=== PATIENT | male | born 1955 | race Caucasian/White ===

== ENCOUNTER 2022-12-17 11:07 | Outpatient (OUT) | payer MEDICARE, SELFPAY ==
[2022-12-17 12:01] LABS: Basophils Percent Auto 0.3 % (0.2-2.0); Hematocrit 42.8 % (42.0-54.0); Hemoglobin 14.3 g/dL (14.0-18.0); Immature Granulocytes Abs Auto 0.01 10^3/uL (0.00-0.03); Immature Granulocytes Pct Auto 0.2 % (0.0-0.5); Lymphocytes Absolute Auto 1.6 10^3/uL (1.2-3.8); Lymphocytes Percent Auto 25.2 % (20.5-60.0); Mean Corpuscular HGB Conc 33.4 g/dL (29.9-35.2); Mean Corpuscular Hemoglobin 31.6 pg (25.9-34.0); Mean Corpuscular Volume 94.5 fL (80.0-94.0); Mean Platelet Volume 10.1 fL (9.5-13.5); Monocytes Absolute Auto 0.4 10^3/uL (0.3-0.8); Monocytes Percent Auto 6.9 % (1.7-12.0); Neutrophils Absolute Auto 4.2 10^3/uL (1.4-6.5); Neutrophils Percent Auto 67.4 % (43.0-75.0); Platelet Count 222 10^3/uL (150-450); Red Blood Count 4.53 10^6/uL (4.70-6.10); Red Cell Distribution Width 13.2 % (11.0-15.0); White Blood Count 6.3 10^3/uL (4.0-11.0)
--- NOTE | 2022-12-17 12:02 | PM.PRESUREVA ---
History of Present Illness History of Present Illness Chief complaint: bladder lesion, history of bladder cancer Narrative: Patient presents for preadmission testing. Please see HPI from Dr. Devries dated 12/10/2022. Review of Systems ROS Narrative Please see ROS from Dr. Devries dated . [facility] Medical History (Updated 12/17/22 @ 12:04 by China Marvin NP) Surgical History (Updated 12/17/22 @ 11:54 by China Marvin NP) (07/18/22) (07/16/22) Family History (Updated 12/17/22 @ 11:54 by China Marvin NP) Other Family history of hypertension Family history of lung cancer Family history of prostate cancer Family history of throat cancer Social History (Updated 12/17/22 @ 11:57 by China Marvin NP) Within the past year, how often did you have a drink containing alcohol: 2-3 times a week Smoking status: Current every day smoker Non-prescribed substance use: cannabis (any form) Previous occupational history: Retired Highest level of school completed/degree received: high school graduate Meds Home Medications and Allergies Allergies Allergy/AdvReac Type Severity Reaction Status Date / Time No Known Drug Allergies Allergy Verified 12/17/22 11:26 Exam Narrative Exam Narrative: Constitutional: Awake, alert, comfortable, well-appearing, nontoxic, interactive, vital signs as charted Head: Normocephalic, atraumatic Neck: Supple, normal appearance, normal range of motion, no meningeal signs, no lymphadenopathy Respiratory: No respiratory distress, breath sounds clear Cardiovascular: Regular rate and rhythm, strong and regular heart tones Abdomen: Nontender, normal bowel sounds, soft, no CVA tenderness Musculoskeletal: Normal gait, no swelling or edema Skin: No rashes or induration, no lesions, only visible skin inspected Neuro: No neurological deficits, normal sensation Psychiatric: Oriented ?3, normal affect Assessment and Plan Assessment and Plan (1) Bladder cancer: (2) Bladder tumor: (3) Lesion of bladder: Plan Cystoscopy, bladder biopsy, TURBT scheduled with Dr. Devries 01/09/2023.
[2022-12-17 12:18] LABS: Prothrombin Time 10.6 sec (9.0-11.6)
[2022-12-17 13:25] LABS: Anion Gap 11.3; BUN Creatinine Ratio 15.5; Calcium 9.3 mg/dL (8.5-10.1); Chloride 106 mmol/L (98-107); Estimated GFR (African America >60 (>=60); Estimated GFR (Non-African Ame >60 (>=60); Glucose 114 mg/dL (74-106); Potassium 4.3 mmol/L (3.5-5.1); Sodium 143 mmol/L (136-145)
== END 2022-12-17 11:08 | disposition home or self-care (01) ==
LOC: PST 11:08
PROVIDERS: PCP Family Medicine; Visit Provider Urology
DX: Z01.812 Encounter for preprocedural laboratory examination (principal); D49.4 Neoplasm of unspecified behavior of bladder; Z85.51 Personal history of malignant neoplasm of bladder; N40.0 Benign prostatic hyperplasia without lower urinary tract symptoms; N20.0 Calculus of kidney; Z80.42 Family history of malignant neoplasm of prostate
CPT/HCPCS: 80048; 85025; 85610; 85730; G0463

== ENCOUNTER 2023-01-09 06:57 | Day surgery (SDC) | payer MEDICARE, SELFPAY ==
[2022-12-17 11:54] VITALS: BP 118/72; PULSE 62; RESP 14; TEMP 36.6; O2SAT 98; BMI 25.7
[2023-01-09] VITALS (10 sets, daily range): BP systolic 120–144; BP diastolic 69–88; PULSE 55–73; RESP 11–24; TEMP 36.2; O2SAT 94–99; BMI 25.4
[2023-01-09 07:21] LABS: Partial Thromboplastin Time 28.5 sec (22.3-36.2)
[2023-01-09] MEDS: LACTATED RINGER'S SOLUTION 1,000 ML 50 ML IV ×2 (07:35→08:33)
[2023-01-09] MEDS: CEFAZOLIN SODIUM/DEXTROSE,ISO 1 GM/50 ML IV.SOLN IV (07:51)
--- NOTE | 2023-01-09 08:42 | P.URON_ITS ---
Urology Surgery Operative Note Operative Note Procedure Date: 01/09/23 Time Out Performed: yes Pre-op Diagnosis: bladder lesions Post-op Diagnosis: same as pre-op Procedures performed: #1. Cystoscopy. #2. Transurethral resection of bladder lesions approximately 3 cm Anesthesia: FELIX Primary Surgeon: John Devries Complications: none Estimated blood loss (mL): 5 Findings: raised red lesions on the periphery of prior resection sites. Specimens: bladder lesions. 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 He has undergone bacille Calmette-Zhao initiation and maintenance treatments. On surveillance cystoscopy he was found to have a raised red areas along the periphery of prior resection sites. He now presents for cystoscopy and transurethral resection of these lesions. He has signed an informed consent after all risks were explained. Detailed description of Procedure: The patient was brought to the operating room and placed on the operating room table in the supine position. SCDs were placed on the lower extremities and turned on and functioning during the entire case. Timeout was done by all parties in the room. We all agreed upon the patient's identification and the planned procedures for this patient. Genn. anesthesia was then administeredvia the endotracheal route withh paralysis. The patient was then repositioned into the modified dorsal lithotomy position. All pressure points were satisfactorily padded. Genitalia were sterilely prepped and draped in usual fashion.started by passing a 26 Occitan Olympus resectoscope with the standard bipolar loop electrode per urethra and into the bladder. No new tumors were noted. The previously seen raised red areas along the periphery of the prior resection site were noted. I uniformly and deeply resected these areas. The resection beds were coagulated with the loop electrode. The [employer] evacuator was used to get all the tumor pieces out of the bladder. These were sent for permanent sections. The rest of the bladder was very carefully evaluated. I found no evidence of any other lesions or tumors. Upon completion, there was no bleeding. I elected not to place a catheter. The bladder was drained of its contents. The scope was then removed. The anesthetic was then reversed. He was then transferred to a [facility] bed and wheeled to PACU in stable condition.
--- NOTE | 2023-01-09 09:48 | PC.NURSE ---
Denies need to void at present time
--- NOTE | 2023-01-09 10:28 | PC.NURSE ---
1011- voids 100 cc of clear yellow urine without difficulty via urinal.
== END 2023-01-09 10:30 | disposition home or self-care (01) ==
PROVIDERS: PCP Family Medicine; Visit Provider Urology
PROC: (CPT 52235; principal; 2023-01-09 08:00)
DX: C67.9 Malignant neoplasm of bladder, unspecified (principal); Z85.51 Personal history of malignant neoplasm of bladder; N40.1 Benign prostatic hyperplasia with lower urinary tract symptoms; Z87.442 Personal history of urinary calculi; Z80.42 Family history of malignant neoplasm of prostate; R97.20 Elevated prostate specific antigen [PSA]; R35.1 Nocturia; R80.9 Proteinuria, unspecified; N52.9 Male erectile dysfunction, unspecified; F17.210 Nicotine dependence, cigarettes, uncomplicated
CPT/HCPCS: 52235; 36415; 85730; 88305; J2704

== ENCOUNTER 2023-01-15 09:36 | Outpatient (OUT) | payer MEDICARE, SELFPAY ==
--- NOTE | 2023-01-15 09:39 | CT_ITS ---
[address] [address] Patient Name: DARIAN DUENAS MRN: [id number] date: 1955 Sex: M Assigned Patient Location: CT Current Patient Location: Accession/Order Number: [id number] Exam Date: 01/15/2023 09:42 Report Date: 01/16/2023 09:07 At the request of: TANNER WILLIS Procedure: CT lung screening low-dose EXAMINATION: CT lung screening low-dose HISTORY: Nicotine Dependence F17.210 COMPARISON: No relevant comparison available. TECHNIQUE: Axial, Coronal, and Sagittal images were created without the administration of IV contrast material. Dose reduction techniques were achieved by using automated exposure control and/or adjustment of mA and/or kV according to patient size and/or use of iterative reconstruction technique. FINDINGS: LUNGS: Numerous tiny calcifications scattered within the lungs compatible with chronic granulomatous disease. No suspicious nodules or infiltrates. Minimal emphysematous changes. PLEURA: No mass, effusion, or pneumothorax. VASCULATURE: No abnormality. VALENTINO: Calcified lymph nodes compatible with chronic granulomatous disease. MEDIASTINUM: Calcified lymph nodes. CARDIAC: No enlargement, pericardial thickening, or significant calcification. AORTA: No aneurysm or dissection. CHEST WALL: No mass or axillary adenopathy BONES: No bone lesion or fracture. LIMITED ABDOMEN: No suspicious findings. Limited images of the upper abdomen. OTHER: Negative. CT/CT lung screening low-dose IMPRESSION: 1. Lung-RADS Category 1 Negative. No nodules and definitely benign nodules. Continue annual screening with LDCT in 12 months. Electronically authenticated by: CLARIBEL COX Date: 01/16/2023 09:07
== END 2023-01-15 09:37 | disposition home or self-care (01) ==
LOC: CT 09:36
PROVIDERS: PCP Family Medicine; Visit Provider Family Medicine
DX: F17.210 Nicotine dependence, cigarettes, uncomplicated (principal)
CPT/HCPCS: 71271

== ENCOUNTER 2023-02-12 10:08 | Outpatient (OUT) | payer MEDICARE, SELFPAY ==
--- NOTE | 2023-02-12 10:56 | PM.PRESUREVA ---
History of Present Illness History of Present Illness Chief complaint: highgrade bladder CA Narrative: Patient presents for preadmission testing. The patient states he has a history of bladder cancer. He's had several procedures for this and is frustrated at this point that he needs another procedure. His last cystoscopy/TURBT was done here on 01/09/2023. The patient states he's not having any urinary complaints at this time and he is not taking any medications. Review of Systems ROS Narrative REVIEW OF SYSTEMS: Negative except as stated in HPI, ten or more systems reviewed. Constitutional: No fever , chills, weakness ENT: No sore throat or epistaxis Cardiovascular: No edema, chest pain, palpitations, or activity intolerance Respiratory: No shortness of breath, cough, or wheezing Musculoskeletal: No joint pain or swelling Gastrointestinal: No abdominal pain, constipation, diarrhea, or vomiting Genitourinary: No dysuria or hematuria Neurological: No numbness, tingling, weakness, or headache Psychiatric: No mood changes PFSH PFSH Medical History (Updated 12/17/22 @ 12:04 by China Marvin NP) Arthritis ?M19.90 - Unspecified osteoarthritis, unspecified site (ICD-10) Bladder cancer ?C67.9 - Malignant neoplasm of bladder, unspecified (ICD-10) Bladder tumor ?D49.4 - Neoplasm of unspecified behavior of bladder (ICD-10) Groin pain ?R10.30 - Lower abdominal pain, unspecified (ICD-10) Heartburn ?R12 - Heartburn (ICD-10) Lesion of bladder ?N32.9 - Bladder disorder, unspecified (ICD-10) Shoulder joint derangement ?M24.9 - Joint derangement, unspecified (ICD-10) Tooth fracture ?S02.5XXA - Fracture of tooth (traumatic), initial encounter for closed fracture (ICD-10) Surgical History (Updated 02/12/23 @ 10:55 by China Marvin NP) H/O arthroscopy of shoulder ?Z98.890 - Other specified postprocedural states (ICD-10) H/O cystoscopy (01/09/23) ?Z98.890 - Other specified postprocedural states (ICD-10) H/O hemorrhoidectomy ?Z98.890 - Other specified postprocedural states (ICD-10) H/O umbilical hernia repair ?Z98.890 - Other specified postprocedural states (ICD-10) ?Z87.19 - Personal history of other diseases of the digestive system (ICD-10) History of arthroplasty of knee ?Z96.659 - Presence of unspecified artificial knee joint (ICD-10) History of colonoscopy ?Z98.890 - Other specified postprocedural states (ICD-10) History of esophagogastroduodenoscopy (EGD) ?Z98.890 - Other specified postprocedural states (ICD-10) S/P cystoscopy (07/18/22) ?Z98.890 - Other specified postprocedural states (ICD-10) S/P cystoscopy (07/16/22) ?Z98.890 - Other specified postprocedural states (ICD-10) Family History (Updated 12/17/22 @ 11:54 by China Marvin NP) Other Family history of hypertension Family history of lung cancer Family history of prostate cancer Family history of throat cancer Social History (Updated 01/09/23 @ 07:23 by Zara Denise RN) Within the past year, how often did you have a drink containing alcohol: 2-4 times a month Smoking status: Current every day smoker Non-prescribed substance use: cannabis (any form) Previous occupational history: Retired Highest level of school completed/degree received: high school graduate Meds Home Medications and Allergies Allergies Allergy/AdvReac Type Severity Reaction Status Date / Time No Known Drug Allergies Allergy Verified 02/12/23 10:28 Exam Narrative Exam Narrative: Constitutional: Awake, alert, comfortable, well-appearing, nontoxic, interactive, vital signs as charted Head: Normocephalic, atraumatic Neck: Supple, normal appearance, normal range of motion, no meningeal signs, no lymphadenopathy Respiratory: No respiratory distress, breath sounds clear Cardiovascular: Regular rate and rhythm, strong and regular heart tones Abdomen: Nontender, normal bowel sounds, soft, no CVA tenderness Musculoskeletal: Normal gait, no swelling or edema Skin: No rashes or induration, no lesions, only visible skin inspected Neuro: No neurological deficits, normal sensation Psychiatric: Oriented ?3, normal affect Assessment and Plan Assessment and Plan (1) Bladder cancer: Plan Cystoscopy, re- resection of bladder tumor bed scheduled with Dr. Devries 02/20/2023.
[2023-02-12 10:57] LABS: Basophils Percent Auto 0.3 % (0.2-2.0); Hemoglobin 14.7 g/dL (14.0-18.0); Immature Granulocytes Abs Auto 0.02 10^3/uL (0.00-0.03); Immature Granulocytes Pct Auto 0.3 % (0.0-0.5); Lymphocytes Absolute Auto 1.5 10^3/uL (1.2-3.8); Lymphocytes Percent Auto 21.5 % (20.5-60.0); Mean Corpuscular HGB Conc 33.4 g/dL (29.9-35.2); Mean Corpuscular Volume 95.9 fL (80.0-94.0); Mean Platelet Volume 10.3 fL (9.5-13.5); Monocytes Absolute Auto 0.5 10^3/uL (0.3-0.8); Monocytes Percent Auto 7.7 % (1.7-12.0); Neutrophils Absolute Auto 4.7 10^3/uL (1.4-6.5); Neutrophils Percent Auto 70.2 % (43.0-75.0); Platelet Count 229 10^3/uL (150-450); Red Blood Count 4.59 10^6/uL (4.70-6.10); Red Cell Distribution Width 13.2 % (11.0-15.0); White Blood Count 6.8 10^3/uL (4.0-11.0)
[2023-02-12 11:30] LABS: INR 1.03; Partial Thromboplastin Time 28.9 sec (22.3-36.2); Prothrombin Time 10.9 sec (9.0-11.6)
[2023-02-12 11:54] LABS: Anion Gap 10.7; BUN Creatinine Ratio 14.9; Calcium 9.2 mg/dL (8.5-10.1); Carbon Dioxide 28.3 mmol/L (21.0-32.0); Chloride 104 mmol/L (98-107); Estimated GFR (African America >60 (>=60); Estimated GFR (Non-African Ame >60 (>=60); Glucose 98 mg/dL (74-106); Sodium 139 mmol/L (136-145)
== END 2023-02-12 10:09 | disposition home or self-care (01) ==
LOC: PST 10:09
PROVIDERS: PCP Family Medicine; Visit Provider Urology
DX: Z01.812 Encounter for preprocedural laboratory examination (principal); Z85.51 Personal history of malignant neoplasm of bladder; Z80.42 Family history of malignant neoplasm of prostate
CPT/HCPCS: 80048; 85025; 85610; 85730; G0463

== ENCOUNTER 2023-02-20 07:44 | Day surgery (SDC) | payer MEDICARE, SELFPAY ==
[2023-02-12 10:53] VITALS: BP 120/72; PULSE 61; RESP 16; TEMP 36.6; O2SAT 97; BMI 25.6
[2023-02-20] VITALS (8 sets, daily range): BP systolic 118–165; BP diastolic 56–91; PULSE 54–74; RESP 12–26; TEMP 36.2–36.3; O2SAT 97–100
[2023-02-20] MEDS: LACTATED RINGER'S SOLUTION 1,000 ML 50 ML IV (08:18)
[2023-02-20] MEDS: CEFAZOLIN SODIUM/DEXTROSE,ISO 1 GM/50 ML IV.SOLN IV (08:45)
--- NOTE | 2023-02-20 09:59 | PM.URSON ---
Urology Surgery Operative Note Operative Note Procedure Date: 02/20/23 Time Out Performed: yes Pre-op Diagnosis: history of high-grade invasive TCC of the bladder Post-op Diagnosis: same as pre-op Procedures performed: #1. Cysstoscopy. #2. Transurethral resection of bladder tumors and former tumor beds. #3. Bladder biopsies with cold cup forceps. Anesthesia: GETA Primary Surgeon: John Devries Complications: none Estimated blood loss (mL): 5 Findings: a few new tiny tumors on the floor of the bladder adjacent to the resection bed. A new red raised area on the back wall. Specimens: #1. Re-rresection of tumor beds and new tumors. #2. Muscle biopsies of tumor bed with cold cup forceps. Drains: 20 Icelandic Parker catheter in the bladder. Indications for Procedures: this gentleman has a history of high-grade invasive TCC of the bladder. And his last resection in December muscle was not seen by pathology in the specimen. He now presents for re-resection of his tumor beds in order to get muscle for accurate staging. He has signed an informed consent after all risks were explained in great detail. Detailed description of Procedure: The patient was brought to the operating room and placed on the operating room table in the supine position. SCDs were placed on the lower extremities and turned on and functioning during the entire case. Timeout was done by all parties in the room. We all agreed upon the patient's identification and the planned procedures for this patient. Genn. anesthesia was then administered. The patient was then repositioned into the modified dorsal lithotomy position. All pressure points were satisfactorily padded. Genitalia were sterilely prepped and draped in usual fashion.I started by passing a 26 Icelandic Olympus resectoscope with the standard bipolar loop electrode per urethra and into the bladder. The anterior urethra was normal. The prostatic urethra was open. Panendoscopy in the bladder showed that adjacent to a prior resection site. There was a few tiny tumors which were new. For on the back wall as was a new red raised area adjacent to this. All. Using the resectoscope. I uniformly resected the previous resection bed making sure to get more muscle out. I also resected these new tiny tumors. The raised red area adjacent on the back wall was also resected. All of this tumor was extracted out with the [employer] evacuator and sent for permanent sections labeled tumor resections. I then passed a 22 Icelandic cystoscope and the bladder and used a cold cup biopsy forceps and biopsied. The resected beds directly into muscle. 4 separate biopsies were obtained from the muscle and these were sent separately labeled muscle biopsies of bladder. The resectoscope was then passed back in the bladder and I coagulated the resection beds him today. Upon completion there was no tumor or red area remaining in the bladder. There was no bleeding. The scope was then removed. I then placed a 20 Icelandic two-way Parker in the bladder and 10 mL of fluid in the balloon. It drained clear. The anesthetic was then reversed. He was then transferred to a [facility] bed and wheeled to PACU in stable condition. He will be discharged to home later today with a prescription for Keflex 500 mg twice a day for a week and Vesicare 10 mg daily for a week. Pending review of the pathology. We will give him another 6 treatments of bacille Calmette-Zhao starting in early March.
[2023-02-20] MEDS: SOLIFENACIN SUCCINATE 10 MG TABLET PO (10:37)
== END 2023-02-20 11:08 | disposition home or self-care (01) ==
PROVIDERS: PCP Family Medicine; Visit Provider Urology
PROC: (CPT 52204; principal; 2023-02-20 08:40)
DX: N40.1 Benign prostatic hyperplasia with lower urinary tract symptoms (principal); R31.9 Hematuria, unspecified; R97.20 Elevated prostate specific antigen [PSA]; N52.9 Male erectile dysfunction, unspecified; Z80.42 Family history of malignant neoplasm of prostate; R12 Heartburn; N32.9 Bladder disorder, unspecified; Z96.659 Presence of unspecified artificial knee joint; F17.200 Nicotine dependence, unspecified, uncomplicated
CPT/HCPCS: 52204; 52235; 36415; 88305; 88307; 88341; 88342; J2704

== ENCOUNTER 2023-08-25 14:26 | Outpatient (OUT) | payer MEDICARE, SELFPAY ==
--- OUTSIDE RECORDS SUMMARY | 2023-08-25 14:48 | XMS_ITS | CCD ---
Author Organization [facility]ini[facility] Care Team Providers Care Coal Pipeline Operator Name Role Phone CATRACHO WILLIS Primary Care UnavailJAMIE Collier Attending Unavailable Jesika, Nahid Unavailable Les Paul Unavailable MD Catracho Willis Primary Care Provider [phone] DO Nahid Canchola Attending Provider CATRACHO WILLIS Primary Care Physician [phone] MD Catracho Willis Primary Care Provider DO Nahid Canchola A Attending Provider [phone] MD Catracho Willis Primary Care Provider DO Nahid Canchola A Attending Provider MD Mickie Cooper Attending Provider Mickie Cooper Unavailable Catracho Willis Primary Care Unavailable Jesika, Nahid A Admitting Unavailable Jesika, Nahid A Attending Unavailable Catracho Willis Primary Care Unavailable Jesika, Nahid A Attending Unavailable Jesika, Nahid A Admitting Unavailable Jesika, Nahid A Attending Unavailable Catracho Willis Primary Care Unavailable Jesika, Nahid A Admitting Unavailable Jesika, Nahid A Attending Unavailable Catracho Willis Primary Care Unavailable Jesika, Nahid A Admitting Unavailable Jesika, Nahid A Attending Unavailable Catracho Willis Primary Care Unavailable Jesika, Nahid A Admitting Unavailable Mickie Cooper Attending Unavailable Nelly, Catracho Primary Care Unavailable Mickie Cooper Admitting Unavailable Nelly, Catracho Primary Care Unavailable Jesika, Nahid A Attending Unavailable Jesika, Nahid A Admitting Unavailable Nelly, Catracho Primary Care Unavailable Jesika, Nahid A Admitting Unavailable Jesika, Nahid A Attending Unavailable Naderer, Catracho Primary Care Unavailable Jesika, Nahid A Admitting Unavailable Jesika, Nahid A Attending Unavailable DEVRIES ., DR RANDALL Consulting Unavailable DEVRIES ., DR RANDALL Admitting Unavailable NADERER, DR CATRACHO Coronado Primary Care Unavailable DEVRIES ., DR RANDALL Attending Unavailable ZIEBER, DR CLARIBEL Vasquez Consulting Unavailable NADERER, DR CATRACHO Coronado Primary Care Unavailable ETHAN, YAHAIRA Admitting Unavailable ETHAN, YAHAIRA Attending Unavailable ETHAN, YAHAIRA Consulting Unavailable DEVRIES ., DR RANDLAL Consulting Unavailable DEVRIES ., DR RANDALL Admitting Unavailable NADERER, DR CATRACHO Coronado Primary Care Unavailable DEVRIES ., DR RANDALL Attending Unavailable NAHID CANCHOLA Admitting Unavailable NADERER, DR CATRACHO Coronado Primary Care Unavailable NAHID CANCHOLA Attending Unavailable DEVRIES ., DR RANDALL Attending Unavailable NADERER, DR CATRACHO Coronado Primary Care Unavailable DEVRIES ., DR RANDALL Consulting Unavailable DEVRIES ., DR RANDALL Admkyaw Unavailable SANTACRUZSINAN Consulting Unavailable NORMA SMALL Consulting Unavailable DEVRIES ., DR RANDALL Attending Unavailable DEVRIES ., DR RANDALL Admitting Unavailable DEVRIES ., DR RANDALL Consulting Unavailable NADERER, DR CATRACHO Coronado Primary Care Unavailable DAMEON II, MICKIE Consulting Unavailable FILUTZE, LASHONDA Consulting Unavailable Hayley, Margaret Unavailable ETHAN, YAHAIRA E Attending Unavailable ETHAN, YAHAIRA E Attending Unavailable ETHAN, YAHAIRA E Attending Unavailable ETHAN, YAHAIRA E Attending Unavailable DEVRIES, Tonia R Admitting Unavailable DEVRIES, Tonia R Attending Unavailable DEVRIES, Tonia R Attending Unavailable DEVRIES, Tonia R Attending Unavailable DEVRIES, Tonia R Attending Unavailable DEVRIES, Tonia R Attending Unavailable DEVRIES, Tonia R Attending Unavailable DEVRIES, Tonia R Attending Unavailable DEVRIES, Tonia R Attending Unavailable ETHAN, YAHAIRA E Attending Unavailable ETHAN, YAHAIRA E Attending Unavailable DEVRIES, Tonia R Attending Unavailable ETHAN, YAHAIRA E Attending Unavailable DEVRIES, Tonia R Admitting Unavailable DEVRIES, Tonia R Attending Unavailable DEVRIES, Tonia R Admitting Unavailable DEVRIES, Tonia R Attending Unavailable DEVRIES, Tonia R Attending Unavailable DEVRIES, Tonia R Attending Unavailable DEVRIES, Tonia R Attending Unavailable ETHAN, YAHAIRA E Admitting Unavailable ETHAN, YAHAIRA E Attending Unavailable DEVRIES, Tonia R Admitting Unavailable DEVRIES, Tonia R Attending Unavailable DEVRIES, Tonia R Attending Tonia Sales Attending Unavailable Tonia DEVRIES Attending Unavailable Tonia DEVRIES Attending Unavailable Tonia DEVRIES Attending Unavailable CATRACHO WILLIS Attending Unavailable FLAQUITA SEE Attending Unavailable Medications Current Medications Medication Drug Class(es) Dates Sig (Normalized) Sig (Original) cephalexin 500 mg oral capsule (1 source) Cephalosporin Antibacterial Start: 07-26-2022 cephalexin 500 mg Cap Refills(s) 0 Start Date: 07/26/22 Status: Ordered diclofenac sodium 0.01 mg/mg topical gel (10 sources) Nonsteroidal Anti-inflammatory Drug Start: 05-18-2021 apply 1 g topically once daily Diclofenac Sodium Active 1 GM TOPICAL Daily May 18, 2021 1:00am Start: 03-12-2021 Voltaren 1 % a pply 1-2 grams to affected area Transdermal BID PRN for 30 days Feb, Active Start: 11-09-2020 take 1 tablet by brian th every twelve hours Diclofenac Sodium 75 MG 1 tablet Orally Twice a day for 30 day(s) Oct, Active doxycycline hyclate 100 mg oral tablet (4 sources) Tetracycline-class Drug Start: 07-02-2021 take 1 tablet by mouth every twelve hours Doxycycline Hyclate 100 MG 1 tablet Orally Twice a day for 7 days Do not fill 07/03/21 Jun, Active Magnesium (1 source) Magnesium Active 24 hr mirabegron 50 mg extended release oral tablet (17 sources) beta3-Adrenergic Agonist Start: 09-10-2022 take 1 tablet by mouth once daily Myrbetriq 50 mg oral tablet, extended release 50 mg = 1 tab(s), Oral, Daily, # 90 tab(s), Refills(s) 3, Pharmacy: [facility], 182, cm, 09/10/22 8:56:00 EDT, Height/Length Dosing, 85, kg, 09/10/22 8:56:00 EDT, Weight Dosing Start Date: 09/10/22 Status: Ordered Start: 04-05-2022 take 1 tablet by brian th once daily Myrbetriq 50 mg oral tablet, extended release 50 mg = 1 tab(s), Oral, Daily, # 30 tab(s), Refills(s) 11, Pharmacy: [facility], 182, cm, 01/07/22 12:37:00 EDT, Height/Length Dosing, 82, kg, 01/07/22 12:37:00 EDT, Weight Dosing Start Date: 04/05/22 Status: Ordered Multivitamin preparation (18 sources) Start: 05-18-2021 take 1 tablet by mouth once daily Multivitamin Active 1 TAB PO Daily May 18, 2021 12:00am Start: 05-18-2021 take 1 tablet by brian th once daily Multivitamin Active 1 TAB PO Daily May 18, 2021 1:00am take 1 tablet by brian th once daily Multivitamin - 1 tablet Orally Once a day Not-Taking take 1 tablet by brian th once daily Multivitamin - 1 tablet Orally Once a day Active omeprazole 40 mg delayed release oral capsule (18 sources) Proton Pump Inhibitor Start: 05-18-2021 Omeprazo le Active 40 MG PO Q48H May 18, 2021 1:00am take 1 capsule by mouth once ethan ly Omeprazole 40 MG 1 capsule 30 minutes before morning meal Orally Once a day Not-Taking oxybutynin chloride 5 mg oral tablet (3 sources) Cholinergic Muscarinic Antagonist Start: 05-13-2023 End: 05-07-2024 take 1 tablet by mouth at bedtime oxybutynin 5 mg Tab 5 mg = 1 tab(s), Oral, Bedtime, X 30 day(s), # 30 tab(s), Refills(s) 11, Pharmacy: [facility], 182, cm, 05/13/23 9:11:00 EST, Height/Length Dosing, 84, kg, 05/13/23 9:11:00 EST, Weight Dosing Start Date: 05/13/23 Stop Date: 05/07/24 Status: Ordered sulfamethoxazole 800 mg / trimethoprim 160 mg oral tablet (3 sources) Dihydrofolate Reductase Inhibitor Antibacterial, Sulfonamide Antimicrobial Start: 03-10-2023 End: 03-20-2023 take 1 tablet by mouth twice daily Bactrim D.S. 800 mg-160 mg Tab 1 tab(s), Oral, BID for 10 day(s), 20 tab(s), Refill(s) 0, [facility], 182, cm, 03/03/23 9:14:00 EST, Height/Length Dosing, 84, kg, 03/03/23 9:14:00 EST, Weight Dosing Start Date: 03/10/23 Stop Date: 03/20/23 Status: Ordered Start: 08-27-2022 End: 09-03-2022 take 1 tablet by mouth twice daily Bactrim D.S. 800 mg-160 mg Tab 1 tab(s), Oral, BID for 7 day(s), 14 tab(s), Refill(s) 0, [facility], 182, cm, 08/27/22 9:05:00 EDT, Height/Length Dosing, 85, kg, 08/27/22 9:05:00 EDT, Weight Dosing Start Date: 08/27/22 Stop Date: 09/03/22 Status: Ordered Completed/Discontinued Medications Medication Drug Class(es) Dates Sig (Normalized) Sig (Original) aspirin 81 mg chewable tablet (10 sources) Platelet Aggregation Inhibitor, Nonsteroidal Anti-inflammatory Drug Start: 07-02-2021 take 1 tablet by mouth every twelve hours Aspirin 81 MG 1 tablet Orally twice a day for 37 days Do not fill 07/03/21 Jun, Not-Taking celecoxib 100 mg oral capsule (4 sources) Nonsteroidal Anti-inflammatory Drug Start: 09-28-2021 take 1 capsule by mouth every twelve hours Celecoxib 100 MG 1 capsule with food Orally Twice a day for 30 day(s) Sep, Not-Taking ciprofloxacin 500 mg oral tablet (5 sources) Quinolone Antimicrobial Start: 11-05-2022 take 1 tablet by mouth once daily Cipro 500 mg Tab 500 mg = 1 tab(s), Oral, Daily, Take 1 tablet the day before the procedure and 1 tablet after the procedure, # 6 tab(s), Refills(s) 0, Pharmacy: [facility], 182, cm, 10/22/22 9:11:00 EDT, Height/Length Dosing, 84, kg, 10/22/22 9:11:00 EDT,... Start Date: 11/05/22 Status: Ordered Start: 07-26-2022 Cipro 500 mg T ab 500 mg = 1 tab(s), Oral, As Directed, Pt to take 1 tab the day before procedure and the 2nd tab the day of procedure once completed., # 2 tab(s), Refills(s) 0, Pharmacy: [facility], 182, cm, 07/26/22 9:01:00 EDT, Height/Length Dosing, 82, k... Start Date: 07/26/22 Status: Ordered Start: 06-25-2022 take 1 tablet by brian th once daily Cipro 500 mg Tab 500 mg = 1 tab(s), Oral, Daily, Take 1 tablet the day before the procedure and 1 tablet after the procedure, # 2 tab(s), Refills(s) 0, Pharmacy: [facility], 182, cm, 06/05/22 11:46:00 EDT, Height/Length Dosing, 82, kg, 06/05/22 11:46:00 EDT... Start Date: 06/25/22 Status: Ordered cyclobenzaprine hydrochloride 10 mg oral tablet (9 sources) Muscle Relaxant Start: 07-02-2021 take 1 tablet by mouth every eight hours as needed for muscle spasms Cyclobenzaprine HCl 10 MG 1 tablet as needed for muscle spasm Orally every 8 hours for 14 days Jun, Not-Taking docusate sodium 100 mg oral capsule (10 sources) Start: 07-02-2021 take 1 capsule by mouth every twelve hours Colace 100 MG 1 capsule Orally twice a day for 14 days Do not fill 07/03/21 Jun, Not-Taking oxyCODONE hydrochloride 5 mg oral tablet (10 sources) Opioid Agonist Start: 07-02-2021 take 1 tablet by mouth every four hours as needed for pain oxyCODONE HCl 5 MG 1 tablet as needed for pain Orally every 4 hours for 7 days Jun, Not-Taking tadalafil 10 mg oral tablet (15 sources) Phosphodiesterase 5 Inhibitor Start: 02-17-2023 take 1-2 tablets by mouth every hour as needed tadalafil 10 mg Tab 10 mg = 1 tab(s), Oral, Daily, PRN for erectile dysfunction, Take 1-2 pills by mouth, 1 hour prior to sexual relations., # 30 tab(s), Refills(s) 3, Pharmacy: [facility], 182, cm, 01/17/23 10:30:00 EDT, Height/Length Dosing, 84, kg, 01/17/23 10:30:00 EDT, Weight Dosing Start Date: 02/17/23 Status: Ordered Start: 09-21-2021 take 1 tablet by brian th every hour as needed, then take 2 tablets by mouth every twenty-four hours as needed Cialis 10 mg Tab 10 mg = 1 tab(s), Oral, Daily, PRN for erectile dysfunction, Take 1 tab 1 hour prior to sexual activity as needed. Don't exceed 2 tabs (20 mg) in a 24 hour period., # 30 tab(s), Refills(s) 3, Pharmacy: [facility], 182, cm, 12/04/20 11:58:0... Start Date: 09/21/21 Status: Ordered traMADol hydrochloride 50 mg oral tablet (10 sources) Opioid Agonist Start: 07-02-2021 take 1 tablet by mouth every four hours as needed for pain traMADol HCl 50 MG 1 tablet as needed for pain Orally every 4 hours for 7 days Jun, Not-Taking triamcinolone acetonide 40 mg/ml injectable suspension (20 sources) Corticosteroid Start: 06-10-2022 Kenalog-40 May, 40 mg Start: 03-12-2021 Kenalog -40 mg Feb, 40 mg Start: 01-10-2021 Kenalog -40 mg Dec, 40 mg Tylenol Extra Strength 500 MG (10 sources) Start: 07-02-2021 take 2 tablets by mouth every eight hours Tylenol Extra Strength 500 MG 2 tabs Orally every 8 hrs for 30 days Do not fill 07/03/21 Jun, Not-Taking Start: 07-02-2021 take 2 tablets by mo ut every eight hours Tylenol Extra Strength 500 MG 2 tabs Orally every 8 hrs for 30 days Do not fill 07/03/21 Jun, Active Problems Active Problems Problem Classification Problem Date Documented Date Episodic/Chronic Calculus of urinary tract (20 sources) Kidney stone; Translations: [Calculus of kidney] Onset: 07-26-2022 Episodic Cancer of bladder (20 sources) Malignant tumor of urinary bladder; Translations: [Malignant neoplasm of bladder, unspecified] Onset: 07-26-2022 Chronic Cancer of bladder (1 source) History of malignant neoplasm of bladder; Translations: [Personal history of malignant neoplasm of bladder] Onset: 06-24-2023 Episodic Cancer; other and unspecified primary (2 sources) H/O: malignant neoplasm 06-24-2023 Episodic Diverticulosis and diverticulitis (1 source) Diverticulosis of large intestine without perforation or abscess without bleeding; Translations: [DVRTCLOS LG INT NO PERF/ABSC W/O BL] Onset: 07-05-2022 Chronic Genitourinary symptoms and ill-defined conditions (20 sources) Proteinuria; Translations: [Nocturia] Onset: 06-27-2022 09-20-2019 Episodic Hyperplasia of prostate (20 sources) Benign prostatic hypertrophy without outflow obstruction; Translations: [Benign prostatic hyperplasia without lower urinary tract symptoms] Onset: 12-05-2021 Chronic Joint disorders and dislocations; trauma-related (19 sources) Internal derangement of left knee; Translations: [Unspecified internal derangement of left knee] Chronic Neoplasms of unspecified nature or uncertain behavior (4 sources) Neoplasm of unspecified behavior of bladder; Translations: [NEOPLASM UNS BEHAVIOR OF BLADDER] Onset: 07-18-2022 Episodic Osteoarthritis (20 sources) Arthritis of left knee; Translations: [Unilateral primary osteoarthritis, left knee] Onset: 01-10-2021 Resolved: 07-02-2021 Chronic Other connective tissue disease (10 sources) History of total knee arthroplasty; Translations: [Presence of left artificial knee joint] Chronic Other connective tissue disease (12 sources) Presence of left artificial knee joint; Translations: [PRESENCE LEFT ARTIFICIAL KNEE JOINT] Onset: 07-18-2021 Resolved: 12-03-2021 Chronic Other diseases of bladder and urethra (1 source) Unspecified urethral stricture, male, unspecified site; Translations: [UNSP URETHRAL STRCT MALE UNSP SITE] Onset: 07-30-2022 Episodic Other male genital disorders (4 sources) Male erectile dysfunction, unspecified; Translations: [Erectile dysfunction] Onset: 01-07-2022 Chronic Other male genital disorders (20 sources) Impotence 09-20-2019 Chronic Other non-traumatic joint disorders (2 sources) Pain in right shoulder Episodic Other screening for suspected conditions (not mental disorders or infectious disease) (20 sources) Raised prostate specific antigen; Translations: [Elevated prostate specific antigen [PSA]] Onset: 07-26-2022 Episodic Residual codes; unclassified (3 sources) Family history of cancer; Translations: [Family history of malignant neoplasm of prostate] Onset: 01-07-2022 Episodic Residual codes; unclassified (20 sources) Family history of prostate cancer 01-07-2022 Episodic Residual codes; unclassified (1 source) Family history of malignant neoplasm of prostate; Translations: [FAMILY HX MALIG NEOPLASM PROSTATE] Onset: 07-20-2022 Episodic Residual codes; unclassified (1 source) Personal history of other specified conditions; Translations: [PERSONAL HISTORY OTH SPEC CONDITION] Onset: 07-05-2022 Episodic Sprains and strains (7 sources) Sprain of medial collateral ligament of left knee, initial encounter; Translations: [Sprain of medial collateral ligament of left knee, subsequent encounter] Onset: 01-10-2021 Resolved: 12-03-2021 Episodic Substance-related disorders (1 source) Nicotine dependence, cigarettes, uncomplicated; Translations: [NICOTINE DEPEND CIGARETTES UNCOMP] Onset: 07-30-2022 Chronic Unclassified (1 source) Pain in right shoulder; Translations: [Pain in right shoulder] Onset: 06-10-2022 Unclassified (1 source) Presence of left artificial knee joint; Translations: [Presence of left artificial knee joint] Onset: 12-03-2021 Unclassified (1 source) Pain in left knee; Translations: [Pain in left knee] Onset: 10-26-2021 Unclassified (1 source) Z96.652 - Presence of left artificial knee joint; Translations: [Z96.652 - Presence of left artificial knee joint] Onset: 08-01-2021 Unclassified (1 source) M17.12 - Unilateral primary osteoarthritis, left knee; Translations: [M17.12 - Unilateral primary osteoarthritis, left knee] Onset: 07-05-2021 Unclassified (1 source) Z01.812 - Encounter for preprocedural laboratory examination; Translations: [Z01.812 - Encounter for preprocedural laboratory examination] Onset: 07-03-2021 Unclassified (1 source) Z01.818 - Encounter for other preprocedural examination; Translations: [Z01.818 - Encounter for other preprocedural examination] Onset: 07-02-2021 Past or Other Problems Problem Classification Problem Date Documented Da te Episodic/Chronic Joint disorders and dislocations; trauma-related (4 sources) Other tear of medial meniscus, current injury, left knee, initial encounter; Translations: [Other tear of medial meniscus, current injury, left knee, subsequent encounter] Onset: 01-10-2021 Resolved: 04-23-2021 Episodic Other non-traumatic joint disorders (6 sources) Pain in left knee; Translations: [Acute pain of left knee M25.562] Onset: 01-10-2021 Resolved: 07-02-2021 Episodic Spondylosis; intervertebral disc disorders; other back problems (2 sources) Radiculopathy, lumbar region; Translations: [Radiculopathy, lumbar region] Onset: 03-21-2022 Episodic Unclassified (1 source) Contact with and (suspected) exposure to covid-19 Z20.822 Viral infection (1 source) COVID-19 Results Test Name Value Interpretation Reference Range Facil ity [facility] Fish and Urine Cyt o ([facility])on 06-30-2023 UVFISH & UC Diagnosis Info Invalid Interpretation Code [facility] Comment on above: Result Comment: A:Ur ine,Bladder Wash:Bladder Wash Diagnosis Summary - Diagnosis Summary - The U[facility] FISH study detected normal copy numbers for chromosomes 3, 7, 17, and 9p21. 93 cells were analyzed in this evaluation. No evidence of aneuploidy for chromosomes 3, 7, or 17 or deletion of the 9p21 locus was found in cells present in this specimen. This test does not rule out the possibility of a low grade non-invasive papillary urothelial carcinoma. These findings should be correlated with cytology and cystoscopy results.* CPT 99778, 62265 Microscopic Notes - Microscopic Notes - Abnormal cells 9p21 deletions: Abnormal cells aneploid events: Total cells analyzed: 93 Hematuria: Gross Description Site ID:A color Yellow fixative Alcohol Received 100 mls of clear yellow fluid with the patient's name and, Bladder Wash on the vial. Electronically signed by : on: 06/30/2023 12:01:35 Performed By: #### 1 [id number] #### [facility] [address] [place] [id number] Consent for Procedure/Surger yon 06-25-2023 Consent for Procedure/Surgery [id number]# 1.00TIFF Normal [facility] Ambulatory Visit Summaryon 0 06-24-2023 Ambulatory Visit Summary DARIAN DUENAS :1955 Visit Date:06/24/2023 Ambulatory Visit Instructions Your Diagnosis History of bladder cancer Elevated PSA Nocturia Your Care Team Attending Physician - BARB RAMIREZ, Tonia Vasquez Primary Care Physician - CATRACHO WILLIS MD This Is Your Medications List oxybutynin (oxybutynin 5 mg Tab) tadalafil (tadalafil 10 mg Tab) Procedures Performed Cystoscopy (06/24/2023), TURBT - Transurethral resection of bladder tumor (02/20/2023), TURBT - Transurethral resection of bladder tumor (01/09/2023), Cystoscopy (12/10/2022), TURBT - Transurethral resection of bladder tumor (07/18/2022), Arthroplasty of knee (2021), Cystoscopy (10/15/2013), Transrectal biopsy of prostate using ultrasound (US) guidance, Transrectal biopsy of prostate using ultrasound (US) guidance. Discharge Vitals Temperature (Temporal Artery) 37 ?C Heart Rate (Peripheral) 69 Respiratory Rate 16 Blood Pressure 132/77 Height 182 cm Height 72 in Weight 84 kg Weight 184.8 lb BMI 25.36 What to do next You Need to Schedule the Following Appointments Follow Up with BARB RAMIREZ, Tonia Vasquez, ADAM When: Where: [facility] [address] , [place] [address]- [phone] Medications What How Much When Instructions Unchanged oxybutynin (oxybutynin 5 mg Tab) 1 Tablets By Mouth At bedtime Duration: 30 Days Unchanged tadalafil (tadalafil 10 mg Tab) 1 Tablets By Mouth Every day as needed for for erectile dysfunction Take 1-2 pills by mouth, 1 hour prior to sexual relations. Medications and Immunizations Administered Given lidocaine Top 2% Gel w/Appl 6 mL, 6 mL, Topical. For: Not Given influenza virus vaccine, inactivated, Postpone due to refusal Allergies No Known Allergies Problems Ongoing - Any problem that you are currently receiving treatment for. Bladder cancer BPH (benign prostatic hyperplasia) Elevated PSA Family history of prostate cancer History of bladder cancer Impotence Kidney stone Nocturia Proteinuria Split urinary stream Urinary urgency Patient Survey You may receive a survey via text or e-mail asking about your office visit. Please share your experience with us by completing your survey. We appreciate your feedback and thank you for choosing us for your care. Education Materials Cancer Screening for Men A cancer screening is a test or exam that checks for cancer. Your health care provider will recommend specific cancer screenings based on your age, medical history (including risk factors), and family history of cancer. Work with your health care provider to create a cancer screening schedule that protects your health. Who should have screening? All men should be considered for screening of certain cancers, including colorectal cancer, prostate cancer, lung cancer, and skin cancer. Your health care provider may recommend screenings for other types of cancer if: ? You had cancer before. ? You have a family member with cancer. ? You have abnormal genes that could increase the risk of cancer. ? You have risk factors for certain cancers, such as current or past use of tobacco products, or being overweight. When you should be screened for cancer depends on: ? Your age. ? Your medical history and your family's medical history. ? Certain lifestyle factors, such as smoking or other use of tobacco products. ? Environmental exposure, such as to asbestos. How is screening done? Colorectal cancer All adults should have screenings starting at age 45 and continuing until age 75. Your health care provider may recommend screening before age 45. You will have tests every 1?10 years, depending on your results and the type of screening test. People at increased risk should start screening at an earlier age. Talk with your health care provider about which screening test is right for you and how often you should be screened. Colorectal cancer screening looks for cancer or for growths called polyps that often form before cancer starts. Tests to look for cancer or polyps include: ? Colonoscopy or flexible sigmoidoscopy. For these procedures, a flexible tube with a small camera is inserted into the rectum. ? CT colonography. This test uses X-rays and a contrast dye to check the colon for polyps. If a polyp is found, you may need to have a colonoscopy so the polyp can be located and removed. Tests to look for cancer in the stool (feces) include: ? Guaiac-based fecal occult blood test (FOBT). This test can find blood in stool. It can be done at home with a kit. ? Fecal immunochemical test (FIT). This test can find blood in stool. For this test, you will need to collect stool samples at home. ? Stool DNA test. This test looks for blood in stool and any changes in DNA that can lead to colon cancer. For this test, you will need to collect a stool sample at home and send it to a lab. Prostate cancer Prostate canc (more content not included)... Normal [facility] Patient Educationon 06-24-19 Patient Education Oncology Cancer Screening for Men A cancer screening is a test or exam that checks for cancer. Your health care provider will recommend specific cancer screenings based on your age, medical history (including risk factors), and family history of cancer. Work with your health care provider to create a cancer screening schedule that protects your health. Who should have screening? All men should be considered for screening of certain cancers, including colorectal cancer, prostate cancer, lung cancer, and skin cancer. Your health care provider may recommend screenings for other types of cancer if: ? You had cancer before. ? You have a family member with cancer. ? You have abnormal genes that could increase the risk of cancer. ? You have risk factors for certain cancers, such as current or past use of tobacco products, or being overweight. When you should be screened for cancer depends on: ? Your age. ? Your medical history and your family's medical history. ? Certain lifestyle factors, such as smoking or other use of tobacco products. ? Environmental exposure, such as to asbestos. How is screening done? Colorectal cancer All adults should have screenings starting at age 45 and continuing until age 75. Your health care provider may recommend screening before age 45. You will have tests every 1?10 years, depending on your results and the type of screening test. People at increased risk should start screening at an earlier age. Talk with your health care provider about which screening test is right for you and how often you should be screened. Colorectal cancer screening looks for cancer or for growths called polyps that often form before cancer starts. Tests to look for cancer or polyps include: ? Colonoscopy or flexible sigmoidoscopy. For these procedures, a flexible tube with a small camera is inserted into the rectum. ? CT colonography. This test uses X-rays and a contrast dye to check the colon for polyps. If a polyp is found, you may need to have a colonoscopy so the polyp can be located and removed. Tests to look for cancer in the stool (feces) include: ? Guaiac-based fecal occult blood test (FOBT). This test can find blood in stool. It can be done at home with a kit. ? Fecal immunochemical test (FIT). This test can find blood in stool. For this test, you will need to collect stool samples at home. ? Stool DNA test. This test looks for blood in stool and any changes in DNA that can lead to colon cancer. For this test, you will need to collect a stool sample at home and send it to a lab. Prostate cancer Prostate cancer screening for men with average risk may start at age 50. Men with risk factors may need to be screened earlier, at ages 40?45. Talk with your health care provider about whether screening is right for you and, if so, how often you should be screened. Prostate cancer screening is done with blood tests and a digital rectal exam. During this exam, a health care provider uses a gloved finger to check prostate size. You may need to be screened for prostate cancer if: ? You have risk factors for prostate cancer, such as being or having a close family member with prostate cancer. ? You have had gene changes or a genetic condition that was passed on to you from a parent (inherited). These gene changes or genetic conditions include BRCA1 or BRCA2 gene mutations or Obrien syndrome. ? You have symptoms of prostate cancer, such as problems urinating or problems getting or keeping an erection (erectile dysfunction). When you have been screened for prostate cancer, future screening may be recommended based on the results of your blood tests. Lung cancer Lung cancer screening is done with a CT scan that looks for abnormal changes in the lungs. Discuss lung cancer screening with your health care provider if you are 50?80 years old and if any of the following apply to you: ? You currently smoke. ? You used to smoke heavily. ? You have a smoking history of 1 pack of cigarettes a day for 20 years or 2 packs a day for 10 years. ? You have quit smoking within the past 15 years. You may need to be screened every year if you smoke heavily or if you used to smoke. Skin cancer Skin cancer screening is done by checking the skin for unusual moles or spots and any changes in existing moles. Your health care provider should check your skin for signs of skin cancer at every physical exam. You should check your skin every month and tell your health care provider right away if anything looks unusual. Men with a urupvh-socp-cxmybk risk for skin cancer may want to see a senior medical billing specialist (sound engineering technician) for an annual body check. What are the benefits of screening? Cancer screening is done to look for cancer in the very early stages, before it spreads and becomes harder to treat and before you would start to notice symptoms. Finding cancer early improves the chances of successful treatment. It ma (more content not included)... Normal [facility] Fish and Urine Cyt o ([facility])on 06-24-2023 [facility] Method of Extraction Bladder Wash Normal [facility] Comment on above: Performed By: #### 1 [id number] #### [facility] Laboratory [address] [place] [address] [facility] Number of Jars 1 Invalid Interpretation Code [facility] Comment on above: Performed By: #### 1 [id number] #### [facility] Laboratory [address] [place] [address] [facility] Specimen Bladder Wash Normal [facility] Comment on above: Performed By: #### 1 [id number] #### [facility] Laboratory [address] [place] [address] [facility] Type of Service Technical Only Normal [facility] Comment on above: Performed By: #### 1 [id number] #### [facility] [address] [place] [address] Urology Office/Clinic Noteon 06-24-2023 Urology Office/Clinic Note Chief Complaint Pt is here for cystoscopy HPI Staff Darian is a 68 y.o. male here for cystoscopy. FISH/CYTOL needed. ABX taken History of Present Illness Tests reviewed: none I have reviewed the previous health record information and history for this patient from Dr. Devries and MAX Estrada. I have reviewed and verified the staff HPI to be accurate for this encounter. Review of Systems PHQ Score Initial Depression Screen Score: 0 SCORE ROS - Provider Constitutional: denies weight loss, denies hot flashes. Eyes: denies eye problems. Gastrointestinal: denies nausea, denies vomiting. Cardiovascular: denies chest pain or angina. Integumentary: no dryness Musculoskeletal: denies musculoskeletal symptoms. ENMT: denies otolaryngeal symptoms. Respiratory: no shortness of breath. Heme/Lymph: denies easy bleeding tendency, denies easy bruising tendency. Psychiatric: no confusion, no anxiety. Genitourinary: See HPI. Physical Exam Vitals & Measurements T: 37 ?C(Temporal Artery) HR: 69(Peripheral) RR: 16 BP: 132/77 HT: 72 in HT: 182 cm WT: 84 kg WT: 184.8 lb BMI: 25.36 General Appearance: alert, no distress, well nourished, well developed male. Genitourinary: normal scrotum, normal testes, normal urethra, normal epididymis, normal vas deferens/spermatic cord. Flank Pain: none. Bladder: nonpalpable. Procedure Operative Information Anesthesia Type: Local Procedure: Local Cystoscopy Complications: None Surgical risks, benefits, details of the procedure have been explained to the patient. Full informed consent has been obtained. Intraoperative Information Prepped: Patient is brought back to the endoscopy suite. Patient is placed in supine position. Patient prepped in the usual fashion with Betadine solution. 2% Xylocaine Jelly is placed per Urethra. After waiting several minutes, the Cystoscope is introduced. The Urethra is: Normal The Prostatic Urethra is: Bilobar obstruction The Bladder: No tumors or stones, Trabeculated: Mild (1)prior resection sites are well healed. The Ureteral orifices: Show efflux of clear urine Specimens Removed: Bladder wash sent for FISH and Cytology test Removal: Cystoscope is removed. The patient tolerated it well. Postoperative Information Patient is discharged home with antibiotic coverage. Follow up arranged. Assessment/Plan 1. History of bladder cancer (Z85.51: Personal history of malignant neoplasm of bladder) Cytology atypical urothelial cells, positive FISH 07/16/22. CT 06/2022 negative for suspicious bladder findings. S/p TURBT w/ left stent placement 07/18/22. 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 S/p cysto, L stent removal 08/09/22. [1] 6 BCGs done 10/2022. S/p cysto 12/10/22 - no classic bt found, but there are red/white areas of uncertainty. S/p cysto, TURBT 01/09/23. Updated path shows bladder mucosa with chronic inflammation, reactive changes and calcifications, no malignancy seen (vs prior path showing high grade, invasive papillary urothelial carcinoma, muscularis propria not id'd). [2] S/p Cysto/TURBT 02/20/23 - Path shows urothelial mucosa with acute inflammation and focal urothelial cytologic atypia, detrusor muscle is present [2] Completed 3 BCGs 05/13/23. Pt had IO cysto to check for bladder tumor recurrence without complications today. Pt took prophylactic abx prior to procedure. Will send bladder wash specimen for FISH/cytol and call pt if positive. Cysto today was negative for recurrence. -Surveillance cysto in 3 mos 2. Elevated PSA (R97.20: Elevated prostate specific antigen [PSA]) Two neg. bx's in the past. +family history, father from prostate cancer. PSA 05/07/18 - 1.26 09/06/19 - 0.73 08/29/20 - 0.96 12/05/21 - 1.32 12/09/22 - 0.7 3. Nocturia (R35.1: Nocturia) Taking Oxybutynin 5mg qhs. Follow-up With When Contact Information BARB RAMIREZ, Tonia Vasquez, URL [facility] [address], [place] [facility]], [place] [address] [phone] Additional Instructions: 3 mos for cysto Patient Education Cancer Screening for Men ILisset, personally scribed for Dr. Devries on 06/24/2023 13:23:26. . Documentation recorded by the scribe, Lisset Paul, accurately reflects the services(s) I performed and decisions made by me. Authenticated by Dr. Devries on 06/24/2023 13:25:13. Problem List/Past Medical History Ongoing Bladder cancer BPH (benign prostatic hyperplasia) Elevated PSA Family history of prostate cancer History of bladder cancer Impotence Kidney stone Nocturia Proteinuria Split urinary stream Urinary urgency Historical No qualifying data Procedure/Surgical History Cystoscopy (06/24/2023), TURBT - Transurethral resection of bladder tumor (02/20/2023), TURBT - Transurethral resection of bladder tumor (01/09/2023), Cystoscopy (12/10/2022), TURBT - Transurethra (more content not included)... [facility] Comment on above: Result Comment: Elec tronically Signed By: Tonia DEVRIES MD\.br\Date and Time Signed: 06/24/23 13:25 EDT\.br\Electronically Co-Signed By: Lisset Paul\.br\Date and Time Co-Signed: 06/24/23 13:23 EDT Ambulatory Visit Summaryon 0 05-13-2023 Ambulatory Visit Summary DARIAN DUENAS :1955 Visit Date:05/13/2023 Ambulatory Visit Instructions Your Diagnosis Nocturia Urinary urgency Elevated PSA Bladder cancer Your Care Team Attending Physician - YAHAIRA LONG PA-C Primary Care Physician - CATRACHO WILLIS MD This Is Your Medications List oxybutynin (oxybutynin 5 mg Tab) Contact prescribing physician if questions or concerns tadalafil (tadalafil 10 mg Tab) [Image Removed: STOP]Stop taking these medications mirabegron (Myrbetriq 50 mg oral tablet, extended release) Procedures Performed TURBT - Transurethral resection of bladder tumor (02/20/2023), TURBT - Transurethral resection of bladder tumor (01/09/2023), Cystoscopy (12/10/2022), TURBT - Transurethral resection of bladder tumor (07/18/2022), Arthroplasty of knee (2021), Cystoscopy (10/15/2013), Transrectal biopsy of prostate using ultrasound (US) guidance, Transrectal biopsy of prostate using ultrasound (US) guidance. Discharge Vitals Heart Rate (Peripheral) 68 Respiratory Rate 16 Blood Pressure 128/74 Height 182 cm Height 72 in Weight 84 kg Weight 184.8 lb BMI 25.36 What to do next Scheduled Follow-Up Appointments Friday 1:15 PM EDT With: Tonia DEVRIES MD Where: [facility] Patient Educationon 05-13-19 Patient Education Oncology Bladder Cancer Bladder cancer is a condition where abnormal tissue (a tumor) grows in the bladder. The bladder is the organ that holds urine. Two tubes (ureters) carry urine from the kidneys to the bladder. The bladder wall is made of layers of tissue. Cancer that spreads through these layers of the bladder wall becomes more difficult to treat. What increases the risk? The following factors may make you more likely to develop this condition: ? Smoking. ? Working where there are risks (occupational exposures), such as working with rubber, leather, clothing fabric, dyes, chemicals, or paint. ? Being 55 years of age or older. ? Being male. ? Having long-term bladder inflammation. ? Having a history of cancer. This includes: ? A family history of bladder cancer. ? Having had bladder cancer before. ? Having had certain treatments for cancer before, such as: ? Medicines to kill cancer cells (chemotherapy). ? Strong X-ray beams or high-energy capsules to kill cancer cells and shrink tumors (radiation therapy). ? Having been exposed to arsenic. This is a poisonous substance. What are the signs or symptoms? Early symptoms of this condition include: ? Blood in your urine. ? Pain when urinating. ? Infections of your urinary system (urinary tract infections or UTIs) that happen often. ? Having to urinate sooner or more often than normal. Late symptoms of this condition include: ? Not being able to urinate. ? Pain on one side of your lower back. ? Loss of appetite. ? Weight loss. ? Tiredness (fatigue). ? Swelling in your feet. ? Bone pain. How is this diagnosed? This condition is diagnosed based on: ? Your medical history. ? A physical exam. ? Lab tests, such as urine tests. ? Imaging tests. ? Your symptoms. You may also have other tests or procedures, such as: ? A cystoscopy. This involves putting a narrow tube into your urethra. The urethra is the organ that carries urine from your bladder to the outside of your body. This procedure is done to view the lining of your bladder for tumors. ? A biopsy. This involves removing a tissue sample to look at under a microscope to check for cancer. Blood tests or imaging tests may be needed. These show how far into the bladder wall cancer has grown, and if cancer has spread to any other parts of your body. Tests may include: ? CT scan. ? MRI. ? Bone scan. ? X-ray. How is this treated? Your health care provider may recommend one or more types of treatment based on the stage of your cancer. The most common treatments are: ? Surgery to remove the cancer. Types of surgeries include: ? Removing a tumor on the inside wall of the bladder (transurethral resection). ? Removing the bladder (cystectomy). ? Radiation therapy. This is often combined with chemotherapy. ? Chemotherapy. ? Immunotherapy. This uses medicines to help your body's disease-fighting system (immune system) destroy cancer cells. Follow these instructions at home: ? Take errz-bot-ctcwtxj and prescription medicines only as told by your health care provider. ? If you were prescribed an antibiotic medicine, take it as told by your health care provider. Do not stop using the antibiotic even if you start to feel better. ? Eat a healthy diet. Some treatments might affect your appetite. ? Do not use any products that contain nicotine or tobacco. These products include cigarettes, chewing tobacco, and vaping devices, such as e-cigarettes. If you need help quitting, ask your health care provider. ? Consider joining a support group. This may help you learn to deal with the stress of having bladder cancer. ? Tell your cancer care team if you develop side effects. Your team may be able to recommend ways to get relief. ? Keep all follow-up visits. This is important. Where to find more information ? [place] [employer] (ACS): cancer.org ? National Cancer [place] (NCI): cancer.gov Contact a health care provider if: ? You have symptoms of a UTI. These include: ? Fever. ? Chills. ? Weakness. ? Muscle aches. ? Pain in your abdomen. ? Urge to urinate that is stronger and happens more often than normal. ? Burning in the bladder or urethra when you urinate. Get help right away if: ? There is blood in your urine. ? You cannot urinate. ? You have severe pain or other symptoms that do not go away. Summary ? Bladder cancer is a condition where tumors grow in the bladder. ? Diagnosis is based on your medical history, a physical exam, lab tests, imaging tests, and your symptoms. ? Your health care provider may recommend one or more types of treatment based on the stage of your cancer. ? Consider joining a support group. This may help you learn to deal with the stress of having bladder cancer. This information is not intended to replace advice given to you by your health care provider. Make sure you discuss any questions you have wi (more content not included)... Normal [facility] Reminderson 05-13-2023 Reminders - From: Zee Briones To: [facility] - Recalls Devries; Cc: Zee Briones; Sent: 05/13/2023 09:52:37 EST Show up: 08/23/2023 09:52:00 EDT Subject: cysto/fish/cytol Due Date/Time: 09/08/2023 09:52:00 EDT Reminder/Recall Patient is due in September 2023 for 3 month cysto/fish/cytol Normal [facility] Urology Office/Clinic Noteon 05-13-2023 Urology Office/Clinic Note Chief Complaint BCG #3 of 3 HPI Staff 67 year old male here for BCG #3 of 3. Previous DX: bladder cancer, family H/O prostate cancer, nocturia and impotence. *Myrbetriq 50mg qd (pt states he is not taking) and Tadalafil 10mg PRN. Denies pain/burning and blood in urine. Still having urgency. Review of Systems PHQ Score Initial Depression Screen Score: 0 SCORE no fever, chills, malaise, myalgia. no rash/lesions. no chest pain, palpitations, or SOB. no abdominal pain, nausea, vomiting. no unilateral calf swelling, redness, pain Physical Exam Vitals & Measurements HR: 68(Peripheral) RR: 16 BP: 128/74 HT: 72 in HT: 182 cm WT: 84 kg WT: 184.8 lb BMI: 25.36 General: nontoxic, NAD Mouth: moist mucosa Lungs: normal respiratory effort Cardio: regular rate, good distal perfusion Abdomen: nondistended, no suprapubic distention or tenderness, no CVA tenderness Neurologic: Grossly normal Skin: No rashes or suspicious lesions Procedure The patient was placed in the appropriate position and under sterile conditions, the urethra is catheterized with a 14 Fr straight catheter and the bladder is emptied. 50 cc of sterile 0.9 NS with one vial of RHONDA BCG was placed into the bladder and the straight catheter was removed. The patient will hold the solution in the bladder for two hours, turning every fifteen minutes 1/4 turn to allow coating of the bladder surface. The patient should call the office or present to the Emergency Department for development of fever, chills, or flu-like symptoms. Symptoms such as urinary frequency, urgency, and other bladder irritation symptoms are expected. Assessment/Plan 1. Nocturia (R35.1: Nocturia) pt reports urinary urgency, most bothersome around 5am. goes to bed around 11pm. this isn't enough sleep for him. was taking Myrbetriq but wasn't convinced it was helping so stopped taking it. we talked about other options including anticholinergics. side effects discussed. pt willing to try. -oxybutynin 5mg IR qhs Ordered: E&M of Est. Patient Moderate 30-39 Min 56831 2. Urinary urgency (R39.15: Urgency of urination) also reports he was only able to hold BCG about 1.5 hrs last week. advised him that if oxybutynin effective overnight (see #1), then he can start taking 1 tab po prior to BCG tx in future so he can hold it the entire 2 hrs. 3. Elevated PSA (R97.20: Elevated prostate specific antigen [PSA]) Two neg. bx's in the past. +family history, father from prostate cancer. PSA Nov 2022 - 0.28 Nov 2021 - 1.Aug - 0.Aug - 0.Apr - 1.26 4. Bladder cancer (C67.9: Malignant neoplasm of bladder, unspecified) Cytology atypical urothelial cells, positive FISH 07/16/22. CT 06/2022 negative for suspicious bladder findings. S/p TURBT w/ left stent placement 07/18/22. 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 S/p cysto, L stent removal 08/09/22. [1] Pt completed BCG #27 Oct 2022. S/p cysto 12/10/22 - no classic bt found, but there are red/white areas of uncertainty. S/p cysto, TURBT 01/09/23. Updated path shows bladder mucosa with chronic inflammation, reactive changes and calcifications, no malignancy seen (vs prior path showing high grade, invasive papillary urothelial carcinoma, muscularis propria not id'd). [2] S/p Cysto/TURBT 02/20/23 - Path shows urothelial mucosa with acute inflammation and focal urothelial cytologic atypia, detrusor muscle is present [3] UA today shows trace-intact blood. Denies gross hematuria and UTI sxs. Pt was given BCG #3 f 3 IO today without complications. -return for cysto. Ordered: E&M of Est. Patient Moderate 30-39 Min 54632 Urnls Dip Stick Auto w/o Microscopy POC [id number] Follow-up With When Contact Information [facility] [address] [place] [address] [employer] (1) Additional Instructions: for procedure as scheduled Patient Education Bladder Cancer Problem List/Past Medical History Ongoing Bladder cancer BPH (benign prostatic hyperplasia) Elevated PSA Family history of prostate cancer Impotence Kidney stone Nocturia Proteinuria Split urinary stream Urinary urgency Historical No qualifying data Procedure/Surgical History TURBT - Transurethral resection of bladder tumor (02/20/2023), TURBT - Transurethral resection of bladder tumor (01/09/2023), Cystoscopy (12/10/2022), TURBT - Transurethral resection of bladder tumor (07/18/2022), Arthroplasty of knee (2021), Cystoscopy (10/15/2013), Transrectal biopsy of prostate using ultrasound (US) guidance, Transrectal biopsy of prostate using ultrasound (US) guidance. Medications Myrbetriq 50 mg oral tablet, extended release, 50 mg= 1 tab(s), Oral, Daily, 3 refills, Not taking tadalafil 10 mg Tab, 10 mg= 1 tab(s), Oral, Daily, PRN, 3 refills Allergies No Known Allergies Social History Toba (more content not included)... Normal [facility] Comment on above: Result Comment: Elec tronically Signed By: YAHAIRA LONG PA-C\.cristobal\Date and Time Signed: 05/13/23 09:55 EST Ambulatory Visit Summaryon 0 05-05-2023 Ambulatory Visit Summary HENRIQUE DARIAN Maury :1955 Visit Date:05/05/2023 Ambulatory Visit Instructions Your Diagnosis Bladder cancer Family history of prostate cancer Nocturia Impotence Your Care Team Attending Physician - Tonia DEVRIES MD Primary Care Physician - CATRACHO WILLIS MD This Is Your Medications List Contact prescribing physician if questions or concerns mirabegron (Myrbetriq 50 mg oral tablet, extended release) tadalafil (tadalafil 10 mg Tab) Procedures Performed TURBT - Transurethral resection of bladder tumor (02/20/2023), TURBT - Transurethral resection of bladder tumor (01/09/2023), Cystoscopy (12/10/2022), TURBT - Transurethral resection of bladder tumor (07/18/2022), Arthroplasty of knee (2021), Cystoscopy (10/15/2013), Transrectal biopsy of prostate using ultrasound (US) guidance, Transrectal biopsy of prostate using ultrasound (US) guidance. Discharge Vitals Heart Rate (Peripheral) 67 Respiratory Rate 16 Blood Pressure 129/71 Height 182 cm Height 72 in Weight 84 kg Weight 184.8 lb BMI 25.36 What to do next Scheduled Follow-Up Appointments Friday 9:00 AM EST With: YAHAIRA LONG PA-C Where: [facility] Patient Educationon 05-05-19 Patient Education Oncology Chemotherapy Chemotherapy is a cancer treatment. It uses medicines to slow down or stop the growth of cancer. You may have chemotherapy to: ? Cure your cancer. ? Prevent the cancer from growing or spreading (metastasizing). ? Ease symptoms and improve your quality of life (palliative care). ? Improve the effects of radiation treatment. ? Shrink a tumor before surgery. ? Rid the body of cancer cells that remain after having a tumor surgically removed. The length of chemotherapy treatment depends on many factors, including: ? The type and stage of your cancer. ? How you respond to the chemotherapy. ? Your side effects. What are the risks? Generally, this is a safe treatment. However, problems may occur, including: ? Infection. ? Bleeding. ? Allergic reactions to medicines. You may have side effects from chemotherapy. What side effects you have depend on a variety of factors, including: ? The type of chemotherapy medicine used. ? Your dosage. ? How long the medicine is used for. ? Your overall health. What happens before treatment? ? You will meet with your cancer care team to discuss: ? Your treatment schedule. ? How your chemotherapy medicine will be given. ? Common side effects and how to prevent or treat them, which may include being given medicines. ? You may have blood tests. What happens during treatment? Chemotherapy may be given continuously over time, or it may be given in cycles. Some common ways chemotherapy may be given include: ? As a pill or capsule. ? As a shot (injection). ? As a skin (topical) cream. ? As a special wafer that is put in your body where the cancer is. The wafer contains chemotherapy medicine. ? As an injection into the cerebrospinal fluid (CSF) in the brain or spinal cord (intraventricular or intrathecal chemotherapy). ? As an installation into the intraperitoneal (abdominal) cavity. ? Through a small, thin tube (catheter). There are different kinds of catheters. You might have one that: ? Goes into a vein (intravenous catheter). An IV may be inserted into a vein each time you get a treatment or it can be used over several days. ? Goes into a vein in your neck that leads to a large vein close to your heart (non-tunneled catheter). This catheter has a risk of infection, so it is used for only a short time. ? Goes into a vein near your elbow (PICC line) and passes through into a large vein in your chest or upper arm. This may be used for weeks or months. ? Connects to an implanted device (port) that is inserted under the skin of your chest (port catheter). The port is attached to a catheter that is passed through into a large vein in your chest or upper arm. The port may stay in place for months or years. ? Goes through the skin of your chest and into a large vein close to your heart (tunneled catheter). This catheter may stay in place for months or years. While you are receiving your chemotherapy medicine, your cancer care team may monitor your blood pressure, heart rate, breathing rate, and blood oxygen level (vital signs) and watch for any problems. Some types of chemotherapy medicine are given only one time. Others are given for months, years, or for life. What can I expect after treatment? After chemotherapy, you may have side effects, such as: ? Nausea and vomiting. ? Appetite loss or a change in the way foods taste. ? Constipation or diarrhea. ? Fatigue. ? Increased risk of infections, bruising, or bleeding. ? Hair loss. ? Mouth or throat sores. ? Tingling, pain, or numbness in the hands and feet. ? Dry, sensitive, itchy, or sore skin. ? Memory changes. Follow these instructions at home: General instructions ? If you get chemotherapy through an IV, PICC line, or port, check the site every day for signs of infection. Check for redness, swelling, pain, fluid, or warmth. ? Wash your hands frequently with soap and water. Scrub your hands for at least 20 seconds. If soap and water are not available, use an alcohol based hand agriculture specialist that contains at least 60% alcohol. Have other members of your household wash their hands often. ? Chemotherapy medicines leave the body through urine or stool (feces), but they can also be present in other body fluids including vomit, blood, vaginal fluids, and semen for up to 48 hours after receiving the medication. You must carefully follow some safety precautions to prevent harm to others while you are taking these medicines: ? Wash laundry that comes in contact with your body fluids separately. This includes clothing, sheets, and towels. Machine wash laundry twice in hot water with regular laundry detergent. ? Use a condom during vaginal, anal, and oral sex while you are taking chemotherapy medicines. These medicines can stay active in your body for at least 48 hours after you receive treatment. Ask your health care provider how long y (more content not included)... Normal [facility] Urology Office/Clinic Noteon 05-05-2023 Urology Office/Clinic Note Chief Complaint bladder cancer HPI Staff 67 yo male here for BCG #2 of 3. Previous Dx: bladder cancer, family history of prostate cancer, nocturia, impotence. *Myrbetriq 50mg qd and Tadalafil 10mg prn Dysuria: no Incomplete bladder emptying: no Hematuria: no Frequency: no Urgency: no Nocturia: no Stream: good steady Leaking: no Post void dripping: no Wearing pads/ Depends: no Urge incontinence: no Stress incontinence: no Incontinence without Sensory Awareness: no Abdominal pain: no Flank pain: no Sexual complaints: no History of Present Illness Tests reviewed: reviewed UA I have reviewed the previous health record information and history for this patient from Dr. Devries. I have reviewed and verified the staff HPI to be accurate for this encounter. Review of Systems PHQ Score Initial Depression Screen Score: 0 SCORE ROS - Provider Constitutional: denies weight loss, denies hot flashes. Eyes: denies eye problems. Gastrointestinal: denies nausea, denies vomiting. Cardiovascular: denies chest pain or angina. Integumentary: no dryness Musculoskeletal: denies musculoskeletal symptoms. ENMT: denies otolaryngeal symptoms. Respiratory: no shortness of breath. Heme/Lymph: denies easy bleeding tendency, denies easy bruising tendency. Psychiatric: no confusion, no anxiety. Genitourinary: See HPI. Physical Exam Vitals & Measurements HR: 67(Peripheral) RR: 16 BP: 129/71 HT: 72 in HT: 182 cm WT: 84 kg WT: 184.8 lb BMI: 25.36 General Appearance: alert, no distress, well nourished, well developed male. Genitourinary: normal scrotum, normal testes, normal urethra, normal epididymis, normal vas deferens/spermatic cord. Flank Pain: none. Bladder: nonpalpable. Procedure The patient was placed in the appropriate position and under sterile conditions, the urethra is catheterized with a 14 Fr straight catheter and the bladder is emptied. 30 cc of sterile 0.9 NS with one vial of RHONDA BCG was placed into the bladder and the straight catheter was removed. The patient will hold the solution in the bladder for two hours, turning every fifteen minutes 1/4 turn to allow coating of the bladder surface. The patient should call the office or present to the Emergency Department for development of fever, chills, or flu-like symptoms. Symptoms such as urinary frequency, urgency, and other bladder irritation symptoms are expected. Assessment/Plan 1. Bladder cancer (C67.9: Malignant neoplasm of bladder, unspecified) Cytology atypical urothelial cells, positive FISH 07/16/22. CT 06/2022 negative for suspicious bladder findings. S/p TURBT w/ left stent placement 07/18/22. 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 S/p cysto, L stent removal 08/09/22. [1] Pt completed BCG #6 10/22/22. Has now failed BCG during the first round. S/p cysto 12/10/22 - no classic bt found, but there are red/white areas of uncertainty. S/p cysto, TURBT 01/09/23. Updated path shows bladder mucosa with chronic inflammation, reactive changes and calcifications, no malignancy seen (vs prior path showing high grade, invasive papillary urothelial carcinoma, muscularis propria not id'd). [2] S/p Cysto/TURBT 02/20/23 - Path shows urothelial mucosa with acute inflammation and focal urothelial cytologic atypia, detrusor muscle is present [3] UA today shows trace-intact blood. Denies gross hematuria and UTI sxs. Pt was given BCG #2 of 3 IO today without complications. -BCG #3/3 in 1 wk 2. Family history of prostate cancer (Z80.42: Family history of malignant neoplasm of prostate) PSA: 08/29/20 - 0.96 12/05/21 - 1.32 Two neg. bx's in the past. + family history, father from prostate cancer. [4] 3. Nocturia (R35.1: Nocturia) Taking Myrbetriq 50mg qd. Works well. 4. Impotence (N52.9: Male erectile dysfunction, unspecified) Tadalafil 10mg prn. [5] Follow-up With When Contact Information BARB RAMIREZ, Tonia Vasquez, URL [facility] [address], [place] [address] [phone] Additional Instructions: BCG #3/3 on 05/13/23 Patient Education Chemotherapy I, Lisset Paul, personally scribed for Dr. Devries on 05/05/2023 09:36:49. . Documentation recorded by the scribeLisset, accurately reflects the services(s) I performed and decisions made by me. Authenticated by Dr. Devries on 05/05/2023 09:40:59. Problem List/Past Medical History Ongoing Bladder cancer BPH (benign prostatic hyperplasia) Elevated PSA Family history of prostate cancer Impotence Kidney stone Nocturia Proteinuria Split urinary stream Historical No qualifying data Procedure/Surgical History TURBT - Transurethral resection of bladder tumor (02/20/2023), TURBT - Transurethral resection of bladder tumor (01/09/2023), Cystoscopy (12/10/2022), TURBT - Transurethral resection of bladder tumor (07/18/2022), (more content not included)... Normal [facility] Comment on above: Result Comment: Elec tronically Signed By: Tonia DEVRIES MD\.br\Date and Time Signed: 05/05/23 09:41 EST\.br\Electronically Co-Signed By: Lisset Paul\.br\Date and Time Co-Signed: 05/05/23 09:38 EST Ambulatory Visit Summaryon 0 04-28-2023 Ambulatory Visit Summary DARIAN DUENAS :1955 Visit Date:04/28/2023 Ambulatory Visit Instructions Your Diagnosis Bladder cancer Family history of prostate cancer Nocturia Impotence Your Care Team Attending Physician - Tonia DEVRIES MD Primary Care Physician - CATRACHO WILLIS MD This Is Your Medications List mirabegron (Myrbetriq 50 mg oral tablet, extended release) tadalafil (tadalafil 10 mg Tab) Procedures Performed TURBT - Transurethral resection of bladder tumor (02/20/2023), TURBT - Transurethral resection of bladder tumor (01/09/2023), Cystoscopy (12/10/2022), TURBT - Transurethral resection of bladder tumor (07/18/2022), Arthroplasty of knee (2021), Cystoscopy (10/15/2013), Transrectal biopsy of prostate using ultrasound (US) guidance, Transrectal biopsy of prostate using ultrasound (US) guidance. Discharge Vitals Heart Rate (Peripheral) 68 Respiratory Rate 16 Blood Pressure 127/73 Height 182 cm Height 72 in Weight 84 kg Weight 184.8 lb BMI 25.36 What to do next Scheduled Follow-Up Appointments Friday 8:30 AM EST With: Tonia DEVRIES MD Where: [facility] Normal [address] [place] [address] [place] [address]- \.br\ You Need to Schedule the Following Appointments\.b r\ Follow Up with Tonia DEVRIES MD, URL When: \.br\ Comments:\.br\ f/u scheduled 05/05/23 for BCG #2/3\.br\ Where:\.br\ [facility] [address]br\ [place] [address]-\.br\ [phone]\.br\ Medications\.br \ What How Much When Instructions\.b r\ Unchanged mirabegron (Myrbetriq 50 mg oral tablet, extended release) 1 Tablets By Mouth Every day\.br\ Unchanged tadalafil (tadalafil 10 mg Tab) 1 Tablets By Mouth Every day as needed for for erectile dysfunction Take 1-2 pills by mouth, 1 hour prior to sexual relations. \.br\ Medications and Immunizations Administered\.b r\ Given\.br\ [place] BCG Live (for intravesical use), 50 mg, IntraVesical. For: Bladder cancer\.br\ BCG, IntraVesical\.b r\ Allergies\.br\ No Known Allergies\.br\ Problems\.br\ Ongoing - Any problem that you are currently receiving treatment for.\.br\ Bladder cancer\.br\ BPH (benign prostatic hyperplasia)\.b r\ Elevated PSA\.br\ Family history of prostate cancer\.br\ Impotence\.br\ Kidney stone\.br\ Nocturia\.br\ Proteinuria\.br \ Split urinary stream\.br\ Patient Survey\.br\ You may receive a survey via text or e-mail asking about your office visit. Please share your experience with us by completing your survey. We appreciate your feedback and thank you for choosing us for your care.\.br\ Education Materials\.br\ Chemotherapy\.b r\ Chemotherapy is a cancer treatment. It uses medicines to slow down or stop the growth of cancer. You may have chemotherapy to:\.br\ ? \.br\ Cure your cancer.\.br\ ? \.br\ Prevent the cancer from growing or spreading (metastasizing) .\.br\ ? \.br\ Ease symptoms and improve your quality of life (palliative care).\.br\ ? \.br\ Improve the effects of radiation treatment.\.br\ ? \.br\ Shrink a tumor before surgery.\.br\ ? \.br\ Rid the body of cancer cells that remain after having a tumor surgically removed.\.br\ The length of chemotherapy treatment depends on many factors, including:\.br\ ? \.br\ The type and stage of your cancer.\.br\ ? \.br\ How you respond to the chemotherapy.\. br\ ? \.br\ Your side effects.\.br\ What are the risks?\.br\ Generally, this is a safe treatment. However, problems may occur, including:\.br\ ? \.br\ Infection.\.br\ ? \.br\ Bleeding.\.br\ ? \.br\ Allergic reactions to medicines.\.br\ You may have side effects from chemotherapy. What side effects you have depend on a variety of factors, including:\.br\ ? \.br\ The type of chemotherapy medicine used.\.br\ ? \.br\ Your dosage.\.br\ ? \.br\ How long the medicine is used for.\.br\ ? \.br\ Your overall health.\.br\ What happens before treatment?\.br\ ? \.br\ You will meet with your cancer care team to discuss:\.br\ ? \.br\ Your treatment schedule.\.br\ ? \.br\ How your chemotherapy medicine will be given.\.br\ ? \.br\ Common side effects and how to prevent or treat them, which may include being given medicines.\.br\ ? \.br\ You may have blood tests.\.br\ What happens during treatment?\.br\ \.br\ Chemotherapy may be given continuously over time, or it may be given in cycles. Some common ways chemotherapy may be given include:\.br\ ? \.br\ As a pill or capsule.\.br\ ? \.br\ As a shot (injection).\.b r\ ? \.br\ As a skin (topical) cream.\.br\ ? \.br\ As a special wafer that is put in your body where the cancer is. The wafer contains chemotherapy medicine.\.br\ ? \.br\ As an injection into the cerebrospinal fluid (CSF) in the brain or spinal cord (intraventricul ar or intrathecal chemotherapy).\ .br\ ? \.br\ As an installation into the intraperitoneal (abdominal) cavity.\.br\ ? \.br\ Through a small, thin tube (catheter). There are different kinds of catheters. You might have one that:\.br\ ? \.br\ Goes into a vein (intravenous catheter). An IV may be inserted into a vein each time you get a treatment or it can be used over several days.\.br\ ? \.br\ Goes into a vein in your neck that leads to a large vein close to your heart (non-tunneled catheter). This catheter has a risk of infection, so it is used for only a short time.\.br\ ? \.br\ Goes into a vein near your elbow (PICC line) and passes through into a large vein in your chest or upper arm. This may be used for weeks or months.\.br\ ? \.br\ Connects to an implanted device (port) that is inserted under the skin of your chest (port catheter). The port is attached to a catheter that is passed through into a large vein in your chest or upper arm. The port may stay in place for months or years.\.br\ ? \.br\ Goes through the skin of your chest and into a large vein close to your heart (tunneled catheter). This catheter may stay in place for months or years.\.br\ While you are receiving your chemotherapy medicine, your cancer care team may monitor your blood pressure, heart rate, breathing rate, and blood oxygen level (vital signs) and watch for any problems.\.br\ Some types of chemotherapy medicine are given only one time. Others are given for months, years, or for life.\.br\ What can I expect after treatment?\.br\ After chemotherapy, you may have side effects, such as:\.br\ ? \.br\ Nausea and vomiting.\.br\ ? \.br\ Appetite loss or a change in the way foods taste.\.br\ ? \.br\ Constipation or diarrhea.\.br\ ? \.br\ Fatigue.\.br\ ? \.br\ Increased risk of infections, bruising, or bleeding.\.br\ ? \.br\ Hair loss.\.br\ ? \.br\ Mouth or throat sores.\.br\ ? \.br\ Tingling, pain, or numbness in the hands and feet.\.br\ ? \.br\ Dry, sensitive, itchy, or sore skin.\.br\ ? \.br\ Memory changes.\.br\ Follow these instructions at home:\.br\ General instructions\.b r\ \.br\ ? \.br\ If you get chemotherapy through an IV, PICC line, or port, check the site every day for signs of infection. Check for redness, swelling, pain, fluid, or warmth.\.br\ ? \.br\ Wash your hands frequently with soap and water. Scrub your hands for at least 20 seconds. If soap and water are not available, use an alcohol based hand agriculture specialist that contains at least 60% alcohol. Have other members of your household wash their hands often.\.br\ ? \.br\ Chemotherapy medicines leave the body through urine or stool (feces), but they can also be present in other body fluids including vomit, blood, vaginal fluids, and semen for up to 48 hours after receiving the medication. You must carefully follow some safety precautions to prevent harm to others while you are taking these medicines:\.br\ ? \.br\ Wash laundry that comes in contact with your body fluids separately. This includes clothing, sheets, and towels. Machine wash laundry twice in hot water with regular laundry detergent.\.br\ ? \.br\ Use a condom during vaginal, anal, and oral sex while you are taking chemotherapy medicines. These medicines can stay active in your body for at least 48 hours after you receive treatment. Ask your health care provider how long you should take precautions.\.b r\ ? \.br\ Practice good bathroom hygiene:\.br\ ? \.br\ If possible, use a toilet separate from others in the household.\.br\ ? \.br\ Always sit when using the toilet. Close the toilet seat lid before you flush.\.br\ ? \.br\ Wash your hands lindy [facility] Patient Educationon 04-28-19 Patient Education Oncology Chemotherapy Chemotherapy is a cancer treatment. It uses medicines to slow down or stop the growth of cancer. You may have chemotherapy to: ? Cure your cancer. ? Prevent the cancer from growing or spreading (metastasizing). ? Ease symptoms and improve your quality of life (palliative care). ? Improve the effects of radiation treatment. ? Shrink a tumor before surgery. ? Rid the body of cancer cells that remain after having a tumor surgically removed. The length of chemotherapy treatment depends on many factors, including: ? The type and stage of your cancer. ? How you respond to the chemotherapy. ? Your side effects. What are the risks? Generally, this is a safe treatment. However, problems may occur, including: ? Infection. ? Bleeding. ? Allergic reactions to medicines. You may have side effects from chemotherapy. What side effects you have depend on a variety of factors, including: ? The type of chemotherapy medicine used. ? Your dosage. ? How long the medicine is used for. ? Your overall health. What happens before treatment? ? You will meet with your cancer care team to discuss: ? Your treatment schedule. ? How your chemotherapy medicine will be given. ? Common side effects and how to prevent or treat them, which may include being given medicines. ? You may have blood tests. What happens during treatment? Chemotherapy may be given continuously over time, or it may be given in cycles. Some common ways chemotherapy may be given include: ? As a pill or capsule. ? As a shot (injection). ? As a skin (topical) cream. ? As a special wafer that is put in your body where the cancer is. The wafer contains chemotherapy medicine. ? As an injection into the cerebrospinal fluid (CSF) in the brain or spinal cord (intraventricular or intrathecal chemotherapy). ? As an installation into the intraperitoneal (abdominal) cavity. ? Through a small, thin tube (catheter). There are different kinds of catheters. You might have one that: ? Goes into a vein (intravenous catheter). An IV may be inserted into a vein each time you get a treatment or it can be used over several days. ? Goes into a vein in your neck that leads to a large vein close to your heart (non-tunneled catheter). This catheter has a risk of infection, so it is used for only a short time. ? Goes into a vein near your elbow (PICC line) and passes through into a large vein in your chest or upper arm. This may be used for weeks or months. ? Connects to an implanted device (port) that is inserted under the skin of your chest (port catheter). The port is attached to a catheter that is passed through into a large vein in your chest or upper arm. The port may stay in place for months or years. ? Goes through the skin of your chest and into a large vein close to your heart (tunneled catheter). This catheter may stay in place for months or years. While you are receiving your chemotherapy medicine, your cancer care team may monitor your blood pressure, heart rate, breathing rate, and blood oxygen level (vital signs) and watch for any problems. Some types of chemotherapy medicine are given only one time. Others are given for months, years, or for life. What can I expect after treatment? After chemotherapy, you may have side effects, such as: ? Nausea and vomiting. ? Appetite loss or a change in the way foods taste. ? Constipation or diarrhea. ? Fatigue. ? Increased risk of infections, bruising, or bleeding. ? Hair loss. ? Mouth or throat sores. ? Tingling, pain, or numbness in the hands and feet. ? Dry, sensitive, itchy, or sore skin. ? Memory changes. Follow these instructions at home: General instructions ? If you get chemotherapy through an IV, PICC line, or port, check the site every day for signs of infection. Check for redness, swelling, pain, fluid, or warmth. ? Wash your hands frequently with soap and water. Scrub your hands for at least 20 seconds. If soap and water are not available, use an alcohol based hand agriculture specialist that contains at least 60% alcohol. Have other members of your household wash their hands often. ? Chemotherapy medicines leave the body through urine or stool (feces), but they can also be present in other body fluids including vomit, blood, vaginal fluids, and semen for up to 48 hours after receiving the medication. You must carefully follow some safety precautions to prevent harm to others while you are taking these medicines: ? Wash laundry that comes in contact with your body fluids separately. This includes clothing, sheets, and towels. Machine wash laundry twice in hot water with regular laundry detergent. ? Use a condom during vaginal, anal, and oral sex while you are taking chemotherapy medicines. These medicines can stay active in your body for at least 48 hours after you receive treatment. Ask your health care provider how long y (more content not included)... Normal [facility] Urology Office/Clinic Noteon 04-28-2023 Urology Office/Clinic Note Chief Complaint BCG 1 of 3 HPI Staff Pt is here for BCG #1 of 3 and to discuss pathology from TURBT. Previous dx of bladder cancer, elevated PSA, nocturia and split urinary stream. Myrbetriq 50mg QD and Tadalafil 10mg PRN. Dysuria: no Incomplete bladder emptying: no Hematuria: no Frequency: no Urgency: yes Nocturia: not getting up Stream: good steady Leaking: no Post void dripping: no Wearing pads/ Depends: no Urge incontinence: no Stress incontinence: no Incontinence without Sensory Awareness: no Abdominal pain: no Flank pain: no Sexual complaints: no History of Present Illness Tests reviewed: reviewed UA, updated path report I have reviewed the previous health record information and history for this patient from Dr. Devries. I have reviewed and verified the staff HPI to be accurate for this encounter. Review of Systems PHQ Score Initial Depression Screen Score: 0 SCORE ROS - Provider Constitutional: denies weight loss, denies hot flashes. Eyes: denies eye problems. Gastrointestinal: denies nausea, denies vomiting. Cardiovascular: denies chest pain or angina. Integumentary: no dryness Musculoskeletal: denies musculoskeletal symptoms. ENMT: denies otolaryngeal symptoms. Respiratory: no shortness of breath. Heme/Lymph: denies easy bleeding tendency, denies easy bruising tendency. Psychiatric: no confusion, no anxiety. Genitourinary: See HPI. Physical Exam Vitals & Measurements HR: 68(Peripheral) RR: 16 BP: 127/73 HT: 72 in HT: 182 cm WT: 84 kg WT: 184.8 lb BMI: 25.36 General Appearance: alert, no distress, well nourished, well developed male. Genitourinary: normal scrotum, normal testes, normal urethra, normal epididymis, normal vas deferens/spermatic cord. Flank Pain: none. Bladder: nonpalpable. Procedure The patient was placed in the appropriate position and under sterile conditions, the urethra is catheterized with a 14 Fr straight catheter and the bladder is emptied. 30 cc of sterile 0.9 NS with one vial of RHONDA BCG was placed into the bladder and the straight catheter was removed. The patient will hold the solution in the bladder for two hours, turning every fifteen minutes 1/4 turn to allow coating of the bladder surface. The patient should call the office or present to the Emergency Department for development of fever, chills, or flu-like symptoms. Symptoms such as urinary frequency, urgency, and other bladder irritation symptoms are expected. Assessment/Plan 1. Bladder cancer (C67.9: Malignant neoplasm of bladder, unspecified) Cytology atypical urothelial cells, positive FISH 07/16/22. CT 06/2022 negative for suspicious bladder findings. S/p TURBT w/ left stent placement 07/18/22. 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 S/p cysto, L stent removal 08/09/22. [1] Pt completed BCG #6 10/22/22. Has now failed BCG during the first round. S/p cysto 12/10/22 - no classic bt found, but there are red/white areas of uncertainty. S/p cysto, TURBT 01/09/23. Updated path shows bladder mucosa with chronic inflammation, reactive changes and calcifications, no malignancy seen (vs prior path showing high grade, invasive papillary urothelial carcinoma, muscularis propria not id'd). S/p Cysto/TURBT 02/20/23 - Path shows urothelial mucosa with acute inflammation and focal urothelial cytologic atypia, detrusor muscle is present UA today shows trace-intact blood. Denies gross hematuria and UTI sxs. Pt was given BCG #1 of 3 IO today without complications. -BCG #2/3 in 1 wk 2. Family history of prostate cancer (Z80.42: Family history of malignant neoplasm of prostate) PSA: 08/29/20 - 0.96 12/05/21 - 1.32 Two neg. bx's in the past. + family history, father from prostate cancer. [2] 3. Nocturia (R35.1: Nocturia) Taking Myrbetriq 50mg qd. Denies getting up at night to void. 4. Impotence (N52.9: Male erectile dysfunction, unspecified) Tadalafil 10mg prn. Follow-up With When Contact Information BARB RAMIREZ, Tonia Vasquez, URL [facility] [address], [place] [address]- [phone] Additional Instructions: f/u scheduled 05/05/23 for BCG #2/3 Patient Education Chemotherapy I, Lisset Paul, personally scribed for Dr. Devries on 04/28/2023 09:16:46. . Documentation recorded by the Lisset francisco, accurately reflects the services(s) I performed and decisions made by me. Authenticated by Dr. Devries on 04/28/2023 09:24:43. Problem List/Past Medical History Ongoing Bladder cancer BPH (benign prostatic hyperplasia) Elevated PSA Family history of prostate cancer Impotence Kidney stone Nocturia Proteinuria Split urinary stream Historical No qualifying data Procedure/Surgical History TURBT - Transurethral resection of bladder tumor (02/20/2023), TURBT - Transurethral resection of bladder tumor (01/09/2023), Cystoscopy ( (more content not included)... Normal [facility] Comment on above: Result Comment: Elec tronically Signed By: Tonia DEVRIES MD\.br\Date and Time Signed: 04/28/23 09:24 EST\.br\Electronically Co-Signed By: Lisset Paul.br\Date and Time Co-Signed: 04/28/23 09:19 EST Ambulatory Visit Summaryon 0 04-10-2023 Ambulatory Visit Summary DARIAN DUENAS :1955 Visit Date:03/03/2023 Ambulatory Visit Instructions Your Diagnosis Bladder cancer Elevated PSA Nocturia Split urinary stream Your Care Team Attending Physician - BARB RAMIREZ, Tonia Vasquez Primary Care Physician - CATRACHO WILLIS MD This Is Your Medications List mirabegron (Myrbetriq 50 mg oral tablet, extended release) tadalafil (tadalafil 10 mg Tab) Procedures Performed TURBT - Transurethral resection of bladder tumor (02/20/2023), TURBT - Transurethral resection of bladder tumor (01/09/2023), Cystoscopy (12/10/2022), TURBT - Transurethral resection of bladder tumor (07/18/2022), Arthroplasty of knee (2021), Cystoscopy (10/15/2013), Transrectal biopsy of prostate using ultrasound (US) guidance, Transrectal biopsy of prostate using ultrasound (US) guidance. Discharge Vitals Heart Rate (Peripheral) 80 Respiratory Rate 16 Blood Pressure 126/79 Height 182 cm Height 72 in Weight 84 kg Weight 184.8 lb BMI 25.36 What to do next You Need to Schedule the Following Appointments Follow Up with BARB RAMIREZ, ADAM Aranda When: Comments: After BCG treatments. Where: [facility] [address] [place] [address]- Medications What How Much When Instructions Unchanged mirabegron (Myrbetriq 50 mg oral tablet, extended release) 1 Tablets By Mouth Every day Unchanged tadalafil (tadalafil 10 mg Tab) 1 Tablets By Mouth Every day as needed for for erectile dysfunction Take 1-2 pills by mouth, 1 hour prior to sexual relations. Allergies No Known Allergies Problems Ongoing - Any problem that you are currently receiving treatment for. Bladder cancer BPH (benign prostatic hyperplasia) Elevated PSA Family history of prostate cancer Impotence Kidney stone Nocturia Proteinuria Split urinary stream Patient Survey You may receive a survey via text or e-mail asking about your office visit. Please share your experience with us by completing your survey. We appreciate your feedback and thank you for choosing us for your care. Education Materials Bladder Cancer Bladder cancer is a condition where abnormal tissue (a tumor) grows in the bladder. The bladder is the organ that holds urine. Two tubes (ureters) carry urine from the kidneys to the bladder. The bladder wall is made of layers of tissue. Cancer that spreads through these layers of the bladder wall becomes more difficult to treat. What increases the risk? The following factors may make you more likely to develop this condition: ? Smoking. ? Working where there are risks (occupational exposures), such as working with rubber, leather, clothing fabric, dyes, chemicals, or paint. ? Being 55 years of age or older. ? Being male. ? Having long-term bladder inflammation. ? Having a history of cancer. This includes: ? A family history of bladder cancer. ? Having had bladder cancer before. ? Having had certain treatments for cancer before, such as: ? Medicines to kill cancer cells (chemotherapy). ? Strong X-ray beams or high-energy capsules to kill cancer cells and shrink tumors (radiation therapy). ? Having been exposed to arsenic. This is a poisonous substance. What are the signs or symptoms? Early symptoms of this condition include: ? Blood in your urine. ? Pain when urinating. ? Infections of your urinary system (urinary tract infections or UTIs) that happen often. ? Having to urinate sooner or more often than normal. Late symptoms of this condition include: ? Not being able to urinate. ? Pain on one side of your lower back. ? Loss of appetite. ? Weight loss. ? Tiredness (fatigue). ? Swelling in your feet. ? Bone pain. How is this diagnosed? This condition is diagnosed based on: ? Your medical history. ? A physical exam. ? Lab tests, such as urine tests. ? Imaging tests. ? Your symptoms. You may also have other tests or procedures, such as: ? A cystoscopy. This involves putting a narrow tube into your urethra. The urethra is the organ that carries urine from your bladder to the outside of your body. This procedure is done to view the lining of your bladder for tumors. ? A biopsy. This involves removing a tissue sample to look at under a microscope to check for cancer. Blood tests or imaging tests may be needed. These show how far into the bladder wall cancer has grown, and if cancer has spread to any other parts of your body. Tests may include: ? CT scan. ? MRI. ? Bone scan. ? X-ray. How is this treated? Your health care provider may recommend one or more types of treatment based on the stage of your cancer. The most common treatments are: ? Surgery to remove the cancer. Types of surgeries include: ? Removing a tumor on the inside wall of the bladder (transurethral resection). ? Removing the bladder (cystect (more content not included)... Normal [facility] Pathology Noteon 03-31-2023 Pathology Note [id number] #1.00TIFF Normal [facility] COVID + FLU Quick Testingon 03-28-2023 SARS-CoV-2 (COVID-19) RNA VIC+probe Ql (Unsp spec) Positive Grow Other COVID + FLU Quick Testing Negative Grow Other Lab Reportson 03-18-2023 Lab Reports [id number] #1.00TIFF Normal [facility] Pathology Noteon 03-18-2023 Pathology Note [id number] #1.00TIFF [facility] C Urineon 03-12-2023 Bacteria identified Cx Nom (U) Microbiology PROCEDURE: Urine Culture [R1] SOURCE: U CleanCatch BODY SITE: COLLECTED DATE/TIME: 03/10/2023 12:10 EST RECEIVED DATE/TIME: 03/10/2023 19:04 EST START DATE/TIME: 03/10/2023 19:04 EST FREE TEXT SOURCE: BARB RAMIREZ, Tonia DEVRIES MD, Tonia Vasquez FINAL REPORTS Final Report [] Verified Date/Time: 03/12/2023 09:08 EST No growth at 2 days. Performing Locations R1: This test was performed at: [facility], [address] [place] [address], [facility]- , , [facility] Comment on above: Performed By: #### 2 [id number] #### [facility] [address] [place] [address] Coding Queryon 03-10-2023 Coding Query - From: Cortney Taylor M.A. To: [facility] - Pending Results; Sent: 03/10/2023 12:12:51 EST Subject: C&S Due Date/Time: 03/12/2023 12:12:00 EST Caller Name: DARIAN DUENAS; Caller Number: Carmen , C&S sent to [facility] duplicate [facility] Pathology Noteon 03-04-2023 Pathology Note [id number] #1.00TIFF [facility] Patient Educationon 03-03-20 23 Patient Education Oncology Bladder Cancer Bladder cancer is a condition where abnormal tissue (a tumor) grows in the bladder. The bladder is the organ that holds urine. Two tubes (ureters) carry urine from the kidneys to the bladder. The bladder wall is made of layers of tissue. Cancer that spreads through these layers of the bladder wall becomes more difficult to treat. What increases the risk? The following factors may make you more likely to develop this condition: ? Smoking. ? Working where there are risks (occupational exposures), such as working with rubber, leather, clothing fabric, dyes, chemicals, or paint. ? Being 55 years of age or older. ? Being male. ? Having long-term bladder inflammation. ? Having a history of cancer. This includes: ? A family history of bladder cancer. ? Having had bladder cancer before. ? Having had certain treatments for cancer before, such as: ? Medicines to kill cancer cells (chemotherapy). ? Strong X-ray beams or high-energy capsules to kill cancer cells and shrink tumors (radiation therapy). ? Having been exposed to arsenic. This is a poisonous substance. What are the signs or symptoms? Early symptoms of this condition include: ? Blood in your urine. ? Pain when urinating. ? Infections of your urinary system (urinary tract infections or UTIs) that happen often. ? Having to urinate sooner or more often than normal. Late symptoms of this condition include: ? Not being able to urinate. ? Pain on one side of your lower back. ? Loss of appetite. ? Weight loss. ? Tiredness (fatigue). ? Swelling in your feet. ? Bone pain. How is this diagnosed? This condition is diagnosed based on: ? Your medical history. ? A physical exam. ? Lab tests, such as urine tests. ? Imaging tests. ? Your symptoms. You may also have other tests or procedures, such as: ? A cystoscopy. This involves putting a narrow tube into your urethra. The urethra is the organ that carries urine from your bladder to the outside of your body. This procedure is done to view the lining of your bladder for tumors. ? A biopsy. This involves removing a tissue sample to look at under a microscope to check for cancer. Blood tests or imaging tests may be needed. These show how far into the bladder wall cancer has grown, and if cancer has spread to any other parts of your body. Tests may include: ? CT scan. ? MRI. ? Bone scan. ? X-ray. How is this treated? Your health care provider may recommend one or more types of treatment based on the stage of your cancer. The most common treatments are: ? Surgery to remove the cancer. Types of surgeries include: ? Removing a tumor on the inside wall of the bladder (transurethral resection). ? Removing the bladder (cystectomy). ? Radiation therapy. This is often combined with chemotherapy. ? Chemotherapy. ? Immunotherapy. This uses medicines to help your body's disease-fighting system (immune system) destroy cancer cells. Follow these instructions at home: ? Take atei-qrx-ireextx and prescription medicines only as told by your health care provider. ? If you were prescribed an antibiotic medicine, take it as told by your health care provider. Do not stop using the antibiotic even if you start to feel better. ? Eat a healthy diet. Some treatments might affect your appetite. ? Do not use any products that contain nicotine or tobacco. These products include cigarettes, chewing tobacco, and vaping devices, such as e-cigarettes. If you need help quitting, ask your health care provider. ? Consider joining a support group. This may help you learn to deal with the stress of having bladder cancer. ? Tell your cancer care team if you develop side effects. Your team may be able to recommend ways to get relief. ? Keep all follow-up visits. This is important. Where to find more information ? [place] [employer] (ACS): cancer.org ? National [employer] [place] (NCI): cancer.gov Contact a health care provider if: ? You have symptoms of a UTI. These include: ? Fever. ? Chills. ? Weakness. ? Muscle aches. ? Pain in your abdomen. ? Urge to urinate that is stronger and happens more often than normal. ? Burning in the bladder or urethra when you urinate. Get help right away if: ? There is blood in your urine. ? You cannot urinate. ? You have severe pain or other symptoms that do not go away. Summary ? Bladder cancer is a condition where tumors grow in the bladder. ? Diagnosis is based on your medical history, a physical exam, lab tests, imaging tests, and your symptoms. ? Your health care provider may recommend one or more types of treatment based on the stage of your cancer. ? Consider joining a support group. This may help you learn to deal with the stress of having bladder cancer. This information is not intended to replace advice given to you by your health care provider. Make sure you discuss any questions you have wi (more content not included)... Normal [facility] Urology Office/Clinic Noteon 03-03-2023 Urology Office/Clinic Note Chief Complaint S/P Re TURBT HPI Staff S/P Repeat TURBT done 02/20/23. Initial TURBT 01/09/23. Questionable muscle invasion on initial path report, plan was to get second opinion on path from [facility]. Not completed yet. *Tadalafil increased to 20mg per EMR message 02/17/23. Also taking Myrbetriq 50mg qd therapy. BCG #6 to begin in March 2023. Post Op cath removed in our office 02/26/23. Mild intermittent tingling sensation at urethra since the procedure. Denies visible blood in urine Intermittent spraying stream since procedure. Is continuing to improve. History of Present Illness Tests reviewed: reviewed Path Report. I have reviewed the previous health record information and history for this patient from . I have reviewed and verified the staff HPI to be accurate for this encounter. There have been no associated fever, chills, flank pain, or blood in the urine. Denies any urinary infections since last encounter. Review of Systems PHQ Score Initial Depression Screen Score: 0 SCORE ROS - Provider Constitutional: denies weight loss, denies hot flashes. Eyes: denies eye problems. Gastrointestinal: denies nausea, denies vomiting. Cardiovascular: denies chest pain or angina. Integumentary: no dryness Musculoskeletal: denies musculoskeletal symptoms. ENMT: denies otolaryngeal symptoms. Respiratory: no shortness of breath. Heme/Lymph: denies easy bleeding tendency, denies easy bruising tendency. Psychiatric: no confusion, no anxiety. Genitourinary: See HPI. Physical Exam Vitals & Measurements HR: 80(Peripheral) RR: 16 BP: 126/79 HT: 72 in HT: 182 cm WT: 84 kg WT: 184.8 lb BMI: 25.36 General Appearance: alert, no distress, well nourished, well developed male. Assessment/Plan 1. Bladder cancer (C67.9: Malignant neoplasm of bladder, unspecified) Cytology atypical urothelial cells, positive FISH 07/16/22. CT 06/2022 negative for suspicious bladder findings. S/p TURBT w/ left stent placement 07/18/22. 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 S/p cysto, L stent removal 08/09/22. Pt completed BCG #6 10/22/22. Has now failed BCG during the first round. S/p cysto 12/10/22 - no classic bt found, but there are red/white areas of uncertainty. S/p cysto, TURBT 01/09/23. 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 Muscularis propria not identified in the specimen. Results discussed w/ pt. S/p Cysto/TURBT 02/20/23 - Path shows urothelial mucosa with acute inflammation and focal urothelial cytologic atypia, detrusor muscle is present Discussed path results with pt, no signs of urothelial carcinoma in the repeat TURBT, has not invaded the muscle. Advised pt that he will need to do 6 more treatments of BCG. Advised pt that most pt's who fail BCG the first time, do not fail it the second time, and if he fails the second round of BCG we will need to switch treatments. Advised pt that there is a national shortage of BCG and we will need to refer him out for the BCG treatments. Follow up in after BCG treatments. All questions/concerns were discussed. Pt to call the office if he encounters any issues prior. Pt acknowledges understanding. -Will refer pt out for 6 doses of BCG treatments. 2. Elevated PSA (R97.20: Elevated prostate specific antigen [PSA]) PSA: 08/29/20 - 0.96 12/05/21 - 1.32 Two neg. bx's in the past. + family history, father from prostate cancer. 3. Nocturia (R35.1: Nocturia) Continues Myrbetriq 50mg qd. 4. Split urinary stream (R39.13: Splitting of urinary stream) Pt states that his stream is not normal since his TURBT. Advised pt that this sxs should resolve after a month PO TURBT. Follow-up With When Contact Information BARB RAMIREZ, Tonia Vasquez, URL [facility] [address], [place] [address]- Additional Instructions: After BCG treatments. Patient Education Bladder Cancer I, Adrienne Mojica , personally scribed for Dr. Devries on 03/03/2023 10:10:32. . Documentation recorded by the scribe, Adrienne Mojica, accurately reflects the services(s) I performed and decisions made by me. Problem List/Past Medical History Ongoing Bladder cancer BPH (benign prostatic hyperplasia) Elevated PSA Family history of prostate cancer Impotence Kidney stone Nocturia Proteinuria Split urinary stream Historical No qualifying data Procedure/Surgical History TURBT - Transurethral resection of bladder tumor (02/20/2023), TURBT - Transurethral resection of bladder tumor (01/09/2023), Cystoscopy (12/10/2022), TURBT - Transurethral resection of bladder tumor (07/18/2022), Arthroplasty of knee (2021), Cystoscopy (10/15/2013), Transrectal biopsy of prostate using ultrasound (US) guidance, Transrectal biopsy of prostate using ultrasound (US) guidance. Medications Myrbetriq 50 mg oral tablet, extended releas (more content not included)... Normal [facility] Comment on above: Result Comment: Elec tronically Signed By: BARB RAMIREZ, Tonia Vasquez\.br\Date and Time Signed: 03/03/23 10:12 EST\.br\Electronically Co-Signed By: Adrienne Mojica.br\Date and Time Co-Signed: 03/03/23 10:10 EST Operative Reporton Operative Report [id number] #1.00TIFF [facility] Lab Reportson 02-17-2023 Lab Reports [id number] #1.00TIFF [facility] Lab Reports [id number]# 1.00TIFF [facility] Insurance Correspondenceon 1 03-31-2022 Insurance Correspondence [id number] #1.00TIFF [facility] Consent for Procedure/Surger yon 01-21-2023 Consent for Procedure/Surgery [id number] #1.00TIFF [facility] Formson 01-21-2023 Forms [id number] #1.00TIFF [facility] Ambulatory Visit Summaryon 1 Ambulatory Visit Summary DARIAN DUENAS :1955 Visit Date:01/17/2023 Ambulatory Visit Instructions Your Diagnosis Bladder cancer Elevated PSA Nocturia Your Care Team Attending Physician - BARB RAMIREZ, Tonia Vasquez Primary Care Physician - CATRACHO WILLIS MD This Is Your Medications List mirabegron (Myrbetriq 50 mg oral tablet, extended release) Procedures Performed TURBT - Transurethral resection of bladder tumor (01/09/2023), Cystoscopy (12/10/2022), TURBT - Transurethral resection of bladder tumor (07/18/2022), Arthroplasty of knee (2021), Cystoscopy (10/15/2013), Transrectal biopsy of prostate using ultrasound (US) guidance, Transrectal biopsy of prostate using ultrasound (US) guidance. Discharge Vitals Heart Rate (Peripheral) 62 Respiratory Rate 16 Blood Pressure 121/66 Height 182 cm Height 72 in Weight 84 kg Weight 184.8 lb BMI 25.36 What to do next Scheduled Follow-Up Appointments Friday 9:00 AM EST With: BARB RAMIREZ, Tonia Vasquez Where: [facility] Pathology Noteon 01-17-2023 Pathology Note [id number] #1.00TIFF [facility] Patient Educationon 01-18-20 Patient Education Oncology Bladder Cancer Bladder cancer is a condition where abnormal tissue (a tumor) grows in the bladder. The bladder is the organ that holds urine. Two tubes (ureters) carry urine from the kidneys to the bladder. The bladder wall is made of layers of tissue. Cancer that spreads through these layers of the bladder wall becomes more difficult to treat. What increases the risk? The following factors may make you more likely to develop this condition: ? Smoking. ? Working where there are risks (occupational exposures), such as working with rubber, leather, clothing fabric, dyes, chemicals, or paint. ? Being 55 years of age or older. ? Being male. ? Having long-term bladder inflammation. ? Having a history of cancer. This includes: ? A family history of bladder cancer. ? Having had bladder cancer before. ? Having had certain treatments for cancer before, such as: ? Medicines to kill cancer cells (chemotherapy). ? Strong X-ray beams or high-energy capsules to kill cancer cells and shrink tumors (radiation therapy). ? Having been exposed to arsenic. This is a poisonous substance. What are the signs or symptoms? Early symptoms of this condition include: ? Blood in your urine. ? Pain when urinating. ? Infections of your urinary system (urinary tract infections or UTIs) that happen often. ? Having to urinate sooner or more often than normal. Late symptoms of this condition include: ? Not being able to urinate. ? Pain on one side of your lower back. ? Loss of appetite. ? Weight loss. ? Tiredness (fatigue). ? Swelling in your feet. ? Bone pain. How is this diagnosed? This condition is diagnosed based on: ? Your medical history. ? A physical exam. ? Lab tests, such as urine tests. ? Imaging tests. ? Your symptoms. You may also have other tests or procedures, such as: ? A cystoscopy. This involves putting a narrow tube into your urethra. The urethra is the organ that carries urine from your bladder to the outside of your body. This procedure is done to view the lining of your bladder for tumors. ? A biopsy. This involves removing a tissue sample to look at under a microscope to check for cancer. Blood tests or imaging tests may be needed. These show how far into the bladder wall cancer has grown, and if cancer has spread to any other parts of your body. Tests may include: ? CT scan. ? MRI. ? Bone scan. ? X-ray. How is this treated? Your health care provider may recommend one or more types of treatment based on the stage of your cancer. The most common treatments are: ? Surgery to remove the cancer. Types of surgeries include: ? Removing a tumor on the inside wall of the bladder (transurethral resection). ? Removing the bladder (cystectomy). ? Radiation therapy. This is often combined with chemotherapy. ? Chemotherapy. ? Immunotherapy. This uses medicines to help your body's disease-fighting system (immune system) destroy cancer cells. Follow these instructions at home: ? Take sukq-kwy-wfpdjcz and prescription medicines only as told by your health care provider. ? If you were prescribed an antibiotic medicine, take it as told by your health care provider. Do not stop using the antibiotic even if you start to feel better. ? Eat a healthy diet. Some treatments might affect your appetite. ? Do not use any products that contain nicotine or tobacco. These products include cigarettes, chewing tobacco, and vaping devices, such as e-cigarettes. If you need help quitting, ask your health care provider. ? Consider joining a support group. This may help you learn to deal with the stress of having bladder cancer. ? Tell your cancer care team if you develop side effects. Your team may be able to recommend ways to get relief. ? Keep all follow-up visits. This is important. Where to find more information ? [place] [employer] (ACS): cancer.org ? National Cancer [place] (NCI): cancer.gov Contact a health care provider if: ? You have symptoms of a UTI. These include: ? Fever. ? Chills. ? Weakness. ? Muscle aches. ? Pain in your abdomen. ? Urge to urinate that is stronger and happens more often than normal. ? Burning in the bladder or urethra when you urinate. Get help right away if: ? There is blood in your urine. ? You cannot urinate. ? You have severe pain or other symptoms that do not go away. Summary ? Bladder cancer is a condition where tumors grow in the bladder. ? Diagnosis is based on your medical history, a physical exam, lab tests, imaging tests, and your symptoms. ? Your health care provider may recommend one or more types of treatment based on the stage of your cancer. ? Consider joining a support group. This may help you learn to deal with the stress of having bladder cancer. This information is not intended to replace advice given to you by your health care provider. Make sure you discuss any questions you have wi (more content not included)... Normal [facility] Urology Office/Clinic Noteon 01-17-2023 Urology Office/Clinic Note Chief Complaint bladder cancer HPI Staff F/u to TURBT to review pathology. Previous dx of bladder cancer. Pt continues taking Myrbetriq 50mg QD. Dysuria: no Incomplete bladder emptying: no Hematuria: no Frequency: a little more than before the procedure Urgency: no Nocturia: 1x Stream: no straining or intermittency Leaking: no Post void dripping: no Wearing pads/ Depends:no Urge incontinence: no Stress incontinence: no Incontinence without Sensory Awareness: no Abdominal pain: no Flank pain: no Sexual complaints: no History of Present Illness Tests reviewed: Reviewed path report. I have reviewed the previous health record information and history for this patient from Dr. Devries. I have reviewed and verified the staff HPI to be accurate for this encounter. There have been no associated fever, chills, flank pain, or blood in the urine. Denies any urinary infections since last encounter. Review of Systems PHQ Score Initial Depression Screen Score: 0 ROS - Provider Constitutional: denies weight loss, denies hot flashes. Eyes: denies eye problems. Gastrointestinal: denies nausea, denies vomiting. Cardiovascular: denies chest pain or angina. Integumentary: no dryness Musculoskeletal: denies musculoskeletal symptoms. ENMT: denies otolaryngeal symptoms. Respiratory: no shortness of breath. Heme/Lymph: denies easy bleeding tendency, denies easy bruising tendency. Psychiatric: no confusion, no anxiety. Genitourinary: See HPI. Physical Exam Vitals & Measurements HR: 62(Peripheral) RR: 16 BP: 121/66 HT: 72 in HT: 182 cm WT: 84 kg WT: 184.8 lb BMI: 25.36 General Appearance: alert, no distress, well nourished, well developed male. Genitourinary: normal scrotum, normal testes, normal urethra, normal epididymis, normal vas deferens/spermatic cord. Flank Pain: none. Bladder: nonpalpable. Assessment/Plan 1. Bladder cancer (C67.9: Malignant neoplasm of bladder, unspecified) Cytology atypical urothelial cells, positive FISH 07/16/22. CT 06/2022 negative for suspicious bladder findings. S/p TURBT w/ left stent placement 07/18/22. 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 S/p cysto, L stent removal 08/09/22. Pt completed BCG #6 10/22/22. Has now failed BCG. S/p cysto 12/10/22 - no classic bt found, but there are red/white areas of uncertainty. S/p cysto, TURBT 01/09/23. 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 Muscularis propria not identified in the specimen. Results discussed w/ pt. Discussed w/ pt that confirmation is needed if muscle invasion is present or not. Pt may need to be scheduled for repeat TURBT. Informed pt that if muscle invasion is present pt will need cystectomy. Possible referral in the future to [facility] to discuss more invasive tx options. -Office is calling pathology regarding muscle invasion -Will send path slides to [facility] for second opinion assuming [facility] general pathology states muscle is not present. if they see muscle and there is no invasion, then will restart BCG. 2. Elevated PSA (R97.20: Elevated prostate specific antigen [PSA]) PSA: 08/29/20 - 0.96 12/05/21 - 1.32 Two neg. bx's in the past. + family history, father from prostate cancer. 3. Nocturia (R35.1: Nocturia) Continues Myrbetriq 50mg qd. Follow-up With When Contact Information BARB RAMIREZ, Tonia Vasquez, URL [address] [place] [address]- Additional Instructions: Sending path slides to [facility] Patient Education Bladder Cancer I, Becka Kraft, personally scribed for Dr. Devries on 01/17/2023 11:16:37. . Documentation recorded by the scribe, Becka Kraft, accurately reflects the services(s) I performed and decisions made by me. Authenticated by Dr. Devries on 01/17/2023 11:18:59. Problem List/Past Medical History Ongoing Bladder cancer BPH (benign prostatic hyperplasia) Elevated PSA Family history of prostate cancer Impotence Kidney stone Nocturia Proteinuria Historical No qualifying data Procedure/Surgical History TURBT - Transurethral resection of bladder tumor (01/09/2023), Cystoscopy (12/10/2022), TURBT - Transurethral resection of bladder tumor (07/18/2022), Arthroplasty of knee (2021), Cystoscopy (10/15/2013), Transrectal biopsy of prostate using ultrasound (US) guidance, Transrectal biopsy of prostate using ultrasound (US) guidance. Medications Myrbetriq 50 mg oral tablet, extended release, 50 mg= 1 tab(s), Oral, Daily, 3 refills Allergies No Known Allergies Social History Tobacco 10 or more cigarettes (1/2 pack or more)/day in last 30 days Tobacco Use:. Never Smokeless Tobacco Use:. Cigarettes, Ready to change: No. Household tobacco concerns: No. Yes, 10/22/2022 Family History Prostate cancer: Father. Immunizations Vaccine Date Status Comments BCG 10/22/2022 Giv (more content not included)... Normal [facility] Comment on above: Result Comment: Elec tronically Signed By: Tonia DEVRIES MD\.br\Date and Time Signed: 01/17/23 11:19 EDT\.br\Electronically Co-Signed By: Becka Kraft\.br\Date and Time Co-Signed: 01/17/23 11:17 EDT Lab Reportson 01-13-2023 Lab Reports [id number] #1.00TIFF [facility] Operative Reporton Operative Report [id number] #1.00TIFF [facility] Insurance Correspondenceon 1 Insurance Correspondence [id number] #1.00CD:127 Normal [facility] Lab Reportson 12-18-2022 Lab Reports [id number] #1.00CD:127 [facility] Lab Reports [id number] #1.00CD:127 Normal [facility] UroVysion Fish and Urine Cyt o ([facility])on 12-16-2022 UVFISH & UC Diagnosis Info Invalid Interpretation Code [facility] Comment on above: Result Comment: A:Ur ine,Bladder Wash:Bladder Wash Diagnosis Summary - Negative for dysplastic cells or malignancy. Adequate but limited cellularity for evaluation. Diagnosis Summary - The UroVysion FISH study detected normal copy numbers for chromosomes 3, 7, 17, and 9p21. No evidence of aneuploidy for chromosomes 3, 7, or 17 or deletion of the 9p21 locus was found in cells present in this specimen. These findings should be correlated with cytology and cystoscopy results.* Microscopic Notes - Microscopic Notes - Abnormal cells 9p21 deletions: Abnormal cells aneploid events: Total cells analyzed: Hematuria: Gross Description Site ID:A color Yellow fixative Alcohol Received 110 mls of slightly cloudy yellow fluid with the patient's name and, Bladder Wash on the vial. Electronically signed by : on: 12/16/2022 21:17:44 Performed By: #### 1 [id number] ####[facility] [address] [id number] Consent for Procedure/Surger yon 12-13-2022 Consent for Procedure/Surgery [id number] #1.00CD:127 Normal [facility] PSA Totalon 12-12-2022 Prostate specific Ag [Mass/Vol] 0.7 ng/mL Normal 0.1-3.5 [facility] Comment on above: Result Comment: The concentration of PSA determined by different manufacturers can vary due to differences in assay methods and reagent specificity. Values obtained from different assay methods cannot be used interchangeably. The methodology used for this result was chemiluminescence using [employer]'s Access Hybritech PSA reagent. Performed By: #### 1 [id number] #### [facility] Laboratory [address] [place] [address] Consent for Procedure/Surger yon 12-11-2022 Consent for Procedure/Surgery [id number] #1.00CD:127 Normal [facility] Ambulatory Visit Summaryon 0 12-10-2022 Ambulatory Visit Summary DARIAN DUENAS Maury :1955 Visit Date:12/10/2022 Ambulatory Visit Instructions Your Diagnosis Bladder cancer Your Care Team Attending Physician - BARB RAMIREZ, Tonia Vasquez Primary Care Physician - CATRACHO WILLIS MD This Is Your Medications List ciprofloxacin (Cipro 500 mg Tab) mirabegron (Myrbetriq 50 mg oral tablet, extended release) Procedures Performed Cystoscopy (12/10/2022), TURBT - Transurethral resection of bladder tumor (07/18/2022), Arthroplasty of knee (2021), Cystoscopy (10/15/2013), Transrectal biopsy of prostate using ultrasound (US) guidance, Transrectal biopsy of prostate using ultrasound (US) guidance. Discharge Vitals Heart Rate (Peripheral) 60 Blood Pressure 137/88 Height 182 cm Height 72 in Weight 184 kg Weight 404.8 lb BMI 55.55 What to do next You Need to Schedule the Following Appointments Follow Up with BARB RAMIREZ, ADAM Aranda When: Comments: sched TURBT Where: [facility] [address], [place] [address] [phone] Medications What How Much When Instructions Unchanged ciprofloxacin (Cipro 500 mg Tab) 1 Tablets By Mouth Every day Take 1 tablet the day before the procedure and 1 tablet after the procedure Unchanged mirabegron (Myrbetriq 50 mg oral tablet, extended release) 1 Tablets By Mouth Every day Medications and Immunizations Administered Given lidocaine Top 2% Gel w/Appl 6 mL, 6 mL, Topical. For: Bladder cancer Allergies No Known Allergies Problems Ongoing - Any problem that you are currently receiving treatment for. Bladder cancer BPH (benign prostatic hyperplasia) Elevated PSA Family history of prostate cancer Impotence Kidney stone Nocturia Proteinuria Education Materials Bladder Cancer Bladder cancer is a condition where abnormal tissue (a tumor) grows in the bladder. The bladder is the organ that holds urine. Two tubes (ureters) carry urine from the kidneys to the bladder. The bladder wall is made of layers of tissue. Cancer that spreads through these layers of the bladder wall becomes more difficult to treat. What increases the risk? The following factors may make you more likely to develop this condition: ? Smoking. ? Working where there are risks (occupational exposures), such as working with rubber, leather, clothing fabric, dyes, chemicals, or paint. ? Being 55 years of age or older. ? Being male. ? Having long-term bladder inflammation. ? Having a history of cancer. This includes: ? A family history of bladder cancer. ? Having had bladder cancer before. ? Having had certain treatments for cancer before, such as: ? Medicines to kill cancer cells (chemotherapy). ? Strong X-ray beams or high-energy capsules to kill cancer cells and shrink tumors (radiation therapy). ? Having been exposed to arsenic. This is a poisonous substance. What are the signs or symptoms? Early symptoms of this condition include: ? Blood in your urine. ? Pain when urinating. ? Infections of your urinary system (urinary tract infections or UTIs) that happen often. ? Having to urinate sooner or more often than normal. Late symptoms of this condition include: ? Not being able to urinate. ? Pain on one side of your lower back. ? Loss of appetite. ? Weight loss. ? Tiredness (fatigue). ? Swelling in your feet. ? Bone pain. How is this diagnosed? This condition is diagnosed based on: ? Your medical history. ? A physical exam. ? Lab tests, such as urine tests. ? Imaging tests. ? Your symptoms. You may also have other tests or procedures, such as: ? A cystoscopy. This involves putting a narrow tube into your urethra. The urethra is the organ that carries urine from your bladder to the outside of your body. This procedure is done to view the lining of your bladder for tumors. ? A biopsy. This involves removing a tissue sample to look at under a microscope to check for cancer. Blood tests or imaging tests may be needed. These show how far into the bladder wall cancer has grown, and if cancer has spread to any other parts of your body. Tests may include: ? CT scan. ? MRI. ? Bone scan. ? X-ray. How is this treated? Your health care provider may recommend one or more types of treatment based on the stage of your cancer. The most common treatments are: ? Surgery to remove the cancer. Types of surgeries include: ? Removing a tumor on the inside wall of the bladder (transurethral resection). ? Removing the bladder (cystectomy). ? Radiation therapy. This is often combined with chemotherapy. ? Chemotherapy. ? Immunotherapy. This uses medicines to help your body's disease-fighting system (immune system) destroy cancer cells. Follow these instructions at home: ? Take eivv-zjy-upcebec and prescription medicines only as told by your health care provi (more content not included)... Normal [facility] Patient Educationon 12-11-19 Patient Education Oncology Bladder Cancer Bladder cancer is a condition where abnormal tissue (a tumor) grows in the bladder. The bladder is the organ that holds urine. Two tubes (ureters) carry urine from the kidneys to the bladder. The bladder wall is made of layers of tissue. Cancer that spreads through these layers of the bladder wall becomes more difficult to treat. What increases the risk? The following factors may make you more likely to develop this condition: ? Smoking. ? Working where there are risks (occupational exposures), such as working with rubber, leather, clothing fabric, dyes, chemicals, or paint. ? Being 55 years of age or older. ? Being male. ? Having long-term bladder inflammation. ? Having a history of cancer. This includes: ? A family history of bladder cancer. ? Having had bladder cancer before. ? Having had certain treatments for cancer before, such as: ? Medicines to kill cancer cells (chemotherapy). ? Strong X-ray beams or high-energy capsules to kill cancer cells and shrink tumors (radiation therapy). ? Having been exposed to arsenic. This is a poisonous substance. What are the signs or symptoms? Early symptoms of this condition include: ? Blood in your urine. ? Pain when urinating. ? Infections of your urinary system (urinary tract infections or UTIs) that happen often. ? Having to urinate sooner or more often than normal. Late symptoms of this condition include: ? Not being able to urinate. ? Pain on one side of your lower back. ? Loss of appetite. ? Weight loss. ? Tiredness (fatigue). ? Swelling in your feet. ? Bone pain. How is this diagnosed? This condition is diagnosed based on: ? Your medical history. ? A physical exam. ? Lab tests, such as urine tests. ? Imaging tests. ? Your symptoms. You may also have other tests or procedures, such as: ? A cystoscopy. This involves putting a narrow tube into your urethra. The urethra is the organ that carries urine from your bladder to the outside of your body. This procedure is done to view the lining of your bladder for tumors. ? A biopsy. This involves removing a tissue sample to look at under a microscope to check for cancer. Blood tests or imaging tests may be needed. These show how far into the bladder wall cancer has grown, and if cancer has spread to any other parts of your body. Tests may include: ? CT scan. ? MRI. ? Bone scan. ? X-ray. How is this treated? Your health care provider may recommend one or more types of treatment based on the stage of your cancer. The most common treatments are: ? Surgery to remove the cancer. Types of surgeries include: ? Removing a tumor on the inside wall of the bladder (transurethral resection). ? Removing the bladder (cystectomy). ? Radiation therapy. This is often combined with chemotherapy. ? Chemotherapy. ? Immunotherapy. This uses medicines to help your body's disease-fighting system (immune system) destroy cancer cells. Follow these instructions at home: ? Take xwbp-roa-dsjqabv and prescription medicines only as told by your health care provider. ? If you were prescribed an antibiotic medicine, take it as told by your health care provider. Do not stop using the antibiotic even if you start to feel better. ? Eat a healthy diet. Some treatments might affect your appetite. ? Do not use any products that contain nicotine or tobacco. These products include cigarettes, chewing tobacco, and vaping devices, such as e-cigarettes. If you need help quitting, ask your health care provider. ? Consider joining a support group. This may help you learn to deal with the stress of having bladder cancer. ? Tell your cancer care team if you develop side effects. Your team may be able to recommend ways to get relief. ? Keep all follow-up visits. This is important. Where to find more information ? [place] [employer] (ACS): cancer.org ? National Cancer [place] (NCI): cancer.gov Contact a health care provider if: ? You have symptoms of a UTI. These include: ? Fever. ? Chills. ? Weakness. ? Muscle aches. ? Pain in your abdomen. ? Urge to urinate that is stronger and happens more often than normal. ? Burning in the bladder or urethra when you urinate. Get help right away if: ? There is blood in your urine. ? You cannot urinate. ? You have severe pain or other symptoms that do not go away. Summary ? Bladder cancer is a condition where tumors grow in the bladder. ? Diagnosis is based on your medical history, a physical exam, lab tests, imaging tests, and your symptoms. ? Your health care provider may recommend one or more types of treatment based on the stage of your cancer. ? Consider joining a support group. This may help you learn to deal with the stress of having bladder cancer. This information is not intended to replace advice given to you by your health care provider. Make sure you discuss any questions you have wi (more content not included)... Normal [facility] UroVysion Fish and Urine Cyt o ([facility])on 12-10-2022 [facility] Method of Extraction Bladder Wash Normal [facility] Comment on above: Performed By: #### 1 [id number] ####[facility] [address] [place] [address] [facility] Number of Jars 1 Invalid Interpretation Code [facility] Comment on above: Performed By: #### 1 [id number] ####[facility] [address] [place] [address] [facility] Specimen Bladder Wash Normal [facility] Comment on above: Performed By: #### 1 [id number] ####[facility] [address] [place] [address] [facility] Type of Service Technical Only Normal [facility] Comment on above: Performed By: #### 1 [id number] ####[facility] [address] [place] [address] Urology Office/Clinic Noteon 12-10-2022 Urology Office/Clinic Note Chief Complaint Cysto HPI Staff Cysto/FISH/cytology ABX TAKEN Pt. finished last BCG 10/22/22. History of Present Illness Tests reviewed: none I have reviewed the previous health record information and history for this patient from MAX Reyna. I have reviewed and verified the staff HPI to be accurate for this encounter. There have been no associated fever, chills, flank pain, or blood in the urine. Denies any urinary infections since last encounter. Review of Systems PHQ Score Initial Depression Screen Score: 0 ROS - Provider Constitutional: denies weight loss, denies hot flashes. Eyes: denies eye problems. Gastrointestinal: denies nausea, denies vomiting. Cardiovascular: denies chest pain or angina. Integumentary: no dryness Musculoskeletal: denies musculoskeletal symptoms. ENMT: denies otolaryngeal symptoms. Respiratory: no shortness of breath. Heme/Lymph: denies easy bleeding tendency, denies easy bruising tendency. Psychiatric: no confusion, no anxiety. Genitourinary: See HPI. Physical Exam Vitals & Measurements HR: 60(Peripheral) BP: 137/88 HT: 72 in HT: 182 cm WT: 184 kg WT: 404.8 lb BMI: 55.55 General Appearance: alert, no distress, well nourished, well developed male. Genitourinary: normal scrotum, normal testes, normal urethra, normal epididymis, normal vas deferens/spermatic cord. Flank Pain: none. Bladder: nonpalpable. Procedure Operative Information Anesthesia Type: Local Procedure: Local Cystoscopy Complications: None Surgical risks, benefits, details of the procedure have been explained to the patient. Full informed consent has been obtained. Intraoperative Information Prepped: Patient is brought back to the endoscopy suite. Patient is placed in supine position. Patient prepped in the usual fashion with Betadine solution. 2% Xylocaine Jelly is placed per Urethra. After waiting several minutes, the Cystoscope is introduced. The Urethra is: open_ The Prostatic Urethra is: bilobar obstruction_ The Bladder: no classic bladder tumors, over prior resection sites on the floor: raised red and white areas of uncertain origin, 3-4 cm in linear fashion...?recurrenc e vs bcg effect?_, Trabeculated: None (0) The Ureteral orifices: Show efflux of clear urine Specimens Removed: Bladder wash sent for FISH and Cytology test Removal: Cystoscope is removed. The patient tolerated it well. Postoperative Information Patient is discharged home with antibiotic coverage. Follow up arranged. Assessment/Plan 1. Bladder cancer (C67.9: Malignant neoplasm of bladder, unspecified) S/p TURBT done 07/18/22. 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 Pt completed BCG #6 on 10/22/22. Pt to complete 3 BCGs in April. Pt had cysto done IO today wo complications. Prophy abx taken prior. Bladder wash sent for FISH/cytology. No classic bt found on cysto today, but there are red/white areas of uncertainty. Will schedule Cysto with TURBT. The procedure risks, benefits, details, and treatment alternatives have been discussed with the patient. These include bleeding -- sometimes to the point of hemorrhaging, infection, risk of bladder perforation, recurrence of bladder tumor in 60-70% of patients, need for indwelling catheter for a variable amount of time, as well as the rare risk of needing an open operation to repair the bladder, among others. Additional therapy as well as follow-up bladder evaluation will most likely be required. Full informed consent has been obtained. Will order General anesthesia. Follow-up With When Contact Information Tonia DEVRIES MD, URL [facility] [address] [place] [address]- [phone] Additional Instructions: sched TURBT Patient Education Bladder Cancer I, Lisset Paul, personally scribed for Dr. Devries on 12/10/2022 14:09:52. . Documentation recorded by the scribe, Lisset Paul, accurately reflects the services(s) I performed and decisions made by me. Authenticated by Dr. Devries on 12/10/2022 14:17:04. Problem List/Past Medical History Ongoing Bladder cancer BPH (benign prostatic hyperplasia) Elevated PSA Family history of prostate cancer Impotence Kidney stone Nocturia Proteinuria Historical No qualifying data Procedure/Surgical History Cystoscopy (12/10/2022), TURBT - Transurethral resection of bladder tumor (07/18/2022), Arthroplasty of knee (2021), Cystoscopy (10/15/2013), Transrectal biopsy of prostate using ultrasound (US) guidance, Transrectal biopsy of prostate using ultrasound (US) guidance. Medications Cipro 500 mg Tab, 500 mg= 1 tab(s), Oral, Daily Myrbetriq 50 mg oral tablet, extended release, 50 mg= 1 tab(s), Oral, Daily, 3 refills Allergies No Known Allergies Social History Tobacco 10 or more cigarettes (1/2 pack or more)/day in last 30 days Tobacco Use:. Never Smokeless To (more content not included)... Normal [facility] Comment on above: Result Comment: Elec tronically Signed By: Tonia DEVRIES MD\.br\Date and Time Signed: 12/10/22 14:17 EDT\.br\Electronically Co-Signed By: Lisset Paul\.br\Date and Time Co-Signed: 12/10/22 14:14 EDT Ambulatory Visit Summaryon 0 12-09-2022 Ambulatory Visit Summary HENRIQUEDARIAN Maury :1955 Visit Date:12/09/2022 Ambulatory Visit Instructions Your Diagnosis Elevated PSA Family history of prostate cancer Your Care Team Attending Physician - Tonia DEVRIES MD Primary Care Physician - NADERER MD, CATRACHO This Is Your Medications List ciprofloxacin (Cipro 500 mg Tab) mirabegron (Myrbetriq 50 mg oral tablet, extended release) Procedures Performed TURBT - Transurethral resection of bladder tumor (07/18/2022), Arthroplasty of knee (2021), Cystoscopy (10/15/2013), Transrectal biopsy of prostate using ultrasound (US) guidance, Transrectal biopsy of prostate using ultrasound (US) guidance. What to do next Scheduled Follow-Up Appointments Friday 1:30 PM EDT With: Tonia DEVRIES MD Where: [facility] Ambulatory Visit Summaryon 0 10-22-2022 Ambulatory Visit Summary DARIAN DUENAS :1955 Visit Date:10/22/2022 Ambulatory Visit Instructions Your Diagnosis Bladder cancer Tests Performed Urnls Dip Stick Auto w/o Microscopy POC 13349 Your Care Team Attending Physician - YAHAIRA LONG PA-C Primary Care Physician - CATRACHO WILLIS MD This Is Your Medications List mirabegron (Myrbetriq 50 mg oral tablet, extended release) Procedures Performed TURBT - Transurethral resection of bladder tumor (07/18/2022), Arthroplasty of knee (2021), Cystoscopy (10/15/2013), Transrectal biopsy of prostate using ultrasound (US) guidance, Transrectal biopsy of prostate using ultrasound (US) guidance. Discharge Vitals Heart Rate (Peripheral) 60 Blood Pressure 118/73 Height 182 cm Height 72 in Weight 84 kg Weight 184.8 lb BMI 25.36 What to do next Scheduled Follow-Up Appointments Friday 10:45 AM EDT With: Tonia DEVRIES MD Where: [facility] Patient Educationon 10-23-19 23 Patient Education Oncology Bladder Cancer Bladder cancer is a condition where abnormal tissue (a tumor) grows in the bladder. The bladder is the organ that holds urine. Two tubes (ureters) carry urine from the kidneys to the bladder. The bladder wall is made of layers of tissue. Cancer that spreads through these layers of the bladder wall becomes more difficult to treat. What increases the risk? The following factors may make you more likely to develop this condition: ? Smoking. ? Working where there are risks (occupational exposures), such as working with rubber, leather, clothing fabric, dyes, chemicals, or paint. ? Being 55 years of age or older. ? Being male. ? Having long-term bladder inflammation. ? Having a history of cancer. This includes: ? A family history of bladder cancer. ? Having had bladder cancer before. ? Having had certain treatments for cancer before, such as: ? Medicines to kill cancer cells (chemotherapy). ? Strong X-ray beams or high-energy capsules to kill cancer cells and shrink tumors (radiation therapy). ? Having been exposed to arsenic. This is a poisonous substance. What are the signs or symptoms? Early symptoms of this condition include: ? Blood in your urine. ? Pain when urinating. ? Infections of your urinary system (urinary tract infections or UTIs) that happen often. ? Having to urinate sooner or more often than normal. Late symptoms of this condition include: ? Not being able to urinate. ? Pain on one side of your lower back. ? Loss of appetite. ? Weight loss. ? Tiredness (fatigue). ? Swelling in your feet. ? Bone pain. How is this diagnosed? This condition is diagnosed based on: ? Your medical history. ? A physical exam. ? Lab tests, such as urine tests. ? Imaging tests. ? Your symptoms. You may also have other tests or procedures, such as: ? A cystoscopy. This involves putting a narrow tube into your urethra. The urethra is the organ that carries urine from your bladder to the outside of your body. This procedure is done to view the lining of your bladder for tumors. ? A biopsy. This involves removing a tissue sample to look at under a microscope to check for cancer. Blood tests or imaging tests may be needed. These show how far into the bladder wall cancer has grown, and if cancer has spread to any other parts of your body. Tests may include: ? CT scan. ? MRI. ? Bone scan. ? X-ray. How is this treated? Your health care provider may recommend one or more types of treatment based on the stage of your cancer. The most common treatments are: ? Surgery to remove the cancer. Types of surgeries include: ? Removing a tumor on the inside wall of the bladder (transurethral resection). ? Removing the bladder (cystectomy). ? Radiation therapy. This is often combined with chemotherapy. ? Chemotherapy. ? Immunotherapy. This uses medicines to help your body's disease-fighting system (immune system) destroy cancer cells. Follow these instructions at home: ? Take mgvd-pgs-ubyltli and prescription medicines only as told by your health care provider. ? If you were prescribed an antibiotic medicine, take it as told by your health care provider. Do not stop using the antibiotic even if you start to feel better. ? Eat a healthy diet. Some treatments might affect your appetite. ? Do not use any products that contain nicotine or tobacco. These products include cigarettes, chewing tobacco, and vaping devices, such as e-cigarettes. If you need help quitting, ask your health care provider. ? Consider joining a support group. This may help you learn to deal with the stress of having bladder cancer. ? Tell your cancer care team if you develop side effects. Your team may be able to recommend ways to get relief. ? Keep all follow-up visits. This is important. Where to find more information ? [place] [employer] (ACS): cancer.org ? National Cancer [place] (NCI): cancer.gov Contact a health care provider if: ? You have symptoms of a UTI. These include: ? Fever. ? Chills. ? Weakness. ? Muscle aches. ? Pain in your abdomen. ? Urge to urinate that is stronger and happens more often than normal. ? Burning in the bladder or urethra when you urinate. Get help right away if: ? There is blood in your urine. ? You cannot urinate. ? You have severe pain or other symptoms that do not go away. Summary ? Bladder cancer is a condition where tumors grow in the bladder. ? Diagnosis is based on your medical history, a physical exam, lab tests, imaging tests, and your symptoms. ? Your health care provider may recommend one or more types of treatment based on the stage of your cancer. ? Consider joining a support group. This may help you learn to deal with the stress of having bladder cancer. This information is not intended to replace advice given to you by your health care provider. Make sure you discuss any questions you have wi (more content not included)... Normal [facility] Urology Office/Clinic Noteon 10-22-2022 Urology Office/Clinic Note Chief Complaint BCG #6 of 6 HPI Staff Pt is here today for BCG #6 of 6 for Tx of Bladder Cancer. Additional DX: Elevated PSA, Nocturia, Kidney Stone & Impotence. *Myrbetriq 50mg QD. Reminder is in chart for 3m Cysto FISH/Cyt (bt check) due in October. History of Present Illness staff HPI reviewed and agree. Review of Systems PHQ Score Initial Depression Screen Score: 0 no fever, chills, malaise, myalgia. no rash/lesions. no chest pain, palpitations, or SOB. no abdominal pain, nausea, vomiting. no unilateral calf swelling, redness, pain Physical Exam Vitals & Measurements HR: 60(Peripheral) BP: 118/73 HT: 72 in HT: 182 cm WT: 84 kg WT: 184.8 lb BMI: 25.36 General: nontoxic, NAD Mouth: moist mucosa Lungs: normal respiratory effort Cardio: regular rate, good distal perfusion Abdomen: nondistended, no suprapubic distention or tenderness, no CVA tenderness Neurologic: Grossly normal Skin: No rashes or suspicious lesions Procedure The patient was placed in the appropriate position and under sterile conditions, the urethra is catheterized with a 14 Fr straight catheter and the bladder is emptied. 30 cc of sterile 0.9 NS with one vial of RHONDA BCG was placed into the bladder and the straight catheter was removed. The patient will hold the solution in the bladder for two hours, turning every fifteen minutes 1/4 turn to allow coating of the bladder surface. The patient should call the office or present to the Emergency Department for development of fever, chills, or flu-like symptoms. Symptoms such as urinary frequency, urgency, and other bladder irritation symptoms are expected. Assessment/Plan 1. Bladder cancer (C67.9: Malignant neoplasm of bladder, unspecified) Patient received BCG #6 of 6 today without complications, tolerated well. UA today TRACE-INTACT blood Reminder in chart for cysto/FISH/cyto (bt check) in October. Follow-up With When Contact Information BARB RAMIREZ, Tonia Vasquez, URL [facility] [place] [address]- Additional Instructions: October cysto/FISH/cyto Patient Education Bladder Cancer Documentation recorded by the nolan Kraft accurately reflects the services(s) I performed and decisions made by me. Authenticated by Yahaira Long PA-C on 10/22/2022 09:42:27. IBecka, personally scribed for Yahaira Long PA-C on 10/22/2022 09:33:34. . Problem List/Past Medical History Ongoing Bladder cancer BPH (benign prostatic hyperplasia) Elevated PSA Family history of prostate cancer Impotence Kidney stone Nocturia Proteinuria Historical No qualifying data Procedure/Surgical History TURBT - Transurethral resection of bladder tumor (07/18/2022), Arthroplasty of knee (2021), Cystoscopy (10/15/2013), Transrectal biopsy of prostate using ultrasound (US) guidance, Transrectal biopsy of prostate using ultrasound (US) guidance. Medications Myrbetriq 50 mg oral tablet, extended release, 50 mg= 1 tab(s), Oral, Daily, 3 refills Allergies No Known Allergies Social History Tobacco 10 or more cigarettes (1/2 pack or more)/day in last 30 days Tobacco Use:. Never Smokeless Tobacco Use:. Cigarettes, Ready to change: No. Household tobacco concerns: No. Yes, 10/22/2022 Family History Prostate cancer: Father. Immunizations Vaccine Date Status Comments BCG 10/22/2022 Given BCG 10/14/2022 Given Early/Late Reason: Other : Late documentation. Did not enter correct info BCG 10/14/2022 Given BCG 10/14/2022 Given BCG 10/08/2022 Given BCG 09/17/2022 Given BCG 09/10/2022 Given BCG 09/03/2022 Given BCG 08/27/2022 Given SARS-CoV-2 (COVID-19) mRNA BNT-162b2 vax 02/28/2021 Recorded SARS-CoV-2 (COVID-19) mRNA BNT-162b2 vax 09/01/2020 Recorded SARS-CoV-2 (COVID-19) mRNA BNT-162b2 vax 08/11/2020 Recorded Lab Results Ambulatory Point of Care Results Bilirubin Urine Dipstick: Negative (10/22/22 09:05:00) Blood Urine Dipstick: Trace-intact (10/22/22 09:05:00) Glucose Urine Dipstick: Negative (10/22/22 09:05:00) Ketones Urine Dipstick: Negative (10/22/22 09:05:00) Leukocytes Urine Dipstick: Negative (10/22/22 09:05:00) Nitrite Urine Dipstick: Negative (10/22/22 09:05:00) Protein Urine Dipstick: Negative (10/22/22 09:05:00) Specific Lyme Urine Dipstick: 1.020 (10/22/22 09:05:00) Urine Appearance Urine Dipstick: Clear (10/22/22 09:05:00) Urine Color Urine Dipstick: Yellow (10/22/22 09:05:00) Urobilinogen Urine Dipstick: Normal 0.2-1 EU/dl (10/22/22 09:05:00) pH Urine Dipstick: 7 (10/22/22 09:05:00) Normal [facility] Comment on above: Result Comment: Elec tronically Signed By: YAHAIRA LONG PA-C\.br\Date and Time Signed: 10/22/22 09:47 EDT\.br\Electronically Co-Signed By: Becka Kraft\.br\Date and Time Co-Signed: 10/22/22 09:33 EDT Ambulatory Visit Summaryon 0 10-14-2022 Ambulatory Visit Summary DARIAN DUENAS :1955 Visit Date:10/14/2022 Ambulatory Visit Instructions Your Diagnosis Bladder cancer Tests Performed Urnls Dip Stick Auto w/o Microscopy POC 79678 Your Care Team Attending Physician - BARB RAMIREZ, Tonia Vasquez Primary Care Physician - CATRACHO WILLIS MD This Is Your Medications List Contact prescribing physician if questions or concerns mirabegron (Myrbetriq 50 mg oral tablet, extended release) Procedures Performed TURBT - Transurethral resection of bladder tumor (07/18/2022), Arthroplasty of knee (2021), Cystoscopy (10/15/2013), Transrectal biopsy of prostate using ultrasound (US) guidance, Transrectal biopsy of prostate using ultrasound (US) guidance. Discharge Vitals Heart Rate (Peripheral) 70 Respiratory Rate 16 Blood Pressure 120/80 Height 182 cm Height 72 in Weight 84 kg Weight 184.8 lb BMI 25.36 What to do next Scheduled Follow-Up Appointments Friday 8:45 AM EDT With: YAHAIRA LONG PA-C Where: [facility] Normal [address] [place] [address] [place] [address]- \.br\ You Need to Schedule the Following Appointments\.b r\ Follow Up with BARB RAMIREZ, Tonia Vasquez, ADAM When: \.br\ Comments:\.br\ BCG #6/6 on 10/22/22 with ANA M\.br\ Where:\.br\ [facility] [address]\.br\ [place] [address]-\.br\ [phone]\.br\ Medications\.br \ What How Much When Instructions\.b r\ Unchanged mirabegron (Myrbetriq 50 mg oral tablet, extended release) 1 Tablets By Mouth Every day Contact prescribing physician if questions or concerns \.br\ Test Results\.br\ Urnls Dip Stick Auto w/o Microscopy POC 82423 (10/14/2022)\.b r\ Bilirubin Urine Dipstick - Negative\.br\ Blood Urine Dipstick - Trace-lysed\.br \ Glucose Urine Dipstick - Negative\.br\ Ketones Urine Dipstick - Negative\.br\ Leukocytes Urine Dipstick - Trace\.br\ Nitrite Urine Dipstick - Negative\.br\ Protein Urine Dipstick - Negative\.br\ Specific Lyme Urine Dipstick - 1.020\.br\ Urine Appearance Urine Dipstick - Clear\.br\ Urine Color Urine Dipstick - Yellow\.br\ Urobilinogen Urine Dipstick - Normal 0.2-1 EU/dl\.br\ pH Urine Dipstick - 7\.br\ Medications and Immunizations Administered\.b r\ Given\.br\ Rhonda BCG Live (for intravesical use), 50 mg, IntraVesical. For: Bladder cancer\.br\ Haywood BCG Live (for intravesical use), 50 mg, IntraVesical. For: Bladder cancer\.br\ BCG, IntraVesical\.b r\ BCG, IntraVesical\.b r\ Allergies\.br\ No Known Allergies\.br\ Problems\.br\ Ongoing - Any problem that you are currently receiving treatment for.\.br\ Bladder cancer\.br\ BPH (benign prostatic hyperplasia)\.b r\ Elevated PSA\.br\ Family history of prostate cancer\.br\ Impotence\.br\ Kidney stone\.br\ Nocturia\.br\ Proteinuria\.br \ Education Materials\.br\ Bladder Cancer\.br\ \.br\ Bladder cancer is a condition where abnormal tissue (a tumor) grows in the bladder. The bladder is the organ that holds urine. Two tubes (ureters) carry urine from the kidneys to the bladder.\.br\ The bladder wall is made of layers of tissue. Cancer that spreads through these layers of the bladder wall becomes more difficult to treat.\.br\ What increases the risk?\.br\ The following factors may make you more likely to develop this condition:\.br\ ? \.br\ Smoking.\.br\ ? \.br\ Working where there are risks (occupational exposures), such as working with rubber, leather, clothing fabric, dyes, chemicals, or paint.\.br\ ? \.br\ Being 55 years of age or older.\.br\ ? \.br\ Being male.\.br\ ? \.br\ Having long-term bladder inflammation.\. br\ ? \.br\ Having a history of cancer. This includes:\.br\ ? \.br\ A family history of bladder cancer.\.br\ ? \.br\ Having had bladder cancer before.\.br\ ? \.br\ Having had certain treatments for cancer before, such as:\.br\ ? \.br\ Medicines to kill cancer cells (chemotherapy). \.br\ ? \.br\ Strong X-ray beams or high-energy capsules to kill cancer cells and shrink tumors (radiation therapy).\.br\ ? \.br\ Having been exposed to arsenic. This is a poisonous substance.\.br\ What are the signs or symptoms?\.br\ Early symptoms of this condition include:\.br\ ? \.br\ Blood in your urine.\.br\ ? \.br\ Pain when urinating.\.br\ ? \.br\ Infections of your urinary system (urinary tract infections or UTIs) that happen often.\.br\ ? \.br\ Having to urinate sooner or more often than normal.\.br\ Late symptoms of this condition include:\.br\ ? \.br\ Not being able to urinate.\.br\ ? \.br\ Pain on one side of your lower back.\.br\ ? \.br\ Loss of appetite.\.br\ ? \.br\ Weight loss.\.br\ ? \.br\ Tiredness (fatigue).\.br\ ? \.br\ Swelling in your feet.\.br\ ? \.br\ Bone pain.\.br\ How is this diagnosed?\.br\ This condition is diagnosed based on:\.br\ ? \.br\ Your medical history.\.br\ ? \.br\ A physical exam.\.br\ ? \.br\ Lab tests, such as urine tests.\.br\ ? \.br\ Imaging tests.\.br\ ? \.br\ Your symptoms.\.br\ You may also have other tests or procedures, such as:\.br\ ? \.br\ A cystoscopy. This involves putting a narrow tube into your urethra. The urethra is the organ that carries urine from your bladder to the outside of your body. This procedure is done to view the lining of your bladder for tumors.\.br\ ? \.br\ A biopsy. This involves removing a tissue sample to look at under a microscope to check for cancer.\.br\ Blood tests or imaging tests may be needed. These show how far into the bladder wall cancer has grown, and if cancer has spread to any other parts of your body. Tests may include:\.br\ ? \.br\ CT scan.\.br\ ? \.br\ MRI.\.br\ ? \.br\ Bone scan.\.br\ ? \.br\ X-ray.\.br\ How is this treated?\.br\ Your health care provider may recommend one or more types of treatment based on the stage of your cancer. The most common treatments are:\.br\ ? \.br\ Surgery to remove the cancer. Types of surgeries include:\.br\ ? \.br\ Removing a tumor on the inside wall of the bladder (transurethral resection).\.br \ ? \.br\ Removing the bladder (cystectomy).\. br\ ? \.br\ Radiation therapy. This is often combined with chemotherapy.\. br\ ? \.br\ Chemotherapy.\. br\ ? \.br\ Immunotherapy. This uses medicines to help your body's disease-fightin g system (immune system) destroy cancer cells.\.br\ Follow these instructions at home:\.br\ ? \.br\ Take mugd-kwj-exndhn r and prescription medicines only as told by your health care provider.\.br\ ? \.br\ If you were prescribed an antibiotic medicine, take it as told by your health care provider. Do not stop using the antibiotic even if you start to feel better.\.br\ ? \.br\ Eat a healthy diet. Some treatments might affect your appetite.\.br\ ? \.br\ Do not use any products that contain nicotine or tobacco. These products include cigarettes, chewing tobacco, and vaping devices, such as e-cigarettes. If you need help quitting, ask your health care provider.\.br\ ? \.br\ Consider joining a support group. This may help you learn to deal with the stress of having bladder cancer.\.br\ ? \.br\ Tell your cancer care team if you develop side effects. Your team may be able to recommend ways to get relief.\.br\ ? \.br\ Keep all follow-up visits. This is important.\.br\ Where to find more information\.br \ ? \.br\ [place] [employer] (ACS): cancer.org\.br\ ? \.br\ National Cancer [place] (NCI): cancer.gov\.br\ Contact a health care provider if:\.br\ ? \.br\ You have symptoms of a UTI. These include:\.br\ ? \.br\ Fever.\.br\ ? \.br\ Chills.\.br\ ? \.br\ Weakness.\.br\ ? \.br\ Muscle aches.\.br\ ? \.br\ Pain in your abdomen.\.br\ ? \.br\ Urge to urinate that is stronger and happens more often than normal.\.br\ ? \.br\ Burning in the bladder or urethra when you urinate.\.br\ Get help right away if:\.br\ ? \.br\ There is blood in your urine.\.br\ ? \.br\ You cannot urinate.\.br\ ? \.br\ You have severe pain or other symptoms that do not go away.\.br\ Summary\.br\ ? \.br\ Bladder cancer is a condition where tumors grow in the bladder.\.br\ ? \.br\ Diagnosis is based on your medical history, a physical exam, lab tests, imaging tests, and your symptoms.\.br\ [facility] Patient Educationon 10-15-19 Patient Education Oncology Bladder Cancer Bladder cancer is a condition where abnormal tissue (a tumor) grows in the bladder. The bladder is the organ that holds urine. Two tubes (ureters) carry urine from the kidneys to the bladder. The bladder wall is made of layers of tissue. Cancer that spreads through these layers of the bladder wall becomes more difficult to treat. What increases the risk? The following factors may make you more likely to develop this condition: ? Smoking. ? Working where there are risks (occupational exposures), such as working with rubber, leather, clothing fabric, dyes, chemicals, or paint. ? Being 55 years of age or older. ? Being male. ? Having long-term bladder inflammation. ? Having a history of cancer. This includes: ? A family history of bladder cancer. ? Having had bladder cancer before. ? Having had certain treatments for cancer before, such as: ? Medicines to kill cancer cells (chemotherapy). ? Strong X-ray beams or high-energy capsules to kill cancer cells and shrink tumors (radiation therapy). ? Having been exposed to arsenic. This is a poisonous substance. What are the signs or symptoms? Early symptoms of this condition include: ? Blood in your urine. ? Pain when urinating. ? Infections of your urinary system (urinary tract infections or UTIs) that happen often. ? Having to urinate sooner or more often than normal. Late symptoms of this condition include: ? Not being able to urinate. ? Pain on one side of your lower back. ? Loss of appetite. ? Weight loss. ? Tiredness (fatigue). ? Swelling in your feet. ? Bone pain. How is this diagnosed? This condition is diagnosed based on: ? Your medical history. ? A physical exam. ? Lab tests, such as urine tests. ? Imaging tests. ? Your symptoms. You may also have other tests or procedures, such as: ? A cystoscopy. This involves putting a narrow tube into your urethra. The urethra is the organ that carries urine from your bladder to the outside of your body. This procedure is done to view the lining of your bladder for tumors. ? A biopsy. This involves removing a tissue sample to look at under a microscope to check for cancer. Blood tests or imaging tests may be needed. These show how far into the bladder wall cancer has grown, and if cancer has spread to any other parts of your body. Tests may include: ? CT scan. ? MRI. ? Bone scan. ? X-ray. How is this treated? Your health care provider may recommend one or more types of treatment based on the stage of your cancer. The most common treatments are: ? Surgery to remove the cancer. Types of surgeries include: ? Removing a tumor on the inside wall of the bladder (transurethral resection). ? Removing the bladder (cystectomy). ? Radiation therapy. This is often combined with chemotherapy. ? Chemotherapy. ? Immunotherapy. This uses medicines to help your body's disease-fighting system (immune system) destroy cancer cells. Follow these instructions at home: ? Take zntp-uaz-uzwdnlp and prescription medicines only as told by your health care provider. ? If you were prescribed an antibiotic medicine, take it as told by your health care provider. Do not stop using the antibiotic even if you start to feel better. ? Eat a healthy diet. Some treatments might affect your appetite. ? Do not use any products that contain nicotine or tobacco. These products include cigarettes, chewing tobacco, and vaping devices, such as e-cigarettes. If you need help quitting, ask your health care provider. ? Consider joining a support group. This may help you learn to deal with the stress of having bladder cancer. ? Tell your cancer care team if you develop side effects. Your team may be able to recommend ways to get relief. ? Keep all follow-up visits. This is important. Where to find more information ? [place] [employer] (ACS): cancer.org ? National Cancer [place] (NCI): cancer.gov Contact a health care provider if: ? You have symptoms of a UTI. These include: ? Fever. ? Chills. ? Weakness. ? Muscle aches. ? Pain in your abdomen. ? Urge to urinate that is stronger and happens more often than normal. ? Burning in the bladder or urethra when you urinate. Get help right away if: ? There is blood in your urine. ? You cannot urinate. ? You have severe pain or other symptoms that do not go away. Summary ? Bladder cancer is a condition where tumors grow in the bladder. ? Diagnosis is based on your medical history, a physical exam, lab tests, imaging tests, and your symptoms. ? Your health care provider may recommend one or more types of treatment based on the stage of your cancer. ? Consider joining a support group. This may help you learn to deal with the stress of having bladder cancer. This information is not intended to replace advice given to you by your health care provider. Make sure you discuss any questions you have wi (more content not included)... Normal [facility] Urology Office/Clinic Noteon 10-14-2022 Urology Office/Clinic Note Chief Complaint BCG #5 of 6 HPI Staff Pt is here today for BCG #5 of 6 for Tx of Bladder Cancer. Additional DX: Elevated PSA, Nocturia, Kidney Stone & Impotence. *Myrbetriq 50mg QD. Denies all urinary complaints at this time. History of Present Illness Tests reviewed: reviewed UA I have reviewed the previous health record information and history for this patient from Dr. Devries. I have reviewed and verified the staff HPI to be accurate for this encounter. There have been no associated fever, chills, flank pain, or blood in the urine. Denies any urinary infections since last encounter. Review of Systems PHQ Score Initial Depression Screen Score: 0 ROS - Provider Constitutional: denies weight loss, denies hot flashes. Eyes: denies eye problems. Gastrointestinal: denies nausea, denies vomiting. Cardiovascular: denies chest pain or angina. Integumentary: no dryness Musculoskeletal: denies musculoskeletal symptoms. ENMT: denies otolaryngeal symptoms. Respiratory: no shortness of breath. Heme/Lymph: denies easy bleeding tendency, denies easy bruising tendency. Psychiatric: no confusion, no anxiety. Genitourinary: See HPI. Physical Exam Vitals & Measurements HR: 70(Peripheral) RR: 16 BP: 120/80 HT: 72 in HT: 182 cm WT: 84 kg WT: 184.8 lb BMI: 25.36 General Appearance: alert, no distress, well nourished, well developed male. Genitourinary: normal scrotum, normal testes, normal urethra, normal epididymis, normal vas deferens/spermatic cord. Flank Pain: none. Bladder: nonpalpable. Procedure The patient was placed in the appropriate position and under sterile conditions, the urethra is catheterized with a 14 Fr straight catheter and the bladder is emptied. 30 cc of sterile 0.9 NS with one vial of RHONDA BCG was placed into the bladder and the straight catheter was removed. The patient will hold the solution in the bladder for two hours, turning every fifteen minutes 1/4 turn to allow coating of the bladder surface. The patient should call the office or present to the Emergency Department for development of fever, chills, or flu-like symptoms. Symptoms such as urinary frequency, urgency, and other bladder irritation symptoms are expected. Assessment/Plan 1. Bladder cancer (C67.9: Malignant neoplasm of bladder, unspecified) Patient received BCG #5 of 6 today without complications, tolerated well. UA today shows trace-lysed blood and trace leukocytes. Follow up in one week for BCG #6. Follow-up With When Contact Information BARB RAMIREZ, Tonia Vasquez, URL [facility] [address] [place] [phone] Additional Instructions: BCG #6/6 on 10/22/22 with ANA M Patient Education Bladder Cancer ILisset, personally scribed for Dr. Devries on 10/14/2022 10:19:35. . Documentation recorded by the scribLisset kilgore, accurately reflects the services(s) I performed and decisions made by me. Authenticated by Dr. Devries on 10/14/2022 10:20:26. Problem List/Past Medical History Ongoing Bladder cancer BPH (benign prostatic hyperplasia) Elevated PSA Family history of prostate cancer Impotence Kidney stone Nocturia Proteinuria Historical No qualifying data Procedure/Surgical History TURBT - Transurethral resection of bladder tumor (07/18/2022), Arthroplasty of knee (2021), Cystoscopy (10/15/2013), Transrectal biopsy of prostate using ultrasound (US) guidance, Transrectal biopsy of prostate using ultrasound (US) guidance. Medications Myrbetriq 50 mg oral tablet, extended release, 50 mg= 1 tab(s), Oral, Daily, 3 refills Allergies No Known Allergies Social History Tobacco 10 or more cigarettes (1/2 pack or more)/day in last 30 days Tobacco Use:. Never Smokeless Tobacco Use:. Cigarettes, Ready to change: No. Household tobacco concerns: No., 10/14/2022 Family History Prostate cancer: Father. Immunizations Vaccine Date Status BCG 10/14/2022 Given BCG 10/14/2022 Given BCG 10/08/2022 Given BCG 09/17/2022 Given BCG 09/10/2022 Given BCG 09/03/2022 Given BCG 08/27/2022 Given SARS-CoV-2 (COVID-19) mRNA BNT-162b2 vax 02/28/2021 Recorded SARS-CoV-2 (COVID-19) mRNA BNT-162b2 vax 09/01/2020 Recorded SARS-CoV-2 (COVID-19) mRNA BNT-162b2 vax 08/11/2020 Recorded Lab Results Ambulatory Point of Care Results Bilirubin Urine Dipstick: Negative (10/14/22 09:52:00) Blood Urine Dipstick: Trace-lysed (10/14/22 09:52:00) Glucose Urine Dipstick: Negative (10/14/22 09:52:00) Ketones Urine Dipstick: Negative (10/14/22 09:52:00) Leukocytes Urine Dipstick: Trace (10/14/22 09:52:00) Nitrite Urine Dipstick: Negative (10/14/22 09:52:00) Protein Urine Dipstick: Negative (10/14/22 09:52:00) Specific Lyme Urine Dipstick: 1.020 (10/14/22 09:52:00) Urine Appearance Urine Dipstick: Clear (10/14/22 09:52:00) Urine Color Urine Dipstick: Yellow (10/14/22 09:52:00) Urobilinogen Urine Dipstick: Normal 0.2-1 EU (more content not included)... Normal [facility] Comment on above: Result Comment: Elec tronically Signed By: Tonia DEVRIES MD\.br\Date and Time Signed: 10/14/22 10:20 EDT\.br\Electronically Co-Signed By: Lisset Paul\.br\Date and Time Co-Signed: 10/14/22 10:19 EDT Patient Educationon 10-09-19 Patient Education Oncology Bladder Cancer Bladder cancer is a condition where abnormal tissue (a tumor) grows in the bladder. The bladder is the organ that holds urine. Two tubes (ureters) carry urine from the kidneys to the bladder. The bladder wall is made of layers of tissue. Cancer that spreads through these layers of the bladder wall becomes more difficult to treat. What increases the risk? The following factors may make you more likely to develop this condition: ? Smoking. ? Working where there are risks (occupational exposures), such as working with rubber, leather, clothing fabric, dyes, chemicals, or paint. ? Being 55 years of age or older. ? Being male. ? Having long-term bladder inflammation. ? Having a history of cancer. This includes: ? A family history of bladder cancer. ? Having had bladder cancer before. ? Having had certain treatments for cancer before, such as: ? Medicines to kill cancer cells (chemotherapy). ? Strong X-ray beams or high-energy capsules to kill cancer cells and shrink tumors (radiation therapy). ? Having been exposed to arsenic. This is a poisonous substance. What are the signs or symptoms? Early symptoms of this condition include: ? Blood in your urine. ? Pain when urinating. ? Infections of your urinary system (urinary tract infections or UTIs) that happen often. ? Having to urinate sooner or more often than normal. Late symptoms of this condition include: ? Not being able to urinate. ? Pain on one side of your lower back. ? Loss of appetite. ? Weight loss. ? Tiredness (fatigue). ? Swelling in your feet. ? Bone pain. How is this diagnosed? This condition is diagnosed based on: ? Your medical history. ? A physical exam. ? Lab tests, such as urine tests. ? Imaging tests. ? Your symptoms. You may also have other tests or procedures, such as: ? A cystoscopy. This involves putting a narrow tube into your urethra. The urethra is the organ that carries urine from your bladder to the outside of your body. This procedure is done to view the lining of your bladder for tumors. ? A biopsy. This involves removing a tissue sample to look at under a microscope to check for cancer. Blood tests or imaging tests may be needed. These show how far into the bladder wall cancer has grown, and if cancer has spread to any other parts of your body. Tests may include: ? CT scan. ? MRI. ? Bone scan. ? X-ray. How is this treated? Your health care provider may recommend one or more types of treatment based on the stage of your cancer. The most common treatments are: ? Surgery to remove the cancer. Types of surgeries include: ? Removing a tumor on the inside wall of the bladder (transurethral resection). ? Removing the bladder (cystectomy). ? Radiation therapy. This is often combined with chemotherapy. ? Chemotherapy. ? Immunotherapy. This uses medicines to help your body's disease-fighting system (immune system) destroy cancer cells. Follow these instructions at home: ? Take fkqm-yoz-oeskdjw and prescription medicines only as told by your health care provider. ? If you were prescribed an antibiotic medicine, take it as told by your health care provider. Do not stop using the antibiotic even if you start to feel better. ? Eat a healthy diet. Some treatments might affect your appetite. ? Do not use any products that contain nicotine or tobacco. These products include cigarettes, chewing tobacco, and vaping devices, such as e-cigarettes. If you need help quitting, ask your health care provider. ? Consider joining a support group. This may help you learn to deal with the stress of having bladder cancer. ? Tell your cancer care team if you develop side effects. Your team may be able to recommend ways to get relief. ? Keep all follow-up visits. This is important. Where to find more information ? [place] [employer] (ACS): cancer.org ? National Cancer [place] (NCI): cancer.gov Contact a health care provider if: ? You have symptoms of a UTI. These include: ? Fever. ? Chills. ? Weakness. ? Muscle aches. ? Pain in your abdomen. ? Urge to urinate that is stronger and happens more often than normal. ? Burning in the bladder or urethra when you urinate. Get help right away if: ? There is blood in your urine. ? You cannot urinate. ? You have severe pain or other symptoms that do not go away. Summary ? Bladder cancer is a condition where tumors grow in the bladder. ? Diagnosis is based on your medical history, a physical exam, lab tests, imaging tests, and your symptoms. ? Your health care provider may recommend one or more types of treatment based on the stage of your cancer. ? Consider joining a support group. This may help you learn to deal with the stress of having bladder cancer. This information is not intended to replace advice given to you by your health care provider. Make sure you discuss any questions you have wi (more content not included)... Normal [facility] Urology Office/Clinic Noteon 10-08-2022 Urology Office/Clinic Note Chief Complaint BCG #4 of 6 (1/2 dose) HPI Staff PRW pt Pt is here today for BCG #4 of 6 for Tx of Bladder Cancer. Additional DX: Elevated PSA, Nocturia, Kidney Stone & Impotence. *Myrbetriq 50mg QD. Pt states he is no longer taking the Cialis therapy.If he waits too long to void after getting the urge, he gets a pain in his lower S/P area. Denies pain/burning and visible blood in urine. History of Present Illness staff HPI reviewed and agree. Review of Systems PHQ Score Initial Depression Screen Score: 0 no fever, chills, malaise, myalgia. no rash/lesions. no chest pain, palpitations, or SOB. no abdominal pain, nausea, vomiting. no unilateral calf swelling, redness, pain Physical Exam Vitals & Measurements HR: 80(Peripheral) RR: 16 BP: 130/80 HT: 72 in HT: 182 cm WT: 85 kg WT: 187 lb BMI: 25.66 General: nontoxic, NAD Mouth: moist mucosa Lungs: normal respiratory effort Cardio: regular rate, good distal perfusion Abdomen: nondistended, no suprapubic distention or tenderness, no CVA tenderness Neurologic: Grossly normal Skin: No rashes or suspicious lesions Procedure The patient was placed in the appropriate position and under sterile conditions, the urethra is catheterized with a 14 Fr straight catheter and the bladder is emptied. 35 cc of sterile 0.9 NS with one half vial of RHONDA BCG was placed into the bladder and the straight catheter was removed. The patient will hold the solution in the bladder for two hours, turning every fifteen minutes 1/4 turn to allow coating of the bladder surface. The patient should call the office or present to the Emergency Department for development of fever, chills, or flu-like symptoms. Symptoms such as urinary frequency, urgency, and other bladder irritation symptoms are expected. Assessment/Plan 1. Bladder cancer (C67.9: Malignant neoplasm of bladder, unspecified) Patient received BCG #4 of 6 today without complications, tolerated well. UA today - TRACE-INTACT blood, trace RUSSELL Patient received 1/2 dose BCG today due to national shortage. EORTC 66469 trial showed no difference between 1/3 dose and full-dose BCG in patients with high-risk disease. Patient is aware of the reasoning and is amenable to proceed as discussed. Follow up in one week for BCG #5 Follow-up With When Contact Information BARB RAMIREZ, Tonia Vasquez, URL [facility] [place] [id number]- Additional Instructions: one week for BCG #5 Patient Education Bladder Cancer Documentation recorded by the nolan Kraft accurately reflects the services(s) I performed and decisions made by me. Authenticated by Yahaira Long PA-C on 10/08/2022 10:00:13. IBecka, personally scribed for Yahaira Long PA-C on 10/08/2022 09:19:12. . Problem List/Past Medical History Ongoing Bladder cancer BPH (benign prostatic hyperplasia) Elevated PSA Family history of prostate cancer Impotence Kidney stone Nocturia Proteinuria Historical No qualifying data Procedure/Surgical History TURBT - Transurethral resection of bladder tumor (07/18/2022), Arthroplasty of knee (2021), Cystoscopy (10/15/2013), Transrectal biopsy of prostate using ultrasound (US) guidance, Transrectal biopsy of prostate using ultrasound (US) guidance. Medications Myrbetriq 50 mg oral tablet, extended release, 50 mg= 1 tab(s), Oral, Daily, 3 refills Allergies No Known Allergies Social History Tobacco 10 or more cigarettes (1/2 pack or more)/day in last 30 days Tobacco Use:. Never Smokeless Tobacco Use:. Cigarettes, Ready to change: No. Household tobacco concerns: No., 10/08/2022 Family History Prostate cancer: Father. Immunizations Vaccine Date Status BCG 09/17/2022 Given BCG 09/10/2022 Given BCG 09/03/2022 Given BCG 08/27/2022 Given SARS-CoV-2 (COVID-19) mRNA BNT-162b2 vax 02/28/2021 Recorded SARS-CoV-2 (COVID-19) mRNA BNT-162b2 vax 09/01/2020 Recorded SARS-CoV-2 (COVID-19) mRNA BNT-162b2 vax 08/11/2020 Recorded Lab Results Ambulatory Point of Care Results Bilirubin Urine Dipstick: Negative (10/08/22 09:05:00) Blood Urine Dipstick: Trace-intact (10/08/22 09:05:00) Glucose Urine Dipstick: Negative (10/08/22 09:05:00) Ketones Urine Dipstick: Negative (10/08/22 09:05:00) Leukocytes Urine Dipstick: Trace (10/08/22 09:05:00) Nitrite Urine Dipstick: Negative (10/08/22 09:05:00) Protein Urine Dipstick: Negative (10/08/22 09:05:00) Specific Lyme Urine Dipstick: 1.025 (10/08/22 09:05:00) Urine Appearance Urine Dipstick: Clear (10/08/22 09:05:00) Urine Color Urine Dipstick: Yellow (10/08/22 09:05:00) Urobilinogen Urine Dipstick: Normal 0.2-1 EU/dl (10/08/22 09:05:00) pH Urine Dipstick: 6 (10/08/22 09:05:00) Normal [facility] Comment on above: Result Comment: Elec tronically Signed By: YAHAIRA LONG PA-C\.br\Date and Time Signed: 10/08/22 10:00 EDT\.br\Electronically Co-Signed By: Becka Kraft.cristobal\Date and Time Co-Signed: 10/08/22 09:19 EDT Ambulatory Visit Summaryon 0 09-17-2022 Ambulatory Visit Summary DARIAN DUENAS :1955 Visit Date:09/17/2022 Ambulatory Visit Instructions Your Diagnosis Bladder cancer Tests Performed Urnls Dip Stick Auto w/o Microscopy POC [id number] Your Care Team Attending Physician - YAHAIRA LONG PA-C Primary Care Physician - CATRACHO WILLIS MD This Is Your Medications List Contact prescribing physician if questions or concerns mirabegron (Myrbetriq 50 mg oral tablet, extended release) tadalafil (Cialis 10 mg Tab) Procedures Performed TURBT - Transurethral resection of bladder tumor (07/18/2022), Arthroplasty of knee (2021), Cystoscopy (10/15/2013), Transrectal biopsy of prostate using ultrasound (US) guidance, Transrectal biopsy of prostate using ultrasound (US) guidance. Discharge Vitals Heart Rate (Peripheral) 80 Respiratory Rate 16 Blood Pressure 128/74 Height 182 cm Height 72 in Weight 85 kg Weight 187 lb BMI 25.66 What to do next Scheduled Follow-Up Appointments Friday 12:15 PM EDT With: Tonia DEVRIES MD Where: [facility] Invalid Interpretation Code [address] [place] [address] [place] [address]- \.br\ Friday 10:45 AM EDT \.br\ With: Tonia DEVRIES MD\.br\ Where: [facility] Patient Educationon 09-18-19 23 Patient Education Oncology Bladder Cancer Bladder cancer is a condition where abnormal tissue (a tumor) grows in the bladder. The bladder is the organ that holds urine. Two tubes (ureters) carry urine from the kidneys to the bladder. The bladder wall is made of layers of tissue. Cancer that spreads through these layers of the bladder wall becomes more difficult to treat. What increases the risk? The following factors may make you more likely to develop this condition: ? Smoking. ? Working where there are risks (occupational exposures), such as working with rubber, leather, clothing fabric, dyes, chemicals, or paint. ? Being 55 years of age or older. ? Being male. ? Having long-term bladder inflammation. ? Having a history of cancer. This includes: ? A family history of bladder cancer. ? Having had bladder cancer before. ? Having had certain treatments for cancer before, such as: ? Medicines to kill cancer cells (chemotherapy). ? Strong X-ray beams or high-energy capsules to kill cancer cells and shrink tumors (radiation therapy). ? Having been exposed to arsenic. This is a poisonous substance. What are the signs or symptoms? Early symptoms of this condition include: ? Blood in your urine. ? Pain when urinating. ? Infections of your urinary system (urinary tract infections or UTIs) that happen often. ? Having to urinate sooner or more often than normal. Late symptoms of this condition include: ? Not being able to urinate. ? Pain on one side of your lower back. ? Loss of appetite. ? Weight loss. ? Tiredness (fatigue). ? Swelling in your feet. ? Bone pain. How is this diagnosed? This condition is diagnosed based on: ? Your medical history. ? A physical exam. ? Lab tests, such as urine tests. ? Imaging tests. ? Your symptoms. You may also have other tests or procedures, such as: ? A cystoscopy. This involves putting a narrow tube into your urethra. The urethra is the organ that carries urine from your bladder to the outside of your body. This procedure is done to view the lining of your bladder for tumors. ? A biopsy. This involves removing a tissue sample to look at under a microscope to check for cancer. Blood tests or imaging tests may be needed. These show how far into the bladder wall cancer has grown, and if cancer has spread to any other parts of your body. Tests may include: ? CT scan. ? MRI. ? Bone scan. ? X-ray. How is this treated? Your health care provider may recommend one or more types of treatment based on the stage of your cancer. The most common treatments are: ? Surgery to remove the cancer. Types of surgeries include: ? Removing a tumor on the inside wall of the bladder (transurethral resection). ? Removing the bladder (cystectomy). ? Radiation therapy. This is often combined with chemotherapy. ? Chemotherapy. ? Immunotherapy. This uses medicines to help your body's disease-fighting system (immune system) destroy cancer cells. Follow these instructions at home: ? Take zptf-idj-upkhvhi and prescription medicines only as told by your health care provider. ? If you were prescribed an antibiotic medicine, take it as told by your health care provider. Do not stop using the antibiotic even if you start to feel better. ? Eat a healthy diet. Some treatments might affect your appetite. ? Do not use any products that contain nicotine or tobacco. These products include cigarettes, chewing tobacco, and vaping devices, such as e-cigarettes. If you need help quitting, ask your health care provider. ? Consider joining a support group. This may help you learn to deal with the stress of having bladder cancer. ? Tell your cancer care team if you develop side effects. Your team may be able to recommend ways to get relief. ? Keep all follow-up visits. This is important. Where to find more information ? [place] [employer] (ACS): cancer.org ? National Cancer [place] (NCI): cancer.gov Contact a health care provider if: ? You have symptoms of a UTI. These include: ? Fever. ? Chills. ? Weakness. ? Muscle aches. ? Pain in your abdomen. ? Urge to urinate that is stronger and happens more often than normal. ? Burning in the bladder or urethra when you urinate. Get help right away if: ? There is blood in your urine. ? You cannot urinate. ? You have severe pain or other symptoms that do not go away. Summary ? Bladder cancer is a condition where tumors grow in the bladder. ? Diagnosis is based on your medical history, a physical exam, lab tests, imaging tests, and your symptoms. ? Your health care provider may recommend one or more types of treatment based on the stage of your cancer. ? Consider joining a support group. This may help you learn to deal with the stress of having bladder cancer. This information is not intended to replace advice given to you by your health care provider. Make sure you discuss any questions you have wi (more content not included)... Normal [facility] Urology Office/Clinic Noteon 09-17-2022 Urology Office/Clinic Note Chief Complaint BCG #3 of 6 HPI Staff PRW pt Pt is here today for BCG #3 of 6 for Tx of Bladder Cancer. Additional DX: Elevated PSA, Nocturia, Kidney Stone & Impotence. *Myrbetriq 50mg QD. Pt states he is no longer taking the Cialis therapy. Legs from knees down have been feeling stiff. Thinks it started just before or just after first BCG Tx. States ANA M told him if he ever has hard time walking after Tx he needs to go to ER. Pt is concerned if BCG is causing the pain. Does have an appt with Ortho 09/25. Denies urinary problems. Urge has backed off, but when he has to go, he has to go. Denies pain/burning & blood in urine. History of Present Illness staff HPI reviewed and agree. Review of Systems PHQ Score Initial Depression Screen Score: 0 no fever, chills, malaise, myalgia. no rash/lesions. no chest pain, palpitations, or SOB. no abdominal pain, nausea, vomiting. no unilateral calf swelling, redness, pain Physical Exam Vitals & Measurements HR: 80(Peripheral) RR: 16 BP: 128/74 HT: 72 in HT: 182 cm WT: 85 kg WT: 187 lb BMI: 25.66 General: nontoxic, NAD Mouth: moist mucosa Lungs: normal respiratory effort Cardio: regular rate, good distal perfusion Abdomen: nondistended, no suprapubic distention or tenderness, no CVA tenderness Neurologic: Grossly normal Skin: No rashes or suspicious lesions Procedure The patient was placed in the appropriate position and under sterile conditions, the urethra is catheterized with a 14 Fr straight catheter and the bladder is emptied. 50 cc of sterile 0.9 NS with one half vial of RHONDA BCG was placed into the bladder and the straight catheter was removed. The patient will hold the solution in the bladder for two hours, turning every fifteen minutes 1/4 turn to allow coating of the bladder surface. The patient should call the office or present to the Emergency Department for development of fever, chills, or flu-like symptoms. Symptoms such as urinary frequency, urgency, and other bladder irritation symptoms are expected. Assessment/Plan 1. Bladder cancer (C67.9: Malignant neoplasm of bladder, unspecified) Pt received BCG #3 today. UA today shows blood and leuks but pt remains asx. Pt received 1/2 dose BCG today due to national shortage. EORTC 86375 trial showed no difference between 1/3 dose and full-dose BCG in patients with high-risk disease. Pt is aware of the reasoning and is amenable to proceed as discussed. Pt will come back in 1 wk for BCG #4 or sooner if needed. Follow-up With When Contact Information YAHAIRA LONG PA-C, URL In 1 week [address] [place] [address] Additional Instructions: Sched BCG #4 Patient Education Bladder Cancer Documentation recorded by the scriblexx Mojica accurately reflects the services(s) I performed and decisions made by me. Authenticated by Yahaira Long PA-C on 09/17/2022 10:00:45. I, Adrienne Mojica, personally scribed for Yahaira Long PA-C on 09/17/2022 09:39:01. . Problem List/Past Medical History Ongoing Bladder cancer BPH (benign prostatic hyperplasia) Elevated PSA Family history of prostate cancer Impotence Kidney stone Nocturia Proteinuria Historical No qualifying data Procedure/Surgical History TURBT - Transurethral resection of bladder tumor (07/18/2022), Arthroplasty of knee (2021), Cystoscopy (10/15/2013), Transrectal biopsy of prostate using ultrasound (US) guidance, Transrectal biopsy of prostate using ultrasound (US) guidance. Medications Cialis 10 mg Tab, 10 mg= 1 tab(s), Oral, Daily, PRN, 3 refills, Not taking Myrbetriq 50 mg oral tablet, extended release, 50 mg= 1 tab(s), Oral, Daily, 3 refills [place] BCG Live (for intravesical use), 25 mg, IntraVesical, Once Allergies No Known Allergies Social History Tobacco 10 or more cigarettes (1/2 pack or more)/day in last 30 days Tobacco Use:. Never Smokeless Tobacco Use:. Cigarettes, Ready to change: No. Household tobacco concerns: No., 09/17/2022 Family History Prostate cancer: Father. Immunizations Vaccine Date Status BCG 09/10/2022 Given BCG 09/03/2022 Given BCG 08/27/2022 Given SARS-CoV-2 (COVID-19) mRNA BNT-162b2 vax 02/28/2021 Recorded SARS-CoV-2 (COVID-19) mRNA BNT-162b2 vax 09/01/2020 Recorded SARS-CoV-2 (COVID-19) mRNA BNT-162b2 vax 08/11/2020 Recorded Lab Results Ambulatory Point of Care Results Bilirubin Urine Dipstick: Negative (09/17/22 09:10:00) Blood Urine Dipstick: 2+ Moderate (09/17/22 09:10:00) Glucose Urine Dipstick: Negative (09/17/22 09:10:00) Ketones Urine Dipstick: Negative (09/17/22 09:10:00) Leukocytes Urine Dipstick: 1+ Small (09/17/22 09:10:00) Nitrite Urine Dipstick: Negative (09/17/22 09:10:00) Protein Urine Dipstick: 1+ (30 mg/dl) (09/17/22 09:10:00) Specific Lyme Urine Dipstick: 1.025 (09/17/22 09:10:00) Urine Appearance Urine Dipstick: Clear (09/17/22 09:10:00) Urine Color (more content not included)... Normal [facility] Comment on above: Result Comment: Elec tronically Signed By: YAHAIRA LONG PA-C\.br\Date and Time Signed: 09/17/22 10:01 EDT\.br\Electronically Co-Signed By: Adrienne Mojica\.br\Date and Time Co-Signed: 09/17/22 09:39 EDT Ambulatory Visit Summaryon 0 09-10-2022 Ambulatory Visit Summary DARIAN DUENAS :1955 Visit Date:09/10/2022 Ambulatory Visit Instructions Your Diagnosis Bladder cancer Tests Performed Urnls Dip Stick Auto w/o Microscopy POC 36010 Your Care Team Attending Physician - YHAAIRA LONG PA-C Primary Care Physician - CATRACHO WILLIS MD This Is Your Medications List Contact prescribing physician if questions or concerns mirabegron (Myrbetriq 50 mg oral tablet, extended release) tadalafil (Cialis 10 mg Tab) Procedures Performed TURBT - Transurethral resection of bladder tumor (07/18/2022), Arthroplasty of knee (2021), Cystoscopy (10/15/2013), Transrectal biopsy of prostate using ultrasound (US) guidance, Transrectal biopsy of prostate using ultrasound (US) guidance. Discharge Vitals Heart Rate (Peripheral) 66 Blood Pressure 127/70 Height 182 cm Height 72 in Weight 85 kg Weight 187 lb BMI 25.66 What to do next Scheduled Follow-Up Appointments Friday 8:45 AM EDT With: YAHAIRA LONG PA-C Where: [facility] Invalid Interpretation Code [address] [place] [address] [place] [address]- \.br\ Friday 8:45 AM EDT \.br\ With: YAHAIRA LONG PA-C\.br\ Where: [facility] Patient Educationon 09-11-19 Patient Education Oncology Bladder Cancer Bladder cancer is a condition where abnormal tissue (a tumor) grows in the bladder. The bladder is the organ that holds urine. Two tubes (ureters) carry urine from the kidneys to the bladder. The bladder wall is made of layers of tissue. Cancer that spreads through these layers of the bladder wall becomes more difficult to treat. What increases the risk? The following factors may make you more likely to develop this condition: ? Smoking. ? Working where there are risks (occupational exposures), such as working with rubber, leather, clothing fabric, dyes, chemicals, or paint. ? Being 55 years of age or older. ? Being male. ? Having long-term bladder inflammation. ? Having a history of cancer. This includes: ? A family history of bladder cancer. ? Having had bladder cancer before. ? Having had certain treatments for cancer before, such as: ? Medicines to kill cancer cells (chemotherapy). ? Strong X-ray beams or high-energy capsules to kill cancer cells and shrink tumors (radiation therapy). ? Having been exposed to arsenic. This is a poisonous substance. What are the signs or symptoms? Early symptoms of this condition include: ? Blood in your urine. ? Pain when urinating. ? Infections of your urinary system (urinary tract infections or UTIs) that happen often. ? Having to urinate sooner or more often than normal. Late symptoms of this condition include: ? Not being able to urinate. ? Pain on one side of your lower back. ? Loss of appetite. ? Weight loss. ? Tiredness (fatigue). ? Swelling in your feet. ? Bone pain. How is this diagnosed? This condition is diagnosed based on: ? Your medical history. ? A physical exam. ? Lab tests, such as urine tests. ? Imaging tests. ? Your symptoms. You may also have other tests or procedures, such as: ? A cystoscopy. This involves putting a narrow tube into your urethra. The urethra is the organ that carries urine from your bladder to the outside of your body. This procedure is done to view the lining of your bladder for tumors. ? A biopsy. This involves removing a tissue sample to look at under a microscope to check for cancer. Blood tests or imaging tests may be needed. These show how far into the bladder wall cancer has grown, and if cancer has spread to any other parts of your body. Tests may include: ? CT scan. ? MRI. ? Bone scan. ? X-ray. How is this treated? Your health care provider may recommend one or more types of treatment based on the stage of your cancer. The most common treatments are: ? Surgery to remove the cancer. Types of surgeries include: ? Removing a tumor on the inside wall of the bladder (transurethral resection). ? Removing the bladder (cystectomy). ? Radiation therapy. This is often combined with chemotherapy. ? Chemotherapy. ? Immunotherapy. This uses medicines to help your body's disease-fighting system (immune system) destroy cancer cells. Follow these instructions at home: ? Take cnqv-rnc-lsxkqkq and prescription medicines only as told by your health care provider. ? If you were prescribed an antibiotic medicine, take it as told by your health care provider. Do not stop using the antibiotic even if you start to feel better. ? Eat a healthy diet. Some treatments might affect your appetite. ? Do not use any products that contain nicotine or tobacco. These products include cigarettes, chewing tobacco, and vaping devices, such as e-cigarettes. If you need help quitting, ask your health care provider. ? Consider joining a support group. This may help you learn to deal with the stress of having bladder cancer. ? Tell your cancer care team if you develop side effects. Your team may be able to recommend ways to get relief. ? Keep all follow-up visits. This is important. Where to find more information ? [place] [employer] (ACS): cancer.org ? National Cancer [place] (NCI): cancer.gov Contact a health care provider if: ? You have symptoms of a UTI. These include: ? Fever. ? Chills. ? Weakness. ? Muscle aches. ? Pain in your abdomen. ? Urge to urinate that is stronger and happens more often than normal. ? Burning in the bladder or urethra when you urinate. Get help right away if: ? There is blood in your urine. ? You cannot urinate. ? You have severe pain or other symptoms that do not go away. Summary ? Bladder cancer is a condition where tumors grow in the bladder. ? Diagnosis is based on your medical history, a physical exam, lab tests, imaging tests, and your symptoms. ? Your health care provider may recommend one or more types of treatment based on the stage of your cancer. ? Consider joining a support group. This may help you learn to deal with the stress of having bladder cancer. This information is not intended to replace advice given to you by your health care provider. Make sure you discuss any questions you have wi (more content not included)... Normal [facility] Urology Office/Clinic Noteon 09-10-2022 Urology Office/Clinic Note Chief Complaint BCG #2 of 6 HPI Staff PRW pt Pt is here today for BCG #2 of 6 for Tx of Bladder Cancer. Additional DX: Elevated PSA, Nocturia, Kidney Stone & Impotence. *Myrbetriq 50mg QD. Pt states he is no longer taking the Cialis therapy. Denies any complaints after last BCG Tx. Tingling with urination subsided since BCG Tx's have started. History of Present Illness staff HPI reviewed and agree. Review of Systems PHQ Score Initial Depression Screen Score: 0 no fever, chills, malaise, myalgia. no rash/lesions. no chest pain, palpitations, or SOB. no abdominal pain, nausea, vomiting. no unilateral calf swelling, redness, pain Physical Exam Vitals & Measurements HR: 66(Peripheral) BP: 127/70 HT: 72 in HT: 182 cm WT: 85 kg WT: 187 lb BMI: 25.66 General: nontoxic, NAD Mouth: moist mucosa Lungs: normal respiratory effort Cardio: regular rate, good distal perfusion Abdomen: nondistended, no suprapubic distention or tenderness, no CVA tenderness Neurologic: Grossly normal Skin: No rashes or suspicious lesions Assessment/Plan 1. Bladder cancer (C67.9: Malignant neoplasm of bladder, unspecified) Postponed BCG #1 due to urinary sx. Cx ended up being negative. Received BCG #1 last week. Sx are unchanged. UA unchanged. Ok to proceed today w BCG #2. The patient was placed in the appropriate position and under sterile conditions, the urethra is catheterized with a 14 Fr straight catheter and the bladder is emptied. 50 cc of sterile 0.9 NS with one HALF vial of RHONDA BCG was placed into the bladder and the straight catheter was removed. The patient will hold the solution in the bladder for two hours, turning every fifteen minutes 1/4 turn to allow coating of the bladder surface. The patient should call the office or present to the Emergency Department for development of fever, chills, or flu-like symptoms. Symptoms such as urinary frequency, urgency, and other bladder irritation symptoms are expected. Pt received 1/2 dose BCG today due to national shortage. EORTC 93503 trial showed no difference between 1/3 dose and full-dose BCG in patients with high-risk disease. Pt is aware of the reasoning and is amenable to proceed as discussed. Ordered: BCG, 25 mg, IntraVesical, Once, Stop date 09/10/22 9:01:00 EDT, Routine, Start date 09/10/22 9:01:00 EDT, 09/10/22 9:01:00 EDT Office Visit No Charge Urnls Dip Stick Auto w/o Microscopy POC 46325 Follow-up With When Contact Information [facility] [address] [place] [address] Business (1) Additional Instructions: for procedure as scheduled Patient Education Bladder Cancer Problem List/Past Medical History Ongoing Bladder cancer BPH (benign prostatic hyperplasia) Elevated PSA Family history of prostate cancer Impotence Kidney stone Nocturia Proteinuria Historical No qualifying data Procedure/Surgical History TURBT - Transurethral resection of bladder tumor (07/18/2022), Arthroplasty of knee (2021), Cystoscopy (10/15/2013), Transrectal biopsy of prostate using ultrasound (US) guidance, Transrectal biopsy of prostate using ultrasound (US) guidance. Medications Cialis 10 mg Tab, 10 mg= 1 tab(s), Oral, Daily, PRN, 3 refills, Not taking: does not take Myrbetriq 50 mg oral tablet, extended release, 50 mg= 1 tab(s), Oral, Daily, 11 refills Allergies No Known Allergies Social History Tobacco 10 or more cigarettes (1/2 pack or more)/day in last 30 days Tobacco Use:. Never Smokeless Tobacco Use:. Cigarettes, Household tobacco concerns: No., 09/10/2022 Family History Prostate cancer: Father. Immunizations Vaccine Date Status BCG 09/10/2022 Given BCG 09/03/2022 Given BCG 08/27/2022 Given SARS-CoV-2 (COVID-19) mRNA BNT-162b2 vax 02/28/2021 Recorded SARS-CoV-2 (COVID-19) mRNA BNT-162b2 vax 09/01/2020 Recorded SARS-CoV-2 (COVID-19) mRNA BNT-162b2 vax 08/11/2020 Recorded Lab Results Ambulatory Point of Care Results Bilirubin Urine Dipstick: Negative (09/10/22 08:47:00) Blood Urine Dipstick: 3+ Large (09/10/22 08:47:00) Glucose Urine Dipstick: Negative (09/10/22 08:47:00) Ketones Urine Dipstick: Negative (09/10/22 08:47:00) Leukocytes Urine Dipstick: 1+ Small (09/10/22 08:47:00) Nitrite Urine Dipstick: Negative (09/10/22 08:47:00) Protein Urine Dipstick: 2+ (100 mg/dl) (09/10/22 08:47:00) Specific Lyme Urine Dipstick: >=1.030 (09/10/22 08:47:00) Urine Appearance Urine Dipstick: Clear (09/10/22 08:47:00) Urine Color Urine Dipstick: Yellow (09/10/22 08:47:00) Urobilinogen Urine Dipstick: Normal 0.2-1 EU/dl (09/10/22 08:47:00) pH Urine Dipstick: 5.5 (09/10/22 08:47:00) Normal [facility] Comment on above: Result Comment: Elec tronically Signed By: ETHAN VILLALTA, YAHAIRA Kilgore\.br\Date and Time Signed: 09/10/22 09:37 EDT Ambulatory Visit Summaryon 0 09-03-2022 Ambulatory Visit Summary DARIAN DUENAS :1955 Visit Date:09/03/2022 Ambulatory Visit Instructions Your Diagnosis Bladder cancer Tests Performed Urnls Dip Stick Auto w/o Microscopy POC 19659 Your Care Team Attending Physician - YAHAIRA LONG PA-C Primary Care Physician - CATRACHO WILLIS MD This Is Your Medications List Contact prescribing physician if questions or concerns mirabegron (Myrbetriq 50 mg oral tablet, extended release) tadalafil (Cialis 10 mg Tab) [Image Removed: STOP]Stop taking these medications sulfamethoxazole-tri methoprim (Bactrim D.S. 800 mg-160 mg Tab) Procedures Performed TURBT - Transurethral resection of bladder tumor (07/18/2022), Arthroplasty of knee (2021), Cystoscopy (10/15/2013), Transrectal biopsy of prostate using ultrasound (US) guidance, Transrectal biopsy of prostate using ultrasound (US) guidance. Discharge Vitals Heart Rate (Peripheral) 68 Respiratory Rate 16 Blood Pressure 128/74 Height 182 cm Height 72 in Weight 85 kg Weight 187 lb BMI 25.66 What to do next Scheduled Follow-Up Appointments Friday 8:45 AM EDT With: YAHAIRA LONG PA-C Where: [facility] Invalid Interpretation Code [address] [place] [address]- \.br\ Friday 8:45 AM EDT \.br\ With: YAHAIRA LONG PA-C\.br\ Where: [facility] Patient Educationon 09-04-19 23 Patient Education Oncology Bladder Cancer Bladder cancer is a condition where abnormal tissue (a tumor) grows in the bladder. The bladder is the organ that holds urine. Two tubes (ureters) carry urine from the kidneys to the bladder. The bladder wall is made of layers of tissue. Cancer that spreads through these layers of the bladder wall becomes more difficult to treat. What increases the risk? The following factors may make you more likely to develop this condition: ? Smoking. ? Working where there are risks (occupational exposures), such as working with rubber, leather, clothing fabric, dyes, chemicals, or paint. ? Being 55 years of age or older. ? Being male. ? Having long-term bladder inflammation. ? Having a history of cancer. This includes: ? A family history of bladder cancer. ? Having had bladder cancer before. ? Having had certain treatments for cancer before, such as: ? Medicines to kill cancer cells (chemotherapy). ? Strong X-ray beams or high-energy capsules to kill cancer cells and shrink tumors (radiation therapy). ? Having been exposed to arsenic. This is a poisonous substance. What are the signs or symptoms? Early symptoms of this condition include: ? Blood in your urine. ? Pain when urinating. ? Infections of your urinary system (urinary tract infections or UTIs) that happen often. ? Having to urinate sooner or more often than normal. Late symptoms of this condition include: ? Not being able to urinate. ? Pain on one side of your lower back. ? Loss of appetite. ? Weight loss. ? Tiredness (fatigue). ? Swelling in your feet. ? Bone pain. How is this diagnosed? This condition is diagnosed based on: ? Your medical history. ? A physical exam. ? Lab tests, such as urine tests. ? Imaging tests. ? Your symptoms. You may also have other tests or procedures, such as: ? A cystoscopy. This involves putting a narrow tube into your urethra. The urethra is the organ that carries urine from your bladder to the outside of your body. This procedure is done to view the lining of your bladder for tumors. ? A biopsy. This involves removing a tissue sample to look at under a microscope to check for cancer. Blood tests or imaging tests may be needed. These show how far into the bladder wall cancer has grown, and if cancer has spread to any other parts of your body. Tests may include: ? CT scan. ? MRI. ? Bone scan. ? X-ray. How is this treated? Your health care provider may recommend one or more types of treatment based on the stage of your cancer. The most common treatments are: ? Surgery to remove the cancer. Types of surgeries include: ? Removing a tumor on the inside wall of the bladder (transurethral resection). ? Removing the bladder (cystectomy). ? Radiation therapy. This is often combined with chemotherapy. ? Chemotherapy. ? Immunotherapy. This uses medicines to help your body's disease-fighting system (immune system) destroy cancer cells. Follow these instructions at home: ? Take hzsn-hrr-qaqbqih and prescription medicines only as told by your health care provider. ? If you were prescribed an antibiotic medicine, take it as told by your health care provider. Do not stop using the antibiotic even if you start to feel better. ? Eat a healthy diet. Some treatments might affect your appetite. ? Do not use any products that contain nicotine or tobacco. These products include cigarettes, chewing tobacco, and vaping devices, such as e-cigarettes. If you need help quitting, ask your health care provider. ? Consider joining a support group. This may help you learn to deal with the stress of having bladder cancer. ? Tell your cancer care team if you develop side effects. Your team may be able to recommend ways to get relief. ? Keep all follow-up visits. This is important. Where to find more information ? [place] [employer] (ACS): cancer.org ? National Cancer [place] (NCI): cancer.gov Contact a health care provider if: ? You have symptoms of a UTI. These include: ? Fever. ? Chills. ? Weakness. ? Muscle aches. ? Pain in your abdomen. ? Urge to urinate that is stronger and happens more often than normal. ? Burning in the bladder or urethra when you urinate. Get help right away if: ? There is blood in your urine. ? You cannot urinate. ? You have severe pain or other symptoms that do not go away. Summary ? Bladder cancer is a condition where tumors grow in the bladder. ? Diagnosis is based on your medical history, a physical exam, lab tests, imaging tests, and your symptoms. ? Your health care provider may recommend one or more types of treatment based on the stage of your cancer. ? Consider joining a support group. This may help you learn to deal with the stress of having bladder cancer. This information is not intended to replace advice given to you by your health care provider. Make sure you discuss any questions you have wi (more content not included)... Normal [facility] Urology Office/Clinic Noteon 09-03-2022 Urology Office/Clinic Note Chief Complaint BCG #1 HPI Staff Pt is here today for BCG #1 of 6 for Tx of Bladder Cancer. Additional DX: Elevated PSA, Nocturia, Kidney Stone & Impotence. *Myrbetriq 50mg QD therapy. Pt was here last week, however he had dysuria, so urine was sent for C&S, and BCG was not given at that time. Pt was given Bactrim BID x7 days. NEG C&S Still having urgency. With minimal dribbling prior. Still having intermittent tingling feeling. Has noticed a slight improvement in the past couple of days. Does still have 3 pills of Bactrim left advised him he can dc this at this time since cx neg. Denies visible blood in urine. History of Present Illness staff HPI reviewed and agree. Review of Systems PHQ Score Initial Depression Screen Score: 0 no fever, chills, malaise, myalgia. no rash/lesions. no chest pain, palpitations, or SOB. no abdominal pain, nausea, vomiting. no unilateral calf swelling, redness, pain Physical Exam Vitals & Measurements HR: 68(Peripheral) RR: 16 BP: 128/74 HT: 72 in HT: 182 cm WT: 85 kg WT: 187 lb BMI: 25.66 General: nontoxic, NAD Mouth: moist mucosa Lungs: normal respiratory effort Cardio: regular rate, good distal perfusion Abdomen: nondistended, no suprapubic distention or tenderness, no CVA tenderness Neurologic: Grossly normal Skin: No rashes or suspicious lesions Assessment/Plan 1. Bladder cancer (C67.9: Malignant neoplasm of bladder, unspecified) Postponed last week's BCG tx due to urinary sx. Cx ended up being negative. Sx are unchanged. Ok to proceed today. Ok to dc abx. The patient was placed in the appropriate position and under sterile conditions, the urethra is catheterized with a 14 Fr straight catheter and the bladder is emptied. 30 cc of sterile 0.9 NS with one HALF vial of RHONDA BCG was placed into the bladder and the straight catheter was removed. The patient will hold the solution in the bladder for two hours, turning every fifteen minutes 1/4 turn to allow coating of the bladder surface. The patient should call the office or present to the Emergency Department for development of fever, chills, or flu-like symptoms. Symptoms such as urinary frequency, urgency, and other bladder irritation symptoms are expected. Pt received 1/2 dose BCG today due to national shortage. [employer] 01989 trial showed no difference between 1/3 dose and full-dose BCG in patients with high-risk disease. Pt is aware of the reasoning and is amenable to proceed as discussed. Ordered: BCG, 25 mg, IntraVesical, Once, Stop date 09/03/22 9:20:00 EDT, Routine, Start date 09/03/22 9:20:00 EDT, 09/03/22 9:20:00 EDT Urnls Dip Stick Auto w/o Microscopy POC 72209 Follow-up No qualifying data available Next week for BCG #2 Patient Education Bladder Cancer Problem List/Past Medical History Ongoing Bladder cancer BPH (benign prostatic hyperplasia) Elevated PSA Family history of prostate cancer Impotence Kidney stone Nocturia Proteinuria Historical No qualifying data Procedure/Surgical History TURBT - Transurethral resection of bladder tumor (07/18/2022), Arthroplasty of knee (2021), Cystoscopy (10/15/2013), Transrectal biopsy of prostate using ultrasound (US) guidance, Transrectal biopsy of prostate using ultrasound (US) guidance. Medications Cialis 10 mg Tab, 10 mg= 1 tab(s), Oral, Daily, PRN, 3 refills Myrbetriq 50 mg oral tablet, extended release, 50 mg= 1 tab(s), Oral, Daily, 11 refills Allergies No Known Allergies Social History Tobacco 10 or more cigarettes (1/2 pack or more)/day in last 30 days Tobacco Use:. Cigarettes, Household tobacco concerns: No., 09/03/2022 Family History Prostate cancer: Father. Immunizations Vaccine Date Status BCG 09/03/2022 Given BCG 08/27/2022 Given SARS-CoV-2 (COVID-19) mRNA BNT-162b2 vax 02/28/2021 Recorded SARS-CoV-2 (COVID-19) mRNA BNT-162b2 vax 09/01/2020 Recorded SARS-CoV-2 (COVID-19) mRNA BNT-162b2 vax 08/11/2020 Recorded Lab Results Ambulatory Point of Care Results Bilirubin Urine Dipstick: Negative (09/03/22 08:59:00) Blood Urine Dipstick: 2+ Moderate (09/03/22 08:59:00) Glucose Urine Dipstick: Negative (09/03/22 08:59:00) Ketones Urine Dipstick: Negative (09/03/22 08:59:00) Leukocytes Urine Dipstick: 1+ Small (09/03/22 08:59:00) Nitrite Urine Dipstick: Negative (09/03/22 08:59:00) Protein Urine Dipstick: 2+ (100 mg/dl) (09/03/22 08:59:00) Specific Lyme Urine Dipstick: >=1.030 (09/03/22 08:59:00) Urine Appearance Urine Dipstick: Clear (09/03/22 08:59:00) Urine Color Urine Dipstick: Yellow (09/03/22 08:59:00) Urobilinogen Urine Dipstick: Normal 0.2-1 EU/dl (09/03/22 08:59:00) pH Urine Dipstick: 6 (09/03/22 08:59:00) [facility] Comment on above: Result Comment: Elec tronically Signed By: YAHAIRA LONG PA-C\.br\Date and Time Signed: 09/03/22 09:48 EDT C Urineon 08-29-2022 Bacteria identified Cx Nom (U) Microbiology PROCEDURE: Urine Culture [R1] SOURCE: U Random BODY SITE: COLLECTED DATE/TIME: 08/27/2022 09:52 EDT RECEIVED DATE/TIME: 08/27/2022 18:09 EDT START DATE/TIME: 08/27/2022 18:09 EDT FREE TEXT SOURCE: YAHAIRA LONG PA-C, PA-C, JENNIFER E FINAL REPORTS Final Report [] Verified Date/Time: 08/29/2022 10:32 EDT 200 cfu/ml Mixed skin contaminants Performing Locations R1: This test was performed at: [facility], [address] [place] [address], [facility]- , , [facility] Comment on above: Performed By: #### 2 [id number] ####[place] [address] Consent for Procedure/Surger n 08-28-2022 Consent for Procedure/Surgery [id number] [id number]:[id number] Normal [facility] Patient Educationon 08-28-19 23 Patient Education Urology Dysuria Dysuria is pain or discomfort during urination. The pain or discomfort may be felt in the part of the body that drains urine from the bladder (urethra) or in the surrounding tissue of the genitals. The pain may also be felt in the groin area, lower abdomen, or lower back. You may have to urinate frequently or have the sudden feeling that you have to urinate (urgency). Dysuria can affect anyone, but it is more common in females. Dysuria can be caused by many different things, including: ? Urinary tract infection. ? Kidney stones or bladder stones. ? Certain STIs (sexually transmitted infections), such as chlamydia. ? Dehydration. ? Inflammation of the tissues of the vagina. ? Use of certain medicines. ? Use of certain soaps or scented products that cause irritation. Follow these instructions at home: Medicines ? Take byix-dlc-wyvnyxd and prescription medicines only as told by your health care provider. ? If you were prescribed an antibiotic medicine, take it as told by your health care provider. Do not stop taking the antibiotic even if you start to feel better. Eating and drinking ? Drink enough fluid to keep your urine pale yellow. ? Avoid caffeinated beverages, tea, and alcohol. These beverages can irritate the bladder and make dysuria worse. In males, alcohol may irritate the prostate. General instructions ? Watch your condition for any changes. ? Urinate often. Avoid holding urine for long periods of time. ? If you are female, you should wipe from front to back after urinating or having a bowel movement. Use each piece of toilet paper only once. ? Empty your bladder after sex. ? Keep all follow-up visits. This is important. ? If you had any tests done to find the cause of dysuria, it is up to you to get your test results. Ask your health care provider, or the department that is doing the test, when your results will be ready. Contact a health care provider if: ? You have a fever. ? You develop pain in your back or sides. ? You have nausea or vomiting. ? You have blood in your urine. ? You are not urinating as often as you usually do. Get help right away if: ? Your pain is severe and not relieved with medicines. ? You cannot eat or drink without vomiting. ? You are confused. ? You have a rapid heartbeat while resting. ? You have shaking or chills. ? You feel extremely weak. Summary ? Dysuria is pain or discomfort while urinating. Many different conditions can lead to dysuria. ? If you have dysuria, you may have to urinate frequently or have the sudden feeling that you have to urinate (urgency). ? Watch your condition for any changes. Keep all follow-up visits. ? Make sure that you urinate often and drink enough fluid to keep your urine pale yellow. This information is not intended to replace advice given to you by your health care provider. Make sure you discuss any questions you have with your health care provider. Document Revised: 10/20/2020 Document Reviewed: 10/20/2020 [employer] Patient Education ? 2022 [employer] Ryan [facility] Urology Office/Clinic Noteon 08-27-2022 Urology Office/Clinic Note Chief Complaint BCG #1 of 6 HPI Staff Pt is here today for BCG #1 of 6 for Tx of Bladder Cancer. Additional DX: Elevated PSA, Nocturia, Kidney Stone & Impotence. *Myrbetriq 50mg QD therapy. No longer taking Cialis 10mg PRN Has been getting tingling feeling in the tip of his penis when he urinates since most recent cysto/stent removal. Also has marked increase in urgency - has to go right when he gets the urge or he will have UUI. Review of Systems PHQ Score Initial Depression Screen Score: 0 no fever, chills, malaise, myalgia. no rash/lesions. no chest pain, palpitations, or SOB. no abdominal pain, nausea, vomiting. no unilateral calf swelling, redness, pain Physical Exam Vitals & Measurements HR: 80(Peripheral) RR: 16 BP: 132/76 HT: 72 in HT: 182 cm WT: 85 kg WT: 187 lb BMI: 25.66 General: nontoxic, NAD Mouth: moist mucosa Lungs: normal respiratory effort Cardio: regular rate, good distal perfusion Abdomen: nondistended, no suprapubic distention or tenderness, no CVA tenderness Neurologic: Grossly normal Skin: No rashes or suspicious lesions Assessment/Plan 1. Dysuria (R30.0: Dysuria) Has been getting tingling feeling in the tip of his penis when he urinates since TURBT. Also has marked increase in urgency - has to go right when he gets the urge or he will have UUI. UA today shows lg blood and small leuks. discussed risks of BCG with UTI. will postpone treatment at this time. send urine for cx. start empiric bactrim x 1 week. reassess sx next week and plan to start BCG at that time. Ordered: sulfamethoxazole-tri methoprim, 1 tab(s), Oral, BID for 7 day(s), 14 tab(s), Refill(s) 0, [facility], 182, cm, 08/27/22 9:05:00 EDT, Height/Length Dosing, 85, kg, 08/27/22 9:05:00 EDT, Weight Dosing E&M of Est. Patient Moderate 30-39 Min 64597 2. Bladder cancer (C67.9: Malignant neoplasm of bladder, unspecified) S/p TURBT w/ left stent placement 07/18/22. 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 Ordered: BCG, = 50 mL, IntraVesical, As Directed, Routine, Start date 08/27/22 8:55:00 EDT, 08/27/22 8:55:00 EDT sulfamethoxazole-tri methoprim, 1 tab(s), Oral, BID for 7 day(s), 14 tab(s), Refill(s) 0, [facility], 182, cm, 08/27/22 9:05:00 EDT, Height/Length Dosing, 85, kg, 08/27/22 9:05:00 EDT, Weight Dosing E&M of Est. Patient Moderate 30-39 Min 24622 Urnls Dip Stick Auto w/o Microscopy POC 21749 Follow-up No qualifying data available 1 week for BCG #1 Patient Education Dysuria Problem List/Past Medical History Ongoing Bladder cancer BPH (benign prostatic hyperplasia) Elevated PSA Family history of prostate cancer Impotence Kidney stone Nocturia Proteinuria Historical No qualifying data Procedure/Surgical History TURBT - Transurethral resection of bladder tumor (07/18/2022), Arthroplasty of knee (2021), Cystoscopy (10/15/2013), Transrectal biopsy of prostate using ultrasound (US) guidance, Transrectal biopsy of prostate using ultrasound (US) guidance. Medications Bactrim D.S. 800 mg-160 mg Tab, 1 tab(s), Oral, BID Cialis 10 mg Tab, 10 mg= 1 tab(s), Oral, Daily, PRN, 3 refills, Not taking Myrbetriq 50 mg oral tablet, extended release, 50 mg= 1 tab(s), Oral, Daily, 11 refills Allergies No Known Allergies Social History Tobacco 10 or more cigarettes (1/2 pack or more)/day in last 30 days Tobacco Use:. Cigarettes, 08/27/2022 Family History Prostate cancer: Father. Immunizations Vaccine Date Status BCG 08/27/2022 Given Lab Results Ambulatory Point of Care Results Bilirubin Urine Dipstick: Negative (08/27/22 09:02:00) Blood Urine Dipstick: 3+ Large (08/27/22 09:02:00) Glucose Urine Dipstick: Negative (08/27/22 09:02:00) Ketones Urine Dipstick: Negative (08/27/22 09:02:00) Leukocytes Urine Dipstick: 1+ Small (08/27/22 09:02:00) Nitrite Urine Dipstick: Negative (08/27/22 09:02:00) Protein Urine Dipstick: 2+ (100 mg/dl) (08/27/22 09:02:00) Specific Lyme Urine Dipstick: 1.025 (08/27/22 09:02:00) Urine Appearance Urine Dipstick: Clear (08/27/22 09:02:00) Urine Color Urine Dipstick: Yellow (08/27/22 09:02:00) Urobilinogen Urine Dipstick: Normal 0.2-1 EU/dl (08/27/22 09:02:00) pH Urine Dipstick: 6 (08/27/22 09:02:00) Normal [facility] Comment on above: Result Comment: Elec tronically Signed By: ETHAN PA-YAHAIRA Giraldo\.br\Date and Time Signed: 08/27/22 09:44 EDT CBC AUTO DIFFon 07-17-2022 BASO # 0.0 103/ul Normal 0.0-0.1 [facility] Comment on above: Performed By: #### C BC #### [facility] [address] [place] [address] Dr. Viktoria Nuñez Basophils/100 WBC (Bld) 0.3 % Normal 0.2-2.0 [facility] Comment on above: Performed By: #### C BC #### [facility] [address] [place] [address] Dr. Viktoria Nuñez EO # 0.0 103/ul Normal 0.0-0.7 [facility] Comment on above: Performed By: #### C BC #### [facility] [address] [place] [address] Dr. Viktoria Nuñez Eosinophils/100 WBC (Bld) 0.0 % Critically low 0.9-7.0 [facility] Comment on above: Performed By: #### C BC #### [facility] [address] [place] [address] Dr. Viktoria Nuñez Erythrocyte distribution width (RBC) [Ratio] 13.2 % Normal 11.0-15.0 [facility] Comment on above: Performed By: #### C BC #### [facility] [address] [place] [address] Dr. Viktoria Nuñez Hematocrit (Bld) [Volume fraction] 47.3 % Normal 42.0-54.0 [facility] Comment on above: Performed By: #### C BC #### [facility] [address] [place] [address] Dr. Viktoria Nuñez Hemoglobin (Bld) [Mass/Vol] 15.7 g/dL Normal 14.0-18.0 [facility] Comment on above: Performed By: #### C BC #### [facility] [address] [place] [address] Dr. Viktoria Nuñez IG # 0.03 10e3/ul Normal 0.00-0.03 [facility] Comment on above: Performed By: #### C BC #### [facility] [address] [place] [address] Dr. Viktoria Nuñez IG % 0.4 % Normal 0.0-0.5 [facility] Comment on above: Performed By: #### C BC #### [facility] [address] [place] [address] Dr. Viktoria Nuñez LYMPH # 1.4 103/ul Normal 1.2-3.[address] [facility] Comment on above: Performed By: #### C BC #### [facility] [address] [place] [address] Dr. Viktoria Nuñez Lymphocytes/100 WBC (Bld) 18.6 % Critically low 20.5-60.0 [facility] Comment on above: Performed By: #### C BC #### [facility] [address] [place] [address] Dr. Viktoria Nuñez MANUAL DIFF REQ NO Normal [facility] Comment on above: Performed By: #### C BC #### [facility] [address] [place] [address] Dr. Viktoria Nuñez MCH (RBC) [Entitic mass] 30.7 pg Normal 25.9-34.0 [facility] Comment on above: Performed By: #### C BC #### [facility] [address] [place] [address] Dr. Viktoria Nuñez MCHC (RBC) [Mass/Vol] 33.2 g/dL Normal 29.9-35.[address] [facility] Comment on above: Performed By: #### C BC #### [facility] [address] [place] [address] Dr. Viktoria Nuñez MCV (RBC) [Entitic vol] 92.4 fL Normal 80.0-94.[address] [facility] Comment on above: Performed By: #### C BC #### [facility] [address] [place] [address] Dr. Viktoria Nuñez MONO # 0.6 103/ul Normal 0.3-0.8 [facility] Comment on above: Performed By: #### C BC #### [facility] [address] [place] [address] Dr. Viktoria Nuñez Monocytes/100 WBC (Bld) 7.6 % Normal 1.7-12.[address] [facility] Comment on above: Performed By: #### C BC #### [facility] [address] [place] [address] Dr. Viktoria Nuñez NEUT # 5.4 103/ul Normal 1.4-6.[address] [facility] Comment on above: Performed By: #### C BC #### [facility] [address] [place] [address] Dr. Viktoria Nuñez Neutrophils/100 WBC (Bld) 73.1 % Normal 43.0-75.[address] [facility] Comment on above: Performed By: #### C BC #### [facility] [address] [place] [address] Dr. Viktoria Nuñez Platelet mean volume (Bld) [Entitic vol] 10.1 fL Normal 9.5-13.[address] [facility] Comment on above: Performed By: #### C BC #### [facility] [address] [place] [address] Dr. Viktoria Nuñez PLT 235 103/ul Normal 150-[address] [facility] Comment on above: Performed By: #### C BC #### [facility] [address] [place] [address] Dr. Viktoria Nuñez RBC 5.12 106/ul Normal 4.70-6.[address] [facility] Comment on above: Performed By: #### C BC #### [facility] [address] [place] [address] Dr. Viktoria Nuñez WBC 7.4 103/ul Normal 4.0-11.[address] [facility] Comment on above: Performed By: #### C BC #### [facility] [address] [place] [address] Dr. Viktoria Nuñez PROF CHEM 8 (BAS METB)on Anion gap [Moles/Vol] 12.2 mmol/L Normal [facility] Comment on above: Performed By: #### B MP #### [facility] [address] [place] [address] Dr. Viktoria Nuñez Calcium [Mass/Vol] 9.6 mg/dL Normal 8.5-10.1 [facility] Comment on above: Performed By: #### B MP #### [facility] [address] [address] [address] Viktoria Nuñez Chloride [Moles/Vol] 107 mmol/L Normal 98-[address] [facility] Comment on above: Performed By: #### B MP #### [facility] [address] [address] [address] Viktoria Nuñez CO2 [Moles/Vol] 27.9 mmol/L Normal 21.0-32.0 [facility] Comment on above: Performed By: #### B MP #### [facility] [address] [place] [address] Dr. Viktoria Nuñez Creatinine [Mass/Vol] 1.15 mg/dL Normal 0.70-1.30 [facility] Comment on above: Performed By: #### B MP #### [facility] [address] [place] [address] Dr. Viktoria Nuñez EGFR-AF RUSSIAN >60 Normal >=60 [facility] Comment on above: Performed By: #### B MP #### [facility] [address] [place] [address] Dr. Viktoria Nuñez EGFR-NON AF RUSSIAN >60 Normal >=[address] [facility] Comment on above: Performed By: #### B MP #### [facility] [address] [place] [address] Dr. Viktoria Nuñez Glucose [Mass/Vol] 110 mg/dL Critically high 74-106 [facility] Comment on above: Performed By: #### B MP #### [facility] [address] [address] [address] Viktoria Nuñez Potassium [Moles/Vol] 4.1 mmol/L Normal 3.5-5.[address] [facility] Comment on above: Performed By: #### B MP #### [facility] [address] [address] [address] Viktoria Nuñez Sodium [Moles/Vol] 143 mmol/L Normal 136-145 [facility] Comment on above: Performed By: #### B MP #### [facility] [address] [place] [address] Dr. Viktoria Nuñez Urea nitrogen [Mass/Vol] 20.0 mg/dL Critically high 7.0-18.0 [facility] Comment on above: Performed By: #### B MP #### [facility] [address] [place] [address] Dr. Viktoria Nuñez Urea nitrogen/Creatinine [Mass ratio] 17.4 mg/mg Normal [facility] Comment on above: Performed By: #### B MP #### [facility] [address] [place] [address] Dr. Viktoria Nuñez PROTIMEon 07-17-2022 INR Coag (PPP) [Relative time] 1.03 {INR} Normal [facility] Comment on above: Performed By: #### P T, PTT #### [facility] [address] [place] [address] Dr. Viktoria Nuñez INR GUIDELINES SEE BELOW Normal [facility] Comment on above: Result Comment: RODDY RED INR: 2.0 - 3.0 CONDITIONS NOT LISTED BELOW 2.5 - 3.5 FOR PROSTHETIC HEART VALVE REPLACEMENT 2.5 - 3.5 RECURRENT THROMBOSIS Performed By: #### P T, PTT #### [facility] [address] [place] [address] Dr. Viktoria Nuñez PT Coag (PPP) [Time] 10.9 s Normal 9.0-11.6 [facility] Comment on above: Performed By: #### P T, PTT #### [facility] [address] [place] [address] Dr. Viktoria Nuñez PTTon 07-17-2022 aPTT Coag (Bld) [Time] 28.0 s Normal 22.3-36.2 [facility] Comment on above: Performed By: #### P T, PTT #### [facility] [address] [place] [address] Dr. Viktoria Nuñez CREATININEon 06-27-2022 Creatinine [Mass/Vol] 0.96 mg/dL Normal 0.70-1.30 [facility] Comment on above: Performed By: #### C CHRISTOPHER #### [facility] [address] [address] [address] Viktoria Nuñez EGFR-AF RUSSIAN >60 Normal >=60 [facility] Comment on above: Performed By: #### C CHRISTOPHER #### [facility] [address] [address] [address] Viktoria Nuñez EGFR-NON AF RUSSIAN >60 Normal >=60 [facility] Comment on above: Performed By: #### C CHRISTOPHER #### [facility] [address] [place], [place] [address] Dr[address] Viktoria Nuñez CT ABD/PELV WO W CONon 06-27 CT ABD/PELV WO W CON EXAMINATION: CT ABD/PELV WO W CON HISTORY: Magdaleno hematuria COMPARISON: No relevant comparison available. TECHNIQUE: Axial, Coronal, and Sagittal images were obtained without and/or with IV contrast as indicated by examination type. Dose reduction techniques were achieved by using automated exposure control and/or adjustment of mA and/or kV according to patient size and/or use of iterative reconstruction technique. FINDINGS: LUNG BASES: 8 x 4 mm nodule within posterior left lung base. Multiple small calcified granulomas within lung bases. LIVER: No enlargement, atrophy, suspicious density, or significant focal lesion. BILIARY: No dilatation or calcification. PANCREAS: No lesion, fluid collection, or abnormal duct dilatation. SPLEEN: No enlargement or focal lesion. ADRENALS: No mass or enlargement. KIDNEYS: 5 mm nonobstructing stone within right kidney. 3.2 cm benign-appearing cyst projecting from left kidney. Unremarkable ureters. BOWEL/MESENTERY: Marked diverticulosis of the sigmoid colon without acute inflammatory changes. No visible mass, obstruction, or bowel wall thickening. Normal appendix. AORTA/VASCULAR: No aneurysm or dissection. RETROPERITONEUM: No mass or adenopathy. LYMPH NODES: No adenopathy. URINARY BLADDER: No visible focal wall thickening, lesion, or calculus. PELVIC ORGANS: No visible mass. Pelvic organs appropriate for patient age. ABDOMINAL WALL: No mass or hernia. BONES: No bony lesion or fracture. OTHER: Moderate degenerative disc disease L4-L5, L5-S1. IMPRESSION: 1. Nonobstructing right nephrolithiasis which may contribute to patient's symptoms. 2.Marked diverticulosis of the sigmoid colon without acute diverticulitis. Electronically authenticated by: CLARIBEL COX Date: 2022-06-27 09:55 Normal [facility] XR shoulder RT min 2V*on XR shoulder RT min 2V* [facility] [place] [address] [place] [id number] XRay Report Signed Patient: Darian Duenas MR#: [id number] 65 : 1955 Acct:[id number] Age/Sex: 67 / M ADM Date: 06/10/22 [place] [facility] [place] Type: [facility] Attending Dr: Mickie Cooper MD Copies to: Mickie Cooper MD Ordering Provider: Mickie Cooper MD Date of Service: 06/10/22 XR/XR shoulder RT min 2V*: PAIN XR shoulder RT min 2V* 06/10/2022 9:51 AM SIGNS AND SYMPTOMS: Increasing right lateral shoulder pain PROTOCOL: Frontal, Grashey, scapular Y, axillary views of the right shoulder COMPARISON: None FINDINGS: Soft tissue anchors are noted along the right humeral head and neck suggesting prior rotator cuff and/or biceps tendon repair. There is significant hypertrophy of the acromioclavicular joint with ossified loose bodies separate from the greater tuberosity. There is severe narrowing of the glenohumeral joint with spurring at the inferior margin of the joint space. There is no evidence of acute displaced fracture. The visualized right hemithorax is grossly intact. Multiple calcified granulomas in the right side of the chest. XR/XR shoulder RT min 2V* IMPRESSION: Postoperative changes are noted in the right shoulder, as above. Extensive degenerative changes are noted in the acromioclavicular joint and glenohumeral joint without evidence of fracture or dislocation. Findings suggest underlying rotator cuff abnormalities, as above. Impression dictated by: Cristi Dwyer M.D.06/10/2022 8:07 PM Dictation Location: [place] [address] Transcribed By: [facility] 06/10/222006 Dictated By: Cristi Dwyer II, MD 06/10/222002 Signed By: 06/10/222006 Normal [facility] MR lumbar spine wo conon 12- 29-2022 MR lumbar spine wo con [facility] [place] [address] [place] [address] MRI Report Signed Patient: Darian Duenas MR#: [id number] 65 : 1955 Acct:[id number] Age/Sex: 66 / M ADM Date: 03/21/22 [facility] Room: Type: REG CLI Attending Dr: Nahid Canchola DO Copies to: Nahid Canchola DO Ordering Provider: Nahid Canchola DO Date of Service: 03/21/22 MR/MR lumbar spine wo con: Lumbar radiculopathy MRI LUMBAR SPINE WITHOUT CONTRAST CLINICAL DATA: Low back pain radiating to the left hip since knee surgery last spurring. COMPARISON: 10/26/2021 plain films Multiecho imaging in the axial and sagittal plane was performed without contrast. There is mild dextroscoliotic curvature. No displacement is seen on the sagittal images. There are no acute compression fractures or marrow edema. There are minor degenerative endplate signal changes at L4-5 and the lumbosacral junction. The conus medullaris terminates at L1. No paraspinal soft tissue abnormality is are identified. There are small renal cysts. At T12-L1 and L1-2, there is no disc disease or stenosis. At L2-3, the disc is normal height and signal intensity. There is minor annular disc bulging, asymmetric through the right neural foramen extending laterally. There is no significant thecal sac effacement. There is mild right inferior foraminal encroachment. At L3-4, there is mild disc space narrowing. There is annular disc bulging, asymmetric from the right parasagittal region extending through the neural foramen. There is also potential tiny central/right parasagittal protrusion with minor caudal extension of disc material. There is some facet hypertrophy. There is mild thecal sac effacement. There is mild to moderate bilateral foraminal encroachment. At L4-5, there is narrowing of the disc space. There is annular disc bulging, asymmetric extending laterally on the right where there is also moderate endplate spurring. There is mild facet and ligamentous hypertrophy. There is subtle thecal sac effacement. There is mild to potentially moderate right and mild left foraminal impingement. At the lumbosacral junction, there is narrowing of the space. There is mild disco-osteophytic bulging, greater toward the neural foramen. There is mild facet disease. No thecal sac effacement is present. There is at mild right and mild to moderate left foraminal encroachment. MR/MR lumbar spine wo con IMPRESSION: Dextroscoliosis. Discovertebral degenerative changes, greater distally. No prominent central stenosis Impression dictated by: Apple Lentz M.D.03/21/2022 3:41 PM Dictation Location: RADIO-PC-12 Transcribed By: [facility] 03/21/22 154 Dictated By: Apple Lentz MD 03/21/221530 Signed By: 03/21/22 154 [facility] XR knee LT 2Von 12-03-2021 XR knee LT 2V [place] [address] XRay Report Signed Patient: Darian Duenas MR#: [id number] 65 : 1955 Acct:[id number] Age/Sex: 66 / M ADM Date: 12/03/21 [place] [facility]: Type: [facility] Attending Dr: Nahid Canchola DO Copies to: Nahid Canchola DO Ordering Provider: Nahid Canchola DO Date of Service: 12/03/21 XR/XR knee LT 2V: Status post total left knee replacement LEFT KNEE - 2 views CLINICAL HISTORY: Follow-up TKA COMPARISON: 07/05/2021 FINDINGS: No hardware complication. XR/XR knee LT 2V IMPRESSION: NO HARDWARE COMPLICATION. NO ACUTE BONY PROCESS. Impression dictated by: Naun Haywood Jr., D.ODeedee12/03/2021 3:33 PM Dictation Location: RADIO-PC-11 Transcribed By: [facility] 12/03/211532 Dictated By: Naun Haywood Jr, DO 12/03/211532 Signed By: 12/03/211532 [facility] XR knee LT 2V [facility] Grow Other XR knee LT 2V [facility] [employer] Other XR knee LT 2V [address] [facility] [employer] Other XR [place] 2[place] [address] [facility] [employer] Other XR knee LT 2V XRay Report [facility] [employer] Other XR knee LT 2V Signed [employer] Other XR knee LT 2V Patient: Darian Duenas MR#: [id number] [facility] [employer] Other XR knee LT 2V 66 [facility] [employer] Other XR knee LT 2V : 1955 Acct:[id number] [facility] [employer] Other XR knee LT 2V Age/Sex: 66 / M ADM Date: 12/03/21 [facility] [employer] Other XR knee LT 2V Loc: [facility] Room: Type: [facility] [employer] Other XR knee LT 2V Attending Dr: Nahid Canchola DO [employer] Other XR knee LT 2V Copies to: Nahid Canchola DO [employer] Other XR knee LT 2V Ordering Provider: Nahid Canchola DO [employer] Other XR knee LT 2V Date of Service: 12/03/21 [employer] Other XR knee LT 2V XR/XR knee LT 2V: Status post total left knee replacement [employer] Other XR knee LT 2V LEFT KNEE - 2 views No rt [employer] Other XR knee LT 2V CLINICAL HISTORY: Follow-up TKA [employer] Other XR knee LT 2V COMPARISON: 07/05/2021 [employer] Other XR knee LT 2V FINDINGS: [employer] Other XR knee LT 2V No hardware complication. [employer] Other XR knee LT 2V XR/XR knee LT 2V [employer] Other XR knee LT 2V IMPRESSION: [employer] Other XR knee LT 2V NO HARDWARE COMPLICATION. NO ACUTE BONY PROCESS. [employer] Other XR knee LT 2V Impression dictated by: Naun Haywood Jr., D.ODeedee12/03/2021 3:33 PM [employer] Other XR knee LT 2V Dictation Location: [place] [address] [employer] Other XR knee LT 2V Transcribed By: [facility] 12/03/21 [facility] Grow Other XR knee LT 2V Dictated By: Naun Haywood Jr, DO 12/03/21 [facility] Grow Other XR knee LT 2V Signed By: [employer] Other XR knee LT 2V 12/03/21 [facility] [employer] Other XR pre/post mri xrayon 11-14 XR pre/post mri xray [place] [address] MRI Report Signed Patient: Darian Duenas MR#: [id number] 65 : 1955 Acct:[id number] Age/Sex: 66 / M ADM Date: 11/14/21 Loc: [facility] Room: Type: REG CLI Attending Dr: Nahid Canchola DO Copies to: Nahid Canchola DO Ordering Provider: Nahid Canchola DO Date of Service: 11/14/21 MR/MR femur LT wo con: Status post total left knee replacement ([id number]) XR/XR pre/post mri xray: Z96.652 MR femur LT wo con, XR pre/post mri xray 11/14/2021 11:05 AM SIGNS AND SYMPTOMS: Status post total left knee replacement, numbness along the medial, lateral, and posterior aspect of the left thigh PROTOCOL: Multiplanar multisequence MR images of the left femur were obtained without IV contrast. Frontal and lateral radiographs of the left femur were obtained. COMPARISON: None FINDINGS: Left femur radiograph: There is total left knee arthroplasty hardware without hardware complication or evidence of fracture. Femur is grossly intact. No significant soft tissue swelling. There is mild narrowing of the left hip joint space. Left femur MRI: There is partial visualization of susceptibility in the distal femur consistent with left knee arthroplasty hardware. There is mild T2 hyperintense and T1 hypointense signal within the distal femoral shaft along the marrow spaces which may be reactive secondary to previous left knee arthroplasty hardware placement. The neurovascular structures are within normal limits. The musculature is normal in signal. The subcutaneous fat is normal in signal. Incidental note is made of a few uncomplicated colonic diverticula within the sigmoid colon. The visualized pelvic viscera are otherwise within normal limits. MR/MR femur LT wo con IMPRESSION: Total left knee arthroplasty hardware is partially visualized. No hardware complication. There is mild T2 hyperintense and T1 hypointense signal within the distal femoral shaft along the marrow spaces which may be reactive secondary to previous left knee arthroplasty hardware placement. The neurovascular structures and soft tissues are within normal limits. Impression dictated by: Cristi Dwyer M.D.11/14/2021 3:52 PM Dictation Location: [place] [address] Transcribed By: [facility] 11/14/21 1552 Dictated By: Cristi Dwyer II, MD 11/14/21 1545 Signed By: 11/14/21 1552 Normal [facility] XR lumbar spine AP/LAT/FLX/E XTon 10-26-2021 XR lumbar spine AP/LAT/FLX/EXT [facility] [place] [id number] XRay Report Signed Patient: Darian Duenas MR#: [id number] 65 : 1955 Acct:[id number] Age/Sex: 66 / M ADM Date: 10/26/21 [place] [facility]: Type: [facility] CLI Attending Dr: Nahid Canchola DO Copies to: Nahid Canchola DO Ordering Provider: Nahid Canchola DO Date of Service: 10/26/21 XR/XR lumbar spine AP/LAT/FLX/EXT: Z96.652 Lumbar spine 4 views . Reason for exam: Left knee pain that radiates to left hip COMPARISON: None. FINDINGS: 5 lumbar type vertebral bodies are noted. Vertebral body heights appear well-maintained. Moderate disc space narrowing L4-L5 and L5-S1 with associated endplate and facet joint degenerative changes. No pathological motion is seen. XR/XR lumbar spine AP/LAT/FLX/EXT IMPRESSION: Moderate degenerative disc disease L4-L5 and L5-S1. Impression dictated by: Naun Haywood Jr., D.O.10/26/2021 2:45 PM Dictation Location: [place] [address] Transcribed By: [facility] 10/26/21 1445 Dictated By: Naun Haywood Jr, DO 10/26/21 1443 Signed By: 10/26/21 1445 Normal [facility] C-Reactive Proteinon 022 C-Reactive Protein 1.4 mg/dL High 0.0-1.0 [facility] Comment on above: Result Comment: PERF ORMED BY: [place] [address] PATHOLOGIST [employer] MARIELA OLVERA M.D. Performed By: #### C RP, CBC, ESR #### [facility] [address] [place] [address] Complete Blood Count Auto Di ffon 08-01-2021 Basophils (Bld) [#/Vol] 0.1 10*3/uL Normal 0.0-0.2 [facility] Comment on above: Performed By: #### C RP, CBC, ESR #### [facility] [address] [place] [address] Basophils/100 WBC (Bld) 0.8 % Normal . [facility] Comment on above: Performed By: #### C RP, CBC, ESR #### [address] [place] [address] [place] Eosinophils (Bld) [#/Vol] 0.2 10*3/uL Normal 0.0-0.45 [facility] Comment on above: Performed By: #### C RP, CBC, ESR #### [address] Eosinophils/100 WBC (Bld) 1.9 % Normal . [facility] Comment on above: Performed By: #### C RP, CBC, ESR #### [address] Erythrocyte distribution width (RBC) [Ratio] 13.8 % Normal 12.0-14.8 [facility] Comment on above: Performed By: #### C RP, CBC, ESR #### [address] Hematocrit (Bld) [Volume fraction] 39.2 % Normal 38.8-50.0 [facility] Comment on above: Performed By: #### C RP, CBC, ESR #### [address] Hemoglobin (Bld) [Mass/Vol] 13.3 g/dL Normal 13.0-17.0 [facility] Comment on above: Performed By: #### C RP, CBC, ESR #### [address] Lymphocytes (Bld) [#/Vol] 1.9 10*3/uL Normal 1.00-4.8 [facility] Comment on above: Performed By: #### C RP, CBC, ESR #### [place] [address] [place] Lymphocytes/100 WBC (Bld) 22.3 % Normal . [facility] Comment on above: Performed By: #### C RP, CBC, ESR #### [address] MCH (RBC) [Entitic mass] 31.3 pg Normal 27.5-35.2 [facility] Comment on above: Performed By: #### C RP, CBC, ESR #### [facility] [address] MCV (RBC) [Entitic vol] 92.2 fL Normal 83.5-101 [facility] Comment on above: Performed By: #### C RP, CBC, ESR #### [facility] [address] Mean Corpuscular HGB Conc 33.9 g/dL Normal 32.5-35.6 [facility] Comment on above: Performed By: #### C RP, CBC, ESR #### [facility] [address] Monocytes (Bld) [#/Vol] 0.7 10*3/uL Normal 0.0-0.8 [facility] Comment on above: Performed By: #### C RP, CBC, ESR #### [address] Monocytes/100 WBC (Bld) 8.8 % Normal . [facility] Comment on above: Performed By: #### C RP, CBC, ESR #### [facility] [address] [place] [address] [place] Neutrophils (Bld) [#/Vol] 5.5 10*3/uL Normal 1.8-7.7 [facility] Comment on above: Performed By: #### C RP, CBC, ESR #### [facility] [address] Neutrophils/100 WBC (Bld) 66.2 % Normal . [facility] Comment on above: Performed By: #### C RP, CBC, ESR #### [facility] [address] [place] [address] [place] Nucleated RBC/100 WBC (Bld) [Ratio] 0.0 % Normal 0-0.5 [facility] Comment on above: Performed By: #### C RP, CBC, ESR #### [facility] [address] Platelet mean volume (Bld) [Entitic vol] 8.5 fL Normal 6.6-10.1 [facility] Comment on above: Performed By: #### C RP, CBC, ESR #### [facility] [address] Platelets (Bld) [#/Vol] 380 10*3/uL Normal 150-450 [facility] Comment on above: Performed By: #### C RP, CBC, ESR #### [address] RBC (Bld) [#/Vol] 4.25 10*6/uL Normal 3.90-5.60 [facility] Comment on above: Performed By: #### C RP, CBC, ESR #### [address] WBC (Bld) [#/Vol] 8.3 10*3/uL Normal 4.5-11.0 [facility] Comment on above: Performed By: #### C RP, CBC, ESR #### [address] Erythrocyte Sedimentation Ra susan 08-01-2021 ESR (Bld) [Velocity] 39 mm/h High 0-19 [facility] Comment on above: Result Comment: PERF ORMED BY: [place] [address] PATHOLOGIST [employer] MARIELA OLVERA M.D. Performed By: #### C RP, CBC, ESR #### [address] [place] 07-05-2021 L Specimen: Received: 07/05/21 Status: VALERY Hammond Num: [id number] Spec Type: Surgical Subm Dr: Nahid Canchola, DO Tissues: A Joint/Knee (L KNEE) Procedures: HE Stain, Gross/Micro L4, Decal Patient Age/Sex Location Account Attending Physician Darian Duenas 66/[facility] [id number] Nahid Canchola DO SPEC NUM: [id number] RECD: 07/05/21 STATUS: VALERY HAMMOND NUM: [id number] MELISSA: 07/05/21 DR: Nahid Canchola DO ENTERED: 07/05/21 [facility] DR: ALEXANDER TYPE: Surgical DEPT: S ORDERED: HE Stain, Gross/Micro L4, Decal ORDERED: HE Stain, Gross/Micro L4, Decal Pathological Diagnosis Bone and soft tissue, left knee, arthroplasty: - Bone and cartilage showing degenerative and reactive changes, consistent with degenerative joint disease Clinical Information Degenerative joint disease, left knee Gross Description Received in formalin labeled with the patient's name, number and bone and tissue left knee are multiple fragments of bone, tibial plateau, femoral condyles, dense shine meniscus, and fatty yellow tissue aggregating 14.5 x 12.5 x 2.5 cm. The articular surface demonstrates shine superficial erosion and granularity comprising 80% of the articular cartilage. Eburnation is identified comprising 15% of the articular cartilage. Moderate osteophyte formation is identified. Sectioning of the bone reveals shine, focally sclerotic cut surfaces. A sales representative meats section of bone is submitted following formalin fixation and decalcification . (SM/JS) Microscopic Description One glass slide with H E stained material has been examined. The microscopic findings support the above pathologic diagnosis. [id number] Specimen: Received: 07/05/21 Status: VALERY [facility] Num: [id number] Spec Type: Surgical Subm Dr: Nahid Canchola DO Tissues: A Joint/Knee (L KNEE) Procedures: HE Stain, Gross/Micro L4, Decal Patient: Darian Duenas [id number] (Continued) Signed (signature on file) Mariela Olvera MD 07/10/21 1843 [facility] XR knee LT 2Von 07-05-2021 XR knee LT 2[place] [address] XRay Report Signed Patient: Darian Duenas MR#: [id number] 65 : 1955 Acct:[id number] Age/Sex: 66 / M ADM Date: 07/05/21 Loc: [place] Room: Type: [facility] Attending Dr: Nahid Canchola DO Ordering Provider: Nahid Canchola DO Date of Service: 07/05/21 XR/XR knee LT 2V: TKA Copies to: Nahid Canchola DO LEFT KNEE - 2 views COMPARISON: 11/09/2020 CLINICAL DATA: Follow-up after knee replacement. AP and lateral views of the knee were obtained. There is a new knee replacement. The hardware appears intact and in appropriate position. There are no acute fractures or dislocation. There is subcutaneous air as well as air and fluid within the joint space. XR/XR knee LT 2V IMPRESSION: SATISFACTORY POSTOPERATIVE APPEARANCE OF KNEE REPLACEMENT. 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 This test has not been FDA cleared or approved. This test has been authorized by FDA under an Emergency Use Authorization (EUA). This test has been validated in accordance with the FDA's Guidance Document (Policy for Diagnostics Testing in Laboratories Certified to Perform High Complexity Testing under CLIA prior to Emergency Use Authorization for Coronavirus Disease-2019 during the Public Health Emergency) issued on June 24, 2019. This test is only authorized for the duration of time the declaration that circumstances exist justifying the authorization of the emergency use of in vitro diagnostic tests for detection of SARS-CoV-2 virus and/or diagnosis of COVID-19 infection under section 564(b)(1) of the Act, 21 U.S.C. 360bbb-3(b)(1), unless the authorization is terminated or revoked sooner. PERFORMED BY: [place] [address] PATHOLOGIST [employer] MARIELA OLVERA M.D. Performed By: #### C OVID 19 [facility] #### [address] Complete Blood Count Auto Di ffon 07-03-2021 Basophils (Bld) [#/Vol] 0.0 10*3/uL Normal 0.0-0.2 [facility] Comment on above: Result Comment: PERF ORMED BY: [place] [address] PATHOLOGIST [employer] MARIELA OLVERA M.D. Performed By: #### C MP, CBC #### [address] Basophils/100 WBC (Bld) 0.3 % Normal . [facility] Comment on above: Performed By: #### C MP, CBC #### [address] Eosinophils (Bld) [#/Vol] 0.2 10*3/uL Normal 0.0-0.45 [facility] Comment on above: Performed By: #### C MP, CBC #### [facility] [address] [place] [address] [place] Eosinophils/100 WBC (Bld) 2.5 % Normal . [facility] Comment on above: Performed By: #### C MP, CBC #### [facility] [address] Erythrocyte distribution width (RBC) [Ratio] 13.5 % Normal 12.0-14.8 [facility] Comment on above: Performed By: #### C MP, CBC #### [address] Hematocrit (Bld) [Volume fraction] 42.9 % Normal 38.8-50.0 [facility] Comment on above: Performed By: #### C MP, CBC #### [address] Hemoglobin (Bld) [Mass/Vol] 14.6 g/dL Normal 13.0-17.0 [facility] Comment on above: Performed By: #### C MP, CBC #### [address] Lymphocytes (Bld) [#/Vol] 1.6 10*3/uL Normal 1.00-4.8 [facility] Comment on above: Performed By: #### C MP, CBC #### [place] [address] [place] Lymphocytes/100 WBC (Bld) 23.6 % Normal . [facility] Comment on above: Performed By: #### C MP, CBC #### [place] [address] [place] MCH (RBC) [Entitic mass] 32.1 pg Normal 27.5-35.2 [facility] Comment on above: Performed By: #### C MP, CBC #### [address] MCV (RBC) [Entitic vol] 94.3 fL Normal 83.5-101 [facility] Comment on above: Performed By: #### C MP, CBC #### [facility] [address] Mean Corpuscular HGB Conc 34.0 g/dL Normal 32.5-35.6 [facility] Comment on above: Performed By: #### C MP, CBC #### [facility] [address] [place] [address] [place] Monocytes (Bld) [#/Vol] 0.5 10*3/uL Normal 0.0-0.8 [facility] Comment on above: Performed By: #### C MP, CBC #### [facility] [address] [place] [address] [place] Monocytes/100 WBC (Bld) 7.8 % Normal . [facility] Comment on above: Performed By: #### C MP, CBC #### [facility] [address] [place] [address] [place] Neutrophils (Bld) [#/Vol] 4.3 10*3/uL Normal 1.8-7.7 [facility] Comment on above: Performed By: #### C MP, CBC #### [facility] [address] [place] [id number] [place] Neutrophils/100 WBC (Bld) 65.8 % Normal . [facility] Comment on above: Performed By: #### C MP, CBC #### [facility] [address] [place] [address] [place] Nucleated RBC/100 WBC (Bld) [Ratio] 0.1 % Normal 0-0.5 [facility] Comment on above: Performed By: #### C MP, CBC #### [facility] [address] [place] [id number] [place] Platelet mean volume (Bld) [Entitic vol] 9.1 fL Normal 6.6-10.1 [facility] Comment on above: Performed By: #### C MP, CBC #### [facility] [address] [place] [phone] [place] Platelets (Bld) [#/Vol] 237 10*3/uL Normal 150-450 [facility] Comment on above: Performed By: #### C MP, CBC #### [address] RBC (Bld) [#/Vol] 4.55 10*6/uL Normal 3.90-5.60 [facility] Comment on above: Performed By: #### C MP, CBC #### [address] WBC (Bld) [#/Vol] 6.6 10*3/uL Normal 4.5-11.0 [facility] Comment on above: Performed By: #### C MP, CBC #### [address] Comprehensive Metabolic Pane renny 07-03-2021 Albumin [Mass/Vol] 3.7 g/dL Normal 3.2-5.5 [facility] Comment on above: Performed By: #### C MP, CBC #### [address] Albumin/Globulin [Mass ratio] 1.4 {ratio} Normal [facility] Comment on above: Performed By: #### C MP, CBC #### [address] ALP [Catalytic activity/Vol] 54 U/L Normal 32-92 [facility] Comment on above: Result Comment: PERF ORMED BY: [place] [address] PATHOLOGIST [employer] MARIELA OLVERA M.D. Performed By: #### C MP, CBC #### [address] [address] ALT [Catalytic activity/Vol] 20 U/L Normal 10-60 [facility] Comment on above: Performed By: #### C MP, CBC #### [address] AST [Catalytic activity/Vol] 21 U/L Normal 10-42 [facility] Comment on above: Performed By: #### C MP, CBC #### [address] Bilirubin [Mass/Vol] 0.6 mg/dL Normal 0.3-1.2 [facility] Comment on above: Performed By: #### C MP, CBC #### [address] Calcium [Mass/Vol] 9.6 mg/dL Normal 8.2-10.2 [facility] Comment on above: Performed By: #### C MP, CBC #### [address] Chloride [Moles/Vol] 105 mmol/L Normal 95-114 [facility] Comment on above: Performed By: #### C MP, CBC #### [address] CO2 [Moles/Vol] 26.1 mmol/L Normal 22.0-30.0 [facility] Comment on above: Performed By: #### C MP, CBC #### [address] Creatinine [Mass/Vol] 1.10 mg/dL Normal 0.64-1.27 [facility] Comment on above: Performed By: #### C MP, CBC #### [address] Estimated GFR ( Vani > 60 Normal [facility] Comment on above: Result Comment: GFR estimated reference range: According to KDOQI guidelines, <60 ml/min/1.73m2 is sufficient to diagnose a patient with chronic kidney disease. Performed By: #### C MP, CBC #### [place] [address] [place] Estimated GFR (Non- Am > 60 Normal [facility] Comment on above: Performed By: #### C MP, CBC #### [place] [address] [place] Globulin (S) [Mass/Vol] 2.7 g/dL Normal [facility] Comment on above: Performed By: #### C MP, CBC #### [place] [address] [place] Glucose [Mass/Vol] 102 mg/dL High 70-100 [facility] Comment on above: Result Comment: [place] Glucose Reference Range is dependent on time and content of last meal. Glucose of more than 200 mg/dL in a nonstressed, ambulatory subject supports the diagnosis of Diabetes Mellitus. ADA recommended reference range Performed By: #### C MP, CBC #### [facility] [address] [id number] [place] Potassium [Moles/Vol] 4.5 mmol/L Normal 3.5-5.1 [facility] Comment on above: Performed By: #### C MP, CBC #### [facility] [address] [place] [address] [place] Protein [Mass/Vol] 6.4 g/dL Normal 6.1-7.9 [facility] Comment on above: Performed By: #### C MP, CBC #### [facility] [address] [place] [address] [place] Sodium [Moles/Vol] 140 mmol/L Normal 136-146 [facility] Comment on above: Performed By: #### C MP, CBC #### [facility] [address] [place] [address] [place] Urea nitrogen [Mass/Vol] 17 mg/dL Normal 9-23 [facility] Comment on above: Performed By: #### C MP, CBC #### [facility] [address] [place] [address] [place] Vital Signs Date Time Vital Sign Value Performing Clinician Facility 06-24-2023 13:09-0400 Body temperature 98.6 [degF] Tonia DEVRIES [facility] 06-24-2023 13:09-0400 Diastolic blood pressure 77 mm[Hg] Tonia DEVRIES [facility] 06-24-2023 13:09-0400 Heart rate 69 /min Tonia DEVRIES [facility] 06-24-2023 13:09-0400 Respiratory rate 16 /min Tonia DEVRIES [facility] 06-24-2023 13:09-0400 Systolic blood pressure 132 mm[Hg] Tonia DEVRIES [facility] 05-13-2023 09:10-0500 Blood Pressure Location YAHAIRA LONG [facility] 05-13-2023 09:10-0500 Diastolic blood pressure 74 mm[Hg] YAHAIRA ETHAN [facility] 05-13-2023 09:10-0500 Heart rate 68 /min AYHAIRA ETHAN [facility] 05-13-2023 09:10-0500 Respiratory rate 16 /min YAHAIRA ETHAN [facility] 05-13-2023 09:10-0500 Systolic blood pressure 128 mm[Hg] YAHAIRA ETHAN [facility] 05-05-2023 08:39-0500 Blood Pressure Location Tonia DEVRIES [facility] 05-05-2023 08:39-0500 Diastolic blood pressure 71 mm[Hg] Tonia DEVRIES [facility] 05-05-2023 08:39-0500 Heart rate 67 /min Tonia DEVRIES [facility] 05-05-2023 08:39-0500 Respiratory rate 16 /min Tonia DEVRIES [facility] 05-05-2023 08:39-0500 Systolic blood pressure 129 mm[Hg] Tonia DEVRIES [facility] 03-28-2023 18:00-0500 Body height 182.88 cm Margaret Friasmond Other [facility] 03-28-2023 18:00-0500 Body mass index (BMI) [Ratio] 25.71 kg/m2 Margaret Hayley Other [facility] 03-28-2023 18:00-0500 Body temperature 99.6 [degF] Margaret Hayley Other [facility] 03-28-2023 18:00-0500 Body weight 86 kg Margaret Friasmond Other [facility] 03-28-2023 18:00-0500 Diastolic blood pressure 72 mm[Hg] Margaret Hayley Other [facility] 03-28-2023 18:00-0500 Respiratory rate 18 /min Margaret Friasmond Other [facility] 03-28-2023 18:00-0500 SaO2% (BldA) [Mass fraction] 99 % Margaret Hayley Other [facility] 03-28-2023 18:00-0500 Systolic blood pressure 133 mm[Hg] Margaret Hayley Other [facility] 03-03-2023 09:12-0500 Blood Pressure Location Tonia DEVRIES [facility] 03-03-2023 09:12-0500 Diastolic blood pressure 79 mm[Hg] Tonia DEVRIES [facility] 03-03-2023 09:12-0500 Heart rate 80 /min Tonia DEVRIES [facility] 03-03-2023 09:12-0500 Respiratory rate 16 /min Tonia DEVRIES [facility] 03-03-2023 09:12-0500 Systolic blood pressure 126 mm[Hg] Tonia DEVRIES [facility] 01-17-2023 10:25-0400 Blood Pressure Location Tonia DEVRIES [facility] 01-17-2023 10:25-0400 Diastolic blood pressure 66 mm[Hg] Tonia DEVRIES [facility] 01-17-2023 10:25-0400 Heart rate 62 /min Tonia DEVRIES [facility] 01-17-2023 10:25-0400 Respiratory rate 16 /min Tonia DEVRIES [facility] 01-17-2023 10:25-0400 Systolic blood pressure 121 mm[Hg] Tonia DEVRIES [facility] 12-10-2022 13:19-0400 Blood Pressure Location Tonia DEVRIES [facility] 12-10-2022 13:19-0400 Diastolic blood pressure 88 mm[Hg] Tonia DEVRIES [facility] 12-10-2022 13:19-0400 Heart rate 60 /min Tonia DEVRIES [facility] 12-10-2022 13:19-0400 Systolic blood pressure 137 mm[Hg] Tonia DEVRIES [facility] 10-22-2022 09:07-0400 Blood Pressure Location YAHAIRA ETHAN [facility] 10-22-2022 09:07-0400 Diastolic blood pressure 73 mm[Hg] YAHAIRA ETHAN [facility] 10-22-2022 09:07-0400 Heart rate 60 /min YAHAIRA ETHAN [facility] 10-22-2022 09:07-0400 Systolic blood pressure 118 mm[Hg] YAHAIRA ETHAN [facility] 10-08-2022 09:01-0400 Blood Pressure Location YAHAIRA ETHAN [facility] 10-08-2022 09:01-0400 Diastolic blood pressure 80 mm[Hg] YAHAIRA ETHAN [facility] 10-08-2022 09:01-0400 Heart rate 80 /min YAHAIRA ETHAN [facility] 10-08-2022 09:01-0400 Respiratory rate 16 /min YAHAIRA ETHAN [facility] 10-08-2022 09:01-0400 Systolic blood pressure 130 mm[Hg] YAHAIRA ETHAN [facility] 09-17-2022 09:11-0400 Blood Pressure Location YAHAIRA ETHAN [facility] 09-17-2022 09:11-0400 Diastolic blood pressure 74 mm[Hg] YAHAIRA ETHAN [facility] 09-17-2022 09:11-0400 Heart rate 80 /min YAHAIRA ETHAN [facility] 09-17-2022 09:11-0400 Respiratory rate 16 /min YAHAIRA ETHAN [facility] 09-17-2022 09:11-0400 Systolic blood pressure 128 mm[Hg] YAHAIRA ETHAN [facility] 09-10-2022 08:55-0400 Blood Pressure Location YAHAIRA ETHAN [facility] 09-10-2022 08:55-0400 Diastolic blood pressure 70 mm[Hg] YAHAIRA EHTAN [facility] 09-10-2022 08:55-0400 Heart rate 66 /min YAHAIRA ETHAN [facility] 09-10-2022 08:55-0400 Systolic blood pressure 127 mm[Hg] YAHAIRA ETHAN [facility] 09-03-2022 09:00-0400 Blood Pressure Location YAHAIRA ETHAN [facility] 09-03-2022 09:00-0400 Diastolic blood pressure 74 mm[Hg] YAHAIRA ETHAN [facility] 09-03-2022 09:00-0400 Heart rate 68 /min YAHAIRA ETHAN [facility] 09-03-2022 09:00-0400 Respiratory rate 16 /min YAHAIRA ETHAN [facility] 09-03-2022 09:00-0400 Systolic blood pressure 128 mm[Hg] YAHAIRA ETHAN [facility] 08-27-2022 09:03-0400 Blood Pressure Location YAHAIRA ETHAN [facility] 08-27-2022 09:03-0400 Diastolic blood pressure 76 mm[Hg] YAHAIRA ETHAN [facility] 08-27-2022 09:03-0400 Heart rate 80 /min YAHAIRA ETHAN [facility] 08-27-2022 09:03-0400 Respiratory rate 16 /min YAHAIRA ETHAN [facility] 08-27-2022 09:03-0400 Systolic blood pressure 132 mm[Hg] YAHAIRA ETHAN [facility] 07-26-2022 08:44-0400 Blood Pressure Location Tonia DEVRIES [facility] 07-26-2022 08:44-0400 Diastolic blood pressure 90 mm[Hg] Tonia DEVRIES [facility] 07-26-2022 08:44-0400 Heart rate 68 /min Tonia DEVRIES [facility] 07-26-2022 08:44-0400 Respiratory rate 16 /min Tonia DEVRIES [facility] 07-26-2022 08:44-0400 Systolic blood pressure 128 mm[Hg] Tonia DEVRIES [facility] 03-29-2022 10:45-0500 Body height 182.88 cm Nahid Canchola Other [facility] 03-29-2022 10:45-0500 Body mass index (BMI) [Ratio] 25.09 kg/m2 Nahid Canchola Other [facility] 03-29-2022 10:45-0500 Body weight 83.92 kg Nahid Canchola Other [facility] 01-07-2022 12:22-0400 Blood Pressure Location Tonia DEVRIES [facility] 01-07-2022 12:22-0400 Diastolic blood pressure 71 mm[Hg] Tonia DEVRIES [facility] 01-07-2022 12:22-0400 Heart rate 65 /min Toniapete DEVRIES [facility] 01-07-2022 12:22-0400 Respiratory rate 16 /min Tonia DEVRIES [facility] 01-07-2022 12:22-0400 Systolic blood pressure 124 mm[Hg] Tonia DEVRIES [facility] 09-28-2021 11:00-0400 Body height 182.88 cm Nahid Canchola Other [facility] 09-28-2021 11:00-0400 Body mass index (BMI) [Ratio] 25.49 kg/m2 Nahid Jesika Other [facility] 09-28-2021 11:00-0400 Body weight 85.28 kg Nahid Jesika Other [facility] 08-01-2021 14:00-0400 Body height 182.88 cm Nahid Jesika Other [facility] 08-01-2021 14:00-0400 Body mass index (BMI) [Ratio] 25.49 kg/m2 Nahid Jesika Other [facility] 08-01-2021 14:00-0400 Body weight 85.28 kg Nahid Jesika Other [facility] 07-18-2021 12:00-0400 Body height 182.88 cm Nahid Jesika Other [facility] 07-18-2021 12:00-0400 Body mass index (BMI) [Ratio] 26.04 kg/m2 Nahid Jesika Other [facility] 07-18-2021 12:00-0400 Body weight 87.09 kg Nahid Jesika Other [facility] 04-23-2021 15:45-0500 Body height 182.88 cm Nahid Jesika Other [facility] 04-23-2021 15:45-0500 Body mass index (BMI) [Ratio] 26.04 kg/m2 Nahid Jesika Other [facility] 04-23-2021 15:45-0500 Body weight 87.09 kg Nahid Jesika Other [facility] 03-12-2021 09:00-0500 Body height 182.88 cm Nahid Jesika Other [facility] Other 03-12-2021 09:00-0500 Body mass index (BMI) [Ratio] 26.12 kg/m2 Nahid Jesika Other [facility] Other 03-12-2021 09:00-0500 Body weight 87.36 kg Nahid Jesika Other [facility] Other 02-12-2021 14:00-0500 Body height 182.88 cm Nahid Jesika Other [facility] Other 02-12-2021 14:00-0500 Body mass index (BMI) [Ratio] 26.04 kg/m2 Nahid Jesika Other [facility] Other 02-12-2021 14:00-0500 Body weight 87.09 kg Nahid Jesika Other [facility] Other 01-10-2021 12:00-0400 Body height 182.88 cm Nahid Jesika Other [facility] Other 01-10-2021 12:00-0400 Body mass index (BMI) [Ratio] 26.15 kg/m2 Nahid Jesika Other [facility] Other 01-10-2021 12:00-0400 Body weight 87.45 kg Nahid Jesika Other [facility] Other Encounters Encounter Date Encounter Type Care Provider Facility Start: 09-30-2023 ambulatory Tonia Marcial ty:TYRONE Hernandez Start: 08-20-2023 End: 08-20-2023 ambulatory FLAQUITA SEE Not Available Start: 06-24-2023 End: 06-25-2023 ambulatory Tonia DEVRIES Facility:[facility] Start: 06-24-2023 End: 06-24-2023 Lab Drop off Tonia DEVRIES [facility] Start: 06-24-2023 End: 06-24-2023 Patient encounter procedure Tonia Christina BARB [facility] Start: 05-13-2023 End: 05-14-2023 ambulatory YAHAIRA LONG Facility:[facility] Start: 05-13-2023 End: 05-13-2023 Patient encounter procedure YAHAIRA LONG [facility] Start: 05-05-2023 End: 05-06-2023 ambulatory Tonia Christina BARB Facility:[facility] Start: 05-05-2023 End: 05-05-2023 Patient encounter procedure Tonia R BARB [facility] Start: 04-28-2023 End: 04-29-2023 ambulatory Tonia DEVRIES Facility:[facility] Start: 04-02-2023 End: 04-02-2023 ambulatory CATRACHO VUMEREDITHChristina Not Available Start: 03-28-2023 End: 03-28-2023 ambulatory Margaret Hardy Other [facility] Other Start: 03-28-2023 Office outpatient vi sit 15 minutes Margaret Hardy [facility] Start: 03-10-2023 End: 03-11-2023 ambulatory Tonia DEVRIES Facility:[facility] Start: 03-10-2023 End: 03-10-2023 Patient encounter procedure Tonia DEVRIES [facility] [place] Start: 03-03-2023 End: 03-04-2023 ambulatory Toniapete DEVRIES Facility:[facility] Start: 03-03-2023 End: 03-03-2023 Patient encounter procedure Toniapete DEVRIES [facility] Start: 02-26-2023 End: 02-27-2023 ambulatory Tonia Christina DEVRIES Facility:[facility] Start: 02-26-2023 End: 02-26-2023 Patient encounter procedure Tonia R DEVRIES [facility] [place] Start: 02-20-2023 End: 02-21-2023 ambulatory Tonia Christina BARB Facility:[id number] Start: 01-17-2023 End: 01-18-2023 ambulatory Toniapete DEVRIES Facility:[facility] Start: 01-17-2023 End: 01-17-2023 Patient encounter procedure Tonia R DEVRIES [facility] [employer] Start: 01-10-2023 ambulatory Tonia DEVRIES Facili ty:[facility] Start: 01-09-2023 End: 01-10-2023 ambulatory Tonia Christina DEVRIES Facility:[id number] Start: 12-10-2022 End: 12-11-2022 ambulatory Tonia R DEVRIES Facility:[facility] Start: 12-10-2022 End: 12-11-2022 ambulatory Tonia R DEVRIES Facility:[facility] Start: 12-10-2022 End: 12-10-2022 Patient encounter procedure Tonia DEVRIES [facility] [place] Start: 12-09-2022 End: 12-10-2022 ambulatory Tonia DEVRIES Facility:[facility] Start: 12-09-2022 End: 12-09-2022 Lab Drop off Tonia R DEVRIES [facility] Start: 12-09-2022 End: 12-09-2022 Patient encounter procedure Tonia Vasquez DEVRIES [facility] Start: 10-22-2022 End: 10-23-2022 ambulatory YAHAIRA E ETHAN [facility] Start: 10-22-2022 End: 10-22-2022 Patient encounter procedure YAHAIRA E ETHAN [facility] Start: 10-14-2022 End: 10-15-2022 ambulatory Tonia DEVRIES [facility] Start: 10-08-2022 End: 10-09-2022 ambulatory YAHAIRA E ETHAN Facility:[facility] Start: 10-08-2022 End: 10-08-2022 Patient encounter procedure YAHAIRA E ETHAN [facility] Start: 09-30-2022 ambulatory Tonia DEVRIES Facili ty:[facility] Start: 09-17-2022 End: 09-18-2022 ambulatory YAHAIRA E ETHAN Facility:[facility] Start: 09-17-2022 End: 09-17-2022 Patient encounter procedure YAHAIRA E ETHAN [facility] Start: 09-10-2022 End: 09-11-2022 ambulatory YAHAIRA E ETHAN Facility:[facility] Start: 09-10-2022 End: 09-10-2022 Patient encounter procedure YAHAIRA E ETHAN [facility] Start: 09-03-2022 End: 09-04-2022 ambulatory YAHAIRA Lexx LONG Facility:[facility] Start: 09-03-2022 End: 09-03-2022 Patient encounter procedure YAHAIRA Lexx LONG [facility] Start: 08-27-2022 End: 08-28-2022 ambulatory YAHAIRA E ETHAN Facility:[facility] Start: 08-27-2022 End: 08-28-2022 ambulatory YAHAIRA E ETHAN Facility:[facility] Start: 08-27-2022 End: 08-27-2022 Lab Drop off YAHAIRA Lexx LONG [facility] Start: 08-27-2022 End: 08-27-2022 Patient encounter procedure YAHAIRA Lexx LONG [facility] Start: 07-26-2022 End: 07-26-2022 Patient encounter procedure Tonia DEVRIES [facility] Start: 07-20-2022 Encounter for preprocedural cardiovascular examination DR TONIA DEVRIES . [facility] Start: 07-20-2022 Encounter for preprocedural laboratory examination DR TONIA DEVRIES . [facility] Start: 07-18-2022 End: 07-18-[address] TONIA DEVRIES . Facility:[facility] Start: 07-17-2022 End: 07-18-[address] TONIA DEVRIES . Facility:[facility] Start: 07-17-2022 End: 07-18-2022 Encounter for preprocedural cardiovascular examination DR TONIA DEVRIES . Facility:[facility] Start: 07-16-2022 End: 07-16-2022 Patient encounter procedure Tonia DEVRIES [facility] Start: 06-27-2022 End: 06-28-[address] TONIA DEVRIES . Facility:[facility] Start: 06-10-2022 Office outpatient ne w 45 minutes Mickie Cooper [facility] Start: 06-10-2022 End: 06-10-2022 ambulatory Mickie Cooper Facility:[facility] Start: 06-10-2022 End: 06-10-2022 ambulatory MD Catracho Willis Work Phone: [facility] Work Phone: Start: 06-10-2022 End: 06-10-2022 Patient encounter procedure MD Catracho Willis Work Phone: [facility] Start: 03-29-2022 End: 03-29-2022 ambulatory Nahid Canchola Other [facility] Other Start: 03-29-2022 Patient encounter procedure Nahid Canchola [facility] Start: 03-21-2022 End: 03-21-2022 ambulatory Catracho Willis Facility:[facility] Start: 03-21-2022 End: 03-21-2022 ambulatory MD Catracho Willis Work Phone: [facility] Work Phone: Start: 03-21-2022 End: 03-21-2022 Patient encounter procedure MD Catracho Willis Work Phone: [facility] [address] Work Phone: Start: 01-07-2022 End: 01-07-2022 Patient encounter procedure Tonia DEVRIES [facility] Start: 12-05-2021 End: 12-06-[address] TONIA DEVRIES . Facility:[facility] Start: 12-03-2021 Office outpatient vi sit 15 minutes Nahid Canchola [facility] Start: 12-03-2021 End: 12-03-2021 ambulatory Catracho [facility] Start: 12-03-2021 End: 12-03-2021 Patient encounter procedure MD Catracho Willis Work Phone: [facility] Start: 11-14-2021 End: 11-14-2021 ambulatory Nahid A Jesika Facility:[facility] Start: 11-14-2021 End: 11-14-2021 Patient encounter procedure MD Catracho Willis Work Phone: [facility] [address] Start: 11-01-2021 End: 11-01-2021 ambulatory Nahid Canchola Other [facility] Other Start: 11-01-2021 Telephone encounter Nahid Canchola [facility] Start: 10-26-2021 End: 10-26-2021 ambulatory Nahid A Jesika Facility:[facility] Start: 10-26-2021 End: 10-26-2021 Patient encounter procedure MD Catracho Willis Work Phone: [facility] Start: 10-04-2021 End: 11-15-2021 ambulatory NAHID JESIKA Facility:[facility] Start: 09-28-2021 End: 09-28-2021 ambulatory Nahid Canchola Other [facility] Other Start: 09-28-2021 Postop follow up vis it related to original px Nahid Jesika [facility] Start: 08-17-2021 End: 08-17-2021 ambulatory Nahid Jesika Other [facility] Other Start: 08-17-2021 Postop follow up vis it related to original px Nahid Jesika [facility] Start: 08-01-2021 End: 08-01-2021 ambulatory Nahid A Jesika [facility] Other Start: 08-01-2021 Postop follow up vis it related to original px Nahid Canchola [facility] Start: 07-31-2021 End: 07-31-2021 ambulatory Nhaid Canchola Other [facility] Other Start: 07-31-2021 Telephone encounter Nahid MERRILL [facility] Start: 07-18-2021 End: 07-18-2021 ambulatory Nahid Canchola Other [facility] Other Start: 07-18-2021 Postop follow up vis it related to original px Nahid Canchola [facility] Start: 07-05-2021 End: 07-05-2021 ambulatory Catracho Naderer Facility:[facility] Start: 07-03-2021 End: 07-03-2021 ambulatory Catracho Kellimeredithr [facility] Other Start: 07-03-2021 Telephone encounter Nahid MERRILL [facility] Start: 07-02-2021 Encounter for other preprocedural examination Nahid Canchola [facility] Start: 07-02-2021 Office outpatient vi sit 25 minutes Nahid Canchola [facility] Start: 07-02-2021 End: 07-02-2021 ambulatory Catracho Rodriguezr [facility] Other Start: 06-11-2021 End: 06-11-2021 ambulatory Nahid Canchola Other [facility] Other Start: 06-11-2021 Telephone encounter Nahid MERRILL [facility] Start: 05-28-2021 End: 05-28-2021 ambulatory Nahid Canchola Other [facility] Other Start: 05-28-2021 Telephone encounter Nahid MERRILL [facility] Start: 04-23-2021 End: 04-23-2021 ambulatory Nahid Canchola Other [facility] Other Start: 04-23-2021 Office outpatient vi sit 15 minutes Nahid Jesika [facility] Start: 03-12-2021 End: 03-12-2021 ambulatory Nahiddarling Canchola Other [facility] Start: 03-12-2021 Office outpatient vi sit 15 minutes Nahid Jesika [facility] Start: 02-12-2021 End: 02-12-2021 ambulatory Nahid Canchola Other [facility] Start: 02-12-2021 Office outpatient vi sit 15 minutes Nahid Jesika [facility] Start: 02-05-2021 End: 02-05-2021 ambulatory Les Paul Other [facility] Start: 02-05-2021 Telephone encounter Les Paul [facility] Start: 01-10-2021 Office outpatient vi sit 25 minutes Nahid Jesika [facility] Start: 08-13-2018 Emergency department patient visit [facility] Procedures Date Procedure Procedure Detail Performing Clinician Start: 06-24-2023 Transurethral cystoscopy Tonia DEVRIES Start: 02-20-2023 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 Comment on above: Performed By: #### P SAD #### [facility] [address] [place] [address] Dr. Viktoria Nuñez Start: 06-10-2022 Plain X-ray of right shoulder MD Catracho Willis Work Phone: Start: 03-21-2022 MR lumbar spine wo con MD Catracho Willis Work Phone: Start: 12-05-[address] DENICE DEVRIES . Comment on above: Performed By: #### P SAD #### [facility] [address] [place] [address] Dr. Viktoria Nuñez Start: 12-03-2021 X-ray of left knee MD Vickie Willis Work Phone: Start: 11-14-2021 MRI of left femur MD Geoffrey Willis Work Phone: Start: 11-14-2021 XR pre/post mri xray MD Catracho Willis Work Phone: Start: 10-26-2021 X-ray of lumbar spin e, four views MD Catracho Willis Work Phone: Start: 03-24-2021 Arthroplasty of knee Max DEVRIES Start: 10-15-2013 Cystoscopy Tonia GOMEZ Transrectal biopsy o f prostate using ultrasound guidance Tonia DEVRIES Plan of Treatment Date Care Activity Detail Author Start: 11-14-2021 MRI of left femur MR femur LT wo con [facility] Start: 11-14-2021 XR pre/post mri xray XR pre/post mri xray [facility] Start: 11-14-2021 End: 11-14-2021 Patient encounter procedure Departed Clinical [facility] [address] Immunizations Immunization Date Immunization Notes Care Provider Carina david 05-13-2023 bacillus calmette-kely vaccine YAHAIRA LONG [facility] 05-05-2023 bacillus calmette-kely vaccine Tonia DEVRIES [facility] 04-28-2023 bacillus calmette-kely vaccine Tonia DEVRIES [facility] 10-22-2022 bacillus calmette-kely vaccine YAHAIRACHERYL LONG [facility] 10-14-2022 bacillus calmette-kely vaccine YAHAIRACHERYL LONG [facility] Comment on above: Early/Late Reason: E vijay/Late Reason: Other : Late documentation. Did not enter correct info 10-14-2022 bacillus calmette-kely vaccine YAHAIRA ETHAN [facility] 10-08-2022 bacillus calmette-kely vaccine YAHAIRA ETHAN [facility] 09-17-2022 bacillus calmette-kely vaccine YAHAIRA ETHAN [facility] 09-10-2022 bacillus calmette-kely vaccine YAHAIRA ETHAN [facility] 09-03-2022 bacillus calmette-kely vaccine YAHAIRA ETHAN [facility] 08-27-2022 bacillus calmette-kely vaccine YAHAIRA ETHAN [facility] 02-28-2021 COVID-19 mRNASue (Pfizer) MD Catracho Willis Work Phone: [facility] 01-10-2021 Kenalog -40 mg Nahid Canchola Other [facility] 09-01-2020 SARS-CoV-2 (COVID-19 ) mRNA BNT-162b2 vax YAHAIRA ETHAN [facility] 08-28-2020 COVID-19 Sue Lux (Pfizer) MD Catracho Willis Work Phone: [facility] 08-11-2020 COVID-19 Sue Lux (Pfizer) MD Catracho Willis Work Phone: [facility] NEGATED: Highlighted row has not occurred!06-24-2023 influenza virus vaccine, unspecified formulation Tonia DEVRIES [facility] Payers Date Payer Category Payer Unknown [id number] 2021 Medicaid [id number] . [id number] 2021 Self-pay [id number] 2021 Unknown [id number] 2018 Unknown [id number] 1960 Medicare [id number] . [id number] 1954 Unknown [id number] 2.16.8 40.1.021760.3.579.2.173 1954 Unknown [id number] 2.16.84 0.1.027287.3.579.2.593 1954 Unknown [id number] 2.16.84 0.1.624184.3.579.2.593 1954 Unknown [id number] 2.16.84 0.1.789325.3.579.2.593 1954 Unknown [id number] 2.16.84 0.1.176909.3.579.2.593 1954 Unknown [id number] 2.16.84 0.1.455173.3.579.2.593 1954 Unknown [id number] 2.16.84 0.1.830069.3.579.2.593 1954 Unknown [id number] 2.16.8 40.1.886688.3.579.2.727 1954 Unknown [id number] 2.16.8 40.1.393786.3.579.2.727 1954 Unknown [id number] 2.16.8 40.1.092307.3.579.2.727 1954 Unknown [id number] 2.16.8 40.1.381809.3.579.2.727 1954 Unknown [id number] 2.16.8 40.1.504407.3.579.2.727 1954 Unknown [id number] 2.16.8 40.1.055861.3.579.2.727 1954 Unknown [id number] 2.16.8 40.1.646927.3.579.2.727 1954 Unknown [id number] 2.16.8 40.1.373228.3.579.2.727 1954 Unknown [id number] 2.16.8 40.1.323808.3.579.2.727 1954 Unknown [id number] 2.16.8 40.1.829333.3.579.2.727 1954 Unknown [id number] 2.16.8 40.1.549056.3.579.2.727 1954 Unknown [id number] 2.16.8 40.1.709049.3.579.2.727 1954 Unknown [id number] 2.16.8 40.1.161245.3.579.2.727 1954 Unknown [id number] 2.16.8 40.1.952663.3.579.2.727 1954 Unknown [id number] 2.16.8 40.1.831591.3.579.2.727 1954 Unknown [id number] 2.16.8 40.1.852615.3.579.2.72 1954 Unknown [id number] 2.16.8 40.1.625622.3.579.2.72 1954 Unknown [id number] 2.16.8 40.1.999051.3.579.2.72 1954 Unknown [id number] 2.16.8 40.1.966806.3.579.2.72 1954 Unknown [id number] 2.16.8 40.1.086138.3.579.2. 1954 Unknown [id number] 2.16.8 40.1.879545.3.579.2. 1954 Unknown [id number] 2.16.8 40.1.745899.3.579.2.72 1954 Unknown [id number] 2.16.8 40.1.347497.3.579.2. 1954 Unknown [id number] 2.16.8 40.1.752776.3.579.2.727 1954 Unknown [id number] 2.16.8 40.1.753761.3.579.2. 1954 Unknown [id number] 2.16.8 40.1.569960.3.579.2.72 1954 Unknown [id number] 2.16.8 40.1.170049.3.579.2.72 1954 Unknown [id number] 2.16.8 40.1.509795.3.579.2.727 1954 Unknown [id number] 2.16.84 0.1.678334.3.579.2.1259 1954 Unknown [id number] 2.16.84 0.1.492468.3.579.2.1259 Unknown [place] [id number] Unknown [id number] 2.16.8 40.1.010647.3.579.2.531 Unknown [id number] 2.16.8 40.1.703755.3.579.2.531 Unknown [id number] 2.16.8 40.1.682931.3.579.2.531 Unknown [id number] 2.16.8 40.1.341709.3.579.2.531 Unknown [id number] 2.16.8 40.1.302938.3.579.2.531 Unknown [id number] 2.16.8 40.1.488463.3.579.2.531 Unknown [id number] 2.16.8 40.1.655252.3.579.2.531 Unknown [id number] 2.16.8 40.1.683643.3.579.2.531 Unknown [id number] 2.16.8 40.1.478527.3.579.2.531 Social History Date Type Detail Facility Sex Assigned At [facility] Start: 07-05-2021 End: 07-05-2021 Tobacco smoking status NHIS Smoker (finding) [facility] Start: 1955 Sex Assigned At Male [facility] Start: 09-05-2020 Tobacco smoking status Never s moked tobacco (finding) [facility] Start: 06-05-2022 End: 06-24-2023 Tobacco smoking status Heavy tobacco smoker (finding) [facility] Tobacco smoking status Never [facility] Medical Equipment Procedure Code Equipment Code Equipment Origin al Text Equipment Identifier Dates Arthroplasty, knee, total, minimally invasive Orthopaedic cement, non-medicated ([id number] Start: 07-05-2021 Arthroplasty, knee, total, minimally invasive Coated knee femur prosthesis ()[id number] FDA Start: 07-05-2021 Arthroplasty, knee, total, minimally invasive Tibial insert ()[id number] FDA Start: 07-05-2021 Arthroplasty, knee, total, minimally invasive Polyethylene patella prosthesis ()[id number] FDA Start: 07-05-2021 Arthroplasty, knee, total, minimally invasive Uncoated knee tibia prosthesis, metallic ()[id number] FDA Start: 07-05-2021 Functional Status Date Assessment Result Facility 06-24-2023 Functional Status N/A [facility] 05-13-2023 Functional Status N/A [facility] 05-05-2023 Functional Status N/A [facility] 03-03-2023 Functional Status N/A [facility] 01-17-2023 Functional Status N/A [facility] 12-10-2022 Functional Status N/A [facility] 10-22-2022 Functional Status N/A [facility] 10-08-2022 Functional Status N/A [facility] 09-17-2022 Functional Status N/A [facility] 09-10-2022 Functional Status N/A [facility] 09-03-2022 Functional Status N/A [facility] 08-27-2022 Functional Status N/A [facility] 07-26-2022 Functional Status N/A [facility] 01-07-2022 Functional Status N/A [facility]-28-2010 to 06-24-2023 Note Date & Type Note Facility 06-24-2023 Hospital Discharge instructions Patient Education 06/24/2023 13:20:41 Cancer Screening for Men Cancer Screening for Men A cancer screening is a test or exam that checks for cancer. Your health care provider will recommend specific cancer screenings based on your age, medical history (including risk factors), and family history of cancer. Work with your health care provider to create a cancer screening schedule that protects your health. Who should have screening? All men should be considered for screening of certain cancers, including colorectal cancer, prostate cancer, lung cancer, and skin cancer. Your health care provider may recommend screenings for other types of cancer if: You had cancer before. You have a family member with cancer. You have abnormal genes that could increase the risk of cancer. You have risk factors for certain cancers, such as current or past use of tobacco products, or being overweight. When you should be screened for cancer depends on: Your age. Your medical history and your family's medical history. Certain lifestyle factors, such as smoking or other use of tobacco products. Environmental exposure, such as to asbestos. How is screening done? Colorectal cancer All adults should have screenings starting at age 45 and continuing until age 75. Your health care provider may recommend screening before age 45. You will have tests every 1 10 years, depending on your results and the type of screening test. People at increased risk should start screening at an earlier age. Talk with your health care provider about which screening test is right for you and how often you should be screened. Colorectal cancer screening looks for cancer or for growths called polyps that often form before cancer starts. Tests to look for cancer or polyps include: Colonoscopy or flexible sigmoidoscopy. For these procedures, a flexible tube with a small camera is inserted into the rectum. CT colonography. This test uses X-rays and a contrast dye to check the colon for polyps. If a polyp is found, you may need to have a colonoscopy so the polyp can be located and removed. Tests to look for cancer in the stool (feces) include: Guaiac-based fecal occult blood test (FOBT). This test can find blood in stool. It can be done at home with a kit. Fecal immunochemical test (FIT). This test can find blood in stool. For this test, you will need to collect stool samples at home. Stool DNA test. This test looks for blood in stool and any changes in DNA that can lead to colon cancer. For this test, you will need to collect a stool sample at home and send it to a lab. Prostate cancer Prostate cancer screening for men with average risk may start at age 50. Men with risk factors may need to be screened earlier, at ages 40 45. Talk with your health care provider about whether screening is right for you and, if so, how often you should be screened. Prostate cancer screening is done with blood tests and a digital rectal exam. During this exam, a health care provider uses a gloved finger to check prostate size. You may need to be screened for prostate cancer if: You have risk factors for prostate cancer, such as being or having a close family member with prostate cancer. You have had gene changes or a genetic condition that was passed on to you from a parent (inherited). These gene changes or genetic conditions include BRCA1 or BRCA2 gene mutations or Obrien syndrome. You have symptoms of prostate cancer, such as problems urinating or problems getting or keeping an erection (erectile dysfunction). When you have been screened for prostate cancer, future screening may be recommended based on the results of your blood tests. Lung cancer Lung cancer screening is done with a CT scan that looks for abnormal changes in the lungs. Discuss lung cancer screening with your health care provider if you are 50 80 years old and if any of the following apply to you: You currently smoke. You used to smoke heavily. You have a smoking history of 1 pack of cigarettes a day for 20 years or 2 packs a day for 10 years. You have quit smoking within the past 15 years. You may need to be screened every year if you smoke heavily or if you used to smoke. Skin cancer Skin cancer screening is done by checking the skin for unusual moles or spots and any changes in existing moles. Your health care provider should check your skin for signs of skin cancer at every physical exam. You should check your skin every month and tell your health care provider right away if anything looks unusual. Men with a gjzajq-lnwo-raukfa risk for skin cancer may want to see a senior medical billing specialist (sound engineering technician) for an annual body check. What are the benefits of screening? Cancer screening is done to look for cancer in the very early stages, before it spreads and becomes harder to treat and before you would start to notice symptoms. Finding cancer early improves the chances of successful treatment. It may save your life. Where to find more information [place] [employer]: www.cancer.org Centers for Disease Control and Prevention: www.cdc.gov National Cancer Hol[place]: www.cancer.gov Contact a health care provider if: You have concerns about any signs or symptoms of cancer. These may include: Skin problems. You may have: ?Moles of an unusual shape or color. ?Changes in existing moles. ?A sore on your skin that does not heal. Tiredness (fatigue) that does not go away. Losing weight without trying. Blood in your urine or stool. Problems with urination. You may have: ?Changes in urination habits. ?Painful urination. Painful ejaculation. Problems with coughing or breathing. These may include: ?Coughing or trouble breathing that does not go away. ?Coughing up blood. Frequent pain or cramping in your abdomen. Summary Your health care provider will recommend specific cancer screenings based on your age, medical history, and family history of cancer. Work with your health care provider to create a cancer screening schedule that protects your health. Finding cancer early improves the chances of successful treatment. It may save your life. Contact a health care provider if you have concerns about any signs or symptoms of cancer. This information is not intended to replace advice given to you by your health care provider. Make sure you discuss any questions you have with your health care provider. Document Revised: 08/06/2021 Document Reviewed: 02/04/2020 [employer] Patient Education 2022 [employer]. Follow Up Care 06/16/2023 14:01:03 With:BARB RAMIREZ, Tonia Vasquez, URL Address: [facility] [address] , [place] [address] [phone] When: Unknown [facility] 06-24-2023 Evaluation + Plan note Diagnostic Tests [facility]ys[facility] Fish [facility] Urine Cyto ([facility]) 06/24/23 [facility] 05-13-2023 Hospital Discharge instructions Patient Education 05/13/2023 09:54:46 Bladder Cancer Bladder Cancer Bladder cancer is a condition where abnormal tissue (a tumor) grows in the bladder. The bladder is the organ that holds urine. Two tubes (ureters) carry urine from the kidneys to the bladder. The bladder wall is made of layers of tissue. Cancer that spreads through these layers of the bladder wall becomes more difficult to treat. What increases the risk? The following factors may make you more likely to develop this condition: Smoking. Working where there are risks (occupational exposures), such as working with rubber, leather, clothing fabric, dyes, chemicals, or paint. Being 55 years of age or older. Being male. Having long-term bladder inflammation. Having a history of cancer. This includes: ?A family history of bladder cancer. ?Having had bladder cancer before. ?Having had certain treatments for cancer before, such as: ?Medicines to kill cancer cells (chemotherapy). ?Strong X-ray beams or high-energy capsules to kill cancer cells and shrink tumors (radiation therapy). Having been exposed to arsenic. This is a poisonous substance. What are the signs or symptoms? Early symptoms of this condition include: Blood in your urine. Pain when urinating. Infections of your urinary system (urinary tract infections or UTIs) that happen often. Having to urinate sooner or more often than normal. Late symptoms of this condition include: Not being able to urinate. Pain on one side of your lower back. Loss of appetite. Weight loss. Tiredness (fatigue). Swelling in your feet. Bone pain. How is this diagnosed? This condition is diagnosed based on: Your medical history. A physical exam. Lab tests, such as urine tests. Imaging tests. Your symptoms. You may also have other tests or procedures, such as: A cystoscopy. This involves putting a narrow tube into your urethra. The urethra is the organ that carries urine from your bladder to the outside of your body. This procedure is done to view the lining of your bladder for tumors. A biopsy. This involves removing a tissue sample to look at under a microscope to check for cancer. Blood tests or imaging tests may be needed. These show how far into the bladder wall cancer has grown, and if cancer has spread to any other parts of your body. Tests may include: CT scan. MRI. Bone scan. X-ray. How is this treated? Your health care provider may recommend one or more types of treatment based on the stage of your cancer. The most common treatments are: Surgery to remove the cancer. Types of surgeries include: ?Removing a tumor on the inside wall of the bladder (transurethral resection). ?Removing the bladder (cystectomy). Radiation therapy. This is often combined with chemotherapy. Chemotherapy. Immunotherapy. This uses medicines to help your body's disease-fighting system (immune system) destroy cancer cells. Follow these instructions at home: Take wnaz-och-ckimmko and prescription medicines only as told by your health care provider. If you were prescribed an antibiotic medicine, take it as told by your health care provider. Do not stop using the antibiotic even if you start to feel better. Eat a healthy diet. Some treatments might affect your appetite. Do not use any products that contain nicotine or tobacco. These products include cigarettes, chewing tobacco, and vaping devices, such as e-cigarettes. If you need help quitting, ask your health care provider. Consider joining a support group. This may help you learn to deal with the stress of having bladder cancer. Tell your cancer care team if you develop side effects. Your team may be able to recommend ways to get relief. Keep all follow-up visits. This is important. Where to find more information [place] [employer] (ACS): cancer.org National Cancer [place] (NCI): cancer.gov Contact a health care provider if: You have symptoms of a UTI. These include: ?Fever. ?Chills. ?Weakness. ?Muscle aches. ?Pain in your abdomen. ?Urge to urinate that is stronger and happens more often than normal. ?Burning in the bladder or urethra when you urinate. Get help right away if: There is blood in your urine. You cannot urinate. You have severe pain or other symptoms that do not go away. Summary Bladder cancer is a condition where tumors grow in the bladder. Diagnosis is based on your medical history, a physical exam, lab tests, imaging tests, and your symptoms. Your health care provider may recommend one or more types of treatment based on the stage of your cancer. Consider joining a support group. This may help you learn to deal with the stress of having bladder cancer. This information is not intended to replace advice given to you by your health care provider. Make sure you discuss any questions you have with your health care provider. Document Revised: 02/18/2022 Document Reviewed: 02/18/2022 [employer] Patient Education 2022 [employer]. Follow Up Care 03/28/2023 10:45:13 With:[facility] Address: [address] [place] [address] Business (1) When: Unknown Comments:for procedure as scheduled [facility] 05-05-2023 Hospital Discharge instructions Patient Education 05/05/2023 08:51:28 Chemotherapy Chemotherapy Chemotherapy is a cancer treatment. It uses medicines to slow down or stop the growth of cancer. You may have chemotherapy to: Cure your cancer. Prevent the cancer from growing or spreading (metastasizing). Ease symptoms and improve your quality of life (palliative care). Improve the effects of radiation treatment. Shrink a tumor before surgery. Rid the body of cancer cells that remain after having a tumor surgically removed. The length of chemotherapy treatment depends on many factors, including: The type and stage of your cancer. How you respond to the chemotherapy. Your side effects. What are the risks? Generally, this is a safe treatment. However, problems may occur, including: Infection. Bleeding. Allergic reactions to medicines. You may have side effects from chemotherapy. What side effects you have depend on a variety of factors, including: The type of chemotherapy medicine used. Your dosage. How long the medicine is used for. Your overall health. What happens before treatment? You will meet with your cancer care team to discuss: ?Your treatment schedule. ?How your chemotherapy medicine will be given. ?Common side effects and how to prevent or treat them, which may include being given medicines. You may have blood tests. What happens during treatment? Chemotherapy may be given continuously over time, or it may be given in cycles. Some common ways chemotherapy may be given include: As a pill or capsule. As a shot (injection). As a skin (topical) cream. As a special wafer that is put in your body where the cancer is. The wafer contains chemotherapy medicine. As an injection into the cerebrospinal fluid (CSF) in the brain or spinal cord (intraventricular or intrathecal chemotherapy). As an installation into the intraperitoneal (abdominal) cavity. Through a small, thin tube (catheter). There are different kinds of catheters. You might have one that: ?Goes into a vein (intravenous catheter). An IV may be inserted into a vein each time you get a treatment or it can be used over several days. ?Goes into a vein in your neck that leads to a large vein close to your heart (non-tunneled catheter). This catheter has a risk of infection, so it is used for only a short time. ?Goes into a vein near your elbow (PICC line) and passes through into a large vein in your chest or upper arm. This may be used for weeks or months. ?Connects to an implanted device (port) that is inserted under the skin of your chest (port catheter). The port is attached to a catheter that is passed through into a large vein in your chest or upper arm. The port may stay in place for months or years. ?Goes through the skin of your chest and into a large vein close to your heart (tunneled catheter). This catheter may stay in place for months or years. While you are receiving your chemotherapy medicine, your cancer care team may monitor your blood pressure, heart rate, breathing rate, and blood oxygen level (vital signs) and watch for any problems. Some types of chemotherapy medicine are given only one time. Others are given for months, years, or for life. What can I expect after treatment? After chemotherapy, you may have side effects, such as: Nausea and vomiting. Appetite loss or a change in the way foods taste. Constipation or diarrhea. Fatigue. Increased risk of infections, bruising, or bleeding. Hair loss. Mouth or throat sores. Tingling, pain, or numbness in the hands and feet. Dry, sensitive, itchy, or sore skin. Memory changes. Follow these instructions at home: General instructions If you get chemotherapy through an IV, PICC line, or port, check the site every day for signs of infection. Check for redness, swelling, pain, fluid, or warmth. Wash your hands frequently with soap and water. Scrub your hands for at least 20 seconds. If soap and water are not available, use an alcohol based hand agriculture specialist that contains at least 60% alcohol. Have other members of your household wash their hands often. Chemotherapy medicines leave the body through urine or stool (feces), but they can also be present in other body fluids including vomit, blood, vaginal fluids, and semen for up to 48 hours after receiving the medication. You must carefully follow some safety precautions to prevent harm to others while you are taking these medicines: ?Wash laundry that comes in contact with your body fluids separately. This includes clothing, sheets, and towels. Machine wash laundry twice in hot water with regular laundry detergent. ?Use a condom during vaginal, anal, and oral sex while you are taking chemotherapy medicines. These medicines can stay active in your body for at least 48 hours after you receive treatment. Ask your health care provider how long you should take precautions. ?Practice good bathroom hygiene: ?If possible, use a toilet separate from others in the household. ?Always sit when using the toilet. Close the toilet seat lid before you flush. ?Wash your hands thoroughly with soap and water for at least 20 seconds after each time you use the toilet. Keep all follow-up visits. This is important. Eating and drinking Talk with a dietitian about what you should eat and drink during cancer treatment. Always wash fresh fruits and vegetables well before eating them. Drink enough fluid to keep your urine pale yellow. Medicines Take etub-udg-fvpuhia and prescription medicines only as told by your health care provider. Talk with your health care provider about all medicines, vitamins, and herbal or dietary supplements that you take. Some vitamins and supplements should not be taken during chemotherapy because they may interfere with the treatment. Activity Get plenty of rest. Get regular exercise such as walking, gentle yoga, or caryn chi. Return to your normal activities as told by your health care provider. Ask your health care provider what activities are safe for you. Contact a health care provider if: You have soreness or redness at your injection, IV, or catheter site. You have a headache or stiff neck. You have a cough, cold, or flu-like symptoms. You have painful, frequent, foul-smelling, or bloody urine. You have constipation, diarrhea, or bloody stool. You have uncontrolled nausea or vomiting. You cannot eat because of mouth or throat pain. You have a skin rash or are bleeding or bruising easily or often. Get help right away if: You have a fever. This is important. You have more redness, swelling, pain, fluid, or warmth near your injection, IV, or catheter site. You have bleeding that does not stop. You have a seizure. You have chest pain or difficulty breathing. These symptoms may be an emergency. Get help right away. Call 911. Do not wait to see if the symptoms will go away. Do not drive yourself to the hospital. Summary Chemotherapy is a way to treat cancer. It uses medicines to slow down or stop the growth of cancer. Before treatment, you and your cancer care team will discuss common side effects and how to manage them. The way that you will get chemotherapy medicines depends on your condition and the type of cancer being treated. Take xoec-oyd-cqbqnha and prescription medicines only as told by your health care provider. This information is not intended to replace advice given to you by your health care provider. Make sure you discuss any questions you have with your health care provider. Document Revised: 01/01/2022 Document Reviewed: 01/01/2022 [employer] Patient Education 2022 [employer]. Follow Up Care 03/28/2023 10:43:05 With:BARB RAMIREZ, Tonia Vasquez, URL Address: [facility] [address] , [place] [address]- [phone] When: Unknown Comments:BCG #3/3 on 05/13/23 [facility] 03-28-2023 Evaluation note Encounter Date Diagnosis Assessment Notes Mar, Contact with and (suspected) exposure to covid-19 (ICD-10 - Z20.822) Mar, COVID-19 (ICD-10 - U07.1) Discharge Instructions for COVID-19 (Suspected or Confirmed ) material was printed Plenty fluids, get plenty of rest. Continue home medications as prescribed. Take Tylenol or Motrin as needed for aches pains or fevers. Follow-up with your family physician if no improvement in 2 to 3 days [facility] Other 12-11-2023 Hospital Discharge instructions Patient Education 03/03/2023 10:04:53 Bladder Cancer Bladder Cancer Bladder cancer is a condition where abnormal tissue (a tumor) grows in the bladder. The bladder is the organ that holds urine. Two tubes (ureters) carry urine from the kidneys to the bladder. The bladder wall is made of layers of tissue. Cancer that spreads through these layers of the bladder wall becomes more difficult to treat. What increases the risk? The following factors may make you more likely to develop this condition: Smoking. Working where there are risks (occupational exposures), such as working with rubber, leather, clothing fabric, dyes, chemicals, or paint. Being 55 years of age or older. Being male. Having long-term bladder inflammation. Having a history of cancer. This includes: ?A family history of bladder cancer. ?Having had bladder cancer before. ?Having had certain treatments for cancer before, such as: ?Medicines to kill cancer cells (chemotherapy). ?Strong X-ray beams or high-energy capsules to kill cancer cells and shrink tumors (radiation therapy). Having been exposed to arsenic. This is a poisonous substance. What are the signs or symptoms? Early symptoms of this condition include: Blood in your urine. Pain when urinating. Infections of your urinary system (urinary tract infections or UTIs) that happen often. Having to urinate sooner or more often than normal. Late symptoms of this condition include: Not being able to urinate. Pain on one side of your lower back. Loss of appetite. Weight loss. Tiredness (fatigue). Swelling in your feet. Bone pain. How is this diagnosed? This condition is diagnosed based on: Your medical history. A physical exam. Lab tests, such as urine tests. Imaging tests. Your symptoms. You may also have other tests or procedures, such as: A cystoscopy. This involves putting a narrow tube into your urethra. The urethra is the organ that carries urine from your bladder to the outside of your body. This procedure is done to view the lining of your bladder for tumors. A biopsy. This involves removing a tissue sample to look at under a microscope to check for cancer. Blood tests or imaging tests may be needed. These show how far into the bladder wall cancer has grown, and if cancer has spread to any other parts of your body. Tests may include: CT scan. MRI. Bone scan. X-ray. How is this treated? Your health care provider may recommend one or more types of treatment based on the stage of your cancer. The most common treatments are: Surgery to remove the cancer. Types of surgeries include: ?Removing a tumor on the inside wall of the bladder (transurethral resection). ?Removing the bladder (cystectomy). Radiation therapy. This is often combined with chemotherapy. Chemotherapy. Immunotherapy. This uses medicines to help your body's disease-fighting system (immune system) destroy cancer cells. Follow these instructions at home: Take xauf-ckb-mkgvhks and prescription medicines only as told by your health care provider. If you were prescribed an antibiotic medicine, take it as told by your health care provider. Do notstop using the antibiotic even if you start to feel better. Eat a healthy diet. Some treatments might affect your appetite. Do not use any products that contain nicotine or tobacco. These products include cigarettes, chewing tobacco, and vaping devices, such as e-cigarettes. If you need help quitting, ask your health careprovider. Consider joining a support group. This may help you learn to deal with the stress of having bladdercancer. Tell your cancer care team if you develop side effects. Your team may be able to recommend ways to get relief. Keep all follow-up visits. This is important. Where to find more information [place] [employer] (ACS): cancer.org National Cancer [place] (NCI): cancer.gov Contact a health care provider if: You have symptoms of a UTI. These include: ?Fever. ?Chills. ?Weakness. ?Muscle aches. ?Pain in your abdomen. ?Urge to urinate that is stronger and happens more often than normal. ?Burning in the bladder or urethra when you urinate. Get help right away if: There is blood in your urine. You cannot urinate. You have severe pain or other symptoms that do not go away. Summary Bladder cancer is a condition where tumors grow in the bladder. Diagnosis is based on your medical history, a physical exam, lab tests, imaging tests, and your symptoms. Your health care provider may recommend one or more types of treatment based on the stage of your cancer. Consider joining a support group. This may help you learn to deal with the stress of having bladdercancer. This information is not intended to replace advice given to you by your health care provider. Make sure you discuss any questions you have with your health care provider. Document Revised: 02/18/2022 Document Reviewed: 02/18/2022 [employer] Patient Education 2022 [employer]. Follow Up Care 01/17/2023 11:24:37 With:BARB RAMIREZ, Tonia Vasquez, URL Address: [facility] [address] , [place] [address]- When: Unknown Comments:After BCG treatments. [facility] [place] 10-27-2023 Hospital Discharge instructions Patient Education 01/17/2023 10:56:06 Bladder Cancer Bladder Cancer Bladder cancer is a condition where abnormal tissue (a tumor) grows in the bladder. The bladder is the organ that holds urine. Two tubes (ureters) carry urine from the kidneys to the bladder. The bladder wall is made of layers of tissue. Cancer that spreads through these layers of the bladder wall becomes more difficult to treat. What increases the risk? The following factors may make you more likely to develop this condition: Smoking. Working where there are risks (occupational exposures), such as working with rubber, leather, clothing fabric, dyes, chemicals, or paint. Being 55 years of age or older. Being male. Having long-term bladder inflammation. Having a history of cancer. This includes: ?A family history of bladder cancer. ?Having had bladder cancer before. ?Having had certain treatments for cancer before, such as: ?Medicines to kill cancer cells (chemotherapy). ?Strong X-ray beams or high-energy capsules to kill cancer cells and shrink tumors (radiation therapy). Having been exposed to arsenic. This is a poisonous substance. What are the signs or symptoms? Early symptoms of this condition include: Blood in your urine. Pain when urinating. Infections of your urinary system (urinary tract infections or UTIs) that happen often. Having to urinate sooner or more often than normal. Late symptoms of this condition include: Not being able to urinate. Pain on one side of your lower back. Loss of appetite. Weight loss. Tiredness (fatigue). Swelling in your feet. Bone pain. How is this diagnosed? This condition is diagnosed based on: Your medical history. A physical exam. Lab tests, such as urine tests. Imaging tests. Your symptoms. You may also have other tests or procedures, such as: A cystoscopy. This involves putting a narrow tube into your urethra. The urethra is the organ that carries urine from your bladder to the outside of your body. This procedure is done to view the lining of your bladder for tumors. A biopsy. This involves removing a tissue sample to look at under a microscope to check for cancer. Blood tests or imaging tests may be needed. These show how far into the bladder wall cancer has grown, and if cancer has spread to any other parts of your body. Tests may include: CT scan. MRI. Bone scan. X-ray. How is this treated? Your health care provider may recommend one or more types of treatment based on the stage of your cancer. The most common treatments are: Surgery to remove the cancer. Types of surgeries include: ?Removing a tumor on the inside wall of the bladder (transurethral resection). ?Removing the bladder (cystectomy). Radiation therapy. This is often combined with chemotherapy. Chemotherapy. Immunotherapy. This uses medicines to help your body's disease-fighting system (immune system) destroy cancer cells. Follow these instructions at home: Take taeq-dlp-emtgfyt and prescription medicines only as told by your health care provider. If you were prescribed an antibiotic medicine, take it as told by your health care provider. Do notstop using the antibiotic even if you start to feel better. Eat a healthy diet. Some treatments might affect your appetite. Do not use any products that contain nicotine or tobacco. These products include cigarettes, chewing tobacco, and vaping devices, such as e-cigarettes. If you need help quitting, ask your health careprovider. Consider joining a support group. This may help you learn to deal with the stress of having bladdercancer. Tell your cancer care team if you develop side effects. Your team may be able to recommend ways to get relief. Keep all follow-up visits. This is important. Where to find more information [place] [employer] (ACS): cancer.org National Cancer Hol[place] (NCI): cancer.gov Contact a health care provider if: You have symptoms of a UTI. These include: ?Fever. ?Chills. ?Weakness. ?Muscle aches. ?Pain in your abdomen. ?Urge to urinate that is stronger and happens more often than normal. ?Burning in the bladder or urethra when you urinate. Get help right away if: There is blood in your urine. You cannot urinate. You have severe pain or other symptoms that do not go away. Summary Bladder cancer is a condition where tumors grow in the bladder. Diagnosis is based on your medical history, a physical exam, lab tests, imaging tests, and your symptoms. Your health care provider may recommend one or more types of treatment based on the stage of your cancer. Consider joining a support group. This may help you learn to deal with the stress of having bladdercancer. This information is not intended to replace advice given to you by your health care provider. Make sure you discuss any questions you have with your health care provider. Document Revised: 02/18/2022 Document Reviewed: 02/18/2022 [employer] Patient Education 2022 [employer]. Follow Up Care 12/12/2022 09:52:31 With:BARB RAMIREZ, Tonia Vasquez, URL Address: [address] [place] [address] [place] [address]- When: Unknown [facility] Hospital Discharge instructions Patient Education 12/10/2022 13:50:51 Bladder Cancer Bladder Cancer Bladder cancer is a condition where abnormal tissue (a tumor) grows in the bladder. The bladder is the organ that holds urine. Two tubes (ureters) carry urine from the kidneys to the bladder. The bladder wall is made of layers of tissue. Cancer that spreads through these layers of the bladder wall becomes more difficult to treat. What increases the risk? The following factors may make you more likely to develop this condition: Smoking. Working where there are risks (occupational exposures), such as working with rubber, leather, clothing fabric, dyes, chemicals, or paint. Being 55 years of age or older. Being male. Having long-term bladder inflammation. Having a history of cancer. This includes: ?A family history of bladder cancer. ?Having had bladder cancer before. ?Having had certain treatments for cancer before, such as: ?Medicines to kill cancer cells (chemotherapy). ?Strong X-ray beams or high-energy capsules to kill cancer cells and shrink tumors (radiation therapy). Having been exposed to arsenic. This is a poisonous substance. What are the signs or symptoms? Early symptoms of this condition include: Blood in your urine. Pain when urinating. Infections of your urinary system (urinary tract infections or UTIs) that happen often. Having to urinate sooner or more often than normal. Late symptoms of this condition include: Not being able to urinate. Pain on one side of your lower back. Loss of appetite. Weight loss. Tiredness (fatigue). Swelling in your feet. Bone pain. How is this diagnosed? This condition is diagnosed based on: Your medical history. A physical exam. Lab tests, such as urine tests. Imaging tests. Your symptoms. You may also have other tests or procedures, such as: A cystoscopy. This involves putting a narrow tube into your urethra. The urethra is the organ that carries urine from your bladder to the outside of your body. This procedure is done to view the lining of your bladder for tumors. A biopsy. This involves removing a tissue sample to look at under a microscope to check for cancer. Blood tests or imaging tests may be needed. These show how far into the bladder wall cancer has grown, and if cancer has spread to any other parts of your body. Tests may include: CT scan. MRI. Bone scan. X-ray. How is this treated? Your health care provider may recommend one or more types of treatment based on the stage of your cancer. The most common treatments are: Surgery to remove the cancer. Types of surgeries include: ?Removing a tumor on the inside wall of the bladder (transurethral resection). ?Removing the bladder (cystectomy). Radiation therapy. This is often combined with chemotherapy. Chemotherapy. Immunotherapy. This uses medicines to help your body's disease-fighting system (immune system) destroy cancer cells. Follow these instructions at home: Take jqpq-dpu-erpvixn and prescription medicines only as told by your health care provider. If you were prescribed an antibiotic medicine, take it as told by your health care provider. Do notstop using the antibiotic even if you start to feel better. Eat a healthy diet. Some treatments might affect your appetite. Do not use any products that contain nicotine or tobacco. These products include cigarettes, chewing tobacco, and vaping devices, such as e-cigarettes. If you need help quitting, ask your health careprovider. Consider joining a support group. This may help you learn to deal with the stress of having bladdercancer. Tell your cancer care team if you develop side effects. Your team may be able to recommend ways to get relief. Keep all follow-up visits. This is important. Where to find more information [place] [employer] (ACS): cancer.org National Cancer [place] (NCI): cancer.gov Contact a health care provider if: You have symptoms of a UTI. These include: ?Fever. ?Chills. ?Weakness. ?Muscle aches. ?Pain in your abdomen. ?Urge to urinate that is stronger and happens more often than normal. ?Burning in the bladder or urethra when you urinate. Get help right away if: There is blood in your urine. You cannot urinate. You have severe pain or other symptoms that do not go away. Summary Bladder cancer is a condition where tumors grow in the bladder. Diagnosis is based on your medical history, a physical exam, lab tests, imaging tests, and your symptoms. Your health care provider may recommend one or more types of treatment based on the stage of your cancer. Consider joining a support group. This may help you learn to deal with the stress of having bladdercancer. This information is not intended to replace advice given to you by your health care provider. Make sure you discuss any questions you have with your health care provider. Document Revised: 02/18/2022 Document Reviewed: 02/18/2022 [employer] Patient Education 2022 [employer]. Follow Up Care 10/29/2022 16:25:46 With:BARB RAMIREZ, Tonia Vasquez, URL Address: [facility] [address], [place] [address] [phone] When: Unknown Comments:piter PONCE [facility] 08-01-2023 Hospital Discharge instructions Patient Education 10/22/2022 09:21:04 Bladder Cancer Bladder Cancer Bladder cancer is a condition where abnormal tissue (a tumor) grows in the bladder. The bladder is the organ that holds urine. Two tubes (ureters) carry urine from the kidneys to the bladder. The bladder wall is made of layers of tissue. Cancer that spreads through these layers of the bladder wall becomes more difficult to treat. What increases the risk? The following factors may make you more likely to develop this condition: Smoking. Working where there are risks (occupational exposures), such as working with rubber, leather, clothing fabric, dyes, chemicals, or paint. Being 55 years of age or older. Being male. Having long-term bladder inflammation. Having a history of cancer. This includes: ?A family history of bladder cancer. ?Having had bladder cancer before. ?Having had certain treatments for cancer before, such as: ?Medicines to kill cancer cells (chemotherapy). ?Strong X-ray beams or high-energy capsules to kill cancer cells and shrink tumors (radiation therapy). Having been exposed to arsenic. This is a poisonous substance. What are the signs or symptoms? Early symptoms of this condition include: Blood in your urine. Pain when urinating. Infections of your urinary system (urinary tract infections or UTIs) that happen often. Having to urinate sooner or more often than normal. Late symptoms of this condition include: Not being able to urinate. Pain on one side of your lower back. Loss of appetite. Weight loss. Tiredness (fatigue). Swelling in your feet. Bone pain. How is this diagnosed? This condition is diagnosed based on: Your medical history. A physical exam. Lab tests, such as urine tests. Imaging tests. Your symptoms. You may also have other tests or procedures, such as: A cystoscopy. This involves putting a narrow tube into your urethra. The urethra is the organ that carries urine from your bladder to the outside of your body. This procedure is done to view the lining of your bladder for tumors. A biopsy. This involves removing a tissue sample to look at under a microscope to check for cancer. Blood tests or imaging tests may be needed. These show how far into the bladder wall cancer has grown, and if cancer has spread to any other parts of your body. Tests may include: CT scan. MRI. Bone scan. X-ray. How is this treated? Your health care provider may recommend one or more types of treatment based on the stage of your cancer. The most common treatments are: Surgery to remove the cancer. Types of surgeries include: ?Removing a tumor on the inside wall of the bladder (transurethral resection). ?Removing the bladder (cystectomy). Radiation therapy. This is often combined with chemotherapy. Chemotherapy. Immunotherapy. This uses medicines to help your body's disease-fighting system (immune system) destroy cancer cells. Follow these instructions at home: Take gina-udv-ptehemq and prescription medicines only as told by your health care provider. If you were prescribed an antibiotic medicine, take it as told by your health care provider. Do notstop using the antibiotic even if you start to feel better. Eat a healthy diet. Some treatments might affect your appetite. Do not use any products that contain nicotine or tobacco. These products include cigarettes, chewing tobacco, and vaping devices, such as e-cigarettes. If you need help quitting, ask your health careprovider. Consider joining a support group. This may help you learn to deal with the stress of having bladdercancer. Tell your cancer care team if you develop side effects. Your team may be able to recommend ways to get relief. Keep all follow-up visits. This is important. Where to find more information [place] [employer] (ACS): cancer.org National Cancer [place] (NCI): cancer.gov Contact a health care provider if: You have symptoms of a UTI. These include: ?Fever. ?Chills. ?Weakness. ?Muscle aches. ?Pain in your abdomen. ?Urge to urinate that is stronger and happens more often than normal. ?Burning in the bladder or urethra when you urinate. Get help right away if: There is blood in your urine. You cannot urinate. You have severe pain or other symptoms that do not go away. Summary Bladder cancer is a condition where tumors grow in the bladder. Diagnosis is based on your medical history, a physical exam, lab tests, imaging tests, and your symptoms. Your health care provider may recommend one or more types of treatment based on the stage of your cancer. Consider joining a support group. This may help you learn to deal with the stress of having bladdercancer. This information is not intended to replace advice given to you by your health care provider. Make sure you discuss any questions you have with your health care provider. Document Revised: 02/18/2022 Document Reviewed: 02/18/2022 [employer] Patient Education 2022 [employer]. Follow Up Care 09/17/2022 13:12:31 With:BARB RAMIREZ, Tonia Vasquez, URL Address: [address] [place] [address]- When: Unknown [facility] 07-18-2023 Hospital Discharge instructions Patient Education 10/08/2022 08:56:55 Bladder Cancer Bladder Cancer Bladder cancer is a condition where abnormal tissue (a tumor) grows in the bladder. The bladder is the organ that holds urine. Two tubes (ureters) carry urine from the kidneys to the bladder. The bladder wall is made of layers of tissue. Cancer that spreads through these layers of the bladder wall becomes more difficult to treat. What increases the risk? The following factors may make you more likely to develop this condition: Smoking. Working where there are risks (occupational exposures), such as working with rubber, leather, clothing fabric, dyes, chemicals, or paint. Being 55 years of age or older. Being male. Having long-term bladder inflammation. Having a history of cancer. This includes: ?A family history of bladder cancer. ?Having had bladder cancer before. ?Having had certain treatments for cancer before, such as: ?Medicines to kill cancer cells (chemotherapy). ?Strong X-ray beams or high-energy capsules to kill cancer cells and shrink tumors (radiation therapy). Having been exposed to arsenic. This is a poisonous substance. What are the signs or symptoms? Early symptoms of this condition include: Blood in your urine. Pain when urinating. Infections of your urinary system (urinary tract infections or UTIs) that happen often. Having to urinate sooner or more often than normal. Late symptoms of this condition include: Not being able to urinate. Pain on one side of your lower back. Loss of appetite. Weight loss. Tiredness (fatigue). Swelling in your feet. Bone pain. How is this diagnosed? This condition is diagnosed based on: Your medical history. A physical exam. Lab tests, such as urine tests. Imaging tests. Your symptoms. You may also have other tests or procedures, such as: A cystoscopy. This involves putting a narrow tube into your urethra. The urethra is the organ that carries urine from your bladder to the outside of your body. This procedure is done to view the lining of your bladder for tumors. A biopsy. This involves removing a tissue sample to look at under a microscope to check for cancer. Blood tests or imaging tests may be needed. These show how far into the bladder wall cancer has grown, and if cancer has spread to any other parts of your body. Tests may include: CT scan. MRI. Bone scan. X-ray. How is this treated? Your health care provider may recommend one or more types of treatment based on the stage of your cancer. The most common treatments are: Surgery to remove the cancer. Types of surgeries include: ?Removing a tumor on the inside wall of the bladder (transurethral resection). ?Removing the bladder (cystectomy). Radiation therapy. This is often combined with chemotherapy. Chemotherapy. Immunotherapy. This uses medicines to help your body's disease-fighting system (immune system) destroy cancer cells. Follow these instructions at home: Take mqio-opp-wpvvzee and prescription medicines only as told by your health care provider. If you were prescribed an antibiotic medicine, take it as told by your health care provider. Do notstop using the antibiotic even if you start to feel better. Eat a healthy diet. Some treatments might affect your appetite. Do not use any products that contain nicotine or tobacco. These products include cigarettes, chewing tobacco, and vaping devices, such as e-cigarettes. If you need help quitting, ask your health careprovider. Consider joining a support group. This may help you learn to deal with the stress of having bladdercancer. Tell your cancer care team if you develop side effects. Your team may be able to recommend ways to get relief. Keep all follow-up visits. This is important. Where to find more information [place] [employer] (ACS): cancer.org National Cancer [place] (NCI): cancer.gov Contact a health care provider if: You have symptoms of a UTI. These include: ?Fever. ?Chills. ?Weakness. ?Muscle aches. ?Pain in your abdomen. ?Urge to urinate that is stronger and happens more often than normal. ?Burning in the bladder or urethra when you urinate. Get help right away if: There is blood in your urine. You cannot urinate. You have severe pain or other symptoms that do not go away. Summary Bladder cancer is a condition where tumors grow in the bladder. Diagnosis is based on your medical history, a physical exam, lab tests, imaging tests, and your symptoms. Your health care provider may recommend one or more types of treatment based on the stage of your cancer. Consider joining a support group. This may help you learn to deal with the stress of having bladdercancer. This information is not intended to replace advice given to you by your health care provider. Make sure you discuss any questions you have with your health care provider. Document Revised: 02/18/2022 Document Reviewed: 02/18/2022 [employer] Patient Education 2022 [employer]. Follow Up Care 08/01/2022 10:02:51 With:BARB RAMIREZ, Tonia Vasquez, URL Address: [address] [place], [place] [id number]- When: Unknown [facility] 06-27-2023 Hospital Discharge instructions Patient Education 09/17/2022 09:35:40 Bladder Cancer Bladder Cancer Bladder cancer is a condition where abnormal tissue (a tumor) grows in the bladder. The bladder is the organ that holds urine. Two tubes (ureters) carry urine from the kidneys to the bladder. The bladder wall is made of layers of tissue. Cancer that spreads through these layers of the bladder wall becomes more difficult to treat. What increases the risk? The following factors may make you more likely to develop this condition: Smoking. Working where there are risks (occupational exposures), such as working with rubber, leather, clothing fabric, dyes, chemicals, or paint. Being 55 years of age or older. Being male. Having long-term bladder inflammation. Having a history of cancer. This includes: ?A family history of bladder cancer. ?Having had bladder cancer before. ?Having had certain treatments for cancer before, such as: ?Medicines to kill cancer cells (chemotherapy). ?Strong X-ray beams or high-energy capsules to kill cancer cells and shrink tumors (radiation therapy). Having been exposed to arsenic. This is a poisonous substance. What are the signs or symptoms? Early symptoms of this condition include: Blood in your urine. Pain when urinating. Infections of your urinary system (urinary tract infections or UTIs) that happen often. Having to urinate sooner or more often than normal. Late symptoms of this condition include: Not being able to urinate. Pain on one side of your lower back. Loss of appetite. Weight loss. Tiredness (fatigue). Swelling in your feet. Bone pain. How is this diagnosed? This condition is diagnosed based on: Your medical history. A physical exam. Lab tests, such as urine tests. Imaging tests. Your symptoms. You may also have other tests or procedures, such as: A cystoscopy. This involves putting a narrow tube into your urethra. The urethra is the organ that carries urine from your bladder to the outside of your body. This procedure is done to view the lining of your bladder for tumors. A biopsy. This involves removing a tissue sample to look at under a microscope to check for cancer. Blood tests or imaging tests may be needed. These show how far into the bladder wall cancer has grown, and if cancer has spread to any other parts of your body. Tests may include: CT scan. MRI. Bone scan. X-ray. How is this treated? Your health care provider may recommend one or more types of treatment based on the stage of your cancer. The most common treatments are: Surgery to remove the cancer. Types of surgeries include: ?Removing a tumor on the inside wall of the bladder (transurethral resection). ?Removing the bladder (cystectomy). Radiation therapy. This is often combined with chemotherapy. Chemotherapy. Immunotherapy. This uses medicines to help your body's disease-fighting system (immune system) destroy cancer cells. Follow these instructions at home: Take rjmn-hsf-jjiarnc and prescription medicines only as told by your health care provider. If you were prescribed an antibiotic medicine, take it as told by your health care provider. Do notstop using the antibiotic even if you start to feel better. Eat a healthy diet. Some treatments might affect your appetite. Do not use any products that contain nicotine or tobacco. These products include cigarettes, chewing tobacco, and vaping devices, such as e-cigarettes. If you need help quitting, ask your health careprovider. Consider joining a support group. This may help you learn to deal with the stress of having bladdercancer. Tell your cancer care team if you develop side effects. Your team may be able to recommend ways to get relief. Keep all follow-up visits. This is important. Where to find more information [place] [employer] (ACS): cancer.org National Cancer [place] (NCI): cancer.gov Contact a health care provider if: You have symptoms of a UTI. These include: ?Fever. ?Chills. ?Weakness. ?Muscle aches. ?Pain in your abdomen. ?Urge to urinate that is stronger and happens more often than normal. ?Burning in the bladder or urethra when you urinate. Get help right away if: There is blood in your urine. You cannot urinate. You have severe pain or other symptoms that do not go away. Summary Bladder cancer is a condition where tumors grow in the bladder. Diagnosis is based on your medical history, a physical exam, lab tests, imaging tests, and your symptoms. Your health care provider may recommend one or more types of treatment based on the stage of your cancer. Consider joining a support group. This may help you learn to deal with the stress of having bladdercancer. This information is not intended to replace advice given to you by your health care provider. Make sure you discuss any questions you have with your health care provider. Document Revised: 02/18/2022 Document Reviewed: 02/18/2022 [employer] Patient Education 2022 [employer]. Follow Up Care 08/01/2022 09:55:17 With:ETHAN VILLALTA, YAHAIRA Kilgore, URL Address: [address] [place] [address] When:Within 1 Week(s) Comments:Piter SILVERIO #4 [facility] 06-20-2023 Hospital Discharge instructions Patient Education 09/10/2022 09:36:44 Bladder Cancer Bladder Cancer Bladder cancer is a condition where abnormal tissue (a tumor) grows in the bladder. The bladder is the organ that holds urine. Two tubes (ureters) carry urine from the kidneys to the bladder. The bladder wall is made of layers of tissue. Cancer that spreads through these layers of the bladder wall becomes more difficult to treat. What increases the risk? The following factors may make you more likely to develop this condition: Smoking. Working where there are risks (occupational exposures), such as working with rubber, leather, clothing fabric, dyes, chemicals, or paint. Being 55 years of age or older. Being male. Having long-term bladder inflammation. Having a history of cancer. This includes: ?A family history of bladder cancer. ?Having had bladder cancer before. ?Having had certain treatments for cancer before, such as: ?Medicines to kill cancer cells (chemotherapy). ?Strong X-ray beams or high-energy capsules to kill cancer cells and shrink tumors (radiation therapy). Having been exposed to arsenic. This is a poisonous substance. What are the signs or symptoms? Early symptoms of this condition include: Blood in your urine. Pain when urinating. Infections of your urinary system (urinary tract infections or UTIs) that happen often. Having to urinate sooner or more often than normal. Late symptoms of this condition include: Not being able to urinate. Pain on one side of your lower back. Loss of appetite. Weight loss. Tiredness (fatigue). Swelling in your feet. Bone pain. How is this diagnosed? This condition is diagnosed based on: Your medical history. A physical exam. Lab tests, such as urine tests. Imaging tests. Your symptoms. You may also have other tests or procedures, such as: A cystoscopy. This involves putting a narrow tube into your urethra. The urethra is the organ that carries urine from your bladder to the outside of your body. This procedure is done to view the lining of your bladder for tumors. A biopsy. This involves removing a tissue sample to look at under a microscope to check for cancer. Blood tests or imaging tests may be needed. These show how far into the bladder wall cancer has grown, and if cancer has spread to any other parts of your body. Tests may include: CT scan. MRI. Bone scan. X-ray. How is this treated? Your health care provider may recommend one or more types of treatment based on the stage of your cancer. The most common treatments are: Surgery to remove the cancer. Types of surgeries include: ?Removing a tumor on the inside wall of the bladder (transurethral resection). ?Removing the bladder (cystectomy). Radiation therapy. This is often combined with chemotherapy. Chemotherapy. Immunotherapy. This uses medicines to help your body's disease-fighting system (immune system) destroy cancer cells. Follow these instructions at home: Take ftor-efy-altkmgp and prescription medicines only as told by your health care provider. If you were prescribed an antibiotic medicine, take it as told by your health care provider. Do notstop using the antibiotic even if you start to feel better. Eat a healthy diet. Some treatments might affect your appetite. Do not use any products that contain nicotine or tobacco. These products include cigarettes, chewing tobacco, and vaping devices, such as e-cigarettes. If you need help quitting, ask your health careprovider. Consider joining a support group. This may help you learn to deal with the stress of having bladdercancer. Tell your cancer care team if you develop side effects. Your team may be able to recommend ways to get relief. Keep all follow-up visits. This is important. Where to find more information [place] [employer] (ACS): cancer.org National Cancer [place] (NCI): cancer.gov Contact a health care provider if: You have symptoms of a UTI. These include: ?Fever. ?Chills. ?Weakness. ?Muscle aches. ?Pain in your abdomen. ?Urge to urinate that is stronger and happens more often than normal. ?Burning in the bladder or urethra when you urinate. Get help right away if: There is blood in your urine. You cannot urinate. You have severe pain or other symptoms that do not go away. Summary Bladder cancer is a condition where tumors grow in the bladder. Diagnosis is based on your medical history, a physical exam, lab tests, imaging tests, and your symptoms. Your health care provider may recommend one or more types of treatment based on the stage of your cancer. Consider joining a support group. This may help you learn to deal with the stress of having bladdercancer. This information is not intended to replace advice given to you by your health care provider. Make sure you discuss any questions you have with your health care provider. Document Revised: 02/18/2022 Document Reviewed: 02/18/2022 [employer] Patient Education 2022 [employer] Follow Up Care 08/01/2022 09:51:36 With:[facility] Address: [address] [place] [address] Business (1) When: Unknown Comments:for procedure as scheduled [facility] 06-13-2023 Hospital Discharge instructions Patient Education 09/03/2022 09:40:05 Bladder Cancer Bladder Cancer Bladder cancer is a condition where abnormal tissue (a tumor) grows in the bladder. The bladder is the organ that holds urine. Two tubes (ureters) carry urine from the kidneys to the bladder. The bladder wall is made of layers of tissue. Cancer that spreads through these layers of the bladder wall becomes more difficult to treat. What increases the risk? The following factors may make you more likely to develop this condition: Smoking. Working where there are risks (occupational exposures), such as working with rubber, leather, clothing fabric, dyes, chemicals, or paint. Being 55 years of age or older. Being male. Having long-term bladder inflammation. Having a history of cancer. This includes: ?A family history of bladder cancer. ?Having had bladder cancer before. ?Having had certain treatments for cancer before, such as: ?Medicines to kill cancer cells (chemotherapy). ?Strong X-ray beams or high-energy capsules to kill cancer cells and shrink tumors (radiation therapy). Having been exposed to arsenic. This is a poisonous substance. What are the signs or symptoms? Early symptoms of this condition include: Blood in your urine. Pain when urinating. Infections of your urinary system (urinary tract infections or UTIs) that happen often. Having to urinate sooner or more often than normal. Late symptoms of this condition include: Not being able to urinate. Pain on one side of your lower back. Loss of appetite. Weight loss. Tiredness (fatigue). Swelling in your feet. Bone pain. How is this diagnosed? This condition is diagnosed based on: Your medical history. A physical exam. Lab tests, such as urine tests. Imaging tests. Your symptoms. You may also have other tests or procedures, such as: A cystoscopy. This involves putting a narrow tube into your urethra. The urethra is the organ that carries urine from your bladder to the outside of your body. This procedure is done to view the lining of your bladder for tumors. A biopsy. This involves removing a tissue sample to look at under a microscope to check for cancer. Blood tests or imaging tests may be needed. These show how far into the bladder wall cancer has grown, and if cancer has spread to any other parts of your body. Tests may include: CT scan. MRI. Bone scan. X-ray. How is this treated? Your health care provider may recommend one or more types of treatment based on the stage of your cancer. The most common treatments are: Surgery to remove the cancer. Types of surgeries include: ?Removing a tumor on the inside wall of the bladder (transurethral resection). ?Removing the bladder (cystectomy). Radiation therapy. This is often combined with chemotherapy. Chemotherapy. Immunotherapy. This uses medicines to help your body's disease-fighting system (immune system) destroy cancer cells. Follow these instructions at home: Take ejwm-vwv-wwkzwcu and prescription medicines only as told by your health care provider. If you were prescribed an antibiotic medicine, take it as told by your health care provider. Do notstop using the antibiotic even if you start to feel better. Eat a healthy diet. Some treatments might affect your appetite. Do not use any products that contain nicotine or tobacco. These products include cigarettes, chewing tobacco, and vaping devices, such as e-cigarettes. If you need help quitting, ask your health careprovider. Consider joining a support group. This may help you learn to deal with the stress of having bladdercancer. Tell your cancer care team if you develop side effects. Your team may be able to recommend ways to get relief. Keep all follow-up visits. This is important. Where to find more information [place] [employer] (ACS): cancer.org National Cancer Hol[place] (NCI): cancer.gov Contact a health care provider if: You have symptoms of a UTI. These include: ?Fever. ?Chills. ?Weakness. ?Muscle aches. ?Pain in your abdomen. ?Urge to urinate that is stronger and happens more often than normal. ?Burning in the bladder or urethra when you urinate. Get help right away if: There is blood in your urine. You cannot urinate. You have severe pain or other symptoms that do not go away. Summary Bladder cancer is a condition where tumors grow in the bladder. Diagnosis is based on your medical history, a physical exam, lab tests, imaging tests, and your symptoms. Your health care provider may recommend one or more types of treatment based on the stage of your cancer. Consider joining a support group. This may help you learn to deal with the stress of having bladdercancer. This information is not intended to replace advice given to you by your health care provider. Make sure you discuss any questions you have with your health care provider. Document Revised: 02/18/2022 Document Reviewed: 02/18/2022 [employer] Patient Education 2022 [employer]. [facility] 06-06-2023 Hospital Discharge instructions Patient Education 08/27/2022 09:40:31 Dysuria Dysuria Dysuria is pain or discomfort during urination. The pain or discomfort may be felt in the part of the body that drains urine from the bladder (urethra) or in the surrounding tissue of the genitals. The pain may also be felt in the groin area, lower abdomen, or lower back. You may have to urinate frequently or have the sudden feeling that you have to urinate (urgency). Dysuria can affect anyone, but it is more common in females. Dysuria can be caused by many different things, including: Urinary tract infection. Kidney stones or bladder stones. Certain STIs (sexually transmitted infections), such as chlamydia. Dehydration. Inflammation of the tissues of the vagina. Use of certain medicines. Use of certain soaps or scented products that cause irritation. Follow these instructions at home: Medicines Take gyvi-yng-whfljsx and prescription medicines only as told by your health care provider. If you were prescribed an antibiotic medicine, take it as told by your health care provider. Do notstop taking the antibiotic even if you start to feel better. Eating and drinking Drink enough fluid to keep your urine pale yellow. Avoid caffeinated beverages, tea, and alcohol. These beverages can irritate the bladder and make dysuria worse. In males, alcohol may irritate the prostate. General instructions Watch your condition for any changes. Urinate often. Avoid holding urine for long periods of time. If you are female, you should wipe from front to back after urinating or having a bowel movement. Use each piece of toilet paper only once. Empty your bladder after sex. Keep all follow-up visits. This is important. If you had any tests done to find the cause of dysuria, it is up to you to get your test results. Ask your health care provider, or the department that is doing the test, when your results will be ready. Contact a health care provider if: You have a fever. You develop pain in your back or sides. You have nausea or vomiting. You have blood in your urine. You are not urinating as often as you usually do. Get help right away if: Your pain is severe and not relieved with medicines. You cannot eat or drink without vomiting. You are confused. You have a rapid heartbeat while resting. You have shaking or chills. You feel extremely weak. Summary Dysuria is pain or discomfort while urinating. Many different conditions can lead to dysuria. If you have dysuria, you may have to urinate frequently or have the sudden feeling that you have tourinate (urgency). Watch your condition for any changes. Keep all follow-up visits. Make sure that you urinate often and drink enough fluid to keep your urine pale yellow. This information is not intended to replace advice given to you by your health care provider. Make sure you discuss any questions you have with your health care provider. Document Revised: 10/20/2020 Document Reviewed: 10/20/2020 Elsevier Patient Education 2022 [employer]. [facility] 05-05-2023 Hospital Discharge instructions Patient Education 07/26/2022 09:19:25 Bladder Cancer Bladder Cancer Bladder cancer is a condition where abnormal tissue (a tumor) grows in the bladder. The bladder is the organ that holds urine. Two tubes (ureters) carry urine from the kidneys to the bladder. The bladder wall is made of layers of tissue. Cancer that spreads through these layers of the bladder wall becomes more difficult to treat. What increases the risk? The following factors may make you more likely to develop this condition: Smoking. Working where there are risks (occupational exposures), such as working with rubber, leather, clothing fabric, dyes, chemicals, or paint. Being 55 years of age or older. Being male. Having long-term bladder inflammation. Having a history of cancer. This includes: ?A family history of bladder cancer. ?Having had bladder cancer before. ?Having had certain treatments for cancer before, such as: ?Medicines to kill cancer cells (chemotherapy). ?Strong X-ray beams or high-energy capsules to kill cancer cells and shrink tumors (radiation therapy). Having been exposed to arsenic. This is a poisonous substance. What are the signs or symptoms? Early symptoms of this condition include: Blood in your urine. Pain when urinating. Infections of your urinary system (urinary tract infections or UTIs) that happen often. Having to urinate sooner or more often than normal. Late symptoms of this condition include: Not being able to urinate. Pain on one side of your lower back. Loss of appetite. Weight loss. Tiredness (fatigue). Swelling in your feet. Bone pain. How is this diagnosed? This condition is diagnosed based on: Your medical history. A physical exam. Lab tests, such as urine tests. Imaging tests. Your symptoms. You may also have other tests or procedures, such as: A cystoscopy. This involves putting a narrow tube into your urethra. The urethra is the organ that carries urine from your bladder to the outside of your body. This procedure is done to view the lining of your bladder for tumors. A biopsy. This involves removing a tissue sample to look at under a microscope to check for cancer. Blood tests or imaging tests may be needed. These show how far into the bladder wall cancer has grown, and if cancer has spread to any other parts of your body. Tests may include: CT scan. MRI. Bone scan. X-ray. How is this treated? Your health care provider may recommend one or more types of treatment based on the stage of your cancer. The most common treatments are: Surgery to remove the cancer. Types of surgeries include: ?Removing a tumor on the inside wall of the bladder (transurethral resection). ?Removing the bladder (cystectomy). Radiation therapy. This is often combined with chemotherapy. Chemotherapy. Immunotherapy. This uses medicines to help your body's disease-fighting system (immune system) destroy cancer cells. Follow these instructions at home: Take ubfv-chx-zswnrbg and prescription medicines only as told by your health care provider. If you were prescribed an antibiotic medicine, take it as told by your health care provider. Do notstop using the antibiotic even if you start to feel better. Eat a healthy diet. Some treatments might affect your appetite. Do not use any products that contain nicotine or tobacco. These products include cigarettes, chewing tobacco, and vaping devices, such as e-cigarettes. If you need help quitting, ask your health careprovider. Consider joining a support group. This may help you learn to deal with the stress of having bladdercancer. Tell your cancer care team if you develop side effects. Your team may be able to recommend ways to get relief. Keep all follow-up visits. This is important. Where to find more information [place] [employer] (ACS): cancer.org National Cancer [place] (NCI): cancer.gov Contact a health care provider if: You have symptoms of a UTI. These include: ?Fever. ?Chills. ?Weakness. ?Muscle aches. ?Pain in your abdomen. ?Urge to urinate that is stronger and happens more often than normal. ?Burning in the bladder or urethra when you urinate. Get help right away if: There is blood in your urine. You cannot urinate. You have severe pain or other symptoms that do not go away. Summary Bladder cancer is a condition where tumors grow in the bladder. Diagnosis is based on your medical history, a physical exam, lab tests, imaging tests, and your symptoms. Your health care provider may recommend one or more types of treatment based on the stage of your cancer. Consider joining a support group. This may help you learn to deal with the stress of having bladdercancer. This information is not intended to replace advice given to you by your health care provider. Make sure you discuss any questions you have with your health care provider. Document Revised: 02/18/2022 Document Reviewed: 02/18/2022 [employer] Patient Education 2022 [employer]. Follow Up Care 07/16/2022 10:49:06 With:BARB RAMIREZ, Tonia Vasquez, URL Address: [address] [place] [phone] When: Unknown [facility] 04-26-2023 NotePROCEDURE: XR CHEST 2 V DATE: 07/17/2022 7:04 AM CDT COMPARISONS: None. CLINICAL INDICATION: 67 years Male Pre-surgery evaluation FINDINGS: The cardiomediastinal silhouette and pulmonary vasculature are within normal limits. There are multiple subcentimeter scattered nodules throughout all lung helton. A CT of the chest from 06/27/2022 shows the lower lung helton and shows that many of these are calcified. These likely represent granulomata. These could obscure other nodules. On that CT there was a 8 x 4 mm nodule of the left lower lung field which did not appear calcified. This cannot be identified with certainty on today's plain radiographs. Please see CT report. There is no evidence of pleural effusion or pneumothorax. IMPRESSION: Multiple scattered lung nodules. Most of these probably represent calcified granulomata. There is noted an 8 mm nodule in the lower left lung field on CT of 06/27/2022. While specific recommendations were not made on that report, it seems appropriate to do a follow-up CT of the chest without contrast to evaluate that nodule further and then make recommendations as to further workup and/or follow-up. Electronically authenticated by: NORMA SMALL Date: 2022-07-17 09:32[facility]04-25-2023 Evaluation + Plan noteExtracted from: Title:Urology Progress Note Author:Max DEVRIES MD Date:07/16/22 Impression and Plan Impression: #1. This gentleman's gross hematuria seems to be from multiple bladder tumors. These need to get resected. Plan: #1. We are getting him scheduled to go under anesthesia with paralysis for TURBT, left ureteroscopy, possible laser of bladder tumors and left stent placement. Future Appointments Appointment Date:07/26/2022 08:30:00 AM Scheduled Provider:Tonia DEVRIES MD Location:[facility] Appointment Type:URO Office Visit Appointment Date:01/10/2023 10:45:00 AM Scheduled Provider:Tonia DEVRIES MD Location:[facility] Appointment Type:URO Office Visit Diagnostic Tests Pending * [facility] ([facility]) 07/16/[address]25-2023 Hospital Discharge instructions Patient Education 07/16/2022 10:30:28 [facility] - Cystoscopy Discharge Instructions (CUSTOM) Cystoscopy Voiding after the procedure: there may be some pain, burning, urgency, frequency and blood tinged urine following the procedure. These symptoms usually resolve within 2-5 days. Drink the amount of fluid it takes to keep the urine pink to yellow or clear in color. Drinking enough water and fluids will help to ease any discomfort after your procedure. If you are having problems that seem out of the ordinary, please call. If unable to contact your physician and you feel it is an emergency, go to the nearest emergency room or call 911 Diet you may resume your normal diet. Activity you may resume your normal activities Call if you have a fever over 100 degrees. Follow Up Care 06/27/2022 11:11:04 With:Tonia DEVRIES Address: [facility] [address] [place] [address]- Business (1) When: Unknown Comments:Office will call to schedule follow up [facility]03-20-2023 Evaluation note* Encounter Date Diagnosis Assessment Notes Treatment Notes Treatment Clinical Notes May, Acute pain of right shoulder (ICD-10 - M25.511) May, Traumatic tear of right rotator cuff, unspecified tear extent, initial encounter (ICD-10 - S46.011A) Discussed possible reverse total shoulder at some point Radiographs were reviewed with the patient today, along with a physical exam was performed. We discussed that patient's previous rotator cuff repair that appears to have failed. We discussed his different treatment options which includes the use of cortisone injections, and exercising to keep muscle tone and living with the conditions. We performed a 2/1cc marcaine / kenalog cortisone injection into the right shoulder joint under sterile technique. Patient tolerated the injection well without adverse reaction. Patient can f/u in 3 months or PRN. May, Primary osteoarthritis, right shoulder (ICD-10 - M19.011) [facility] 01-06-2023 Evaluation note* Encounter Date Diagnosis Assessment Notes Treatment Notes Treatment Clinical Notes Mar, Status post total left knee replacement (ICD-10 - Z96.652) Darian presents today s/p left total knee arthroplasty. Physical exam is benign with a healthy appearing wound and range of motion 0-125. He continues to have some posterior leg pain which is now radiating from the buttocks all the way down through the calf. This was isolated to the hamstrings and we have followed this along working it up for possible tourniquet injury but overall the thigh has been benign. MRI of the thigh was benign. His physical exam of his knee is overall benign today other than this pain. He does have a positive straight leg raise today. His course and imaging have been reviewed at length with him today. We have reviewed his MRI lumbar spine today and I have recommended trial of an epidural or foraminal injection. I will get him set up with Dr. Lydia Wahl for a second opinion on this to see if he would benefit from lumbar epidural injection versus foraminal injections. He can follow-up with me if injections are performed Patient continues to complain of pain to the left leg. I suspect pain may be coming from the lumbar area and not the knee. MRI will be need to be obtained for further treatment. I suspect lumbar radiculopathy. I will refer to Dr. Lydia Wahl in pain management pending MRI results. Advised patient to continue physical therapy exercises and TKA precautions. He voices understanding and is agreeable to treatment plan. Mar, Lumbar radiculopathy (ICD-10 - M54.16) All imaging reviewed and discussed with patient. There is DJD of the spine present and buldging of the discs. Informed that it may be hard to pin point the exact origin of the patient's pain. I explained that there may be some nerve pinching or lumbar radiculopathy and that would be treated with an epidural injection. I will refer to Dr.T. Wahl in pain management for further treatment. Patient voiced understanding and is agreeable to treatment plan. Mar, Pain in right shoulder (ICD-10 - M25.511) Patient complains of right shoulder pain. He has had rotator cuff repair surgery on bilateral shoulders. I will refer to Dr. Cooper for evaluation and further treatment. [facility] 10-17-2022 Hospital Discharge instructions Patient Education 01/07/2022 12:59:11 Cancer Screening for Men Cancer Screening for Men A cancer screening is a test or exam that checks for cancer. Your health care provider will recommend specific cancer screenings based on your age, personal history, and family history of cancer. Work with your health care provider to create a cancer screening schedule that protects your health. Why is cancer screening done? Cancer screening is done to look for cancer in the very early stages, before it spreads and becomesharder to treat and before you would start to notice symptoms. Finding cancer early improves the chances of successful treatment. It may save your life. Who should be screened for cancer? All men should be screened for colorectal cancer and skin cancer. Your health care provider may recommend screenings for other types of cancer if: You had cancer before. You have a family member with cancer. You have abnormal genes that could increase the risk of cancer. You have risk factors for certain cancers, such as smoking. When you should be screened for cancer depends on: Your age. Your medical history and your family's medical history. Certain lifestyle factors, such as smoking. Environmental exposure, such as to asbestos. What are some common cancer screenings? Lung cancer Lung cancer screening is done with a CT scan that looks for abnormal cells in the lungs. Discuss lung cancer screening with your health care provider if you are 55 74 years old and if any of the following apply to you: You currently smoke. You used to smoke heavily. You have a smoking history of 1 pack a day for 30 years or 2 packs a day for 15 years. You have quit smoking within the past 15 years. If you smoke heavily or if you used to smoke, you may need to be screened every year. Prostate cancer Prostate cancer screening is done with blood tests and an exam in which a health care provider usesa gloved finger to check prostate size (digital rectal exam). You may need to be screened for prostate cancer if: You have risk factors of prostate cancer, such as being or having a close family member with prostate cancer. You have inherited gene changes or a genetic condition, including BRCA1 or BRCA2 gene mutations or Obrien syndrome. You have symptoms of prostate cancer, such as problems urinating or erectile dysfunction. Prostate cancer screening for men with average risk may start at age 50. Men with risk factors may need to be screened earlier at age 40 45. Once you have been screened for prostate cancer, future screening may be recommended based on the results of your blood tests. Colorectal cancer All adults should have screening for colorectal cancer starting at age 50 and continuing until age 75. Your health care provider may recommend screening at age 45. You will have tests every 1 10 years, depending on your results and the type of screening test. If you have a family history of colon or rectal cancer or other risk factors, you may need to start having screenings earlier. Talk with your health care provider about which screening test is right for you and how often you should be screened. Colorectal cancer screening looks for cancer or for growths called polyps that often form before cancer starts. Tests to look for cancer or polyps include: Colonoscopy or flexible sigmoidoscopy. For these procedures, a flexible tube with a small camera isinserted into the rectum. CT colonography. This test uses X-rays and a contrast dye to check the colon for polyps. If a polypis found, you may need to have a colonoscopy so the polyp can be located and removed. Tests to look for cancer in the stool (feces) include: Guaiac-based fecal occult blood test (FOBT). This test detects blood in stool. It can be done at home with a kit. Fecal immunochemical test (FIT). This test detects blood in stool. For this test, you will need to collect stool samples at home. Stool DNA test. This test looks for blood in stool and any changes in DNA that can lead to colon cancer. For this test, you will need to collect a stool sample at home and send it to a lab. Skin cancer Skin cancer screening is done by checking the skin for unusual moles or spots and any changes in existing moles. Your health care provider should check your skin for signs of skin cancer at every physical exam. You should check your skin every month and tell your health care provider right away if anything looks unusual. Men with a yexsjc-uotq-tqzjhx risk for skin cancer may want to see a senior medical billing specialist (sound engineering technician) for an annual body check. Where to find more information National Cancer Hol[place]: https://www.cancer.gov/about-cancer/screening Centers for Disease Control and Prevention: https://www.cdc.gov/cancer/dcpc/prevention/screening.htm [place] [employer]: https://www.cancer.org/latest-news/6-yhuumk-ltyicnnma-kmkfk-msn-ljx.html Contact a health care provider if: You have concerns about any signs or symptoms of cancer, such as: ?Moles that have an unusual shape or color. ?Changes in existing moles. ?A sore on your skin that does not heal. ?Blood in your urine or stool. ?Fatigue that does not go away. ?Frequent pain or cramping in your abdomen. ?Coughing or trouble breathing that does not go away. ?Coughing up blood. ?Losing weight without trying. ?Changes in urination habits. ?Painful urination or ejaculation. Summary Be aware of and watch for signs and symptoms of cancer, especially symptoms of lung cancer, prostate cancer, colorectal cancer, and skin cancer. Early detection of cancer with cancer screening may save your life. Talk with your health care provider about your specific cancer risks. Work together with your health care provider to create a cancer screening plan that is right for you. This information is not intended to replace advice given to you by your health care provider. Make sure you discuss any questions you have with your health care provider. Document Released: 12/05/2016 Document Revised: 11/27/2018 Document Reviewed: 12/05/2016 [employer] Patient Education [employer]. Follow Up Care 12/04/2020 12:10:49 With:BARB RAMIREZ, Tonia Vasquez, URL Address: [facility] [address] , [place] [address]- [phone] When:01/07/2023 Comments:PSA [facility] 09-12-2022 Evaluation note* Encounter Date Diagnosis Assessment Notes Treatment Notes Treatment Clinical Notes Nov, Status post total left knee replacement (ICD-10 - Z96.652) Darian presents today 5 months s/p left total knee arthroplasty. Physical exam is benign with a healthy appearing wound and range of motion has improved since his last visit 0-125. Seems to be having less tenderness in the hamstrings but is still bothersome with sitting, otherwise no pain in regards to the knee. His MRI has been reviewed and discussed with him today. I see no issues at this time. I would allow him to continue activities as tolerated and we will have to continue to monitor this. Anti-inflammatorie s as needed. Plan follow-up in 3 months just for recheck to see how his hamstrings are feeling. MRI and xrays reviewed today. Discussed with patient to continue with physical therapy exercises and stretching. Call with any questions or concerns Nov, Strain of left hamstring, initial encounter (ICD-10 - S76.312A) [facility] 08-11-2022 Evaluation note* Encounter Date Diagnosis Assessment Notes Treatment Notes Treatment Clinical Notes Oct, Status post total left knee replacement (ICD-10 - Z96.652) [facility] 07-08-2022 Evaluation note* Encounter Date Diagnosis Assessment Notes Treatment Notes Treatment Clinical Notes Sep, Status post total left knee replacement (ICD-10 - Z96.652) Darian presents today 12 weeks s/p left total knee arthroplasty. Physical exam is benign with a healthy appearing wound and range of motion has improved since his last visit 0-120. I am unable to reproduce this pain he is complaining of but I think it may be of hamstring origin. I am recommending physical therapy for stretching and strengthening of the hamstrings to see if this improves his pain. Continue Celebrex as an anti-inflammatory. Follow-up after 8 weeks of PT. Patient given prescription for physical therapy. Prescription for celebrex sent into patients pharmacy Sep, Strain of left hamstring, initial encounter (ICD-10 - S76.312A) [facility] 05-27-2022 Evaluation note* Encounter Date Diagnosis Assessment Notes Treatment Notes Treatment Clinical Notes July, Status post total left knee replacement (ICD-10 - Z96.652) Darian presents today 6 weeks s/p left total knee arthroplasty. His chills have improved. Physical exam is benign with a healthy appearing wound and range of motion has improved since his last visit 0-120. They are still taking pain medication but we did discuss the weaning process today. He is in therapy. They I have completed anticoagulation appropriately without any signs of deep vein thrombosis. His lab work was overall benign with some very mild elevation appropriate for a postop total joint. I will see them back at the 3-month anniversary from their surgery for reevaluation. No x-rays are needed at that time. Continue icing and PT for his hamstring ecchymosis. Patient is progressing well from surgery. We discussed the importance of continuing to work on range of motion and strength exercise. Continue working with physical therapy at this time. Labs reviewed with patient today. Call with any questions or concerns. Continue with use of Tylenol as needed for pain. [facility] Other 05-11-2022 Evaluation note* Encounter Date Diagnosis Assessment Notes Treatment Notes Treatment Clinical Notes July, Status post total left knee replacement (ICD-10 - Z96.652) Darian presents today 4 weeks s/p left total knee arthroplasty. They are doing well but did have some concerns over some chills. Physical exam is benign with a healthy appearing wound and range of motion has improved since his last visit 0-110. They are still taking pain medication but we did discuss the weaning process today. He is in therapy. They are anticoagulated appropriately without any signs of deep vein thrombosis. I discussed that I find no concerning findings on his physical exam but we will order some lab work including ESR and CRP for evaluation moving forward. I have no concern for an early infection at this time. I will see them back at the 6-week anniversary from their surgery for reevaluation. No x-rays are needed at that time. Continue icing for his hamstring ecchymosis. [facility] Other 04-27-2022 Evaluation note* Encounter Date Diagnosis Assessment Notes Treatment Notes Treatment Clinical Notes Jun, Status post total left knee replacement (ICD-10 - Z96.652) Darian presents today 2 weeks s/p left total knee arthroplasty. They are doing well. Physical exam is benign with a healthy appearing wound and range of motion of 5-95. They are still taking pain medication but we did discuss the weaning process today. They are anticoagulated appropriately without any signs of deep vein thrombosis. We have given an order for outpatient therapy today. I will see them back at the 6-week anniversary from their surgery for reevaluation. No x-rays are needed at that time. Continue icing for his hamstring ecchymosis. Patient appears to be progressing appropriately from surgery. Formal therapy order provided. Instructed on motion and strengthening exercises. Call with questions/concerns . [facility] Other 04-11-2022 Evaluation note* Encounter Date Diagnosis Assessment Notes Treatment Notes Treatment Clinical Notes Jun, Arthritis of left knee (ICD-10 - M17.12) Darian returns today with left knee DJD. He does have history of right partial knee replacement. Today we have discussed degenerative joint disease of the knee and its treatment. Imaging was discussed and explained to the patient. We discussed recommended conservative therapies including physical therapy, anti-inflammatory medications, and weight loss strategies. We also discussed other treatment options including cortisone injections, Visco supplementation injections which are options for treatment. His last injection is still providing some relief but his pain is slowly returning. He feels he is ready to move forward with total knee arthroplasty. At this juncture we have discussed the findings and diagnosis. Surgical intervention is recommended. Surgical versus non-operative management have been discussed in detail and non-operative management was given as an option and exhausted. The risks of surgical intervention in the form of total joint arthroplasty were given. Pre-operative optimization will be done prior to surgical procedure to limit ramona-operative risks. I have discussed the planned procedure, how and who performs the procedure, and the personnel involved. Cardiovascular, pulmonary, and other life-threatening episodes can occur during surgery although there is a low risk of these happening. Surgical risks including bleeding, neurovascular injury, wound closure problems and infection were discussed. Ramona-operative risks including infection, bleeding, wound healing problems, and need for further surgery were discussed. It was discussed that there is a possibility of blood transfusion with any surgical procedure and the risks involved in receiving a blood transfusion. The surgical procedure including anesthesia, staff, and hospitalization have been discussed in detail. Possibility of, and need for, future bracing or DME use, physical or occupational therapy, mental therapy, rehabilitation, pain management and need for secondary procedures was discussed. There is possibility of component malfunction or wear and tear requiring future procedures. I have warned against smoking and the use of tobacco products due to the risks associated with them, in particular, poor healing. Obtaining or maintaining a healthy BMI was discussed. I have advised against the snf use of narcotic pain medication. I have advised to follow all post-operative instructions in order to obtain the best outcome. Informed consent has been verbally affirmed and signed as indicated. Today we have discussed the hospitalization process along with the surgical process. I as the surgeon as well as the personnel involved. He is agreeable to proceeding we will move forward with our surgery. Plan for same-day discharge: Yes Doxycycline: Yes Follow-up: 2 weeks postoperatively Patient would like to proceed with left total knee arthroplasty Jun, Acute pain of left knee (ICD-10 - M25.562) Jun, Pre-op exam (ICD-10 - Z01.818) [facility] Other 01-31-2022 Evaluation note* Encounter Date Diagnosis Assessment Notes Treatment Notes Treatment Clinical Notes Mar, Arthritis of left knee (ICD-10 - M17.12) Darian returns today with left knee DJD. Today we have discussed degenerative joint disease of the knee and its treatment. Imaging was discussed and explained to the patient. We discussed recommended conservative therapies including physical therapy, anti-inflammatory medications, and weight loss strategies. We also discussed other treatment options including cortisone injections, Visco supplementation injections which are options for treatment. His last injection is still providing some relief but his pain is slowly returning. He feels he is ready to move forward with total knee arthroplasty. We will plan to start the preoperative process and get him on the schedule today. Follow-up for preoperative H&P. Patient would like to proceed with left total knee arthroplasty Mar, Tear of medial meniscus of left knee, current, unspecified tear type, subsequent encounter (ICD-10 - S83.242D) Darian returns with left knee medial meniscus tear, medial chondromalacia and MCL inflammation. At this juncture we have discussed the findings and diagnosis as well as personally reviewed appropriate imaging and performed interpretation of related testing and examination with the patient in office today. We'll plan for repeat cortisone injection. Continue brace Mar, Sprain of medial collateral ligament of left knee, subsequent encounter (ICD-10 - S83.412D) Stable and nonpainful on exam today. Do not believe this needs to be treated with hinged knee brace. We will continue to monitor. Mar, Acute pain of left knee (ICD-10 - M25.562) [facility] Other 12-20-2021 Evaluation note* Encounter Date Diagnosis Assessment Notes Treatment Notes Treatment Clinical Notes Feb, Arthritis of left knee (ICD-10 - M17.12) Darian returns today with left knee DJD. Today we have discussed degenerative joint disease of the knee and its treatment. Imaging was discussed and explained to the patient. We discussed recommended conservative therapies including physical therapy, anti-inflammatory medications, and weight loss strategies. We also discussed other treatment options including cortisone injections, Visco supplementation injections which are options for treatment. He wants to retry cortisone again today. Under sterile technique patient's left knee was injected with 4 cc Marcaine 1 cc of Kenalog via the inferolateral portal. He tolerated this well. Did discuss [id number] anti-inflammatory medications and handout has been given. We have sent Shahida to the pharmacy. I will plan to see him back on as-needed basis. We performed a 4/1cc marcaine / kenalog cortisone injection into the left knee joint under sterile technique. Patient tolerated the injection well without adverse reaction. Feb, Other tear of medial meniscus of left knee as current injury, initial encounter (ICD-10 - S83.242A) Darian returns with left knee medial meniscus tear, medial chondromalacia and MCL inflammation. At this juncture we have discussed the findings and diagnosis as well as personally reviewed appropriate imaging and performed interpretation of related testing and examination with the patient in office today. We'll plan for repeat cortisone injection. Continue brace Feb, Sprain of medial collateral ligament of left knee, initial encounter (ICD-10 - S83.412A) Stable and nonpainful on exam today. Do not believe this needs to be treated with hinged knee brace. We will continue to monitor. Feb, Acute pain of left knee (ICD-10 - M25.562) [facility] Other 11-22-2021 Evaluation note* Encounter Date Diagnosis Assessment Notes Treatment Notes Treatment Clinical Notes Jan, Arthritis of left knee (ICD-10 - M17.12) Darian returns today with left knee DJD. Today we have discussed degenerative joint disease of the knee and its treatment. Imaging was discussed and explained to the patient. We discussed recommended conservative therapies including physical therapy, anti-inflammatory medications, and weight loss strategies. We also discussed other treatment options including cortisone injections, Visco supplementation injections which are options for treatment. His cortisone injection gave him between 2 and 3 weeks of full relief. He wants to do this again prior to a trip he is taking in February. Advised can return a few days prior to his trip and we will repeat cortisone injection at time. We will inject Jan, Other tear of medial meniscus of left knee as current injury, initial encounter (ICD-10 - S83.242A) Darian returns with left knee medial meniscus tear, medial chondromalacia and MCL inflammation. At this juncture we have discussed the findings and diagnosis as well as personally reviewed appropriate imaging and performed interpretation of related testing and examination with the patient in office today. We'll plan for repeat cortisone injection. Continue brace Jan, Sprain of medial collateral ligament of left knee, initial encounter (ICD-10 - S83.412A) Stable and nonpainful on exam today. Do not believe this needs to be treated with hinged knee brace. We will continue to monitor. Jan, Acute pain of left knee (ICD-10 - M25.562) [facility] Other 10-20-2021 Evaluation note* Encounter Date Diagnosis Assessment Notes Treatment Notes Treatment Clinical Notes Dec, Arthritis of left knee (ICD-10 - M17.12) Today we have discussed degenerative joint disease of the knee and its treatment. Imaging was discussed and explained to the patient. We discussed recommended conservative therapies including physical therapy, anti-inflammatory medications, and weight loss strategies. We also discussed other treatment options including cortisone injections, Visco supplementation injections which are options for treatment. I have laid out the course of knee DJD including the end-stage treatment of total joint arthroplasty. The patient recognizes and understands our options and goals and we will move forward with our treatment. Today we have initiated cortisone injection with 4 cc of Marcaine 1 cc of Kenalog using sterile technique via the inferolateral portal this was given and patient tolerated well. I will see them back as needed. We performed a 4/1cc marcaine / kenalog cortisone injection into the knee joint under sterile technique. Patient tolerated the injection well without adverse reaction. If problems persist, we may need to consider surgical treatment. Dec, Other tear of medial meniscus of left knee as current injury, initial encounter (ICD-10 - S83.242A) Darian presents with left knee medial meniscus tear, medial chondromalacia and MCL inflammation. At this juncture we have discussed the findings and diagnosis as well as personally reviewed appropriate imaging and performed interpretation of related testing and examination with the patient in office today. Prior medical notes from Juliann Mane NP and history have been reviewed. At this time I have offered conservative versus operative care. He would like to try cortisone injection today which we have performed as stated above. We will plan for follow-up as needed. The patient has been involved in our cooperative treatment plan and agrees to move forward with treatment at this time. Dec, Sprain of medial collateral ligament of left knee, initial encounter (ICD-10 - S83.412A) Stable and nonpainful on exam today. Do not believe this needs to be treated with hinged knee brace. We will continue to monitor. Dec, Acute pain of left knee (ICD-10 - M25.562) Dec, Other See orders for this visit as documented in the electronic medical record. [facility] Other 04-07-2011 History general Narrative - Reported* Type Description Date Medical History knee pain Medical History Arthritis Medical History sleeping disorder Surgical History right total knee arthroplasty Surgical History bilateral shoulders [facility] Other 04-07-2011 History general Narrative - Reported* Type Description Date Medical History knee pain Medical History Arthritis Medical History sleeping disorder Medical History acid reflux Surgical History right partial knee arthroplasty 06/28/10 Surgical History bilateral shoulders [facility] Other 04-07-2011 History general Narrative - Reported* Type Description Date Medical History knee pain Medical History Arthritis Medical History sleeping disorder Medical History acid reflux Surgical History right partial knee arthroplasty 06/28/10 Surgical History bilateral shoulders Surgical History LT TKR 07/05/2021 [facility] Other 04-07-2011 History general Narrative - Reported* Type Description Date Medical History knee pain Medical History Arthritis Medical History sleeping disorder Medical History acid reflux Surgical History right partial knee arthroplasty 06/28/10 Surgical History bilateral shoulders Right Cuff Repair Surgical History LT TKR 07/05/2021 [facility] Other 04-07-2011 History general Narrative - Reported* Type Description Date Medical History knee pain Medical History Arthritis Medical History sleeping disorder Medical History acid reflux Surgical History right partial knee arthroplasty 06/28/10 Surgical History bilateral shoulders Right Cuff Repair Surgical History LT TKR 07/05/2021 Surgical History bladder cancer 2022 [facility] Other evaluation + Plan note Future Appointments Appointment Date:01/10/2023 10:45:00 AM Scheduled Provider:Tonia DEVRIES MD Location:[facility] Appointment Type:URO Office Visit Diagnostic Tests Pending * PSA Total 01/07/22 [facility] evaluation + Plan note Future Appointments Appointment Date:01/10/2023 10:45:00 AM Scheduled Provider:Tonia DEVRIES MD Location:[facility] Appointment Type:URO Office Visit [facility] evaluation + Plan note Future Appointments Appointment Date:09/03/2022 08:45:00 AM Scheduled Provider:YAHAIRA LONG PA-C Location:[facility] Appointment Type:URO Office Visit Appointment Date:09/10/2022 08:45:00 AM Scheduled Provider:YAHAIRA LONG PA-C Location:[facility] Appointment Type:URO Office Visit Appointment Date:09/17/2022 08:45:00 AM Scheduled Provider:YAHAIRA LONG PA-C [facility] Appointment Type:URO Office Visit Appointment Date:10/01/2022 08:45:00 AM Scheduled Provider:YAHAIRA LONG PA-C Location[facility] Appointment Type:URO Office Visit Appointment Date:10/08/2022 08:45:00 AM Scheduled Provider:YAHAIRA LONG PA-C Location:[facility] Appointment Type:URO Office Visit Appointment Date:01/10/2023 10:45:00 AM Scheduled Provider:Tonia DEVRIES MD Location[facility] Appointment Type:URO Office Visit [facility] evaluation + Plan note Future Appointments Appointment Date:09/03/2022 08:45:00 AM Scheduled Provider:YAHAIRA LONG PA-C Location[facility] Appointment Type:URO Office Visit Appointment Date:09/10/2022 08:45:00 AM Scheduled Provider:YAHAIRA LONG PA-C [facility] Appointment Type:URO Office Visit Appointment Date:09/17/2022 08:45:00 AM Scheduled Provider:YAHAIRA LONG PA-C Location:[facility] Appointment Type:URO Office Visit Appointment Date:10/01/2022 08:45:00 AM Scheduled Provider:YAHAIRA LONG PA-C Location:[facility] Appointment Type:URO Office Visit Appointment Date:10/08/2022 08:45:00 AM Scheduled Provider:YAHAIRA LONG PA-C Location:[facility] Appointment Type:URO Office Visit Appointment Date:01/10/2023 10:45:00 AM Scheduled Provider:Tonia DEVRIES MD Location:[facility] Appointment Type:URO Office Visit Diagnostic Tests Pending * [facility] Appointment Date:09/10/2022 08:45:00 AM Scheduled Provider:YAHAIRA LONG PA-C [facility] Appointment Type:URO Office Visit Appointment Date:09/17/2022 08:45:00 AM Scheduled Provider:YAHAIRA LONG PA-C Location[facility] Appointment Type:URO Office Visit Appointment Date:10/01/2022 08:45:00 AM Scheduled Provider:YAHAIRA LONG PA-C Location:[facility] Appointment Type:URO Office Visit Appointment Date:10/08/2022 08:45:00 AM Scheduled Provider:YAHAIRA LONG PA-C Location[facility] Appointment Type:URO Office Visit Appointment Date:01/10/2023 10:45:00 AM Scheduled Provider:Tonia DEVRIES MD Location[facility] Appointment Type:URO Office Visit [facility] evaluation + Plan note Future Appointments Appointment Date:09/17/2022 08:45:00 AM Scheduled Provider:YAHAIRA LONG PA-C Location:[facility] Appointment Type:URO Office Visit Appointment Date:10/01/2022 08:45:00 AM Scheduled Provider:YAHAIRA LONG PA-C Location[facility] Appointment Type:URO Office Visit Appointment Date:10/08/2022 08:45:00 AM Scheduled Provider:YAHAIRA LONG PA-C Location[facility] Appointment Type:URO Office Visit Appointment Date:01/10/2023 10:45:00 AM Scheduled Provider:Tonia DEVRIES MD Location:[facility] Appointment Type:URO Office Visit [facility] evaluation + Plan note Future Appointments Appointment Date:10/08/2022 08:45:00 AM Scheduled Provider:YAHAIRA LONG PA-C Location:[facility] Appointment Type:URO Office Visit Appointment Date:10/14/2022 09:30:00 AM Scheduled Provider:Tonia DEVRIES MD [facility] Appointment Type:URO Office Visit Appointment Date:10/22/2022 08:45:00 AM Scheduled Provider:YAHAIRA LONG PA-C [facility] Appointment Type:URO Office Visit Appointment Date:01/10/2023 10:45:00 AM Scheduled Provider:Tonia DEVRIES MD Location:[facility] Appointment Type:URO Office Visit [facility] evaluation + Plan note Future Appointments Appointment Date:10/14/2022 09:30:00 AM Scheduled Provider:Tonia DEVRIES MD Location[facility] Appointment Type:URO Office Visit Appointment Date:10/22/2022 08:45:00 AM Scheduled Provider:YAHAIRA LONG PA-C Location[facility] Appointment Type:URO Office Visit Appointment Date:01/10/2023 10:45:00 AM Scheduled Provider:Tonia DEVRIES MD [facility] Appointment Type:URO Office Visit [facility] evaluation + Plan note Future Appointments Appointment Date:12/10/2022 01:30:00 PM Scheduled Provider:Tonia DEVRIES MD [facility] Appointment Type:URO Procedure 15 min Diagnostic Tests Pending * [facility] Appointment Date:12/10/2022 01:30:00 PM Scheduled Provider:Tonia DEVRIES MD [facility] Appointment Type:URO Procedure 15 min [facility] evaluation + Plan note Future Appointments Appointment Date:03/03/2023 09:00:00 AM Scheduled Provider:Tonia DEVRIES MD Location:[facility] Appointment Type:URO Office Visit [facility] evaluation + Plan note Future Appointments Appointment Date:05/13/2023 09:00:00 AM Scheduled Provider:YAHAIRA LONG PA-C Location:[facility] Appointment Type:URO Office Visit [facility] evaluation + Plan note Future Appointments Appointment Date:06/24/2023 01:15:00 PM Scheduled Provider:Tonia DEVRIES MD Location:[facility] Appointment Type:URO Procedure 15 min [facility] evaluation noteNo InformationNortConemaugh [facility] [employer] Other Evaluation noteNo assessment information available [facility] Work Phone: Hospital course Narrative No data available for this section [facility] Hospital Discharge instructions No data available for this section [facility] No data available for this section [facility] Summary Purpose Family History No Family History Records Found Relationship Condition Age at Onset Recorded Date/T george Not Specified Malignant neoplasm of throat Unknown father Malignant neoplasm of prostate Unknown Parkinson's disease Unknown Hypertension Unknown Cardiomegaly Unknown Advance Directives No Advanced Directives Records Found Advance Directive Response Recorded Date/ Time Advance Directives No November 13, 2020 3:54pm Advance Directive Response Recorded Date/ Time Advance Directives No November 13, 2020 2:54pm Chief Complaint and Reason for Visit Chief Complaint Z96.652 Z96.652 Chief Complaint Radiculopathy Reason for Referral Reason 06/10/22 @ 10:30 c onsult for right shoulder pain Diagnosis 1 Pain in right should er (M25.511) Referral Organization [facility] Referring Provider First Name Nahid Referring Provider Last Name Jesika Referring Provider Specialty Orthopedic Surgery Referred Organization [facility] Referred Provider Mickie Cooper Referred Address [address] [place],[address] Referred Provider Specialty Orthopedic S urgery Referral Priority Routine Referral Appointment Date 2022-06-10 General Notes Yahaira Moran 10:31:33 AM > received today, sending p2p at this time Yahaira Moran 04/08/2022 10:06:50 AM >patient not scheduled yet Yahaira Moran 04/16/2022 10:37:50 AM >patient not scheduled yet Yahaira Moran 04/24/2022 10:41:23 AM >patient not scheduled yet Yahaira Moran 04/30/2022 10:31:19 AM >Pt has now been scheduled 06/10/22 at 10:30 Additional Source Comments (unrecognized sect ion and content) No Status Records FoundNo Status Records FoundNo Status Records FoundNo Status Records FoundNo Status Records Found INFORMATION SOURCE (unrecogn ized section and content) DATE CREATED AUTHOR 08/24/2018 Elsa Lewis [facility] DATE CREATED AUTHOR AUTHOR'S ORGANIZ ATION 06/25/2022 [facility] DATE CREATED AUTHOR AUTHOR'S ORGANIZ ATION 07/31/2022 [facility] DATE CREATED AUTHOR AUTHOR'S ORGANIZ ATION 08/11/[address] [facility] DATE CREATED AUTHOR AUTHOR'S ORGANIZ ATION 08/21/2023 [facility] EPIC REASON FOR VISIT (unrecogniz ed section and content) Left Knee MRI ResultsNo Info rmationLeft Knee PainRecheck Left KneeRecheck Left KneequestionsNo InformationH & P LEFT TOTAL KNEE ARTHROPLASTY - 07/05/2021medicationLeft Knee WarmthRecheck Left TKAWHAT TO DO4 WEEK RECHECKRecheck Left TKARecheck Left TKAmuscle relaxerMRI ResultsMRI RESULTSRight Shoulder PainHEADACHE, COUGH, CONGESTION Care Teams (unrecognized sec tion and content) Team Status: Inactive Member Role Status Dates Catracho Willis MD Primary Care Provider Active Nahid Canchola DO Attending Provider Active Team Status: Active Member Role Status Dates Catracho Willis MD Primary Care Provider Active Team Status: Inactive Member Role Status Dates Catracho Willis MD Primary Care Provider Active Mickie Cooper MD Attending Provider Active Goals (unrecognized section and content) Goals may be documented in a n alternate section FOR RECORDS PERTAINING TO PATIENTS WHO ARE OR HAVE BEEN ENROLLED IN A CHEMICAL DEPENDENCY/SUBSTANCEABUSE PROGRAM, SOME INFORMATION MAY BE OMITTED. This clinical summary was aggregated from multiple sources. Caution should be exercised in using it in the provision of clinical care. This summary normalizes information from multiple sources, and as a consequence, information in this document may materially change the coding, format and clinical context of patient data. In addition, data may be omitted in some cases. CLINICAL DECISIONS SHOULD BE BASED ON THE PRIMARY CLINICAL RECORDS. [facility] [employer] [facility]. provides no warranty or guarantee of the accuracy or completeness of information in this document.
== END 2023-08-25 14:27 | disposition home or self-care (01) ==
LOC: PST 14:26
PROVIDERS: PCP Family Medicine; Visit Provider Surgery
DX: Z01.818 Encounter for other preprocedural examination (principal)

== ENCOUNTER 2023-09-02 06:35 | Day surgery (SDC) | payer MEDICARE, SELFPAY ==
--- OUTSIDE RECORDS SUMMARY | 2023-09-02 06:39 | XMS_ITS | CCD ---
Author Organization [facility] CliniSyfl Care Team Providers Care Motion Picture Camera Lens Technician Name Role Phone CATRACHO WILLIS Primary Care UnavailJAMIE Collier Attending Unavailable Jesika, Nahid Unavailable Les Paul Unavailable MD Catracho Willis Primary Care Provider DO Nahid Canchola Attending Provider [phone] CATRACHO WILLIS Primary Care Physician [phone] MD Catracho Willis Primary Care Provider DO Nahid Cancohla A Attending Provider MD Catracho Wilils Primary Care Provider DO Nahid Canchola A Attending Provider [phone] MD Mickie Cooper Attending Provider Mickie Cooper [...] ETHAN, YAHAIRA Consulting Unavailable DEVRIES ., DR RANDALL Consulting Unavailable [...] Daily, # 90 tab(s), Refills(s) 3, Pharmacy: [facility], 182, cm, 09/10/22 8:56:00 EDT, Height/Length Dosing, 85, kg, 09/10/22 8:56:00 EDT, Weight Dosing Start Date: 09/10/22 Status: Ordered Start: 04-05-2022 take 1 tablet by brian th once daily Myrbetriq 50 mg oral tablet, extended release 50 mg = 1 tab(s), Oral, Daily, # 30 tab(s), Refills(s) 11, Pharmacy: [facility], 182, cm, 01/07/22 12:37:00 EDT, [...] day(s), # 30 tab(s), Refills(s) 11, Pharmacy: [facility], 182, cm, 05/13/23 9:11:00 EST, [...] for 10 day(s), 20 tab(s), Refill(s) 0, [facility], 182, cm, 03/03/23 9:14:00 EST, Height/Length Dosing, 84, kg, 03/03/23 9:14:00 EST, Weight Dosing Start Date: 03/10/23 Stop Date: 03/20/23 Status: Ordered Start: 08-27-2022 End: 09-03-2022 take 1 tablet by mouth twice daily Bactrim D.S. 800 mg-160 mg Tab 1 tab(s), Oral, BID for 7 day(s), 14 tab(s), Refill(s) 0, [facility], 182, cm, 08/27/22 9:05:00 EDT, [...] procedure, # 6 tab(s), Refills(s) 0, Pharmacy: [facility], 182, cm, 10/22/22 9:11:00 EDT, Height/Length Dosing, 84, kg, 10/22/22 9:11:00 EDT,... Start Date: 11/05/22 Status: Ordered Start: 07-26-2022 Cipro 500 mg T ab 500 mg = 1 tab(s), Oral, As Directed, Pt to take 1 tab the day before procedure and the 2nd tab the day of procedure once completed., # 2 tab(s), Refills(s) 0, Pharmacy: [facility], 182, cm, 07/26/22 9:01:00 EDT, Height/Length Dosing, 82, k... Start Date: 07/26/22 Status: Ordered Start: 06-25-2022 take 1 tablet by brian th once daily Cipro 500 mg Tab 500 mg = 1 tab(s), Oral, Daily, Take 1 tablet the day before the procedure and 1 tablet after the procedure, # 2 tab(s), Refills(s) 0, Pharmacy: [facility], 182, cm, 06/05/22 11:46:00 EDT, [...] relations., # 30 tab(s), Refills(s) 3, Pharmacy: [facility], 182, cm, 01/17/23 10:30:00 EDT, [...] period., # 30 tab(s), Refills(s) 3, Pharmacy: [facility], 182, cm, 12/04/20 11:58:0... Start [...] & UC Diagnosis Info Invalid Interpretation Code [facility] Comment on above: Result Comment: A:Ur ine,Bladder [...] correlated with cytology and cystoscopy results.* CPT 93903, 65470 Microscopic Notes - Microscopic Notes - Abnormal cells 9p21 deletions: Abnormal cells aneploid events: Total cells analyzed: 93 Hematuria: Gross Description Site ID:A color Yellow fixative Alcohol Received 100 mls of clear yellow fluid with the patient's name and, Bladder Wash on the vial. Electronically signed by : on: 06/30/2023 12:01:35 Performed By: #### 1 [id number] #### [facility] [address] [place] [address] Consent for Procedure/Surger yon 06-25-2023 Consent for Procedure/Surgery [id number]# 1.00TIFF Normal [facility] Ambulatory Visit Summaryon 0 06-24-2023 Ambulatory Visit [...] [facility] [address] [place] [phone] Medications What How Much When Instructions Unchanged [...] canc (more content not included)... Normal [facility] Patient Educationon 06-24-19 Patient Education Oncology Cancer [...] if anything looks unusual. Men with a haxsrn-ztcq-yjoini risk for skin cancer may want to see a home mortgage disclosure act specialist (diesel locomotive firer/fireman) for an annual body check. What are the benefits of screening? Cancer screening is done to look for cancer in the very early stages, before it spreads and becomes harder to treat and before you would start to notice symptoms. Finding cancer early improves the chances of successful treatment. It ma (more content not included)... Normal [facility] UroVysion Fish and Urine Cyt o ([facility])on 06-24-2023 [facility] Method of Extraction Bladder Wash Normal [facility] Comment on above: Performed By: #### 1 [id number] #### [facility] [address] [place] [address] [facility] Number of Jars 1 Invalid Interpretation Code [facility] Comment on above: Performed By: #### 1 [id number] #### [facility] [address] [place] [address] [facility] Specimen Bladder Wash Normal [facility] Comment on above: Performed By: #### 1 [id number] #### [facility] [address] [place] [address] [facility] Type of Service Technical Only Normal [facility] Comment on above: Performed By: #### 1 [id number] #### [facility] [address] [place] [address] Urology Office/Clinic Noteon 06-24-2023 Urology Office/Clinic Note [...] URL [facility] [address], [place] [phone] Additional Instructions: 3 mos for cysto Patient [...] TURBT - Transurethra (more content not included)... [facility] Comment on above: Result Comment: Elec [...] Tonia DEVRIES MD Where: [facility] Patient Educationon 05-13-19 Patient Education Oncology Bladder [...] Follow these instructions at home: ? Take gler-lvj-ilpguna and prescription medicines only as told by [...] important. Where to find more information ? [place] Cancer Society (ACS): cancer.org ? [place] Cancer [place] (NCI): cancer.gov Contact a health care provider [...] September 2023 for 3 month cysto/fish/cytol Normal [facility] Urology Office/Clinic Noteon 05-13-2023 Urology Office/Clinic Note [...] E&M of Est. Patient Moderate 30-39 Min 74811 2. Urinary urgency (R39.15: Urgency of urination) [...] E&M of Est. Patient Moderate 30-39 Min 65546 Urnls Dip Stick Auto w/o Microscopy POC 26938 Follow-up With When Contact Information [facility] [address] [place] [address] [employer] (1) Additional Instructions: for procedure as scheduled [...] History Toba (more content not included)... Normal [facility] Comment on above: Result Comment: [...] YAHAIRA LONG PA-C Where: [facility] Patient Educationon 05-05-19 Patient Education Oncology Chemotherapy [...] not available, use an alcohol based hand two way radio installer that contains at least 60% alcohol. Have [...] long y (more content not included)... Normal [facility] Urology Office/Clinic Noteon 05-05-2023 Urology Office/Clinic Note [...] [facility] [address], [place] [phone] Additional Instructions: BCG #3/3 on 05/13/23 Patient [...] tumor (07/18/2022), (more content not included)... Normal [facility] Comment on above: Result Comment: [...] Tonia DEVRIES MD Where: [facility] Normal [address] [place] [address] [place] [address]- \.br\ You Need to Schedule the Following Appointments\.b r\ Follow Up with Tonia DEVRIES MD, URL When: \.br\ Comments:\.br\ f/u scheduled 05/05/23 for BCG #2/3\.br\ Where:\.br\ [facility] [address]br\ [place] [address].br\ [phone]\.br\ Medications\.br \ What How Much When Instructions\.b r\ Unchanged mirabegron (Myrbetriq 50 mg oral tablet, extended release) 1 Tablets By Mouth Every day\.br\ Unchanged tadalafil (tadalafil 10 mg Tab) 1 Tablets By Mouth Every day as needed for for erectile dysfunction Take 1-2 pills by mouth, 1 hour prior to sexual relations. \.br\ Medications and Immunizations Administered\.b r\ Given\.br\ Mission BCG Live (for intravesical use), 50 mg, [...] not available, use an alcohol based hand two way radio installer that contains at least 60% alcohol. Have [...] flush.\.br\ ? \.br\ Wash your hands lindy [facility] Patient Educationon 04-28-19 Patient Education Oncology Chemotherapy [...] not available, use an alcohol based hand two way radio installer that contains at least 60% alcohol. Have [...] long y (more content not included)... Normal [facility] Urology Office/Clinic Noteon 04-28-2023 Urology Office/Clinic Note [...] Follow-up With When Contact Information BARB RAMIREZ, Tonai Vasquez, URL [facility] [address], [place] [phone] Additional Instructions: f/u scheduled 05/05/23 for BCG [...] Cystoscopy ( (more content not included)... Normal [facility] Comment on above: Result Comment: [...] treatments. Where: [facility] [address] [place] [address] Medications What How Much When Instructions Unchanged [...] bladder (cystect (more content not included)... Normal [facility] Pathology Noteon 03-31-2023 Pathology Note [id number] #1.00TIFF Normal [facility] COVID + FLU Quick Testingon 03-28-2023 SARS-CoV-2 (COVID-19) RNA VIC+probe Ql (Unsp spec) Positive [facility] ([facility]) Other COVID + FLU Quick Testing Negative [facility]) Other Lab Reportson 03-18-2023 Lab Reports [id number] #1.00TIFF Normal [facility] Pathology Noteon 03-18-2023 Pathology Note [id number] #1.00TIFF [facility] C Urineon 03-12-2023 Bacteria identified Cx [...] Locations R1: This test was performed at: [facility], [address] [place] [address], [facility]- , , [facility] Comment on above: Performed By: #### 2 [id number] #### [facility] [address] [place] [address] Coding Queryon 03-10-2023 Coding Query - From: Cortney Taylor M.A. To: [facility] - Pending Results; Sent: 03/10/2023 12:12:51 EST Subject: C&S Due Date/Time: 03/12/2023 12:12:00 EST Caller Name: DARIAN DUENAS; Caller Number: Carmen , C&S sent to [facility] duplicate [facility] Pathology Noteon 03-04-2023 Pathology Note [id number] #1.00TIFF [facility] Patient Educationon 03-03-20 23 Patient Education [...] Follow these instructions at home: ? Take gyts-kfc-mdbpjgw and prescription medicines only as told by [...] important. Where to find more information ? [place] Cancer Society (ACS): cancer.org ? [place] Cancer [place] (NCI): cancer.gov Contact a health care provider [...] wi (more content not included)... Normal [place] Urology Office/Clinic Noteon 03-03-2023 Urology Office/Clinic Note [...] [facility] [address], [place] [address]- Additional Instructions: After BCG treatments. Patient Education [...] extended releas (more content not included)... Normal [facility] Comment on above: Result Comment: Elec tronically Signed By: BARB RAMIREZ, Tonia Vasquez\.br\Date and Time Signed: 03/03/23 10:12 EST\.br\Electronically Co-Signed By: Adrienne Mojica.br\Date and Time Co-Signed: 03/03/23 10:10 EST Operative Reporton Operative Report [id number] #1.00TIFF [facility] Lab Reportson 02-17-2023 Lab Reports [id number] #1.00TIFF [facility] Lab Reports [id number]# 1.00TIFF [facility] Insurance Correspondenceon 1 03-31-2022 Insurance Correspondence [id number] #1.00TIFF [facility] Consent for Procedure/Surger yon 01-21-2023 Consent for Procedure/Surgery [id number] #1.00TIFF [facility] Formson 01-21-2023 Forms [id number] #1.00TIFF [facility] Ambulatory Visit Summaryon 1 Ambulatory Visit [...] RAMIREZ, Tonia Vasquez Where: [facility] Pathology Noteon 01-17-2023 Pathology Note [id number] #1.00TIFF [facility] Patient Educationon 01-18-20 Patient Education Oncology [...] Follow these instructions at home: ? Take jcxw-sgn-ybvmfzd and prescription medicines only as told by [...] important. Where to find more information ? [place] Cancer Society (ACS): cancer.org ? [place] Cancer [place] (NCI): cancer.gov Contact a health care provider [...] have wi (more content not included)... Normal [facility] Urology Office/Clinic Noteon 01-17-2023 Urology Office/Clinic Note [...] slides to [facility] for second opinion assuming [facility] general pathology states muscle is not present. [...] Contact Information BARB RAMIREZ, Tonia Vasquez, URL [address] [place] [address]- Additional Instructions: Sending path slides to [facility] [...] 10/22/2022 Giv (more content not included)... Normal [facility] Comment on above: Result Comment: Elec tronically Signed By: Tonia DEVRIES MD\.br\Date and Time Signed: 01/17/23 11:19 EDT\.br\Electronically Co-Signed By: Becka Kraft\.br\Date and Time Co-Signed: 01/17/23 11:17 EDT Lab Reportson 01-13-2023 Lab Reports [id number] #1.00TIFF [facility] Operative Reporton Operative Report [id number] #1.00TIFF [facility] Insurance Correspondenceon 1 Insurance Correspondence [id number] #1.00CD:127 Normal [facility] Lab Reportson 12-18-2022 Lab Reports [id number] #1.00CD:127 [facility] Lab Reports [id number] #1.00CD:127 Normal [facility] UroVysion Fish and Urine Cyt o ([facility])on 12-16-2022 UVFISH & UC Diagnosis Info Invalid Interpretation Code [facility] Comment on above: Result Comment: A:Ur ine,Bladder [...] on: 12/16/2022 21:17:44 Performed By: #### 1 [id number] ####[facility] [address] [place] [id number] Consent for Procedure/Surger yon 12-13-2022 Consent for Procedure/Surgery [id number] #1.00CD:127 Normal [facility] PSA Totalon 12-12-2022 Prostate specific Ag [Mass/Vol] 0.7 ng/mL Normal 0.1-3.5 [facility] Comment on above: Result Comment: The concentration of PSA determined by different manufacturers can vary due to differences in assay methods and reagent specificity. Values obtained from different assay methods cannot be used interchangeably. The methodology used for this result was chemiluminescence using [employer]'s Access Hybritech PSA reagent. Performed By: #### 1 [id number] #### [facility] [address] [place] [address] Consent for Procedure/Surger yon 12-11-2022 Consent for Procedure/Surgery [id number] #1.00CD:127 Normal [facility] Ambulatory Visit Summaryon 0 12-10-2022 Ambulatory Visit [...] [facility] [address], [place] [phone] Medications What How Much When Instructions Unchanged [...] Follow these instructions at home: ? Take dfjf-heg-xvwuymd and prescription medicines only as told by your health care provi (more content not included)... Normal [facility] Patient Educationon 12-11-19 Patient Education Oncology Bladder [...] Follow these instructions at home: ? Take atck-hmp-cozqukk and prescription medicines only as told by [...] important. Where to find more information ? [place] Cancer Society (ACS): cancer.org ? [place] Cancer [place] (NCI): cancer.gov Contact a health care provider [...] have wi (more content not included)... Normal [facility] UroVysion Fish and Urine Cyt o ([facility])on 12-10-2022 [facility] Method of Extraction Bladder Wash Normal [facility] Comment on above: Performed By: #### 1 [id number] ####[facility] [address] [place] [address] [facility] Number of Jars 1 Invalid Interpretation Code [facility] Comment on above: Performed By: #### 1 [id number] ####[facility] [address] [place] [address] [facility] Specimen Bladder Wash Normal [facility] Comment on above: Performed By: #### 1 [id number] ####[facility] [address] [place] [address] [facility] Type of Service Technical Only Normal [facility] Comment on above: Performed By: #### 1 [id number] ####[facility] [address] [place] [address] Urology Office/Clinic Noteon 12-10-2022 Urology Office/Clinic Note [...] [facility] [address] [place] [phone] Additional Instructions: sched TURBT Patient Education Bladder [...] Smokeless To (more content not included)... Normal [facility] Comment on above: Result Comment: [...] Tonia DEVRIES MD Where: [facility] Ambulatory Visit Summaryon 0 10-22-2022 Ambulatory Visit Summary DARIAN DUENAS :1955 Visit Date:10/22/2022 Ambulatory Visit Instructions Your Diagnosis Bladder cancer Tests Performed Urnls Dip Stick Auto w/o Microscopy POC 84401 Your Care Team Attending Physician - YAHAIRA [...] With: Tonia DEVRIES MD Where: [facility] Patient Educationon 10-23-19 23 Patient Education Oncology [...] Follow these instructions at home: ? Take ztbv-dse-gyyyccz and prescription medicines only as told by [...] important. Where to find more information ? [place] Cancer Society (ACS): cancer.org ? [place] Cancer [place] (NCI): cancer.gov Contact a health care provider [...] wi (more content not included)... Normal [facility] Urology Office/Clinic Noteon 10-22-2022 Urology Office/Clinic Note [...] Contact Information BARB RAMIREZ, Tonia Vasquez, URL [facility] [place] [address]- Additional Instructions: October cysto/FISH/cyto Patient Education Bladder [...] Protein Urine Dipstick: Negative (10/22/22 09:05:00) Specific [place] Urine Dipstick: 1.020 (10/22/22 09:05:00) Urine Appearance Urine Dipstick: Clear (10/22/22 09:05:00) Urine Color Urine Dipstick: Yellow (10/22/22 09:05:00) Urobilinogen Urine Dipstick: Normal 0.2-1 EU/dl (10/22/22 09:05:00) pH Urine Dipstick: 7 (10/22/22 09:05:00) Normal [facility] Comment on above: Result Comment: Elec tronically Signed By: YAHAIRA LONG PA-C\.br\Date and Time Signed: 10/22/22 09:47 EDT\.br\Electronically Co-Signed By: Becka Kraft\.br\Date and Time Co-Signed: 10/22/22 09:33 EDT Ambulatory Visit Summaryon 0 10-14-2022 Ambulatory Visit Summary DARIAN DUENAS :1955 Visit Date:10/14/2022 Ambulatory Visit Instructions Your Diagnosis Bladder cancer Tests Performed Urnls Dip Stick Auto w/o Microscopy POC 62917 Your Care Team Attending Physician - BARB [...] YAHAIRA LONG PA-C Where: [facility] Normal [address] [place] [address]- \.br\ You Need to Schedule the Following Appointments\.b r\ Follow Up with BARB RAMIREZ, Tonia Vasquez, ADAM When: \.br\ Comments:\.br\ BCG #6/6 on 10/22/22 with ANA M\.br\ Where:\.br\ [facility] [address]br\ [place] [address].br\ [phone]\.br\ Medications\.br \ What How Much When Instructions\.b r\ Unchanged mirabegron (Myrbetriq 50 mg oral tablet, extended release) 1 Tablets By Mouth Every day Contact prescribing physician if questions or concerns \.br\ Test Results\.br\ Urnls Dip Stick Auto w/o Microscopy POC 08155 (10/14/2022)\.b r\ Bilirubin Urine Dipstick - Negative\.br\ Blood Urine Dipstick - Trace-lysed\.br \ Glucose Urine Dipstick - Negative\.br\ Ketones Urine Dipstick - Negative\.br\ Leukocytes Urine Dipstick - Trace\.br\ Nitrite Urine Dipstick - Negative\.br\ Protein Urine Dipstick - Negative\.br\ Specific [place] Urine Dipstick - 1.020\.br\ Urine Appearance Urine Dipstick - Clear\.br\ Urine Color Urine Dipstick - Yellow\.br\ Urobilinogen Urine Dipstick - Normal 0.2-1 EU/dl\.br\ pH Urine Dipstick - 7\.br\ Medications and Immunizations Administered\.b r\ Given\.br\ Rhonda BCG Live (for intravesical use), 50 mg, IntraVesical. For: Bladder cancer\.br\ Mission BCG Live (for intravesical use), 50 mg, [...] these instructions at home:\.br\ ? \.br\ Take orgx-uxj-mlqtmk r and prescription medicines only as told [...] to find more information\.br \ ? \.br\ [place] Cancer Society (ACS): cancer.org\.br\ ? \.br\ National Cancer [place] (NCI): cancer.gov\.br\ Contact a health care provider [...] lab tests, imaging tests, and your symptoms.\.br\ [facility] Patient Educationon 10-15-19 Patient Education Oncology Bladder [...] Follow these instructions at home: ? Take kqle-aqb-oboqgki and prescription medicines only as told by [...] important. Where to find more information ? [place] Cancer Society (ACS): cancer.org ? [place] Cancer [place] (NCI): cancer.gov Contact a health care provider [...] have wi (more content not included)... Normal [facility] Urology Office/Clinic Noteon 10-14-2022 Urology Office/Clinic Note [...] Vasquez, URL [facility] [address] [place] [phone] Additional Instructions: BCG #6/6 on 10/22/22 with [...] Protein Urine Dipstick: Negative (10/14/22 09:52:00) Specific [place] Urine Dipstick: 1.020 (10/14/22 09:52:00) Urine Appearance Urine Dipstick: Clear (10/14/22 09:52:00) Urine Color Urine Dipstick: Yellow (10/14/22 09:52:00) Urobilinogen Urine Dipstick: Normal 0.2-1 EU (more content not included)... Normal [facility] Comment on above: Result Comment: [...] Follow these instructions at home: ? Take matr-dtl-zihdpsq and prescription medicines only as told by [...] important. Where to find more information ? [place] Cancer Society (ACS): cancer.org ? [place] Cancer [place] (NCI): cancer.gov Contact a health care provider [...] wi (more content not included)... Normal [facility] Urology Office/Clinic Noteon 10-08-2022 Urology Office/Clinic Note [...] BCG today due to national shortage. EORTC 48369 trial showed no difference between 1/3 dose and full-dose BCG in patients with high-risk disease. Patient is aware of the reasoning and is amenable to proceed as discussed. Follow up in one week for BCG #5 Follow-up With When Contact Information BARB RAMIREZ, Tonia Vasquez, URL [facility] [place] [phone]- Additional Instructions: one week for BCG #5 [...] Protein Urine Dipstick: Negative (10/08/22 09:05:00) Specific [place] Urine Dipstick: 1.025 (10/08/22 09:05:00) Urine Appearance Urine Dipstick: Clear (10/08/22 09:05:00) Urine Color Urine Dipstick: Yellow (10/08/22 09:05:00) Urobilinogen Urine Dipstick: Normal 0.2-1 EU/dl (10/08/22 09:05:00) pH Urine Dipstick: 6 (10/08/22 09:05:00) Normal [facility] Comment on above: Result Comment: Elec tronically Signed By: YAHAIRA LONG PA-C\.br\Date and Time Signed: 10/08/22 10:00 EDT\.br\Electronically Co-Signed By: Becka Kraft.cristobal\Date and Time Co-Signed: 10/08/22 09:19 EDT Ambulatory Visit Summaryon 0 09-17-2022 Ambulatory Visit Summary DARIAN DUENAS :1955 Visit Date:09/17/2022 Ambulatory Visit Instructions Your Diagnosis Bladder cancer Tests Performed Urnls Dip Stick Auto w/o Microscopy POC 13497 Your Care Team Attending Physician - YAHAIRA [...] Tonia DEVRIES MD Where: [facility] Invalid Interpretation Code [address] [place] [address] [place] [address]- \.br\ Friday 10:45 AM EDT \.br\ With: Tonia DEVRIES MD\.br\ Where: [facility] Patient Educationon 09-18-19 23 Patient Education Oncology [...] Follow these instructions at home: ? Take qzdg-uco-quatqwr and prescription medicines only as told by [...] important. Where to find more information ? [place] Cancer Society (ACS): cancer.org ? National Cancer [place] (NCI): cancer.gov Contact a health care provider [...] have wi (more content not included)... Normal [facility] Urology Office/Clinic Noteon 09-17-2022 Urology Office/Clinic Note [...] BCG today due to national shortage. EORTC 08703 trial showed no difference between 1/3 dose and full-dose BCG in patients with high-risk disease. Pt is aware of the reasoning and is amenable to proceed as discussed. Pt will come back in 1 wk for BCG #4 or sooner if needed. Follow-up With When Contact Information YAHAIRA LONG PA-C, URL In 1 week [address] [address] Additional Instructions: Sched BCG #4 Patient Education [...] mg= 1 tab(s), Oral, Daily, 3 refills Rhonda BCG Live (for intravesical use), 25 mg, [...] Dipstick: 1+ (30 mg/dl) (09/17/22 09:10:00) Specific [place] Urine Dipstick: 1.025 (09/17/22 09:10:00) Urine Appearance Urine Dipstick: Clear (09/17/22 09:10:00) Urine Color (more content not included)... Normal [facility] Comment on above: Result Comment: Elec tronically Signed By: YAHAIRA LONG PA-C\.br\Date and Time Signed: 09/17/22 10:01 EDT\.br\Electronically Co-Signed By: Adrienne Mojica\.br\Date and Time Co-Signed: 09/17/22 09:39 EDT Ambulatory Visit Summaryon 0 09-10-2022 Ambulatory Visit Summary DARIAN DUENAS :1955 Visit Date:09/10/2022 Ambulatory Visit Instructions Your Diagnosis Bladder cancer Tests Performed Urnls Dip Stick Auto w/o Microscopy POC 96914 Your Care Team Attending Physician - YAHAIRA [...] YAHAIRA LONG PA-C Where: [facility] Invalid Interpretation Code [address] [place] [address]- \.br\ Friday 8:45 AM EDT \.br\ With: YAHAIRA LONG PA-C\.br\ Where: [facility] Patient Educationon 09-11-19 Patient Education Oncology Bladder [...] Follow these instructions at home: ? Take xoxn-xaz-ylolgbr and prescription medicines only as told by [...] important. Where to find more information ? [place] Cancer Society (ACS): cancer.org ? National Cancer [place] (NCI): cancer.gov Contact a health care provider [...] wi (more content not included)... Normal [facility] Urology Office/Clinic Noteon 09-10-2022 Urology Office/Clinic Note [...] BCG today due to national shortage. EORTC 40618 trial showed no difference between 1/3 dose and full-dose BCG in patients with high-risk disease. Pt is aware of the reasoning and is amenable to proceed as discussed. Ordered: BCG, 25 mg, IntraVesical, Once, Stop date 09/10/22 9:01:00 EDT, Routine, Start date 09/10/22 9:01:00 EDT, 09/10/22 9:01:00 EDT Office Visit No Charge Urnls Dip Stick Auto w/o Microscopy POC 29666 Follow-up With When Contact Information [facility] [place] [address] [place] [address] Business (1) Additional Instructions: for [...] Dipstick: 2+ (100 mg/dl) (09/10/22 08:47:00) Specific [place] Urine Dipstick: >=1.030 (09/10/22 08:47:00) Urine Appearance Urine Dipstick: Clear (09/10/22 08:47:00) Urine Color Urine Dipstick: Yellow (09/10/22 08:47:00) Urobilinogen Urine Dipstick: Normal 0.2-1 EU/dl (09/10/22 08:47:00) pH Urine Dipstick: 5.5 (09/10/22 08:47:00) Normal [facility] Comment on above: Result Comment: Elec tronically Signed By: ETHAN VILLALTA, YAHAIRA Kilgore\.br\Date and Time Signed: 09/10/22 09:37 EDT Ambulatory Visit Summaryon 0 09-03-2022 Ambulatory Visit Summary DARIAN DUENAS :1955 Visit Date:09/03/2022 Ambulatory Visit Instructions Your Diagnosis Bladder cancer Tests Performed Urnls Dip Stick Auto w/o Microscopy POC 92620 Your Care Team Attending Physician - YAHAIRA [...] YAHAIRA LONG PA-C Where: [facility] Invalid Interpretation Code [address] [place] [address]- \.br\ Friday 8:45 AM EDT \.br\ With: YAHAIRA LONG PA-C\.br\ Where: [facility] Patient Educationon 09-04-19 23 Patient Education Oncology [...] Follow these instructions at home: ? Take xhmt-nos-tndbjtn and prescription medicines only as told by [...] important. Where to find more information ? [place] Cancer Society (ACS): cancer.org ? National Cancer [place] (NCI): cancer.gov Contact a health care provider [...] wi (more content not included)... Normal [facility] Urology Office/Clinic Noteon 09-03-2022 Urology Office/Clinic Note [...] BCG today due to national shortage. EORTC 05497 trial showed no difference between 1/3 dose and full-dose BCG in patients with high-risk disease. Pt is aware of the reasoning and is amenable to proceed as discussed. Ordered: BCG, 25 mg, IntraVesical, Once, Stop date 09/03/22 9:20:00 EDT, Routine, Start date 09/03/22 9:20:00 EDT, 09/03/22 9:20:00 EDT Urnls Dip Stick Auto w/o Microscopy POC 51261 Follow-up No qualifying data available Next week [...] Dipstick: 2+ (100 mg/dl) (09/03/22 08:59:00) Specific [place] Urine Dipstick: >=1.030 (09/03/22 08:59:00) Urine Appearance Urine Dipstick: Clear (09/03/22 08:59:00) Urine Color Urine Dipstick: Yellow (09/03/22 08:59:00) Urobilinogen Urine Dipstick: Normal 0.2-1 EU/dl (09/03/22 08:59:00) pH Urine Dipstick: 6 (09/03/22 08:59:00) [facility] Comment on above: Result Comment: Elec [...] Locations R1: This test was performed at: [facility], [address] [place] [address], [facility]- , , [facility] Comment on above: Performed By: #### 2 [id number] ####[place] [address] Consent for Procedure/Surger n 08-28-2022 Consent for Procedure/Surgery [id number] 5#[id number]:127 Normal [facility] Patient Educationon 08-28-19 23 Patient Education Urology [...] these instructions at home: Medicines ? Take tewp-qrl-gfqllyp and prescription medicines only as told by [...] provider. Document Revised: 10/20/2020 Document Reviewed: 10/20/2020 [employer] Patient Education ? 2022 [employer]. [facility] Urology Office/Clinic Noteon 08-27-2022 Urology Office/Clinic Note [...] for 7 day(s), 14 tab(s), Refill(s) 0, [facility], 182, cm, 08/27/22 9:05:00 EDT, Height/Length Dosing, 85, kg, 08/27/22 9:05:00 EDT, Weight Dosing E&M of Est. Patient Moderate 30-39 Min 99451 2. Bladder cancer (C67.9: Malignant neoplasm of bladder, unspecified) S/p TURBT w/ left stent placement 07/18/22. 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 Ordered: BCG, = 50 mL, IntraVesical, As Directed, Routine, Start date 08/27/22 8:55:00 EDT, 08/27/22 8:55:00 EDT sulfamethoxazole-tri methoprim, 1 tab(s), Oral, BID for 7 day(s), 14 tab(s), Refill(s) 0, [facility], 182, cm, 08/27/22 9:05:00 EDT, Height/Length Dosing, 85, kg, 08/27/22 9:05:00 EDT, Weight Dosing E&M of Est. Patient Moderate 30-39 Min 25217 Urnls Dip Stick Auto w/o Microscopy POC 21468 Follow-up No qualifying data available 1 week [...] Dipstick: 2+ (100 mg/dl) (08/27/22 09:02:00) Specific [place] Urine Dipstick: 1.025 (08/27/22 09:02:00) Urine Appearance Urine Dipstick: Clear (08/27/22 09:02:00) Urine Color Urine Dipstick: Yellow (08/27/22 09:02:00) Urobilinogen Urine Dipstick: Normal 0.2-1 EU/dl (08/27/22 09:02:00) pH Urine Dipstick: 6 (08/27/22 09:02:00) Normal [facility] Comment on above: Result Comment: Elec tronically Signed By: ETHAN PA-YAHAIRA Giraldo\.br\Date and Time Signed: 08/27/22 09:44 EDT CBC AUTO DIFFon 07-17-2022 BASO # 0.0 103/ul Normal 0.0-0.1 [facility] Comment on above: Performed By: #### C BC #### [facility] [address] [place] [address] Dr. Viktoria Nuñez Basophils/100 WBC (Bld) 0.3 % Normal 0.2-2.0 [facility] Comment on above: Performed By: #### C BC #### [facility] [address] [place] [address] Dr. Viktoria Nuñez EO # 0.0 103/ul Normal 0.0-0.7 [facility] Comment on above: Performed By: #### C BC #### [facility] [address] [place] [address] Dr. Viktoria Nuñez Eosinophils/100 WBC (Bld) 0.0 % Critically low 0.9-7.0 [facility] Comment on above: Performed By: #### C BC #### [facility] [address] [place] [address] Dr. Viktoria Nuñez Erythrocyte distribution width (RBC) [Ratio] 13.2 % Normal 11.0-15.0 [facility] Comment on above: Performed By: #### C BC #### [facility] [address] [place] [address] Dr. Viktroia Nuñez Hematocrit (Bld) [Volume fraction] 47.3 % Normal 42.0-54.0 [facility] Comment on above: Performed By: #### C BC #### [facility] [address] [place] [address] Dr. Viktoria Nuñez Hemoglobin (Bld) [Mass/Vol] 15.7 g/dL Normal 14.0-18.0 [facility] Comment on above: Performed By: #### C BC #### [facility] [address] [place] [address] Dr. Viktoria Nuñez IG # 0.03 10e3/ul Normal 0.00-0.03 [facility] Comment on above: Performed By: #### C BC #### [facility] [address] [place] [address] Dr. Viktoria Nuñez IG % 0.4 % Normal 0.0-0.5 [facility] Comment on above: Performed By: #### C BC #### [facility] [address] [place] [address] Dr. Viktoria Nuñez LYMPH # 1.4 103/ul Normal 1.2-3.8 [facility] Comment on above: Performed By: #### C BC #### [facility] [address] [place] [address] Dr. Viktoria Nuñez Lymphocytes/100 WBC (Bld) 18.6 % Critically low 20.5-60.0 [facility] Comment on above: Performed By: #### C BC #### [facility] [address] [place] [address] Dr. Viktoria Nuñez MANUAL DIFF REQ NO Normal [facility] Comment on above: Performed By: #### C BC #### [facility] [address] [place] [address] Dr. Viktoria Nuñez MCH (RBC) [Entitic mass] 30.7 pg Normal 25.9-34.0 [facility] Comment on above: Performed By: #### C BC #### [facility] [address] [place] [address] Dr. Viktoria Nuñez MCHC (RBC) [Mass/Vol] 33.2 g/dL Normal 29.9-35.2 [facility] Comment on above: Performed By: #### C BC #### [facility] [address] [place] [address] Dr. Viktoria Nuñez MCV (RBC) [Entitic vol] 92.4 fL Normal 80.0-94.0 [facility] Comment on above: Performed By: #### C BC #### [facility] [address] [place] [address] Dr. Viktoria Nuñez MONO # 0.6 103/ul Normal 0.3-0.8 [facility] Comment on above: Performed By: #### C BC #### [facility] [address] [place] [address] Dr. Viktoria Nuñez Monocytes/100 WBC (Bld) 7.6 % Normal 1.7-12.0 [facility] Comment on above: Performed By: #### C BC #### [facility] [address] [place] [address] Dr. Viktoria Nuñez NEUT # 5.4 103/ul Normal 1.4-6.5 [facility] Comment on above: Performed By: #### C BC #### [facility] [address] [place] [address] Dr. Viktoria Nuñez Neutrophils/100 WBC (Bld) 73.1 % Normal 43.0-75.0 [facility] Comment on above: Performed By: #### C BC #### [facility] [address] [place] [address] Dr. Viktoria Nuñez Platelet mean volume (Bld) [Entitic vol] 10.1 fL Normal 9.5-13.5 [facility] Comment on above: Performed By: #### C BC #### [facility] [address] [place] [address] Dr. Viktoria Nuñez PLT 235 103/ul Normal 150-450 [facility] Comment on above: Performed By: #### C BC #### [facility] [address] [place] [address] Dr. Viktoria Nuñez RBC 5.12 106/ul Normal 4.70-6.10 [facility] Comment on above: Performed By: #### C BC #### [facility] [address] [place] [address] Dr. Viktoria Nuñez WBC 7.4 103/ul Normal 4.0-11.0 [facility] Comment on above: Performed By: #### C BC #### [facility] [address] [place] [address] Dr. Viktoria Nuñez PROF CHEM 8 (BAS METB)on Anion gap [Moles/Vol] 12.2 mmol/L Normal [facility] Comment on above: Performed By: #### B MP #### [facility] [address] [place] [address] Dr. Viktoria Nuñez Calcium [Mass/Vol] 9.6 mg/dL Normal 8.5-10.1 [facility] Comment on above: Performed By: #### B MP #### [facility] [address] [place] [address] [address] Viktoria Nuñez Chloride [Moles/Vol] 107 mmol/L Normal 98-107 [facility] Comment on above: Performed By: #### B MP #### [facility] [address] [place] [address] [address] Viktoria Nuñez CO2 [Moles/Vol] 27.9 mmol/L Normal 21.0-32.0 The [facility] Comment on above: Performed By: #### B MP #### [facility] [address] [place] [address] Dr. Viktoria Nuñez Creatinine [Mass/Vol] 1.15 mg/dL Normal 0.70-1.30 [facility] Comment on above: Performed By: #### B MP #### [facility] [address] [place] [address] Dr. Viktoria Nuñez EGFR-AF PERUVIAN >60 Normal >=60 [facility] Comment on above: Performed By: #### B MP #### [facility] [address] [place] [address] Dr. Viktoria Nuñez EGFR-NON AF PERUVIAN >60 Normal >=60 [facility] Comment on above: Performed By: #### B MP #### [facility] [address] [place] [address] Dr. Viktoria Nuñez Glucose [Mass/Vol] 110 mg/dL Critically high 74-106 [facility] Comment on above: Performed By: #### B MP #### [facility] [address] [place] [address] [address] Viktoria Nuñez Potassium [Moles/Vol] 4.1 mmol/L Normal 3.5-5.1 [facility] Comment on above: Performed By: #### B MP #### [facility] [address] [place] [address] [address] Viktoria Nuñez Sodium [Moles/Vol] 143 mmol/L Normal 136-145 [facility] Comment on above: Performed By: #### B MP #### [facility] [address] [place] [address] Dr. Viktoria Nuñez Urea nitrogen [Mass/Vol] 20.0 mg/dL Critically high 7.0-18.0 [facility] Comment on above: Performed By: #### B MP #### [facility] [address] [place] [address] Dr. Viktoria Nuñez Urea nitrogen/Creatinine [Mass ratio] 17.4 mg/mg Normal [facility] Comment on above: Performed By: #### B MP #### [facility] [address] [place] [address] Dr. Viktoria Nuñez PROTIMEon 07-17-2022 INR Coag (PPP) [Relative time] 1.03 {INR} Normal [facility] Comment on above: Performed By: #### P T, PTT #### [facility] [address] [place] [address] Dr. Viktoria Nuñez INR GUIDELINES SEE BELOW Normal [facility] Comment on above: Result Comment: RODDY RED INR: 2.0 - 3.0 CONDITIONS NOT LISTED BELOW 2.5 - 3.5 FOR PROSTHETIC HEART VALVE REPLACEMENT 2.5 - 3.5 RECURRENT THROMBOSIS Performed By: #### P T, PTT #### [facility] [address] [place] [address] Dr. Viktoria Nuñez PT Coag (PPP) [Time] 10.9 s Normal 9.0-11.6 [facility] Comment on above: Performed By: #### P T, PTT #### [facility] [address] [place] [address] Dr. Viktoria Nuñez PTTon 07-17-2022 aPTT Coag (Bld) [Time] 28.0 s Normal 22.3-36.2 [facility] Comment on above: Performed By: #### P T, PTT #### [facility] [address] [place] [address] Dr. Viktoria Nuñez CREATININEon 06-27-2022 Creatinine [Mass/Vol] 0.96 mg/dL Normal 0.70-1.30 [facility] Comment on above: Performed By: #### C CHRISTOPHER #### [facility] [address] [place] [address] [address] Viktoria Nuñez EGFR-AF PERUVIAN >60 Normal >=60 [facility] Comment on above: Performed By: #### C CHRISTOPHER #### [facility] [address] [place] [address] [address] Viktoria Nuñez EGFR-NON AF PERUVIAN >60 Normal >=60 [facility] Comment on above: Performed By: #### C CHRISTOPHER #### [facility] [address] [place], [place] [address] [address] Nuñez [address] ABD/PELV WO W [...] by: CLARIBEL COX Date: 2022-06-27 09:55 Normal [facility] XR shoulder RT min 2V*on XR shoulder RT min 2V* [facility] [employer] [address] [place] [address] XRay Report Signed Patient: Darian Duenas MR#: [id number] 65 : 1955 Acct:[id number] Age/Sex: 67 / M ADM Date: 06/10/22 Loc: [facility] Room: Type: [facility] Attending Dr: Mickie Cooper MD Copies to: [...] Cristi Dwyer M.D.06/10/2022 8:07 PM Dictation Location: [place] [address] Transcribed By: [facility] 06/10/222006 Dictated By: Cristi Dwyer II, MD 06/10/222002 Signed By: 06/10/222006 Normal [facility] MR lumbar spine wo conon 12- 29-2022 MR lumbar spine wo con [facility] [employer] [address] [place] [address] MRI Report Signed Patient: Darian Duenas MR#: [id number] 65 : 1955 Acct:[id number] Age/Sex: 66 / M ADM Date: 03/21/22 [facility] Room: Type: REG CLI Attending [...] 3:41 PM Dictation Location: RADIO-PC-12 Transcribed By: [facility] 03/21/22 154 Dictated By: Apple Lentz MD 03/21/221530 Signed By: 03/21/22 154 [facility] XR knee LT 2Von 12-03-2021 XR knee LT 2V [facility] [place] [address] XRay Report Signed Patient: Darian Duenas MR#: [id number] 65 : 1955 Acct:[id number] Age/Sex: 66 / M ADM Date: 12/03/21 Loc: [facility] Room: Type: [facility] Attending Dr: Nahid Canchola DO Copies to: [...] 3:33 PM Dictation Location: RADIO-PC-11 Transcribed By: [facility] 12/03/211532 Dictated By: Naun Haywood Jr, DO 12/03/211532 Signed By: 12/03/211532 [facility] XR knee LT 2V [facility] [employer] [employer] Other XR knee LT 2V [facility] [employer] [facility] [employer] [facility] Other XR knee LT 2V [facility] [employer] [facility] [place] [address] [facility] [employer] [facility] Other XR knee LT 2V XRay Report [facility] Other XR knee LT 2V Signed [employer] Other XR knee LT 2V Patient: Darian Duenas MR#: [id number] [facility] [employer] [facility] Other XR knee LT 2V 66 [facility] Other XR knee LT 2V : 1955 Acct:[id number] [facility] Other XR knee LT 2V Age/Sex: 66 / M ADM Date: 12/03/21 [facility] [employer] [facility] Other XR knee LT 2V Loc: [facility] Room: Type: [facility] [employer] Other XR knee LT 2V Attending Dr: Nahid Canchola DO [employer] [facility] Other XR knee LT 2V Copies to: Nahid Canchola DO [employer] [facility] [employer] Other XR knee LT 2V Ordering Provider: Nahid Canchola DO [employer] [facility] Other XR knee LT 2V Date of Service: 12/03/21 [employer] [facility] [employer] Other XR knee LT 2V XR/XR knee LT 2V: Status post total left knee replacement [employer] [facility] Other XR knee LT 2V LEFT KNEE - 2 views No rt [employer] [facility] Other XR knee LT 2V CLINICAL HISTORY: Follow-up [facility] [employer] [facility] [employer] Other XR knee LT 2V COMPARISON: 07/05/2021 [employer] [facility] Other XR knee LT 2V FINDINGS: [employer] [facility] Other XR knee LT 2V No hardware complication. [employer] [facility] Other XR knee LT 2V XR/XR knee LT 2V [employer] [facility] Other XR knee LT 2V IMPRESSION: [email or web address] Other XR knee LT 2V NO HARDWARE COMPLICATION. NO ACUTE BONY PROCESS. [employer] [facility] Other XR knee LT 2V Impression dictated by: Naun Haywood Jr., D.ODeedee12/03/2021 3:33 PM [employer] [facility] Other XR knee LT 2V Dictation Location: [place] [address] [employer] [facility] Other XR knee LT 2V Transcribed By: PWS 12/03/21 [facility] [employer] [facility] Other XR knee LT 2V Dictated By: Naun Haywood Jr, DO 12/03/21 [facility] [employer] [facility] Other XR knee LT 2V Signed By: [employer] [facility] Other XR knee LT 2V 12/03/21 [facility] [employer] Other XR pre/post mri xrayon 11-14 XR pre/post mri xray [facility] [place] [address] MRI Report Signed Patient: Darian Duenas MR#: [id number] 65 : 1955 Acct:[id number] Age/Sex: 66 / M ADM Date: 11/14/21 Loc: [facility] Room: Type: REG CLI Attending Dr: Nahid Canchola DO Copies to: Nahid Canchola DO Ordering Provider: Nahid Canchola DO Date of Service: 11/14/21 MR/MR femur LT wo con: Status post total left knee replacement ([id number]) XR/XR pre/post mri xray: Z96.652 MR femur [...] Cristi Dwyer M.D.11/14/2021 3:52 PM Dictation Location: [place] [address] Transcribed By: [facility] 11/14/21 1552 Dictated By: Cristi Dwyer II, MD 11/14/21 1545 Signed By: 11/14/21 1552 Normal [facility] XR lumbar spine AP/LAT/FLX/E XTon 10-26-2021 XR lumbar spine AP/LAT/FLX/EXT [facility] Main [place] [id number] XRay Report Signed Patient: Darian Duenas MR#: [id number] 65 : 1955 Acct:[id number] Age/Sex: 66 / M ADM Date: 10/26/21 Loc: [facility] Room: Type: [facility] CLI Attending Dr: Nahid Canchola DO [...] Haywood Jr., D.O.10/26/2021 2:45 PM Dictation Location: [place] [address] Transcribed By: [facility] 10/26/21 1445 Dictated By: Naun Haywood Jr, DO 10/26/21 1443 Signed By: 10/26/21 1445 Normal [facility] C-Reactive Proteinon 022 C-Reactive Protein 1.4 mg/dL High 0.0-1.0 [facility] Comment on above: Result Comment: PERF ORMED BY: [place] [address] PATHOLOGIST TABLE MAKER MARIELA OLVERA M.D. Performed By: #### C RP, CBC, ESR #### [facility] [address] [place] [address] Complete Blood Count Auto Di ffon 08-01-2021 Basophils (Bld) [#/Vol] 0.1 10*3/uL Normal 0.0-0.2 [facility] Comment on above: Performed By: #### C RP, CBC, ESR #### [facility] [address] [place] [address] Basophils/100 WBC (Bld) 0.8 % Normal . [facility] Comment on above: Performed By: #### C RP, CBC, ESR #### [address] [place] [address] [place] Eosinophils (Bld) [#/Vol] 0.2 10*3/uL Normal 0.0-0.45 [facility] Comment on above: Performed By: #### C RP, CBC, ESR #### [address] Eosinophils/100 WBC (Bld) 1.9 % Normal . [facility] Comment on above: Performed By: #### C RP, CBC, ESR #### [address] Erythrocyte distribution width (RBC) [Ratio] 13.8 % Normal 12.0-14.8 [facility] Comment on above: Performed By: #### C RP, CBC, ESR #### [address] Hematocrit (Bld) [Volume fraction] 39.2 % Normal 38.8-50.0 [facility] Comment on above: Performed By: #### C RP, CBC, ESR #### [address] Hemoglobin (Bld) [Mass/Vol] 13.3 g/dL Normal 13.0-17.0 [facility] Comment on above: Performed By: #### C RP, CBC, ESR #### [address] Lymphocytes (Bld) [#/Vol] 1.9 10*3/uL Normal 1.00-4.8 [facility] Comment on above: Performed By: #### C RP, CBC, ESR #### [place] [address] [place] Lymphocytes/100 WBC (Bld) 22.3 % Normal . [facility] Comment on above: Performed By: #### C RP, CBC, ESR #### [address] MCH (RBC) [Entitic mass] 31.3 pg Normal 27.5-35.2 [facility] Comment on above: Performed By: #### C RP, CBC, ESR #### [facility] [address] MCV (RBC) [Entitic vol] 92.2 fL Normal 83.5-101 [facility] Comment on above: Performed By: #### C RP, CBC, ESR #### [facility] [address] Mean Corpuscular HGB Conc 33.9 g/dL Normal 32.5-35.6 [facility] Comment on above: Performed By: #### C RP, CBC, ESR #### [facility] [address] Monocytes (Bld) [#/Vol] 0.7 10*3/uL Normal 0.0-0.8 [facility] Comment on above: Performed By: #### C RP, CBC, ESR #### [address] Monocytes/100 WBC (Bld) 8.8 % Normal . [facility] Comment on above: Performed By: #### C RP, CBC, ESR #### [facility] [address] [place] [address] [place] Neutrophils (Bld) [#/Vol] 5.5 10*3/uL Normal 1.8-7.7 [facility] Comment on above: Performed By: #### C RP, CBC, ESR #### [facility] [address] Neutrophils/100 WBC (Bld) 66.2 % Normal . [facility] Comment on above: Performed By: #### C RP, CBC, ESR #### [facility] [address] [place] [address] [place] Nucleated RBC/100 WBC (Bld) [Ratio] 0.0 % Normal 0-0.5 [facility] Comment on above: Performed By: #### C RP, CBC, ESR #### [facility] [address] Platelet mean volume (Bld) [Entitic vol] 8.5 fL Normal 6.6-10.1 [facility] Comment on above: Performed By: #### C RP, CBC, ESR #### [facility] [address] Platelets (Bld) [#/Vol] 380 10*3/uL Normal 150-450 [facility] Comment on above: Performed By: #### C RP, CBC, ESR #### [address] RBC (Bld) [#/Vol] 4.25 10*6/uL Normal 3.90-5.60 [facility] Comment on above: Performed By: #### C RP, CBC, ESR #### [address] WBC (Bld) [#/Vol] 8.3 10*3/uL Normal 4.5-11.0 [facility] Comment on above: Performed By: #### C RP, CBC, ESR #### [address] Erythrocyte Sedimentation Ra susan 08-01-2021 ESR (Bld) [Velocity] 39 mm/h High 0-19 [facility] Comment on above: Result Comment: PERF ORMED BY: [place] [address] PATHOLOGIST TABLE MAKER MARIELA OLVERA M.D. Performed By: #### C RP, CBC, ESR #### [address] Renny 07-05-2021 L Specimen: Received: 07/05/21 Status: VALERY Hammond Num: [id number] Spec Type: Surgical Subm Dr: Nahid Canchola, DO Tissues: A Joint/Knee (L KNEE) Procedures: HE Stain, Gross/Micro L4, Decal Patient Age/Sex Location Account Attending Physician Darian Duenas 66/[facility] [id number] Nahid Canchola DO SPEC NUM: [id number] RECD: 07/05/21 STATUS: VALERY HAMMOND NUM: [id number] MELISSA: 07/05/21 DR: Nahid Canchola DO ENTERED: 07/05/21 [facility] DR: ALEXANDER TYPE: Surgical DEPT: S ORDERED: [...] reveals shine, focally sclerotic cut surfaces. A help desk representative section of bone is submitted following formalin fixation and decalcification . (SM/JS) Microscopic Description One glass slide with H E stained material has been examined. The microscopic findings support the above pathologic diagnosis. [id number] Specimen: Received: 07/05/21 Status: VALERY Hammond Num: [id number] Spec Type: Surgical Subm Dr: Nahid Canchola DO Tissues: A Joint/Knee (L KNEE) Procedures: HE Stain, Gross/Micro L4, Decal Patient: Darian Duenas [id number] (Continued) Signed (signature on file) Mariela Olvera MD 07/10/21 1843 [facility] XR knee LT 2Von 07-05-2021 XR knee LT 2V [place] [address] XRay Report Signed Patient: Darian Duenas MR#: [id number] 65 : 1955 Acct:[id number] Age/Sex: 66 / M ADM Date: 07/05/21 Loc: [place] Room: Type: [facility] Attending Dr: Nahid Canchola DO Ordering Provider: [...] Apple Lentz M.D.07/05/2021 1:35 PM Dictation Location: [place] [address] Transcribed By: [facility] 07/05/21 449 Dictated By: Apple Lentz MD 07/05/211332 Signed By: 07/05/211334 [facility] SARS-CoV-2 (COVID-19) RNA VIC+probe Ql (Unsp spec) Negative Normal Negative [facility] Comment on above: Order Comment: Healt hcare Worker?: N Result Comment: Testing for SARS-CoV-2 by RT-PCR This test was developed and its performance characteristics determined by [employer] and validated at the [facility]. This test has not been FDA cleared [...] is terminated or revoked sooner. PERFORMED BY: [place] [address] PATHOLOGIST TABLE MAKER MARIELA OLVERA M.D. Performed By: #### C OVID [address] [facility] #### [address] Complete Blood Count Auto Di ffon 07-03-2021 Basophils (Bld) [#/Vol] 0.0 10*3/uL Normal 0.0-0.2 [facility] Comment on above: Result Comment: PERF ORMED BY: [place] [address] PATHOLOGIST TABLE MAKER MARIELA OLVERA M.D. Performed By: #### C MP, CBC #### [address] Basophils/100 WBC (Bld) 0.3 % Normal . [facility] Comment on above: Performed By: #### C MP, CBC #### [address] Eosinophils (Bld) [#/Vol] 0.2 10*3/uL Normal 0.0-0.45 [facility] Comment on above: Performed By: #### C MP, CBC #### [facility] [address] [place] [address] [place] Eosinophils/100 WBC (Bld) 2.5 % Normal . [facility] Comment on above: Performed By: #### C MP, CBC #### [facility] [address] Erythrocyte distribution width (RBC) [Ratio] 13.5 % Normal 12.0-14.8 [facility] Comment on above: Performed By: #### C MP, CBC #### [address] Hematocrit (Bld) [Volume fraction] 42.9 % Normal 38.8-50.0 [facility] Comment on above: Performed By: #### C MP, CBC #### [address] Hemoglobin (Bld) [Mass/Vol] 14.6 g/dL Normal 13.0-17.0 [facility] Comment on above: Performed By: #### C MP, CBC #### [address] Lymphocytes (Bld) [#/Vol] 1.6 10*3/uL Normal 1.00-4.8 [facility] Comment on above: Performed By: #### C MP, CBC #### [place] [address] [place] Lymphocytes/100 WBC (Bld) 23.6 % Normal . [facility] Comment on above: Performed By: #### C MP, CBC #### [place] [address] [place] MCH (RBC) [Entitic mass] 32.1 pg Normal 27.5-35.2 [facility] Comment on above: Performed By: #### C MP, CBC #### [address] MCV (RBC) [Entitic vol] 94.3 fL Normal 83.5-101 [facility] Comment on above: Performed By: #### C MP, CBC #### [facility] [address] Mean Corpuscular HGB Conc 34.0 g/dL Normal 32.5-35.6 [facility] Comment on above: Performed By: #### C MP, CBC #### [facility] [address] [place] [address] [place] Monocytes (Bld) [#/Vol] 0.5 10*3/uL Normal 0.0-0.8 [facility] Comment on above: Performed By: #### C MP, CBC #### [facility] [address] [place] [address] [place] Monocytes/100 WBC (Bld) 7.8 % Normal . [facility] Comment on above: Performed By: #### C MP, CBC #### [facility] 1111 [place] [address] [place] Neutrophils (Bld) [#/Vol] 4.3 10*3/uL Normal 1.8-7.7 [facility] Comment on above: Performed By: #### C MP, CBC #### [facility] [address] [place] [id number] [place] Neutrophils/100 WBC (Bld) 65.8 % Normal . [facility] Comment on above: Performed By: #### C MP, CBC #### [facility] [address] [place] [address] [place] Nucleated RBC/100 WBC (Bld) [Ratio] 0.1 % Normal 0-0.5 [facility] Comment on above: Performed By: #### C MP, CBC #### [facility] [address] [place] [id number] [place] Platelet mean volume (Bld) [Entitic vol] 9.1 fL Normal 6.6-10.1 [facility] Comment on above: Performed By: #### C MP, CBC #### [facility] [address] [place] [id number] [place] Platelets (Bld) [#/Vol] 237 10*3/uL Normal 150-450 [facility] Comment on above: Performed By: #### C MP, CBC #### [address] RBC (Bld) [#/Vol] 4.55 10*6/uL Normal 3.90-5.60 [facility] Comment on above: Performed By: #### C MP, CBC #### [address] WBC (Bld) [#/Vol] 6.6 10*3/uL Normal 4.5-11.0 [facility] Comment on above: Performed By: #### C MP, CBC #### [address] Comprehensive Metabolic Pane renny 07-03-2021 Albumin [Mass/Vol] 3.7 g/dL Normal 3.2-5.5 [facility] Comment on above: Performed By: #### C MP, CBC #### [address] Albumin/Globulin [Mass ratio] 1.4 {ratio} Normal [facility] Comment on above: Performed By: #### C MP, CBC #### [address] ALP [Catalytic activity/Vol] 54 U/L Normal 32-92 [facility] Comment on above: Result Comment: PERF ORMED BY: [place] [address] PATHOLOGIST TABLE MAKER MARIELA OLVERA M.D. Performed By: #### C MP, CBC #### [address] ALT [Catalytic activity/Vol] 20 U/L Normal 10-60 [facility] Comment on above: Performed By: #### C MP, CBC #### [address] AST [Catalytic activity/Vol] 21 U/L Normal 10-42 [facility] Comment on above: Performed By: #### C MP, CBC #### [address] Bilirubin [Mass/Vol] 0.6 mg/dL Normal 0.3-1.2 [facility] Comment on above: Performed By: #### C MP, CBC #### [address] Calcium [Mass/Vol] 9.6 mg/dL Normal 8.2-10.2 [facility] Comment on above: Performed By: #### C MP, CBC #### [address] Chloride [Moles/Vol] 105 mmol/L Normal 95-114 [facility] Comment on above: Performed By: #### C MP, CBC #### [address] CO2 [Moles/Vol] 26.1 mmol/L Normal 22.0-30.0 [facility] Comment on above: Performed By: #### C MP, CBC #### [address] Creatinine [Mass/Vol] 1.10 mg/dL Normal 0.64-1.27 [facility] Comment on above: Performed By: #### C MP, CBC #### [address] Estimated GFR ( Vani > 60 Normal [facility] Comment on above: Result Comment: GFR estimated reference range: According to KDOQI guidelines, <60 ml/min/1.73m2 is sufficient to diagnose a patient with chronic kidney disease. Performed By: #### C MP, CBC #### [place] [address] [place] Estimated GFR (Non- Am > 60 Normal [facility] Comment on above: Performed By: #### C MP, CBC #### [place] [address] [place] Globulin (S) [Mass/Vol] 2.7 g/dL Normal [facility] Comment on above: Performed By: #### C MP, CBC #### [place] [address] [place] Glucose [Mass/Vol] 102 mg/dL High 70-100 [facility] Comment on above: Result Comment: [place] Glucose Reference Range is dependent on time and content of last meal. Glucose of more than 200 mg/dL in a nonstressed, ambulatory subject supports the diagnosis of Diabetes Mellitus. ADA recommended reference range Performed By: #### C MP, CBC #### [facility] [address] [place] [id number] [place] Potassium [Moles/Vol] 4.5 mmol/L Normal 3.5-5.1 [facility] Comment on above: Performed By: #### C MP, CBC #### [facility] [address] [place] [address] [place] Protein [Mass/Vol] 6.4 g/dL Normal 6.1-7.9 [facility] Comment on above: Performed By: #### C MP, CBC #### [facility] [address] [place] [address] [place] Sodium [Moles/Vol] 140 mmol/L Normal 136-146 [facility] Comment on above: Performed By: #### C MP, CBC #### [facility] [address] [place] [address] [place] Urea nitrogen [Mass/Vol] 17 mg/dL Normal 9-23 [facility] Comment on above: Performed By: #### C MP, CBC #### [facility] [address] [place] [address] [place] Vital Signs Date Time Vital Sign Value Performing Clinician Facility 06-24-2023 13:09-0400 Body temperature 98.6 [degF] Tonia DEVRIES [facility] 06-24-2023 13:09-0400 Diastolic blood pressure 77 mm[Hg] Tonia DEVRIES [facility] 06-24-2023 13:09-0400 Heart rate 69 /min Tonia DEVRIES [facility] 06-24-2023 13:09-0400 Respiratory rate 16 /min Tonia DEVRIES [facility] 06-24-2023 13:09-0400 Systolic blood pressure 132 mm[Hg] Tonia DEVRIES [facility] 05-13-2023 09:10-0500 Blood Pressure Location YAHAIRA LONG [facility] 05-13-2023 09:10-0500 Diastolic blood pressure 74 mm[Hg] YAHAIRA ETHAN [facility] 05-13-2023 09:10-0500 Heart rate 68 /min YAHAIRA ETHAN [facility] 05-13-2023 09:10-0500 Respiratory rate 16 /min YAHAIRA TEHAN [facility] 05-13-2023 09:10-0500 Systolic blood pressure 128 mm[Hg] YAHAIRA ETHAN [facility] 05-05-2023 08:39-0500 Blood Pressure Location Tonia DEVRIES [facility] 05-05-2023 08:39-0500 Diastolic blood pressure 71 mm[Hg] Tonia DEVRIES [facility] 05-05-2023 08:39-0500 Heart rate 67 /min Tonia DEVRIES [facility] 05-05-2023 08:39-0500 Respiratory rate 16 /min Tonia DEVRIES [facility] 05-05-2023 08:39-0500 Systolic blood pressure 129 mm[Hg] Tonia DEVRIES [facility] 03-28-2023 18:00-0500 Body height 182.88 cm Margaret Friasmond [facility] Other 03-28-2023 18:00-0500 Body mass index (BMI) [Ratio] 25.71 kg/m2 Margaret Hayley Other [facility] Other 03-28-2023 18:00-0500 Body temperature 99.6 [degF] Margaret Hayley Other [facility] Other 03-28-2023 18:00-0500 Body weight 86 kg Margaret Friasmond Other [facility] Other 03-28-2023 18:00-0500 Diastolic blood pressure 72 mm[Hg] Margaret Hayley Other [facility] Other 03-28-2023 18:00-0500 Respiratory rate 18 /min Margaret Friasmond [facility] Other 03-28-2023 18:00-0500 SaO2% (BldA) [Mass fraction] 99 % Margaret Hayley Other [facility] Other 03-28-2023 18:00-0500 Systolic blood pressure 133 mm[Hg] Margaret Hayley Other [facility] Other 03-03-2023 09:12-0500 Blood Pressure Location Tonia DEVRIES [facility] 03-03-2023 09:12-0500 Diastolic blood pressure 79 mm[Hg] Tonia DEVRIES [facility] 03-03-2023 09:12-0500 Heart rate 80 /min Tonia DEVRIES [facility] 03-03-2023 09:12-0500 Respiratory rate 16 /min Tonia DEVRIES [facility] 03-03-2023 09:12-0500 Systolic blood pressure 126 mm[Hg] Tonia DEVRIES [facility] 01-17-2023 10:25-0400 Blood Pressure Location Tonia DEVRIES [facility] 01-17-2023 10:25-0400 Diastolic blood pressure 66 mm[Hg] Tonia DEVRIES [facility] 01-17-2023 10:25-0400 Heart rate 62 /min Tonia DEVRIES [facility] 01-17-2023 10:25-0400 Respiratory rate 16 /min Tonia DEVRIES [facility] 01-17-2023 10:25-0400 Systolic blood pressure 121 mm[Hg] Tonia DEVRIES [facility] 12-10-2022 13:19-0400 Blood Pressure Location Tonia DEVRIES [facility] 12-10-2022 13:19-0400 Diastolic blood pressure 88 mm[Hg] Tonia DEVRIES [facility] 12-10-2022 13:19-0400 Heart rate 60 /min Tonia DEVRIES [facility] 12-10-2022 13:19-0400 Systolic blood pressure 137 mm[Hg] Tonia DEVRIES [facility] 10-22-2022 09:07-0400 Blood Pressure Location YAHAIRA ETHAN [facility] 10-22-2022 09:07-0400 Diastolic blood pressure 73 mm[Hg] YAHAIRA ETHAN [facility] 10-22-2022 09:07-0400 Heart rate 60 /min YAHAIRA ETHAN [facility] 10-22-2022 09:07-0400 Systolic blood pressure 118 mm[Hg] YAHAIRA ETHAN [facility] 10-08-2022 09:01-0400 Blood Pressure Location YAHAIRA ETHAN [facility] 10-08-2022 09:01-0400 Diastolic blood pressure 80 mm[Hg] YAHAIRA ETHAN [facility] 10-08-2022 09:01-0400 Heart rate 80 /min YAHAIRA ETHAN [facility] 10-08-2022 09:01-0400 Respiratory rate 16 /min YAHAIRA ETHAN [facility] 10-08-2022 09:01-0400 Systolic blood pressure 130 mm[Hg] YAHAIRA ETHAN [facility] 09-17-2022 09:11-0400 Blood Pressure Location YAHAIRA ETHAN [facility] 09-17-2022 09:11-0400 Diastolic blood pressure 74 mm[Hg] YAHAIRA ETHAN [facility] 09-17-2022 09:11-0400 Heart rate 80 /min YAHAIRA ETHAN [facility] 09-17-2022 09:11-0400 Respiratory rate 16 /min YAHAIRA ETHAN [facility] 09-17-2022 09:11-0400 Systolic blood pressure 128 mm[Hg] YAHAIRA ETHAN [facility] 09-10-2022 08:55-0400 Blood Pressure Location YAHAIRA ETHAN [facility] 09-10-2022 08:55-0400 Diastolic blood pressure 70 mm[Hg] YAHAIRA ETHAN [facility] 09-10-2022 08:55-0400 Heart rate 66 /min YAHAIRA ETHAN [facility] 09-10-2022 08:55-0400 Systolic blood pressure 127 mm[Hg] YAHAIRA ETHAN [facility] 09-03-2022 09:00-0400 Blood Pressure Location YAHARIA ETHAN [facility] 09-03-2022 09:00-0400 Diastolic blood pressure 74 mm[Hg] YAHAIRA ETHAN [facility] 09-03-2022 09:00-0400 Heart rate 68 /min YAHAIRA ETHAN [facility] 09-03-2022 09:00-0400 Respiratory rate 16 /min YAHAIRA ETHAN [facility] 09-03-2022 09:00-0400 Systolic blood pressure 128 mm[Hg] YAHAIRA ETHAN [facility] 08-27-2022 09:03-0400 Blood Pressure Location YAHAIRA ETHAN [facility] 08-27-2022 09:03-0400 Diastolic blood pressure 76 mm[Hg] YAHAIRA ETHAN [facility] 08-27-2022 09:03-0400 Heart rate 80 /min YAHAIRA ETHAN [facility] 08-27-2022 09:03-0400 Respiratory rate 16 /min YAHAIRA ETHAN [facility] 08-27-2022 09:03-0400 Systolic blood pressure 132 mm[Hg] YAHAIRA ETHAN [facility] 07-26-2022 08:44-0400 Blood Pressure Location Tonia DEVRIES [facility] 07-26-2022 08:44-0400 Diastolic blood pressure 90 mm[Hg] Tonia DEVRIES [facility] 07-26-2022 08:44-0400 Heart rate 68 /min Tonia DEVRIES [facility] 07-26-2022 08:44-0400 Respiratory rate 16 /min Tonia DEVRIES [facility] 07-26-2022 08:44-0400 Systolic blood pressure 128 mm[Hg] Tonia DEVRIES [facility] 03-29-2022 10:45-0500 Body height 182.88 cm Nahid Canchola Other [facility] Other 03-29-2022 10:45-0500 Body mass index (BMI) [Ratio] 25.09 kg/m2 Nahid Canchola Other [facility] Other 03-29-2022 10:45-0500 Body weight 83.92 kg Nahid Canchola Other [facility] Other 01-07-2022 12:22-0400 Blood Pressure Location Tonia DEVRIES [facility] 01-07-2022 12:22-0400 Diastolic blood pressure 71 mm[Hg] Tonia DEVRIES [facility] 01-07-2022 12:22-0400 Heart rate 65 /min Toniapete DEVRIES [facility] 01-07-2022 12:22-0400 Respiratory rate 16 /min Tonia DEVRIES [facility] 01-07-2022 12:22-0400 Systolic blood pressure 124 mm[Hg] Tonia DEVRIES [facility] 09-28-2021 11:00-0400 Body height 182.88 cm Nahid Canchola Other [facility] Other 09-28-2021 11:00-0400 Body mass index (BMI) [Ratio] 25.49 kg/m2 Nahid Jesika Other [facility] Other 09-28-2021 11:00-0400 Body weight 85.28 kg Nahid Jesika Other [facility] Other 08-01-2021 14:00-0400 Body height 182.88 cm Nahid Jesika Other [facility] Other 08-01-2021 14:00-0400 Body mass index (BMI) [Ratio] 25.49 kg/m2 Nahid Jesika Other [facility] Other 08-01-2021 14:00-0400 Body weight 85.28 kg Nahid Jesika Other [facility] Other 07-18-2021 12:00-0400 Body height 182.88 cm Nahid Jesika Other [facility] Other 07-18-2021 12:00-0400 Body mass index (BMI) [Ratio] 26.04 kg/m2 Nahid Jesika Other [facility] Other 07-18-2021 12:00-0400 Body weight 87.09 kg Nahid Jesika Other [facility] Other 04-23-2021 15:45-0500 Body height 182.88 cm Nahid Jesika Other [facility] Other 04-23-2021 15:45-0500 Body mass index (BMI) [Ratio] 26.04 kg/m2 Nahid Jesika Other [facility] Other 04-23-2021 15:45-0500 Body weight 87.09 kg Nahid Jesika Other [facility] Other 03-12-2021 09:00-0500 Body height 182.88 cm Nahid Jesika Other [facility] Other 03-12-2021 09:00-0500 Body mass index (BMI) [Ratio] 26.12 kg/m2 Nahid Jesika Other [facility] Other 03-12-2021 09:00-0500 Body weight 87.36 kg Nahid Jesika Other [facility] Other 02-12-2021 14:00-0500 Body height 182.88 cm Nahid Jesika Other [facility] Other 02-12-2021 14:00-0500 Body mass index (BMI) [Ratio] 26.04 kg/m2 Nahid Jesika Other [facility] Other 02-12-2021 14:00-0500 Body weight 87.09 kg Nahid Jesika Other [facility] Other 01-10-2021 12:00-0400 Body height 182.88 cm Nahid Jesika Other [facility] Other 01-10-2021 12:00-0400 Body mass index (BMI) [Ratio] 26.15 kg/m2 Nahid Jesika Other [facility] Other 01-10-2021 12:00-0400 Body weight 87.45 kg Nahid Jesika Other [facility] Other Encounters Encounter Date Encounter Type Care Provider Facility Start: 09-30-2023 ambulatory Tonia Marcial ty:TYRONE Hernandez Start: 08-20-2023 End: 08-20-2023 ambulatory FLAQUITA SEE Not Available Start: 06-24-2023 End: 06-25-2023 ambulatory Tonia DEVRIES Facility:[facility] Start: 06-24-2023 End: 06-24-2023 Lab Drop off Tonia DEVRIES [facility] Start: 06-24-2023 End: 06-24-2023 Patient encounter procedure Tonia Christina BARB [facility] Start: 05-13-2023 End: 05-14-2023 ambulatory YAHAIRA LONG Facility:[facility] Start: 05-13-2023 End: 05-13-2023 Patient encounter procedure YAHAIRA LONG [facility] Start: 05-05-2023 End: 05-06-2023 ambulatory Tonia Christina BARB Facility:[facility] Start: 05-05-2023 End: 05-05-2023 Patient encounter procedure Tonia R BARB [facility] Start: 04-28-2023 End: 04-29-2023 ambulatory Tonia DEVRIES Facility:[facility] Start: 04-02-2023 End: 04-02-2023 ambulatory CATRACHO VUMEREDITHChristina Not Available Start: 03-28-2023 End: 03-28-2023 ambulatory Margaret Hardy Other [facility] Other Start: 03-28-2023 Office outpatient vi sit 15 minutes Margaret Hardy [facility] Start: 03-10-2023 End: 03-11-2023 ambulatory Tonia DEVRIES Facility:[facility] Start: 03-10-2023 End: 03-10-2023 Patient encounter procedure Tonia DEVRIES [facility] [employer] Start: 03-03-2023 End: 03-04-2023 ambulatory Toniapete DEVRIES Facility:[facility] [place] Start: 03-03-2023 End: 03-03-2023 Patient encounter procedure Toniapete DEVRIES [facility] [employer] Start: 02-26-2023 End: 02-27-2023 ambulatory Tonia Christina DEVRIES Facility:[facility] Start: 02-26-2023 End: 02-26-2023 Patient encounter procedure Tonia R DEVRIES [facility] [employer] Start: 02-20-2023 End: 02-21-2023 ambulatory Tonia Christina BARB Facility:[id number] Start: 01-17-2023 End: 01-18-2023 ambulatory Toniapete DEVRIES Facility:[facility] [place] Start: 01-17-2023 End: 01-17-2023 Patient encounter procedure Tonia R DEVRIES [facility] [employer] Start: 01-10-2023 ambulatory Tonia DEVRIES Facili ty:[facility] Start: 01-09-2023 End: 01-10-2023 ambulatory Tonia Christina DEVRIES Facility:CD:[id number] Start: 12-10-2022 End: 12-11-2022 ambulatory Tonia R DEVRIES Facility:[facility] Start: 12-10-2022 End: 12-11-2022 ambulatory Tonia R DEVRIES Facility:[facility] [place] Start: 12-10-2022 End: 12-10-2022 Patient encounter procedure Tonia DEVRIES [facility] [employer] Start: 12-09-2022 End: 12-10-2022 ambulatory Tonia DEVRIES Facility:[facility] Start: 12-09-2022 End: 12-09-2022 Lab Drop off Tonia R DEVRIES [facility] Start: 12-09-2022 End: 12-09-2022 Patient encounter procedure Tonia Vasquez DEVRIES [facility] Start: 10-22-2022 End: 10-23-2022 ambulatory YAHAIRA E ETHAN Facility:[facility] Start: 10-22-2022 End: 10-22-2022 Patient encounter procedure YAHAIRA E ETHAN [facility] Start: 10-14-2022 End: 10-15-2022 ambulatory Tonia DEVRIES Facility:[facility] Start: 10-08-2022 End: 10-09-2022 ambulatory YAHAIRA E ETHAN Facility:[facility] Start: 10-08-2022 End: 10-08-2022 Patient encounter procedure YAHAIRA E ETHAN [facility] Start: 09-30-2022 ambulatory Tonia DEVRIES Facili ty:[facility] [place] Start: 09-17-2022 End: 09-18-2022 ambulatory YAHAIRA E ETHAN Facility:[facility] [place] Start: 09-17-2022 End: 09-17-2022 Patient encounter procedure YAHAIRA E ETHAN [facility] Start: 09-10-2022 End: 09-11-2022 ambulatory YAHAIRA E ETHAN Facility:[facility] Start: 09-10-2022 End: 09-10-2022 Patient encounter procedure YAHAIRA E ETHAN [facility] Start: 09-03-2022 End: 09-04-2022 ambulatory YAHAIRA Lexx LONG Facility:[facility] Start: 09-03-2022 End: 09-03-2022 Patient encounter procedure YAHAIRA Lexx LONG [facility] Start: 08-27-2022 End: 08-28-2022 ambulatory YAHAIRA E ETHAN Facility:[facility] Start: 08-27-2022 End: 08-28-2022 ambulatory YAHAIRA E ETHAN Facility:[facility] Start: 08-27-2022 End: 08-27-2022 Lab Drop off YAHAIRA Lexx LONG [facility] Start: 08-27-2022 End: 08-27-2022 Patient encounter procedure YAHAIRA Lexx LONG [facility] Start: 07-26-2022 End: 07-26-2022 Patient encounter procedure Tonia DEVRIES [facility] Start: 07-20-2022 Encounter for preprocedural cardiovascular examination DR TONIA DEVRIES . [facility] Start: 07-20-2022 Encounter for preprocedural laboratory examination DR TONIA DEVRIES . [facility] Start: 07-18-2022 End: 07-18-[address] TONIA DEVRIES . Facility:[facility] Start: 07-17-2022 End: 07-18-[address] TONIA DEVRIES . Facility:[facility] Start: 07-17-2022 End: 07-18-2022 Encounter for preprocedural cardiovascular examination DR TONIA DEVRIES . Facility:[facility] Start: 07-16-2022 End: 07-16-2022 Patient encounter procedure Tonia DEVRIES [facility] Start: 06-27-2022 End: 06-28-[address] TONIA DEVRIES . Facility:[facility] Start: 06-10-2022 Office outpatient ne w 45 minutes Mickie Cooper [facility] Start: 06-10-2022 End: 06-10-2022 ambulatory Mickie Coopre Facility:[facility] Start: 06-10-2022 End: 06-10-2022 ambulatory MD Catracho Willis Work Phone: [facility] Work Phone: Start: 06-10-2022 End: 06-10-2022 Patient encounter procedure MD Catracho Willis Work Phone: [facility] Start: 03-29-2022 End: 03-29-2022 ambulatory Nahid Canchola Other [employer] [employer] Other Start: 03-29-2022 Patient encounter procedure Nahid Canchola [facility] Start: 03-21-2022 End: 03-21-2022 ambulatory Catracho Willis Facility:[facility] Start: 03-21-2022 End: 03-21-2022 ambulatory MD Catracho Willis Work Phone: [facility] Work Phone: Start: 03-21-2022 End: 03-21-2022 Patient encounter procedure MD Catracho Willis Work Phone: [facility] [address] Work Phone: Start: 01-07-2022 End: 01-07-2022 Patient encounter procedure Tonia DEVRIES [facility] Start: 12-05-2021 End: 12-06-[address] TONIA DEVRIES . Facility:[facility] Start: 12-03-2021 Office outpatient vi sit 15 minutes Nahid Canchola [facility] Start: 12-03-2021 End: 12-03-2021 ambulatory Catracho Willis [facility] [employer] Other Start: 12-03-2021 End: 12-03-2021 Patient encounter procedure MD Catracho Willis Work Phone: [facility] Start: 11-14-2021 End: 11-14-2021 ambulatory Nahid A Jesika Facility:[facility] Start: 11-14-2021 End: 11-14-2021 Patient encounter procedure MD Catracho Willis Work Phone: [facility] [address] Start: 11-01-2021 End: 11-01-2021 ambulatory Nahid Canchola Other [facility] [employer] Other Start: 11-01-2021 Telephone encounter Nahid Canchola [facility] Start: 10-26-2021 End: 10-26-2021 ambulatory Nahid A Jesika Facility:[facility] Start: 10-26-2021 End: 10-26-2021 Patient encounter procedure MD Catracho Willis Work Phone: [facility] Start: 10-04-2021 End: 11-15-2021 ambulatory NAHID JESIKA Facility:[facility] Start: 09-28-2021 End: 09-28-2021 ambulatory Nahid Canchola Other [facility] Other Start: 09-28-2021 Postop follow up vis it related to original px Nahid Jesika [facility] Start: 08-17-2021 End: 08-17-2021 ambulatory Nahid Jesika Other [facility] Other Start: 08-17-2021 Postop follow up vis it related to original px Nahid Jesika [facility] Start: 08-01-2021 End: 08-01-2021 ambulatory Nahid A Jesika [facility] [employer] [facility] Other Start: 08-01-2021 Postop follow up vis it related to original px Nahid Canchola [facility] Start: 07-31-2021 End: 07-31-2021 ambulatory Nahid Canchola Other [facility] [employer] Other Start: 07-31-2021 Telephone encounter Nahid MERRILL [facility] Start: 07-18-2021 End: 07-18-2021 ambulatory Nahid Canchola Other [facility] [employer] Other Start: 07-18-2021 Postop follow up vis it related to original px Nahid Canchola [facility] Start: 07-05-2021 End: 07-05-2021 ambulatory Catracho Naderer Facility:[facility] Start: 07-03-2021 End: 07-03-2021 ambulatory Catracho Kellimeredithr [facility] Other Start: 07-03-2021 Telephone encounter Nahid MERRILL [facility] Start: 07-02-2021 Encounter for other preprocedural examination Nahid Canchola [facility] Start: 07-02-2021 Office outpatient vi sit 25 minutes Nahid Canchola [facility] Start: 07-02-2021 End: 07-02-2021 ambulatory Catracho Rodriguezr [facility] Other Start: 06-11-2021 End: 06-11-2021 ambulatory Nahid Canchola Other [facility] Other Start: 06-11-2021 Telephone encounter Nahid MERRILL [facility] Start: 05-28-2021 End: 05-28-2021 ambulatory Nahid Canchola Other [facility] [employer] Other Start: 05-28-2021 Telephone encounter Nahid MERRILL [facility] Start: 04-23-2021 End: 04-23-2021 ambulatory Nahid Canchola Other [facility] [employer] Other Start: 04-23-2021 Office outpatient vi sit 15 minutes Nahid Jesika [facility] Start: 03-12-2021 End: 03-12-2021 ambulatory Nahiddarling Canchola Other [facility] [employer] Other Start: 03-12-2021 Office outpatient vi sit 15 minutes Nahid Jesika [facility] Start: 02-12-2021 End: 02-12-2021 ambulatory Nahid Canchola Other [employer] [employer] Other Start: 02-12-2021 Office outpatient vi sit 15 minutes Nahid Jesika [facility] Start: 02-05-2021 End: 02-05-2021 ambulatory Les Paul Other [facility] [employer] Other Start: 02-05-2021 Telephone encounter Les Paul [facility] Start: 01-10-2021 Office outpatient vi sit 25 minutes Nahid Jesika [facility] Start: 08-13-2018 Emergency department patient visit [facility] Procedures Date Procedure Procedure Detail Performing Clinician [...] above: Performed By: #### P SAD #### [facility] [address] [place] [address] Dr. Viktoria Nuñez Start: 06-10-2022 Plain X-ray of right shoulder MD Catracho Willis Work Phone: Start: 03-21-2022 MR lumbar spine wo con MD Catracho Willis Work Phone: Start: 12-05-[address] DENICE DEVRIES . Comment on above: Performed By: #### P SAD #### [facility] [address] [place] [address] Dr. Viktoria Nuñez Start: 12-03-2021 X-ray of [...] left femur MR femur LT wo con [facility] Start: 11-14-2021 XR pre/post mri xray XR pre/post mri xray [facility] Start: 11-14-2021 End: 11-14-2021 Patient encounter procedure Departed Clinical [facility] [address] Immunizations Immunization Date Immunization Notes Care Provider Carina david 05-13-2023 bacillus calmette-kely vaccine YAHAIRA LONG [facility] 05-05-2023 bacillus calmette-kely vaccine Tonia DEVRIES [facility] 04-28-2023 bacillus calmette-kely vaccine Tonia DEVRIES [facility] 10-22-2022 bacillus calmette-kely vaccine YAHAIRACHERYL LONG [facility] 10-14-2022 bacillus calmette-kely vaccine YAHAIRACHERYL LONG [facility] Comment on above: Early/Late Reason: E vijay/Late Reason: Other : Late documentation. Did not enter correct info 10-14-2022 bacillus calmette-kely vaccine YAHAIRA ETHAN [facility] 10-08-2022 bacillus calmette-kely vaccine YAHAIRA ETHAN [facility] 09-17-2022 bacillus calmette-kely vaccine YAHAIRA ETHAN [facility] 09-10-2022 bacillus calmette-kely vaccine YAHAIRA ETHAN [facility] 09-03-2022 bacillus calmette-kely vaccine YAHAIRA ETHAN [facility] 08-27-2022 bacillus calmette-kely vaccine YAHAIRA ETHAN [facility] 02-28-2021 COVID-19 mRNASue (Pfizer) MD Catracho Willis Work Phone: [facility] 01-10-2021 Kenalog -40 mg Nahid Canchola Other [facility] Other 09-01-2020 SARS-CoV-2 (COVID-19 ) mRNA BNT-162b2 vax YAHAIRA ETHAN [facility] [place] 08-28-2020 COVID-19 Sue Lux (Pfizer) MD Catracho Willis Work Phone: [facility] 08-11-2020 COVID-19 Sue Lux (Pfizer) MD Catracho Willis Work Phone: [facility] NEGATED: Highlighted row has not occurred!06-24-2023 influenza virus vaccine, unspecified formulation Tonia DEVRIES [facility] Payers Date Payer Category Payer Unknown [id number] 2021 Medicaid [id number] . [id number] 2021 Self-pay [id number] 2021 Unknown [id number] 2018 Unknown [id number] 1960 Medicare [id number] . [id number] 1954 Unknown [id number] 2.16.8 40.1.589727.3.579.2.173 1954 Unknown [id number] 2.16.84 0.1.087050.3.579.2.593 1954 Unknown [id number] 2.16.84 0.1.258771.3.579.2.593 1954 Unknown [id number] 2.16.84 0.1.027759.3.579.2.593 1954 Unknown [id number] 2.16.84 0.1.246465.3.579.2.593 1954 Unknown [id number] 2.16.84 0.1.706607.3.579.2.593 1954 Unknown [id number] 2.16.84 0.1.819697.3.579.2.593 1954 Unknown [id number] 2.16.8 40.1.398931.3.579.2.727 1954 Unknown [id number] 2.16.8 40.1.766673.3.579.2.727 1954 Unknown [id number] 2.16.8 40.1.862159.3.579.2.727 1954 Unknown [id number] 2.16.8 40.1.868165.3.579.2.727 1954 Unknown [id number] 2.16.8 40.1.732674.3.579.2.727 1954 Unknown [id number] 2.16.8 40.1.195782.3.579.2.727 1954 Unknown [id number] 2.16.8 40.1.934645.3.579.2.727 1954 Unknown [id number] 2.16.8 40.1.175993.3.579.2.727 1954 Unknown [id number] 2.16.8 40.1.851018.3.579.2.727 1954 Unknown [id number] 2.16.8 40.1.020433.3.579.2.727 1954 Unknown [id number] 2.16.8 40.1.992996.3.579.2.727 1954 Unknown [id number] 2.16.8 40.1.055541.3.579.2.727 1954 Unknown [id number] 2.16.8 40.1.155232.3.579.2.727 1954 Unknown [id number] 2.16.8 40.1.960683.3.579.2.727 1954 Unknown [id number] 2.16.8 40.1.550176.3.579.2.727 1954 Unknown [id number] 2.16.8 40.1.231628.3.579.2.72 1954 Unknown [id number] 2.16.8 40.1.168639.3.579.2.72 1954 Unknown [id number] 2.16.8 40.1.182808.3.579.2.72 1954 Unknown [id number] 2.16.8 40.1.393935.3.579.2.72 1954 Unknown [id number] 2.16.8 40.1.028209.3.579.2. 1954 Unknown [id number] 2.16.8 40.1.647216.3.579.2. 1954 Unknown [id number] 2.16.8 40.1.883465.3.579.2.72 1954 Unknown [id number] 2.16.8 40.1.141501.3.579.2. 1954 Unknown [id number] 2.16.8 40.1.013400.3.579.2.727 1954 Unknown [id number] 2.16.8 40.1.503789.3.579.2. 1954 Unknown [id number] 2.16.8 40.1.616548.3.579.2.72 1954 Unknown [id number] 2.16.8 40.1.486778.3.579.2.72 1954 Unknown [id number] 2.16.8 40.1.218976.3.579.2.727 1954 Unknown [id number] 2.16.84 0.1.079783.3.579.2.1259 1954 Unknown [id number] 2.16.84 0.1.455364.3.579.2.1259 Unknown [place] BC/BS [id number] Unknown [id number] 2.16.8 40.1.874728.3.579.2.531 Unknown [id number] 2.16.8 40.1.282100.3.579.2.531 Unknown [id number] 2.16.8 40.1.909819.3.579.2.531 Unknown [id number] 2.16.8 40.1.904928.3.579.2.531 Unknown [id number] 2.16.8 40.1.690818.3.579.2.531 Unknown [id number] 2.16.8 40.1.464331.3.579.2.531 Unknown [id number] 2.16.8 40.1.556476.3.579.2.531 Unknown [id number] 2.16.8 40.1.951630.3.579.2.531 Unknown [id number] 2.16.8 40.1.424205.3.579.2.531 Social History Date Type Detail Facility Sex Assigned At [facility] Start: 07-05-2021 End: 07-05-2021 Tobacco smoking status NHIS Smoker (finding) [facility] Start: 1955 Sex Assigned At Male [facility] Start: 09-05-2020 Tobacco smoking status Never s moked tobacco (finding) [facility] Start: 06-05-2022 End: 06-24-2023 Tobacco smoking status Heavy tobacco smoker (finding) [facility] Tobacco smoking status Never [facility] Medical Equipment Procedure Code Equipment Code Equipment Origin al Text Equipment Identifier Dates Arthroplasty, knee, total, minimally invasive Orthopaedic cement, non-medicated ([id number] [facility] Start: 07-05-2021 Arthroplasty, knee, total, minimally invasive Coated knee femur prosthesis ()[id number] FDA Start: 07-05-2021 Arthroplasty, knee, total, minimally invasive Tibial insert ()[id number] FDA Start: 07-05-2021 Arthroplasty, knee, total, minimally invasive Polyethylene patella prosthesis ()[id number] FDA Start: 07-05-2021 Arthroplasty, knee, total, minimally invasive Uncoated knee tibia prosthesis, metallic ()[id number] FDA Start: 07-05-2021 Functional Status Date Assessment Result Facility 06-24-2023 Functional Status N/A [facility] 05-13-2023 Functional Status N/A [facility] 05-05-2023 Functional Status N/A [facility] 03-03-2023 Functional Status N/A [facility] 01-17-2023 Functional Status N/A [facility] 12-10-2022 Functional Status N/A [facility] 10-22-2022 Functional Status N/A [facility] 10-08-2022 Functional Status N/A [facility] 09-17-2022 Functional Status N/A [facility] 09-10-2022 Functional Status N/A [facility] 09-03-2022 Functional Status N/A [facility] 08-27-2022 Functional Status N/A [facility] 07-26-2022 Functional Status N/A [facility] 01-07-2022 Functional Status N/A [facility] 06-28-2010 to 06-24-2023 Note Date [...] if anything looks unusual. Men with a qclohy-dsal-xwyhvu risk for skin cancer may want to see a home mortgage disclosure act specialist (diesel locomotive firer/fireman) for an annual body check. What are the benefits of screening? Cancer screening is done to look for cancer in the very early stages, before it spreads and becomes harder to treat and before you would start to notice symptoms. Finding cancer early improves the chances of successful treatment. It may save your life. Where to find more information [place] Cancer Society: www.cancer.org Centers for Disease Control and Prevention: www.cdc.gov National Cancer [place]: www.cancer.gov Contact a health care provider if: [...] provider. Document Revised: 08/06/2021 Document Reviewed: 02/04/2020 [employer] Patient Education 2022 [employer]. Follow Up Care 06/16/2023 14:01:03 With:BARB RAMIREZ, Tonia Vasquez, URL Address: [facility] [address] , [place] [address] [id number] When: Unknown [facility] 06-24-2023 Evaluation + Plan note Diagnostic Tests PendingUroVysion Fish and Urine Cyto ([facility]) 06/24/23 [facility] 05-13-2023 Hospital Discharge instructions Patient Education 05/13/2023 [...] cells. Follow these instructions at home: Take kjkz-zpt-tdhoimk and prescription medicines only as told by [...] is important. Where to find more information [place] Cancer Society (ACS): cancer.org National Cancer [place] (NCI): cancer.gov Contact a health care provider [...] provider. Document Revised: 02/18/2022 Document Reviewed: 02/18/2022 [employer] Patient Education 2022 [employer]. Follow Up Care 03/28/2023 10:45:13 With:[facility] Address: [address] [place] [address] Business (1) When: Unknown Comments:for procedure as scheduled [facility] 05-05-2023 Hospital Discharge instructions Patient [...] not available, use an alcohol based hand two way radio installer that contains at least 60% alcohol. Have [...] keep your urine pale yellow. Medicines Take vyzl-eui-tcsbfqg and prescription medicines only as told by [...] the type of cancer being treated. Take lcqb-vga-rfyqzjp and prescription medicines only as told by your health care provider. This information is not intended to replace advice given to you by your health care provider. Make sure you discuss any questions you have with your health care provider. Document Revised: 01/01/2022 Document Reviewed: 01/01/2022 [employer] Patient Education 2022 [employer]. Follow Up Care 03/28/2023 10:43:05 With:BARB RAMIREZ, Tonia Vasquez, URL Address: [facility] [address] , [place] [address]- [phone] When: Unknown Comments:BCG #3/3 on 05/13/23 [facility] 03-28-2023 Evaluation note Encounter Date [...] no improvement in 2 to 3 days [facility] Other 12-11-2023 Hospital Discharge instructions Patient Education [...] cells. Follow these instructions at home: Take bcgc-mzh-vycgsmy and prescription medicines only as told by [...] is important. Where to find more information [place] Cancer Society (ACS): cancer.org National Cancer [place] (NCI): cancer.gov Contact a health care provider [...] provider. Document Revised: 02/18/2022 Document Reviewed: 02/18/2022 [employer] Patient Education 2022 [employer]. Follow Up Care 01/17/2023 11:24:37 With:BARB RAMIREZ, Tonia Vasquez, URL Address: [facility] [address] , [place] [address]- When: Unknown Comments:After BCG treatments. [facility] 10-27-2023 Hospital Discharge instructions Patient [...] cells. Follow these instructions at home: Take bblj-djv-wjcaocb and prescription medicines only as told by [...] is important. Where to find more information [place] Cancer Society (ACS): cancer.org National Cancer [place] (NCI): cancer.gov Contact a health care provider [...] Document Reviewed: 02/18/2022 Elsevier Patient Education 2022 [employer]. Follow Up Care 12/12/2022 09:52:31 With:BARB RAMIREZ, Tonia Vasquez, URL Address: [address] [place] [address] [place] [address]- When: Unknown [facility] Hospital Discharge instructions Patient Education 12/10/2022 [...] cells. Follow these instructions at home: Take gfqc-bjq-fadcqyn and prescription medicines only as told by [...] is important. Where to find more information [place] Cancer [employer] (ACS): cancer.org National Cancer [place] (NCI): cancer.gov Contact a health care provider [...] provider. Document Revised: 02/18/2022 Document Reviewed: 02/18/2022 [employer] Patient Education 2022 [employer]. Follow Up Care 10/29/2022 16:25:46 With:BARB RAMIREZ, Tonia Vasquez, URL Address: [facility] [address], [place] [phone] When: Unknown Comments:piter PONCE [facility] 08-01-2023 Hospital Discharge instructions Patient Education 10/22/2022 [...] cells. Follow these instructions at home: Take scnu-ytf-pcmwjfj and prescription medicines only as told by [...] is important. Where to find more information [employer] [employer] (ACS): cancer.org National Cancer [place] (NCI): cancer.gov Contact a health care provider [...] provider. Document Revised: 02/18/2022 Document Reviewed: 02/18/2022 [employer] Patient Education 2022 [employer]. Follow Up Care 09/17/2022 13:12:31 With:BARB RAMIREZ, Tonia Vasquez, URL Address: [address] [place] [address]- When: Unknown [facility] 07-18-2023 Hospital Discharge instructions Patient [...] cells. Follow these instructions at home: Take xiav-fsj-sdemqyj and prescription medicines only as told by [...] is important. Where to find more information [employer] [employer] (ACS): cancer.org National Cancer [place] (NCI): cancer.gov Contact a health care provider [...] provider. Document Revised: 02/18/2022 Document Reviewed: 02/18/2022 [employer] Patient Education 2022 [employer]. Follow Up Care 08/01/2022 10:02:51 With:BARB RAMIREZ, Tonia Vasquez, URL Address: [address] [place], [place] [id number]- When: Unknown [facility] 06-27-2023 Hospital Discharge instructions Patient [...] cells. Follow these instructions at home: Take hakq-iea-usswijl and prescription medicines only as told by [...] is important. Where to find more information [employer] [employer] (ACS): cancer.org National Cancer [place] (NCI): cancer.gov Contact a health care provider [...] provider. Document Revised: 02/18/2022 Document Reviewed: 02/18/2022 [employer] Patient Education 2022 [employer]. Follow Up Care 08/01/2022 09:55:17 With:ETHAN VILLALTA, YAHAIRA Kilgore, URL Address: [address] [place] [place] [address] When:Within 1 Week(s) Comments:Piter SILVERIO #4 [facility] 06-20-2023 Hospital Discharge instructions Patient [...] cells. Follow these instructions at home: Take jwyt-akh-puenhlv and prescription medicines only as told by [...] is important. Where to find more information [employer] [employer] (ACS): cancer.org National Cancer [place] (NCI): cancer.gov Contact a health care provider [...] provider. Document Revised: 02/18/2022 Document Reviewed: 02/18/2022 [employer] Patient Education 2022 [employer] Follow Up Care 08/01/2022 09:51:36 With:[facility] Address: [address] [place] [place] [address] Business (1) When: Unknown Comments:for procedure as scheduled [facility] 06-13-2023 Hospital Discharge instructions Patient Education [...] cells. Follow these instructions at home: Take shbi-tbc-glzmncy and prescription medicines only as told by [...] is important. Where to find more information [place] [employer] (ACS): cancer.org National Cancer [place] (NCI): cancer.gov Contact a health care provider [...] provider. Document Revised: 02/18/2022 Document Reviewed: 02/18/2022 [employer] Patient Education 2022 [employer]. [facility] 06-06-2023 Hospital Discharge instructions Patient [...] Follow these instructions at home: Medicines Take kygy-bqo-ckgtzhc and prescription medicines only as told by [...] Document Reviewed: 10/20/2020 Elsevier Patient Education 2022 [employer]. [facility] 05-05-2023 Hospital Discharge instructions Patient [...] cells. Follow these instructions at home: Take ufzr-zcg-ulxpevw and prescription medicines only as told by [...] is important. Where to find more information [place] [employer] (ACS): cancer.org National Cancer [place] (NCI): cancer.gov Contact a health care provider [...] provider. Document Revised: 02/18/2022 Document Reviewed: 02/18/2022 [employer] Patient Education 2022 [employer]. Follow Up Care 07/16/2022 10:49:06 With:BARB RAMIREZ, Tonia Vasquez, URL Address: [address] [place] [address] When: Unknown [facility] 04-26-2023 NotePROCEDURE: XR CHEST 2 [...] Electronically authenticated by: NORMA SMALL Date: 2022-07-17 09:32[facility]04-25-2023 Evaluation + Plan noteExtracted from: Title:Urology Progress [...] Date:07/26/2022 08:30:00 AM Scheduled Provider:Tonia DEVRIES MD Location:[facility] Appointment Type:URO Office Visit Appointment Date:01/10/2023 10:45:00 AM Scheduled Provider:Tonia DEVRIES MD Location:[facility] Appointment Type:URO Office Visit Diagnostic Tests Pending * [facility] 07/16/[address]25-2023 Hospital Discharge instructions Patient Education 07/16/2022 [...] Address: [facility] [address] [place] [address]- Business (1) When: Unknown Comments:Office will call to schedule follow up [facility]03-20-2023 Evaluation note* Encounter Date Diagnosis Assessment Notes [...] Primary osteoarthritis, right shoulder (ICD-10 - M19.011) [facility] Other 01-06-2023 Evaluation note* Encounter Date Diagnosis [...] Dr. Cooper for evaluation and further treatment. [facility] Other 10-17-2022 Hospital Discharge instructions Patient Education [...] if anything looks unusual. Men with a tdknyy-hkju-rgcsas risk for skin cancer may want to see a home mortgage disclosure act specialist (diesel locomotive firer/fireman) for an annual body check. Where to find more information National Cancer [place]: https://www.cancer.gov/about-cancer/screening Centers for Disease Control and Prevention: https://www.cdc.gov/cancer/dcpc/prevention/screening.htm [place] Cancer Society: https://www.cancer.org/latest-news/4-chuggl-tctlstcps-jcsqd-ghh-yrg.html Contact a health care provider if: You [...] 12/05/2016 Document Revised: 11/27/2018 Document Reviewed: 12/05/2016 [employer] Patient Education [employer]. Follow Up Care 12/04/2020 12:10:49 With:BARB RAMIREZ, Tonia Vasquez, URL Address: [facility] [address] [place] [phone] When:01/07/2023 Comments:PSA [facility] 09-12-2022 Evaluation note* Encounter Date [...] left hamstring, initial encounter (ICD-10 - S76.312A) [facility] Other 08-11-2022 Evaluation note* Encounter Date Diagnosis Assessment Notes Treatment Notes Treatment Clinical Notes Oct, Status post total left knee replacement (ICD-10 - Z96.652) [facility] Other 07-08-2022 Evaluation note* Encounter Date Diagnosis [...] left hamstring, initial encounter (ICD-10 - S76.312A) [facility] Other 05-27-2022 Evaluation note* Encounter Date Diagnosis [...] use of Tylenol as needed for pain. [facility] Other 05-11-2022 Evaluation note* Encounter Date Diagnosis [...] time. Continue icing for his hamstring ecchymosis. [facility] Other 04-27-2022 Evaluation note* Encounter Date Diagnosis [...] and strengthening exercises. Call with questions/concerns . [facility] Other 04-11-2022 Evaluation note* Encounter Date Diagnosis [...] was discussed. I have advised against the oil heaterman use of narcotic pain medication. I have [...] M25.562) Jun, Pre-op exam (ICD-10 - Z01.818) [facility] Other 01-31-2022 Evaluation note* Encounter Date Diagnosis [...] pain of left knee (ICD-10 - M25.562) [facility] Other 12-20-2021 Evaluation note* Encounter Date Diagnosis [...] portal. He tolerated this well. Did discuss bqkp-wvh-ezbprns anti-inflammatory medications and handout has been given. [...] pain of left knee (ICD-10 - M25.562) [facility] Other 11-22-2021 Evaluation note* Encounter Date Diagnosis [...] pain of left knee (ICD-10 - M25.562) [facility] Other 10-20-2021 Evaluation note* Encounter Date Diagnosis [...] as documented in the electronic medical record. [facility] Other 04-07-2011 History general Narrative - Reported* Type Description Date Medical History knee pain Medical History Arthritis Medical History sleeping disorder Surgical History right total knee arthroplasty Surgical History bilateral shoulders [facility] Other 04-07-2011 History general Narrative - Reported* Type Description Date Medical History knee pain Medical History Arthritis Medical History sleeping disorder Medical History acid reflux Surgical History right partial knee arthroplasty 06/28/10 Surgical History bilateral shoulders [facility] Other 04-07-2011 History general Narrative - Reported* Type Description Date Medical History knee pain Medical History Arthritis Medical History sleeping disorder Medical History acid reflux Surgical History right partial knee arthroplasty 06/28/10 Surgical History bilateral shoulders Surgical History LT TKR 07/05/2021 [facility] Other 04-07-2011 History general Narrative - Reported* Type Description Date Medical History knee pain Medical History Arthritis Medical History sleeping disorder Medical History acid reflux Surgical History right partial knee arthroplasty 06/28/10 Surgical History bilateral shoulders Right Cuff Repair Surgical History LT TKR 07/05/2021 [facility] Other 04-07-2011 History general Narrative - Reported* Type Description Date Medical History knee pain Medical History Arthritis Medical History sleeping disorder Medical History acid reflux Surgical History right partial knee arthroplasty 06/28/10 Surgical History bilateral shoulders Right Cuff Repair Surgical History LT TKR 07/05/2021 Surgical History bladder cancer 2022 [facility] Other evaluation + Plan note Future Appointments Appointment Date:01/10/2023 10:45:00 AM Scheduled Provider:Tonia DEVRIES MD Location:[facility] Appointment Type:URO Office Visit Diagnostic Tests Pending * PSA Total 01/07/22 [facility] evaluation + Plan note Future Appointments Appointment Date:01/10/2023 10:45:00 AM Scheduled Provider:Tonia DEVRIES MD Location:[facility] Appointment Type:URO Office Visit [facility] evaluation + Plan note Future Appointments Appointment Date:09/03/2022 08:45:00 AM Scheduled Provider:YAHAIRA LONG PA-C Location:[facility] Appointment Type:URO Office Visit Appointment Date:09/10/2022 08:45:00 AM Scheduled Provider:YAHAIRA LONG PA-C Location:[facility] Appointment Type:URO Office Visit Appointment Date:09/17/2022 08:45:00 AM Scheduled Provider:YAHAIRA LONG PA-C [facility] Appoint[facility] Type:URO Office Visit Appointment Date:10/01/2022 08:45:00 AM Scheduled Provider:YAHAIRA LONG PA-C [facility] Appointment Type:URO Office Visit Appointment Date:10/08/2022 08:45:00 AM Scheduled Provider:YAHAIRA LONG PA-C Location:[facility] Appointment Type:URO Office Visit Appointment Date:01/10/2023 10:45:00 AM Scheduled Provider:Tonia DEVRIES MD [facility] Appointment Type:URO Office Visit [facility] evaluation + Plan note Future Appointments Appointment Date:09/03/2022 08:45:00 AM Scheduled Provider:YAHAIRA LONG PA-C [facility] Appointment Type:URO Office Visit Appointment Date:09/10/2022 08:45:00 AM Scheduled Provider:YAHAIRA LONG PA-C [facility] App[facility] Type:URO Office Visit Appointment Date:09/17/2022 08:45:00 AM Scheduled Provider:YAHAIRA LONG PA-C [facility] Appointment Type:URO Office Visit Appointment Date:10/01/2022 08:45:00 AM Scheduled Provider:YAHAIRA LONG PA-C [facility] Appointment Type:URO Office Visit Appointment Date:10/08/2022 08:45:00 AM Scheduled Provider:YAHAIRA LONG PA-C Location[facility] Appointment Type:URO Office Visit Appointment Date:01/10/2023 10:45:00 AM Scheduled Provider:Tonia DEVRIES MD [facility] Appointment Type:URO Office Visit Diagnostic Tests Pending * [facility]ments Appointment Date:09/10/2022 08:45:00 AM Scheduled Provider:YAHAIRA LONG PA-C [facility] Appointment Type:URO Office Visit Appointment Date:09/17/2022 08:45:00 AM Scheduled Provider:YAHAIRA LONG PA-C [facility] Appointment Type:URO Office Visit Appointment Date:10/01/2022 08:45:00 AM Scheduled Provider:YAHAIRA LONG PA-C Location[facility] Appointment Type:URO Office Visit Appointment Date:10/08/2022 08:45:00 AM Scheduled Provider:YAHAIRA LONG PA-C Location[facility] Appointment Type:URO Office Visit Appointment Date:01/10/2023 10:45:00 AM Scheduled Provider:Tonia DEVRIES MD Location[facility] Appointment Type:URO Office Visit [facility] evaluation + Plan note Future Appointments Appointment Date:09/17/2022 08:45:00 AM Scheduled Provider:YAHAIRA LONG PA-C Location:[facility] Appointment Type:URO Office Visit Appointment Date:10/01/2022 08:45:00 AM Scheduled Provider:YAHAIRA LONG PA-C Location[facility] Appointment Type:URO Office Visit Appointment Date:10/08/2022 08:45:00 AM Scheduled Provider:YAHAIRA LONG PA-C Location[facility] Appointment Type:URO Office Visit Appointment Date:01/10/2023 10:45:00 AM Scheduled Provider:Tonia DEVRIES MD Location:[facility] Appointment Type:URO Office Visit [facility] evaluation + Plan note Future Appointments Appointment Date:10/08/2022 08:45:00 AM Scheduled Provider:YAHAIRA LONG PA-C Location:[facility] Appointment Type:URO Office Visit Appointment Date:10/14/2022 09:30:00 AM Scheduled Provider:Tonia DEVRISE MD [facility] Appointment Type:URO Office Visit Appointment Date:10/22/2022 08:45:00 AM Scheduled Provider:YAHAIRA LONG PA-C Location[facility] Appointment Type:URO Office Visit Appointment Date:01/10/2023 10:45:00 AM Scheduled Provider:Tonia DEVRIES MD Location:[facility] Appointment Type:URO Office Visit [facility] evaluation + Plan note Future Appointments Appointment Date:10/14/2022 09:30:00 AM Scheduled Provider:Tonia DEVRIES MD Location:[facility] Appointment Type:URO Office Visit Appointment Date:10/22/2022 08:45:00 AM Scheduled Provider:YAHAIRA LONG PA-C Location:[facility] Appointment Type:URO Office Visit Appointment Date:01/10/2023 10:45:00 AM Scheduled Provider:Tonia DEVRIES MD Location[facility] Appointment Type:URO Office Visit [facility] evaluation + Plan note Future Appointments Appointment Date:12/10/2022 01:30:00 PM Scheduled Provider:Tonia DEVRIES MD Location:[facility] Appointment Type:URO Procedure 15 min Diagnostic Tests Pending * PSA [facility]ments Appointment Date:12/10/2022 01:30:00 PM Scheduled Provider:Tonia DEVRIES MD Location:[facility] Appointment Type:URO Procedure 15 min [facility] evaluation + Plan note Future Appointments Appointment Date:03/03/2023 09:00:00 AM Scheduled Provider:Tonia DEVRIES MD Location:[facility] Appointment Type:URO Office Visit [facility] evaluation + Plan note Future Appointments Appointment Date:05/13/2023 09:00:00 AM Scheduled Provider:YAHAIRA LONG PA-C Location:[facility] Appointment Type:URO Office Visit [facility] evaluation + Plan note Future Appointments Appointment Date:06/24/2023 01:15:00 PM Scheduled Provider:Tonia DEVRIES MD Location:[facility] Appointment Type:URO Procedure 15 min [facility] evaluation noteNo InformationNortHelen [facility] [employer] Other Evaluation noteNo assessment information available [facility] Work Phone: Hospital course Narrative No data available for this section [facility] Hospital Discharge instructions No data available for this section [facility] No data available for this section [facility] Summary Purpose Family History No [...] right should er (M25.511) Referral Organization [facility] Referring Provider First Name Nahid Referring Provider Last Name Jesika Referring Provider Specialty Orthopedic Surgery Referred Organization [facility] Referred Provider Mickie Cooper Referred Address [address] [place],[address] Referred Provider Specialty Orthopedic S urgery Referral [...] content) DATE CREATED AUTHOR 08/24/2018 [facility] DATE CREATED AUTHOR AUTHOR'S ORGANIZ ATION 06/25/2022 [facility] DATE CREATED AUTHOR AUTHOR'S ORGANIZ ATION 07/31/2022 [facility] DATE CREATED AUTHOR AUTHOR'S ORGANIZ ATION 08/11/2023 [facility] DATE CREATED AUTHOR AUTHOR'S ORGANIZ ATION 08/21/2023 [facility] EPIC REASON FOR VISIT [...] BE BASED ON THE PRIMARY CLINICAL RECORDS. [facility]. provides no warranty or guarantee of the accuracy or completeness of information in this document.
[2023-09-02 06:40] VITALS: BP 138/76; PULSE 59; TEMP 36.3; O2SAT 97; BMI 24.9
[2023-09-02] MEDS: LACTATED RINGER'S SOLUTION 1,000 ML 50 ML IV (07:21)
[2023-09-02 07:55] VITALS: BP 99/59; PULSE 51; O2SAT 95
[2023-09-02 08:15] VITALS: BP 97/66; PULSE 56; O2SAT 96
--- NOTE | 2023-09-02 08:16 | PC.NURSE ---
Incontinent of stool; assisted with getting cleaned up
--- NOTE | 2023-09-02 08:35 | W.PM.PROCNOT ---
Date of procedure: 09/02/23 Pre-op diagnosis: diagnostic colonoscopy due to change in bowel habits and blood Post-op diagnosis: other (normal colonoscopy aside for moderate internal hemorrhoids ) Procedure: Previous colonoscopy: many years ago, pt unsure of year procedure: diagnostic colonoscopy The patient was given IV conscious sedation.? The patient's SPO2 remained above 90% throughout the procedure. The colonoscope was inserted per rectum and advanced under direct vision to the cecum without difficulty.? The prep was good.? Findings: Terminal ileum os: normal Cecum/Ascending colon: normal Transverse colon: normal Descending/Sigmoid colon: normal Rectum/Anus: examined in normal and retroflexed positions and was normal Withdrawal Time was (minutes): 10 The colon was decompressed and the scope was removed.? The patient tolerated the procedure well. Recommendations/Plan: 1.? Lifestyle and dietary modifications as discussed 2. F/U as needed 3.? Discussed with the family Anesthesia: MAC Surgeon: Juan Root Estimated blood loss (mL): 0 Pathology: none sent Condition: stable Disposition: PACU
== END 2023-09-02 08:33 | disposition home or self-care (01) ==
PROVIDERS: PCP Family Medicine; Visit Provider Surgery
PROC: (CPT 45378; principal; 2023-09-02 07:30)
DX: R19.4 Change in bowel habit (principal); K64.8 Other hemorrhoids; F17.210 Nicotine dependence, cigarettes, uncomplicated; Z96.659 Presence of unspecified artificial knee joint; N40.0 Benign prostatic hyperplasia without lower urinary tract symptoms; Z85.51 Personal history of malignant neoplasm of bladder; M19.90 Unspecified osteoarthritis, unspecified site
CPT/HCPCS: 45378; J2704

== ENCOUNTER 2023-12-19 14:12 | Outpatient (OUT) | payer MEDICARE, SELFPAY ==
--- OUTSIDE RECORDS SUMMARY | 2023-12-19 14:16 | XMS_ITS | CCD ---
Author Organization [facility] Care Team Providers Care Racehorse Trainer Name Role Phone CATRACHO WILLIS Primary Care UnavailJAMIE Collier Attending Unavailable Trish, Nahid Unavailable Les Paul Unavailable MD Catracho Willis Primary Care Provider [phone] DO Nahid Canchola Attending Provider CATRACHO WILLIS Primary Care Physician [phone] MD Catracho Willis Primary Care Provider DO Nahid Canchola A Attending Provider MD Catracho Willis Primary Care Provider DO Nahid Canchola A Attending Provider [phone] MD Mickie Cooper Attending Provider Mickie Cooper Unavailable Catracho Willis Primary Care Unavailable Trish, Nahid A Admitting Unavailable Trish, Nahid A Attending Unavailable Catracho Willis Primary Care Unavailable Trish, Nahid A Attending Unavailable Trish, Nahid A Admitting Unavailable Trish, Nahid A Attending Unavailable Catracho Willis Primary Care Unavailable Trish, Nahid A Admitting Unavailable Trish, Nahid A Attending Unavailable Catracho Willis Primary Care Unavailable Trish, Nahid A Admitting Unavailable Trish, Nahid A Attending Unavailable Catracho Willis Primary Care Unavailable Trish, Nahid A Admitting Unavailable Mickie Cooper Attending Unavailable Catracho Willis Primary Care Unavailable Mickie Cooper Admitting Unavailable Lazaro, Catracho Primary Care Unavailable Trish, Nahid A Attending Unavailable Trish, Nahid A Admitting Unavailable Catracho Willis Primary Care Unavailable Trish, Nahid A Admitting Unavailable Trish, Nahid A Attending Unavailable Kellierer, Catracho Primary Care Unavailable TrishNahid Admitting Unavailable TrishNahid A Attending Unavailable DEVRIES ., DR RANDALL Consulting Unavailable DEVRIES ., DR RANDALL Admitting Unavailable NADERER, DR CATRACHO Coronado Primary Care Unavailable DEVRIES ., DR RANDALL Attending Unavailable ZIEBER, DR CLARIBEL Vasquez Consulting Unavailable NADERER, DR CATRACHO Coronado Primary Care Unavailable ETHAN, YAHAIRA Admitting Unavailable ETHAN, YAHAIRA Attending Unavailable ETHNA, YAHAIRA Consulting Unavailable DEVRIES ., DR RANDALL [...] Unavailable DEVRIES ., DR RANDALL Admitting Unavailable SANTACRUZSINAN Consulting Unavailable NORMA SMALL Consulting Unavailable DEVRIES ., DR RANDALL Attending Unavailable DEVRIES ., DR RANDALL Admitting Unavailable DEVRIES ., DR RANDALL Consulting Unavailable NADERER, DR CATRACHO Coronado Primary Care Unavailable DAMEON II, MICKIE Consulting Unavailable FILUTZE, LASHONDA Consulting Unavailable Maragret Hardy Unavailable DEVRIES, Tonia R Attending Unavailable DEVRIES, [...] Tonia R Admitting Unavailable DEVRIES, Tonia R Admitting Unavailable DEVRIES, Tonia R Attending Unavailable DEVRIES, Tonia R Attending Unavailable DEVRIES, Tonia R Attending Unavailable DEVRIES, Tonia R Attending Unavailable DEVRIES, Tonia R Attending Unavailable DEVRIES, Tonia R Attending Unavailable DEVRIES, Tonia R Attending Unavailable DEVRIES, Tonia R Attending Unavailable ETHAN, YAHAIRA E Attending Unavailable ETHAN, YAHAIRA E Attending Unavailable ETHAN, YAHAIRA E Attending Unavailable NADERER, CATRACHO Attending Unavailable FLAQUITA SEE Attending Unavailable CATRACHO WILLIS Attending Unavailable Medications Current Medications Medication Drug [...] Daily, # 90 tab(s), Refills(s) 3, Pharmacy: [facility], 182, cm, 09/10/22 8:56:00 EDT, Height/Length Dosing, 85, kg, 09/10/22 8:56:00 EDT, Weight Dosing Start Date: 09/10/22 Status: Ordered Start: 04-05-2022 take 1 tablet by brian th once daily Myrbetriq 50 mg oral tablet, extended release 50 mg = 1 tab(s), Oral, Daily, # 30 tab(s), Refills(s) 11, Pharmacy: [facility], 182, cm, 01/07/22 12:37:00 [...] Not-Taking oxybutynin chloride 5 mg oral tablet (8 sources) Cholinergic Muscarinic Antagonist Start: 05-13-2023 End: 05-07-2024 take 1 tablet by mouth at bedtime oxybutynin 5 mg Tab 5 mg = 1 tab(s), Oral, Bedtime, X 30 day(s), # 30 tab(s), Refills(s) 11, Pharmacy: [facility], 182, cm, 05/13/23 9:11:00 [...] for 10 day(s), 20 tab(s), Refill(s) 0, [facility], 182, cm, 03/03/23 9:14:00 EST, Height/Length Dosing, 84, kg, 03/03/23 9:14:00 EST, Weight Dosing Start Date: 03/10/23 Stop Date: 03/20/23 Status: Ordered Start: 08-27-2022 End: 09-03-2022 take 1 tablet by mouth twice daily Bactrim D.S. 800 mg-160 mg Tab 1 tab(s), Oral, BID for 7 day(s), 14 tab(s), Refill(s) 0, [facility], 182, cm, 08/27/22 9:05:00 [...] procedure, # 6 tab(s), Refills(s) 0, Pharmacy: [facility], 182, cm, 10/22/22 9:11:00 EDT, Height/Length Dosing, 84, kg, 10/22/22 9:11:00 EDT,... Start Date: 11/05/22 Status: Ordered Start: 07-26-2022 Cipro 500 mg T ab 500 mg = 1 tab(s), Oral, As Directed, Pt to take 1 tab the day before procedure and the 2nd tab the day of procedure once completed., # 2 tab(s), Refills(s) 0, Pharmacy: [facility], 182, cm, 07/26/22 9:01:00 EDT, Height/Length Dosing, 82, k... Start Date: 07/26/22 Status: Ordered Start: 06-25-2022 take 1 tablet by brian th once daily Cipro 500 mg Tab 500 mg = 1 tab(s), Oral, Daily, Take 1 tablet the day before the procedure and 1 tablet after the procedure, # 2 tab(s), Refills(s) 0, Pharmacy: [facility], 182, cm, 06/05/22 11:46:00 [...] Jun, Not-Taking tadalafil 10 mg oral tablet (20 sources) Phosphodiesterase 5 Inhibitor Start: 02-17-2023 take 1-2 tablets by mouth every hour as needed tadalafil 10 mg Tab 10 mg = 1 tab(s), Oral, Daily, PRN for erectile dysfunction, Take 1-2 pills by mouth, 1 hour prior to sexual relations., # 30 tab(s), Refills(s) 3, Pharmacy: [facility], 182, cm, 01/17/23 10:30:00 [...] period., # 30 tab(s), Refills(s) 3, Pharmacy: [facility], 182, cm, 12/04/20 11:58:0... [...] Start: 07-02-2021 take 2 tablets by mo [facility] every eight hours Tylenol Extra Strength 500 [...] unspecified] Onset: 07-26-2022 Chronic Cancer of bladder (4 sources) History of malignant neoplasm of bladder; Translations: [Personal history of malignant neoplasm of bladder] Onset: 06-24-2023 Episodic Cancer; other and unspecified primary (7 sources) H/O: malignant neoplasm 06-24-2023 Episodic Diverticulosis [...] Onset: 07-30-2022 Episodic Other male genital disorders (5 sources) Male erectile dysfunction, unspecified; Translations: [Erectile [...] Name Value Interpretation Reference Range Facil ity Reminderson 11-21-2023 Reminders Reminders - From: Zee Briones To: EU - Recalls Devries; Sent: 11/21/2023 10:53:49 EDT Show up: 01/23/2024 10:53:00 EDT Subject: cysto/fish/cytol Due Date/Time: 02/16/2024 10:53:00 EST Reminder/Recall Patient due in Mar 2024 for 3 month cysto/fish/cytol (bt ck) [facility] Reminders Reminders - From: Zee Briones To: EU - Recalls Devries; Cc: Zee Briones; Sent: 05/13/2023 09:52:37 EST Show up: 08/23/2023 09:52:00 EDT Subject: cysto/fish/cytol Due Date/Time: 09/08/2023 09:52:00 EDT Reminder/Recall Patient is due in September 2023 for 3 month cysto/fish/cytol Patient sched for 09/30/23 in [place] office.LG Patient will be due in Dec 2023 for 3 mo cysto/fish./cytol (3 mo bt ck) Patient sched for 01/06/24 in [facility] office. Han bundy.LG Normal [facility] Urology Office/Clinic Noteon 11-20-2023 Urology Office/Clinic Note Urology Office/Clinic Note Chief Complaint BCG # 3 out of 3 half dose HPI Staff Pt here for BCG treatment #3 of 3. Dx: hx of bladder cancer Denies abdominal pain/ flank pain, denies hematuria, denies dysuria. History of Present Illness staff HPI reviewed and agree. Review of Systems PHQ Score Initial Depression Screen Score: 0 SCORE no fever, chills, malaise, myalgia. no rash/lesions. no chest pain, palpitations, or SOB. no abdominal pain, nausea, vomiting. no unilateral calf swelling, redness, pain Physical Exam Vitals & Measurements HR: 73(Peripheral) RR: 16 BP: 112/70 General: nontoxic, NAD Mouth: moist mucosa Lungs: [...] other bladder irritation symptoms are expected. Assessment/Plan PRW pt 1. Bladder cancer (C67.9: Malignant neoplasm of bladder, unspecified) Cytology atypical urothelial cells, positive FISH 07/16/22. CT 06/2022 negative for suspicious bladder findings. S/p TURBT w/ left stent placement 07/18/22. 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 S/p cysto, L stent removal 08/09/22. 6 BCGs done 10/2022. S/p cysto 12/10/22 [...] urothelial cytologic atypia, detrusor muscle is present Completed 3 BCGs 05/13/23. [1] Most recent Cysto/FISH/Cytol 09/30/23 - All neg. UA today shows trace-intact blood. Asx. Pt was given BCG #3 of 3 (half dose) wo complications today. Pt received 1/2 dose BCG today due to national shortage. EORTC 76190 trial showed no difference between 1/3 dose and full-dose BCG in patients with high-risk disease. Pt is aware of the reasoning and is amenable to proceed as discussed. -Schedule surveillance cysto for 12/2023 Follow-up With When Contact Information BARB RAMIREZ, Tonia Vasquez, URL [facility] [address], [place] [address] [phone] Additional Instructions: sched surveillance cysto 12/2023 Patient Education Chemotherapy Documentation recorded by the nolan Paul accurately reflects the services(s) I performed and decisions made by me. Authenticated by Yahaira Long PA-C on 11/20/2023 15:07:28. I, Lisset Paul, personally scribed for Yahaira Long PA-C on 11/20/2023 15:03:53. . Problem List/Past Medical History Ongoing Bladder cancer BPH (benign prostatic hyperplasia) Elevated PSA Family history of prostate cancer History of bladder cancer Impotence Kidney stone Nocturia Proteinuria Split urinary stream Urinary urgency Historical No qualifying data Procedure/Surgical History Flexible cystoscope (09/30/2023), Flexible cystoscope (09/30/2023), Cystoscopy (06/24/2023), TURBT - Transurethral resection of bladder tumor (02/20/2023), TURBT - Transurethral resection of bladder tumor (01/09/2023), Cystoscopy (12/10/2022), TURBT - Transurethral resection of bladder tumor (07/18/2022), Arthroplasty of knee (2021), Cystoscopy (10/15/2013), Transrectal biopsy of prostate using ultrasound (US) guidance, Transrectal biopsy of prostate using ultrasound (US) guidance. Medications oxybutynin 5 mg Tab, 5 mg= 1 tab(s), Oral, Bedtime, 11 refills tadalafil 10 mg Tab, 10 mg= 1 tab(s), Oral, Daily, PRN, 3 refills Allergies No Known Allergies Social History Tobacco 10 or more cigarettes (1/2 pack or more)/day in last 30 days Tobacco Use:. Never Smokeless Tobacco Use:. Cigarettes, Ready to change: No. Household tobacco concerns: No. Yes, 11/13/2023 Family History Prostate cancer: Father. Immunizations Vaccine Date Status Comments BCG 11/20/2023 Given BCG 11/13/2023 Given BCG 11/06/2023 Given influenza virus vaccine, inactivated - Not Given Postpone due to refusal BCG (more content not included)... Normal [facility] Comment on above: Result Comment: Elec tronically Signed By: YAHAIRA LONG PA-C\.br\Date and Time Signed: 11/20/23 15:07 EDT\.br\Electronically Co-Signed By: Lisset Paul\.br\Date and Time Co-Signed: 11/20/23 15:06 EDT Ambulatory Visit Summaryon 0 11-13-2023 Ambulatory Visit Summary Ambulatory Visit Summary DARIAN DUENAS :1955 Visit Date:11/13/2023 Ambulatory Visit Instructions Your Diagnosis History of bladder cancer Your Care Team Attending Physician - YAHAIRA LONG PA-C Primary Care Physician - CATRACHO WILLIS MD This Is Your Medications List Contact prescribing physician if questions or concerns oxybutynin (oxybutynin 5 mg Tab) tadalafil (tadalafil 10 mg Tab) Procedures Performed Flexible cystoscope (09/30/2023), Flexible cystoscope (09/30/2023), Cystoscopy (06/24/2023), TURBT - Transurethral resection of bladder tumor (02/20/2023), TURBT - Transurethral resection of bladder tumor (01/09/2023), Cystoscopy (12/10/2022), TURBT - Transurethral resection of bladder tumor (07/18/2022), Arthroplasty of knee (2021), Cystoscopy (10/15/2013), Transrectal biopsy of prostate using ultrasound (US) guidance, Transrectal biopsy of prostate using ultrasound (US) guidance. What to do next Scheduled Follow-Up Appointments 2023 2:20 PM EDT With: YAHAIRA LONG PA-C Where: [facility] [address] [place] [address] [place] [address]- You Need to Schedule the Following Appointments Follow Up with YAHAIRA LONG PA-C, URL When: Comments: BCG #3 of 3 in 1 week Where: [address] [place] [address] Medications What How Much When Instructions Unchanged oxybutynin (oxybutynin 5 mg Tab) 1 Tablets By Mouth At bedtime Duration: 30 Days Contact prescribing physician if questions or concerns Unchanged tadalafil (tadalafil 10 mg Tab) 1 Tablets By Mouth Every day as needed for for erectile dysfunction Take 1-2 pills by mouth, 1 hour prior to sexual relations. Contact prescribing physician if questions or concerns Medications and Immunizations Administered Given [place] BCG Live (for intravesical use), 25 mg, IntraVesical. For: History of bladder cancer BCG, IntraVesical Allergies No Known Allergies Problems Ongoing - [...] this test, you will need to collect (more content not included)... Normal [facility] Urology Office/Clinic Noteon 11-13-2023 Urology Office/Clinic Note Urology Office/Clinic Note HPI Staff 68 year old male here for #2 of 3 BCG half dose Previous DX: H/O bladder cancer S/p TURBT w/ left stent placement 07/18/22, cysto, L stent removal 08/09/22, cysto 12/10/22, cysto, TURBT 01/09/23, Cysto/TURBT 02/20/23 and Cysto 09/30/23 History of Present Illness Tests reviewed: reviewed UA I have reviewed the previous health record information and history for this patient from [facility] Estrada& Dr. Devries. I have reviewed and verified the staff HPI to be accurate for this encounter. Review of Systems No fever, chills, malaise, myalgia. No rash/lesions. No chest pain, palpitations, or SOB. No abdominal pain, nausea, vomiting. No unilateral calf swelling, redness, pain Physical Exam General: nontoxic, NAD Mouth: moist mucosa Lungs: [...] bladder irritation symptoms are expected. Assessment/Plan 1. History of bladder cancer (Z85.51: Personal history of malignant neoplasm of bladder) Cytology atypical urothelial cells, positive FISH 07/16/22. CT 06/2022 negative for suspicious bladder findings. S/p TURBT w/ left stent placement 07/18/22. 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 S/p cysto, L stent removal 08/09/22. 6 BCGs done 10/2022. S/p cysto 12/10/22 [...] urothelial cytologic atypia, detrusor muscle is present Completed 3 BCGs 05/13/23. Most recent Cysto/FISH/Cytol 06/24/23 - All neg. S/p Cysto 09/30/23 - negative for recurrence. FISH/Cytol 09/30/23 - negative. UA today negative for blood and infection. Pt received BCG #2 of 3 (half dose) IO today wo complications. Pt received 1/2 dose BCG today due to national shortage. EORTC 81454 trial showed no difference between 1/3 dose and full-dose BCG in patients with high-risk disease. Pt is aware of the reasoning and is amenable to proceed as discussed. -BCG #3 of 3 half dose in 1 week -Cysto in 3 mos, after BCG treatment Follow-up With When Contact Information ETHAN VILLALTA, YAHAIRA Hallman, URL [address] [place] [address] Additional Instructions: BCG #3 of 3 in 1 week Patient Education Cancer Screening for Men Documentation recorded by the nolan Greenwood accurately reflects the services(s) I performed and decisions made by me. Authenticated by Yahaira Long PA-C on 11/13/2023 15:04:58. I, Zheng Greenwood, personally scribed for Yahaira Long PA-C on 11/13/2023 14:47:12. . Problem List/Past Medical History Ongoing Bladder cancer BPH (benign prostatic hyperplasia) Elevated PSA Family history of prostate cancer History of bladder cancer Impotence Kidney stone Nocturia Proteinuria Split urinary stream Urinary urgency Historical No qualifying data Procedure/Surgical History Flexible cystoscope (09/30/2023), Flexible cystoscope (09/30/2023), Cystoscopy (06/24/2023), TURBT - Transurethral resection of bladder tumor (02/20/2023), TURBT - Transurethral resection of bladder tumor (01/09/2023), Cystoscopy (12/10/2022), TURBT - Transurethral resection of bladder tumor (07/18/2022), Arthroplasty of knee (2021), Cystoscopy (10/15/2013), Transrectal biopsy of prostate using ultrasound (US) guidance, Transrectal biopsy of prostate using ultrasound (US) guidance. Medications oxybutynin 5 mg Tab, 5 mg= 1 tab(s), Oral, Bedtime, 11 refills tadalafil 10 mg Tab, 10 mg= 1 tab(s), Oral, Daily, PRN, 3 refills Allergies No Known Allergies Social History Tobacco 10 or more cigarettes (1/2 pack or more)/day in last 30 days Tobacco Use:. Never Smokeless Tobacco Use:. Cigarettes, Ready to change: No. Household tobacco concerns: No. (more content not included)... Normal [facility] Comment on above: Result Comment: Elec tronically Signed By: YAHAIRA LONG PA-C\.br\Date and Time Signed: 11/13/23 15:05 EDT\.br\Electronically Co-Signed By: Zheng Greenwood\.br\Date and Time Co-Signed: 11/13/23 14:47 EDT Ambulatory Visit Summaryon 0 11-06-2023 Ambulatory Visit Summary Ambulatory Visit Summary DARIAN DUENAS :1955 Visit Date:11/06/2023 Ambulatory Visit Instructions Your Diagnosis History of bladder cancer Your Care Team Attending Physician - YAHAIRA LONG PA-C Primary Care Physician - LAZARO RAMIREZ, CATRACHO This Is Your Medications List Contact prescribing physician if questions or concerns oxybutynin (oxybutynin 5 mg Tab) tadalafil (tadalafil 10 mg Tab) Procedures Performed Flexible cystoscope (09/30/2023), Flexible cystoscope (09/30/2023), Cystoscopy (06/24/2023), TURBT - Transurethral resection of bladder tumor (02/20/2023), TURBT - Transurethral resection of bladder tumor (01/09/2023), Cystoscopy (12/10/2022), TURBT - Transurethral resection of bladder tumor (07/18/2022), Arthroplasty of knee (2021), Cystoscopy (10/15/2013), Transrectal biopsy of prostate using ultrasound (US) guidance, Transrectal biopsy of prostate using ultrasound (US) guidance. Discharge Vitals Temperature (Temporal Artery) 37 ?C Heart Rate (Peripheral) 72 Respiratory Rate 16 Blood Pressure 135/87 Height 180 cm Height 71 in Weight 84 kg Weight 184.8 lb BMI 25.93 What to do next Scheduled Follow-Up Appointments 2023 2:20 PM EDT With: YAHAIRA LONG PA-C Where: [facility] [address] [place] [address] [place] [address]- 2023 2:20 PM EDT With: YAHAIRA LONG PA-C Where: [facility] [address] [facility] [place] [address] [place] [address]- You Need to Schedule the Following Appointments Follow Up with YAHAIRA LONG PA-C, URL When: Comments: 1 week for BCG #2 of 3 half dose Where: [address] [place] [address] Medications What How Much When Instructions Unchanged oxybutynin (oxybutynin 5 mg Tab) 1 Tablets By Mouth At bedtime Duration: 30 Days Contact prescribing physician if questions or concerns Unchanged tadalafil (tadalafil 10 mg Tab) 1 Tablets By Mouth Every day as needed for for erectile dysfunction Take 1-2 pills by mouth, 1 hour prior to sexual relations. Contact prescribing physician if questions or concerns Medications and Immunizations Administered Given [place] BCG Live (for intravesical use), 25 mg, IntraVesical. For: History of bladder cancer BCG, IntraVesical Allergies No Known Allergies Problems Ongoing - [...] tests or procedures, such as: ? A cyst (more content not included)... Normal [facility] Urology Office/Clinic Noteon 11-06-2023 Urology Office/Clinic Note Urology Office/Clinic Note Chief Complaint BCG #1 of 3 Bladder cancer HPI Staff BCG #1 out of 3 half dose Dx: bladder cancer Dysuria: no Incomplete bladder emptying: no Hematuria: denies Frequency: denies Urgency: denies Nocturia: denies Stream: good steady Leaking: no Post void dripping: no Wearing pads/ Depends: no Urge incontinence: no Stress incontinence: no Incontinence without Sensory Awareness: no Abdominal pain: denies Flank pain: denies Sexual complaints: denies History of Present Illness Tests reviewed: reviewed [...] redness, pain Physical Exam Vitals & Measurements T: 37 ?C(Temporal Artery) HR: 72(Peripheral) RR: 16 BP: 135/87 HT: 71 in HT: 180 cm WT: 84 kg WT: 184.8 lb BMI: 25.93 General: nontoxic, NAD Mouth: moist mucosa Lungs: [...] bladder irritation symptoms are expected. Assessment/Plan 1. History of bladder cancer (Z85.51: Personal history of malignant neoplasm of bladder) Cytology atypical urothelial cells, positive FISH 07/16/22. CT 06/2022 negative for suspicious bladder findings. S/p TURBT w/ left stent placement 07/18/22. 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 S/p cysto, L stent removal 08/09/22. 6 BCGs done 10/2022. S/p cysto 12/10/22 [...] urothelial cytologic atypia, detrusor muscle is present Completed 3 BCGs 05/13/23. Most recent Cysto/FISH/Cytol 06/24/23 - All neg. S/p Cysto 09/30/23 - negative for recurrence. FISH/Cytol 09/30/23 - negative. UA today shows trace-intact blood, negative for nitrites and leuks. Asx. Pt received BCG #1 of 3 IO today wo complications. Pt received 1/2 dose BCG today due to national shortage. EORTC 87367 trial showed no difference between 1/3 dose and full-dose BCG in patients with high-risk disease. Pt is aware of the reasoning and is amenable to proceed as discussed. -BCG #2 of 3 half dose in 1 week -Cysto in 3 mos, after BCG treatment Follow-up With When Contact Information ETHAN VILLALTA, YAHAIRA Hallman, URL [address] [facility] [place] [address] Additional Instructions: 1 week for BCG #2 of 3 half dose Patient Education Bladder Cancer Documentation recorded by the nolan Greenwood accurately reflects the services(s) I performed and decisions made by me. Authenticated by Yahaira Long PA-C on 11/06/2023 14:53:40. I, Zheng Greenwood, personally scribed for Yahaira Long PA-C on 11/06/2023 14:51:58. . Problem List/Past Medical History Ongoing Bladder cancer BPH (benign prostatic hyperplasia) Elevated PSA Family history of prostate cancer History of bladder cancer Impotence Kidney stone Nocturia Proteinuria Split urinary stream Urinary urgency Historical No qualifying data Procedure/Surgical History Flexible cystoscope (09/30/2023), Flexible cystoscope (09/30/2023), Cystoscopy (06/24/2023), TURBT - Transurethral resection of bladder tumor (02/20/2023), TURBT - Transurethral resection of bladder tumor (01/09/2023), Cystoscopy (12/10/2022), TURBT - Transurethral resection of bladder tumor (07/18/2022), Arthroplasty of knee (2021), Cystoscopy (10/15/2013), Transrectal biopsy of prostate using ultrasound (US) zabrina (more content not included)... Normal [facility] Comment on above: Result Comment: Elec tronically Signed By: YAHAIRA LONG PA-C\.br\Date and Time Signed: 11/06/23 14:53 EDT\.br\Electronically Co-Signed By: Zheng Greenwood\.br\Date and Time Co-Signed: 11/06/23 14:52 EDT [facility] Fish and Urine Cyt o ([facility])on 10-06-2023 UVFISH & UC Diagnosis Info Invalid Interpretation Code [facility] Comment on above: Result Comment: A:Ur ine,Bladder Wash:Bladder Wash Diagnosis Summary - Inadequate cellularity for evaluation. Diagnosis Summary - The [facility] FISH study detected normal copy numbers for chromosomes 3, 7, 17, and 9p21. 92 cells were analyzed in this evaluation. No [...] Abnormal cells aneploid events: Total cells analyzed: 92 Hematuria: Gross Description Site ID:A color Yellow fixative Alcohol Received 110 mls of clear yellow fluid with the patient's name and, Bladder Wash on the vial. Electronically signed by : on: 10/06/2023 17:48:05 Performed By: #### 1 [id number] #### [facility] [facility] [address] [place] [id number] Ambulatory Visit Summaryon 0 09-30-2023 Ambulatory Visit Summary Ambulatory Visit Summary DARIAN DUENAS :1955 Visit Date:09/30/2023 Ambulatory Visit Instructions Your Diagnosis History of bladder cancer Elevated PSA Nocturia Impotence Your Care Team Attending Physician - Tonia DEVRIES MD Primary Care Physician - CATRACHO WILLIS MD This Is Your Medications List oxybutynin (oxybutynin 5 mg Tab) tadalafil (tadalafil 10 mg Tab) [Image Removed: STOP]Stop taking these medications ciprofloxacin (Cipro 500 mg Tab) Procedures Performed Flexible cystoscope (09/30/2023), Flexible cystoscope (09/30/2023), Cystoscopy (06/24/2023), TURBT - Transurethral resection of bladder tumor (02/20/2023), TURBT - Transurethral resection of bladder tumor (01/09/2023), Cystoscopy (12/10/2022), TURBT - Transurethral resection of bladder tumor (07/18/2022), Arthroplasty of knee (2021), Cystoscopy (10/15/2013), Transrectal biopsy of prostate using ultrasound (US) guidance, Transrectal biopsy of prostate using ultrasound (US) guidance. Discharge Vitals Heart Rate (Peripheral) 62 Blood Pressure 127/74 What to do next You Need to Schedule the Following Appointments Follow Up with BARB RAMIREZ, Tonia Vasquez, URL When: Where: [facility] [address], [place] [phone] Medications What How Much When Instructions Unchanged oxybutynin (oxybutynin 5 mg Tab) 1 Tablets By Mouth At bedtime Duration: 30 Days Unchanged tadalafil (tadalafil 10 mg Tab) 1 Tablets By Mouth Every day as needed for for erectile dysfunction Take 1-2 pills by mouth, 1 hour prior to sexual relations. What How Much When Comments Stop Taking ciprofloxacin (Cipro 500 mg Tab) 1 Tablets By Mouth Every day Take 1 tablet the day before the procedure and 1 tablet after the procedure Medications and Immunizations Administered Given lidocaine Top 2% Gel w/Appl 11 mL, 11 mL, Topical. For: History of bladder cancer Allergies No Known Allergies Problems Ongoing [...] DNA test. This test looks for blood (more content not included)... Normal [facility] UroVysion Fish and Urine Cyt o ([facility])on 09-30-2023 [facility] Method of Extraction Bladder Wash Normal [facility] Comment on above: Performed By: #### 1 [id number] #### [facility] [address] [place] [address] [facility] Number of Jars 1 Invalid Interpretation Code [facility] Comment on above: Performed By: #### 1 [id number] #### [facility] [address] [place] [address] [facility] Specimen Bladder Wash Normal [facility] Comment on above: Performed By: #### 1 [id number] #### [facility] [address] [place] [address] [facility] Type of Service Global Normal [facility] Comment on above: Performed By: #### 1 [id number] #### [facility] [address] [place] [address] Urology Office/Clinic Noteon 09-30-2023 Urology Office/Clinic Note Urology Office/Clinic Note Chief Complaint cysto with fish/cytol HPI Staff Cysto with FISH/CYTOL. ABX taken History of Present Illness Tests reviewed: reviewed FISH/cytology I have reviewed the previous health record [...] Physical Exam Vitals & Measurements HR: 62(Peripheral) BP: 127/74 General Appearance: alert, no distress, well nourished, well developed male. Procedure Operative Information Anesthesia Type: Local Procedure: [...] Bladder: No tumors or stones, Trabeculated: Mild (1) The Ureteral orifices: Show efflux of clear [...] neoplasm. S/p cysto, L stent removal 08/09/22. 6 BCGs done 10/2022. S/p cysto 12/10/22 [...] urothelial cytologic atypia, detrusor muscle is present Completed 3 BCGs 05/13/23. Most recent Cysto/FISH/Cytol 06/24/23 - All neg. Pt had IO cysto to check for bladder tumor recurrence without complications today. Pt took prophylactic abx prior to procedure. Will send bladder wash specimen for FISH/cytol and call pt if positive. Cysto today was negative for recurrence. -Proceed with BCG #3 -Cysto in 3 mos, after BCG treatment 2. Elevated PSA (R97.20: Elevated prostate specific antigen [PSA]) Two neg. bx's in the past. +family history, father from prostate cancer. PSA 05/07/18 - 1.26 09/06/19 - 0.73 08/29/20 - 0.96 12/05/21 - 1.32 12/09/22 - 0.7 [1] 3. Nocturia (R35.1: Nocturia) Taking Oxybutynin 5mg qhs. [2] 4. Impotence (N52.9: Male erectile dysfunction, unspecified) Tadalafil 10mg prn. [3] Follow-up With When Contact Information BARB RAMIREZ, Tonia Vasquez, URL [facility] [address], [place] [phone] Additional Instructions: schedule 3 BCGs, cyst in 3 mos Patient Education Cancer Screening for Men I, Lisset Paul, personally scribed for Dr. Devries on 09/30/2023 14:13:09. . Documentation recorded by the scribe, Lisset Paul, accurately reflects the services(s) I performed and decisions made by me. Authenticated by Dr. Devries on 09/30/2023 14:15:49. Problem List/Past Medical History Ongoing Bladder cancer BPH (benign prostatic hyperplasia) Elevated PSA Family history of prostate cancer History of bladder cancer Impotence Kidney stone Nocturia Proteinuria Split urinary stream Urinary urgency Historical No qualifying data Procedure/Surgical History Flexible cystoscope (09/30/2023), Flexible cystoscope (09/30/2023), Cystoscopy (06/24/2023), TURBT - Transurethral resection of bladder tumor (02/20/2023), TURBT - Transurethral resection of bladder tumor (01/09/2023), Cystoscopy (12/10/2022), TURBT - Transurethral resection of bladder tumor (07/18/2022), Arthroplasty of knee (more content not included)... Normal [facility] Comment on above: Result Comment: Elec tronically Signed By: Tonia DEVRIES MD\.br\Date and Time Signed: 09/30/23 14:15 EDT\.br\Electronically Co-Signed By: Lisset Paul\.br\Date and Time Co-Signed: 09/30/23 14:13 EDT UroVysion Fish and Urine Cyt o ([facility])on 06-30-2023 [facility] Diagnosis Info Invalid Interpretation Code [facility] Comment on above: Result Comment: A:Ur ine,Bladder [...] correlated with cytology and cystoscopy results.* CPT 12786, 23123 Microscopic Notes - Microscopic Notes - Abnormal cells 9p21 deletions: Abnormal cells aneploid events: Total cells analyzed: 93 Hematuria: Gross Description Site ID:A color Yellow fixative Alcohol Received 100 mls of clear yellow fluid with the patient's name and, Bladder Wash on the vial. Electronically signed by : on: 06/30/2023 12:01:35 Performed By: #### 1 [id number] #### [facility] [address] [place] [address] Consent for Procedure/Surger yon 06-25-2023 Consent for Procedure/Surgery [id number]# 1.00TIFF Normal [facility] Ambulatory Visit Summaryon 0 06-24-2023 Ambulatory Visit [...] Up with BARB RAMIREZ, ADAM Aranda When: Where: [facility] [address], [place] [phone] Medications What How Much When Instructions Unchanged [...] Prostate canc (more content not included)... Normal [facility] Patient Educationon 06-24-19 Patient Education Oncology Cancer [...] if anything looks unusual. Men with a tmseub-hevc-zoeeyn risk for skin cancer may want to see a automation controls specialist (power generation turbine room operator) for an annual body check. What are the benefits of screening? Cancer screening is done to look for cancer in the very early stages, before it spreads and becomes harder to treat and before you would start to notice symptoms. Finding cancer early improves the chances of successful treatment. It ma (more content not included)... Normal [facility] UroVysion Fish and Urine Cyt o ([facility])on 06-24-2023 [facility] Method of Extraction Bladder Wash Normal [facility] Comment on above: Performed By: #### 1 [id number] #### [facility] [address] [place] [address] [facility] Number of Jars 1 Invalid Interpretation Code [facility] Comment on above: Performed By: #### 1 [id number] #### [facility] [address] [place] [address] [facility] Specimen Bladder Wash Normal [facility] Comment on above: Performed By: #### 1 [id number] #### [facility] [address] [place] [address] [facility] Type of Service Technical Only Normal [facility] Comment on above: Performed By: #### 1 [id number] #### [facility] [address] [place] [address] Urology Office/Clinic Noteon 06-24-2023 Urology Office/Clinic Note [...] When Contact Information BARB RAMIREZ, Tonia Vasquez, [facility] [address], [place] [phone] Additional Instructions: 3 mos for cysto Patient Education Cancer Screening for Men I, Lisset Paul, personally scribed for Dr. Devries on 06/24/2023 13:23:26. . Documentation recorded by the scribeLisset, accurately [...] TURBT - Transurethra (more content not included)... Normal [facility] Comment on above: Result Comment: Elec tronically Signed By: Tonia DEVRIES MD\.br\Date and Time Signed: 06/24/23 13:25 EDT\.br\Electronically Co-Signed By: Lisset Paul\.br\Date and Time Co-Signed: 06/24/23 13:23 EDT Ambulatory Visit Summaryon 0 05-13-2023 Ambulatory Visit Summary DARIAN DUENAS :1955 Visit Date:05/13/2023 Ambulatory Visit Instructions Your Diagnosis Nocturia Urinary urgency Elevated PSA Bladder cancer Your Care Team Attending Physician - ETHAN VILLALTA, YAHAIRA Hallman Primary Care Physician - CATRACHO WILLIS MD [...] Follow-Up Appointments Friday 1:15 PM EDT With: BARB RAMIREZ, Tonia Vasquez Where: [facility] Patient Educationon 05-13-19 Patient Education [...] Follow these instructions at home: ? Take vgga-wmz-eqhbwgs and prescription medicines only as told by [...] important. Where to find more information ? [place] [employer] (ACS): cancer.org ? National Cancer Eaton (NCI): cancer.gov Contact a health care provider [...] have wi (more content not included)... Normal [facility] Urology Office/Clinic Noteon 05-13-2023 Urology Office/Clinic Note [...] E&M of Est. Patient Moderate 30-39 Min 40432 2. Urinary urgency (R39.15: Urgency of urination) [...] E&M of Est. Patient Moderate 30-39 Min 20828 Urnls Dip Stick Auto w/o Microscopy POC [id number] Follow-up With When Contact Information [facility] [address] [place] [address] Business (1) Additional Instructions: for [...] Social History Toba (more content not included)... [facility] Comment on above: Result Comment: Elec tronically Signed By: YAHAIRA LONG PA-C\.br\Date and Time Signed: 05/13/23 09:55 EST Ambulatory Visit Summaryon 0 05-05-2023 Ambulatory Visit Summary DARIAN DUENAS :1955 Visit Date:05/05/2023 Ambulatory Visit Instructions Your Diagnosis Bladder cancer Family history of prostate cancer Nocturia Impotence Your Care Team Attending Physician - BARB RAMIREZ, Tonia Vasquez Primary Care Physician - LAZARO RAMIREZ, CATRACHO This Is Your Medications List Contact prescribing [...] YAHAIRA LONG PA-C Where: [facility] Patient Educationon 05-05-19 24 Patient Education Oncology Chemotherapy Chemotherapy is a [...] not available, use an alcohol based hand rose grower that contains at least 60% alcohol. Have [...] long y (more content not included)... Normal [facility] Urology Office/Clinic Noteon 05-05-2023 Urology [...] [facility] [address], [place] [phone] Additional Instructions: BCG #3/3 on 05/13/23 Patient Education Chemotherapy I, Lisset Paul, personally scribed for Dr. Devries on 05/05/2023 09:36:49. . Documentation recorded by the scribe, Lisset [...] tumor (07/18/2022), (more content not included)... Normal [facility] Comment on above: Result Comment: Elec tronically [...] Tonia DEVRIES MD Where: [facility] Normal [address] [place] [address] [place] [address]- \.br\ You Need to Schedule the Following Appointments\.b r\ Follow Up with Tonia DEVRIES MD, URL When: \.br\ Comments:\.br\ f/u scheduled 05/05/23 for BCG #2/3\.br\ Where:\.br\ [facility] [address]\ [place] [address].br\ [id number]\.br\ Medications\.br \ What How Much When Instructions\.b r\ Unchanged mirabegron (Myrbetriq 50 mg oral tablet, extended release) 1 Tablets By Mouth Every day\.br\ Unchanged tadalafil (tadalafil 10 mg Tab) 1 Tablets By Mouth Every day as needed for for erectile dysfunction Take 1-2 pills by mouth, 1 hour prior to sexual relations. \.br\ Medications and Immunizations Administered\.b r\ Given\.br\ Rhonda [...] not available, use an alcohol based hand rose grower that contains at least 60% alcohol. Have [...] flush.\.br\ ? \.br\ Wash your hands lindy [facility] Patient Educationon 04-28-19 Patient Education Oncology Chemotherapy [...] not available, use an alcohol based hand rose grower that contains at least 60% alcohol. Have [...] long y (more content not included)... Normal [facility] Urology Office/Clinic Noteon 04-28-2023 Urology Office/Clinic Note [...] URL [facility] [address], [place] [phone] Additional Instructions: f/u scheduled 05/05/23 for BCG #2/3 Patient Education Chemotherapy I, Lisset Paul, personally scribed for Dr. Devries on 04/28/2023 09:16:46. . Documentation recorded by the scribe, Lisset [...] Cystoscopy ( (more content not included)... Normal [facility] Comment on above: Result Comment: Elec tronically Signed By: Tonia DEVRIES MD\.br\Date and Time Signed: 04/28/23 09:24 EST\.br\Electronically Co-Signed By: Lisset Paul\.br\Date and Time Co-Signed: 04/28/23 09:19 EST Ambulatory Visit Summaryon 0 04-10-2023 Ambulatory Visit Summary HENRIQUEDARIAN Maury :1955 Visit Date:03/03/2023 Ambulatory Visit Instructions Your Diagnosis Bladder cancer Elevated PSA Nocturia Split urinary stream Your Care Team Attending Physician - Tonia [...] Follow Up with BARB RAMIREZ, Tonia Vasquez, URL When: Comments: After BCG treatments. Where: [facility] [address] [place] [address]- Medications What How Much When Instructions Unchanged [...] bladder (cystect (more content not included)... Normal [facility] Pathology Noteon 03-31-2023 Pathology Note [id number] #1.00TIFF Normal [facility] COVID + FLU Quick Testingon 03-28-2023 SARS-CoV-2 (COVID-19) RNA VIC+probe Ql (Unsp spec) Positive [facility] Today[employer]ickets Other COVID + FLU Quick Testing Negative [employer] [facility] [employer] Other Lab Reportson 03-18-2023 Lab Reports [id number] #1.00TIFF Normal [facility] Pathology Noteon 03-18-2023 Pathology Note [id number] #1.00TIFF Normal [facility] C Urineon 03-12-2023 Bacteria identified Cx Nom [...] Locations R1: This test [facility] performed at: [facility], [address] [place] [address], [address] , , [facility] Comment on above: Performed By: #### 2 [id number] ####[address] [place] [address] Coding Queryon 03-10-2023 Coding Query - From: Cortney Taylor M.A. To: [facility] - Pending Results; Sent: 03/10/2023 12:12:51 EST Subject: C&S Due Date/Time: 03/12/2023 12:12:00 EST Caller Name: DARIAN DUENAS; Caller Number: Carmen , Vickie C[place]S [place] [facility] [place] Normal [facility] Pathology Noteon 03-04-2023 Pathology Note [id number] #1.00TIFF Normal [facility] Patient Educationon 03-03-20 Patient Education Oncology Bladder Cancer Bladder cancer [...] Follow these instructions at home: ? Take tkxa-jft-terlack and prescription medicines only as told by [...] important. Where to find more information ? [place] [employer] Society (ACS): cancer.org ? National Cancer Eaton (NCI): cancer.gov Contact a health care provider [...] not included)... Normal [facility] Urology Office/Clinic Noteon 03-03-2023 Urology [...] PO TURBT. Follow-up With When Contact Information Tonia DEVRIES MD, URL [facility] [address] [place] [address]- Additional Instructions: After BCG treatments. Patient Education [...] extended releas (more content not included)... Normal [facility] Comment on above: Result Comment: Elec tronically Signed By: Tonia DEVRIES MD\.br\Date and Time Signed: 03/03/23 10:12 EST\.br\Electronically Co-Signed By: Adrienne Mojica\.br\Date and Time Co-Signed: 03/03/23 10:10 EST Operative Reporton Operative Report [id number] #1.00TIFF Normal [facility] Lab Reportson 02-17-2023 Lab Reports [id number] #1.00TIFF [facility] Lab Reports [id number]# 1.00TIFF [facility] Insurance Correspondenceon 1 03-31-2022 Insurance Correspondence [id number] #1.00TIFF [facility] Consent for Procedure/Surger yon 01-21-2023 Consent for Procedure/Surgery [id number] #1.00TIFF [facility] Formson 01-21-2023 Forms [id number] #1.00TIFF [facility] Ambulatory Visit Summaryon 1 Ambulatory Visit [...] RAMIREZ, Tonia Vasquez Where: [facility] Pathology Noteon 01-17-2023 Pathology Note [id number] #1.00TIFF Normal [facility] Patient Educationon 10-27-20 23 Patient Education Oncology Bladder Cancer Bladder [...] Follow these instructions at home: ? Take qywv-otm-huggmdn and prescription medicines only as told by [...] important. Where to find more information ? [place] [employer] Society (ACS): cancer.org ? National Cancer Eaton (NCI): cancer.gov Contact a health care provider [...] not included)... Normal [facility] Urology Office/Clinic Noteon 01-17-2023 Urology [...] slides to [facility] for second opinion assuming [facility] general pathology states muscle is not [...] Contact Information BARB RAMIREZ, Tonia Vasquez, URL [facility] [place] [address]- Additional Instructions: Sending path slides to [facility] [...] 10/22/2022 Giv (more content not included)... Normal [facility] Comment on above: Result Comment: Elec tronically Signed By: Tonia DEVRIES MD\.br\Date and Time Signed: 01/17/23 11:19 EDT\.br\Electronically Co-Signed By: Becka Kraft.cristobal\Date and Time Co-Signed: 01/17/23 11:17 EDT Lab Reportson 01-13-2023 Lab Reports [id number] #1.00TIFF [facility] Operative Reporton Operative Report [id number] #1.00TIFF [facility] Insurance Correspondenceon 1 Insurance Correspondence [id number] #1.00CD:127 [facility] Lab Reportson 12-18-2022 Lab Reports [id number] #1.00CD:127 Normal [facility] Lab Reportson 12-17-2022 Lab Reports [id number] #1.00CD:127 Normal [facility] UroVysion Fish and Urine Cyt o ([facility])on 12-16-2022 [facility] Diagnosis Info Invalid Interpretation Code [facility] Comment on above: Result Comment: A:Ur ine,Bladder [...] on: 12/16/2022 21:17:44 Performed By: #### 1 [id number] ####[facility] [id number] Consent for Procedure/Surger yon 12-13-2022 Consent for Procedure/Surgery [id number] #1.00CD:127 Normal [facility] PSA Totalon 12-12-2022 Prostate specific Ag [Mass/Vol] 0.7 ng/mL Normal 0.1-3.5 [facility] Comment on above: Result Comment: The concentration of PSA determined by different manufacturers can vary due to differences in assay methods and reagent specificity. Values obtained from different assay methods cannot be used interchangeably. The methodology used for this result was chemiluminescence using [employer]'s Access Hybritech PSA reagent. Performed By: #### 1 [id number] #### [facility] [address] [place] [address] Consent for Procedure/Surger yon 12-11-2022 Consent for Procedure/Surgery [id number] #1.00CD:127 Normal [facility] Ambulatory Visit Summaryon 0 12-10-2022 Ambulatory Visit Summary DARIAN DUENAS :1955 Visit Date:12/10/2022 Ambulatory Visit Instructions Your [...] Follow Up with BARB RAMIREZ, Tonia Vasquez, URL When: Comments: sched TURBT Where: [facility] [address], [place] [phone] Medications What How Much When Instructions Unchanged [...] Follow these instructions at home: ? Take roiz-fwr-ahujkrz and prescription medicines only as told by your health care provi (more content not included)... Normal [facility] Patient Educationon 12-11-19 Patient Education Oncology Bladder [...] Follow these instructions at home: ? Take nyiu-ogr-zkmfxne and prescription medicines only as told by [...] important. Where to find more information ? [place] [employer] (ACS): cancer.org ? National Cancer Eaton (NCI): cancer.gov Contact a health care provider [...] have wi (more content not included)... Normal [facility] UroVysion Fish and Urine Cyt o ([facility])on 12-10-2022 [facility] Method of Extraction Bladder Wash Normal [facility] Comment on above: Performed By: #### 1 [id number] ####[facility] [address] [place] [address] [facility] Number of Jars 1 Invalid Interpretation Code [facility] Comment on above: Performed By: #### 1 [id number] ####[facility] [address] [place] [address] [facility] Specimen Bladder Wash Normal [facility] Comment on above: Performed By: #### 1 [id number] ####[facility] [address] [place] [address] [facility] Type of Service Technical Only Normal [facility] Comment on above: Performed By: #### 1 [id number] ####[facility] [address] [place] [address] Urology Office/Clinic Noteon 12-10-2022 Urology Office/Clinic Note [...] General anesthesia. Follow-up With When Contact Information BARB RAMIREZ, Tonia Vasqeuz, URL [facility] [address], [place] [phone] Additional Instructions: sched TURBT Patient Education Bladder Cancer I, Lisset Paul, personally scribed for Dr. Devries on 12/10/2022 14:09:52. . Documentation recorded by the scribeLisset, accurately [...] Never Smokeless To (more content not included)... [facility] Comment on above: Result Comment: Elec tronically Signed By: Tonia DEVRIES MD\.br\Date and Time Signed: 12/10/22 14:17 EDT\.br\Electronically Co-Signed By: Lisset Paul\.br\Date and Time Co-Signed: 12/10/22 14:14 EDT Ambulatory Visit Summaryon 0 12-09-2022 Ambulatory Visit Summary DARIAN DUENAS :1955 Visit Date:12/09/2022 Ambulatory Visit Instructions Your [...] Tonia DEVRIES MD [facility] [facility] AUTO DIFFon 07-17-2022 BASO # 0.0 103/ul Normal 0.0-0.1 [facility] Comment on above: Performed By: #### C BC #### [facility] [address] [address] [address] Viktoria Nuñez Basophils/100 WBC (Bld) 0.3 % Normal 0.2-2.0 [facility] Comment on above: Performed By: #### C BC #### [facility] [address] [address] [address] Viktoria Nuñez EO # 0.0 103/ul Normal 0.0-0.7 [facility] Comment on above: Performed By: #### C BC #### [facility] [address] [place] [address] Dr. Viktoria Nuñez Eosinophils/100 WBC (Bld) 0.0 % Critically low 0.9-7.0 [facility] Comment on above: Performed By: #### C BC #### [facility] [address] [place] [address] Dr. Viktoria Nuñez Erythrocyte distribution width (RBC) [Ratio] 13.2 % Normal 11.0-15.0 [facility] Comment on above: Performed By: #### C BC #### [facility] [address] [place] [address] Dr. Viktoria Nuñez Hematocrit (Bld) [Volume fraction] 47.3 % Normal 42.0-54.0 [facility] Comment on above: Performed By: #### C BC #### [facility] [address] [place] [address] Dr. Viktoria Nuñez Hemoglobin (Bld) [Mass/Vol] 15.7 g/dL Normal 14.0-18.0 [facility] Comment on above: Performed By: #### C BC #### [facility] [address] [place] [address] Dr. Viktoria Nuñez IG # 0.03 10e3/ul Normal 0.00-0.03 [facility] Comment on above: Performed By: #### C BC #### [facility] [address] [place] [address] Dr. Viktoria Nuñez IG % 0.4 % Normal 0.0-0.5 [facility] Comment on above: Performed By: #### C BC #### [facility] [address] [place] [address] Dr. Viktoria Nuñez LYMPH # 1.4 103/ul Normal 1.2-3.8 [facility] Comment on above: Performed By: #### C BC #### [facility] [address] [place] [address] Dr. Viktoria Nuñez Lymphocytes/100 WBC (Bld) 18.6 % Critically low 20.5-60.0 [facility] Comment on above: Performed By: #### C BC #### [facility] [address] [place] [address] Dr. Viktoria Nuñez MANUAL DIFF REQ NO Normal [facility] Comment on above: Performed By: #### C BC #### [facility] [address] [place] [address] Dr. Viktoria Nuñez MCH (RBC) [Entitic mass] 30.7 pg Normal 25.9-34.0 [facility] Comment on above: Performed By: #### C BC #### [facility] [address] [place] [address] Dr. Viktoria Nuñez MCHC (RBC) [Mass/Vol] 33.2 g/dL Normal 29.9-35.2 [facility] Comment on above: Performed By: #### C BC #### [facility] [address] [place] [address] Dr. Viktoria Nuñez MCV (RBC) [Entitic vol] 92.4 fL Normal 80.0-94.0 [facility] Comment on above: Performed By: #### C BC #### [facility] [address] [place] [address] Dr. Viktoria Nuñez MONO # 0.6 103/ul Normal 0.3-0.8 [facility] Comment on above: Performed By: #### C BC #### [facility] [address] [place] [address] Dr. Viktoria Nuñez Monocytes/100 WBC (Bld) 7.6 % Normal 1.7-12.0 [facility] Comment on above: Performed By: #### C BC #### [facility] [address] [place] [address] Dr. Viktoria Nuñez NEUT # 5.4 103/ul Normal 1.4-6.5 [facility] Comment on above: Performed By: #### C BC #### [facility] [address] [place] [address] Dr. Viktoria Nuñez Neutrophils/100 WBC (Bld) 73.1 % Normal 43.0-75.0 [facility] Comment on above: Performed By: #### C BC #### [facility] [address] [place] [address] Dr. Viktoria Nuñez Platelet mean volume (Bld) [Entitic vol] 10.1 fL Normal 9.5-13.5 [facility] Comment on above: Performed By: #### C BC #### [facility] [address] [address] [address] Viktoria Nuñez PLT 235 103/ul Normal 150-450 [facility] Comment on above: Performed By: #### C BC #### [facility] [address] [address] [address] Viktoria Nuñez RBC 5.12 106/ul Normal 4.70-6.10 [facility] Comment on above: Performed By: #### C BC #### [facility] [address] [place] [address] Dr. Viktoria Nuñez WBC 7.4 103/ul Normal 4.0-11.0 [facility] Comment on above: Performed By: #### C BC #### [facility] [address] [place] [address] Dr. Viktoria Nuñez PROF CHEM 8 (BAS METB)on Anion gap [Moles/Vol] 12.2 mmol/L Normal [facility] Comment on above: Performed By: #### B MP #### [facility] [address] [place] [address] Dr. Viktoria Nuñez Calcium [Mass/Vol] 9.6 mg/dL Normal 8.5-10.1 [facility] Comment on above: Performed By: #### B MP #### [facility] [address] [place] [address] Dr. Viktoria Nuñez Chloride [Moles/Vol] 107 mmol/L Normal 98-107 [facility] Comment on above: Performed By: #### B MP #### [facility] [address] [place] [address] Dr. Viktoria Nuñez CO2 [Moles/Vol] 27.9 mmol/L Normal 21.0-32.0 [facility] Comment on above: Performed By: #### B MP #### [facility] [address] [address] [address] Viktoria Nuñez Creatinine [Mass/Vol] 1.15 mg/dL Normal 0.70-1.30 [facility] Comment on above: Performed By: #### B MP #### [facility] [address] [address] [address] Viktoria Nuñez EGFR-AF CONGOLESE >60 Normal >=60 [facility] Comment on above: Performed By: #### B MP #### [facility] [address] [address] [address] Viktoria Nuñez EGFR-NON AF CONGOLESE >60 Normal >=60 [facility] Comment on above: Performed By: #### B MP #### [facility] [address] [address] [address] Viktoria Nuñez Glucose [Mass/Vol] 110 mg/dL Critically high 74-106 [facility] Comment on above: Performed By: #### B MP #### [facility] [address] [address] [address] Viktoria Nuñez Potassium [Moles/Vol] 4.1 mmol/L Normal 3.5-5.1 [facility] Comment on above: Performed By: #### B MP #### [facility] [address] [place] [address] Dr. Viktoria Nuñez Sodium [Moles/Vol] 143 mmol/L Normal 136-145 [facility] Comment on above: Performed By: #### B MP #### [facility] [address] [address] [address] Viktoria Nuñez Urea nitrogen [Mass/Vol] 20.0 mg/dL Critically high 7.0-18.0 [facility] Comment on above: Performed By: #### B MP #### [facility] [address] [place] [address] Dr. Viktoria Nuñez Urea nitrogen/Creatinine [Mass ratio] 17.4 mg/mg Normal [facility] Comment on above: Performed By: #### B MP #### [facility] [address] [place] [address] Dr. Viktoria Nuñez PROTIMEon 07-17-2022 INR Coag (PPP) [Relative time] 1.03 {INR} Normal [facility] Comment on above: Performed By: #### P T, PTT #### [facility] [address] [place] [address] Dr. Viktoria Nuñez INR GUIDELINES SEE BELOW Normal [facility] Comment on above: Result Comment: RODDY RED INR: 2.0 - 3.0 CONDITIONS NOT LISTED BELOW 2.5 - 3.5 FOR PROSTHETIC HEART VALVE REPLACEMENT 2.5 - 3.5 RECURRENT THROMBOSIS Performed By: #### P T, PTT #### [facility] [address] [place] [address] Dr. Viktoria Nuñez PT Coag (PPP) [Time] 10.9 s Normal 9.0-11.6 [facility] Comment on above: Performed By: #### P T, PTT #### [facility] [address] [place] [address] Dr. Viktoria Nuñez PTTon 07-17-2022 aPTT Coag (Bld) [Time] 28.0 s Normal 22.3-36.2 [facility] Comment on above: Performed By: #### P T, PTT #### [facility] [address] [place] [address] Dr. Viktoria Nuñez CREATININEon 06-27-2022 Creatinine [Mass/Vol] 0.96 mg/dL Normal 0.70-1.30 [facility] Comment on above: Performed By: #### C CHRISTOPHER #### [facility] [address] [place] [address] Dr. Viktoria Nuñez EGFR-AF CONGOLESE >60 Normal >=60 [facility] Comment on above: Performed By: #### C CHRISTOPHER #### [facility] [address] [place] [address] Dr. Viktoria Nuñez EGFR-NON AF CONGOLESE >60 Normal >=60 [facility] Comment on above: Performed By: #### C CHRISTOPHER #### [facility] [address] [place] [address] [address] Nuñez CT ABD/PELV WO W [...] by: CLARIBEL COX Date: 2022-06-27 09:55 Normal [facility] XR shoulder RT min 2V*on XR shoulder RT min 2V* [facility] [place] [address] [place] [address] XRay Report Signed Patient: Darian Duenas MR#: [id number] 65 : 1955 Acct:[id number] Age/Sex: 67 / M ADM Date: 06/10/22 Loc: [facility] Room: Type: [facility] Attending Dr: Mickie Cooper MD Copies [...] Cristi Dwyer M.D.06/10/2022 8:07 PM Dictation Location: [place] [address] Transcribed By: [facility] 06/10/222006 Dictated By: Cristi Dwyer II, MD 06/10/222002 Signed By: 06/10/222006 [facility] MR lumbar spine wo [facility] MR lumbar spine wo [facility] [place] [address] MRI Report Signed Patient: Darian Duenas MR#: [id number] 65 : 1955 Acct:[id number] Age/Sex: 66 / M ADM Date: 03/21/22 Loc: [facility] Room: Type: [facility] Attending Dr: Nahid Canchola DO Copies [...] Apple Lentz M.D.03/21/2022 3:41 PM Dictation Location: [place] [address] Transcribed By: [facility] 03/21/22 1541 Dictated By: Apple Lentz MD 03/21/22 1531 Signed By: 03/21/22 1541 [facility] XR knee LT 2Von 12-03-2021 XR knee LT 2V [facility] [address] [place] [address] XRay Report Signed Patient: Darian Duenas MR#: [id number] 65 : 1955 Acct:[id number] Age/Sex: 66 / M ADM Date: 12/03/21 Loc: [facility] Room: Type: [facility] CLI Attending Dr: Nahid Canchola DO Copies [...] Haywood Jr., D.ODeedee12/03/2021 3:33 PM Dictation Location: [place] [address] Transcribed By: [facility] 12/03/21 1533 Dictated By: Naun Haywood Jr, DO 12/03/21 1533 Signed By: 12/03/21 1533 [facility] XR knee LT 2V [facility] [employer] Other XR knee LT 2V [facility] [employer] Other XR knee LT 2V [address] [place] [address] [employer] Other XR knee LT 2[place] [address] [facility] [employer] Other XR knee LT 2V XRay Report [place] [employer] Other XR knee LT 2V Signed [place] [employer] Other XR knee LT 2V Patient: Darian Duenas MR#: [id number] [facility] [employer] Other XR knee LT 2V 66 [facility] [employer] Other XR knee LT 2V : 1955 Acct:[id number] [employer] Other XR knee LT 2V Age/Sex: 66 / M ADM Date: 12/03/21 [employer] Other XR knee LT 2V Loc: [facility] Room: Type: [facility] [employer] Other XR knee LT 2V Attending Dr: Nahid Canchola DO [employer] Other XR knee LT 2V Copies to: Nahid Canchola DO [employer] Other XR knee LT 2V Ordering Provider: Nahid Canchola DO [employer] Other XR knee LT 2V Date of Service: 12/03/21 [employer] Other XR knee LT 2V XR/XR knee LT 2V: Status post total left knee replacement [employer] Other XR knee LT 2V LEFT KNEE - 2 views No rt [employer] Other XR knee LT 2V CLINICAL HISTORY: Follow-up TKA [employer] Other XR knee LT 2V COMPARISON: 07/05/2021 [employer] Other XR knee LT 2V FINDINGS: [employer] Other XR knee LT 2V No hardware complication. [employer] Other XR knee LT 2V XR/XR knee LT 2V [employer] Other XR knee LT 2V IMPRESSION: [employer] Other XR knee LT 2V NO HARDWARE COMPLICATION. NO ACUTE BONY PROCESS. [employer] Other XR knee LT 2V Impression dictated by: Naun Haywood Jr., D.ODeedee12/03/2021 3:33 PM [employer] Other XR knee LT 2V Dictation Location: [place] [address] [employer] Other XR knee LT 2V Transcribed By: PWS 12/03/21 [facility] [employer] Other XR knee LT 2V Dictated By: Naun Haywood Jr, DO 12/03/21 [facility]5 [employer] Other XR knee LT 2V Signed By: [employer] Other XR knee LT 2V 12/03/21 4351 [employer] Other XR pre/post mri xrayon 11-14 XR pre/post mri xray [facility] [place] [address] [place] [address] MRI Report Signed Patient: Darian Duenas MR#: [id number] 65 : 1955 Acct:[id number] Age/Sex: 66 / M ADM Date: 11/14/21 Loc: [facility] Room: Type: [facility] CL Attending Dr: Nahid Canchola DO Copies to: Nahid Canchola DO Ordering Provider: Nahid Canchola DO Date of Service: 11/14/21 MR/MR femur LT wo con: Status post total left knee replacement ([id number]) XR/XR pre/post mri xray: Z96.652 MR femur [...] Cristi Dwyer M.D.11/14/2021 3:52 PM Dictation Location: [place] [address] Transcribed By: [facility] 11/14/21 048 Dictated By: Cristi Dwyer II, MD 11/14/21 1548 Signed By: 11/14/21 1550 [facility] XR lumbar spine AP/LAT/FLX/E [employer]Ton 10-26-2021 XR lumbar spine AP/LAT/FLX/EXT [facility] [place] [address] [place] [address] XRay Report Signed Patient: Darian Duenas MR#: [id number] 65 : 1955 Acct:[id number] Age/Sex: 66 / M ADM Date: 10/26/21 Loc: [facility] Room: Type: [facility] Attending Dr: Nahid Canchola DO Copies [...] Haywood Jr., D.O.10/26/2021 2:45 PM Dictation Location: [place] [address] Transcribed By: [facility] 10/26/211444 Dictated By: Naun Haywood Jr, DO 10/26/21 144 Signed By: 10/26/21 144 Normal [facility] C-Reactive Proteinon 022 C-Reactive Protein 1.4 mg/dL High 0.0-1.0 [facility] Comment on above: Result Comment: PERF ORMED BY: [place] [address] PATHOLOGIST OIL DEVELOPER MARIELA OLVERA M.D. Performed By: #### C RP, CBC, ESR #### [address] Complete Blood Count Auto Di ffon 08-01-2021 Basophils (Bld) [#/Vol] 0.1 10*3/uL Normal 0.0-0.2 [facility] Comment on above: Performed By: #### C RP, CBC, ESR #### [address] Basophils/100 WBC (Bld) 0.8 % Normal . [facility] Comment on above: Performed By: #### C RP, CBC, ESR #### [address] Eosinophils (Bld) [#/Vol] 0.2 10*3/uL Normal 0.0-0.45 [facility] Comment on above: Performed By: #### C RP, CBC, ESR #### [facility] [address] [place] [address] [place] Eosinophils/100 WBC (Bld) 1.9 % Normal . [facility] Comment on above: Performed By: #### C RP, CBC, ESR #### [address] Erythrocyte distribution width (RBC) [Ratio] 13.8 % Normal 12.0-14.8 [facility] Comment on above: Performed By: #### C RP, CBC, ESR #### [facility] [address] Hematocrit (Bld) [Volume fraction] 39.2 % Normal 38.8-50.0 [facility] Comment on above: Performed By: #### C RP, CBC, ESR #### [address] Hemoglobin (Bld) [Mass/Vol] 13.3 g/dL Normal 13.0-17.0 [facility] Comment on above: Performed By: #### C RP, CBC, ESR #### [address] Lymphocytes (Bld) [#/Vol] 1.9 10*3/uL Normal 1.00-4.8 [facility] Comment on above: Performed By: #### C RP, CBC, ESR #### [address] Lymphocytes/100 WBC (Bld) 22.3 % Normal . [facility] Comment on above: Performed By: #### C RP, CBC, ESR #### [address] MCH (RBC) [Entitic mass] 31.3 pg Normal 27.5-35.2 [facility] Comment on above: Performed By: #### C RP, CBC, ESR #### [address] MCV (RBC) [Entitic vol] 92.2 fL Normal 83.5-101 [facility] Comment on above: Performed By: #### C RP, CBC, ESR #### [address] Mean Corpuscular HGB Conc 33.9 g/dL Normal 32.5-35.6 [facility] Comment on above: Performed By: #### C RP, CBC, ESR #### [address] Monocytes (Bld) [#/Vol] 0.7 10*3/uL Normal 0.0-0.8 [facility] Comment on above: Performed By: #### C RP, CBC, ESR #### [facility] [address] [place] [address] [place] Monocytes/100 WBC (Bld) 8.8 % Normal . [facility] Comment on above: Performed By: #### C RP, CBC, ESR #### [facility] [address] [place] [address] [place] Neutrophils (Bld) [#/Vol] 5.5 10*3/uL Normal 1.8-7.7 [facility] Comment on above: Performed By: #### C RP, CBC, ESR #### [facility] [address] Neutrophils/100 WBC (Bld) 66.2 % Normal . [facility] Comment on above: Performed By: #### C RP, CBC, ESR #### [facility] [address] [place] [address] [place] Nucleated RBC/100 WBC (Bld) [Ratio] 0.0 % Normal 0-0.5 [facility] Comment on above: Performed By: #### C RP, CBC, ESR #### [facility] [address] Platelet mean volume (Bld) [Entitic vol] 8.5 fL Normal 6.6-10.1 [facility] Comment on above: Performed By: #### C RP, CBC, ESR #### [facility] [address] [place] [address] [place] Platelets (Bld) [#/Vol] 380 10*3/uL Normal 150-450 [facility] Comment on above: Performed By: #### C RP, CBC, ESR #### [facility] [address] [place] [address] [place] RBC (Bld) [#/Vol] 4.25 10*6/uL Normal 3.90-5.60 [facility] Comment on above: Performed By: #### C RP, CBC, ESR #### [facility] [address] [place] [address] [place] WBC (Bld) [#/Vol] 8.3 10*3/uL Normal 4.5-11.0 [facility] Comment on above: Performed By: #### C RP, CBC, ESR #### [facility] [address] Erythrocyte Sedimentation Ra susan 08-01-2021 ESR (Bld) [Velocity] 39 mm/h High 0-19 [facility] Comment on above: Result Comment: PERF ORMED BY: [address] [place] [address] PATHOLOGIST OIL DEVELOPER MARIELA OLVERA M.D. Performed By: #### C RP, CBC, ESR #### [facility] [address] [place] 07-05-2021 L Specimen: Received: 07/05/21 Status: VALERY Hammond Num: [id number] Spec Type: Surgical Subm Dr: Nahid Canchola, Tissues: A Joint/Knee (L KNEE) Procedures: HE Stain, Gross/Micro L4, Decal Patient Age/Sex Location Account Attending Physician Darian Duenas 66/M OR [id number] Nahid Canchola DO SPEC NUM: [id number] RECD: 07/05/21 STATUS: VALERY HAMMOND NUM: [id number] MELISSA: 07/05/21 DR: Nahid Canchola DO ENTERED: 07/05/[address]: ALEXANDER TYPE: Surgical DEPT: S ORDERED: [...] reveals shine, focally sclerotic cut surfaces. A procurement representative section of bone is submitted following formalin fixation and decalcification . (JEANETTE/CHIO) Microscopic Description One glass slide with H E stained material has been examined. The microscopic findings support the above pathologic diagnosis. [id number], [address] Specimen: Received: 07/05/21 Status: VALERY Hammond Num: [id number] Spec Type: Surgical Subm Dr: Nahid Canchola DO Tissues: A Joint/Knee (L KNEE) Procedures: HE Stain, Gross/Micro L4, Decal Patient: Darian Duenas [id number] (Continued) Signed (signature on file) Mariela Olvera MD 07/10/211842 Normal [facility] XR knee LT 2Von 07-05-2021 XR knee LT 2V [address] [address] XRay Report Signed Patient: Darian Duenas MR#: [id number] 65 : 1955 Acct:[id number] Age/Sex: 66 / M ADM Date: 07/05/21 Loc: OR Room: Type: [facility] Attending Dr: Nahid Canchola DO Ordering Provider: [...] Apple Lentz M.D.07/05/2021 1:35 PM Dictation Location: [place] [address] Transcribed By: [facility] 07/05/21 1335 Dictated By: Apple Lentz MD 07/05/21 1333 Signed By: 07/05/21 1335 Normal [facility] SARS-CoV-2 (COVID-19) RNA VIC+probe Ql (Unsp spec) Negative Normal Negative [facility] Comment on above: Order Comment: 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 This test has not been FDA [...] is terminated or revoked sooner. PERFORMED BY: [address] [place] [address] PATHOLOGIST OIL DEVELOPER MARIELA OLVERA M.D. Performed By: #### C OVID 19 [facility] #### [address] Complete Blood Count Auto Di ffon 07-03-2021 Basophils (Bld) [#/Vol] 0.0 10*3/uL Normal 0.0-0.2 [facility] Comment on above: Result Comment: PERF ORMED BY: [place] [address] PATHOLOGIST OIL DEVELOPER MARIELA OLVERA M.D. Performed By: #### C MP, CBC #### [address] Basophils/100 WBC (Bld) 0.3 % Normal . [facility] Comment on above: Performed By: #### C MP, CBC #### [address] Eosinophils (Bld) [#/Vol] 0.2 10*3/uL Normal 0.0-0.45 [facility] Comment on above: Performed By: #### C MP, CBC #### [address] Eosinophils/100 WBC (Bld) 2.5 % Normal . [facility] Comment on above: Performed By: #### C MP, CBC #### [address] Erythrocyte distribution width (RBC) [Ratio] 13.5 % Normal 12.0-14.8 [facility] Comment on above: Performed By: #### C MP, CBC #### [address] Hematocrit (Bld) [Volume fraction] 42.9 % Normal 38.8-50.0 [facility] Comment on above: Performed By: #### C MP, CBC #### [facility] [address] Hemoglobin (Bld) [Mass/Vol] 14.6 g/dL Normal 13.0-17.0 [facility] Comment on above: Performed By: #### C MP, CBC #### [facility] [address] Lymphocytes (Bld) [#/Vol] 1.6 10*3/uL Normal 1.00-4.8 [facility] Comment on above: Performed By: #### C MP, CBC #### [facility] [address] Lymphocytes/100 WBC (Bld) 23.6 % Normal . [facility] Comment on above: Performed By: #### C MP, CBC #### [facility] [address] MCH (RBC) [Entitic mass] 32.1 pg Normal 27.5-35.2 [facility] Comment on above: Performed By: #### C MP, CBC #### [facility] [address] [place] [address] [place] MCV (RBC) [Entitic vol] 94.3 fL Normal 83.5-101 [facility] Comment on above: Performed By: #### C MP, CBC #### [facility] [address] Mean Corpuscular HGB Conc 34.0 g/dL Normal 32.5-35.6 [facility] Comment on above: Performed By: #### C MP, CBC #### [facility] [address] [place] [address] [place] Monocytes (Bld) [#/Vol] 0.5 10*3/uL Normal 0.0-0.8 [facility] Comment on above: Performed By: #### C MP, CBC #### [facility] [address] Monocytes/100 WBC (Bld) 7.8 % Normal . [facility] Comment on above: Performed By: #### C MP, CBC #### [facility] [address] [place] [address] [place] Neutrophils (Bld) [#/Vol] 4.3 10*3/uL Normal 1.8-7.7 [facility] Comment on above: Performed By: #### C MP, CBC #### [facility] [address] [place] [id number] [place] Neutrophils/100 WBC (Bld) 65.8 % Normal . [facility] Comment on above: Performed By: #### C MP, CBC #### [facility] [address] [place] [address] [place] Nucleated RBC/100 WBC (Bld) [Ratio] 0.1 % Normal 0-0.5 [facility] Comment on above: Performed By: #### C MP, CBC #### [facility] [address] Platelet mean volume (Bld) [Entitic vol] 9.1 fL Normal 6.6-10.1 [facility] Comment on above: Performed By: #### C MP, CBC #### [facility] [address] [place] [address] [place] Platelets (Bld) [#/Vol] 237 10*3/uL Normal 150-450 [facility] Comment on above: Performed By: #### C MP, CBC #### [facility] [address] [place] [id number] [place] RBC (Bld) [#/Vol] 4.55 10*6/uL Normal 3.90-5.60 [facility] Comment on above: Performed By: #### C MP, CBC #### [facility] [address] [place] [id number] [place] WBC (Bld) [#/Vol] 6.6 10*3/uL Normal 4.5-11.0 [facility] Comment on above: Performed By: #### C MP, CBC #### [facility] [address] [place] [address] [place] Comprehensive Metabolic Pane renny 07-03-2021 Albumin [Mass/Vol] 3.7 g/dL Normal 3.2-5.5 [facility] Comment on above: Performed By: #### C MP, CBC #### [facility] [address] [place] [address] Albumin/Globulin [Mass ratio] 1.4 {ratio} Normal [facility] Comment on above: Performed By: #### C MP, CBC #### [address] ALP [Catalytic activity/Vol] 54 U/L Normal 32-92 [facility] Comment on above: Result Comment: PERF ORMED BY: [place] [address] PATHOLOGIST OIL DEVELOPER MARIELA OLVERA M.D. Performed By: #### C MP, CBC #### [address] ALT [Catalytic activity/Vol] 20 U/L Normal 10-60 [facility] Comment on above: Performed By: #### C MP, CBC #### [address] AST [Catalytic activity/Vol] 21 U/L Normal 10-42 [facility] Comment on above: Performed By: #### C MP, CBC #### [address] Bilirubin [Mass/Vol] 0.6 mg/dL Normal 0.3-1.2 [facility] Comment on above: Performed By: #### C MP, CBC #### [place] [address] [place] Calcium [Mass/Vol] 9.6 mg/dL Normal 8.2-10.2 [facility] Comment on above: Performed By: #### C MP, CBC #### [place] [address] [place] Chloride [Moles/Vol] 105 mmol/L Normal 95-114 [facility] Comment on above: Performed By: #### C MP, CBC #### [place] [address] [place] CO2 [Moles/Vol] 26.1 mmol/L Normal 22.0-30.0 [facility] Comment on above: Performed By: #### C MP, CBC #### [address] Creatinine [Mass/Vol] 1.10 mg/dL Normal 0.64-1.27 [facility] Comment on above: Performed By: #### C MP, CBC #### [address] Estimated GFR ( Vani > 60 [facility] Comment on above: Result Comment: GFR estimated reference range: According to KDOQI guidelines, <60 ml/min/1.73m2 is sufficient to diagnose a patient with chronic kidney disease. Performed By: #### C MP, CBC #### [address] Estimated GFR (Non- Am > 60 Normal [facility] Comment on above: Performed By: #### C MP, CBC #### [address] Globulin (S) [Mass/Vol] 2.7 g/dL Normal [facility] Comment on above: Performed By: #### C MP, CBC #### [address] Glucose [Mass/Vol] 102 mg/dL High 70-100 [facility] Comment on above: Result Comment: [place] Glucose Reference Range is dependent on time and content of last meal. Glucose of more than 200 mg/dL in a nonstressed, ambulatory subject supports the diagnosis of Diabetes Mellitus. ADA recommended reference range Performed By: #### C MP, CBC #### [address] Potassium [Moles/Vol] 4.5 mmol/L Normal 3.5-5.1 [facility] Comment on above: Performed By: #### C MP, CBC #### [address] Protein [Mass/Vol] 6.4 g/dL Normal 6.1-7.9 [facility] Comment on above: Performed By: #### C MP, CBC #### [facility] [address] [id number] [place] Sodium [Moles/Vol] 140 mmol/L Normal 136-146 [facility] Comment on above: Performed By: #### C MP, CBC #### [facility] [address] [id number] [place] Urea nitrogen [Mass/Vol] 17 mg/dL Normal 9-23 [facility] Comment on above: Performed By: #### C MP, CBC #### [facility] [address] [id number] [facility] Vital Signs Date Time Vital Sign Value Performing Clinician Facility 11-20-2023 14:38-0400 Diastolic blood pressure 70 mm[Hg] YAHAIRA ETHAN [facility] 11-20-2023 14:38-0400 Heart rate 73 /min YAHAIRA ETHAN [facility] 11-20-2023 14:38-0400 Respiratory rate 16 /min YAHAIRA ETHAN [facility] 11-20-2023 14:38-0400 Systolic blood pressure 112 mm[Hg] YAHAIRA ETHAN [facility] 11-06-2023 14:34-0400 Blood Pressure Location YAHAIRA ETHAN [facility] 11-06-2023 14:34-0400 Body temperature 98.6 [degF] YAHAIRA ETHAN [facility] 11-06-2023 14:34-0400 Diastolic blood pressure 87 mm[Hg] YAHAIRA ETHAN [facility] 11-06-2023 14:34-0400 Heart rate 72 /min YAHAIRA LONG [facility] 11-06-2023 14:34-0400 Respiratory rate 16 /min YAHAIRA LONG [facility] 11-06-2023 14:34-0400 Systolic blood pressure 135 mm[Hg] YAHAIRA LONG [facility] 09-30-2023 13:51-0400 Blood Pressure Location Tonia DEVRIES [facility] 09-30-2023 13:51-0400 Diastolic blood pressure 74 mm[Hg] Tonia DEVRIES [facility] 09-30-2023 13:51-0400 Heart rate 62 /min Tonia DEVRIES [facility] 09-30-2023 13:51-0400 Systolic blood pressure 127 mm[Hg] Tonia DEVRIES [facility] 06-24-2023 13:09-0400 Body temperature 98.6 [degF] Tonia DEVRIES [facility] 06-24-2023 13:09-0400 Diastolic blood pressure 77 mm[Hg] Tonia DEVRIES [facility] 06-24-2023 13:09-0400 Heart rate 69 /min Tonia DEVRIES [facility] 06-24-2023 13:09-0400 Respiratory rate 16 /min Tonia DEVRIES [facility] 06-24-2023 13:09-0400 Systolic blood pressure 132 mm[Hg] Tonia DEVRIES [facility] 05-13-2023 09:10-0500 Blood Pressure Location YAHAIRA ETHAN [facility] 05-13-2023 09:10-0500 Diastolic blood pressure 74 mm[Hg] YAHAIRA ETHAN [facility] 05-13-2023 09:10-0500 Heart rate 68 /min YAHAIRA ETHAN [facility] 05-13-2023 09:10-0500 Respiratory rate 16 /min YAHAIRA ETHAN [facility] 05-13-2023 09:10-0500 Systolic blood pressure 128 mm[Hg] YAHAIRA ETHAN [facility] 05-05-2023 08:39-0500 Blood Pressure Location Tonia DEVRIES [facility] 05-05-2023 08:39-0500 Diastolic blood pressure 71 mm[Hg] Tonia DEVRIES [facility] 05-05-2023 08:39-0500 Heart rate 67 /min Tonia DEVRIES [facility] 05-05-2023 08:39-0500 Respiratory rate 16 /min Tonia DEVRIES [facility] 05-05-2023 08:39-0500 Systolic blood pressure 129 mm[Hg] Tonia DEVRIES [facility] 03-28-2023 18:00-0500 Body height 182.88 cm Margaret Friasmond Other [employer] Other 03-28-2023 18:00-0500 Body mass index (BMI) [Ratio] 25.71 kg/m2 Margaret Friasmond Other [employer] Other 03-28-2023 18:00-0500 Body temperature 99.6 [degF] Margaret Friasmond Other [employer] Other 03-28-2023 18:00-0500 Body weight 86 kg Margaret Friasmond Other [employer] Other 03-28-2023 18:00-0500 Diastolic blood pressure 72 mm[Hg] Margaret Hayley Other [employer] Other 03-28-2023 18:00-0500 Respiratory rate 18 /min Margaret Friasmond Other [employer] Other 03-28-2023 18:00-0500 SaO2% (BldA) [Mass fraction] 99 % Margaret Friasmond Other [employer] Other 03-28-2023 18:00-0500 Systolic blood pressure 133 mm[Hg] Margaret Hayley Other [employer] Other 03-03-2023 09:12-0500 Blood Pressure Location Tonia DEVRIES [facility] 03-03-2023 09:12-0500 Diastolic blood pressure 79 mm[Hg] Tonia DEVRIES [facility] 03-03-2023 09:12-0500 Heart rate 80 /min Tonia DEVRIES [facility] 03-03-2023 09:12-0500 Respiratory rate 16 /min Tonia DEVRIES [facility] 03-03-2023 09:12-0500 Systolic blood pressure 126 mm[Hg] Tonia DEVRIES [facility] 01-17-2023 10:25-0400 Blood Pressure Location Tonia DEVRIES [facility] 01-17-2023 10:25-0400 Diastolic blood pressure 66 mm[Hg] Tonia DEVRIES [facility] 01-17-2023 10:25-0400 Heart rate 62 /min Tonia DEVRIES [facility] 01-17-2023 10:25-0400 Respiratory rate 16 /min Tonia DEVRIES [facility] 01-17-2023 10:25-0400 Systolic blood pressure 121 mm[Hg] Tonia DEVRIES [facility] 12-10-2022 13:19-0400 Blood Pressure Location Tonia DEVRIES [facility] 12-10-2022 13:19-0400 Diastolic blood pressure 88 mm[Hg] Tonia DEVRIES [facility] 12-10-2022 13:19-0400 Heart rate 60 /min Tonia DEVRIES [facility] 12-10-2022 13:19-0400 Systolic blood pressure 137 mm[Hg] Tonia DEVRIES [facility] 10-22-2022 09:07-0400 Blood Pressure Location YAHAIRA ETHAN [facility] 10-22-2022 09:07-0400 Diastolic blood pressure 73 mm[Hg] YAHAIRA ETHAN [facility] 10-22-2022 09:07-0400 Heart rate 60 /min YAHAIRA ETHAN [facility] 10-22-2022 09:07-0400 Systolic blood pressure 118 mm[Hg] YAHAIRA ETHAN [facility] 10-08-2022 09:01-0400 Blood Pressure Location YAHAIRA ETHAN [facility] 10-08-2022 09:01-0400 Diastolic blood pressure 80 mm[Hg] YAHAIRA ETHAN [facility] 10-08-2022 09:01-0400 Heart rate 80 /min YAHAIRA ETHAN [facility] 10-08-2022 09:01-0400 Respiratory rate 16 /min YAHAIRA ETHAN [facility] 10-08-2022 09:01-0400 Systolic blood pressure 130 mm[Hg] YAHAIRA ETHAN [facility] 09-17-2022 09:11-0400 Blood Pressure Location YAHAIRA ETHAN [facility] 09-17-2022 09:11-0400 Diastolic blood pressure 74 mm[Hg] YAHAIRA ETHAN [facility] 09-17-2022 09:11-0400 Heart rate 80 /min YAHAIRA ETHAN [facility] 09-17-2022 09:11-0400 Respiratory rate 16 /min YAHAIRA ETHAN [facility] 09-17-2022 09:11-0400 Systolic blood pressure 128 mm[Hg] YAHAIRA ETHAN [facility] 09-10-2022 08:55-0400 Blood Pressure Location YAHAIRA ETHAN [facility] 09-10-2022 08:55-0400 Diastolic blood pressure 70 mm[Hg] YAHAIRA ETHAN [facility] 09-10-2022 08:55-0400 Heart rate 66 /min YAHAIRA ETHAN [facility] 09-10-2022 08:55-0400 Systolic blood pressure 127 mm[Hg] YAHAIRA ETHAN [facility] 09-03-2022 09:00-0400 Blood Pressure Location YAHAIRA ETHAN [facility] 09-03-2022 09:00-0400 Diastolic blood pressure 74 mm[Hg] YAHAIRA ETHAN [facility] 09-03-2022 09:00-0400 Heart rate 68 /min YAHAIRA ETHAN [facility] 09-03-2022 09:00-0400 Respiratory rate 16 /min YAHAIRA ETHAN [facility] 09-03-2022 09:00-0400 Systolic blood pressure 128 mm[Hg] YAHAIRA ETHAN [facility] 08-27-2022 09:03-0400 Blood Pressure Location YAHAIRA ETHAN [facility] 08-27-2022 09:03-0400 Diastolic blood pressure 76 mm[Hg] YAHAIRA ETHAN [facility] 08-27-2022 09:03-0400 Heart rate 80 /min YAHAIRA ETHAN [facility] 08-27-2022 09:03-0400 Respiratory rate 16 /min YAHAIRA ETHAN [facility] 08-27-2022 09:03-0400 Systolic blood pressure 132 mm[Hg] YAHAIRA ETHAN [facility] 07-26-2022 08:44-0400 Blood Pressure Location Tonia DEVRIES [facility] 07-26-2022 08:44-0400 Diastolic blood pressure 90 mm[Hg] Tonia DEVRIES [facility] 07-26-2022 08:44-0400 Heart rate 68 /min Tonia DEVRIES [facility] 07-26-2022 08:44-0400 Respiratory rate 16 /min Tonia DEVRIES [facility] 07-26-2022 08:44-0400 Systolic blood pressure 128 mm[Hg] Tonia DEVRIES [facility] 03-29-2022 10:45-0500 Body height 182.88 cm Nahid Trish Other [employer] Other 03-29-2022 10:45-0500 Body mass index (BMI) [Ratio] 25.09 kg/m2 Nahid Galavizley Other [employer] Other 03-29-2022 10:45-0500 Body weight 83.92 kg Nahid Trish Other [employer] Other 01-07-2022 12:22-0400 Blood Pressure Location Toniapete DEVRIES [facility] 01-07-2022 12:22-0400 Diastolic blood pressure 71 mm[Hg] Tonia DEVRIES [facility] 01-07-2022 12:22-0400 Heart rate 65 /min Tonia DEVRISE [facility] 01-07-2022 12:22-0400 Respiratory rate 16 /min Tonia DEVRIES [facility] 01-07-2022 12:22-0400 Systolic blood pressure 124 mm[Hg] Tonia DEVRIES [facility] 09-28-2021 11:00-0400 Body height 182.88 cm Nahid Canchola Other [employer] Other 09-28-2021 11:00-0400 Body mass index (BMI) [Ratio] 25.49 kg/m2 Nahid Trish Other [employer] Other 09-28-2021 11:00-0400 Body weight 85.28 kg Nahid Trish Other [employer] Other 08-01-2021 14:00-0400 Body height 182.88 cm Nahid Trish Other [employer] Other 08-01-2021 14:00-0400 Body mass index (BMI) [Ratio] 25.49 kg/m2 Nahid Trish Other [employer] Other 08-01-2021 14:00-0400 Body weight 85.28 kg Nahid Trish Other [employer] Other 07-18-2021 12:00-0400 Body height 182.88 cm Nahid Trish Other [employer] Other 07-18-2021 12:00-0400 Body mass index (BMI) [Ratio] 26.04 kg/m2 Nahid Trish Other [employer] Other 07-18-2021 12:00-0400 Body weight 87.09 kg Nahid Trish Other [employer] Other 04-23-2021 15:45-0500 Body height 182.88 cm Nahid Trish Other [employer] Other 04-23-2021 15:45-0500 Body mass index (BMI) [Ratio] 26.04 kg/m2 Nahid Trish Other [employer] Other 04-23-2021 15:45-0500 Body weight 87.09 kg Nahid Trish Other [employer] Other 03-12-2021 09:00-0500 Body height 182.88 cm Nahid Trish Other [employer] Other 03-12-2021 09:00-0500 Body mass index (BMI) [Ratio] 26.12 kg/m2 Nahid Trish Other [employer] Other 03-12-2021 09:00-0500 Body weight 87.36 kg Nahid Trish Other [employer] Other 02-12-2021 14:00-0500 Body height 182.88 cm Nahid Trish Other [employer] Other 02-12-2021 14:00-0500 Body mass index (BMI) [Ratio] 26.04 kg/m2 Nahid Trish Other [employer] Other 02-12-2021 14:00-0500 Body weight 87.09 kg Nahid Trish Other [employer] Other 01-10-2021 12:00-0400 Body height 182.88 cm Nahid Trish Other [employer] Other 01-10-2021 12:00-0400 Body mass index (BMI) [Ratio] 26.15 kg/m2 Nahid Trish Other [employer] Other 01-10-2021 12:00-0400 Body weight 87.45 kg Nahid Trish Other [employer] Other Encounters Encounter Date Encounter Type Care Provider Facility Start: 01-06-2024 ambulatory Tonia Marcial ty:[facility] Start: 12-16-2023 End: 12-16-2023 ambulatory CATRACHO WILLIS Not Available Start: 11-20-2023 End: 11-20-2023 ambulatory YAHAIRA Lexx ETHAN Facility:[facility] Start: 11-20-2023 End: 11-20-2023 Patient encounter procedure YAHAIRA Lexx LONG [facility] Start: 11-13-2023 End: 11-13-2023 ambulatory YAHAIRA Lexx ETHAN Facility:[facility] [place] Start: 11-13-2023 End: 11-13-2023 Patient encounter procedure YAHAIRA Lexx LONG [facility] Start: 11-06-2023 End: 11-06-2023 ambulatory YAHAIRA E ETHAN Facility:[facility] [place] Start: 11-06-2023 End: 11-06-2023 Patient encounter procedure YAHAIRA LONG [facility] Start: 09-30-2023 End: 09-30-2023 Lab Drop off Tonia DEVRIES [facility] Start: 09-30-2023 End: 09-30-2023 ambulatory T[place] DEVRIES [place] Start: 09-30-2023 End: 09-30-2023 Patient encounter procedure Tonia DEVRIES [facility] Start: 08-20-2023 End: 08-20-2023 ambulatory FLAQUITA SEE Not Available Start: 06-24-2023 End: 06-24-2023 Lab Drop off Tonia DEVRIES [facility] Start: 06-24-2023 End: 06-24-2023 ambulatory Tonia DEVRIES [facility] Start: 06-24-2023 End: 06-24-2023 Patient encounter procedure Tonia DEVRIES [facility] Start: 05-13-2023 End: 05-13-2023 ambulatory YAHAIRA LONG Facility:[facility] Start: 05-13-2023 End: 05-13-2023 Patient encounter procedure [facility] Start: 05-05-2023 End: 05-05-2023 ambulatory Tonia Christina BARB Facility:[facility] Start: 05-05-2023 End: 05-05-2023 Patient encounter procedure Tonia DEVRIES [facility] Start: 04-28-2023 End: 04-28-2023 [facility]ulatory [facility] Start: 04-02-2023 End: 04-02-2023 ambulatory CATRACHO WILLIS Not Available Start: 03-28-2023 End: 03-28-2023 ambulatory Margaret Hardy Other [employer] Other Start: 03-28-2023 Office outpatient vi sit 15 minutes Margaret Hardy [facility] Start: 03-10-2023 End: 03-10-2023 ambulatory Tonia DEVRIES [place] Start: 03-10-2023 End: 03-10-2023 Patient encounter procedure Tonia DEVRIES [facility] Start: 03-03-2023 End: 03-03-2023 ambulatory Tonia DEVRIES Facility:[facility] Start: 03-03-2023 End: 03-03-2023 Patient encounter procedure Tonia DEVRIES [facility] Start: 02-26-2023 End: 02-26-2023 ambulatory Tonia DEVRIES Facility: [facility] Start: 02-26-2023 End: 02-26-2023 Patient encounter procedure Tonia R BARB [facility] [place] Start: 02-20-2023 End: 02-20-2023 ambulatory Tonia DEVRIES Facility:[id number] Start: 01-17-2023 End: 01-17-2023 ambulatory Tonia R BARB Facility:[facility] Start: 01-17-2023 End: 01-17-2023 Patient encounter procedure Tonia R BARB [facility] Start: 01-10-2023 ambulatory Tonia DEVRIES Facili ty:[facility] Start: 01-09-2023 End: 01-09-2023 ambulatory Tonia R BARB Facility:CD:[id number] Start: 12-10-2022 End: 12-10-2022 ambulatory Toniapete DEVRIES [place] Start: 12-10-2022 End: 12-10-2022 ambulatory Tonia R BARB Facility:[facility] Start: 12-10-2022 End: 12-10-2022 Patient encounter procedure Tonia R BARB [facility] Start: 12-09-2022 End: 12-09-2022 Lab Drop off Tonia R BARB [facility] Start: 12-09-2022 End: 12-09-2022 ambulatory Tonia R BARB [place] Start: 12-09-2022 End: 12-09-2022 Patient encounter procedure Tonia R BARB [facility] Start: 10-22-2022 End: 10-22-2022 Patient encounter procedure YAHAIRA Hallman ETHAN [facility] [place] Start: 10-08-2022 End: 10-08-2022 Patient encounter procedure [facility]man [facility] Start: 09-17-2022 End: 09-17-2022 Patient encounter procedure [facility]ILSRY [facility] Start: 09-10-2022 End: 09-10-2022 Patient encounter procedure YAHAIRA NAILSRY [facility] [place] Start: 09-03-2022 End: 09-03-2022 Patient encounter procedure YAHAIRA Hallman ETHAN [facility] [place] Start: 08-27-2022 End: 08-27-2022 Lab Drop off YAHAIRA NAILSRY [facility] Start: 08-27-2022 End: 08-27-2022 Patient encounter procedure [facility]SRY [facility] Start: 07-26-2022 End: 07-26-2022 Patient encounter procedure Tonia DEVRIES [facility] [place] Start: 07-20-2022 Encounter for preprocedural cardiovascular examination DR TONIA DEVRIES . [facility] Start: 07-20-2022 Encounter for preprocedural laboratory examination DR TONIA DEVRIES . [facility] Start: 07-18-2022 End: 07-18-[address] TONIA DEVRIES . Facility:[facility] Start: 07-17-2022 End: 07-18-[address] TONIA DEVRIES . Facility:[facility] Start: 07-17-2022 End: 07-18-2022 Encounter for preprocedural cardiovascular examination DR TONIA DEVRIES . Facility:[facility] Start: 07-16-2022 End: 07-16-2022 Patient encounter procedure Tonia DEVRIES [facility] Start: 06-27-2022 End: 06-28-[address] TONIA DEVRIES . Facility:[facility] Start: 06-10-2022 Office outpatient ne w 45 minutes Mickie Cooper [facility] Start: 06-10-2022 End: 06-10-2022 ambulatory Mickie Cooper Facility:[facility] Start: 06-10-2022 End: 06-10-2022 ambulatory MD Catracho Willis Work Phone: [facility] Work Phone: Start: 06-10-2022 End: 06-10-2022 Patient encounter procedure MD Catracho Willis Work Phone: [facility] Start: 03-29-2022 End: 03-29-2022 ambulatory Nahid Canchola Other [facility] [employer] Other Start: 03-29-2022 Patient encounter procedure Nahid Cnachola [facility] Start: 03-21-2022 End: 03-21-2022 ambulatory Catracho Willis Facility:[facility] Start: 03-21-2022 End: 03-21-2022 ambulatory MD Catracho Willis Work Phone: [facility] Work Phone: Start: 03-21-2022 End: 03-21-2022 Patient encounter procedure MD Catracho Willis Work Phone: [facility] [address] Work Phone: Start: 01-07-2022 End: 01-07-2022 Patient encounter procedure Tonia DEVRIES [facility] Start: 12-05-2021 End: 12-06-[address] TONIA DEVRIES . Facility:[facility] Start: 12-03-2021 Office outpatient vi sit 15 minutes N[facility]id [facility] Start: 12-03-2021 End: 12-03-2021 ambulatory Catracho Willis [place] [employer] Other Start: 12-03-2021 End: 12-03-2021 Patient encounter procedure MD Catracho Willis Work Phone: [facility] Start: 11-14-2021 End: 11-14-2021 ambulatory Nahid Canchola Facility:[facility] Start: 11-14-2021 End: 11-14-2021 Patient encounter procedure MD Catracho Willis Work Phone: [facility] [address] Start: 11-01-2021 End: 11-01-2021 ambulatory Nahid Canchola Other [employer] Other Start: 11-01-2021 Telephone encounter Nahid MERRILL [facility] Start: 10-26-2021 End: 10-26-2021 ambulatory Nahid A Trish Facility:[facility] Start: 10-26-2021 End: 10-26-2021 Patient encounter procedure MD Catracho Willis Work Phone: [facility] Start: 10-04-2021 End: 11-15-2021 ambulatory NAHID CANCHOLA Facility: Start: 09-28-2021 End: 09-28-2021 ambulatory Nahid Canchola Other [employer] Other Start: 09-28-2021 Postop follow up vis it related to original px Nahid Canchola [facility] Start: 08-17-2021 End: 08-17-2021 ambulatory Nahid Trish Other [employer] Other Start: 08-17-2021 Postop follow up vis it related to original px aNhid Canchola [facility] Start: 08-01-2021 End: 08-01-2021 ambulatory Nahid Ivonne Canchola [employer] Other Start: 08-01-2021 Postop follow up vis it related to original px Nahid Canchola [facility] Start: 07-31-2021 End: 07-31-2021 ambulatory Nahid Canchola Other [facility] Other Start: 07-31-2021 Telephone encounter Nahid MERRILL [facility] Start: 07-18-2021 End: 07-18-2021 ambulatory Nahid Canchola Other [facility] Other Start: 07-18-2021 Postop follow up vis it related to original px Nahid Canchola [facility] Start: 07-05-2021 End: 07-05-2021 ambulatory Catracho Willis Facility:[facility] Start: 07-03-2021 End: 07-03-2021 ambulatory Catracho Rodriguezr [facility] Other Start: 07-03-2021 Telephone encounter Nahid Canchola FP [facility] Start: 07-02-2021 Encounter for other preprocedural examination Nahid Canchola [facility] Start: 07-02-2021 Office outpatient vi sit 25 minutes Nahid Canchola [facility] Start: 07-02-2021 End: 07-02-2021 ambulatory Catracho Naderechristina [facility] Other Start: 06-11-2021 End: 06-11-2021 ambulatory Nahid Galavizley Other [facility] Other Start: 06-11-2021 Telephone encounter aNhid Canchola GARFIELD [facility] Start: 05-28-2021 End: 05-28-2021 ambulatory Nahid Galavizley Other [facility] Other Start: 05-28-2021 Telephone encounter Nahid Canchola [facility] Start: 04-23-2021 End: 04-23-2021 ambulatory Nahid Trish Other [facility] Other Start: 04-23-2021 Office outpatient vi sit 15 minutes Nahid Trish [facility] Start: 03-12-2021 End: 03-12-2021 ambulatory Nahiddarling Canchola Other [facility] Other Start: 03-12-2021 Office outpatient vi sit 15 minutes Nahid Trish [facility] Start: 02-12-2021 End: 02-12-2021 ambulatory Nahid Trish Other [facility] Other Start: 02-12-2021 Office outpatient vi sit 15 minutes Nahid Trish [facility] Start: 02-05-2021 End: 02-05-2021 ambulatory Les Paul Other [facility] Other Start: 02-05-2021 Telephone encounter Les Paul [facility] Start: 01-10-2021 Office outpatient vi sit 25 minutes Nahid Canchola [facility] Start: 08-13-2018 Emergency department patient visit CATRACHO WILLIS [facility] Procedures Date Procedure Procedure Detail Performing Clinician Start: 09-30-2023 Flexible cystoscope (physical object) Tonia DEVRIES Start: 06-24-2023 Transurethral cystoscopy Tonia DEVRIES Start: 02-20-2023 Transurethral resect ion of bladder neoplasm Tonia DEVRIES Start: 01-09-2023 Transurethral resect ion of bladder neoplasm Tonia DEVRIES Start: 12-10-2022 Cystoscopy Tonia GOMEZ Start: 07-18-2022 Transurethral resect ion of bladder neoplasm Tonia BARB Start: 06-27-[address] DENICE DEVRIES . Comment on above: Performed By: #### P SAD #### [facility] [address] [place] [address] Dr. Viktoria Nuñez Start: 06-10-2022 Plain X-ray of right shoulder MD Catracho Willis Work Phone: Start: 03-21-2022 MR lumbar spine wo con MD Catracho Willis Work Phone: Start: 12-05-[address] DENICE DEVRIES . Comment on above: Performed By: #### P SAD #### [facility] [address] [place] [address] Dr. Viktoria Nuñez Start: 12-03-2021 X-ray of left knee MD Vickie Willis Work Phone: Start: 11-14-2021 MRI of left femur MD Geoffrey Willis Work Phone: Start: 11-14-2021 XR pre/post mri xray MD Catracho Willis Work Phone: Start: 10-26-2021 X-ray of lumbar spin e, four views MD Catracho Willis Work Phone: Start: 03-24-2021 Arthroplasty of knee Max DEVRIES Start: 10-15-2013 Cystoscopy Toniapete GOMEZ Transrectal biopsy o f prostate using ultrasound guidance Tonia DEVRIES Plan of Treatment Date Care Activity Detail Author Start: 11-14-2021 MRI of left femur MR femur LT wo con [facility] Start: 11-14-2021 XR pre/post mri xray XR pre/post mri xray [facility] Start: 11-14-2021 End: 11-14-2021 Patient encounter procedure Departed Clinical [facility] [address] Immunizations Immunization Date Immunization Notes Care Provider Carina david 11-20-2023 bacillus calmette-kely vaccine YAHAIRA ETHAN [facility] 11-13-2023 bacillus calmette-kely vaccine YAHAIRA ETHAN [facility] 11-06-2023 bacillus calmette-kely vaccine YAHAIRA ETHAN [facility] 05-13-2023 bacillus calmette-kely vaccine YAHAIRA ETHAN [facility] 05-05-2023 bacillus calmette-kely vaccine Tonia DEVRIES [facility] 04-28-2023 bacillus calmette-kely vaccine Tonia DEVRIES [facility] 10-22-2022 bacillus calmette-kely vaccine YAHAIRA ETHAN [facility] 10-14-2022 bacillus calmette-kely vaccine YAHAIRA ETHAN [facility] Comment on above: Early/Late Reason: E vijay/Late Reason: Other : Late documentation. Did not enter correct info 10-14-2022 bacillus calmette-kely vaccine YAHAIRA ETHAN [facility] 10-08-2022 bacillus calmette-kely vaccine YAHAIRA ETHAN [facility] 09-17-2022 bacillus calmette-kely vaccine YAHAIRA ETHAN [facility] 09-10-2022 bacillus calmette-kely vaccine YAHAIRA ETHAN [facility] 09-03-2022 bacillus calmette-kely vaccine YAHAIRA ETHAN [facility] 08-27-2022 bacillus calmette-kely vaccine YAHAIRA ETHAN [facility] 02-28-2021 COVID-19 mRNADorethairnatcelina (Pfizer) MD Catracho Willis Work Phone: [facility] 01-10-2021 Kenalog -40 mg Nahid Canchola Other [facility] Other 09-01-2020 SARS-CoV-2 (COVID-19 ) mRNA BNT-162b2 vax YAHAIAR LONG [facility] 08-28-2020 COVID-19 mRNA Commelanynatcelina (Pfizer) MD Catracho Willis Work Phone: [facility] 08-11-2020 COVID-19 mRNA Comirnatcelina (Pfizer) MD Catracho Willis Work Phone: [facility] NEGATED: Highlighted row has not occurred!06-24-2023 influenza virus vaccine, unspecified formulation Tonia DEVRIES [facility] Payers Date Payer Category Payer Unknown [id number] 2021 Medicaid [id number] 2. [id number] 2021 Self-pay [id number] 2021 Unknown [id number] 2018 Unknown [id number] 1960 Medicare [id number] 2. [id number] 1954 Unknown [id number] 2.16.8 40.1.837711.3.579.2.173 1954 Unknown [id number] 2.16.84 0.1.557876.3.579.2.593 1954 Unknown [id number] 2.16.84 0.1.010808.3.579.2.593 1954 Unknown [id number] 2.16.84 0.1.557627.3.579.2.593 1954 Unknown [id number] 2.16.84 0.1.561495.3.579.2.593 1954 Unknown [id number] 2.16.84 0.1.875300.3.579.2.593 1954 Unknown [id number] 2.16.84 0.1.776940.3.579.2.593 1954 Unknown [id number] 2.16.8 40.1.352970.3.579.2.727 1954 Unknown [id number] 2.16.8 40.1.556595.3.579.2.727 1954 Unknown [id number] 2.16.8 40.1.176104.3.579.2.727 1954 Unknown [id number] 2.16.8 40.1.438475.3.579.2.727 1954 Unknown [id number] 2.16.8 40.1.168359.3.579.2.727 1954 Unknown [id number] 2.16.8 40.1.196726.3.579.2.727 1954 Unknown [id number] 2.16.8 40.1.569056.3.579.2.727 1954 Unknown [id number] 2.16.8 40.1.877506.3.579.2. 1954 Unknown [id number] 2.16.8 40.1.191471.3.579.2. 1954 Unknown [id number] 2.16.8 40.1.073884.3.579.2. 1954 Unknown [id number] 2.16.8 40.1.477062.3.579.2. 1954 Unknown [id number] 2.16.8 40.1.373118.3.579.2. 1954 Unknown [id number] 2.16.8 40.1.699009.3.579.2.7 1954 Unknown [id number] 2.16.8 40.1.162730.3.579.2. 1954 Unknown [id number] 2.16.8 40.1.943524.3.579.2.727 1954 Unknown [id number] 2.16.8 40.1.770308.3.579.2. 1954 Unknown [id number] 2.16.8 40.1.418650.3.579.2.727 1954 Unknown [id number] 2.16.8 40.1.550985.3.579.2.72 1954 Unknown [id number] 2.16.8 40.1.096684.3.579.2.727 1954 Unknown [id number] 2.16.8 40.1.301613.3.579.272 1954 Unknown [id number] 2.16.8 40.1.594611.3.579.2.727 1954 Unknown [id number] .16.8 40.1.788705.3.579.2.727 1954 Unknown [id number] .16.8 40.1.904114.3.579.2.727 1954 Unknown [id number] .16.8 40.1.699422.3.579.2.727 1954 Unknown [id number] 2.16.84 0.1.594181.3.579.2.1259 1954 Unknown [id number] .16.84 0.1.348942.3.579.2.1259 1954 Unknown [id number] .16.84 0.1.981408.3.579.2.1259 Unknown [place] / [id number] Unknown [id number] 2.16.8 40.1.244654.3.579.2.531 Unknown [id number] .16.8 40.1.258171.3.579.2.531 Unknown [id number] .16.8 40.1.972335.3.579.2.531 Unknown [id number] .16.8 40.1.854437.3.579.2.531 Unknown [id number] .16.8 40.1.483297.3.579.2.531 Unknown [id number] .16.8 40.1.328229.3.579.2.531 Unknown [id number] .16.8 40.1.507358.3.579.2.531 Unknown [id number] 2.16.8 40.1.078412.3.579.2.531 Unknown [id number] .16.8 40.1.542238.3.579.2.531 Social History Date Type Detail Facility Sex Assigned At [facility] Start: 07-05-2021 End: 07-05-2021 Tobacco smoking status NHIS Smoker (finding) [facility] Start: 1955 Sex Assigned At Male [facility] Start: 09-05-2020 Tobacco smoking status Never s moked tobacco (finding) [facility] Start: 06-05-2022 End: 11-13-2023 Tobacco smoking status Heavy tobacco smoker (finding) [facility] Tobacco smoking status Never [facility] Medical Equipment Procedure Code Equipment Code Equipment Origin al Text Equipment Identifier Dates Arthroplasty, knee, total, minimally invasive Orthopaedic cement, non-medicated [id number] FDA Start: 07-05-2021 Arthroplasty, knee, total, minimally invasive Coated knee femur prosthesis ()[id number] FDA Start: 07-05-2021 Arthroplasty, knee, total, minimally invasive Tibial insert ()[id number] FDA Start: 07-05-2021 Arthroplasty, knee, total, minimally invasive Polyethylene patella prosthesis ()[id number] FDA Start: 07-05-2021 Arthroplasty, knee, total, minimally invasive Uncoated knee tibia prosthesis, metallic ()[id number] FDA Start: 07-05-2021 Functional Status Date Assessment Result Facility 11-20-2023 Functional Status N/A [facility] 11-06-2023 Functional Status N/A [facility] 09-30-2023 Functional Status N/A [facility] 06-24-2023 Functional Status N/A [facility] 05-13-2023 Functional Status N/A [facility] 05-05-2023 Functional Status N/A [facility] 03-03-2023 Functional Status N/A [facility] 01-17-2023 Functional Status N/A [facility] 12-10-2022 Functional Status N/A [facility] 10-22-2022 Functional Status N/A [facility] 10-08-2022 Functional Status N/A [facility] 09-17-2022 Functional Status N/A [facility] 09-10-2022 Functional Status N/A [facility] 09-03-2022 Functional Status N/A [facility] 08-27-2022 Functional Status N/A [facility] 07-26-2022 Functional Status N/A [facility] 01-07-2022 Functional Status N/A [facility] Clinical Notes 06-28-2010 to 11-20-2023 Note Date & Type Note Facility 11-20-2023 Hospital Discharge instructions Patient Education 11/20/2023 14:58:25 Chemotherapy Chemotherapy Chemotherapy is a cancer treatment. [...] not available, use an alcohol based hand rose grower that contains at least 60% alcohol. Have [...] keep your urine pale yellow. Medicines Take egwb-tlj-crginst and prescription medicines only as told by [...] the type of cancer being treated. Take dpka-suv-wmjsdci and prescription medicines only as told by your health care provider. This information is not intended to replace advice given to you by your health care provider. Make sure you discuss any questions you have with your health care provider. Document Revised: 01/01/2022 Document Reviewed: 01/01/2022 Elsevier Patient Education 2022 [employer]. Follow Up Care 10/28/2023 15:46:45 With:BARB RAMIREZ, Tonia Vasquez, URL Address: [facility] [address], [place] [phone] When: Unknown Comments:sched surveillance cysto 12/[address] [facility]2023 Note Patient Education Oncology Chemotherapy Chemotherapy is a [...] not available, use an alcohol based hand rose grower that contains at least 60% alcohol. Have [...] you receive treatment. Ask your health care (more content not included)... [facility] 11-13-2023 Hospital Discharge instructions Patient Education 11/13/2023 14:35:36 Cancer Screening for Men Cancer Screening for [...] if anything looks unusual. Men with a fnzkvt-iogf-pjxkeq risk for skin cancer may want to see a automation controls specialist (power generation turbine room operator) for an annual body check. What are the benefits of screening? Cancer screening is done to look for cancer in the very early stages, before it spreads and becomes harder to treat and before you would start to notice symptoms. Finding cancer early improves the chances of successful treatment. It may save your life. Where to find more information [employer] [employer]: www.cancer.org Centers for Disease Control and Prevention: www.cdc.gov National Cancer Eaton: www.cancer.gov Contact a health care provider if: [...] provider. Document Revised: 08/06/2021 Document Reviewed: 02/04/2020 [employer] Patient Education 2022 [employer]. Follow Up Care 10/28/2023 15:39:59 With:YAHAIRA LONG PA-C, URL Address: [address] [place] [address] When: Unknown Comments:BCG #3 of 3 in 1 week [facility] 11-13-2023 Note Patient Education Oncology Cancer Screening for Men [...] if anything looks unusual. Men with a oholog-hhdh-hvztds risk for skin cancer may want to see a automation controls specialist (power generation turbine room operator) for an annual body check. What are the benefits of screening? Cancer screening is done to look for cancer in the very early stages, before it spreads and becomes harder to treat and before you would start to notice symptoms. Finding cancer early improves the chances of success (more content not included)... [facility] 11-06-2023 Hospital Discharge instructions Patient Education 11/06/2023 14:46:15 Bladder Cancer Bladder Cancer Bladder cancer is [...] cells. Follow these instructions at home: Take hijj-rpy-kklttnw and prescription medicines only as told by [...] is important. Where to find more information [employer] (ACS): cancer.org National Cancer Eaton (NCI): cancer.gov Contact a health care provider [...] provider. Document Revised: 02/18/2022 Document Reviewed: 02/18/2022 [employer] Patient Education 2022 [employer]. Follow Up Care 10/28/2023 15:36:25 With:ETHAN VILLALTA, YAHAIRA E, URL Address: [address] [place] [address] When: Unknown Comments:1 week for BCG #2 of 3 half dose [facility] [place] 11-06-2023 Note Patient Education Oncology Bladder Cancer Bladder cancer [...] Follow these instructions at home: ? Take dzvh-flf-chssias and prescription medicines only as told by [...] important. Where to find more information ? [place] [employer] (ACS): cancer.org ? National Cancer Eaton (NCI): cancer.gov Contact a health care provider [...] care provider. Make sure you discuss any q (more content not included)... [facility] 09-30-2023 Hospital Discharge instructions Patient Education 09/30/2023 14:07:34 Cancer Screening for Men Cancer Screening for [...] if anything looks unusual. Men with a mfeegy-kvgc-ezztwo risk for skin cancer may want to see a automation controls specialist (power generation turbine room operator) for an annual body check. What are the benefits of screening? Cancer screening is done to look for cancer in the very early stages, before it spreads and becomes harder to treat and before you would start to notice symptoms. Finding cancer early improves the chances of successful treatment. It may save your life. Where to find more information [employer]: www.cancer.org Centers for Disease Control and Prevention: www.cdc.gov National Cancer Eaton: www.cancer.gov Contact a health care provider if: [...] provider. Document Revised: 08/06/2021 Document Reviewed: 02/04/2020 [employer] Patient Education 2022 [employer] Follow Up Care 08/08/2023 12:56:50 With:BARB RAMIREZ, Tonia Vasquez, URL Address: [facility] [address] , [place] [phone] When: Unknown Comments:schedule 3 BCGs, cyst in 3 mos [facility] 09-30-2023 Note Patient Education Oncology Cancer Screening for Men [...] if anything looks unusual. Men with a gssmtq-adrt-qriwgk risk for skin cancer may want to see a automation controls specialist (power generation turbine room operator) for an annual body check. What are the benefits of screening? Cancer screening is done to look for cancer in the very early stages, before it spreads and becomes harder to treat and before you would start to notice symptoms. Finding cancer early improves the chances of success (more content not included)... [facility] 09-30-2023 Evaluation + Plan note Diagnostic Tests PendingUroVysion Fish and Urine Cyto ([facility]) 09/30/23 [facility] 06-24-2023 Hospital Discharge instructions Patient Education 06/24/2023 [...] if anything looks unusual. Men with a spmqdm-peoi-gunyin risk for skin cancer may want to see a automation controls specialist (power generation turbine room operator) for an annual body check. What are the benefits of screening? Cancer screening is done to look for cancer in the very early stages, before it spreads and becomes harder to treat and before you would start to notice symptoms. Finding cancer early improves the chances of successful treatment. It may save your life. Where to find more information [employer]: www.cancer.org Centers for Disease Control and Prevention: www.cdc.gov National Cancer Eaton: www.cancer.gov Contact a health care provider if: [...] provider. Document Revised: 08/06/2021 Document Reviewed: 02/04/2020 [employer] Patient Education 2022 [employer]. Follow Up Care 06/16/2023 14:01:03 With:BARB RAMIREZ, Tonia Vasquez, URL Address: [facility] [address] , [place] [phone] When: Unknown [facility] 06-24-2023 Evaluation + Plan note Diagnostic Tests PendingUroVysion Fish and Urine Cyto ([facility]) 06/24/23 [facility] 05-13-2023 Hospital Discharge instructions Patient Education [...] cells. Follow these instructions at home: Take kawi-jwm-xpcjxhu and prescription medicines only as told by [...] is important. Where to find more information [employer] (ACS): cancer.org National Cancer Eaton (NCI): cancer.gov Contact a health care provider [...] provider. Document Revised: 02/18/2022 Document Reviewed: 02/18/2022 [employer] Patient Education 2022 [employer]. Follow Up Care 03/28/2023 10:45:13 With:[facility] Address: [address] [place] [address] Business (1) When: Unknown Comments:for procedure as scheduled [facility] [place] 05-05-2023 Hospital Discharge instructions [...] not available, use an alcohol based hand rose grower that contains at least 60% alcohol. Have [...] keep your urine pale yellow. Medicines Take pnnp-nuq-kvtzmvn and prescription medicines only as told by [...] the type of cancer being treated. Take bxcz-ptz-trelahr and prescription medicines only as told by your health care provider. This information is not intended to replace advice given to you by your health care provider. Make sure you discuss any questions you have with your health care provider. Document Revised: 01/01/2022 Document Reviewed: 01/01/2022 [employer] Patient Education 2022 [employer]. Follow Up Care 03/28/2023 10:43:05 With:BARB RAMIREZ, Tonia Vasquez, URL Address: [facility] [address] , [place] [phone] When: Unknown Comments:BCG #3/3 on 05/13/23 [facility] 03-28-2023 Evaluation note Encounter Date Diagnosis [...] no improvement in 2 to 3 days [facility] Other 12-11-2023 Hospital Discharge instructions Patient Education [...] cells. Follow these instructions at home: Take lvcf-amt-btnwvkx and prescription medicines only as told by [...] is important. Where to find more information [employer] [employer] (ACS): cancer.org National Cancer Eaton (NCI): cancer.gov Contact a health care provider [...] provider. Document Revised: 02/18/2022 Document Reviewed: 02/18/2022 [employer] Patient Education 2022 [employer]. Follow Up Care 01/17/2023 11:24:37 With:BARB RAMIREZ, Tonia Vasquez, URL Address: [facility] [address], [place] [address]- When: Unknown Comments:After BCG treatments. [facility] [place] 10-27-2023 Hospital Discharge instructions [...] cells. Follow these instructions at home: Take lgou-uqi-moldfxr and prescription medicines only as told by [...] is important. Where to find more information [employer] (ACS): cancer.org National Cancer Eaton (NCI): cancer.gov Contact a health care provider [...] provider. Document Revised: 02/18/2022 Document Reviewed: 02/18/2022 [employer] Patient Education 2022 [employer]. Follow Up Care 12/12/2022 09:52:31 With:BARB RAMIREZ, Tonia Vasquez, URL Address: [address] [place] [address]- When: Unknown [facility] 09-19-2023 Hospital Discharge instructions Patient Education 12/10/2022 [...] cells. Follow these instructions at home: Take qkxn-lzi-jltoejl and prescription medicines only as told by [...] is important. Where to find more information [employer] (ACS): cancer.org National Cancer Eaton (NCI): cancer.gov Contact a health care provider [...] provider. Document Revised: 02/18/2022 Document Reviewed: 02/18/2022 [employer] Patient Education 2022 [employer]. Follow Up Care 10/29/2022 16:25:46 With:BARB RAMIREZ, Tonia Vasquez, URL Address: [facility] [address] , [place] [phone] When: Unknown Comments:piter PONCE [facility] 08-01-2023 Hospital Discharge instructions Patient Education 10/22/2022 [...] cells. Follow these instructions at home: Take avxk-ecx-spukoau and prescription medicines only as told by [...] is important. Where to find more information [employer] (ACS): cancer.org National Cancer Eaton (NCI): cancer.gov Contact a health care provider [...] provider. Document Revised: 02/18/2022 Document Reviewed: 02/18/2022 [employer] Patient Education 2022 [employer]. Follow Up Care 09/17/2022 13:12:31 With:BARB RAMIREZ, Tonia Vasquez, URL Address: [address] [place] [address]- When: Unknown [facility] 07-18-2023 Hospital Discharge instructions Patient Education [...] cells. Follow these instructions at home: Take svte-jsx-kvksffc and prescription medicines only as told by [...] is important. Where to find more information [employer] (ACS): cancer.org National Cancer Eaton (NCI): cancer.gov Contact a health care provider [...] provider. Document Revised: 02/18/2022 Document Reviewed: 02/18/2022 [employer] Patient Education 2022 [employer]. Follow Up Care 08/01/2022 10:02:51 With:BARB RAMIREZ, Tonia Vasquez, URL Address: [address] [place] [address]- When: Unknown [facility] 06-27-2023 Hospital Discharge instructions Patient Education [...] cells. Follow these instructions at home: Take jpee-ews-wpgdhtx and prescription medicines only as told by [...] is important. Where to find more information [employer] (ACS): cancer.org National Cancer Eaton (NCI): cancer.gov Contact a health care provider [...] provider. Document Revised: 02/18/2022 Document Reviewed: 02/18/2022 Dionisio Patient Education 2022 [employer]. Follow Up Care 08/01/2022 09:55:17 With:ETHAN VILLALTA, YAHAIRA Hallman, URL Address: [address] [address] When:Within 1 Week(s) Comments:Sched BCG #4 [facility] 06-20-2023 Hospital Discharge instructions Patient Education [...] cells. Follow these instructions at home: Take cyls-lnw-nfcfbvs and prescription medicines only as told by [...] is important. Where to find more information [employer] (ACS): cancer.org National Cancer Eaton (NCI): cancer.gov Contact a health care provider [...] provider. Document Revised: 02/18/2022 Document Reviewed: 02/18/2022 [employer] Patient Education 2022 [employer]. Follow Up Care 08/01/2022 09:51:36 With:[facility] Address: [address] [place] [address] Business (1) When: Unknown Comments:for procedure as scheduled [facility] 06-13-2023 Hospital Discharge instructions Patient Education [...] cells. Follow these instructions at home: Take jfwt-gds-neprlmo and prescription medicines only as told by [...] is important. Where to find more information [employer] (ACS): cancer.org National Cancer Eaton (NCI): cancer.gov Contact a health care provider [...] provider. Document Revised: 02/18/2022 Document Reviewed: 02/18/2022 [employer] Patient Education 2022 [employer]. [facility] 06-06-2023 Hospital Discharge instructions Patient Education [...] Follow these instructions at home: Medicines Take xitd-acg-maryozd and prescription medicines only as told by [...] Document Reviewed: 10/20/2020 Elsevier Patient Education 2022 [employer] [facility] 05-05-2023 Hospital Discharge instructions Patient Education [...] cells. Follow these instructions at home: Take rpey-wpb-jegixyr and prescription medicines only as told by [...] is important. Where to find more information [employer] (ACS): cancer.org National Cancer Eaton (NCI): cancer.gov Contact a health care provider [...] provider. Document Revised: 02/18/2022 Document Reviewed: 02/18/2022 [employer] Patient Education 2022 Elsevier Inc. Follow Up Care 07/16/2022 10:49:06 With:Tonia DEVRIES MD, URL Address: [address] [place], [place] [id number]- When: Unknown [facility] 04-26-2023 NotePROCEDURE: XR CHEST 2 V [...] Electronically authenticated by: NORMA SMALL Date: 2022-07-17 09:32[facility]04-25-2023 Evaluation + Plan noteExtracted from: Title:Urology Progress Note Author:aMx DEVRIES MD Date:07/16/22 Impression and Plan Impression: #1. This gentleman's gross hematuria seems to be from multiple bladder tumors. These need to get resected. Plan: #1. We are getting him scheduled to go under anesthesia with paralysis for TURBT, left ureteroscopy, possible laser of bladder tumors and left stent placement. Future Appointments Appointment Date:07/26/2022 08:30:00 AM Scheduled Provider:Tonia DEVRIES MD Location:[facility] Appointment Type:URO Office Visit Appointment Date:01/10/2023 10:45:00 AM Scheduled Provider:Tonia DEVRIES MD Location:[facility] Appointment Type:URO Office Visit Diagnostic Tests Pending * [facility] Urine [facility]to ([facility]) 07/16/22 [facility]04-25-2023 Hospital Discharge instructions Patient Education 07/16/2022 10:30:28 [...] With:Tonia DEVRIES Address: [facility] [address], [place] [address]- Business (1) When: Unknown Comments:Office will call to schedule follow up [facility]03-20-2023 Evaluation note* Encounter Date Diagnosis Assessment [...] Primary osteoarthritis, right shoulder (ICD-10 - M19.011) [facility] Other 01-06-2023 Evaluation note* Encounter Date Diagnosis [...] Dr. Cooper for evaluation and further treatment. [facility] Other 10-17-2022 Hospital Discharge instructions Patient Education [...] if anything looks unusual. Men with a bpwnbu-uzwn-hwrtpc risk for skin cancer may want to see a automation controls specialist (power generation turbine room operator) for an annual body check. Where to find more information National Cancer Eaton: https://www.cancer.gov/about-cancer/screening Centers for Disease Control and Prevention: https://www.cdc.gov/cancer/dcpc/prevention/screening.htm [employer]: https://www.cancer.org/latest-news/5-dktvcr-vrclasozd-uxmsj-qll-lqa.html Contact a health care provider if: You [...] 12/05/2016 Document Revised: 11/27/2018 Document Reviewed: 12/05/2016 Acc[employer]in Patient Education 2020 [employer]. Follow Up Care 12/04/2020 12:10:49 With:BARB RAMIREZ, Tonia Vasquez, CLAUDIAL Address: [facility] [address] [place] [phone] When:01/07/2023 Comments:PSA [facility] 09-12-2022 Evaluation note* Encounter Date Diagnosis [...] left hamstring, initial encounter (ICD-10 - S76.312A) [facility] Other 08-11-2022 Evaluation note* Encounter Date Diagnosis Assessment Notes Treatment Notes Treatment Clinical Notes Oct, Status post total left knee replacement (ICD-10 - Z96.652) [facility] Other 07-08-2022 Evaluation note* Encounter Date Diagnosis [...] left hamstring, initial encounter (ICD-10 - S76.312A) [facility] Other 05-27-2022 Evaluation note* Encounter Date Diagnosis [...] use of Tylenol as needed for pain. [facility] Other 05-11-2022 Evaluation note* Encounter Date Diagnosis [...] time. Continue icing for his hamstring ecchymosis. [facility] Other 04-27-2022 Evaluation note* Encounter Date Diagnosis [...] and strengthening exercises. Call with questions/concerns . [facility] Other 04-11-2022 Evaluation note* Encounter Date Diagnosis [...] was discussed. 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 I have [...] M25.562) Jun, Pre-op exam (ICD-10 - Z01.818) [facility] Other 01-31-2022 Evaluation note* Encounter Date Diagnosis [...] pain of left knee (ICD-10 - M25.562) [facility] Other 12-20-2021 Evaluation note* Encounter Date Diagnosis [...] portal. He tolerated this well. Did discuss lycm-zrc-lrqrzgb anti-inflammatory medications and handout has been given. [...] pain of left knee (ICD-10 - M25.562) [facility] Other 11-22-2021 Evaluation note* Encounter Date Diagnosis [...] pain of left knee (ICD-10 - M25.562) [facility] Other 10-20-2021 Evaluation note* Encounter Date Diagnosis [...] as documented in the electronic medical record. [facility] Other 04-07-2011 History general Narrative - Reported* Type Description Date Medical History knee pain Medical History Arthritis Medical History sleeping disorder Surgical History right total knee arthroplasty Surgical History bilateral shoulders [facility] Other 04-07-2011 History general Narrative - Reported* Type Description Date Medical History knee pain Medical History Arthritis Medical History sleeping disorder Medical History acid reflux Surgical History right partial knee arthroplasty 06/28/10 Surgical History bilateral shoulders [facility] Other 04-07-2011 History general Narrative - Reported* Type Description Date Medical History knee pain Medical History Arthritis Medical History sleeping disorder Medical History acid reflux Surgical History right partial knee arthroplasty 06/28/10 Surgical History bilateral shoulders Surgical History LT TKR 07/05/2021 [facility] Other 04-07-2011 History general Narrative - Reported* Type Description Date Medical History knee pain Medical History Arthritis Medical History sleeping disorder Medical History acid reflux Surgical History right partial knee arthroplasty 06/28/10 Surgical History bilateral shoulders Right Cuff Repair Surgical History LT TKR 07/05/2021 [facility] Other 04-07-2011 History general Narrative - Reported* Type Description Date Medical History knee pain Medical History Arthritis Medical History sleeping disorder Medical History acid reflux Surgical History right partial knee arthroplasty 06/28/10 Surgical History bilateral shoulders Right Cuff Repair Surgical History LT TKR 07/05/2021 Surgical History bladder cancer 2022 [facility] Other evaluation + Plan note Future Appointments Appointment Date:01/10/2023 10:45:00 AM Scheduled Provider:Tonia DEVRIES MD Location:[facility] Appointment Type:URO Office Visit Diagnostic Tests Pending * PSA Total 01/07/22 [facility] evaluation + Plan note Future Appointments Appointment Date:01/10/2023 10:45:00 AM Scheduled Provider:Tonia DEVRIES MD Location:[facility] Appointment Type:URO Office Visit [facility] evaluation + Plan note Future Appointments Appointment Date:09/03/2022 08:45:00 AM Scheduled Provider:YAHAIRA LONG PA-C Location:[facility] Appointment Type:URO Office Visit Appointment Date:09/10/2022 08:45:00 AM Scheduled Provider:YAHAIRA LONG PA-C Location:[facility] Appointment Type:URO Office Visit Appointment Date:09/17/2022 08:45:00 AM Scheduled Provider:YAHAIRA LONG PA-C [facility] App[facility] Type:URO Office Visit Appointment Date:10/01/2022 08:45:00 AM Scheduled Provider:YAHAIRA LONG PA-C [facility] Appointment Type:URO Office Visit Appointment Date:10/08/2022 08:45:00 AM Scheduled Provider:YAHAIRA LONG PA-C Location[facility] Appointment Type:URO Office Visit Appointment Date:01/10/2023 10:45:00 AM Scheduled Provider:Tonia DEVRIES MD [facility] Appointment Type:URO Office Visit [facility] evaluation + Plan note Future Appointments Appointment Date:09/03/2022 08:45:00 AM Scheduled Provider:YAHAIRA LONG PA-C [facility] Type:[facility]O Office Visit Appointment Date:09/10/2022 08:45:00 AM Scheduled Provider:YAHAIRA LONG PA-C [facility] Appointment Type:URO Office Visit Appointment Date:09/17/2022 08:45:00 AM Scheduled Provider:YAHAIRA LONG PA-C [facility] Appointment Type:URO Office Visit Appointment Date:10/01/2022 08:45:00 AM Scheduled Provider:YAHAIRA LONG PA-C [facility] Appointment Type:URO Office Visit Appointment Date:10/08/2022 08:45:00 AM Scheduled Provider:YAHAIRA LONG PA-C [facility] Appointment Type:URO Office Visit Appointment Date:01/10/2023 10:45:00 AM Scheduled Provider:Tonia DEVRIES MD [facility] Appointment Type:URO Office Visit Diagnostic Tests Pending * [facility]ments Appointment Date:09/10/2022 08:45:00 AM Scheduled Provider:YAHAIRA LONG PA-C [facility] Appointment Type:URO Office Visit Appointment Date:09/17/2022 08:45:00 AM Scheduled Provider:YAHAIRA LONG PA-C [facility] Appointment Type:URO Office Visit Appointment Date:10/01/2022 08:45:00 AM Scheduled Provider:YAHAIRA LNOG PA-C [facility] Appointment Type:URO Office Visit Appointment Date:10/08/2022 08:45:00 AM Scheduled Provider:YAHAIRA LONG PA-C [facility] Appointment Type:URO Office Visit Appointment Date:01/10/2023 10:45:00 AM Scheduled Provider:Tonia DEVRIES MD [facility] Appointment Type:URO Office Visit [facility] evaluation + Plan note Future Appointments Appointment Date:09/17/2022 08:45:00 AM Scheduled Provider:YAHAIRA LONG PA-C Location:[facility] Appointment Type:URO Office Visit Appointment Date:10/01/2022 08:45:00 AM Scheduled Provider:YAHAIRA LONG PA-C Location:[facility] Appointment Type:URO Office Visit Appointment Date:10/08/2022 08:45:00 AM Scheduled Provider:YAHAIRA LONG PA-C Location:[facility] Appointment Type:URO Office Visit Appointment Date:01/10/2023 10:45:00 AM Scheduled Provider:Tonia DEVRIES MD Location:[facility] Appointment Type:URO Office Visit [facility] evaluation + Plan note Future Appointments Appointment Date:10/08/2022 08:45:00 AM Scheduled Provider:YAHAIRA LONG PA-C [facility] Appointment Type:URO Office Visit Appointment Date:10/14/2022 09:30:00 AM Scheduled Provider:Tonia DEVRIES MD [facility] Appointment Type:URO Office Visit Appointment Date:10/22/2022 08:45:00 AM Scheduled Provider:YAHAIRA LONG PA-C [facility] Appointment Type:URO Office Visit Appointment Date:01/10/2023 10:45:00 AM Scheduled Provider:Tonia DEVRIES MD [facility] Appointment Type:URO Office Visit [facility] evaluation + Plan note Future Appointments Appointment Date:10/14/2022 09:30:00 AM Scheduled Provider:Tonia DEVRIES MD Location[facility] Appointment Type:URO Office Visit Appointment Date:10/22/2022 08:45:00 AM Scheduled Provider:YAHAIRA LONG PA-C [facility] Appointment Type:URO Office Visit Appointment Date:01/10/2023 10:45:00 AM Scheduled Provider:Tonia DEVRIES MD Location:[facility] Appointment Type:URO Office Visit [facility] evaluation + Plan note Future Appointments Appointment Date:12/10/2022 01:30:00 PM Scheduled Provider:[facility] DEVRIES MD [facility] Procedure 15 min Diagnostic Tests Pending * PSA [facility] App[facility]ments Appointment Date:12/10/2022 01:30:00 PM Scheduled Provider:Tonia DEVRIES MD [facility] Type:URO Procedure 15 min [facility] evaluation + Plan note Future Appointments Appointment Date:03/03/2023 09:00:00 AM Scheduled Provider:Tonia DEVRIES MD Location:[facility] Appointment Type:URO Office Visit [facility] [employer] evaluation + Plan note Future Appointments Appointment Date:05/13/2023 09:00:00 AM Scheduled Provider:YAHAIRA LONG PA-C Location:[facility] Appointment Type:URO Office Visit [facility] [employer] evaluation + Plan note Future Appointments Appointment Date:06/24/2023 01:15:00 PM Scheduled Provider:Tonia DEVRIES MD Location:[facility] Appointment Type:URO Procedure 15 min [facility] [employer] evaluation + Plan note Future Appointments Appointment Date:11/13/2023 02:20:00 PM Scheduled Provider:YAHAIRA LONG PA-C Location:[facility] Appointment Type:URO Office Visit Appointment Date:11/20/2023 02:20:00 PM Scheduled Provider:YAHAIRA LONG PA-C [facility] App[facility] Type:URO Office Visit [facility] evaluation + Plan note Future Appointments Appointment Date:11/20/2023 02:20:00 PM Scheduled Provider:YAHAIRA LONG PA-C Location:[facility] Appointment Type:URO Office Visit [facility] evaluation noteNo InformationNort Meetapp Other Evaluation noteNo assessment information available [facility] Work Phone: Hospital course Narrative No data available for this section [facility] Hospital Discharge instructions No data available for this section [facility] No data available for this section [facility] Summary Purpose Family History No Family [...] in right should er (M25.511) Referral Organization [facility] Referring Provider First Name Nahid Referring Provider Last Name Trish Referring Provider Specialty Orthopedic Surgery Referred Organization [facility] Referred Provider Mickie Cooper Referred Address [address],[phone] Referred Provider Specialty Orthopedic S urgery Referral [...] section and content) DATE CREATED AUTHOR 08/24/2018 [facility] DATE CREATED AUTHOR AUTHOR'S ORGANIZ ATION 06/25/2022 [facility] DATE CREATED AUTHOR AUTHOR'S ORGANIZ ATION 07/31/2022 [facility] DATE CREATED AUTHOR AUTHOR'S ORGANIZ ATION 11/21/2023 [facility] DATE CREATED AUTHOR AUTHOR'S ORGANIZ ATION 12/06/2023 [facility] DATE CREATED AUTHOR AUTHOR'S ORGANIZ ATION 12/18/2023 [facility] EPIC REASON FOR VISIT (unrecogniz [...] BE BASED ON THE PRIMARY CLINICAL RECORDS. [facility] [employer] [facility]. provides no warranty or guarantee of the accuracy or completeness of information in this document.
[2023-12-19 14:28] LABS: Basophils Percent Auto 0.1 % (0.2-2.0); Eosinophils Percent Auto 0.1 % (0.9-7.0); Hematocrit 48.8 % (42.0-54.0); Immature Granulocytes Abs Auto 0.03 10^3/uL (0.00-0.03); Immature Granulocytes Pct Auto 0.4 % (0.0-0.5); Lymphocytes Absolute Auto 1.9 10^3/uL (1.2-3.8); Lymphocytes Percent Auto 26.1 % (20.5-60.0); Mean Corpuscular HGB Conc 32.8 g/dL (29.9-35.2); Mean Corpuscular Hemoglobin 30.9 pg (25.9-34.0); Mean Corpuscular Volume 94.4 fL (80.0-94.0); Mean Platelet Volume 10.4 fL (9.5-13.5); Monocytes Absolute Auto 0.6 10^3/uL (0.3-0.8); Monocytes Percent Auto 7.9 % (1.7-12.0); Neutrophils Absolute Auto 4.7 10^3/uL (1.4-6.5); Neutrophils Percent Auto 65.4 % (43.0-75.0); Platelet Count 243 10^3/uL (150-450); Red Blood Count 5.17 10^6/uL (4.70-6.10); Red Cell Distribution Width 13.1 % (11.0-15.0); White Blood Count 7.1 10^3/uL (4.0-11.0)
[2023-12-19 14:54] LABS: Alanine Aminotransferase 28 U/L (16-63); Albumin Globulin Ratio 1.2; Albumin Level 4.1 g/dL (3.4-5.0); Alkaline Phosphatase 92 U/L (46-116); Anion Gap 11.1; Aspartate Amino Transferase 26 U/L (15-37); BUN Creatinine Ratio 10.7; Bilirubin Direct 0.1 mg/dL (0.0-0.2); Bilirubin Total 0.6 mg/dL (0.2-1.0); Calcium 9.8 mg/dL (8.5-10.1); Carbon Dioxide 30.6 mmol/L (21.0-32.0); Chloride 99 mmol/L (98-107); Chol HDL Ratio 4.7; Cholesterol 212 mg/dL (<=200); Estimated GFR (African America >60 (>=60); Estimated GFR (Non-African Ame 59 (>=60); Globulin 3.4 g/dL; Glucose 119 mg/dL (74-106); HDL Cholesterol 45 mg/dL (40-60); Potassium 3.7 mmol/L (3.5-5.1); Sodium 137 mmol/L (136-145); Total Protein 7.5 g/dL (6.4-8.2); Triglycerides 97 mg/dL (<=150); VLDL CHOLESTEROL 19.4 mg/dL
[2023-12-19 15:08] LABS: Prostate Specific Antigen Scrn 1.89 ng/mL (<=4.00)
[2023-12-19 15:11] LABS: Estimated Average Glucose 111 mg/dL; Glycohemoglobin A1C 5.5 % (4.5-6.2)
== END 2023-12-19 14:13 | disposition home or self-care (01) ==
LOC: LAB 14:13
PROVIDERS: PCP Family Medicine; Visit Provider Family Medicine
DX: E78.5 Hyperlipidemia, unspecified (principal); R73.03 Prediabetes; Z79.899 Other long term (current) drug therapy; Z12.5 Encounter for screening for malignant neoplasm of prostate
CPT/HCPCS: 36415; 80048; 80061; 80076; 83036; 85025; G0103

== ENCOUNTER 2024-05-31 12:40 | Outpatient (OUT) | payer MEDICARE, SELFPAY ==
--- OUTSIDE RECORDS SUMMARY | 2024-05-31 12:59 | XMS_ITS | CCD ---
Author Organization [facility] Care Team Providers Care Director Clinical Applications Name Role Phone CATRACHO WILILS Primary Care UnavailJAMIE Collier Attending Unavailable Jesika, Nahid Unavailable Les Paul Unavailable MD Catracho Willis Primary Care Provider DO Nahid Canchola Attending Provider CATRACHO WILLIS Primary Care Physician MD Catracho Willis Primary Care Provider DO Nahid Canchola A Attending Provider MD Catracho Willis Primary Care Provider DO Nahid Canchola A Attending Provider MD Mickie Cooper Attending Provider [phone] Mickie Cooper Unavailable Catracho Willis Primary Care [...] Primary Care Unavailable Mickie Cooper Admitting Unavailable Catracho Willis Primary Care Unavailable Jesika, Nahid A Attending Unavailable Jesika, Nahid A Admitting Unavailable Catracho Willis Primary Care Unavailable Jesika, Nahid A Admitting Unavailable Jesika, Nahid A Attending Unavailable NadereCatracho vasquez Primary Care Unavailable Nahid Canchola Admitting Unavailable Nahid Canchola Attending Unavailable DEVRIES ., DR RANDALL Consulting Unavailable DEVRIES ., DR RANDALL Admitting Unavailable NADERER, DR CATRACHO Coronado Primary Care Unavailable DEVRIES ., DR RANDALL Attending Unavailable ZIEBER, DR CLARIBEL Vasquez Consulting Unavailable NADERER, DR CATRACHO Coronaod Primary Care Unavailable ETHAN, YAHAIRA Admitting Unavailable [...] Unavailable DEVRIES ., DR RANDALL Admitting Unavailable SINAN SANTACRUZ Consulting Unavailable FEINORMA DE JESUS Consulting Unavailable DEVRIES ., DR RANDALL Attending Unavailable DEVRIES ., DR RANDALL Admitting Unavailable DEVRIES ., DR RANDALL Consulting Unavailable NADERER, DR CATRACHO Coronado Primary Care Unavailable DAMEON II, MICKIE Consulting Unavailable FILUTZE, LASHONDA Consulting Unavailable Margaret Hardy Unavailable CATRACHO WILLIS Attending Unavailable FLAQUITA SEE Attending Unavailable NADERECATRACHO Vasquez Attending Unavailable Catracho Willis MD Primary Care Provider Catracho Willsi MD Unavailable YAHAIRA LONG Attending Unavailable ETHAN, YAHAIRA Hallman Attending Unavailable DEVRIES, Tonia R Admitting Unavailable [...] Attending Unavailable DEVRIES, Tonia R Admitting Unavailable Medications Current Medications Medication Drug Class(es) [...] Daily, # 90 tab(s), Refills(s) 3, Pharmacy: [facility], 182, cm, 09/10/22 8:56:00 EDT, Height/Length Dosing, 85, kg, 09/10/22 8:56:00 EDT, Weight Dosing Start Date: 09/10/22 Status: Ordered Start: 04-05-2022 take 1 tablet by brian th once daily Myrbetriq 50 mg oral tablet, extended release 50 mg = 1 tab(s), Oral, Daily, # 30 tab(s), Refills(s) 11, Pharmacy: [facility], 182, cm, 01/07/22 12:37:00 EDT, [...] 1 tablet Orally Once a day Active nicotine 2 mg chewing gum (4 sources) Cholinergic Nicotinic Agonist Start: 04-02-2023 nicotine polacrilex (Nicorette) 2 MG gum Indications: Tobacco user Chew 1 piece every 2-4 hours as needed 100 each 1 04/02/2023 Active omeprazole 40 mg delayed release oral capsule (20 sources) Proton Pump Inhibitor Start: 05-18-2021 Omeprazo le Active 40 MG PO Q48H May 18, 2021 1:00am take 1 capsule by mouth once ethan ly Omeprazole 40 MG 1 capsule 30 minutes before morning meal Orally Once a day Not-Taking oxybutynin chloride 5 mg oral tablet (12 sources) Cholinergic Muscarinic Antagonist Start: 05-13-2023 End: 05-07-2024 take 1 tablet by mouth at bedtime oxybutynin 5 mg Tab 5 mg = 1 tab(s), Oral, Bedtime, X 30 day(s), # 30 tab(s), Refills(s) 11, Pharmacy: [facility], 182, cm, 05/13/23 9:11:00 EST, [...] for 10 day(s), 20 tab(s), Refill(s) 0, [facility], 182, cm, 03/03/23 9:14:00 EST, Height/Length Dosing, 84, kg, 03/03/23 9:14:00 EST, Weight Dosing Start Date: 03/10/23 Stop Date: 03/20/23 Status: Ordered Start: 08-27-2022 End: 09-03-2022 take 1 tablet by mouth twice daily Bactrim D.S. 800 mg-160 mg Tab 1 tab(s), Oral, BID for 7 day(s), 14 tab(s), Refill(s) 0, [facility], 182, cm, 08/27/22 9:05:00 EDT, [...] Sep, Not-Taking ciprofloxacin 500 mg oral tablet (7 sources) Quinolone Antimicrobial Start: 04-01-2024 take 1 tablet by mouth once daily Cipro 500 mg Tab 500 mg = 1 tab(s), Oral, Daily, Take 1 tablet the day before the procedure and 1 tablet after the procedure, # 8 tab(s), Refills(s) 0, Pharmacy: [facility], 182, cm, 01/06/24 14:00:00 EDT, Height/Length Dosing, 85, kg, 01/06/24 14:00:00 EDT, Weight Dosing Start Date: 04/01/24 Status: Ordered Start: 11-05-2022 take 1 tablet by brian th once daily Cipro 500 mg Tab 500 mg = 1 tab(s), Oral, Daily, Take 1 tablet the day before the procedure and 1 tablet after the procedure, # 6 tab(s), Refills(s) 0, Pharmacy: [facility], 182, cm, 10/22/22 9:11:00 EDT, Height/Length Dosing, 84, kg, 10/22/22 9:11:00 EDT,... Start Date: 11/05/22 Status: Ordered Start: 07-26-2022 Cipro 500 mg T ab 500 mg = 1 tab(s), Oral, As Directed, Pt to take 1 tab the day before procedure and the 2nd tab the day of procedure once completed., # 2 tab(s), Refills(s) 0, Pharmacy: [facility], 182, cm, 07/26/22 9:01:00 EDT, Height/Length Dosing, 82, k... Start Date: 07/26/22 Status: Ordered Start: 06-25-2022 take 1 tablet by brian th once daily Cipro 500 mg Tab 500 mg = 1 tab(s), Oral, Daily, Take 1 tablet the day before the procedure and 1 tablet after the procedure, # 2 tab(s), Refills(s) 0, Pharmacy: [facility], 182, cm, 06/05/22 11:46:00 EDT, [...] relations., # 30 tab(s), Refills(s) 3, Pharmacy: [facility], 182, cm, 01/17/23 10:30:00 EDT, [...] period., # 30 tab(s), Refills(s) 3, Pharmacy: [facility], 182, cm, 12/04/20 11:58:0... Start [...] Start: 07-02-2021 take 2 tablets by mo uth every eight hours Tylenol Extra Strength 500 MG 2 tabs Orally every 8 hrs for 30 days Do not fill 07/03/21 Jun, Active Problems Active Problems Problem Classification Problem Date Documented Date Episodic/Chronic Anxiety disorders (4 sources) Generalized anxiety disorder; Translations: [Generalized anxiety disorder] Onset: 04-02-2023 04-02-2023 Chronic Calculus of urinary tract (20 sources) Kidney stone; Translations: [Calculus of kidney] Onset: 07-26-2022 Episodic Cancer of bladder (20 sources) Malignant tumor of urinary bladder; Translations: [Malignant neoplasm of bladder, unspecified] Onset: 07-26-2022 Chronic Cancer of bladder (6 sources) History of malignant neoplasm of bladder; Translations: [Personal history of malignant neoplasm of bladder] Onset: 06-24-2023 Episodic Cancer; other and unspecified primary (11 sources) H/O: malignant neoplasm 06-24-2023 Episodic Disorders of lipid metabolism (2 sources) Dyslipidemia; Translations: [Hyperlipidemia, unspecified] 12-16-2023 Chronic Diverticulosis and diverticulitis (1 source) Diverticulosis of large intestine without perforation or abscess without bleeding; Translations: [DVRTCLOS LG INT NO PERF/ABSC W/O BL] Onset: 07-05-2022 Chronic Esophageal disorders (4 sources) Gastroesophageal reflux disease without esophagitis; Translations: [Gastro-esophageal reflux disease without esophagitis] Onset: 04-02-2023 04-02-2023 Chronic Genitourinary symptoms and ill-defined conditions (20 sources) Proteinuria; Translations: [Nocturia] Onset: 06-27-2022 Resolved: 04-02-2023 09-20-2019 Episodic Hyperplasia of prostate (20 sources) [...] UNS BEHAVIOR OF BLADDER] Onset: 07-18-2022 Episodic Nutritional deficiencies (4 sources) Vitamin D deficiency; Translations: [Vitamin D deficiency, unspecified] Onset: 04-02-2023 04-02-2023 Chronic Osteoarthritis (20 sources) Arthritis of left knee; Translations: [Unilateral primary osteoarthritis, left knee] Onset: 01-10-2021 Resolved: 07-02-2021 Chronic Other aftercare (5 sources) Long-term current use of drug therapy; Translations: [Other assisted (current) drug therapy] Onset: 12-16-2023 12-16-2023 Episodic Other connective tissue disease (10 sources) History [...] Onset: 07-30-2022 Episodic Other male genital disorders (11 sources) Male erectile dysfunction, unspecified; Translations: [Erectile dysfunction] Onset: 01-07-2022 Chronic Other male genital disorders (20 sources) Impotence 09-20-2019 Chronic Other nervous system disorders (4 sources) Bilateral carpal tunnel syndrome; Translations: [Carpal tunnel syndrome, bilateral upper limbs] Onset: 04-02-2023 04-02-2023 Chronic Other non-traumatic joint disorders (2 sources) Pain in right shoulder Episodic Other screening for suspected conditions (not mental disorders or infectious disease) (20 sources) Raised prostate specific antigen; Translations: [Elevated prostate specific antigen [PSA]] Onset: 07-26-2022 Episodic Residual codes; unclassified (4 sources) Hypersomnia; Translations: [Hypersomnia, unspecified] Onset: 04-02-2023 04-02-2023 Chronic Residual codes; unclassified (3 sources) Family history [...] HISTORY OTH SPEC CONDITION] Onset: 07-05-2022 Episodic Residual codes; unclassified (8 sources) Tobacco user; Translations: [Tobacco use] Onset: 04-02-2023 01-06-2024 Episodic Spondylosis; intervertebral disc disorders; other back problems (4 sources) Degeneration of lumbar intervertebral disc; Translations: [Other intervertebral disc degeneration, lumbar region] Onset: 04-02-2023 04-02-2023 Chronic Sprains and strains (7 sources) Sprain of medial collateral ligament of left knee, initial encounter; Translations: [Sprain of medial collateral ligament of left knee, subsequent encounter] Onset: 01-10-2021 Resolved: 12-03-2021 Episodic Substance-related disorders (3 sources) Nicotine dependence, cigarettes, uncomplicated; Translations: [Smoker] Onset: 07-30-2022 04-20-2024 Chronic Comment on above: Added secondary to d ocumentation in Social History. Unclassified (1 source) Pain in right shoulder; [...] Classification Problem Date Documented Da te Episodic/Chronic Diabetes mellitus without complication (6 sources) Prediabetes; Translations: [Prediabetes] Onset: 04-02-2023 4 Episodic Joint disorders and dislocations; trauma-related (4 sources) Other tear of medial meniscus, current injury, left knee, initial encounter; Translations: [Other tear of medial meniscus, current injury, left knee, subsequent encounter] Onset: 01-10-2021 Resolved: 04-23-2021 Episodic Mood disorders (3 sources) Mood disorders Onset: 12-16-2023 12-16-2023 Other connective tissue disease (4 sources) Pain in left lower limb; Translations: [Pain in left leg] Onset: 04-02-2023 04-02-2023 Episodic Other non-traumatic joint disorders (6 sources) Pain in left knee; Translations: [Acute pain of left knee M25.562] Onset: 01-10-2021 Resolved: 07-02-2021 Episodic Other non-traumatic joint disorders (4 sources) Multiple joint pain; Translations: [Pain in unspecified joint] Onset: 04-02-2023 04-02-2023 Episodic Other non-traumatic joint disorders (4 sources) Chronic pain of right upper limb; Translations: [Pain in right shoulder] Onset: 04-02-2023 04-02-2023 Episodic Spondylosis; intervertebral disc disorders; other back problems (2 sources) Radiculopathy, lumbar region; Translations: [Radiculopathy, lumbar region] Onset: 03-21-2022 Episodic Unclassified (1 source) Contact with and (suspected) exposure to covid-19 Z20.822 Viral infection (4 sources) Disease caused by 2019-nCoV; Translations: [COVID-19] Onset: 04-02-2023 Resolved: 12-16-2023 12-16-2023 Episodic Viral infection (1 source) COVID-19 Results Test Name Value Interpretation Reference Range Facil ity UroVysion Fish and Urine Cyt o ([facility])on 04-28-2024 UVFISH & UC Diagnosis Info Invalid Interpretation Code [facility] Comment on above: Result Comment: A:Ur ine,Bladder Wash:Bladder Wash Diagnosis Summary - Adequate cellularity for evaluation. Diagnosis Summary - The UroVysion FISH study detected normal copy numbers for chromosomes 3, 7, 17, and 9p21. 26 cells were analyzed in this evaluation. No evidence of aneuploidy for chromosomes 3, 7, or 17 or deletion of the 9p21 locus was found in cells present in this specimen. This test does not rule out the possibility of a low grade non-invasive papillary urothelial carcinoma. These findings should be correlated with cytology and cystoscopy results. * CPT: 21423, 15771. Microscopic Notes - Microscopic Notes - Abnormal cells 9p21 deletions: Abnormal cells aneploid events: Total cells analyzed: 26 Hematuria: Gross Description Site ID:A color Yellow fixative Alcohol Received 100 mls of clear yellow fluid with the patient's name and, Bladder Wash on the vial. Electronically signed by : on: 04/28/2024 08:58:54 Performed By: #### 1 [id number] #### [facility] [address] [place] [address] Ambulatory Visit Summaryon 0 04-20-2024 Ambulatory Visit Summary Ambulatory Visit Summary DARIAN DUENAS :1955 Visit Date:04/20/2024 Ambulatory Visit Instructions Your Diagnosis History of bladder cancer Erectile dysfunction Your Care Team Attending Physician - BARB RAMIREZ, Tonia Vasquez Primary Care Physician - CATRACHO WILLIS MD This Is Your Medications List ciprofloxacin (Cipro 500 mg Tab) oxybutynin (oxybutynin 5 mg Tab) tadalafil (tadalafil 10 mg Tab) Procedures Performed Cystoscopy (04/20/2024), Cystoscopy (01/06/2024), Flexible cystoscope (09/30/2023), Flexible cystoscope (09/30/2023), Cystoscopy [...] (Peripheral) 80 Respiratory Rate 16 Blood Pressure 150/78 Height 182 cm Height 72 in Weight 85 kg Weight 187.393 lb BMI 25.66 What to do next You Need to Schedule the Following Appointments Follow Up with BARB RAMIREZ, ADAM Aranda When: Where: [facility] [address], [place] [address]- Medications What How Much When Instructions Unchanged ciprofloxacin (Cipro 500 mg Tab) 1 Tablets By Mouth Every day Take 1 tablet the day before the procedure and 1 tablet after the procedure Unchanged oxybutynin (oxybutynin 5 mg Tab) 1 Tablets By Mouth At bedtime Duration: 30 Days Unchanged tadalafil (tadalafil 10 mg Tab) 1 Tablets By Mouth Every day as needed for for erectile dysfunction Take 1-2 pills by mouth, 1 hour prior to sexual relations. Medications and Immunizations Administered Given lidocaine Top 2% Gel w/Appl 6 mL, 6 mL, Topical. For: History of bladder cancer, Erectile dysfunction Allergies No Known Allergies Problems Ongoing - Any problem that you are currently receiving treatment for. Bladder cancer BPH (benign prostatic hyperplasia) Elevated PSA Erectile dysfunction Family history of prostate cancer History of bladder cancer Impotence Kidney stone Nocturia Proteinuria Smoker Split urinary stream Urinary urgency Patient Survey You may receive a survey via text or e-mail asking about your office visit. Please share your experience with us by completing your survey. We appreciate your feedback and thank you for choosing us for your care. Education Materials Cancer Screening for Males A cancer screening is a test or exam that checks for cancer. Work with your health care provider to create a cancer screening schedule that protects your health. Who should have screening? All people who are male should be considered for screening of certain cancers, including colorectal cancer, prostate cancer, lung cancer, and skin cancer. Your health care provider may recommend screenings for other types of cancer if: ??? You have had cancer before. ??? You have a family member with cancer. ??? You have genes that could increase the risk of cancer. ??? You have risk factors for certain cancers, such as current or past use of tobacco products or being overweight. What are the benefits of screening? Cancer screening is done to look for cancer in the very early stages, before it spreads and becomes harder to treat and before you would start to notice symptoms. Finding cancer early improves the chances of successful treatment. It may save your life. When should I be screened for cancer? When you should be screened for cancer depends on: ??? Your age. ??? Your medical history and your family's medical history. ??? Certain lifestyle factors, such as smoking or other use of tobacco products. ??? Environmental exposure, such as to asbestos. How is screening done? Colorectal cancer Colorectal cancer screening looks for cancer or for growths called polyps that often form before cancer starts. Tests to look for cancer or polyps include: ??? Colonoscopy or flexible sigmoidoscopy. For these procedures, a flexible tube with a small camera is inserted into the rectum. ??? CT colonography. This test uses X-rays and a contrast dye to check the colon for polyps. Tests to look for cancer in the stool (feces) include: ??? Guaiac-based fecal occult blood test (FOBT). This test can find blood in stool. It can be done at home with a kit. ??? Fecal immunochemical test (FIT). This test can find blood in stool. For this test, you will need to collect stool samples at home. ??? Stool DNA test. This test looks for blood in stool and any changes in DNA that can lead to colon cancer. For this test, you will need to collect a stool sample at home and send it to a lab. All adults should have screenings starting at 45 years old and co (more content not included)... Normal [facility] UroVysion Fish and Urine Cyt o ( Labs)on 04-20-2024 [facility] Method of Extraction Bladder Wash Normal [facility] Comment on above: Performed By: #### 1 [id number] #### [facility] [address] [place] [address] [facility] Number of Jars 1 Invalid Interpretation Code [facility] Comment on above: Performed By: #### 1 [id number] #### [facility] [address] [place] [address] [facility] Specimen Bladder Wash Normal [facility] Comment on above: Performed By: #### 1 [id number] #### [facility] [address] [place] [address] [facility] Type of Service Technical Only Normal [facility] Comment on above: Performed By: #### 1 [id number] #### [facility] [address] [place] [address] Urology Office/Clinic Noteon 04-20-2024 Urology Office/Clinic Note Urology Office/Clinic Note Chief Complaint Cysto HPI Staff Cysto ABX TAKEN, need fish/cytol History of Present Illness Tests reviewed: I have reviewed the previous health record [...] & Measurements HR: 80(Peripheral) RR: 16 BP: 150/78 HT: 72 in HT: 182 cm WT: 85 kg WT: 187.393 lb BMI: 25.66 General Appearance: alert, no distress, well nourished, [...] Urethra is: Normal The Prostatic Urethra is: _Bilobar obstruction. The Bladder: _No tumors or stones. Mild red streaking diffusely, presumedly BCG effect. Trabeculated: Mild (1) The Ureteral orifices: Show efflux of clear urine Specimens Removed: Bladder wash sent for FISH and Cytology test Removal: Cystoscope is removed. The patient tolerated it well. Postoperative Information Patient is discharged home with antibiotic coverage. Follow up arranged. Assessment/Plan 1. History of bladder cancer (Z85.51: Personal history of malignant neoplasm of bladder) Original TURBT 07/18/22 - Invasive high grade urothelial carcinoma. Invasive into LP. Muscle present and uninvolved. BCG #6/6 10/22/22. TURBT 01/09/23 - Neg. Bladder mucosa with chronic inflammation, reactive changes and calcifications. Path sent for second opinion at [facility] - Neg. Benign urothelial mucosa with LP edema, mild chronic inflammation, and heterotopic calcification. Repeat TURBT 02/20/23 - Neg. Urothelial mucosa with acute inflammation and focal urothelial cytologic atypia. Muscle present and neg. Definitive evidence of residual high grade papillary urothelial carcinoma is not seen. BCG #3/3 05/13/23. BCG #3/3 11/20/23. Pt had 3 mo IO cysto to check for bladder tumor recurrence without complications today. Pt took prophylactic abx prior to procedure. Will send bladder wash specimen for FISH/cytol and call pt if positive. Follow up 3 mos surveillance cysto/bt ck/FISH/cytol or sooner if needed. Pt understands and agrees with plan. -Schedule BCG x 3 to be done w/in next 2 mos. 2. Erectile dysfunction (N52.9: Male erectile dysfunction, unspecified) Tadalafil 10 mg prn. Follow-up With When Contact Information BARB RAMIREZ, Tonia Vasquez, [facility] [address], [place] [address]- Additional Instructions: Schedule BCG x 3 to be done w/in next 2 mos then 3 mo cysto Patient Education Cancer Screening for Males I, Betzaida David, personally scribed for Dr. Devries on 04/20/2024 15:00:52. . Documentation recorded by the scribe, Betzaida David, accurately reflects the services(s) I performed and decisions made by me. Authenticated by Dr. Devries on 04/20/2024 15:04:40. Problem List/Past Medical History Ongoing Bladder cancer BPH (benign prostatic hyperplasia) Elevated PSA Erectile dysfunction Family history of prostate cancer History of bladder cancer Impotence Kidney stone Nocturia Proteinuria Smoker Split urinary stream Urinary urgency Historical No qualifying data Procedure/Surgical History Cystoscopy (04/20/2024), Cystoscopy (01/06/2024), Flexible cystoscope (09/30/2023), Flexible cystoscope (09/30/2023), Cystoscopy [...] Tab, 500 mg= 1 tab(s), Oral, Daily oxybutynin 5 mg Tab, 5 mg= 1 tab(s), Oral, Bedtime, 11 refills tadal (more content not included)... Normal [facility] Comment on above: Result Comment: Elec tronically Signed By: Tonia DEVRIES MD\.br\Date and Time Signed: 04/20/24 15:04 EST\.br\Electronically Co-Signed By: Betzaida David\.br\Date and Time Co-Signed: 04/20/24 15:01 EST Reminderson 03-30-2024 Reminders Reminders - From: Zee Briones To: [facility] - Recalls Barb; Sent: 11/21/2023 10:53:49 EDT Show up: 01/23/2024 10:53:00 EDT Subject: cysto/fish/cytol Due Date/Time: 02/16/2024 10:53:00 EST Reminder/Recall Patient due in Mar 2024 for 3 month cysto/fish/cytol (bt ck) Spoke to ptpiter for 04/20/24 in [place] office.LG Normal [facility] UroVysion Fish and Urine Cyt o ([facility])on 01-12-2024 UVFISH & UC Diagnosis Info Invalid Interpretation Code [facility] Comment on above: Result Comment: A:Ur ine,Bladder Wash:Bladder Wash Interpretation - Atypical urothelial cells; favor reactive process. Interpretation - The UroVysion FISH study detected normal copy numbers for chromosomes 3, 7, 17, and 9p21. 200 cells were analyzed in this evaluation. No evidence of aneuploidy for chromosomes 3, 7, or 17 or deletion of the 9p21 locus was found in cells present in this specimen. This test does not rule out the possibility of a low grade non-invasive papillary urothelial carcinoma. These findings should be correlated with cytology and cystoscopy results. * CPT: 21738, 71836. MicroScopic Description - MicroScopic Description - Electronically signed by : on: 01/12/2024 13:43:52 Performed By: #### 1 [id number] #### [facility] [address] [id number] UroVysion Fish and Urine Cyt o ( Labs)on 01-06-2024 [facility] Method of Extraction Bladder Wash Normal [facility] Comment on above: Performed By: #### 1 [id number] #### [facility] [address] [place] [address] [facility] Number of Jars 1 Invalid Interpretation Code [facility] Comment on above: Performed By: #### 1 [id number] #### [facility] [address] [place] [address] [facility] Specimen Bladder Wash Normal [facility] Comment on above: Performed By: #### 1 [id number] #### [facility] [address] [place] [address] [facility] Type of Service Technical Only Normal [facility] Comment on above: Performed By: #### 1 [id number] #### [facility] [address] [place] [id number] Urology Office/Clinic Noteon 01-06-2024 Urology Office/Clinic Note Urology Office/Clinic Note Chief Complaint Patient is here for Cysto. HPI Staff Cysto ABX TAKEN, need fish/cytol History of Present Illness Tests reviewed: I have reviewed the previous health record [...] HPI. Physical Exam Vitals & Measurements HR: 72(Peripheral) RR: 16 BP: 175/93 HT: 72 in HT: 182 cm WT: 85 kg WT: 187 lb BMI: 25.66 General Appearance: alert, no distress, well nourished, [...] Urethra is: Normal The Prostatic Urethra is: _Bilobar obstruction. The Bladder: _No tumors or stones, Mild red streaking diffusely, presumedly BCG effect. Trabeculated: Mild (1) The Ureteral orifices: Show efflux of clear urine Specimens Removed: Bladder wash sent for FISH and Cytology test Removal: Cystoscope is removed. The patient tolerated it well. Postoperative Information Patient is discharged home with antibiotic coverage. Follow up arranged. Assessment/Plan 1. History of bladder cancer (Z85.51: Personal history of malignant neoplasm of bladder) Original TURBT 07/18/22 - Invasive high grade urothelial carcinoma. Invasive into LP. Muscle present and uninvolved. BCG #6/6 10/22/22. TURBT 01/09/23 - Neg. Bladder mucosa with chronic inflammation, reactive changes and calcifications. Path sent for second opinion at [facility] - Neg. Benign urothelial mucosa with LP edema, mild chronic inflammation, and heterotopic calcification. Repeat TURBT 02/20/23 - Neg. Urothelial mucosa with acute inflammation and focal urothelial cytologic atypia. Muscle present and neg. Definitive evidence of residual high grade papillary urothelial carcinoma is not seen. BCG #3/3 05/13/23. BCG #3/3 11/20/23. Pt had IO cysto to check for bladder tumor recurrence without complications today. Pt took prophylactic abx prior to procedure. Will send bladder wash specimen for FISH/cytol and call pt if positive. Follow up 3 mos surveillance cysto/bt ck/FISH/cytol or sooner if needed. Pt understands and agrees with plan. 2. Erectile dysfunction (N52.9: Male erectile dysfunction, unspecified) Tadalafil 10 mg prn. Difficulty achieving and maintaining erection. Educated pt on the cause of ED. Pt inquired about more homeopathic/experime ntal options for ED so he can avoid taking traditional oral meds. Recommended sticking to traditional approved therapies. Not interested in trying any other therapies at this time. Follow-up With When Contact Information BARB RAMIREZ, Tonia Vasquez, URL [facility] [address], [place] [address]- Additional Instructions: 3 mos surveillance cysto/bt ck/FISH/cytol Patient Education Erectile Dysfunction Cancer Screening for Males I, Betzaida David, personally scribed for Dr. Devries on 01/06/2024 14:20:29. . Documentation recorded by the scribe, Betzaida David, accurately reflects the services(s) I performed and decisions made by me. Authenticated by Dr. Devries on 01/06/2024 14:23:17. Problem List/Past Medical History Ongoing Bladder cancer BPH (benign prostatic hyperplasia) Elevated PSA Erectile dysfunction Family history of prostate cancer History of bladder cancer Impotence Kidney stone Nocturia Proteinuria Split urinary stream Urinary urgency Historical No qualifying data Procedure/Surgical History Cystoscopy (01/06/2024), Flexible cystoscope (09/30/2023), Flexible cystoscope (09/30/2023), Cystoscopy (06/24/2023), TURBT - Transurethral resection of bladder tumor (02/20/2023), TURBT - Transurethral resection of bladder tumor (01/09/2023), (more content not included)... Normal [facility] Comment on above: Result Comment: Elec tronically Signed By: Tonia DEVRIES MD\.br\Date and Time Signed: 01/06/24 14:23 EDT\.br\Electronically Co-Signed By: Betzaida David\.br\Date and Time Co-Signed: 01/06/24 14:20 EDT\.br\Electronically Co-Signed By: Betzaida David\.br\Date and Time Co-Signed: 01/06/24 14:21 EDT ALL CBC WITH AUTO DIFFon BASOPHILS ABSOLUTE AUTO 0.0 [facility] Basophils/100 WBC (Bld) 0.1 % Low 0.2 - 2.0 % [facility] Eosinophils/100 WBC (Bld) 0.1 % Low 0.9 - 7.0 % [facility] Erythrocyte distribution width (RBC) [Ratio] 13.1 % 11.0 - 15.0 % [facility] Hematocrit (Bld) [Volume fraction] 48.8 % 42.0 - 54.0 % [facility] (Bld[facility] [Mass/Vol] 16.0 g/dL 14.0 - 18.0 g/dL [facility] IMMATURE GRANULOCYTES ABS AUTO 0.03 [facility] Immature granulocytes/100 WBC (Bld) 0.4 % 0.0 - 0.5 % [facility] Interpretation and review of laboratory results Abnormal [facility] LYMPHOCYTES ABSOLUTE AUTO 1.9 [facility] Lymphocytes/100 WBC (Bld) 26.1 % 20.5 - 60.0 % [facility] MCH (RBC) [Entitic mass] 30.9 pg 25.9 - 34.0 pg [facility] MCHC (RBC) [Mass/Vol] 32.8 g/dL 29.9 - 35.2 g/dL [facility] MCV (RBC) [Entitic vol] 94.4 fL High 80.0 - 94.0 fL [facility] MONOCYTES ABSOLUTE [facility]O [facility].6 [facility] Monocytes/100 WBC (Bld) 7.9 % 1.7 - 12.0 % [facility] NEUTROPHILS ABSOLUTE AUTO 4.7 [facility] Neutrophils/100 WBC (Bld) 65.4 % 43.0 - 75.0 % [facility] Platelet mean volume (Bld) [Entitic vol] 10.4 fL 9.5 - 13.5 fL [facility] EO # 0.0 [facility] PLT 243 [facility] RBC 5.17 [facility] WBC 7.1 [facility] Reminderson 11-21-2023 Reminders Reminders - From: Zee Briones To: [facility] - Recalls Devries; Cc: Zee Briones; Sent: 05/13/2023 09:52:37 EST Show up: 08/23/2023 09:52:00 EDT Subject: cysto/fish/cytol Due Date/Time: 09/08/2023 09:52:00 EDT Reminder/Recall Patient is due in September 2023 for 3 month cysto/fish/cytol Patient sched for 09/30/23 in [place] [facility] Patient will be due in Dec 2023 for 3 mo cysto/fish./cytol (3 mo bt ck) Patient sched for 01/06/24 in [facility]. [place].[facility] Normal [facility] Urology Office/Clinic Noteon 11-20-2023 Urology Office/Clinic Note [...] BCG today due to national shortage. EORTC 68324 trial showed no difference between 1/3 dose and full-dose BCG in patients with high-risk disease. Pt is aware of the reasoning and is amenable to proceed as discussed. -Schedule surveillance cysto for 12/2023 Follow-up With When Contact Information BARB RAMIREZ, Tonia Vasquez, URL [facility] [address] , [place] [phone] Additional Instructions: sched surveillance cysto 12/2023 Patient [...] refusal BCG (more content not included)... Normal [facility] Comment on above: Result Comment: Elec tronically Signed By: ETHAN VILLALTA, YAHAIRA Hallman\.br\Date and Time Signed: 11/20/23 15:07 EDT\.br\Electronically Co-Signed [...] PA-C Where: [facility] [address] [place] [address]- You Need to Schedule the Following Appointments Follow Up with YAHAIRA LONG PA-C, URL When: Comments: BCG #3 of 3 in 1 week Where: [address] [place] [address] Medications What How Much When [...] to collect (more content not included)... Normal [facility] Urology Office/Clinic Noteon 11-13-2023 Urology [...] for two hours, turning every fifteen minutes 03/27 turn to allow coating of the bladder [...] BCG today due to national shortage. EORTC 28900 trial showed no difference between 1/3 dose and full-dose BCG in patients with high-risk disease. Pt is aware of the reasoning and is amenable to proceed as discussed. -BCG #3 of 3 half dose in 1 week -Cysto in 3 mos, after BCG treatment Follow-up With When Contact Information ETHAN VILLALTA, YAHAIRA Hallman, URL [address] [place] [address] Additional Instructions: BCG #3 of 3 in 1 week Patient Education Cancer Screening for Men Documentation recorded by the scribe Absity White accurately reflects the services(s) I performed and decisions made by me. Authenticated by Yahaira Long PA-C on 11/13/2023 15:04:58. Zheng Smallwood, personally scribed for Yahaira Long PA-C on [...] concerns: No. (more content not included)... Normal [facility] Comment on above: Result Comment: Elec tronically Signed By: YAHAIRA LONG PA-C\.br\Date and Time Signed: 11/13/23 15:05 EDT\.br\Electronically Co-Signed By: Zheng Greenwood\.br\Date and Time Co-Signed: 11/13/23 14:47 EDT Ambulatory Visit Summaryon 0 8-15-2024 Ambulatory Visit Summary Ambulatory Visit Summary DARIAN [...] YAHAIRA LONG PA-C Where: [facility] of [address] [address] 2023 2:20 PM EDT With: YAHAIRA LONG PA-C Where: [facility] of [address] [address]- You Need to Schedule the Following Appointments Follow Up with YAHAIRA LONG PA-C, URL When: Comments: 1 week for BCG #2 of 3 half dose Where: [address] [place] [address] Medications What How Much When [...] or concerns Medications and Immunizations Administered Given Welaka BCG Live (for intravesical use), 25 mg, [...] A cyst (more content not included)... Normal [facility] Urology Office/Clinic Noteon 11-06-2023 Urology Office/Clinic Note [...] BCG today due to national shortage. EORTC 77349 trial showed no difference between 1/3 dose and full-dose BCG in patients with high-risk disease. Pt is aware of the reasoning and is amenable to proceed as discussed. -BCG #2 of 3 half dose in 1 week -Cysto in 3 mos, after BCG treatment Follow-up With When Contact Information ETHAN PA-YAHAIRA Giraldo, URL [address] [place] [address] Additional Instructions: 1 week for BCG #2 of 3 half dose Patient Education Bladder Cancer Documentation recorded by the scriblexx Greenwood accurately reflects the services(s) I performed [...] (US) zabrina (more content not included)... Normal [facility] Comment on above: Result Comment: Elec tronically Signed By: YAHAIRA LONG PA-C\.br\Date and Time Signed: 11/06/23 14:53 EDT\.br\Electronically Co-Signed By: Zheng Greenwood\.br\Date and Time Co-Signed: 11/06/23 14:52 EDT UroVysion Fish and Urine Cyt o ([facility])on 10-06-2023 UVFISH & UC Diagnosis Info Invalid Interpretation Code [facility] Comment on above: Result Comment: A:Ur [...] on: 10/06/2023 17:48:05 Performed By: #### 1 [id number] #### [facility] [address] [place] [address] Ambulatory Visit Summaryon 0 09-30-2023 Ambulatory Visit Summary Ambulatory Visit Summary DARIAN DUENAS Maury :1955 Visit Date:09/30/2023 Ambulatory Visit Instructions Your [...] When: Where: [facility] [address], [place] [phone] Medications What How Much When Instructions Unchanged [...] for blood (more content not included)... Normal [facility] UroVysion Fish and Urine Cyt o ( Labs)on 09-30-2023 UVUC Method of Extraction Bladder Wash Normal [facility] Comment on above: Performed By: #### 1 [id number] #### [facility] [address] [place] [address] [facility] Number of Jars 1 Invalid Interpretation Code [facility] Comment on above: Performed By: #### 1 [id number] #### [facility] [address] [place] [address] [facility] Specimen Bladder Wash Normal [facility] Comment on above: Performed By: #### 1 [id number] #### [facility] [address] [place] [address] [facility] Type of Service Global Normal [facility] Comment on above: Performed By: #### 1 [id number] #### [facility] [address] [place] [address] Urology Office/Clinic Noteon 09-30-2023 Urology Office/Clinic Note [...] [facility] [address], [place] [phone] Additional Instructions: schedule 3 BCGs, cyst in 3 mos Patient Education Cancer Screening for Men Lisset Smallwood, personally scribed for Dr. Devries on 09/30/2023 14:13:09. . Documentation recorded by the scribeLisset, accurately [...] of knee (more content not included)... Normal [facility] Comment on above: Result Comment: Elec tronically Signed By: BARB RAMIREZ, Tonia R\.br\Date and Time Signed: 09/30/23 14:15 EDT\.br\Electronically Co-Signed By: Lisset Paul\.br\Date and Time Co-Signed: 09/30/23 14:13 EDT UroVysion Fish and Urine Cyt o ([facility])on 06-30-2023 UVFISH & UC Diagnosis Info Invalid Interpretation Code [facility] Comment on above: Result Comment: A:Ur [...] correlated with cytology and cystoscopy results.* CPT 52589, 53824 Microscopic Notes - Microscopic Notes - Abnormal cells 9p21 deletions: Abnormal cells aneploid events: Total cells analyzed: 93 Hematuria: Gross Description Site ID:A color Yellow fixative Alcohol Received 100 mls of clear yellow fluid with the patient's name and, Bladder Wash on the vial. Electronically signed by : on: 06/30/2023 12:01:35 Performed By: #### 1 [id number] ####[facility] [address] [place] [address] Consent for Procedure/Surger vondaadam 06-25-2023 Consent for Procedure/Surgery [id number]# [id number] Normal [facility] Ambulatory Visit Summaryon 0 06-24-2023 [...] URL When: Where: [facility] [address] [place] [phone] Medications What How Much When Instructions Unchanged [...] Prostate canc (more content not included)... Normal [facility] Patient Educationon 06-24-19 Patient Education Oncology Cancer [...] if anything looks unusual. Men with a pmvqbd-loso-dmrrjb risk for skin cancer may want to see a dinkey skinner (site technician) for an annual body check. What are the benefits of screening? Cancer screening is done to look for cancer in the very early stages, before it spreads and becomes harder to treat and before you would start to notice symptoms. Finding cancer early improves the chances of successful treatment. It ma (more content not included)... Normal [facility] UroVysion Fish and Urine Cyt o ([facility])on 06-24-2023 [facility] Method of Extraction Bladder Wash Normal [facility] Comment on above: Performed By: #### 1 [id number] ####[facility] [address] [place] [address] [facility] Number of Jars 1 Invalid Interpretation Code [facility] Comment on above: Performed By: #### 1 [id number] ####[facility] [address] [place] [address] [facility] Specimen Bladder Wash Normal [facility] Comment on above: Performed By: #### 1 [id number] ####[facility] [address] [place] [address] [facility] Type of Service Technical Only Normal [facility] Comment on above: Performed By: #### 1 [id number] ####[facility] [address] [place] [address] Urology Office/Clinic Noteon 06-24-2023 Urology Office/Clinic Note [...] [facility] [address], [place] [phone] Additional Instructions: 3 mos for cysto Patient [...] - Transurethra (more content not included)... Normal [facility] Comment on above: Result Comment: [...] RAMIREZ, Tonia Vasquez Where: [facility] [place] Normal [facility] Patient Educationon 05-13-19 Patient Education Oncology Bladder [...] Follow these instructions at home: ? Take xxbx-zjv-rizixar and prescription medicines only as told by [...] important. Where to find more information ? [place] [employer] (ACS): cancer.org ? National Cancer [place] (NCI): cancer.gov Contact a health care provider [...] wi (more content not included)... Normal [facility] Urology Office/Clinic Noteon 05-13-2023 Urology [...] E&M of Est. Patient Moderate 30-39 Min 83999 2. Urinary urgency (R39.15: Urgency of urination) [...] E&M of Est. Patient Moderate 30-39 Min 78337 Urnls Dip Stick Auto w/o Microscopy POC 27843 Follow-up With When Contact Information [facility] [address] [place] [address] Business (1) Additional Instructions: for procedure [...] History Toba (more content not included)... Normal [facility] Comment on above: Result Comment: [...] YAHAIRA LONG PA-C Where: [facility] Patient Educationon 05-05-19 Patient Education [...] not available, use an alcohol based hand stock control clerk that contains at least 60% alcohol. Have [...] long y (more content not included)... Normal [facility] Urology Office/Clinic Noteon 05-05-2023 Urology Office/Clinic [...] [facility] [address], [place] [phone] Additional Instructions: BCG #3/3 on 05/13/23 Patient [...] tumor (07/18/2022), (more content not included)... Normal [facility] Comment on above: Result Comment: [...] MD Where: [facility] Normal [address] [place] [address] [place] [address]- \.br\ You Need to Schedule the Following Appointments\.br \ Follow Up with Tonia DEVRIES MD, URL When: \.br\ Comments:\.br\ f/u scheduled 05/05/23 for BCG #2/3\.br\ Where:\.br\ [facility] [address] [place]\.br\ [place] [address]-\.br\ [phone]\.br\ Medications\.br\ What How Much When Instructions\.br \ Unchanged mirabegron (Myrbetriq 50 mg oral tablet, extended release) 1 Tablets By Mouth Every day\.br\ Unchanged tadalafil (tadalafil 10 mg Tab) 1 Tablets By Mouth Every day as needed for for erectile dysfunction Take 1-2 pills by mouth, 1 hour prior to sexual relations. \.br\ Medications and Immunizations Administered\.br \ Given\.br\ Rhonda BCG Live (for intravesical use), 50 mg, IntraVesical. For: Bladder cancer\.br\ BCG, IntraVesical\.br \ Allergies\.br\ No Known Allergies\.br\ Problems\.br\ Ongoing - Any problem that you are currently receiving treatment for.\.br\ Bladder cancer\.br\ BPH (benign prostatic hyperplasia)\.br \ Elevated PSA\.br\ Family history of prostate cancer\.br\ Impotence\.br\ Kidney stone\.br\ Nocturia\.br\ Proteinuria\.br\ Split urinary stream\.br\ Patient Survey\.br\ You may receive a survey via text or e-mail asking about your office visit. Please share your experience with us by completing your survey. We appreciate your feedback and thank you for choosing us for your care.\.br\ Education Materials\.br\ Chemotherapy\.br \ Chemotherapy is a cancer treatment. It uses medicines to slow down or stop the growth of cancer. You may have chemotherapy to:\.br\ ? \.br\ Cure your cancer.\.br\ ? \.br\ Prevent the cancer from growing or spreading (metastasizing). \.br\ ? \.br\ Ease symptoms and improve your [...] ? \.br\ How you respond to the chemotherapy.\.b r\ ? \.br\ Your side effects.\.br\ What are [...] or capsule.\.br\ ? \.br\ As a shot (injection).\.br \ ? \.br\ As a skin (topical) cream.\.br\ ? \.br\ As a special wafer that is put in your body where the cancer is. The wafer contains chemotherapy medicine.\.br\ ? \.br\ As an injection into the cerebrospinal fluid (CSF) in the brain or spinal cord (intraventricula r or intrathecal chemotherapy).\. br\ ? \.br\ As an installation into the [...] changes.\.br\ Follow these instructions at home:\.br\ General instructions\.br \ \.br\ ? \.br\ If you get chemotherapy through an IV, PICC line, or port, check the site every day for signs of infection. Check for redness, swelling, pain, fluid, or warmth.\.br\ ? \.br\ Wash your hands frequently with soap and water. Scrub your hands for at least 20 seconds. If soap and water are not available, use an alcohol based hand stock control clerk that contains at least 60% alcohol. Have [...] care provider how long you should take precautions.\.br \ ? \.br\ Practice good bathroom hygiene:\.br\ ? \.br\ If possible, use a toilet separate from others in the household.\.br\ ? \.br\ Always sit when using the toilet. Close the toilet seat lid before you flush.\.br\ ? \.br\ Wash your hands lindy [facility] Patient Educationon 04-28-19 24 Patient Education Oncology Chemotherapy Chemotherapy is [...] not available, use an alcohol based hand stock control clerk that contains at least 60% alcohol. Have [...] y (more content not included)... Normal [facility] Urology Office/Clinic Noteon 04-28-2023 Urology [...] [facility] [address], [place] [phone] Additional Instructions: f/u scheduled 05/05/23 for BCG [...] Cystoscopy ( (more content not included)... Normal [facility] Comment on above: Result Comment: Elec tronically Signed By: BARB RAMIREZ, Tonia Vasquez\.br\Date and Time Signed: 04/28/23 09:24 EST\.br\Electronically Co-Signed By: Lisset Paul\.br\Date and Time Co-Signed: 04/28/23 09:19 EST COVID + FLU Quick Testingon 03-28-2023 SARS-CoV-2 (COVID-19) RNA VIC+probe Ql (Unsp spec) Positive [facility] [employer] Other COVID + FLU Quick Testing Negative [employer] [facility] [employer] Other CBC AUTO DIFFon 07-17-2022 BASO # 0.0 103/ul Normal 0.0-0.1 [facility] Comment on above: Performed By: #### C BC #### [facility] [address] [address] [address] Viktoria Nuñez Basophils/100 WBC (Bld) 0.3 % Normal 0.2-2.0 [facility] Comment on above: Performed By: #### C BC #### [facility] [address] [address] [address] Viktoria Nuñez EO # 0.0 103/ul Normal 0.0-0.7 [facility] Comment on above: Performed By: #### C BC #### [facility] [address] [address] [address] Viktoria Nuñez Eosinophils/100 WBC (Bld) 0.0 % Critically low 0.9-7.0 [facility] Comment on above: Performed By: #### C BC #### [facility] [address] [place] [address] Dr. Viktoria Nuñez Erythrocyte distribution width (RBC) [Ratio] 13.2 % Normal 11.0-15.0 [facility] Comment on above: Performed By: #### C BC #### [facility] [address] [place] [address] Dr. Viktoria Nuñez Hematocrit (Bld) [Volume fraction] 47.3 % Normal 42.0-54.0 [facility] Comment on above: Performed By: #### C BC #### [facility] [address] [place] [address] Dr. Viktoria Nuñez Hemoglobin (Bld) [Mass/Vol] 15.7 g/dL Normal 14.0-18.0 [facility] Comment on above: Performed By: #### C BC #### [facility] [address] [place] [address] Dr. Viktoria Nuñez IG # 0.03 10e3/ul Normal 0.00-0.03 [facility] Comment on above: Performed By: #### C BC #### [facility] [address] [place] [address] Dr. Viktoria Nuñez IG % 0.4 % Normal 0.0-0.5 [facility] Comment on above: Performed By: #### C BC #### [facility] [address] [place] [address] Dr. Viktoria Nuñez LYMPH # 1.4 103/ul Normal 1.2-3.8 [facility] Comment on above: Performed By: #### C BC #### [facility] [address] [place] [address] Dr. Viktoria Nuñez Lymphocytes/100 WBC (Bld) 18.6 % Critically low 20.5-60.0 [facility] Comment on above: Performed By: #### C BC #### [facility] [address] [place] [address] Dr. Viktoria Nuñez MANUAL DIFF REQ NO Normal [facility] Comment on above: Performed By: #### C BC #### [facility] [address] [place] [address] Dr. Viktoria Nuñez MCH (RBC) [Entitic mass] 30.7 pg Normal 25.9-34.0 [facility] Comment on above: Performed By: #### C BC #### [facility] [address] [place] [address] Dr. Viktoria Nuñez MCHC (RBC) [Mass/Vol] 33.2 g/dL Normal 29.9-35.2 [facility] Comment on above: Performed By: #### C BC #### [facility] [address] [place] [address] Dr. Viktoria Nuñez MCV (RBC) [Entitic vol] 92.4 fL Normal 80.0-94.0 [facility] Comment on above: Performed By: #### C BC #### [facility] [address] [place] [address] Dr. Viktoria Nuñez MONO # 0.6 103/ul Normal 0.3-0.8 [facility] [facility] Comment on above: Performed By: #### C BC #### [facility] [address] [place] [address] Dr. Viktoria Nuñez Monocytes/100 WBC (Bld) 7.6 % Normal 1.7-12.0 [facility] Comment on above: Performed By: #### C BC #### [facility] [address] [place] [address] Dr. Viktoria Nuñez NEUT # 5.4 103/ul Normal 1.4-6.5 [facility] Comment on above: Performed By: #### C BC #### [facility] [address] [place] [address] Dr. Viktoria Nuñez Neutrophils/100 WBC (Bld) 73.1 % Normal 43.0-75.0 [facility] Comment on above: Performed By: #### C BC #### [facility] [address] [place] [address] Dr. Viktoria Nuñez Platelet mean volume (Bld) [Entitic vol] 10.1 fL Normal 9.5-13.5 [facility] Comment on above: Performed By: #### C BC #### [facility] [address] [place], [place] [id number] Dr. Viktoria Nuñez PLT 235 103/ul Normal 150-450 [facility] Comment on above: Performed By: #### C BC #### [facility] [address] [place] [address] Dr. Viktoria Nuñez RBC 5.12 106/ul Normal 4.70-6.10 [facility] Comment on above: Performed By: #### C BC #### [facility] [address] [place] [address] Dr. Viktoria Nuñez WBC 7.4 103/ul Normal 4.0-11.0 [facility] Comment on above: Performed By: #### C BC #### [facility] [address] [place] [address] Dr. Viktoria Nuñez PROF CHEM 8 (BAS METB)on Anion gap [Moles/Vol] 12.2 mmol/L Normal [facility] Comment on above: Performed By: #### B MP #### [facility] [address] [place] [address] Dr. Viktoria Nuñez Calcium [Mass/Vol] 9.6 mg/dL Normal 8.5-10.1 [facility] Comment on above: Performed By: #### B MP #### [facility] [address] [place] [address] Dr. Viktoria Nuñez Chloride [Moles/Vol] 107 mmol/L Normal 98-107 [facility] Comment on above: Performed By: #### B MP #### [facility] [address] [place] [address] Dr. Viktoria Nuñez CO2 [Moles/Vol] 27.9 mmol/L Normal 21.0-32.0 [facility] Comment on above: Performed By: #### B MP #### [facility] [address] [place] [address] Dr. Viktoria Nuñez Creatinine [Mass/Vol] 1.15 mg/dL Normal 0.70-1.30 [facility] Comment on above: Performed By: #### B MP #### [facility] [address] [place] [address] Dr. Viktoria Nuñez EGFR-AF ALGERIAN >60 Normal >=60 [facility] Comment on above: Performed By: #### B MP #### [facility] [address] [address] [address] Viktoria Nuñez EGFR-NON AF ALGERIAN >60 Normal >=60 [facility] Comment on above: Performed By: #### B MP #### [facility] [address] [address] [address] Viktoria Nuñez Glucose [Mass/Vol] 110 mg/dL Critically high 74-106 [facility] Comment on above: Performed By: #### B MP #### [facility] [address] [address] [address] Viktoria Nuñez Potassium [Moles/Vol] 4.1 mmol/L Normal 3.5-5.1 [facility] Comment on above: Performed By: #### B MP #### [facility] [address] [address] [address] Viktoria Nuñez Sodium [Moles/Vol] 143 mmol/L Normal 136-145 [facility] Comment on above: Performed By: #### B MP #### [facility] [address] [address] [address] Viktoria Nuñez Urea nitrogen [Mass/Vol] 20.0 mg/dL Critically high 7.0-18.0 [facility] Comment on above: Performed By: #### B MP #### [facility] [address] [address] [address] Viktoria Nuñez Urea nitrogen/Creatini ne [Mass ratio] 17.4 mg/mg Normal [facility] Comment on above: Performed By: #### B MP #### [facility] [address] [address] [address] Viktoria Nuñez PROTIMEon 07-17-2022 INR Coag (PPP) [Relative time] 1.03 {INR} Normal [facility] Comment on above: Performed By: #### P T, PTT #### [facility] [address] [address] [address] Viktoria Nuñez INR GUIDELINES SEE BELOW Normal [facility] Comment on above: Result Comment: RODDY RED INR: 2.0 - 3.0 CONDITIONS NOT LISTED BELOW 2.5 - 3.5 FOR PROSTHETIC HEART VALVE REPLACEMENT 2.5 - 3.5 RECURRENT THROMBOSIS Performed By: #### P T, PTT #### [facility] [address] [place] [address] Dr. Viktoria Nuñez PT Coag (PPP) [Time] 10.9 s Normal 9.0-11.6 [facility] Comment on above: Performed By: #### P T, PTT #### [facility] [address] [place] [address] Dr. Viktoria Nuñez PTTon 07-17-2022 aPTT Coag (Bld) [Time] 28.0 s Normal 22.3-36.2 [facility] Comment on above: Performed By: #### P T, PTT #### [facility] [address] [place] [address] Dr. Viktoria Nuñez CREATININEon 06-27-2022 Creatinine [Mass/Vol] 0.96 mg/dL Normal 0.70-1.30 [facility] Comment on above: Performed By: #### C CHRISTOPHER #### [facility] [address] [place] [address] Dr. Viktoria Nuñez EGFR-AF ALGERIAN >60 Normal >=60 [facility] Comment on above: Performed By: #### C CHRISTOPHER #### [facility] [address] [place] [address] Dr. Viktoria Nuñez EGFR-NON AF ALGERIAN >60 Normal >=60 [facility] Comment on above: Performed By: #### C CHRISTOPHER #### [facility] [address] [place] [address] [address] Viktoria Nuñez CT ABD/PELV WO W [...] by: CLARIBEL COX Date: 2022-06-27 09:55 Normal [facility] XR shoulder RT min 2V*on XR shoulder RT min 2V* [facility] [place] [address] [place] [address] XRay Report Signed Patient: Darian Deunas MR#: [id number] 65 : 1955 Acct:[id number] Age/Sex: 67 / M ADM Date: 06/10/22 Loc: [facility] Room: Type: [facility] Attending Dr: Mickie Cooper MD Copies to: [...] Cristi Dwyer M.D.06/10/2022 8:07 PM Dictation Location: [place] [address] Transcribed By: [facility] 06/10/222006 Dictated By: Cristi Dwyer II, MD 06/10/222002 Signed By: 06/10/222006 [facility] MR lumbar spine wo conon MR lumbar spine wo [facility] [place] [address] MRI Report Signed Patient: Darian Duenas MR#: [id number] 65 : 1955 Acct:[id number] Age/Sex: 66 / M ADM Date: 03/21/22 Loc: [facility] Room: Type: [facility] Attending Dr: Nahid Canchola DO Copies to: [...] Apple Lentz M.D.03/21/2022 3:41 PM Dictation Location: [place] [address] Transcribed By: [facility] 03/21/22 1541 Dictated By: Apple Lentz MD 03/21/22 1531 Signed By: 03/21/22 1541 Normal [facility] XR knee LT 2Von 12-03-2021 XR knee LT 2V [facility] [place] [address] XRay Report Signed Patient: Darian Duenas MR#: [id number] 65 : 1955 Acct:[id number] Age/Sex: 66 / M ADM Date: 12/03/21 Loc: [facility] Room: Type: [facility] Attending Dr: Nahid Canchola DO Copies to: aNhid Canchola DO Ordering Provider: Nahid Canchola DO Date of Service: 12/03/21 XR/XR knee LT 2V: Status post total left knee replacement LEFT KNEE - 2 views CLINICAL HISTORY: Follow-up TKA COMPARISON: 07/05/2021 FINDINGS: No hardware complication. XR/XR knee LT 2V IMPRESSION: NO HARDWARE COMPLICATION. NO ACUTE BONY PROCESS. Impression dictated by: Naun Haywood Jr., D.O.12/03/2021 3:33 PM Dictation Location: [place] [address] Transcribed By: [facility] 12/03/21 1533 Dictated By: Naun Haywood Jr, DO 12/03/21 1533 Signed By: 12/03/21 1533 [facility] XR knee LT 2V [facility] [employer] Other XR knee LT 2V [facility] [employer] Other XR knee LT 2V [address] [place] [address] [employer] Other XR knee LT 2V [address] [employer] Other XR knee LT 2V XRay Report [employer] Other XR knee LT 2V Signed [facility] [employer] Other XR knee LT 2V Patient: Darian Duenas MR#: [id number] [facility] [employer] Other XR knee LT 2V 65 [facility] [employer] Other XR knee LT 2V : 1955 Acct:[id number] [facility] [employer] Other XR knee LT 2V Age/Sex: 66 / M ADM Date: 12/03/21 [facility] [employer] Other XR knee LT 2V Loc: [facility] Room: Type: REG CLI [employer] Other XR knee LT 2V Attending Dr: Nahid Canchola DO [employer] Other XR knee LT 2V Copies to: Nahid Canchola DO [employer] Other XR knee LT 2V Ordering Provider: Nahid Canchola DO [employer] Other XR knee LT 2V Date of Service: 12/03/21 [employer] Other XR knee LT 2V XR/XR knee LT 2V: Status post total left knee replacement [employer] Other XR knee LT 2V LEFT KNEE - 2 views No rt [employer] Other XR knee LT 2V CLINICAL HISTORY: Follow-up TKA [employer] Other XR knee LT 2V COMPARISON: 07/05/2021 [employer] Other XR knee LT 2V FINDINGS: [employer] Other XR knee LT 2V No hardware complication. [employer] Other XR knee LT 2V XR/XR knee LT 2V [employer] Other XR knee LT 2V IMPRESSION: [employer] Other XR knee LT 2V NO HARDWARE COMPLICATION. NO ACUTE BONY PROCESS. [employer] Other XR knee LT 2V Impression dictated by: Naun Haywood Jr., D.ODeedee12/03/2021 3:33 PM [employer] Other XR knee LT 2V Dictation Location: [place] [address] [employer] Other XR knee LT 2V Transcribed By: [facility] 12/03/21 1533 [employer] Other XR knee LT 2V Dictated By: Naun Haywood Jr, DO 12/03/21 1533 [employer] Other XR knee LT 2V Signed By: [employer] Other XR knee LT 2V 12/03/21 5558 [employer] Other XR pre/post mri xrayon 11-14 XR pre/post mri xray [facility] [place] [address] [place] [address] MRI Report Signed Patient: Darian Duenas MR#: [id number] 65 : 1955 Acct:[id number] Age/Sex: 66 / M ADM Date: 11/14/21 Loc: [facility] Room: Type: [facility] CLI Attending Dr: Nahid Canchola DO Copies to: Nahid Canchola DO Ordering Provider: Nahid Canchola DO Date of Service: 11/14/21 MR/MR femur LT wo con: Status post total left knee replacement ([id number]) XR/XR pre/post mri xray: Z96.652 MR femur [...] Cristi Dwyer M.D.11/14/2021 3:52 PM Dictation Location: [facility] Transcribed By: [facility] 11/14/21 155 Dictated By: Cristi Dwyer II, MD 11/14/21 1545 Signed By: 11/14/21 155 [facility] XR lumbar spine AP/LAT/FLX/E XTon 10-26-2021 XR lumbar spine AP/LAT/FLX/EXT [facility] [place] [address] XRay Report Signed Patient: Darian Duenas MR#: [id number] 65 : 1955 Acct:[id number] Age/Sex: 66 / M ADM Date: 10/26/21 Loc: [facility] Room: Type: [facility] Attending Dr: Nahid Canchola DO Copies to: [...] L5-S1. Impression dictated by: Naun Haywood Jr., D.ODeedee10/26/2021 2:45 PM Dictation Location: [facility] Transcribed By: [facility] 10/26/21 1445 Dictated By: Naun Haywood Jr, DO 10/26/21 1443 Signed By: 10/26/21 144 [facility] C-Reactive Proteinon 022 C-Reactive Protein 1.4 mg/dL High 0.0-1.0 [facility] Comment on above: Result Comment: PERF ORMED BY: [place] [id number] PATHOLOGIST FREEZER ASSISTANT MARIELA OLVERA M.D. Performed By: #### C RP, CBC, ESR #### [address] Complete Blood Count Auto Di ffon 08-01-2021 Basophils (Bld) [#/Vol] 0.1 10*3/uL Normal 0.0-0.2 [facility] Comment on above: Performed By: #### C RP, CBC, ESR #### [address] Basophils/100 WBC (Bld) 0.8 % Normal . [facility] Comment on above: Performed By: #### C RP, CBC, ESR #### [address] Eosinophils (Bld) [#/Vol] 0.2 10*3/uL Normal 0.0-0.45 [facility] Comment on above: Performed By: #### C RP, CBC, ESR #### [address] Eosinophils/100 WBC (Bld) 1.9 % Normal . [facility] Comment on above: Performed By: #### C RP, CBC, ESR #### [address] Erythrocyte distribution width (RBC) [Ratio] 13.8 % Normal 12.0-14.8 [facility] Comment on above: Performed By: #### C RP, CBC, ESR #### [address] Hematocrit (Bld) [Volume fraction] 39.2 % Normal 38.8-50.0 [facility] Comment on above: Performed By: #### C RP, CBC, ESR #### [address] [place] [address] [place] Hemoglobin (Bld) [Mass/Vol] 13.3 g/dL Normal 13.0-17.0 [facility] Comment on above: Performed By: #### C RP, CBC, ESR #### [facility] [place] [address] Lymphocytes (Bld) [#/Vol] 1.9 10*3/uL Normal 1.00-4.8 [facility] Comment on above: Performed By: #### C RP, CBC, ESR #### [facility] [address] Lymphocytes/100 WBC (Bld) 22.3 % Normal . [facility] Comment on above: Performed By: #### C RP, CBC, ESR #### [facility] [place] [address] MCH (RBC) [Entitic mass] 31.3 pg Normal 27.5-35.2 [facility] Comment on above: Performed By: #### C RP, CBC, ESR #### [address] MCV (RBC) [Entitic vol] 92.2 fL Normal 83.5-101 [facility] Comment on above: Performed By: #### C RP, CBC, ESR #### [address] Mean Corpuscular HGB Conc 33.9 g/dL Normal 32.5-35.6 [facility] Comment on above: Performed By: #### C RP, CBC, ESR #### [facility] [place] [address] [place] [address] [place] Monocytes (Bld) [#/Vol] 0.7 10*3/uL Normal 0.0-0.8 [facility] Comment on above: Performed By: #### C RP, CBC, ESR #### [facility] [place] [address] [place] [address] [place] Monocytes/100 WBC (Bld) 8.8 % Normal . [facility] Comment on above: Performed By: #### C RP, CBC, ESR #### [facility] [place] [address] Neutrophils (Bld) [#/Vol] 5.5 10*3/uL Normal 1.8-7.7 [facility] Comment on above: Performed By: #### C RP, CBC, ESR #### [facility] [address] Neutrophils/100 WBC (Bld) 66.2 % Normal . [facility] Comment on above: Performed By: #### C RP, CBC, ESR #### [facility] [place] [address] Nucleated RBC/100 WBC (Bld) [Ratio] 0.0 % Normal 0-0.5 [facility] Comment on above: Performed By: #### C RP, CBC, ESR #### [address] Platelet mean volume (Bld) [Entitic vol] 8.5 fL Normal 6.6-10.1 [facility] Comment on above: Performed By: #### C RP, CBC, ESR #### [facility] [place] [address] [place] [address] [place] Platelets (Bld) [#/Vol] 380 10*3/uL Normal 150-450 [facility] Comment on above: Performed By: #### C RP, CBC, ESR #### [facility] [address] RBC (Bld) [#/Vol] 4.25 10*6/uL Normal 3.90-5.60 [facility] Comment on above: Performed By: #### C RP, CBC, ESR #### [facility] [address] [place] [address] [place] WBC (Bld) [#/Vol] 8.3 10*3/uL Normal 4.5-11.[address] [facility] Comment on above: Performed By: #### C RP, CBC, ESR #### [address] Erythrocyte Sedimentation Ra susan 08-01-2021 ESR (Bld) [Velocity] 39 mm/h High 0-19 [facility] Comment on above: Result Comment: PERF ORMED BY: [facility] [address] [id number] PATHOLOGIST FREEZER ASSISTANT MARIELA OLVERA M.D. Performed By: #### C RP, CBC, ESR #### [facility] [id number] [facility] 07-05-2021 L Specimen: Received: 07/05/21 Status: VALERY Hammond Num: [id number] Spec Type: Surgical Subm Dr: Nahid Canchola DO Tissues: A Joint/Knee (L KNEE) Procedures: HE Stain, Gross/Micro Hemanth Frey Patient Age/Sex Location Account Attending Physician Darian Duenas 66/M [place] [id number] Nahid Canchola DO SPEC NUM: [id number] RECD: 07/05/21 STATUS: VALERY HAMMOND NUM: [id number] MELISSA: 07/05/21 DR: Nahid Canchola DO ENTERED: 07/05/[address] [facility] [address]: ALEXANDER TYPE: Surgical DEPT: S [...] reveals shine, focally sclerotic cut surfaces. 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 (SM/JS) Microscopic Description One glass slide with H E stained material has been examined. The microscopic findings support the above pathologic diagnosis. [id number], [id number] Specimen: Received: 07/05/21 Status: VALERY Hammond Num: [id number] Spec Type: Surgical Subm Dr: Nahid Canchola DO Tissues: A Joint/Knee (L KNEE) Procedures: HE Stain, Gross/Micro L4, Decal Patient: Darian Duenas [id number] (Continued) Signed (signature on file) Mariela Olvera MD 07/10/21 184 [facility] XR knee LT 2Von 07-05-2021 XR [place] LT 2[place] [address] XRay Report Signed Patient: Darian Duenas MR#: [id number] 65 : 1955 Acct:[id number] Age/Sex: 66 / M ADM Date: 07/05/21 Loc: [place] Room: Type: 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 This test has not been FDA [...] is terminated or revoked sooner. PERFORMED BY: [address] [place] [place] [address] PATHOLOGIST FREEZER ASSISTANT JIANLAN SUN M.D. Performed By: #### C OVID 19 [facility] #### [facility] [address] Complete Blood Count Auto Di ffon 07-03-2021 Basophils (Bld) [#/Vol] 0.0 10*3/uL Normal 0.0-0.2 [facility] Comment on above: Result Comment: PERF ORMED BY: [place] [id number] PATHOLOGIST FREEZER ASSISTANT MARIELA OLVERA M.D. Performed By: #### C MP, CBC #### [facility] [address] Basophils/100 WBC (Bld) 0.3 % Normal . [facility] Comment on above: Performed By: #### C MP, CBC #### [facility] [address] Eosinophils (Bld) [#/Vol] 0.2 10*3/uL Normal 0.0-0.45 [facility] Comment on above: Performed By: #### C MP, CBC #### [address] Eosinophils/100 WBC (Bld) 2.5 % Normal . [facility] Comment on above: Performed By: #### C MP, CBC #### [facility] [address] Erythrocyte distribution width (RBC) [Ratio] 13.5 % Normal 12.0-14.8 [facility] Comment on above: Performed By: #### C MP, CBC #### [facility] [address] Hematocrit (Bld) [Volume fraction] 42.9 % Normal 38.8-50.0 [facility] Comment on above: Performed By: #### C MP, CBC #### [facility] [address] Hemoglobin (Bld) [Mass/Vol] 14.6 g/dL Normal 13.0-17.0 [facility] Comment on above: Performed By: #### C MP, CBC #### [facility] [address] [place] [address] [place] Lymphocytes (Bld) [#/Vol] 1.6 10*3/uL Normal 1.00-4.8 [facility] Comment on above: Performed By: #### C MP, CBC #### [facility] [address] [place] [address] [place] Lymphocytes/100 WBC (Bld) 23.6 % Normal . [facility] Comment on above: Performed By: #### C MP, CBC #### [facility] [address] [place] [address] [place] MCH (RBC) [Entitic mass] 32.1 pg Normal 27.5-35.2 [facility] Comment on above: Performed By: #### C MP, CBC #### [address] MCV (RBC) [Entitic vol] 94.3 fL Normal 83.5-101 [facility] Comment on above: Performed By: #### C MP, CBC #### [address] Mean Corpuscular HGB Conc 34.0 g/dL Normal 32.5-35.6 [facility] Comment on above: Performed By: #### C MP, CBC #### [place] [address] [place] Monocytes (Bld) [#/Vol] 0.5 10*3/uL Normal 0.0-0.8 [facility] Comment on above: Performed By: #### C MP, CBC #### [place] [address] [place] Monocytes/100 WBC (Bld) 7.8 % Normal . [facility] Comment on above: Performed By: #### C MP, CBC #### [place] [address] [place] Neutrophils (Bld) [#/Vol] 4.3 10*3/uL Normal 1.8-7.7 [facility] Comment on above: Performed By: #### C MP, CBC #### [address] Neutrophils/100 WBC (Bld) 65.8 % Normal . [facility] Comment on above: Performed By: #### C MP, CBC #### [address] Nucleated RBC/100 WBC (Bld) [Ratio] 0.1 % Normal 0-0.5 [facility] Comment on above: Performed By: #### C MP, CBC #### [address] Platelet mean volume (Bld) [Entitic vol] 9.1 fL Normal 6.6-10.1 [facility] Comment on above: Performed By: #### C MP, CBC #### [address] Platelets (Bld) [#/Vol] 237 10*3/uL Normal 150-450 [facility] Comment on above: Performed By: #### C MP, CBC #### [address] RBC (Bld) [#/Vol] 4.55 10*6/uL Normal 3.90-5.60 [facility] Comment on above: Performed By: #### C MP, CBC #### [address] WBC (Bld) [#/Vol] 6.6 10*3/uL Normal 4.5-11.[address] [facility] Comment on above: Performed By: #### C MP, CBC #### [address] Comprehensive Metabolic Pane emanuel 07-03-2021 Albumin [Mass/Vol] 3.7 g/dL Normal 3.2-5.5 [facility] Comment on above: Performed By: #### C MP, CBC #### [address] Albumin/Globulin [Mass ratio] 1.4 {ratio} Normal [facility] Comment on above: Performed By: #### C MP, CBC #### [facility] [address] [place] [address] ALP [Catalytic activity/Vol] 54 U/L Normal 32-92 [facility] Comment on above: Result Comment: PERF ORMED BY: [place] [id number] PATHOLOGIST FREEZER ASSISTANT MARIELA OLVERA M.D. Performed By: #### C MP, CBC #### [address] ALT [Catalytic activity/Vol] 20 U/L Normal 10-60 [facility] Comment on above: Performed By: #### C MP, CBC #### [address] AST [Catalytic activity/Vol] 21 U/L Normal 10-42 [facility] Comment on above: Performed By: #### C MP, CBC #### [address] Bilirubin [Mass/Vol] 0.6 mg/dL Normal 0.3-1.2 [facility] Comment on above: Performed By: #### C MP, CBC #### [facility] [address] [place] [address] Calcium [Mass/Vol] 9.6 mg/dL Normal 8.2-10.2 [facility] Comment on above: Performed By: #### C MP, CBC #### [facility] [address] [place] [address] [place] Chloride [Moles/Vol] 105 mmol/L Normal 95-114 [facility] Comment on above: Performed By: #### C MP, CBC #### [facility] [address] [place] [address] [place] CO2 [Moles/Vol] 26.1 mmol/L Normal 22.0-30.0 [facility] Comment on above: Performed By: #### C MP, CBC #### [facility] [address] [place] [address] [place] Creatinine [Mass/Vol] 1.10 mg/dL Normal 0.64-1.27 [facility] Comment on above: Performed By: #### C MP, CBC #### [place] [address] [place] Estimated GFR ( Vani > 60 Normal [facility] Comment on above: Result Comment: GFR estimated reference range: According to KDOQI guidelines, <60 ml/min/1.73m2 is sufficient to diagnose a patient with chronic kidney disease. Performed By: #### C MP, CBC #### [place] [address] [place] Estimated GFR (Non- Am > 60 Normal [facility] Comment on above: Performed By: #### C MP, CBC #### [address] Globulin (S) [Mass/Vol] 2.7 g/dL Normal [facility] Comment on above: Performed By: #### C MP, CBC #### [address] Glucose [Mass/Vol] 102 mg/dL High 70-100 [facility] Comment on above: Result Comment: [place] Glucose Reference Range is dependent on time and content of last meal. Glucose of more than 200 mg/dL in a nonstressed, ambulatory subject supports the diagnosis of Diabetes Mellitus. ADA recommended reference range Performed By: #### C MP, CBC #### [address] Potassium [Moles/Vol] 4.5 mmol/L Normal 3.5-5.1 [facility] Comment on above: Performed By: #### C MP, CBC #### [place] [address] [place] Protein [Mass/Vol] 6.4 g/dL Normal 6.1-7.9 [facility] Comment on above: Performed By: #### C MP, CBC #### [address] Sodium [Moles/Vol] 140 mmol/L Normal 136-146 [facility] Comment on above: Performed By: #### C MP, CBC #### [address] [place] [address] [place] Urea nitrogen [Mass/Vol] 17 mg/dL Normal 9-23 [facility] Comment on above: Performed By: #### C MP, CBC #### [facility] [address] [id number] [facility] Vital Signs Date Time Vital Sign Value Performing Clinician Facility 04-20-2024 14:10-0500 Blood Pressure Location Tonia DEVRIES [facility] 04-20-2024 14:10-0500 Diastolic blood pressure 78 mm[Hg] Tonia DEVRIES [facility] 04-20-2024 14:10-0500 Heart rate 80 /min Tonia DEVRIES [facility] 04-20-2024 14:10-0500 Respiratory rate 16 /min Tonia DEVRIES [facility] 04-20-2024 14:10-0500 Systolic blood pressure 150 mm[Hg] Tonia DEVRIES [facility] 01-06-2024 13:56-0400 Blood Pressure Location Tonia DEVRIES [facility] 01-06-2024 13:56-0400 Diastolic blood pressure 93 mm[Hg] Tonia DEVRIES [facility] 01-06-2024 13:56-0400 Heart rate 72 /min Tonia DEVRIES [facility] 01-06-2024 13:56-0400 Respiratory rate 16 /min Tonia DEVRIES [facility] 01-06-2024 13:56-0400 Systolic blood pressure 175 mm[Hg] Tonia DEVRIES [facility] 12-16-2023 11:13-0400 Body height 182.9 cm Catracho Willis MD Work Phone: [facility] 12-16-2023 11:13-0400 Body mass index (BMI) [Ratio] 25.23 kg/m2 Catracho Willis MD Work Phone: [facility] 12-16-2023 11:13-0400 Body temperature 97.81 [degF] Catracho Willis MD Work Phone: [facility] 12-16-2023 11:13-0400 Body weight 84.37 kg Catracho Willis MD Work Phone: [facility] 12-16-2023 11:13-0400 Diastolic blood pressure 60 mm[Hg] Catracho Willis MD Work Phone: [facility] 12-16-2023 11:13-0400 Heart rate 61 /min Catracho Willis MD Work Phone: [facility] 12-16-2023 11:13-0400 Respiratory rate 18 /min Catracho Willis MD Work Phone: [facility] 12-16-2023 11:13-0400 SaO2% (BldA) [Mass fraction] 97 % Catracho Willis MD Work Phone: [facility] 12-16-2023 11:13-0400 Systolic blood pressure 110 mm[Hg] Catracho Willis MD Work Phone: [facility] 11-20-2023 14:38-0400 Diastolic blood pressure 70 mm[Hg] YAHAIRA LONG [facility] 11-20-2023 14:38-0400 Heart rate 73 /min YAHAIRA LONG [facility] 11-20-2023 14:38-0400 Respiratory rate 16 /min YAHAIRA ETHAN [facility] 11-20-2023 14:38-0400 Systolic blood pressure 112 mm[Hg] YAHAIRA ETHAN [facility] 11-06-2023 14:34-0400 Blood Pressure Location YAHAIRA ETHAN [facility] 11-06-2023 14:34-0400 Body temperature 98.6 [degF] YAHAIRA ETHAN [facility] 11-06-2023 14:34-0400 Diastolic blood pressure 87 mm[Hg] YAHAIRA ETHAN [facility] 11-06-2023 14:34-0400 Heart rate 72 /min YAHAIRA ETHAN [facility] 11-06-2023 14:34-0400 Respiratory rate 16 /min YAHAIRA ETHAN [facility] 11-06-2023 14:34-0400 Systolic blood pressure 135 mm[Hg] YAHAIRA ETHAN [facility] 09-30-2023 13:51-0400 Blood Pressure Location Tonia DEVRIES [facility] 09-30-2023 13:51-0400 Diastolic blood pressure 74 mm[Hg] Tonia DEVRIES [facility] 09-30-2023 13:51-0400 Heart rate 62 /min Tonia DEVRIES [facility] 09-30-2023 13:51-0400 Systolic blood pressure 127 mm[Hg] Tonia DEVRIES [facility] 06-24-2023 13:09-0400 Body temperature 98.6 [degF] Tonia DEVRIES [facility] 06-24-2023 13:09-0400 Diastolic blood pressure 77 mm[Hg] Tonia DEVRIES [facility] 06-24-2023 13:09-0400 Heart rate 69 /min Tonia DEVRIES [facility] 06-24-2023 13:09-0400 Respiratory rate 16 /min Tonia DEVRIES [facility] 06-24-2023 13:09-0400 Systolic blood pressure 132 mm[Hg] Tonia DEVRIES [facility] 05-13-2023 09:10-0500 Blood Pressure Location YAHAIRA ETHAN [facility] 05-13-2023 09:10-0500 Diastolic blood pressure 74 mm[Hg] YAHAIRA ETHAN [facility] 05-13-2023 09:10-0500 Heart rate 68 /min YAHAIRA ETHAN [facility] 05-13-2023 09:10-0500 Respiratory rate 16 /min YAHAIRA ETHAN [facility] 05-13-2023 09:10-0500 Systolic blood pressure 128 mm[Hg] YAHAIRA ETHAN [facility] 05-05-2023 08:39-0500 Blood Pressure Location Tonia DEVRIES [facility] 05-05-2023 08:39-0500 Diastolic blood pressure 71 mm[Hg] Tonia DEVRIES [facility] 05-05-2023 08:39-0500 Heart rate 67 /min Tonia DEVRIES [facility] 05-05-2023 08:39-0500 Respiratory rate 16 /min Tonia DEVRIES [facility] 05-05-2023 08:39-0500 Systolic blood pressure 129 mm[Hg] Tonia DEVRIES [facility] 03-28-2023 18:00-0500 Body height 182.88 cm Margaret Hardy Other [employer] Other 03-28-2023 18:00-0500 Body mass index (BMI) [Ratio] 25.71 kg/m2 Margaret Hardy Other [facility] Other 03-28-2023 18:00-0500 Body temperature 99.6 [degF] Margaret Hardy Other [facility] Other 03-28-2023 18:00-0500 Body weight 86 kg Margaret Hardy Other [facility] Other 03-28-2023 18:00-0500 Diastolic blood pressure 72 mm[Hg] Margaret Hardy Other [facility] Other 03-28-2023 18:00-0500 Respiratory rate 18 /min Margaret Hardy Other [facility] [employer] Other 03-28-2023 18:00-0500 SaO2% (BldA) [Mass fraction] 99 % Margaret Hardy Other [facility] [employer] Other 03-28-2023 18:00-0500 Systolic blood pressure 133 mm[Hg] Margaret Hayley Other [facility] [employer] Other 03-03-2023 09:12-0500 Blood Pressure Location Tonia DEVRIES [facility] 03-03-2023 09:12-0500 Diastolic blood pressure 79 mm[Hg] Tonia DEVRIES [facility] 03-03-2023 09:12-0500 Heart rate 80 /min Tonia DEVRIES [facility] 03-03-2023 09:12-0500 Respiratory rate 16 /min Tonia DEVRIES [facility] 03-03-2023 09:12-0500 Systolic blood pressure 126 mm[Hg] Tonia DEVRIES [facility] 01-17-2023 10:25-0400 Blood Pressure Location Tonia DEVRIES [facility] 01-17-2023 10:25-0400 Diastolic blood pressure 66 mm[Hg] Tonia DEVRIES [facility] 01-17-2023 10:25-0400 Heart rate 62 /min Tonia DEVRIES [facility] 01-17-2023 10:25-0400 Respiratory rate 16 /min Tonia DEVRIES [facility] 01-17-2023 10:25-0400 Systolic blood pressure 121 mm[Hg] Tonia DEVRIES [facility] 12-10-2022 13:19-0400 Blood Pressure Location Tonia DEVRIES [facility] 12-10-2022 13:19-0400 Diastolic blood pressure 88 mm[Hg] Tonia DEVRIES [facility] 12-10-2022 13:19-0400 Heart rate 60 /min Tonia DEVRIES [facility] 12-10-2022 13:19-0400 Systolic blood pressure 137 mm[Hg] Tonia DEVRIES [facility] 10-22-2022 09:07-0400 Blood Pressure Location YAHAIRA NAILSRY [facility] 10-22-2022 09:07-0400 Diastolic blood pressure 73 mm[Hg] YAHAIRA ETHAN [facility] 10-22-2022 09:07-0400 Heart rate 60 /min YAHAIRA ETHAN [facility] 10-22-2022 09:07-0400 Systolic blood pressure 118 mm[Hg] YAHAIRA ETHAN [facility] 10-08-2022 09:01-0400 Blood Pressure Location YAHAIRA ETHAN [facility] 10-08-2022 09:01-0400 Diastolic blood pressure 80 mm[Hg] YAHAIRA ETHAN [facility] 10-08-2022 09:01-0400 Heart rate 80 /min YAHAIRA ETHAN [facility] 10-08-2022 09:01-0400 Respiratory rate 16 /min YAHAIRA ETHAN [facility] 10-08-2022 09:01-0400 Systolic blood pressure 130 mm[Hg] YAHAIRA ETHAN [facility] 09-17-2022 09:11-0400 Blood Pressure Location YAHAIRA ETHAN [facility] 09-17-2022 09:11-0400 Diastolic blood pressure 74 mm[Hg] YAHAIRA ETHAN [facility] 09-17-2022 09:11-0400 Heart rate 80 /min YAHAIRA ETHAN [facility] 09-17-2022 09:11-0400 Respiratory rate 16 /min YAHAIRA ETHAN [facility] 09-17-2022 09:11-0400 Systolic blood pressure 128 mm[Hg] YAHAIRA ETHAN [facility] 09-10-2022 08:55-0400 Blood Pressure Location YAHAIRA ETHAN [facility] 09-10-2022 08:55-0400 Diastolic blood pressure 70 mm[Hg] YAHAIRA ETHAN [facility] 09-10-2022 08:55-0400 Heart rate 66 /min YAHAIAR ETHAN [facility] 09-10-2022 08:55-0400 Systolic blood pressure 127 mm[Hg] YAHAIRA ETHAN [facility] 09-03-2022 09:00-0400 Blood Pressure Location YAHAIRA ETHAN [facility] 09-03-2022 09:00-0400 Diastolic blood pressure 74 mm[Hg] YAHAIRA ETHAN [facility] 09-03-2022 09:00-0400 Heart rate 68 /min YAHAIRA ETHAN [facility] 09-03-2022 09:00-0400 Respiratory rate 16 /min YAHAIRA ETHAN [facility] 09-03-2022 09:00-0400 Systolic blood pressure 128 mm[Hg] YAHAIRA ETHAN [facility] 08-27-2022 09:03-0400 Blood Pressure Location YAHAIRA ETHAN [facility] 08-27-2022 09:03-0400 Diastolic blood pressure 76 mm[Hg] YAHAIRA ETHAN [facility] 08-27-2022 09:03-0400 Heart rate 80 /min YAHAIRA ETHAN [facility] 08-27-2022 09:03-0400 Respiratory rate 16 /min YAHAIRA ETHAN [facility] 08-27-2022 09:03-0400 Systolic blood pressure 132 mm[Hg] YAHAIRA LONG [facility] 07-26-2022 08:44-0400 Blood Pressure Location Tonia DEVRIES [facility] 07-26-2022 08:44-0400 Diastolic blood pressure 90 mm[Hg] Toniapete DEVRIES [facility] 07-26-2022 08:44-0400 Heart rate 68 /min Toniapete DEVRIES [facility] 07-26-2022 08:44-0400 Respiratory rate 16 /min Tonia DEVRIES [facility] 07-26-2022 08:44-0400 Systolic blood pressure 128 mm[Hg] Toniapete DEVRIES [facility] 03-29-2022 10:45-0500 Body height 182.88 cm Nahid Canchola Other [employer] [facility] [employer] Other 03-29-2022 10:45-0500 Body mass index (BMI) [Ratio] 25.09 kg/m2 Nahid Canchola Other [employer] Other 03-29-2022 10:45-0500 Body weight 83.92 kg Nahid Canchola Other [employer] Other 01-07-2022 12:22-0400 Blood Pressure Location Tonia DEVRIES [facility] 01-07-2022 12:22-0400 Diastolic blood pressure 71 mm[Hg] Tonia DEVRIES [facility] 01-07-2022 12:22-0400 Heart rate 65 /min Tonia DEVRIES [facility] 01-07-2022 12:22-0400 Respiratory rate 16 /min Tonia DEVRIES [facility] 01-07-2022 12:22-0400 Systolic blood pressure 124 mm[Hg] Tonia DEVRIES [facility] 09-28-2021 11:00-0400 Body height 182.88 cm Nahid Jesika Other [employer] Other 09-28-2021 11:00-0400 Body mass index (BMI) [Ratio] 25.49 kg/m2 Nahid Jesika Other [facility] Other 09-28-2021 11:00-0400 Body weight 85.28 kg Nahid Jesika Other [facility] Other 08-01-2021 14:00-0400 Body height 182.88 cm Nahid Jesika Other [facility] Other 08-01-2021 14:00-0400 Body mass index (BMI) [Ratio] 25.49 kg/m2 Nahid Jesika Other [facility] Other 08-01-2021 14:00-0400 Body weight 85.28 kg Nahid Jesika Other [facility] Other 07-18-2021 12:00-0400 Body height 182.88 cm Nahid Jesika Other [facility] Other 07-18-2021 12:00-0400 Body mass index (BMI) [Ratio] 26.04 kg/m2 Nahid Jesika Other [facility] Other 07-18-2021 12:00-0400 Body weight 87.09 kg Nahid Jesika Other [facility] Other 04-23-2021 15:45-0500 Body height 182.88 cm Nahid Jesika Other [facility] Other 04-23-2021 15:45-0500 Body mass index (BMI) [Ratio] 26.04 kg/m2 Nahid Jesika Other [facility] Other 04-23-2021 15:45-0500 Body weight 87.09 kg Nahid Jesika Other [facility] Other 03-12-2021 09:00-0500 Body height 182.88 cm Nahid Jesika Other [facility] Other 03-12-2021 09:00-0500 Body mass index (BMI) [Ratio] 26.12 kg/m2 Nahid Jesika Other [facility] Other 03-12-2021 09:00-0500 Body weight 87.36 kg Nahid Jesika Other [facility] Other 02-12-2021 14:00-0500 Body height 182.88 cm Nahid Jesika Other [facility] Other 02-12-2021 14:00-0500 Body mass index (BMI) [Ratio] 26.04 kg/m2 Nahid Jesika Other [employer] Other 02-12-2021 14:00-0500 Body weight 87.09 kg Nahid Jesika Other [facility] Other 01-10-2021 12:00-0400 Body height 182.88 cm Nahid Canchola Other [employer] Other 01-10-2021 12:00-0400 Body mass index (BMI) [Ratio] 26.15 kg/m2 Nahid Canchola Other [facility] Other 01-10-2021 12:00-0400 Body weight 87.45 kg Nahid Canchola Other [facility] [employer] Other Encounters Encounter Date Encounter Type Care Provider Facility Start: 04-20-2024 End: 04-20-2024 Lab Drop off Tonia DEVRIES [facility] Start: 04-20-2024 End: 04-20-2024 ambulatory Tonia DEVRIES Facility:[facility] Start: 04-20-2024 End: 04-20-2024 Patient encounter procedure Tonia DEVRIES [facility] Start: 01-06-2024 End: 01-06-2024 ambulatory Tonia DEVRIES Facility:[facility] Start: 01-06-2024 End: 01-06-2024 Lab Drop off Tonia DEVRIES [facility] Start: 01-06-2024 End: 01-06-2024 ambulatory Tonia DEVRIES Facility:[facility] Start: 01-06-2024 End: 01-06-2024 Patient encounter procedure Tonia DEVRIES [facility] [place] Start: 12-19-2023 End: 12-19-2023 Clinisync Result Encounter Catracho Willis MD Work Phone: [facility] Unsolicited Start: 12-19-2023 End: 12-19-2023 Clinisync Result Encounter Catracho Willis MD Work Phone: [facility] Unsolicited Start: 12-16-2023 End: 12-16-2023 Bamboo flowsheet Catracho Willis MD Work Phone: [facility] Start: 12-16-2023 End: 12-16-2023 Bamboo flowsheet Catracho Willis MD Work Phone: [facility] Start: 12-16-2023 End: 12-16-2023 ambulatory CATRACHO WILLIS Not Available Start: 12-16-2023 End: 12-16-2023 Patient encounter procedure Catracho Willis MD Work Phone: [facility] Work Phone: Start: 12-16-2023 End: 12-16-2023 Postop follow up visit related to original px Catracho Willis MD Work Phone: [facility] Comment on above: Medicare annual well ness visit, subsequent (Primary Dx); Prediabetes; Screening PSA (prostate specific antigen); Encounter for long-term (current) use of medications; Dyslipidemia (CMS/HCC); Malignant neoplasm of urinary bladder, unspecified site (CMS/HCC) Start: 11-20-2023 End: 11-20-2023 ambulatory [facility]HAIRA [facility] Start: 11-20-2023 End: 11-20-2023 Patient encounter procedure YAHAIRA NAILSRY [facility] Start: 11-13-2023 End: 11-13-2023 ambulatory [facility]SRY [facility] Start: 11-13-2023 End: 11-13-2023 Patient encounter procedure YAHAIRA LONG [facility] Start: 11-06-2023 End: 11-06-2023 ambulatory YAHAIRA LONG Facility:[facility] Start: 11-06-2023 End: 11-06-2023 Patient encounter procedure YAHAIRA LONG [facility] Start: 09-30-2023 End: 09-30-2023 Lab Drop off Tonia DEVRIES [facility] Start: 09-30-2023 End: 09-30-2023 ambulatory Tonia DEVRIES Facility:[facility] Start: 09-30-2023 End: 09-30-2023 Patient encounter procedure Tonia DEVRIES [facility] [place] Start: 08-20-2023 End: 08-20-2023 ambulatory FLAQUITA JACOBSETT Not Available Start: 06-24-2023 End: 06-24-2023 Lab Drop off Tonia DEVRIES [facility] Start: 06-24-2023 End: 06-24-2023 ambulatory Tonia DEVRIES Facility:[facility] Start: 06-24-2023 End: 06-24-2023 Patient encounter procedure Tonia DEVRIES [facility] [place] Start: 05-13-2023 End: 05-13-2023 ambulatory YAHAIRA LONG Facility:[facility] Start: 05-13-2023 End: 05-13-2023 Patient encounter procedure YAHAIRA LONG [facility] Start: 05-05-2023 End: 05-05-2023 ambulatory Tonia DEVRIES Facility:[facility] Start: 05-05-2023 End: 05-05-2023 Patient encounter procedure Tonia DEVRIES [facility] [place] Start: 04-28-2023 End: 04-28-2023 ambulatory Tonai DEVRIES Facility:[facility] Start: 04-02-2023 End: 04-02-2023 ambulatory CATRACHO WILLIS Not Available Start: 03-28-2023 End: 03-28-2023 ambulatory Margaret Hardy Other [employer] Other Start: 03-28-2023 Office outpatient vi sit 15 minutes Margaret Hardy [facility] Start: 03-10-2023 End: 03-10-2023 Patient encounter procedure Tonia DEVRIES [facility] [employer] Start: 03-03-2023 End: 03-03-2023 Patient encounter procedure Tonia DEVRIES [facility] [place] Start: 02-26-2023 End: 02-26-2023 Patient encounter procedure Tonia DEVRIES [facility] [place] Start: 01-17-2023 End: 01-17-2023 Patient encounter procedure Tonia DEVREIS [facility] [place] Start: 12-10-2022 End: 12-10-2022 Patient encounter procedure Tonia DEVRIES [facility] [employer] Start: 12-09-2022 End: 12-09-2022 Lab Drop off Tonia DEVRIES [facility] Start: 12-09-2022 End: 12-09-2022 Patient encounter procedure Tonia DEVRIES [facility] Start: 10-22-2022 End: 10-22-2022 Patient encounter procedure YAHAIRA LONG [facility] Start: 10-08-2022 End: 10-08-2022 Patient encounter procedure YAHAIRA LONG [facility] [employer] Start: 09-17-2022 End: 09-17-2022 Patient encounter procedure YAHAIRA LONG [facility] [employer] Start: 09-10-2022 End: 09-10-2022 Patient encounter procedure [facility] Start: 09-03-2022 End: 09-03-2022 Patient encounter procedure YAHAIRA LONG [facility] Start: 08-27-2022 End: 08-27-2022 Lab Drop off YAHAIRA NAILSRY [facility] Start: 08-27-2022 End: 08-27-2022 Patient encounter procedure YAHAIRA LONG [facility] [employer] Start: 07-26-2022 End: 07-26-2022 Patient encounter procedure Tonia DEVRIES [facility] Start: 07-20-2022 Encounter for preprocedural cardiovascular examination DR TONIA DEVRIES . [facility] Start: 07-20-2022 Encounter for preprocedural laboratory examination DR TONIA DEVRIES . [facility] Start: 07-18-2022 End: 07-18-[address] TONIA DEVRIES . Facility:[facility] Start: 07-17-2022 End: 07-18-[address] TONIA DEVRIES . Facility:[facility] Start: 07-17-2022 End: 07-18-2022 Encounter for preprocedural cardiovascular examination DR TONIA DEVRIES . Facility: Start: 07-16-2022 End: 07-16-2022 Patient encounter procedure Tonia DEVRIES [facility] Start: 06-27-2022 End: 06-28-[address] TONIA DEVRIES . Facility: Start: 06-10-2022 Office outpatient ne w 45 minutes Mickie Cooper [facility] Start: 06-10-2022 End: 06-10-2022 ambulatory Mickie Cooper Facility:[facility] Start: 06-10-2022 End: 06-10-2022 ambulatory MD Catracho Willis Work Phone: [facility] Work Phone: Start: 06-10-2022 End: 06-10-2022 Patient encounter procedure MD Catracho Willis Work Phone: [facility] Start: 03-29-2022 End: 03-29-2022 ambulatory Nahid Canchola Other [employer] Other Start: 03-29-2022 Patient encounter procedure Nahid Canchola [facility] [facility] Start: 03-21-2022 End: 03-21-2022 ambulatory Catracho Willis Facility:[facility] Start: 03-21-2022 End: 03-21-2022 ambulatory MD Catracho Willis Work Phone: [facility] Work Phone: Start: 03-21-2022 End: 03-21-2022 Patient encounter procedure MD Catracho Willis Work Phone: [facility] [address] Work Phone: Start: 01-07-2022 End: 01-07-2022 Patient encounter procedure Tonia DEVRIES [facility] Start: 12-05-2021 End: 12-06-[address] TONIA DEVRIES . Facility: Start: 12-03-2021 Office outpatient vi sit 15 minutes [facility] Start: 12-03-2021 End: 12-03-2021 ambulatory Catracho Willis [facility] Other Start: 12-03-2021 End: 12-03-2021 Patient encounter procedure MD Catracho Willis Work Phone: [facility] Start: 11-14-2021 End: 11-14-2021 ambulatory Nahid Canchola Facility:[facility] Start: 11-14-2021 End: 11-14-2021 Patient encounter procedure MD Catracho Willis Work Phone: [facility] [address] Start: 11-01-2021 End: 11-01-2021 ambulatory Nahid Canchola Other [facility] Other Start: 11-01-2021 Telephone encounter Nahid MERRILL [facility] Start: 10-26-2021 End: 10-26-2021 ambulatory Nahid Canchola Facility:[facility] Start: 10-26-2021 End: 10-26-2021 Patient encounter procedure MD Catracho Willis Work Phone: [facility] Start: 10-04-2021 End: 11-15-2021 ambulatory NAHID JESIKA Facility:[facility] Start: 09-28-2021 End: 09-28-2021 ambulatory Nahid Canchola Other [facility] Other Start: 09-28-2021 Postop follow up vis it related to original px Nahid Jesika [facility] Start: 08-17-2021 End: 08-17-2021 ambulatory Nahid Canchola Other [facility] Other Start: 08-17-2021 Postop follow up vis it related to original px Nahid Jesika [facility] Start: 08-01-2021 End: 08-01-2021 ambulatory Nahid Coronado [facility] Other Start: 08-01-2021 Postop follow up vis it related to original px Nahid Jesika [facility] Start: 07-31-2021 End: 07-31-2021 ambulatory Nahid Galavizley Other [facility] Other Start: 07-31-2021 Telephone encounter Nahid MERRILL [facility] Start: 07-18-2021 End: 07-18-2021 ambulatory Nahid Jesika Other [facility] Other Start: 07-18-2021 Postop follow up vis it related to original px Nahid Jesika [facility] Start: 07-05-2021 End: 07-05-2021 ambulatory Catracho Willis Facility:[facility] Start: 07-03-2021 End: 07-03-2021 ambulatory Catracho Willis [facility] Other Start: 07-03-2021 Telephone encounter Nahid Canchola [facility] Start: 07-02-2021 Encounter for other preprocedural examination Nahid Canchola [facility] Start: 07-02-2021 Office outpatient vi sit 25 minutes Nahid Canchola [facility] Start: 07-02-2021 End: 07-02-2021 ambulatory Catracho Pereirareymarisela [facility] Other Start: 06-11-2021 End: 06-11-2021 ambulatory Nahid Canchola Other [facility] Other Start: 06-11-2021 Telephone encounter Nahid Canchola [facility] Start: 05-28-2021 End: 05-28-2021 ambulatory Nahid Canchola Other [facility] Other Start: 05-28-2021 Telephone encounter Nahid Canchola [facility] Start: 04-23-2021 End: 04-23-2021 ambulatory Nahid Canchola Other [facility] Other Start: 04-23-2021 Office outpatient vi sit 15 minutes Nahid Canchola [facility] Start: 03-12-2021 End: 03-12-2021 ambulatory Nahid Canchola Other [facility] Other Start: 03-12-2021 Office outpatient vi sit 15 minutes Nahid Canchola [facility] Start: 02-12-2021 End: 02-12-2021 ambulatory Nahid Canchola Other [facility] Other Start: 02-12-2021 Office outpatient vi sit 15 minutes Nahid Canchola [facility] Start: 02-05-2021 End: 02-05-2021 ambulatory Les [place] Other [facility] Other Start: 02-05-2021 Telephone encounter Les Paul [facility] Start: 01-10-2021 Office outpatient vi sit 25 minutes Nahid Canchola [facility] Start: 08-13-2018 Emergency department patient visit CATRACHO WILLIS [facility] Procedures Date Procedure Procedure Detail Performing Clinician Start: 04-20-2024 Cystoscopy Toniapete GOMEZ Start: 01-06-2024 Cystoscopy Tonai GOMEZ Start: 12-19-2023 ALL CBC WITH AUTO DIFF Catracho Willis MD Work Phone: Start: 09-30-2023 Flexible cystoscope (physical object) Tonia DEVRIES Start: 09-02-2023 Colonoscopy Catracho harmon MD Work Phone: Start: 06-24-2023 Transurethral cystoscopy Tonia DEVRIES Start: 02-20-2023 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 Comment on above: Performed By: #### P SAD #### [facility] [address] [place] [address] Dr. Viktoria Nuñez Start: 06-10-2022 Plain X-ray of right shoulder MD Catracho Willis Work Phone: Start: 03-21-2022 MR lumbar spine wo con MD Catracho Willis Work Phone: Start: 12-05-[address] DENICE DEVRIES . Comment on above: Performed By: #### P SAD #### [facility] [address] [place] [address] Dr. Viktoria Nuñez Start: 12-03-2021 X-ray of [...] o f prostate using ultrasound guidance Tonia BARB Plan of Treatment Date Care Activity Detail Author Start: 09-01-2033 Screening for malign ant neoplasm of colon [facility] Start: 12-15-2024 Medicare Annual Wellness (AWV) Medicare Annual Wellness (AWV) [facility] Start: 12-16-2023 End: 12-15-2024 Basic metabolic 1998 panel - Serum or Plasma Basic metabolic panel Lab Routine Encounter for long-term (current) use of medications Expected: 12/16/2023 (Approximate), Expires: 12/15/2024 [facility] Comment on above: Expected: 12/16/2023 (Approximate), Expires: 12/15/2024 Start: 12-16-2023 End: 12-15-2024 CBC W Auto Differential panel - Blood CBC and differential Lab Routine Encounter for long-term (current) use of medications Expected: 12/16/2023 (Approximate), Expires: 12/15/2024 [facility] Comment on above: Expected: 12/16/2023 (Approximate), Expires: 12/15/2024 Start: 12-16-2023 End: 12-15-2024 Hemoglobin A1c/Hemoglobin.total in Blood Hemoglobin A1c Lab Routine Prediabetes Expected: 12/16/2023 (Approximate), Expires: 12/15/2024 [facility] Work Phone: Comment on above: Expected: 12/16/2023 (Approximate), Expires: 12/15/2024 Start: 12-16-2023 End: 12-15-2024 Hepatic function 2000 panel - Serum or Plasma Hepatic function panel Lab Routine Encounter for long-term (current) use of medications Expected: 12/16/2023 (Approximate), Expires: 12/15/2024 [facility] Comment on above: Expected: 12/16/2023 (Approximate), Expires: 12/15/2024 Start: 12-16-2023 End: 12-15-2024 Lipid 1996 panel - Serum or Plasma Lipid panel Lab Routine Dyslipidemia (CMS/HCC) Expected: 12/16/2023 (Approximate), Expires: 12/15/2024 [facility] Comment on above: Expected: 12/16/2023 (Approximate), Expires: 12/15/2024 Start: 12-16-2023 End: 12-15-2024 Prostate specific Ag [Mass/volume] in Serum or Plasma PSA Lab Routine Screening PSA (prostate specific antigen) Expected: 12/16/2023 (Approximate), Expires: 12/15/2024 [facility] Comment on above: Expected: 12/16/2023 (Approximate), Expires: 12/15/2024 Start: 11-23-2023 Influenza vaccination Influenza Vacc ine (#1) [facility] Start: 11-14-2021 MRI of left femur MR femur LT wo con [facility] Start: 11-14-2021 XR pre/post mri xray XR pre/post mri xray [facility] Start: 11-14-2021 End: 11-14-2021 Patient encounter procedure Departed Clinical [facility] [address] Start: 1961 Pneumococcal Vaccine : 65+ Years (1 of 2 - PCV) Pneumococcal Vaccine: 65+ Years (1 of 2 - PCV) [facility] Start: 1955 Medicare Annual Wellness (AWV) Medicare Annual Wellness (AWV) [facility] Start: 1955 Screening for malign ant neoplasm of colon [facility] Immunizations Immunization Date Immunization Notes Care Provider Carina david 11-20-2023 bacillus calmette-kely vaccine YAHAIRA LONG [facility] 11-13-2023 bacillus calmette-kely vaccine YAHAIRA ETHAN [facility] 11-06-2023 bacillus calmette-kely vaccine YAHAIRA ETHAN [facility] 05-13-2023 bacillus calmette-kely vaccine YAHAIRA ETHAN [facility] 05-05-2023 bacillus calmette-kely vaccine Tonia DEVRIES [facility] 04-28-2023 bacillus calmette-kely vaccine Tonia DEVRIES [facility] 10-22-2022 bacillus calmette-kely vaccine YAHAIRA ETHAN [facility] 10-14-2022 bacillus calmette-kely vaccine YAHAIRA ETHAN [facility] Comment on above: Early/Late Reason: E vijay/Late Reason: Other : Late documentation. Did not enter correct info 10-14-2022 bacillus calmette-kely vaccine YAHAIRA ETHAN [facility] 10-08-2022 bacillus calmette-kely vaccine YAHAIRA ETHAN [facility] 09-17-2022 bacillus calmette-kely vaccine YAHAIRA ETHAN [facility] 09-10-2022 bacillus calmette-kely vaccine YAHAIRA ETHAN [facility] 09-03-2022 bacillus calmette-kely vaccine YAHAIRA ETHAN [facility] 08-27-2022 bacillus calmette-kely vaccine YAHAIRA LONG [facility] 02-28-2021 COVID-19 mRNASue (Pfizer) MD Catracho Willis Work Phone: [facility] 01-10-2021 Kenalog -40 mg Nahid Jesika Other [facility] Other 09-01-2020 SARS-CoV-2 (COVID-19 ) mRNA BNT-162b2 vax YAHAIRA LONG [facility] 08-28-2020 COVID-19 mRNASue (Pfizer) MD Catracho Willis Work Phone: [facility] 08-11-2020 COVID-19 mRNASue (Pfizer) MD Catracho Willis Work Phone: [facility] NEGATED: Highlighted row has not occurred!06-24-2023 influenza virus vaccine, unspecified formulation Tonia BARB [facility] Payers Date Payer Category Payer Medicare [facility] MEDICARE ADVANTAGE [facility] MEDICARE ADV[facility] [id number] 2022-Present [address] [place] [address] [id number] 2022 Medicare [id number] 2021 Medicaid [id number] 2021 Self-pay [id number] 2021 Unknown [id number] 2018 Unknown [id number] 1959 Medicare [id number] 2.16.840.1.943672.19 1954 Unknown [id number] 2.16.840.1.425570.3.579.2.173 1954 Unknown [id number] 2.16.840.1.841900.3.579.2.593 1954 Unknown [id number] 2.16.840.1.916776.3.579.2.593 1954 Unknown [id number] 2.16.840.1.144342.3.579.2.593 1954 Unknown [id number] 2.16.840.1.022562.3.579.2.593 1954 Unknown [id number] 2.16.840.1.781408.3.579.2.593 1954 Unknown [id number] 2.16.840.1.077448.3.579.2.593 1954 Unknown [id number] 2.16.840.1.654438.3.579.2.1259 1954 Unknown [id number] 2.16.840.1.984978.3.579.2.1259 1954 Unknown [id number] 2.16.840.1.379122.3.579.2.1259 1954 Unknown [id number] 2.16.840.1.189274.3.579.2.727 1954 Unknown [id number] 2.16.840.1.986103.3.579.2.727 1954 Unknown [id number] 2.16.840.1.318325.3.579.2.727 1954 Unknown [id number] 2.16.840.1.427568.3.579.2.727 1954 Unknown [id number] 2.16.840.1.099796.3.579.2.727 1954 Unknown [id number] 2.840.1.456337.3.579.2.72 1954 Unknown [id number] 2.16.840.1.610455.3.579.2.72 1954 Unknown [id number] 2.840.1.855681.3.579.2. 1954 Unknown [id number] 2.840.1.721090.3.579.2.72 1954 Unknown [id number] .0.1.333375.3.579.2. 1954 Unknown [id number] .840.1.263197.3.579.2. 1954 Unknown [id number] .840.1.171855.3.579.2. 1954 Unknown [id number] .840.1.263617.3.579.2. 1954 Unknown [id number] .840.1.739679.3.579.2. 1954 Unknown [id number] .840.1.858362.3.579.2.72 Unknown [place] BC/BS [id number] Unknown [id number] .840.1.005623.3.579.2.531 Unknown [id number] .16840.1.579501.3.579.2.531 Unknown [id number] 2.16840.1.776904.3.579.2.531 Unknown [id number] 2.840.1.857434.3.579.2.531 Unknown [id number] .840.1.751959.3.579.2.531 Unknown [id number] 2.16.840.1.703482.3.579.2.531 Unknown [id number] 2.16.840.1.508603.3.579.2.531 Unknown [id number] 2.16.840.1.708892.3.579.2.531 Unknown [id number] 2.16.840.1.472899.3.579.2.531 Social History Date Type Detail Facility Start: 04-02-2023 End: 12-16-[address] [facility] Start: 07-05-2021 End: 07-05-2021 Tobacco smoking status NHIS Smoker (finding) [facility] Start: 1955 Sex Assigned At Male F [facility] Start: 09-05-2020 Tobacco smoking status Never s moked tobacco (finding) [facility] Start: 06-05-2022 End: 04-20-2024 Tobacco smoking status Heavy tobacco smoker (finding) [facility] Tobacco smoking status Never [facility] Start: 03-24-1972 Tobacco smoking stat [facility] Smokes tobacco daily [facility] Start: 03-24-1972 History of tobacco use Cigarette Smo ker [facility] Start: 04-02-2023 End: 12-16-2023 Cigarettes smoked current (pack per day) - Reported 1 [facility] Start: 04-02-2023 Tobacco use and exposure Smokeless tobacco non-user [facility] Start: 1955 Sex assigned at Not on file [facility] Medical Equipment Procedure Code Equipment Code Equipment Origin al Text Equipment Identifier Dates Arthroplasty, knee, total, minimally invasive Orthopaedic cement, non-medicated [id number] FDA Start: 07-05-2021 Arthroplasty, knee, total, minimally invasive Coated knee femur prosthesis [id number] FDA Start: 07-05-2021 Arthroplasty, knee, total, minimally invasive Tibial insert [id number] FDA Start: 07-05-2021 Arthroplasty, knee, total, minimally invasive Polyethylene patella prosthesis [id number] FDA Start: 07-05-2021 Arthroplasty, knee, total, minimally invasive Uncoated knee tibia prosthesis, metallic [id number] FDA Start: 07-05-2021 Functional Status Date Assessment Result Facility 04-20-2024 Functional Status N/A [facility] 01-06-2024 Functional Status N/A [facility] 11-20-2023 Functional Status N/A [facility] 11-06-2023 Functional Status N/A [facility] 09-30-2023 Functional Status N/A [facility] 06-24-2023 Functional Status N/A [facility] 05-13-2023 Functional Status N/A [facility] 05-05-2023 Functional Status N/A [facility] 03-03-2023 Functional Status N/A [facility] 01-17-2023 Functional Status N/A [facility] 12-10-2022 Functional Status N/A [facility] 10-22-2022 Functional Status N/A [facility] 10-08-2022 Functional Status N/A [facility] 09-17-2022 Functional Status N/A [facility] 09-10-2022 Functional Status N/A [facility] 09-03-2022 Functional Status N/A [facility] 08-27-2022 Functional Status N/A [facility] 07-26-2022 Functional Status N/A [facility] 01-07-2022 Functional Status N/A [facility] Clinical Notes 06-28-2010 to 04-20-2024 Catracho Willis MD - 12/16/2023 12:16 PM Sabrina Willis MD - 12/16/2023 12:16 PM Sabrina Willis MD - 12/16/2023 11:00 AM EDT Note Date & Type Note Facility 04-20-2024 Hospital Discharge instructions Patient Education 04/20/2024 14:55:56 Cancer Screening for Males Cancer Screening for Males A cancer screening is a test or exam that checks for cancer. Work with your health care provider to create a cancer screening schedule that protects your health. Who should have screening? All people who are male should be considered for screening of certain cancers, including colorectal cancer, prostate cancer, lung cancer, and skin cancer. Your health care provider may recommend screenings for other types of cancer if: You have had cancer before. You have a family member with cancer. You have genes that could increase the risk of cancer. You have risk factors for certain cancers, such as current or past use of tobacco products or being overweight. What are the benefits of screening? Cancer screening is done to look for cancer in the very early stages, before it spreads and becomes harder to treat and before you would start to notice symptoms. Finding cancer early improves the chances of successful treatment. It may save your life. When should I be screened for cancer? When you should be screened for cancer depends on: Your age. Your medical history and your family's medical history. Certain lifestyle factors, such as smoking or other use of tobacco products. Environmental exposure, such as to asbestos. How is screening done? Colorectal cancer Colorectal cancer screening looks for cancer or for growths called polyps that often form before cancer starts. Tests to look for cancer or polyps include: Colonoscopy or flexible sigmoidoscopy. For these procedures, a flexible tube with a small camera is inserted into the rectum. CT colonography. This test uses X-rays and a contrast dye to check the colon for polyps. Tests to look for cancer in the [...] home and send it to a lab. All adults should have screenings starting at 45 years old and continuing through 75 years old. For males 76 85 years old, the decision to be screened should be based on a person's preferences, life expectancy, overall health, and prior screening history. Your health care provider may recommend screening before 45 years old. You will have tests every 1 10 years, depending on your results and the type of screening test. People at increased risk should start screening at an earlier age. Talk with your health care provider about which screening test is right for you and how often you should be screened. Prostate cancer Prostate cancer screening is done with blood tests and a digital rectal exam. During this exam, a health care provider uses a gloved finger to check prostate size. You may need to be screened for prostate cancer if: You have risk factors for prostate cancer, such as being an person or having a close family member with [...] on the results of your blood tests. Prostate cancer screening for males with average risk may start at 50 years old. Males with risk factors may need to be screened earlier, at 40 45 years old. Talk with your health care provider about whether screening is right for you and, if so, how often you should be screened. Lung cancer Lung cancer screening is done [...] packs a day for 10 years. You may need to be screened [...] provider right away if anything looks unusual. Males with a ciktce-lzyy-oevmfy risk for skin cancer may want to see a dinkey skinner (site technician) for an annual body check. Where to find more information [place] [employer]: cancer.org Centers for Disease Control and Prevention: cdc.gov National Cancer [place]: cancer.gov Contact a health care provider if: You have concerns about any signs or symptoms of cancer. These may include: ?Skin problems. You may have: ?Moles of an unusual shape or color. ?Changes in existing moles. ?A sore on your skin that does not heal. ?Tiredness (fatigue) that does not go away. ?Losing weight without trying. ?Blood in your urine or stool. ?Problems with urination. You may have: ?Changes in urination habits. ?Painful urination. ?Painful ejaculation. ?Problems with coughing or breathing. These may include: ?Coughing or trouble breathing that does not go away. ?Coughing up blood. ?Frequent pain or cramping in your abdomen. This information is not intended to replace advice given to you by your health care provider. Make sure you discuss any questions you have with your health care provider. Document Revised: 03/18/2023 Document Reviewed: 09/30/2022 [employer] Patient Education 2023 [employer]. Follow Up Care 04/01/2024 13:22:55 With:BARB RAMIREZ, Tonia Vasquez, URL Address: [facility] [address] , [place] [address]- When: Unknown [facility] 04-20-2024 Note Patient Education Oncology Cancer Screening for Males A cancer screening is a test or exam that checks for cancer. Work with your health care provider to create a cancer screening schedule that protects your health. Who should have screening? All people who are male should be considered for screening of certain cancers, including colorectal cancer, prostate cancer, lung cancer, and skin cancer. Your health care provider may recommend screenings for other types of cancer if: ??? You have had cancer before. ??? You have a family member with cancer. ??? You have genes that could increase the risk of cancer. ??? You have risk factors for certain cancers, such as current or past use of tobacco products or being overweight. What are the benefits of screening? Cancer screening is done to look for cancer in the very early stages, before it spreads and becomes harder to treat and before you would start to notice symptoms. Finding cancer early improves the chances of successful treatment. It may save your life. When should I be screened for cancer? When you should be screened for cancer depends on: ??? Your age. ??? Your medical history and your family's medical history. ??? Certain lifestyle factors, such as smoking or other use of tobacco products. ??? Environmental exposure, such as to asbestos. How is screening done? Colorectal cancer Colorectal cancer screening looks for cancer or for growths called polyps that often form before cancer starts. Tests to look for cancer or polyps include: ??? Colonoscopy or flexible sigmoidoscopy. For these procedures, a flexible tube with a small camera is inserted into the rectum. ??? CT colonography. This test uses X-rays and a contrast dye to check the colon for polyps. Tests to look for cancer in the stool (feces) include: ??? Guaiac-based fecal occult blood test (FOBT). This test can find blood in stool. It can be done at home with a kit. ??? Fecal immunochemical test (FIT). This test can find blood in stool. For this test, you will need to collect stool samples at home. ??? Stool DNA test. This test looks for blood in stool and any changes in DNA that can lead to colon cancer. For this test, you will need to collect a stool sample at home and send it to a lab. All adults should have screenings starting at 45 years old and continuing through 75 years old. For males 76?85 years old, the decision to be screened should be based on a person's preferences, life expectancy, overall health, and prior screening history. Your health care provider may recommend screening before 45 years old. You will have tests every 1?10 years, depending on your results and the type of screening test. People at increased risk should start screening at an earlier age. Talk with your health care provider about which screening test is right for you and how often you should be screened. Prostate cancer Prostate cancer screening is done with blood tests and a digital rectal exam. During this exam, a health care provider uses a gloved finger to check prostate size. You may need to be screened for prostate cancer if: ??? You have risk factors for prostate cancer, such as being an person or having a close family member with prostate cancer. ??? You have had gene changes or a genetic condition that was passed on to you from a parent (inherited). These gene changes or genetic conditions include BRCA1 or BRCA2 gene mutations or Obrien syndrome. ??? You have symptoms of prostate cancer, such as problems urinating or problems getting or keeping an erection (erectile dysfunction). When you have been screened for prostate cancer, future screening may be recommended based on the results of your blood tests. Prostate cancer screening for males with average risk may start at 50 years old. Males with risk factors may need to be screened earlier, at 40?45 years old. Talk with your health care provider about whether screening is right for you and, if so, how often you should be screened. Lung cancer Lung cancer screening is done with a CT scan that looks for abnormal changes in the lungs. Discuss lung cancer screening with your health care provider if you are 50?80 years old and if any of the following apply to you: ??? You currently smoke. ??? You used to smoke heavily. ??? You have a smoking history of 1 pack of cigarettes a day for 20 years or 2 packs a day for 10 years. You may need to be screened [...] provider right away if anything looks unusual. Males with a muivto-tmuk-pmaznq risk for skin cancer may want to see a dinkey skinner (dermatologi (more content not included)... [facility] 04-20-2024 Evaluation + Plan note Diagnostic Tests PendingUroVysion Fish and Urine Cyto ([facility]) 04/20/24 [facility] 01-06-2024 Hospital Discharge instructions Patient Education 01/06/2024 14:20:04 Erectile Dysfunction Erectile Dysfunction Erectile dysfunction (ED) is the inability to get or keep an erection in order to have sexual intercourse. ED is considered a symptom of an underlying disorder and is not considered a disease. ED may include: Inability to get an erection. Lack of enough hardness of the erection to allow penetration. Loss of erection before sex is finished. What are the causes? This condition may be caused by: Physical causes, such as: ?Artery problems. This may include heart disease, high blood pressure, atherosclerosis, and diabetes. ?Hormonal problems, such as low testosterone. ?Obesity. ?Nerve problems. This may include back or pelvic injuries, multiple sclerosis, Parkinson's disease, spinal cord injury, and stroke. Certain medicines, such as: ?Pain relievers. ?Antidepressants. ?Blood pressure medicines and water pills (diuretics). ?Cancer medicines. ?Antihistamines. ?Muscle relaxants. Lifestyle factors, such as: ?Use of drugs such as marijuana, cocaine, or opioids. ?Excessive use of alcohol. ?Smoking. ?Lack of physical activity or exercise. Psychological causes, such as: ?Anxiety or stress. ?Sadness or depression. ?Exhaustion. ?Fear about sexual performance. ?Guilt. What are the signs or symptoms? Symptoms of this condition include: Inability to get an erection. Lack of enough hardness of the erection to allow penetration. Loss of the erection before sex is finished. Sometimes having normal erections, but with frequent unsatisfactory episodes. Low sexual satisfaction in either partner due to erection problems. A curved penis occurring with erection. The curve may cause pain, or the penis may be too curved to allow for intercourse. Never having nighttime or morning erections. How is this diagnosed? This condition is often diagnosed by: Performing a physical exam to find other diseases or specific problems with the penis. Asking you detailed questions about the problem. Doing tests, such as: ?Blood tests to check for diabetes mellitus or high cholesterol, or to measure hormone levels. ?Other tests to check for underlying health conditions. ?An ultrasound exam to check for scarring. ?A test to check blood flow to the penis. Doing a sleep study at home to measure nighttime erections. How is this treated? This condition may be treated by: Medicines, such as: ?Medicine taken by mouth to help you achieve an erection (oral medicine). ?Hormone replacement therapy to replace low testosterone levels. ?Medicine that is injected into the penis. Your health care provider may instruct you how to give yourself these injections at home. ?Medicine that is delivered with a short applicator tube. The tube is inserted into the opening at the tip of the penis, which is the opening of the urethra. A tiny pellet of medicine is put in the urethra. The pellet dissolves and enhances erectile function. This is also called MUSE (medicated urethral system for erections) therapy. Vacuum pump. This is a pump with a ring on it. The pump and ring are placed on the penis and used to create pressure that helps the penis become erect. Penile implant surgery. In this procedure, you may receive: ?An inflatable implant. This consists of cylinders, a pump, and a reservoir. The cylinders can be inflated with a fluid that helps to create an erection, and they can be deflated after intercourse. ?A semi-rigid implant. This consists of two silicone rubber rods. The rods provide some rigidity. They are also flexible, so the penis can both curve downward in its normal position and become straight for sexual intercourse. Blood vessel surgery to improve blood flow to the penis. During this procedure, a blood vessel from a different part of the body is placed into the penis to allow blood to flow around (bypass) damaged or blocked blood vessels. Lifestyle changes, such as exercising more, losing weight, and quitting smoking. Follow these instructions at home: Medicines Take kjte-eos-ejhnkur and prescription medicines only as told by your health care provider. Do not increase the dosage without first discussing it with your health care provider. If you are using self-injections, do injections as directed by your health care provider. Make sure you avoid any veins that are on the surface of the penis. After giving an injection, apply pressure to the injection site for 5 minutes. Talk to your health care provider about how to prevent headaches while taking ED medicines. These medicines may cause a sudden headache due to the increase in blood flow in your body. General instructions Exercise regularly, as directed by your health care provider. Work with your health care provider to lose weight, if needed. Do not use any products that contain nicotine or tobacco. These products include cigarettes, chewing tobacco, and vaping devices, such as e-cigarettes. If you need help quitting, ask your health care provider. Before using a vacuum pump, read the instructions that come with the pump and discuss any questions with your health care provider. Keep all follow-up visits. This is important. Contact a health care provider if: You feel nauseous. You are vomiting. You get sudden headaches while taking ED medicines. You have any concerns about your sexual health. Get help right away if: You are taking oral or injectable medicines and you have an erection that lasts longer than 4 hours. If your health care provider is unavailable, go to the nearest emergency room for evaluation. An erection that lasts much longer than 4 hours can result in permanent damage to your penis. You have severe pain in your groin or abdomen. You develop redness or severe swelling of your penis. You have redness spreading at your groin or lower abdomen. You are unable to urinate. You experience chest pain or a rapid heartbeat (palpitations) after taking oral medicines. These symptoms may represent a serious problem that is an emergency. Do not wait to see if the symptoms will go away. Get medical help right away. Call your local emergency services (911 in the [place] Do not drive yourself to the hospital. Summary Erectile dysfunction (ED) is the inability to get or keep an erection during sexual intercourse. This condition is diagnosed based on a physical exam, your symptoms, and tests to determine the cause. Treatment varies depending on the cause and may include medicines, hormone therapy, surgery, or a vacuum pump. You may need follow-up visits to make sure that you are using your medicines or devices correctly. Get help right away if you are taking or injecting medicines and you have an erection that lasts longer than 4 hours. This information is not intended to replace advice given to you by your health care provider. Make sure you discuss any questions you have with your health care provider. Document Revised: 06/06/2021 Document Reviewed: 06/06/2021 [employer] Patient Education 2023 [employer]. 01/06/2024 14:10:50 Cancer Screening for Males Cancer Screening for Males A cancer screening is a test or exam that checks for cancer. Work with your health care provider to create a cancer screening schedule that protects your health. Who should have screening? All people who are male should be considered for screening of certain cancers, including colorectal cancer, prostate cancer, lung cancer, and skin cancer. Your health care provider may recommend screenings for other types of cancer if: You have had cancer before. You have a family member with cancer. You have genes that could increase the risk of cancer. You have risk factors for certain cancers, such as current or past use of tobacco products or being overweight. What are the benefits of screening? Cancer screening is done to look for cancer in the very early stages, before it spreads and becomes harder to treat and before you would start to notice symptoms. Finding cancer early improves the chances of successful treatment. It may save your life. When should I be screened for cancer? When you should be screened for cancer depends on: Your age. Your medical history and your family's medical history. Certain lifestyle factors, such as smoking or other use of tobacco products. Environmental exposure, such as to asbestos. How is screening done? Colorectal cancer Colorectal cancer screening looks for cancer or for growths called polyps that often form before cancer starts. Tests to look for cancer or polyps include: Colonoscopy or flexible sigmoidoscopy. For these procedures, a flexible tube with a small camera is inserted into the rectum. CT colonography. This test uses X-rays and a contrast dye to check the colon for polyps. Tests to look for cancer in the [...] home and send it to a lab. All adults should have screenings starting at 45 years old and continuing through 75 years old. For males 76 85 years old, the decision to be screened should be based on a person's preferences, life expectancy, overall health, and prior screening history. Your health care provider may recommend screening before 45 years old. You will have tests every 1 10 years, depending on your results and the type of screening test. People at increased risk should start screening at an earlier age. Talk with your health care provider about which screening test is right for you and how often you should be screened. Prostate cancer Prostate cancer screening is done with blood tests and a digital rectal exam. During this exam, a health care provider uses a gloved finger to check prostate size. You may need to be screened for prostate cancer if: You have risk factors for prostate cancer, such as being an person or having a close family member with [...] on the results of your blood tests. Prostate cancer screening for males with average risk may start at 50 years old. Males with risk factors may need to be screened earlier, at 40 45 years old. Talk with your health care provider about whether screening is right for you and, if so, how often you should be screened. Lung cancer Lung cancer screening is done [...] packs a day for 10 years. You may need to be screened [...] provider right away if anything looks unusual. Males with a fdhnle-wuno-wvktcv risk for skin cancer may want to see a dinkey skinner (site technician) for an annual body check. Where to find more information [place] [employer]: cancer.org Centers for Disease Control and Prevention: cdc.gov National Cancer [place]: cancer.gov Contact a health care provider if: You have concerns about any signs or symptoms of cancer. These may include: ?Skin problems. You may have: ?Moles of an unusual shape or color. ?Changes in existing moles. ?A sore on your skin that does not heal. ?Tiredness (fatigue) that does not go away. ?Losing weight without trying. ?Blood in your urine or stool. ?Problems with urination. You may have: ?Changes in urination habits. ?Painful urination. ?Painful ejaculation. ?Problems with coughing or breathing. These may include: ?Coughing or trouble breathing that does not go away. ?Coughing up blood. ?Frequent pain or cramping in your abdomen. This information is not intended to replace advice given to you by your health care provider. Make sure you discuss any questions you have with your health care provider. Document Revised: 03/18/2023 Document Reviewed: 09/30/2022 [employer] Patient Education 2023 Taste Kitchen. Follow Up Care 12/04/2023 11:26:46 With:BARB RAMIREZ, Tonia Vasquez, URL Address: [facility] [address] , [place] [address]- When: Unknown [facility] 01-06-2024 Note Patient Education Oncology Cancer Screening for Males A cancer screening is a test or exam that checks for cancer. Work with your health care provider to create a cancer screening schedule that protects your health. Who should have screening? All people who are male should be considered for screening of certain cancers, including colorectal cancer, prostate cancer, lung cancer, and skin cancer. Your health care provider may recommend screenings for other types of cancer if: ? You have had cancer before. ? You have a family member with cancer. ? You have genes that could increase the risk of cancer. ? You have risk factors for certain cancers, such as current or past use of tobacco products or being overweight. What are the benefits of screening? Cancer screening is done to look for cancer in the very early stages, before it spreads and becomes harder to treat and before you would start to notice symptoms. Finding cancer early improves the chances of successful treatment. It may save your life. When should I be screened for cancer? When you should be screened for cancer depends on: ? Your age. ? Your medical history and your family's medical history. ? Certain lifestyle factors, such as smoking or other use of tobacco products. ? Environmental exposure, such as to asbestos. How is screening done? Colorectal cancer Colorectal cancer screening looks for cancer or for growths called polyps that often form before cancer starts. Tests to look for cancer or polyps include: ? Colonoscopy or flexible sigmoidoscopy. For these procedures, a flexible tube with a small camera is inserted into the rectum. ? CT colonography. This test uses X-rays and a contrast dye to check the colon for polyps. Tests to look for cancer in the [...] home and send it to a lab. All adults should have screenings starting at 45 years old and continuing through 75 years old. For males 76?85 years old, the decision to be screened should be based on a person's preferences, life expectancy, overall health, and prior screening history. Your health care provider may recommend screening before 45 years old. You will have tests every 1?10 years, depending on your results and the type of screening test. People at increased risk should start screening at an earlier age. Talk with your health care provider about which screening test is right for you and how often you should be screened. Prostate cancer Prostate cancer screening is done with blood tests and a digital rectal exam. During this exam, a health care provider uses a gloved finger to check prostate size. You may need to be screened for prostate cancer if: ? You have risk factors for prostate cancer, such as being an person or having a close family member with [...] on the results of your blood tests. Prostate cancer screening for males with average risk may start at 50 years old. Males with risk factors may need to be screened earlier, at 40?45 years old. Talk with your health care provider about whether screening is right for you and, if so, how often you should be screened. Lung cancer Lung cancer screening is done [...] packs a day for 10 years. You may need to be screened [...] provider right away if anything looks unusual. Males with a ocpnoh-epug-iitshf risk for skin cancer may want to see a dinkey skinner (site technician) for an annual body check. Where (more content not included)... [facility] 01-06-2024 Evaluation + Plan note Diagnostic Tests PendingUroVysion Fish and Urine Cyto ([facility]) 01/06/24 [facility] 12-16-2023 History of Present illness Narrative Associated Problem(s): Medicare annual wellness visit, subsequent Due for labs. Discussed proper diet and regular aerobic exercise. Need aerobic exercise 5-6 days a week for 30 minutes at a time. Smaller portions and limit total calories. Colonoscopy every 10 years. Tetanus every 10 years. Advised not to smoke. Discussed daily Aspirin therapy. Associated Problem(s): Bladder cancer (CMS/HCC) Follow with urology. Subjective Patient ID: Darian Duenas is a 68 y.o. male who presents for Medicare Annual Wellness Visit Subsequent (wellness). Presents for medicare annual wellness visit. Patient feels well today. Weight unchanged since last visit. Active and tries to walk and exercise several days a week. Tries to watch diet and eat healthy. Increased fruits and vegetables. Smaller portions and limits snacking. Tries to limit total daily calories. Due for labs. LDCT chest normal in December. Continues to smoke and trying to cut back. Following with urology for bladder cancer and had BCG treatments. Review of Systems Constitutional: Negative for fatigue. Respiratory: Negative for cough, shortness of breath and wheezing. Cardiovascular: Negative for chest pain and palpitations. Gastrointestinal: Negative for abdominal pain, diarrhea, nausea and vomiting. Genitourinary: Negative for dysuria. Objective Physical Exam Constitutional: General: He is not in acute distress. Appearance: Normal appearance. HENT: Head: Normocephalic. Right Ear: Tympanic membrane and ear canal normal. Left Ear: Tympanic membrane and ear canal normal. Eyes: Extraocular Movements: Extraocular movements intact. Pupils: Pupils are equal, round, and reactive to light. Cardiovascular: Rate and Rhythm: Normal rate and regular rhythm. Heart sounds: No murmur heard. No friction rub. No gallop. Pulmonary: Breath sounds: Normal breath sounds. No wheezing, rhonchi or rales. Abdominal: General: Bowel sounds are normal. There is no distension. Palpations: Abdomen is soft. Tenderness: There is no abdominal tenderness. There is no guarding or rebound. Musculoskeletal: General: Normal range of motion. Left lower leg: No edema. Neurological: General: No focal deficit present. Mental Status: He is alert. Cranial Nerves: No cranial nerve deficit. Deep Tendon Reflexes: Reflexes normal. Assessment/Plan Problem List Items Addressed This Visit Prediabetes Relevant Orders Hemoglobin A1c Bladder cancer ([facility]/HCC) Follow with urology. Encounter for long-term (current) use of medications Relevant Orders Basic metabolic panel CBC and differential Hepatic function panel Medicare annual wellness visit, subsequent - Primary Due for labs. Discussed proper diet and regular aerobic exercise. Need aerobic exercise 5-6 days a week for 30 minutes at a time. Smaller portions and limit total calories. Colonoscopy every 10 years. Tetanus every 10 years. Advised not to smoke. Discussed daily Aspirin therapy. Screening PSA (prostate specific antigen) Relevant Orders PSA Other Visit Diagnoses Dyslipidemia (CMS/HCC) Relevant Orders Lipid panel documented in this encounter [facility] 11-20-2023 Hospital Discharge instructions Patient Education 11/20/2023 [...] not available, use an alcohol based hand stock control clerk that contains at least 60% alcohol. Have [...] keep your urine pale yellow. Medicines Take egsh-vsx-urrmdtn and prescription medicines only as told by [...] the type of cancer being treated. Take pdgz-jub-hkjbaci and prescription medicines only as told by your health care provider. This information is not intended to replace advice given to you by your health care provider. Make sure you discuss any questions you have with your health care provider. Document Revised: 01/01/2022 Document Reviewed: 01/01/2022 [employer] Patient Education 2022 [employer]. Follow Up Care 10/28/2023 15:46:45 With:BARB RAMIREZ, Tonia Vasquez, URL Address: [facility] [address], [place] [address]- [phone] When: Unknown Comments:sched surveillance cysto 12/2023 [facility] [place] 11-20-2023 Note Patient Education Oncology Chemotherapy Chemotherapy [...] not available, use an alcohol based hand stock control clerk that contains at least 60% alcohol. Have [...] your health care (more content not included)... [facility] 11-13-2023 Hospital Discharge instructions Patient Education 11/13/2023 [...] if anything looks unusual. Men with a bijtun-mcqc-kzfpaq risk for skin cancer may want to see a dinkey skinner (site technician) for an annual body check. What are the benefits of screening? Cancer screening is done to look for cancer in the very early stages, before it spreads and becomes harder to treat and before you would start to notice symptoms. Finding cancer early improves the chances of successful treatment. It may save your life. Where to find more information [place] [employer]: www.cancer.org Centers for Disease Control and Prevention: www.cdc.gov National Cancer [place]: www.cancer.gov Contact a health care provider if: [...] provider. Document Revised: 08/06/2021 Document Reviewed: 02/04/2020 [employer] Patient Education 2022 [employer]. Follow Up Care 10/28/2023 15:39:59 With:ETHAN VILLALTA YAHAIRA [employer], URL Address: [address] [place] [address] When: Unknown Comments:BCG #3 of 3 in 1 week [facility] 11-13-2023 Note Patient Education Oncology Cancer [...] if anything looks unusual. Men with a ltmmaq-oakx-xfoaoo risk for skin cancer may want to see a dinkey skinner (site technician) for an annual body check. What are the benefits of screening? Cancer screening is done to look for cancer in the very early stages, before it spreads and becomes harder to treat and before you would start to notice symptoms. Finding cancer early improves the chances of success (more content not included)... [facility] 11-06-2023 Hospital Discharge instructions Patient Education 11/06/2023 [...] cells. Follow these instructions at home: Take efhr-kzq-niwunmd and prescription medicines only as told by [...] is important. Where to find more information [place] [employer] (ACS): cancer.org National Cancer [place] (NCI): cancer.gov Contact a health care provider [...] provider. Document Revised: 02/18/2022 Document Reviewed: 02/18/2022 [employer] Patient Education 2022 Taste Kitchen. Follow Up Care 10/28/2023 15:36:25 With:ETHAN VILLALTA, YAHAIRA Hallman, URL Address: [address] [place] [address] When: Unknown Comments:1 week for BCG #2 of 3 half dose [facility] 11-06-2023 Note Patient Education Oncology Bladder Cancer [...] Follow these instructions at home: ? Take qurx-bjq-liactje and prescription medicines only as told by [...] important. Where to find more information ? [place] [employer] (ACS): cancer.org ? National Cancer [place] (NCI): cancer.gov Contact a health care provider [...] discuss any q (more content not included)... [facility] 09-30-2023 Hospital Discharge instructions Patient Education 09/30/2023 [...] if anything looks unusual. Men with a vqsxgp-oooa-rtiwkk risk for skin cancer may want to see a dinkey skinner (site technician) for an annual body check. What are the benefits of screening? Cancer screening is done to look for cancer in the very early stages, before it spreads and becomes harder to treat and before you would start to notice symptoms. Finding cancer early improves the chances of successful treatment. It may save your life. Where to find more information [place] [employer]: www.cancer.org Centers for Disease Control and Prevention: www.cdc.gov National Cancer [place]: www.cancer.gov Contact a health care provider if: [...] provider. Document Revised: 08/06/2021 Document Reviewed: 02/04/2020 Can[employer] Patient Education 2022 Taste Kitchen. Follow Up Care 08/08/2023 12:56:50 With:BARB RAMIREZ, Tonia Vasquez, URL Address: [facility] [address] , [place] [address] [phone] When: Unknown Comments:schedule 3 BCGs, cyst in 3 mos [facility] 09-30-2023 Note Patient Education Oncology Cancer Screening [...] if anything looks unusual. Men with a rtcbxn-cnsq-rpvikt risk for skin cancer may want to see a dinkey skinner (site technician) for an annual body check. What are the benefits of screening? Cancer screening is done to look for cancer in the very early stages, before it spreads and becomes harder to treat and before you would start to notice symptoms. Finding cancer early improves the chances of success (more content not included)... [facility] 09-30-2023 Evaluation + Plan note Diagnostic Tests PendingUroVysion Fish and Urine Cyto ([facility]) 09/30/23 [facility] 06-24-2023 Hospital Discharge instructions Patient Education [...] if anything looks unusual. Men with a gdkkbt-abat-ptnqwc risk for skin cancer may want to see a dinkey skinner (site technician) for an annual body check. What are the benefits of screening? Cancer screening is done to look for cancer in the very early stages, before it spreads and becomes harder to treat and before you would start to notice symptoms. Finding cancer early improves the chances of successful treatment. It may save your life. Where to find more information [place] [employer]: www.cancer.org Centers for Disease Control and Prevention: www.cdc.gov National Cancer [place]: www.cancer.gov Contact a health care provider if: [...] provider. Document Revised: 08/06/2021 Document Reviewed: 02/04/2020 [employer] Patient Education 2022 Taste Kitchen. Follow Up Care 06/16/2023 14:01:03 With:BARB RAMIREZ, Tonia Vasquez, URL Address: [facility] [address], [place] [address] [phone] When: Unknown [facility] 06-24-2023 Evaluation + Plan note Diagnostic Tests PendingUroVysion Fish and Urine Cyto ([facility]) 06/24/23 [facility] 05-13-2023 Hospital Discharge instructions Patient Education [...] cells. Follow these instructions at home: Take nmtv-unc-xeslagc and prescription medicines only as told by [...] is important. Where to find more information [place] [employer] (ACS): cancer.org National Cancer [place] (NCI): cancer.gov Contact a health care provider [...] provider. Document Revised: 02/18/2022 Document Reviewed: 02/18/2022 Can[employer] Patient Education 2022 Taste Kitchen. Follow Up Care 03/28/2023 10:45:13 With:[facility] Address: [facility] [place] [address] Business (1) When: Unknown Comments:for procedure as scheduled [facility] 05-05-2023 Hospital Discharge instructions Patient Education 05/05/2023 [...] not available, use an alcohol based hand stock control clerk that contains at least 60% alcohol. Have [...] keep your urine pale yellow. Medicines Take laru-hec-cfiximi and prescription medicines only as told by [...] the type of cancer being treated. Take foua-zkz-xmedkmi and prescription medicines only as told by your health care provider. This information is not intended to replace advice given to you by your health care provider. Make sure you discuss any questions you have with your health care provider. Document Revised: 01/01/2022 Document Reviewed: 01/01/2022 [employer] Patient Education 2022 Taste Kitchen. Follow Up Care 03/28/2023 10:43:05 With:BARB RAMIREZ, Tonia Vasquez, URL Address: [facility] [address] , [place] [address] [phone] When: Unknown Comments:BCG #3/3 on 05/13/23 [facility] 03-28-2023 Evaluation note Encounter Date Diagnosis Assessment [...] no improvement in 2 to 3 days [facility] Other 12-11-2023 Hospital Discharge instructions Patient Education [...] cells. Follow these instructions at home: Take pked-koo-myormjy and prescription medicines only as told by [...] is important. Where to find more information [place] [employer] (ACS): cancer.org National Cancer [place] (NCI): cancer.gov Contact a health care provider [...] provider. Document Revised: 02/18/2022 Document Reviewed: 02/18/2022 [employer] Patient Education 2022 Taste Kitchen. Follow Up Care 01/17/2023 11:24:37 With:BARB RAMIREZ, Tonia Vasquez, URL Address: [facility] [address] , [place] [address]- When: Unknown Comments:After BCG treatments. [facility] 10-27-2023 Hospital Discharge instructions Patient Education 01/17/2023 [...] cells. Follow these instructions at home: Take qddt-lpg-kgaxxxl and prescription medicines only as told by [...] is important. Where to find more information [place] [employer] (ACS): cancer.org National Cancer [place] (NCI): cancer.gov Contact a health care provider [...] provider. Document Revised: 02/18/2022 Document Reviewed: 02/18/2022 [employer] Patient Education 2022 Taste Kitchen. Follow Up Care 12/12/2022 09:52:31 With:BARB RAMIREZ, Tonia Vasquez, URL Address: [address] [place], [place] [id number]- When: Unknown [facility] 09-19-2023 Hospital Discharge instructions Patient Education [...] cells. Follow these instructions at home: Take irhp-tth-ovpohvb and prescription medicines only as told by [...] is important. Where to find more information [place] [employer] (ACS): cancer.org National Cancer [place] (NCI): cancer.gov Contact a health care provider [...] provider. Document Revised: 02/18/2022 Document Reviewed: 02/18/2022 Canlife Patient Education 2022 [employer] Inc. Follow Up Care 10/29/2022 16:25:46 With:BARB RAMIREZ, Tonia Vasquez, URL Address: [facility] [address] , [place] [address] [phone] When: Unknown Comments:piter PONCE [facility] 08-01-2023 Hospital Discharge instructions Patient Education [...] cells. Follow these instructions at home: Take rnkp-kyr-xeusjwu and prescription medicines only as told by [...] is important. Where to find more information [place] [employer] Society (ACS): cancer.org National Cancer [place] (NCI): cancer.gov Contact a health care provider [...] provider. Document Revised: 02/18/2022 Document Reviewed: 02/18/2022 [employer] Patient Education 2022 Taste Kitchen. Follow Up Care 09/17/2022 13:12:31 With:BARB RAMIREZ, Tonia Vasquez, URL Address: [address] [place] [address] [place] [address] When: Unknown [facility] 07-18-2023 Hospital Discharge instructions Patient Education 10/08/2022 [...] cells. Follow these instructions at home: Take rwlc-hva-cadqbhi and prescription medicines only as told by [...] is important. Where to find more information [place] [employer] Society (ACS): cancer.org National Cancer [place] (NCI): cancer.gov Contact a health care provider [...] provider. Document Revised: 02/18/2022 Document Reviewed: 02/18/2022 Canlife Patient Education 2022 Taste Kitchen. Follow Up Care 08/01/2022 10:02:51 With:BARB RAMIREZ, Tonia Vasquez, URL Address: [address] [place] [address]- When: Unknown [facility] 06-27-2023 Hospital Discharge instructions Patient Education [...] cells. Follow these instructions at home: Take cfuk-zci-vdtpswv and prescription medicines only as told by [...] is important. Where to find more information [place] [employer] Society (ACS): cancer.org National Cancer [place] (NCI): cancer.gov Contact a health care provider [...] provider. Document Revised: 02/18/2022 Document Reviewed: 02/18/2022 Canlife Patient Education 2022 Taste Kitchen. Follow Up Care 08/01/2022 09:55:17 With:YAHAIRA LONG PA-C, URL Address: [address] [place] [address] [place] [address] When:Within 1 Week(s) Comments:Piter SILVERIO #4 [facility] 06-20-2023 Hospital Discharge instructions Patient Education [...] cells. Follow these instructions at home: Take zgzp-dzj-sqlzttp and prescription medicines only as told by [...] is important. Where to find more information [place] [employer] Society (ACS): cancer.org National Cancer [place] (NCI): cancer.gov Contact a health care provider [...] provider. Document Revised: 02/18/2022 Document Reviewed: 02/18/2022 Canlife Patient Education 2022 Taste Kitchen. Follow Up Care 08/01/2022 09:51:36 With:[facility] [place] Address: [address] [place] [address] Business (1) When: Unknown Comments:for procedure as scheduled [facility] 06-13-2023 Hospital Discharge instructions Patient Education [...] cells. Follow these instructions at home: Take fttq-mku-gdowmii and prescription medicines only as told by [...] is important. Where to find more information [place] [employer] Society (ACS): cancer.org National Cancer [place] (NCI): cancer.gov Contact a health care provider [...] provider. Document Revised: 02/18/2022 Document Reviewed: 02/18/2022 Canlife Patient Education 2022 Taste Kitchen. [facility] 06-06-2023 Hospital Discharge instructions Patient Education 08/27/2022 [...] Follow these instructions at home: Medicines Take elxa-lfn-fcwlheu and prescription medicines only as told by [...] provider. Document Revised: 10/20/2020 Document Reviewed: 10/20/2020 Canlife Patient Education 2022 Taste Kitchen. [facility] 05-05-2023 Hospital Discharge instructions Patient Education [...] cells. Follow these instructions at home: Take epdh-jcb-mioejup and prescription medicines only as told by [...] is important. Where to find more information [place] [employer] (ACS): cancer.org National Cancer [place] (NCI): cancer.gov Contact a health care provider [...] provider. Document Revised: 02/18/2022 Document Reviewed: 02/18/2022 Canlife Patient Education 2022 Taste Kitchen. Follow Up Care 07/16/2022 10:49:06 With:BARB RAMIREZ, Tonia Vasquez, URL Address: [address] [place] [address]- When: Unknown [facility] 04-26-2023 NotePROCEDURE: XR CHEST 2 V [...] workup and/or follow-up. Electronically authenticated by: NORMA NICOLASLIZA Date: 2022-07-17 09:32[facility]04-25-2023 Evaluation + Plan noteExtracted from: Title:Urology [...] Date:07/26/2022 08:30:00 AM Scheduled Provider:Tonia DEVRIES MD Location:[facility] Appointment Type:URO Office Visit Appointment Date:01/10/2023 10:45:00 AM Scheduled Provider:Tonia DEVRIES MD Location:[facility] Appointment Type:URO Office Visit Diagnostic Tests Pending * UroVysion Fish and Urine Cyto ([facility]) 07/16/22 [facility]04-25-2023 Hospital Discharge instructions Patient Education 07/16/2022 [...] [facility] [address], [place] [address]- Business (1) When: Unknown Comments:Office will call to schedule follow up [facility]03-20-2023 Evaluation note* Encounter Date Diagnosis Assessment [...] Primary osteoarthritis, right shoulder (ICD-10 - M19.011) [facility] Other 01-06-2023 Evaluation note* Encounter Date Diagnosis [...] Dr. Cooper for evaluation and further treatment. [facility] Other 10-17-2022 Hospital Discharge instructions Patient Education [...] if anything looks unusual. Men with a maipcj-isxo-argmkb risk for skin cancer may want to see a dinkey skinner (site technician) for an annual body check. Where to find more information National Cancer [place]: https://www.cancer.gov/about-cancer/screening Centers for Disease Control and Prevention: https://www.cdc.gov/cancer/dcpc/prevention/screening.htm [place] Cancer Society: https://www.cancer.org/latest-news/5-deamnv-oeolaotbe-rrdhc-mod-pnu.html Contact a health care provider if: You [...] 12/05/2016 Document Revised: 11/27/2018 Document Reviewed: 12/05/2016 Elsevier Patient Education 2020 Elsevier Inc. Follow Up Care 12/04/2020 12:10:49 With:BARB RAMIREZ, Tonia Vasquez, URL Address: [facility] [address], [place] [phone] When:01/07/2023 Comments:TAHMINA [facility] 09-12-2022 Evaluation note* Encounter Date Diagnosis Assessment [...] left hamstring, initial encounter (ICD-10 - S76.312A) [facility] Other 08-11-2022 Evaluation note* Encounter Date Diagnosis Assessment Notes Treatment Notes Treatment Clinical Notes Oct, Status post total left knee replacement (ICD-10 - Z96.652) [facility] Other 07-08-2022 Evaluation note* Encounter Date Diagnosis [...] left hamstring, initial encounter (ICD-10 - S76.312A) [facility] Other 05-27-2022 Evaluation note* Encounter Date Diagnosis [...] use of Tylenol as needed for pain. [facility] Other 05-11-2022 Evaluation note* Encounter Date Diagnosis [...] time. Continue icing for his hamstring ecchymosis. [facility] Other 04-27-2022 Evaluation note* Encounter Date Diagnosis [...] and strengthening exercises. Call with questions/concerns . [facility] Other 04-11-2022 Evaluation note* Encounter Date Diagnosis [...] was discussed. 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 I [...] M25.562) Jun, Pre-op exam (ICD-10 - Z01.818) [facility] Other 01-31-2022 Evaluation note* Encounter Date Diagnosis [...] pain of left knee (ICD-10 - M25.562) [facility] Other 12-20-2021 Evaluation note* Encounter Date Diagnosis [...] portal. He tolerated this well. Did discuss lspe-hkr-csuzbsk anti-inflammatory medications and handout has been given. [...] pain of left knee (ICD-10 - M25.562) [facility] Other 11-22-2021 Evaluation note* Encounter Date Diagnosis [...] pain of left knee (ICD-10 - M25.562) [facility] Other 10-20-2021 Evaluation note* Encounter Date Diagnosis [...] as documented in the electronic medical record. [facility] Other 04-07-2011 History general Narrative - Reported* Type Description Date Medical History knee pain Medical History Arthritis Medical History sleeping disorder Surgical History right total knee arthroplasty 4 /7/11 Surgical History bilateral shoulders [facility] Other 04-07-2011 History general Narrative - Reported* Type Description Date Medical History knee pain Medical History Arthritis Medical History sleeping disorder Medical History acid reflux Surgical History right partial knee arthroplasty 06/28/10 Surgical History bilateral shoulders [facility] Other 04-07-2011 History general Narrative - Reported* Type Description Date Medical History knee pain Medical History Arthritis Medical History sleeping disorder Medical History acid reflux Surgical History right partial knee arthroplasty 06/28/10 Surgical History bilateral shoulders Surgical History LT TKR 07/05/2021 [facility] Other 04-07-2011 History general Narrative - Reported* Type Description Date Medical History knee pain Medical History Arthritis Medical History sleeping disorder Medical History acid reflux Surgical History right partial knee arthroplasty 06/28/10 Surgical History bilateral shoulders Right Cuff Repair Surgical History LT TKR 07/05/2021 [facility] Other 04-07-2011 History general Narrative - Reported* Type Description Date Medical History knee pain Medical History Arthritis Medical History sleeping disorder Medical History acid reflux Surgical History right partial knee arthroplasty 06/28/10 Surgical History bilateral shoulders Right Cuff Repair Surgical History LT TKR 07/05/2021 Surgical History bladder cancer 2022 [facility] Other Evaluation + Plan note Future Appointments Appointment Date:01/10/2023 10:45:00 AM Scheduled Provider:Tonia DEVRIES MD Location:[facility] Appointment Type:URO Office Visit Diagnostic Tests Pending * PSA Total 01/07/22 [facility] evaluation + Plan note Future Appointments Appointment Date:01/10/2023 10:45:00 AM Scheduled Provider:Tonia DEVRIES MD Location:[facility] Appointment Type:URO Office Visit [facility] evaluation + Plan note Future Appointments Appointment Date:09/03/2022 08:45:00 AM Scheduled Provider:YAHAIRA LONG PA-C Location:[facility] Appointment Type:URO Office Visit Appointment Date:09/10/2022 08:45:00 AM Scheduled Provider:YAHAIRA LONG PA-C Location:[facility] Appointment Type:URO Office Visit Appointment Date:09/17/2022 08:45:00 AM Scheduled Provider:YAHAIRA LONG PA-C Location:[facility] Appointment Type:URO Office Visit Appointment Date:10/01/2022 08:45:00 AM Scheduled Provider:YAHAIRA LONG PA-C Location:[facility] Appointment Type:URO Office Visit Appointment Date:10/08/2022 08:45:00 AM Scheduled Provider:YAHAIRA LONG PA-C Location:[facility] Appointment Type:URO Office Visit Appointment Date:01/10/2023 10:45:00 AM Scheduled Provider:Tonia DEVRIES MD Location:[facility] Appointment Type:URO Office Visit [facility] evaluation + Plan note Future Appointments Appointment Date:09/03/2022 08:45:00 AM Scheduled Provider:YAHAIRA LONG PA-C Location:[facility] Appointment Type:URO Office Visit Appointment Date:09/10/2022 08:45:00 AM Scheduled Provider:YAHAIRA LONG PA-C Location:[facility] Appointment Type:URO Office Visit Appointment Date:09/17/2022 08:45:00 AM Scheduled Provider:YAHAIRA LONG PA-C Location:[facility] Appointment Type:URO Office Visit Appointment Date:10/01/2022 08:45:00 AM Scheduled Provider:YAHAIRA LONG PA-C Location:[facility] Appointment Type:URO Office Visit Appointment Date:10/08/2022 08:45:00 AM Scheduled Provider:YAHAIRA LONG PA-C Location:[facility] Appointment Type:URO Office Visit Appointment Date:01/10/2023 10:45:00 AM Scheduled Provider:Tonia DEVRIES MD Location:[facility] Appointment Type:URO Office Visit Diagnostic Tests Pending * [facility]ments Appointment Date:09/10/2022 08:45:00 AM Scheduled Provider:YAHAIRA LONG PA-C Location:[facility] Appointment Type:URO Office Visit Appointment Date:09/17/2022 08:45:00 AM Scheduled Provider:YAHAIRA LONG PA-C Location:[facility] Appointment Type:URO Office Visit Appointment Date:10/01/2022 08:45:00 AM Scheduled Provider:YAHAIRA LONG PA-C Location:[facility] Appointment Type:URO Office Visit Appointment Date:10/08/2022 08:45:00 AM Scheduled Provider:YAHAIRA LONG PA-C Location:[facility] Appointment Type:URO Office Visit Appointment Date:01/10/2023 10:45:00 AM Scheduled Provider:Tonia DEVRIES MD Location:[facility] Appointment Type:URO Office Visit [facility] evaluation + Plan note Future Appointments Appointment Date:09/17/2022 08:45:00 AM Scheduled Provider:YAHAIRA LONG PA-C Location:[facility] Appointment Type:URO Office Visit Appointment Date:10/01/2022 08:45:00 AM Scheduled Provider:YAHAIRA LONG PA-C Location:[facility] Appointment Type:URO Office Visit Appointment Date:10/08/2022 08:45:00 AM Scheduled Provider:YAHAIRA LONG PA-C Location:[facility] Appointment Type:URO Office Visit Appointment Date:01/10/2023 10:45:00 AM Scheduled Provider:Tonia DEVRIES MD Location:[facility] Appointment Type:URO Office Visit [facility] evaluation + Plan note Future Appointments Appointment Date:10/08/2022 08:45:00 AM Scheduled Provider:YAHAIRA LONG PA-C Location:[facility] Appointment Type:URO Office Visit Appointment Date:10/14/2022 09:30:00 AM Scheduled Provider:Tonia DEVRIES MD Location:[facility] Appointment Type:URO Office Visit Appointment Date:10/22/2022 08:45:00 AM Scheduled Provider:YAHAIRA LONG PA-C Location:[facility] Appointment Type:URO Office Visit Appointment Date:01/10/2023 10:45:00 AM Scheduled Provider:Tonia DEVRIES MD Location:[facility] Appointment Type:URO Office Visit [facility] evaluation + Plan note Future Appointments Appointment Date:10/14/2022 09:30:00 AM Scheduled Provider:Tonia DEVRIES MD Location:[facility] Appointment Type:URO Office Visit Appointment Date:10/22/2022 08:45:00 AM Scheduled Provider:YAHAIRA LONG PA-C Location:[facility] Appointment Type:URO Office Visit Appointment Date:01/10/2023 10:45:00 AM Scheduled Provider:Tonia DEVRIES MD Location:[facility] Appointment Type:URO Office Visit [facility] evaluation + Plan note Future Appointments Appointment Date:12/10/2022 01:30:00 PM Scheduled Provider:Tonia DEVRIES MD Location:[facility] Appointment Type:URO Procedure 15 min Diagnostic Tests Pending * [facility] Appointment Date:12/10/2022 01:30:00 PM Scheduled Provider:Tonia DEVRIES MD Location:[facility] [place] Appointment Type:URO Procedure 15 min [facility] evaluation + Plan note Future Appointments Appointment Date:03/03/2023 09:00:00 AM Scheduled Provider:Tonia DEVRIES MD Location:[facility] Appointment Type:URO Office Visit [facility] evaluation + Plan note Future Appointments Appointment Date:05/13/2023 09:00:00 AM Scheduled Provider:YAHAIRA LONG PA-C Location:[facility] Appointment Type:URO Office Visit [facility] evaluation + Plan note Future Appointments Appointment Date:06/24/2023 01:15:00 PM Scheduled Provider:Tonia DEVRIES MD Location:[facility] Appointment Type:URO Procedure 15 min [facility] evaluation + Plan note Future Appointments Appointment Date:11/13/2023 02:20:00 PM Scheduled Provider:YAHAIRA LONG PA-C Location:[facility] Appointment Type:URO Office Visit Appointment Date:11/20/2023 02:20:00 PM Scheduled Provider:YAHAIRA LONG PA-C Location:[facility] Appointment Type:URO Office Visit [facility] evaluation + Plan note Future Appointments Appointment Date:11/20/2023 02:20:00 PM Scheduled Provider:YAHAIRA LONG PA-C Location:[facility] Appointment Type:URO Office Visit [facility] evaluation noteNo InformationNort Zuznow Other Evaluation noteNo assessment information available [facility] Work Phone: Evaluation note* Diagnosis Medicare annual wellness visit, subsequent- Primary Prediabetes Other abnormal glucose Screening PSA (prostate specific antigen) Special screening for malignant neoplasm of prostate Encounter for long-term (current) use of medications Encounter for long-term (current) use of other medications Dyslipidemia (CMS/HCC) Other and unspecified hyperlipidemia Malignant neoplasm of urinary bladder, unspecified site (CMS/HCC) documented in this [facility] Narrative No data available for this section [facility] Hospital Discharge instructions No data available for this section [facility] No data available for this section [facility] Summary Purpose Family History No Family History [...] in right should er (M25.511) Referral Organization [facility] Referring Provider First Name Nahid Referring Provider Last Name Jesika Referring Provider Specialty Orthopedic Surgery Referred Organization [facility] Referred Provider Mickie Cooper Referred Address [address] [place], [place],[address] Referred Provider Specialty Orthopedic S urgery Referral [...] and content) DATE CREATED AUTHOR 08/24/2018 Elsa singh DATE CREATED AUTHOR AUTHOR'S ORGANIZ ATION 06/25/2022 [facility] DATE CREATED AUTHOR AUTHOR'S ORGANIZ ATION 07/31/2022 [facility] DATE CREATED AUTHOR AUTHOR'S ORGANIZ ATION 12/18/2023 [facility] EPIC DATE CREATED AUTHOR AUTHOR'S ORGANIZ ATION 03/17/2024 [facility] DATE CREATED AUTHOR AUTHOR'S ORGANIZ ATION 04/05/2024 [facility] DATE CREATED AUTHOR AUTHOR'S ORGANIZ ATION 04/22/2024 [facility] DATE CREATED AUTHOR AUTHOR'S ORGANIZ ATION 04/30/2024 [facility] REASON FOR VISIT (unrecogniz ed section and content) Reason Comments Medicare Annual Wellness Visit Subsequen t wellness Care Teams (unrecognized sec tion and content) Team Status: Inactive Member Role Status Dates Catracho Willis MD Primary Care Provider Active Nahid Canchola DO Attending Provider Active Team Status: Active Member Role Status Dates Catracho Willis MD Primary Care Provider Active Team Status: Inactive Member Role Status Dates Catracho Willis MD Primary Care Provider Active Mickie Cooper MD Attending Provider Active Director Clinical Applications Relationship Specialty Start Date End Date Catracho Willis MD [address] [place] [phone] PCP - General Family Medicine 08/20/23 Catracho Willis MD [address] [place] [phone] PCP - Aneudy ARANGO 08/23/23 Director Clinical Applications Relationship Specialty Start Date End Date Catracho Willis MD [address] [place] [phone] PCP - General Family Medicine 08/20/23 Catracho Willis MD [address] [place] [phone] PCP - nAeudy ARANGO 08/23/23 Director Clinical Applications Relationship Specialty Start Date End Date Catracho Willis MD [address] [place] [phone] PCP - General Family Medicine 08/20/23 Catracho Willis MD [address] [place] [phone] PCP - Aneudy ARANGO 08/23/23 Goals (unrecognized section and content) Goals may [...] BE BASED ON THE PRIMARY CLINICAL RECORDS. [facility]. provides no warranty or guarantee of the accuracy or completeness of information in this document.
[2024-05-31 14:43] LABS: Prostate Specific Antigen Dx 1.28 ng/mL (<=4.00)
== END 2024-05-31 12:41 | disposition home or self-care (01) ==
LOC: LAB 12:44
PROVIDERS: PCP Family Medicine; Visit Provider Urology
DX: R97.20 Elevated prostate specific antigen [PSA] (principal)
CPT/HCPCS: 36415; 84153

== ENCOUNTER 2024-06-24 09:31 | Outpatient (OUT) | payer MEDICARE, SELFPAY ==
--- NOTE | 2024-06-24 09:36 | CT_ITS ---
The [address] [address] Patient Name: DARIAN DUENAS MRN: [id number] date: 1955 Sex: M Assigned Patient Location: CT Current Patient Location: CT Accession/Order Number: [id number] Exam Date: 06/24/2024 12:16 Report Date: 06/24/2024 12:28 At the request of: TANNER WILLIS MD Procedure: CT lung screening low-dose LOW-DOSE SCREENING CHEST CT WITHOUT CONTRAST COMPARISON: 01/16/2023 CLINICAL DATA: Current smoker Spiral axial low-dose images were obtained through the chest without contrast. Images were reviewed using both narrow and wide window settings. This CT exam was performed using one or more following dose reduction techniques: Automated exposure control, adjustment of the mA and/or kV according to patient size, or use of iterative reconstruction technique. The heart is normal in size. No pericardial effusion is present. There is minimal coronary disease. No aortic aneurysm is identified. There are calcified mediastinal and hilar granulomas. Mild endplate spurring is present at the spine. There is mild scarring at the lung apices. There is minimal scarring or atelectasis at the lower lungs. There is no developing consolidation, pleural effusion or pneumothorax. There are several scattered calcified granulomas. There are also a few 2-3 mm nodules on the right where calcification is difficult to confirm however these are unchanged. No new nodularity is seen. Limited imaging through the upper abdomen shows no contributory findings. CT/CT lung screening low-dose IMPRESSION: TINY SIMILAR PULMONARY NODULES, PREDOMINANTLY CALCIFIED GRANULOMAS. NO ACUTE ABNORMALITIES. Lung RADS category 2 - benign Twelve-month low-dose CT follow-up suggested Impression dictated by: Apple Lentz M.D.06/24/2024 12:28 PM Dictation Location: [place] [address] Electronically authenticated by: [id number] Y Date: 06/24/2024 12:28
== END 2024-06-24 09:32 | disposition home or self-care (01) ==
LOC: CT 09:31
PROVIDERS: PCP Family Medicine; Visit Provider Family Medicine
DX: R91.8 Other nonspecific abnormal finding of lung field (principal); F17.210 Nicotine dependence, cigarettes, uncomplicated
CPT/HCPCS: 71271

== ENCOUNTER 2024-08-20 08:02 | Outpatient (OUT) | payer MEDICARE, SELFPAY ==
--- OUTSIDE RECORDS SUMMARY | 2024-08-20 02:53 | XMS_ITS | Continuity of Care Document ---
Author Organization [facility] Address [address] [place] [address] Phone Care Team Providers Care Food Inspector Name Role Phone Mark Cooper MD Attending Provider Catracho Villegas MD Primary Care Provider Care Teams Patient Care Team Team Status: Active Member Role Status Dates Catracho Villegas MD Primary Care Provider Active Visit Care Team Team Status: Inactive Member Role Status Dates Catracho Villegas MD Primary Care Provider Active S tart: June 03, 2024 End: June 03, 2024 Asha Dacosta APRN Attending Provider Active Start: June 03, 2024 End: June 03, 2024 Patient Care Team Team Status: Active Member Role Status Dates Mark Cooper MD Attending Provider Active Star t: August 17, 2024 Catracho Villegas MD Primary Care Provider Active S tart: August 17, 2024 Patient Care Team Team Status: Inactive Member Role Status Dates Catracho Villegas MD Primary Care Provider Active S tart: August 17, 2024 End: August 17, 2024 Mark Cooper MD Attending Provider Active Star t: August 17, 2024 End: August 17, 2024 Chief Complaint and Reason for Visit Chief Complaint Admit Date Congestion, cough, shortness of breath M arch 2024 1:38pm M25.511 - Pain in right shoulder July 9:45am OP SP RT SHOULDER PAIN August 17, 2024 12 :52pm Reason for Visit Admit Date Lower respiratory infection (e.g., bronchitis, pneumonia, pneumonitis, June 03, 2024 1:38pm Arthritis of right glenohumeral joint Ma y 2024 12:52pm Right rotator cuff tear August 17, 2024 1 2:52pm Tendonitis of left rotator cuff July 12:52pm Allergies, Adverse Reactions, Alerts No known allergies Social History Smoking Status Status Start Date End Date Date of Observa tion Smoker (finding) July 05, 2021 6:52am Observation Status Observation Response Date of Response Patient Sex Male August 17, 2024 1 :37pm Assigned Sex Male April Family History Relationship Condition Age at Onset Recorded Date/T george mother Malignant neoplasm of throat Unknown father Malignant neoplasm of prostate Unknown Parkinson's disease Unknown Hypertension Unknown Cardiomegaly Unknown Problems Active Problems Medical Problem Onset Date Status Arthritis of right glenohumeral joint Active Tendonitis of left rotator cuff Active Right rotator cuff tear Active Bladder cancer Active Arthritis Active Acute pain of right shoulder Act ramone GERD (gastroesophageal reflux disease) Active Medications Medication Status Dose Units Route Directions Qty Days St art Date Stop Date End Date Instructions Clindamycin Hcl 300 mg capsule Discont inued 600 MG PO .COMPLEX 2 May 29, 2023 1:00am June 03, 2024 1:39p m 600 mg orally 1 hour prior to dental; Amoxicillin 500 mg capsule Discont inued 2000 MG PO .COMPLEX 4 May 30, 2023 1:00am June 03, 2024 1:39p m 2,000 mg orally; Take 2G (4 tablets) by mouth 1 hour prior to dental work. Omeprazole 40 mg capsule,judson yed release(DR/E C) Discont inued 40 MG PO Q48H 2021 1:00am June 03, 2024 1:45p m Diclofenac Sodium 1 % gel Discont inued 1 GM TOPICA L Daily as needed for Pain 2021 1:00am June 03, 2024 1:45p m Multivitamin Tablet Discont inued 1 TAB PO Daily Februa 2021 1:00am June 03, 2024 1:45p m Azithromycin 250 mg tablet Active 0 PO .COMPLEX June 03, 2024 12:00a m For 250 mg dose pack: take 500 mg today (day 1), then 250 mg for 4 days (days 2-5) PO Methylpredni solone (Medrol (Thien)) 4 mg tablets,dose pack Active 0 PO per package directions June 03, 2024 12:00a m PO PER PKG DIR for 6 days Benzonatate 100 mg capsule Active 100 MG PO Three times daily 11 10June 03, 2024 12:00a m Albuterol Sulfate 90 mcg/actuatio n HFA aerosol inhaler Active 2 PUFF INHALA TION Q4H 04 06June 03, 2024 12:00a m Immunizations Immunization Event Date Not Given Reason Dose Number Plug Machine Operator Lot Number Vaccine Information Statement (VIS) Detail COVID-19 mRNA, Comirnaty (IOCS) August 11, 2020 COVID-19 mRNA, Comirnaty (IOCS) August 28, 2020 COVID-19 mRNA, Comirnaty (IOCS) February 28, 2021 Medical Equipment Device Date Implanted Device Details Orthopaedic cement, non-medicated July 05 MICKIE: [id number] Issuing Agency: [facility] Device Id: [id number] Expiration Date: 2023-10-22 Lot Number: [id number] Coated knee femur prosthesis July 05, 2021 UD I: [id number] Issuing Agency: [facility] Device Id: [id number] Expiration Date: 2031-04-03 Lot Number: [id number] Tibial insert July 05, 2021 MICKIE: [id number] Issuing Agency: [facility] Device Id: [id number] Expiration Date: 2025-12-12 Lot Number: [id number] Polyethylene patella prosthesis July 05, 2021 MICKIE: [id number] Issuing Agency: [facility] Device Id: [id number] Expiration Date: 2028-11-06 Lot Number: [id number] Uncoated knee tibia prosthes is, metallic July 05, 2021 MICKIE: [id number] Issuing Agency: [facility] Device Id: [id number] Expiration Date: 2030-11-05 Lot Number: [id number] Procedures Procedure Date Performed Status XR shoulder BI min 2V August 17, 2024 9:45am acti ve Relevant Diagnostic Tests and/or Laboratory Data Laboratory Results Test Date/Time Result Interpretation Reference Range Result Comment Performing Site POC SARS-CoV-2 RNA (PCR) June 03, 2024 1:50pm Negative POC Influenza A (PCR) June 03, 2024 1:50pm Negative POC Influenza B (PCR) June 03, 2024 1:50pm Negative POC RSV (VIC) June 03, 2024 1:50pm Negative Diagnostic Imaging Reports Author Cristi Dwyer [facility] Authored August 17, 2024 3:40p m Report Dictated Date/Time Dictated By Status Radiology Report August 17, 2024 3:40pm Cristi sosa II MD completed [facility] [address] [place] [address] XRay Report Signed Patient: Kishan Florentino MR#: [id number] : 1955 Acct:[id number] Age/Sex: 69 / M ADM Date: 5 Loc: [facility] Room: Type: [facility] Attending Dr: Mark Cooper MD Copies to: Mark Cooper MD~ Ordering Provider: Mark Cooper MD Date of Service: 08/17/24 XR/XR shoulder BI min 2V: M25.511 - Pain in right shoulder XR shoulder BI min 2V 08/17/2024 9:45 AM SIGNS AND SYMPTOMS: Right shoulder pain, failed rotator cuff repair. Left shoulder pain. PROTOCOL: Frontal, Grashey, scapular Y, and axillary views of the bilateral shoulders COMPARISON: 06/10/2022 FINDINGS: Hypertrophic changes are noted in the acromioclavicular joints, right greater than left. There is narrowing of the glenohumeral joints bilaterally, right greater than left. There is spurring along the inferior margin of the right humeral head and to a lesser extent the left humeral head. There is spurring along the inferior margin of the glenoid of the right. There is soft tissue anchoring at the greater tuberosity bilaterally consistent with prior rotator cuff repair. The lateral and inferior most soft tissue anchor on the right appears to be extraosseous suggesting avulsion of the rib. Tendon. The thorax is grossly intact. XR/XR shoulder BI min 2V IMPRESSION: No fracture. Degenerative changes are noted in the shoulders bilaterally, right greater than left. There is evidence of previous rotator cuff repair bilaterally with findings suggesting failed soft tissue anchor on the right as noted above. Impression dictated by: Cristi Dwyer M.D. 08/17/2024 3:43 PM Dictation Location: [place] [address] Transcribed By: [facility] 08/17/24 1543 Dictated By: Cristi Dwyer II, MD 08/17/24 1540 Signed By: <Electronically signed by Cristi Dwyer II, MD in OV> 08/17/24 1543 Vital Signs Vital Reading Result Reference Range Collection Date/Time Height 72 [in_i] June 03 1:41pm Weight 84.36 kg June 03 1:41pm Body Temperature 98.0 [degF] 97.6-99.0 June 03, 2024 1:41pm Heart Rate 68 /min 60-100 June 03 1:41pm Respiratory rate 18 /min 12-24 June 03, 2024 1:41pm Oxygen saturation by Pulse oximetry 97 % 95-100 June 03, 2024 1:4 1pm BP Systolic 134 mm[Hg] 100-140 June 03 1:41pm BP Diastolic 78 mm[Hg] 60-100 June 03 1:41pm BMI (Body Mass Index) 25.2 kg/m2 June 03, 2024 1:41pm Height 72 [in_i] August 17, 2024 12:54pm Weight 84.00 kg August 17, 2024 12:54pm BMI (Body Mass Index) 25.1 kg/m2 August 172024 12:54pm Advance Directives Advance Directive Response Recorded Date/ Time Advance Directives No November 13, 2020 3:54pm Insurance Providers Guarantor Kishan Maury Chadd Address [address] [facility] [address] Contact Info. Home Phone: Payer Policy Id Coverage Id Subscriber's Name Subscriber Id Effective Date Expiration Date Aneudy BC/BS [id number] Kishan Florentino [id number] Medicaid [id number] Kishan Florentino [id number] Aneudy MCR PFFS [id number] Kishan Florentino [id number] Aneudy MediBlue Dual Adv [id number] Kishan Florentino [id number] HCAP/HFA/F AP Active [id number] Kishan Florentino [id number] May Encounters Encounter Location(s) Arrival/Admit Date Discharge/Depart Date Provider(s) Departed Physician/Provi vianca Office Visit [facility] Physician [facility] [place] June 03, 2024 1:38pm June 03, 2024 2:10pm Asha Dacosta APRN Registered Clinical [facility] August 17, 2024 9:45am Mark Cooper MD Departed Physician/Provi vianca Office Visit [facility] Physician [facility] August 17, 2024 12:52pm August 17, 2024 1:37pm Mark Cooper MD Recent Diagnosis Onset Date Admit Date Lower respiratory infection (e.g., bronchitis, pneumonia, pneumonitis, June 03, 2024 1:38pm Arthritis of right glenohumeral joint August 17, 2024 12:52pm Right rotator cuff tear July 12:52pm Tendonitis of left rotator cuff August 17, 2024 12:52pm Assessments Diagnosis Onset Date Resolution Status Admit Date Lower respiratory infection (e.g., bronchitis, pneumonia, pneumonitis, noneactive June 03, 2024 1:38pm Arthritis of right glenohumeral joint acute August 17 12:52pm Right rotator cuff tear acute M ay 2024 12:52pm Tendonitis of left rotator cuff acute August 17, 2024 1 2:52pm Plan of Treatment Author Asha Dacosta [facility] Authored June 03, 2024 2:2 5pm Advised patient that COVID/I nfluenza A/B PCR test was negative. Discussed diagnosis with patient in detail. Advised patient that cough may linger for 3 weeks. Will treat today with antibiotic. Reviewed allergies and recent antibiotic use. Advised to take medications as prescribed, reviewed side effects of steroid, take with food and plenty of water, finish entire course. Encouraged supportive care as directed, push fluids and rest, may use Tylenol as needed for fever/discomfort, cool mist humidifier. Use rx of Tessalon Perles and Inhaler as directed. Patient to follow up with PCP in 2-3 days. Immediate eval for worsening SOB, difficulty breathing, chest pain, dizziness, or other concerning symptoms. Patient verbalizes understanding and is agreeable to treatment plan Author Pat Shankar [facility] Authored August 17, 2024 1:36p m Radiographs reviewed in [facility] [place] with patient as severe glenohumeral arthritis, as well as evidence of failed rotator cuff repair. This is pain secondary to glenohumeral arthritis. We discussed the importance of maintaining shoulder motion and demonstrated motion exercise in flexion, internal and external rotation. We discussed the use of non-steroidal anti-inflammatory medication. Discussed limiting strenuous use of the shoulder which will aggravate symptoms. Discussed that occasional intra-articular cortisone injection may be helpful. Discussed surgical treatment options including reverse arthroplasty replacement options. We discussed a shoulder replacement is not made to withstand heavy labor work. Patient opts for cortisone injection today. Patient was prepped and 1 cc kenalog/2 cc marcaine was injected into the bilateral shoulders under sterile conditions. Patient tolerated well with no adverse reactions. Continue motion and strengthening exercises. We will plan to follow the position of the anchor with radiographs in approx 6-8 weeks. Extensive discussion about current condition and treatment options available. Patient was prepped and 1 cc kenalog/2 cc marcaine was injected into the bilateral shoulders under sterile conditions. Patient tolerated well with no adverse reactions. Continue motion and strengthening exercises. Future Tests Future scheduled test information is unavailable Pending Tests Test Name Ordered Date Scheduled Date XR shoulder BI min 2V August 17, 2024 9:45am August 17, 2024 9:45am Future Visits Future appointment information is unavailable Referrals to Other Providers Referral information is unavailable Future Procedures Future procedure information is unavailable Future Medications Future medication information is unavailable Patient Instructions Patient instructions are unavailable
--- OUTSIDE RECORDS SUMMARY | 2024-08-20 08:03 | XMS_ITS | Clinical Summary ---
Author Organization [facility] Address [address] [place], [place] [address] Care Team Providers Care Care Taker Name Role Phone Unavailable Primary Care Provider Unavailabl e Social History Tobacco Use Types Packs/Day Years Used Date Smoking Tobacco: Never Assessed Sex and Gender Information Value Date Recorded Sex Assigned at Not on file Legal Sex Male 7:57 PM EST Gender Identity Not on file Sexual Orientation Not on file Plan of Treatment Not on file Insurance [employer]VANT[employer] HMO
--- OUTSIDE RECORDS SUMMARY | 2024-08-20 08:04 | XMS_ITS | Clinical Summary ---
Author Organization [facility] Address [address] [place] [address] Care Team Providers Care Freight Separator Name Role Phone Catracho Villegas MD Primary Care Provider + Allergies No known active allergies Medications gentamicin (GENTAK) 0.3 % ophthalmic ointment 1/2 to lower lid of right eye before bedtime x 7 days 1 Tube 10/14/2016 Active Social History Tobacco Use Types Packs/Day Years Used Date Smoking Tobacco: Every Day Cigarettes Alcohol Use Standard Drinks/Week Comments No 0 (1 standard drink = 0.6 oz pur e alcohol) Sex and Gender Information Value Date Recorded Sex Assigned at Not on file Legal Sex Male 9:08 PM EST Gender Identity Not on file Sexual Orientation Not on file Last Filed Vital Signs Vital Sign Reading Time Taken Comments Blood Pressure 135/89 08/13/2018 12:58 PM EDT Pulse 62 08/13/2018 12:58 PM EDT Temperature 36.4 C (97.6 F) 08/13/2018 12:58 PM EDT Respiratory Rate 16 08/13/2018 12:58 PM EDT Oxygen Saturation 97% 08/13/2018 12:58 PM EDT Inhaled Oxygen Concentration - - Weight - - Height - - Body Mass Index - - Plan of Treatment Not on file Insurance [employer] Care Teams Freight Separator Relationship Specialty Start Date End Date Catracho Villegas MD [address] [place] [phone] PCP - General Family Medicine 10/14/16
--- OUTSIDE RECORDS SUMMARY | 2024-08-20 08:04 | XMS_ITS | Encounter Summary ---
Author Organization [facility] Address [address] [place] [address] Care Team Providers Care Test Administrator Name Role Phone Unavailable Primary Care Provider Unavailabl e Source Comments In the event this information is protected by the Federal Confidentiality of Alcohol and Drug AbusePatient Records regulations: The Federal rules restrict any use of the information to criminally investigate or prosecute any alcohol or drug abuse patient.[facility] Encounter Details Date Type Department Care Team (Late st Contact Info) Description 03/10/2023 Lab Requisition [facility] [address] [place] [address] Rigoberto Bates MD Person encountering health services to consult on behalf of another person Social History Tobacco Use Types Packs/Day Years Used Date Smoking Tobacco: Never Assessed Sex and Gender Information Value Date Recorded Sex Assigned at Not on file Legal Sex Male 7:57 PM EST Gender Identity Not on file Sexual Orientation Not on file documented as of this encounter Plan of Treatment Not on file documented as of this encounter Procedures Procedure Name Priority Date/Time Associated Diagnosis Comments SURGICAL PATHOLOGY REFERENCE LAB CONSULT Routine 03/10/2023 8:11 PM EST Person encountering health services to consult on behalf of another person documented in this encounter Results * SURGICAL PATHOLOGY REFERENCE LAB CONSULT (03/10/2023 8:11 PM EST) Case Report Surgical Pathology Report Case: [id number] Authorizing Provider: Rigoberto Bates MD Collected: 03/10/2023 08:11 PM Ordering Location: [facility] Received: 03/10/2023 08:11 PM [facility] Pathologist: Papo Cox MD Specimen: SLIDE(S), 2 SLIDES [id number] 03/11/2023 9:40 AM EST [facility] FINAL DIAGNOSIS [facility]; [place], [place] ([id number], 01/09/2023) A. Urinary bladder, transurethral resection: - Benign urothelial mucosa with lamina propria edema, mild chronic inflammation, and heterotopic calcification. - No neoplasm is identified. JKM 03/11/2023 03/11/2023 9:40 AM EST [facility] at 0940 EST Clinical History CONSULT REQUESTED 03/11/2023 9:40 AM EST [facility] Performing Lab Diagnostic interpretation performed at [facility], [address] [place] [address]# [id number] Geopolitics Teacher: Ovidio Aburto M.D. 03/11/2023 9:40 AM EST [facility] Blocks or Slides MICROSCOPE SLIDE / Unknown 03/10/2023 8:11 PM EST 03/10/2023 8:11 PM EST us Rigoberto Bates MD SURGICAL PATHOLOGY Final Result [facility] [address] [place] [address] documented in this encounter Visit Diagnoses Diagnosis Person encountering health services to consult on behalf of another person Other person consulting on behalf of another person documented in this encounter
--- OUTSIDE RECORDS SUMMARY | 2024-08-20 08:04 | XMS_ITS | Encounter Summary ---
Author Organization [facility] Address [address] [place] [address] Care Team Providers Care Battery Tester Name Role Phone Catracho Villegas MD Primary Care Provider [phone] Catracho Villegas MD Primary Care Provider [phone] Catracho Villegas MD Unavailable Manjula Parks MA Unavailable Unavailable Encounter Details Date Type Department Care Team (Late st Contact Info) Description 07/01/2023 Orders Only [facility] [address] [place] [address] Catracho Villegas MD [address] [place] [address] Social History Tobacco Use Types Packs/Day Years Used Date Smoking Tobacco: Every Day Cigarettes 1 52.4 Started: 1973 Smokeless Tobacco: Never Sex and Gender Information Value Date Recorded Sex Assigned at Not on file Legal Sex Male 6:42 PM EDT Gender Identity Not on file Sexual Orientation Not on file documented as of this encounter Plan of Treatment Upcoming Encounters Date Type Department Care Team (Late st Contact Info) Description 12/20/2024 10:00 AM EDT Office Visit [facility] [address] [place] [address] Catracho Villegas MD [address] [place] [address] documented as of this encounter Procedures Procedure Name Priority Date/Time Associated Diagnosis Comments MISCELLANEOUS LAB TEST Routine 06/24/2023 2:26 PM EDT documented in this encounter Results * - Miscellaneous Test (06/24/2023 2:26 PM EDT) Catracho Villegas MD LAB BLOOD ORDERABLES Final Resul t documented in this encounter Visit Diagnoses Not on filedocumented in this encounter Care Teams Battery Tester Relationship Specialty Start Date End Date Catracho Villegas MD PCP - General Family Medicine 01/07/23 08/19/23 Catracho Villegas MD [address] [place] [address] PCP - General Family Medicine 08/20/23 Catracho Villegas MD [address] [place] [address] PCP - Aneudy ARANGO 08/23/23 03/23/24 Manjula Parks MA Family Medicine 03/23/24 04/06/24 documented as of this encounter
--- OUTSIDE RECORDS SUMMARY | 2024-08-20 08:04 | XMS_ITS | Encounter Summary ---
Author Organization [facility] Address [address] [facility] [place] [address] Care Team Providers Care Consumer Advocate Name Role Phone Catracho Villegas MD Primary Care Provider [phone] Reason for Referral * Imaging (Routine) - Authorized Specialty Diagnoses / Procedures Referred By Joselito kelly Referred To Contact Radiology Diagnoses History of abdominal hernia Generalized abdominal pain Procedures CT abdomen pelvis w IV contrast Dee Flores NP [address] [place] [address] Phone: tel: fax: [facility] [address] [place] [address] Phone: tel: fax: Referral ID Status Reason Start Date Expiration Date V isits Requested Visits Authorized [id number] Authorized 08/10/2024 02/06/2025 1 1 Encounter Details Date Type Department Care Team (Late st Contact Info) Description 08/10/2024 Orders Only [facility] [address] [place] [address] Dee Flores NP [address] [place] [address] History of abdominal hernia (Primary Dx); Generalized abdominal pain Social History Tobacco Use Types Packs/Day Years Used Date Smoking Tobacco: Every Day Cigarettes 1 52.4 Started: 1973 Smokeless Tobacco: Never PHQ-2 Answer Date Recorded Patient Health Questionnaire-2 Score 0 12/16/2023 Sex and Gender Information Value Date Recorded Sex Assigned at Not on file Legal Sex Male 6:42 PM EDT Gender Identity Not on file Sexual Orientation Not on file documented as of this encounter Plan of Treatment Upcoming Encounters Date Type Department Care Team (Late st Contact Info) Description 12/20/2024 10:00 AM EDT Office Visit [facility] [address] [place] [address] Catracho Villegas MD [address] [place] [address] Scheduled Orders Name Type Priority Associated Diagnoses Orde r Schedule CT abdomen pelvis w IV contrast Imaging Routine History of abdominal hernia Generalized abdominal pain Expected: 08/10/2024, Expires: 08/10/2025 Basic metabolic panel Lab Routine History of abdominal hernia Generalized abdominal pain Expected: 08/10/2024 (Approximate), Expires: 08/10/2025 documented as of this encounter Visit Diagnoses Diagnosis History of abdominal hernia- Primary Generalized abdominal pain Abdominal pain, generalized documented in this encounter Additional Health Concerns Assessment Noted Time PHQ-9 Depression Total Score: 3 12/16/19 11:00 AM EDT documented as of this encounter Care Teams Consumer Advocate Relationship Specialty Start Date End Date Catracho Villegas MD [address] [place] [address] PCP - General Family Medicine 08/20/23 documented as of this encounter
--- OUTSIDE RECORDS SUMMARY | 2024-08-20 08:04 | XMS_ITS | Encounter Summary ---
Author Organization [facility] Address [address] [place] [address] Care Team Providers Care Promotor Group Ticket Sales Name Role Phone Catracho Villegas MD Primary Care Provider [phone] Encounter Details Date Type Department Care Team (Late Contact Info) Description 04/28/2024 Orders Only [facility] [address] [place] [address] John Devries MD [address] [place] [place] [address] Social History Tobacco Use Types Packs/Day Years [...] 12/20/2024 10:00 AM EDT Office Visit [facility] [address] [place] [address] Catracho Villegas MD [address] [place] [address] documented as of this encounter Procedures Procedure Name Priority Date/Time Associated Diagnosis Comments SCANNED LABS Routine 04/28/2024 1:20 PM EST documented in this encounter Results * SCANNED LABS (04/28/2024 1:20 PM EST) us John Devries MD LAB CHG PERFORMABLES Final R esult documented in this encounter Visit Diagnoses Not on filedocumented in this encounter Additional Health Concerns Assessment Noted Time PHQ-9 Depression Total Score: 3 12/16/19 11:00 AM EDT documented as of this encounter Care Teams Promotor Group Ticket Sales Relationship Specialty Start Date End Date Catracho Villegas MD [address] [place] [address] PCP - General Family Medicine 08/20/23 documented as of this encounter
--- OUTSIDE RECORDS SUMMARY | 2024-08-20 08:04 | XMS_ITS | Encounter Summary ---
Author Organization [facility] Address [address] [place] [address] Care Team Providers Care Ocean Lifeguard Name Role Phone Catracho Villegas MD Primary Care Provider [phone] Catracho Villegas MD Unavailable Manjula Parks MA Unavailable Unavailable Encounter Details Date Type Department Care Team (Late st Contact Info) Description 10/07/2023 Orders Only [facility] [address] [place] [address] John Devries MD [address] [place] [address] Social History Tobacco Use Types Packs/Day Years [...] 12/20/2024 10:00 AM EDT Office Visit [facility] [address] [place] [address] Catracho Villegas MD [address] [place] [address] documented as of this encounter Procedures Procedure Name Priority Date/Time Associated Diagnosis Comments MISCELLANEOUS LAB TEST Routine 09/30/2023 11:25 AM EDT documented in this encounter Results * - Miscellaneous Test (09/30/2023 11:25 AM EDT) us John Devries MD LAB BLOOD ORDERABLES Final R esult documented in this encounter Visit Diagnoses Not on filedocumented in this encounter Care Teams Ocean Lifeguard Relationship Specialty Start Date End Date Catracho Villegas MD [address] [place] [address] PCP - General Family Medicine 08/20/23 Catracho Villegas MD [address] [place] [address] PCP - Aneudy ARANGO 08/23/23 03/23/24 Manjula Parks MA Family Medicine 03/23/24 04/06/24 documented as of this encounter
--- OUTSIDE RECORDS SUMMARY | 2024-08-20 08:04 | XMS_ITS | Encounter Summary ---
Author Organization [facility] Address [address] [place] [address] Care Team Providers Care Tobacco Baler Name Role Phone Catracho Villegas MD Primary Care Provider [phone] Encounter Details Date Type Department Care Team (Late Contact Info) Description 2024 Abstract [facility] [address] [place] [address] Catracho Villegas MD [address] [place] [address] Social History Tobacco Use Types Packs/Day Years [...] Office Visit [facility] [address] [place] [address] Catracho Villegas MD [address] [place] [address] documented as of this encounter Visit Diagnoses Not on filedocumented in this encounter Additional Health Concerns Assessment Noted Time PHQ-9 Depression Total Score: 3 12/16/19 11:00 AM EDT documented as of this encounter Care Teams Tobacco Baler Relationship Specialty Start Date End Date Catracho Villegas MD [address] [place] [address] PCP - General Family Medicine 08/20/23 documented as of this encounter
--- OUTSIDE RECORDS SUMMARY | 2024-08-20 08:04 | XMS_ITS | Patient Health Record ---
Author Organization [facility] [place] [facility] [place] Address [address] [place] [address] Care Team Providers Care Lunch Truck Operator Name Role Phone Catracho Villegas MD Primary Care Provider Unavailab le Allergies No Known Allergies Reason For Referral No Information Medications Medication SIG (Take, Route, Fr equency, Duration) Notes Start Date End Date Status Myrbetriq 50 MG Oral for 90 Days Active Social History Tobacco Use: Social History Observation Description Date Details (start date - stop date) Current Smoker NA - NA Tobacco Use/Smoking Question Answer Notes Patient is a current every day smoker Problems Problem Type SNOMED Code ICD Code Onset Dates Problem Status W/U Status Risk Notes Problem [id number] Contracture, 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
--- OUTSIDE RECORDS SUMMARY | 2024-08-20 08:04 | XMS_ITS | Clinical Summary ---
Author Organization [facility] Healthcare Address [address] [place] [address] Care Team Providers Care Therapy Technician Name Role Phone Tanner Willis MD Primary Care Provider [phone] Allergies No known active allergies Medications omeprazole (PriLOSEC) [address] capsule Take 1 capsule by mouth in the morning. Take before meals. Do not crush or chew.. Active nicotine polacrilex (Nicorette) 2 MG gumIndications: Tobacco user Chew 1 piece every 2-4 hours as needed 100 each 1 04/02/2023 Active Active Problems Problem Noted Date Diagnosed Date Abdominal pain 08/10/2024 History of abdominal hernia 07/01/2024 Assessment & Plan (07/01/2024 5:24 PM EDT): Hx of this with a repair umbilical It does appear questionable if there is another hernia in the LLQ inner upper quad. No definite but possible Discussed we could order CT scan, or monitor. We talked about the red flags as well to watch for Pt would like to monitor for now. If worsens he will reach out DD: strain, or related to bladder cancer treatment I have recommended he mention this to dr jang as well COPD (chronic obstructive pulmonary disease) Assessment & Plan (06/10/2024 1:18 PM EDT): Need to quit smoking. Use albuterol PRN. Pneumonia 06/10/2024 Assessment & Plan (06/10/2024 1:18 PM EDT): Recent pneumonia but improved. Use OTC PRN. Encounter for long-term (current) use of medicat ions 12/16/2023 Medicare annual wellness visit, subsequent 12/15 Assessment & Plan (12/16/2023 12:16 PM EDT): Due for labs. Discussed proper diet and regular aerobic exercise. Need aerobic exercise 5-6 days a week for 30 minutes at a time. Smaller portions and limit total calories. Colonoscopy every 10 years. Tetanus every 10 years. Advised not to smoke. Discussed daily Aspirin therapy. Screening PSA (prostate specific antigen) 2023 VINNY (generalized anxiety disorder) 04/02/2023 Arthralgia of multiple joints 04/02/2023 Bilateral carpal tunnel syndrome 04/02/2023 BPH associated with nocturia 04/02/2023 Chronic right shoulder pain 04/02/2023 DDD (degenerative disc disease), lumbar 04/02/19 Gastroesophageal reflux disease without esophagi tis 04/02/2023 Prediabetes 04/02/2023 Hypersomnia 04/02/2023 Left leg pain 04/02/2023 Primary osteoarthritis of left knee 04/02/2023 Vitamin D deficiency 04/02/2023 Bladder cancer 04/02/2023 Assessment & Plan (07/01/2024 5:22 PM EDT): Continue with urology Would recommend saying something to urology team about the discomfort Assessment & Plan (12/16/2023 12:16 PM EDT): Follow with urology. Cigarette smoker 04/02/2023 Assessment & Plan (07/01/2024 7:22 AM EDT): The patient has been advised of the risks of continued smoking: stroke, [place], all forms of cancer, lung disease, and . Options for quitting smoking include: cold turkey, hypnosis, acupuncture, nicotine replacement meds (gum, lozenges, and patches), Buproprion, and Varenicline. At this time pt is encouraged to evaluate their goals for wanting to quit smoking, and reach out to provider when ready to start this process Assessment & Plan (06/10/2024 1:18 PM EDT): Repeat CT chest. Assessment & Plan (04/02/2023 8:41 AM EST): Wants to quit smoking and start nicotine gum. Resolved Problems Problem Noted Date Diagnosed Date Resolved Date Proteinuria 04/02/2023 04/02/2023 COVID-19 04/02/2023 12/16/2023 Assessment & Plan (04/02/2023 8:40 AM EST): Infection few weeks ago and continued congestion. Treat with prednisone and use OTC PRN. Encounters Date Type Department Care Team Description 08/10/[address] [facility] [address] [place] [address] Dee Flores NP History of abdominal hernia (Primary Dx); Generalized abdominal pain 07/01/2024 2:40 PM EDT Office Visit [facility] [address] [place] [address] Dee Flores NP History of abdominal hernia (Primary Dx); Cigarette smoker; Malignant neoplasm of urinary bladder, unspecified site (CMS/HCC) 07/01/[address] [facility] [address] [place] [address] Dee Flores NP 06/24/2024 Clinisync Result Encounter [facility] External Department Unsolicited Tanner Willis MD 06/15/[address] [facility] [address] [place] [address] Tanner Willis MD 06/10/2024 12:45 PM EDT Office Visit [facility] [address] [place] [address] Tanner Willis MD Pneumonia due to infectious organism, unspecified laterality, unspecified part of lung (Primary Dx); Chronic obstructive pulmonary disease, unspecified COPD type (CMS/HCC); Cigarette smoker; Malignant neoplasm of bladder, unspecified (CMS/HCC) 06/10/2024 Abstract [facility] [address] [place] [address] Tanner Willis MD 06/10/2024 Bamboo flowsheet [facility] [address] [place] [address] Tanner Willis MD 05/31/2024 Clinisync Result Encounter [facility] External Department Unsolicited Provider, Generic External Data from Last 3 Months Immunizations Immunization Administration Dates Next Due BCG 11/20/2023,,11/06/2023,05/13/2023,05/05/2023,04/28/19,10/22/2022,10/14/2022,10/14/2022,10/08/2022,09/17/2022,09/10,09/03/2022,08/27/2022 Family History Medical History Relation Name Comments Heart disease Father Hypertension Father Parkinsonism Father Cancer Mother Relation Name Status Comments Father Mother Social History Tobacco Use Types Packs/Day Years Used Date Smoking Tobacco: Every Day Cigarettes 1 52.4 Started: 1972 Smokeless Tobacco: Never Tobacco Cessation:Ready to Q uit: Yes; Counseling Given: No PHQ-2 Answer Date Recorded Patient Health Questionnaire-2 Score 0 12/16/2023 Sex and Gender Information Value Date Recorded Sex Assigned at Not on file Legal Sex Male 6:42 PM EDT Gender Identity Not on file Sexual Orientation Not on file Last Filed Vital Signs Vital Sign Reading Time Taken Comments Blood Pressure 124/80 07/01/2024 2:58 PM EDT Pulse 61 07/01/2024 2:58 PM EDT Temperature 36.6 C (97.8 F) 07/01/2024 2:58 PM EDT Respiratory Rate 18 07/01/2024 2:58 PM EDT Oxygen Saturation 93% 07/01/2024 2:58 PM EDT Inhaled Oxygen Concentration - - Weight 86.2 kg (190 lb) 07/01/2024 2:58 PM EDT Height 182.9 cm (6') 07/01/2024 2:58 PM EDT Body Mass Index 25.77 07/01/2024 2:58 PM EDT Plan of Treatment Upcoming Encounters Date Type Department Care Team (Late st Contact Info) Description 12/20/2024 10:00 AM EDT Office Visit [facility] [address] [place] [address] Tanner Willis MD [address] [place] [address] Health Maintenance Due Date Last Done Comments CT Colonography 1955 FIT-DNA 1955 FIT 1955 FOBT 1955 Sigmoidoscopy 1955 Pneumococcal Vaccine: 65+ Ye ars (1 of 2 - PCV) 1973 Influenza Vaccine (Season Ended) 2024 Medicare Annual Wellness (AWV) 12/15/2024 12/16/2023 Colonoscopy 09/01/2033 09/02/2023, 08/22, 09/02/2023 Colorectal Cancer Screening 09/01/2033 Procedures Procedure Name Priority Date/Time Associated Diagnosis Comments CT LUNG SCREENING LOW DOSE 06/24/2024 12:28 PM EDT PT PSA, DIAGNOSTIC Routine 05/31/2024 12:54 PM EDT from Last 3 Months Results * CT LUNG SCREENING LOW DOSE (06/24/2024 12:28 PM EDT) Anatomical Region Laterality Modality Other 06/24/2024 12:2 8 PM EDT Narrative 06/24/2024 12:30 PM EDT The [address] [address] [address] Scan Report Signed Patient: DARIAN DUENAS MR#: [id number] : 1955 Acct:[id number] Age/Sex: 69 / M ADM Date: 06/24/24 Loc: CT Attending Dr: Tanner Willis M.D. Ordering Physician: Tanner Willis M.D. Date of Service: 06/24/24 Procedure(s): CT lung screening low-dose Accession Number(s): [id number] cc: Tanner Willis M.D. [place] [id number] Patient Name: DARIAN DUENAS MRN: [id number] date: 1955 Sex: M Assigned Patient Location: CT Current Patient Location: CT Accession/Order Number: [id number] Exam Date: 06/24/2024 12:16 Report Date: 06/24/2024 12:28 At the request of: TANNER WILLIS MD Procedure: CT lung screening low-dose LOW-DOSE SCREENING CHEST CT WITHOUT CONTRAST COMPARISON: 01/16/2023 CLINICAL DATA: Current smoker Spiral axial low-dose images were obtained through the chest without contrast. Images were reviewed using both narrow and wide window settings. This CT exam was performed using one or more following dose reduction techniques: Automated exposure control, adjustment of the mA and/or kV according to patient size, or use of iterative reconstruction technique. The heart is normal in size. No pericardial effusion is present. There is minimal coronary disease. No aortic aneurysm is identified. There are calcified mediastinal and hilar granulomas. Mild endplate spurring is present at the spine. There is mild scarring at the lung apices. There is minimal scarring or atelectasis at the lower lungs. There is no developing consolidation, pleural effusion or pneumothorax. There are several scattered calcified granulomas. There are also a few 2-3 mm nodules on the right where calcification is difficult to confirm however these are unchanged. No new nodularity is seen. Limited imaging through the upper abdomen shows no contributory findings. CT/CT lung screening low-dose IMPRESSION: TINY SIMILAR PULMONARY NODULES, PREDOMINANTLY CALCIFIED GRANULOMAS. NO ACUTE ABNORMALITIES. Lung RADS category 2 - benign Twelve-month low-dose CT follow-up suggested Impression dictated by: Apple Lentz M.D.06/24/2024 12:28 PM Dictation Location: [place] [address] Electronically authenticated by: [id number] Y Date: 06/24/2024 12:28 Dictated By: Apple Lentz M.D. Signed By: 06/24/24 1230 DD/ 1228 TD/TT: Commodity Director: Procedure Note Radiology, Radiologist, - 06/24/[address] [place] [id number] Scan Report Signed Patient: DARIAN DUENAS LMR#: [id number] : 5Acct:[id number] Age/Sex: 69 / MADM Date: 06/24/24 Loc: CT Attending Dr: Tanner Willis M.D. Ordering Physician: Tanner Willis M.D. Date of Service: 06/24/24 Procedure(s): CT lung screening low-dose Accession Number(s): [id number] cc: Tanner Willis M.D. The [place] [id number] Patient Name: DARIAN DUENAS MRN: [id number] date: 1955 Sex: M Assigned Patient Location: CT Current Patient Location: CT Accession/Order Number: [id number] Exam Date: 06/24/2024 12:16 Report Date: 06/24/2024 12:28 At the request of: TANNER WILLIS MD Procedure: CT lung screening low-dose LOW-DOSE SCREENING CHEST CT WITHOUT CONTRAST COMPARISON: 01/16/2023 CLINICAL DATA: Current smoker Spiral axial low-dose images were obtained through the chest withoutcontrast. Images were reviewed using both narrow and wide window settings. This CT exam was performed using one or more following dose reduction techniques: Automated exposure control, adjustment of the mA and/or kV according to patient size, or use of iterative reconstruction technique. The heart is normal in size. No pericardial effusion is present. Thereis minimal coronary disease. No aortic aneurysm is identified. There are calcified mediastinal and hilar granulomas. Mild endplate spurring ispresent at the spine. There is mild scarring at the lung apices. There is minimal scarring or atelectasis at the lower lungs. There is no developing consolidation,pleural effusion or pneumothorax. There are several scattered calcifiedgranulomas. There are also a few 2-3 mm nodules on the right where calcification is difficult to confirm however these are unchanged. No new nodularity isseen. Limited imaging through the upper abdomen shows no contributory findings. CT/CT lung screening low-dose IMPRESSION: TINY SIMILAR PULMONARY NODULES, PREDOMINANTLY CALCIFIED GRANULOMAS. NO ACUTE ABNORMALITIES. Lung RADS category 2 - benign Twelve-month low-dose CT follow-up suggested Impression dictated by: Apple Lentz M.D.06/24/2024 12:28 PM Dictation Location: [place] [address] Electronically authenticated by: [id number] Y Date: 2:28 Dictated By: Apple Lentz M.D. Signed By:06/24/24 1230 DD/ 1228 TD/TT: Commodity Director: Tanner Willis MD [facility] Final Result * [facility] PSA, DIAGNOSTIC (05/31/2024 12:54 PM EDT) PROSTATE SPECIFIC ANTIGEN DX 1.28 <=4.00 ng/mL [facility] 05/31/2024 12:5 4 PM EDT 05/31/2024 12:55 PM EDT Narrative [facility] - 05/31/2024 2:45 PM EDT Generic External Data Provider [facility] Last 3 Months Insurance [employer] MEDICARE [employer]VANTAGE Care Teams Therapy Technician Relationship Specialty Start Date End Date Tanner Willis MD [address] [place] [address] PCP - General Family Medicine 08/20/23
--- OUTSIDE RECORDS SUMMARY | 2024-08-20 08:04 | XMS_ITS | Clinical Summary ---
Author Organization [facility] tem Address [id number] [address] [place] [address] Care Team Providers Care Desulphurizer Operator Name Role Phone Unavailable Primary Care Provider Unavailabl e Social History Tobacco Use Types Packs/Day Years Used Date Smoking Tobacco: Never Assessed Childcare Answer Date Recorded Childcare Unknown 09/02/2018 Employment Answer Date Recorded Employment Unknown 09/02/2018 Purpose - Life Answer Date Recorded Purpose and direction in life Unknown Sex and Gender Information Value Date Recorded Sex Assigned at Not on file Legal Sex Male 11:24 AM EDT Gender Identity Not on file Sexual Orientation Not on file Plan of Treatment Not on file Medical Devices Not on file Insurance ANTHEM AN[employer]M
--- OUTSIDE RECORDS SUMMARY | 2024-08-20 08:04 | XMS_ITS | Encounter Summary ---
Author Organization [facility] Address [address] [place] [address] Care Team Providers Care Marketing Assistant Manager Name Role Phone Catracho Villegas MD Primary Care Provider [phone] Encounter Details Date Type Department Care Team (Late Contact Info) Description 06/10/2024 Abstract [facility] [address] [place] [address] Catracho Villegas MD [address] [place] [address] Social History Tobacco Use Types Packs/Day Years [...] Office Visit [facility] [address] [place] [address] Catracho Villegas MD [address] [place] [address] documented as of this encounter Visit Diagnoses Not on filedocumented in this encounter Additional Health Concerns Assessment Noted Time PHQ-9 Depression Total Score: 3 12/16/19 11:00 AM EDT documented as of this encounter Care Teams Marketing Assistant Manager Relationship Specialty Start Date End Date Catracho Villegas MD [address] [place] [address] PCP - General Family Medicine 08/20/23 documented as of this encounter
--- NOTE | 2024-08-20 08:13 | CT_ITS ---
The [address] [address] Patient Name: DARIAN DUENAS MRN: [id number] date: 1955 Sex: M Assigned Patient Location: LAB Current Patient Location: LAB Accession/Order Number: [id number] Exam Date: 08/20/2024 10:04 Report Date: 08/20/2024 10:17 At the request of: CHIQUIS STINSON NP Procedure: CT abdomen pelvis w con CT ABDOMEN AND PELVIS WITH CONTRAST CLINICAL DATA: Abdominal pain and burning sensation to the left of the umbilicus. Prior history of hernia. COMPARISON: 06/27/2022 Spiral images were obtained through the abdomen and pelvis following oral and 100 mL of Omnipaque 300. This CT exam was performed using one or more following dose reduction techniques: Automated exposure control, adjustment of the mA and/or kV according to patient size, or use of iterative reconstruction technique. Limited cuts through the lung bases show right lower lobe calcified granuloma. There is decreased attenuation of the hepatic parenchyma in comparison spleen that may be fatty infiltration. A couple subcentimeter hepatic hypodensities are noted. These may be cysts and/or hemangiomas. No calcified gallstones are identified. The spleen, pancreas and adrenal glands show no interval change. There are symmetric renal nephrograms, without hydronephrosis. A stone is again noted at the midpole the right kidney. There are left renal cysts. The largest is exophytic cyst at the midpole measuring approximately 3.6 cm in size, similar to the comparison. There is atherosclerotic plaque involving the aorta and iliac arteries. There are no enlarged nodes or ascites. There is a tiny umbilical hernia containing fat. The small bowel loops are not dilated. Stool is present throughout the colon, greater on the right. There are some left-sided colonic diverticula. Subtle dextroscoliotic curvature and degenerative changes are visualized at the spine. There is also degenerative change with partial ankylosis at the SI joints. Images through the pelvis show normal caliber small bowel loops. No appendiceal inflammation is seen. There is mild distal colonic stool. There are multiple additional sigmoid diverticula, without associated active inflammation. There are calcifications within the prostate. The urinary bladder is not well-distended and the wall appears thickened. No ascites is noted. Mild degenerative changes are visualized at the hips. CT/CT abdomen pelvis w con IMPRESSION: POTENTIAL FATTY LIVER WITH TINY CYSTS AND/OR HEMANGIOMAS. CONTINUED RIGHT NEPHROLITHIASIS. LEFT RENAL CYSTS. NO BOWEL OR URINARY TRACT OBSTRUCTION. DIVERTICULOSIS. UNDER DISTENDED URINARY BLADDER WITH APPARENT WALL THICKENING. NO OTHER ACUTE FINDINGS. Impression dictated by: Apple Lentz M.D. 08/20/2024 10:17 AM Dictation Location: [place] [address] Electronically authenticated by: [id number] Y Date: 08/20/2024 10:17
[2024-08-20 08:21] LABS: Estimated GFR (African America >60 (>=60 mL/min/1.73m^2); Estimated GFR (Non-African Ame >60 (>=60 mL/min/1.73m^2)
--- OUTSIDE RECORDS SUMMARY | 2024-08-20 08:23 | XMS_ITS | CCD ---
Author Organization [facility] CliniSymd Care Team Providers Care Equipment Detailer Name Role Phone CATRACHO WILLIS Primary Care UnavailJAMIE Collier Attending Unavailable Trish, Nahid Unavailable Les Paul Unavailable MD Catracho Willis Primary Care Provider [phone] DO Nahid Canchola A Attending Provider [phone] CATRACHO WILLIS Primary Care Physician MD Catracho Willis Primary Care Provider DO Nahid Canchola A Attending Provider [phone] MD Catracho Willis Primary Care Provider DO Trish Nahid A Attending Provider MD Mickie Cooper Attending Provider Mickie Cooper Unavailable Catracho Willis Primary Care Unavailable Trish, Nahid A Admitting Unavailable Trish, Nahid A Attending Unavailable Nelly, Catracho Primary Care Unavailable Trish, Nahid A Attending Unavailable Trish, Nahid A Admitting Unavailable Trish, Nahid A Attending Unavailable Catracho Willis Primary Care Unavailable Trish, Nahid A Admitting Unavailable Trish, Nahid A Attending Unavailable Nelly, Catracho Primary Care Unavailable Trish, Nahid A Admitting Unavailable Trish, Nahid A Attending Unavailable Nelly, Catracho Primary Care Unavailable Trish, Nahid A Admitting Unavailable Mickie Cooper Attending Unavailable Nelly, Catracho Primary Care Unavailable Mickie Cooper Admitting Unavailable Kellierer, Catracho Primary Care Unavailable Trish, Nahid A Attending Unavailable Trish, Nahid A Admitting Unavailable Jenniferr, Catracho Primary Care Unavailable Trish, Nahid A Admitting Unavailable Trish, Nahid A Attending Unavailable NadereCatracho vasquez Primary Care Unavailable Alex Cancholain A Admitting Unavailable TrishNahid Attending Unavailable DAY ., DR RANDALL Consulting Unavailable DAY ., DR RANDALL Admitting Unavailable NADERER, DR CATRACHO Coronado Primary Care Unavailable DAY ., DR RANDALL Attending Unavailable ZIEBER, DR CLARIBEL Vasquez Consulting Unavailable NADERER, DR CATRACHO Coronado Primary Care Unavailable ETHAN, YAHAIRA Admitting Unavailable ETHAN, YAHAIRA Attending Unavailable ETHAN, YAHAIRA Consulting Unavailable DAY ., DR RANDALL Consulting Unavailable DAY ., DR RANDALL Admitting Unavailable NADERER, DR CATRACHO Coronado Primary Care Unavailable DAY ., DR RANDALL Attending Unavailable NAHID CANCHOLA Admitting Unavailable NADERER, DR CATRACHO Coronado Primary Care Unavailable NAHID CANCHOLA Attending Unavailable DAY ., DR RANDALL Attending Unavailable NADERER, DR CATRACHO Coronado Primary Care Unavailable DAY ., DR RANDALL Consulting Unavailable DAY ., DR RANDALL Admitting Unavailable SANTACRUZ, SINAN Consulting Unavailable FEINORMA DE JESUS Consulting Unavailable DAY ., DR RANDALL Attending Unavailable DAY ., DR RANDALL Admitting Unavailable DAY ., DR RANDALL Consulting Unavailable NADERER, DR CATRACHO Coronado Primary Care Unavailable DAMEON II, MICKIE Consulting Unavailable FILUTZE, LASHONDA Consulting Unavailable Hayley, Margaret Unavailable Catracho Willis MD Primary Care Provider Catracho Willis MD Unavailable YAHAIRA TADEO Attending Unavailable ETHAN, YAHAIRA Hallman Attending Unavailable DAY, Tonia R Admitting Unavailable DAY, Tonia R Attending Unavailable DAY, Tonia R Attending Unavailable ETHAN, YAHAIRA E Attending Unavailable DAY, Tonia R Admitting Unavailable DAY, Tonia R Attending Unavailable DAY, Tonia R Attending Unavailable DAY, Tonia R Admitting Unavailable DAY, Tonia R Attending Unavailable DAY, Tonia R Attending Unavailable DAY, Tonia R Attending Unavailable DAY, Tonia R Attending Unavailable ETHAN, YAHAIRA E Attending Unavailable DAY, Tonia R Attending Unavailable DAY, Tonia R Attending Unavailable DAY, Tonia R Admitting Unavailable DAY, Tonia Vasquez Attending Unavailable ESAFLAQUITA Attending Unavailable NADERER, CATRACHO Attending Unavailable NADERER, CATRACHO Attending Unavailable AICHHOLZ, DEE Attending Unavailable DAY, Tonia Vasquez Attending Unavailable ETHAN, YAHAIRA Hallman Attending Unavailable ETHAN, YAHAIRA E Attending Unavailable YAHAIRA TADEO Attending Unavailable Mickie Cooper MD Attending Provider Catracho Willis MD Primary Care Provider [phone] Medications Current Medications Medication Drug Class(es) Dates Sig (Normalized) Sig (Original) [id number] 200 actuat albuterol 0.09 mg/actuat metered dose inhaler (2 sources) beta2-Adrenergic Agonist Start: 5 take 1 puff(s) by inhalation every four hours Albuterol Sulfate 90 mcg/actuation HFA aerosol inhaler Active 2 PUFF INHALATION Q4H 1 June 03, 2024 12:00am azithromycin 250 mg oral tablet (2 sources) Macrolide Antimicrobial Start: 5 Azithromycin 250 mg tablet Active 0 PO .COMPLEX June 03, 2024 12:00am For 250 mg dose pack: take 500 mg today (day 1), then 250 mg for 4 days (days 2-5) PO benzonatate 100 mg oral capsule (2 sources) Non-narcotic Antitussive Start: 5 take 1 capsule by mouth three times daily Benzonatate 100 mg capsule Active 100 MG PO Three times daily 21 June 03, 2024 12:00am cephalexin 500 mg oral capsule (1 source) Cephalosporin Antibacterial Start: 3 cephalexin 500 mg Cap Refills(s) 0 Start Date: 07/26/22 Status: Ordered doxycycline hyclate 100 mg oral tablet (4 sources) Tetracycline-class Drug Start: 2 take 1 tablet by mouth every twelve hours Doxycycline Hyclate 100 MG 1 tablet Orally Twice a day for 7 days Do not fill 07/03/21 Jun, Active Magnesium (1 source) Magnesium Active methylPREDNISolone 4 mg oral tablet (2 sources) Corticosteroid Start: 5 take 1 tablet by mouth once Methylprednisolone (Medrol (Thien)) 4 mg tablets,dose pack Active 0 PO per package directions June 03, 2024 12:00am PO PER PKG DIR for 6 days 24 hr mirabegron 50 mg extended release oral tablet (17 sources) beta3-Adrenergic Agonist Start: 3 take 1 tablet by mouth once daily Myrbetriq 50 mg oral tablet, extended release 50 mg = 1 tab(s), Oral, Daily, # 90 tab(s), Refills(s) 3, Pharmacy: [facility], 182, cm, 09/10/22 8:56:00 EDT, Height/Length Dosing, 85, kg, 09/10/22 8:56:00 EDT, Weight Dosing Start Date: 09/10/22 Status: Ordered Start: 04-05-2022 take 1 tablet by brian th once daily Myrbetriq 50 mg oral tablet, extended release 50 mg = 1 tab(s), Oral, Daily, # 30 tab(s), Refills(s) 11, Pharmacy: [facility], 182, cm, 01/07/22 12:37:00 [...] day Active nicotine 2 mg chewing gum (9 sources) Cholinergic Nicotinic Agonist Start: 04-02-2023 nicotine polacrilex (Nicorette) 2 MG gum Indications: Tobacco user Chew 1 piece every 2-4 hours as needed 100 each 1 04/02/2023 Active oxybutynin chloride 5 mg oral tablet (12 sources) Cholinergic Muscarinic Antagonist Start: 05-13-2023 End: 05-07-2024 take 1 tablet by mouth at bedtime oxybutynin 5 mg Tab 5 mg = 1 tab(s), Oral, Bedtime, X 30 day(s), # 30 tab(s), Refills(s) 11, Pharmacy: [facility], 182, cm, 05/13/23 9:11:00 [...] for 10 day(s), 20 tab(s), Refill(s) 0, [facility], 182, cm, 03/03/23 9:14:00 EST, Height/Length Dosing, 84, kg, 03/03/23 9:14:00 EST, Weight Dosing Start Date: 03/10/23 Stop Date: 03/20/23 Status: Ordered Start: 08-27-2022 End: 09-03-2022 take 1 tablet by mouth twice daily Bactrim D.S. 800 mg-160 mg Tab 1 tab(s), Oral, BID for 7 day(s), 14 tab(s), Refill(s) 0, [facility], 182, cm, 08/27/22 9:05:00 EDT, Height/Length Dosing, 85, kg, 08/27/22 9:05:00 EDT, Weight Dosing Start Date: 08/27/22 Stop Date: 09/03/22 Status: Ordered Completed/Discontinued Medications Medication Drug Class(es) Dates Sig (Normalized) Sig (Original) amoxicillin 500 mg oral capsule (2 sources) Penicillin-class Antibacterial Start: 05-30-2023 End: 06-03-2024 take 1 tablet by mouth every hour Amoxicillin 500 mg capsule Discontinued 2000 MG PO .COMPLEX 4 May 30, 2023 1:00am June 03, 2024 1:39pm 2,000 mg orally; Take 2G (4 tablets) by mouth 1 hour prior to dental work. aspirin 81 mg chewable tablet (10 sources) [...] procedure, # 8 tab(s), Refills(s) 0, Pharmacy: [facility], 182, cm, 01/06/24 14:00:00 EDT, Height/Length Dosing, 85, kg, 01/06/24 14:00:00 EDT, Weight Dosing Start Date: 04/01/24 Status: Ordered Start: 11-05-2022 take 1 tablet by brian once daily Cipro 500 mg Tab 500 mg = 1 tab(s), Oral, Daily, Take 1 tablet the day before the procedure and 1 tablet after the procedure, # 6 tab(s), Refills(s) 0, Pharmacy: [facility], 182, cm, 10/22/22 9:11:00 EDT, Height/Length Dosing, 84, kg, 10/22/22 9:11:00 EDT,... Start Date: 11/05/22 Status: Ordered Start: 07-26-2022 Cipro 500 mg T ab 500 mg = 1 tab(s), Oral, As Directed, Pt to take 1 tab the day before procedure and the 2nd tab the day of procedure once completed., # 2 tab(s), Refills(s) 0, Pharmacy: [facility], 182, cm, 07/26/22 9:01:00 EDT, Height/Length Dosing, 82, k... Start Date: 07/26/22 Status: Ordered Start: 06-25-2022 take 1 tablet by brian once daily Cipro 500 mg Tab 500 mg = 1 tab(s), Oral, Daily, Take 1 tablet the day before the procedure and 1 tablet after the procedure, # 2 tab(s), Refills(s) 0, Pharmacy: [facility], 182, cm, 06/05/22 11:46:00 EDT, Height/Length Dosing, 82, kg, 06/05/22 11:46:00 EDT... Start Date: 06/25/22 Status: Ordered clindamycin 300 mg oral capsule (2 sources) Lincosamide Antibacterial Start: 05-29-2023 End: 06-03-2024 take 2 capsules by mouth every hour Clindamycin Hcl 300 mg capsule Discontinued 600 MG PO .COMPLEX 2 May 29, 2023 1:00am June 03, 2024 1:39pm 600 mg orally 1 hour prior to dental; cyclobenzaprine hydrochloride 10 mg oral tablet (9 sources) Muscle Relaxant Start: 07-02-2021 take 1 tablet by mouth every eight hours as needed for muscle spasms Cyclobenzaprine HCl 10 MG 1 tablet as needed for muscle spasm Orally every 8 hours for 14 days Jun, Not-Taking diclofenac sodium 0.01 mg/mg topical gel (12 sources) Nonsteroidal Anti-inflammatory Drug Start: 05-18-2021 End: 06-03-2024 apply 1 g topically once daily as needed for pain Diclofenac Sodium 1 % gel Discontinued 1 GM TOPICAL Daily as needed for Pain May 18, 2021 1:00am June 03, 2024 1:45pm Start: 05-18-2021 apply 1 g topically once daily Diclofenac Sodium Active 1 GM TOPICAL Daily May 18, 2021 1:00am Start: 03-12-2021 Voltaren 1 % a pply 1-2 grams to affected area Transdermal BID PRN for 30 days Feb, Active Start: 11-09-2020 take 1 tablet by brian every twelve hours Diclofenac Sodium 75 MG 1 tablet Orally Twice a day for 30 day(s) Oct, Active docusate sodium 100 mg oral capsule (10 sources) Start: 07-02-2021 take 1 capsule by mouth every twelve hours Colace 100 MG 1 capsule Orally twice a day for 14 days Do not fill 07/03/21 Jun, Not-Taking Multivitamin Tablet (2 sources) Start: 05-18-2021 End: 06-03-2024 take 1 tablet by mouth once daily Multivitamin Tablet Discontinued 1 TAB PO Daily May 18, 2021 1:00am June 03, 2024 1:45pm omeprazole 40 mg delayed release oral capsule (20 sources) Proton Pump Inhibitor Start: 05-18-2021 End: 06-03-2024 Omeprazole 40 mg capsule,delayed release(DR/EC) Discontinued 40 MG PO Q48H May 18, 2021 1:00am June 03, 2024 1:45pm take 1 capsule by mouth once ethan ly Omeprazole 40 MG 1 capsule 30 minutes before morning meal Orally Once a day Not-Taking oxyCODONE hydrochloride 5 mg oral tablet [...] relations., # 30 tab(s), Refills(s) 3, Pharmacy: [facility], 182, cm, 01/17/23 10:30:00 [...] period., # 30 tab(s), Refills(s) 3, Pharmacy: [facility], 182, cm, 12/04/20 11:58:0... [...] Active Problems Problem Classification Problem Date Documented Da te Episodic/Chronic Abdominal pain (3 sources) Generalized abdominal pain; Translations: [Generalized abdominal pain] Onset: 5 08-10-2024 Episodic Anxiety disorders (9 sources) Generalized anxiety disorder; Translations: [Generalized anxiety disorder] Onset: 4 04-02-2023 Chronic Calculus of urinary tract (20 sources) Kidney stone; Translations: [Calculus of kidney] Onset: 3 Episodic Cancer of bladder (20 sources) Malignant tumor of urinary bladder; Translations: [Malignant neoplasm of bladder, unspecified] Onset: 3 Chronic Cancer of bladder (6 sources) History of malignant neoplasm of bladder; Translations: [Personal history of malignant neoplasm of bladder] Onset: 4 Episodic Cancer; other and unspecified primary (11 sources) H/O: malignant neoplasm 06-24-2023 Episodic Chronic obstructive pulmonary disease and bronchiectasis (4 sources) Chronic obstructive lung disease; Translations: [Chronic obstructive pulmonary disease, unspecified] Onset: 5 06-10-2024 Chronic Disorders of lipid metabolism (2 sources) Dyslipidemia; Translations: [Hyperlipidemia, unspecified] 12-16-2023 Chronic Diverticulosis and diverticulitis (1 source) Diverticulosis of large intestine without perforation or abscess without bleeding; Translations: [DVRTCLOS LG INT NO PERF/ABSC W/O BL] Onset: 3 Chronic Esophageal disorders (11 sources) Gastroesophageal reflux disease without esophagitis; Translations: [Gastro-esophageal reflux disease without esophagitis] Onset: 4 04-02-2023 Chronic Comment on above: Problem List clean-u p per request of Phys. EHR Cmte Hyperplasia of prostate (20 sources) Benign prostatic hypertrophy without outflow obstruction; Translations: [Benign prostatic hyperplasia without lower urinary tract symptoms] Onset: 2 Chronic Joint disorders and dislocations; trauma-related (19 sources) Internal derangement of left knee; Translations: [Unspecified internal derangement of left knee] Chronic Neoplasms of unspecified nature or uncertain behavior (4 sources) Neoplasm of unspecified behavior of bladder; Translations: [NEOPLASM UNS BEHAVIOR OF BLADDER] Onset: 3 Episodic Nutritional deficiencies (9 sources) Vitamin D deficiency; Translations: [Vitamin D deficiency, unspecified] Onset: 4 04-02-2023 Chronic Osteoarthritis (20 sources) Arthritis of left knee; Translations: [Unilateral primary osteoarthritis, left knee] Onset: 1 Resolved: 2 Chronic Other connective tissue disease (10 sources) History of total knee arthroplasty; Translations: [Presence of left artificial knee joint] Chronic Other connective tissue disease (12 sources) Presence of left artificial knee joint; Translations: [PRESENCE LEFT ARTIFICIAL KNEE JOINT] Onset: 2 Resolved: 2 Chronic Other connective tissue disease (1 source) Tendinitis of left rotator cuff; Translations: [Other shoulder lesions, left shoulder] 08-17-2024 Episodic Other connective tissue disease (1 source) Tear of right rotator cuff; Translations: [Unspecified rotator cuff tear or rupture of right shoulder, not specified as traumatic] 08-17-2024 Episodic Other connective tissue disease (1 source) Unspecified rotator cuff tear or rupture of right shoulder, not specified as traumatic; Translations: [Rotator cuff (capsule) sprain] 08-17-2024 Episodic Other connective tissue disease (1 source) Other shoulder lesions, left shoulder; Translations: [Disorders of bursae and tendons in shoulder region, unspecified] 08-17-2024 Episodic Other diseases of bladder and urethra (1 source) Unspecified urethral stricture, male, unspecified site; Translations: [UNSP URETHRAL STRCT MALE UNSP SITE] Onset: 3 Episodic Other gastrointestinal disorders (5 sources) H/O: abdominal hernia; Translations: [Personal history of other diseases of the digestive system] Onset: 5 07-01-2024 Episodic Other lower respiratory disease (1 source) Unspecified acute lower respiratory infection; Translations: [Other diseases of respiratory system, not elsewhere classified] 06-03-2024 Episodic Other male genital disorders (11 sources) Male erectile dysfunction, unspecified; Translations: [Erectile dysfunction] Onset: 2 Chronic Other male genital disorders (20 sources) Impotence 09-20-2019 Chronic Other nervous system disorders (9 sources) Bilateral carpal tunnel syndrome; Translations: [Carpal tunnel syndrome, bilateral upper limbs] Onset: 4 04-02-2023 Chronic Other non-traumatic joint disorders (3 sources) Pain in right shoulder; Translations: [Acute pain of right shoulder] Episodic Pneumonia (except that caused by tuberculosis or sexually transmitted disease) (4 sources) Pneumonia; Translations: [Pneumonia, unspecified organism] Onset: 5 06-10-2024 Episodic Residual codes; unclassified (9 sources) Hypersomnia; Translations: [Hypersomnia, unspecified] Onset: 4 04-02-2023 Chronic Residual codes; unclassified (3 sources) Family history of cancer; Translations: [Family history of malignant neoplasm of prostate] Onset: 2 Episodic Residual codes; unclassified (20 sources) Family history of prostate cancer 01-07-2022 Episodic Residual codes; unclassified (1 source) Family history of malignant neoplasm of prostate; Translations: [FAMILY HX MALIG NEOPLASM PROSTATE] Onset: 3 Episodic Residual codes; unclassified (1 source) Personal history of other specified conditions; Translations: [PERSONAL HISTORY OTH SPEC CONDITION] Onset: 3 Episodic Spondylosis; intervertebral disc disorders; other back problems (9 sources) Degeneration of lumbar intervertebral disc; Translations: [Other intervertebral disc degeneration, lumbar region] Onset: 4 04-02-2023 Chronic Sprains and strains (7 sources) Sprain of medial collateral ligament of left knee, initial encounter; Translations: [Sprain of medial collateral ligament of left knee, subsequent encounter] Onset: 1 Resolved: 2 Episodic Substance-related disorders (8 sources) Nicotine dependence, cigarettes, uncomplicated; Translations: [Smoker] Onset: 3 04-20-2024 Chronic Comment on above: Added secondary to d ocumentation in Social History. Unclassified (1 source) Pain in right shoulder; Translations: [Pain in right shoulder] Onset: 3 Unclassified (1 source) Presence of left artificial knee joint; Translations: [Presence of left artificial knee joint] Onset: 2 Unclassified (1 source) Pain in left knee; Translations: [Pain in left knee] Onset: 2 Unclassified (1 source) Z96.652 - Presence of left artificial knee joint; Translations: [Z96.652 - Presence of left artificial knee joint] Onset: 2 Unclassified (1 source) M17.12 - Unilateral primary osteoarthritis, left knee; Translations: [M17.12 - Unilateral primary osteoarthritis, left knee] Onset: 2 Unclassified (1 source) Z01.812 - Encounter for preprocedural laboratory examination; Translations: [Z01.812 - Encounter for preprocedural laboratory examination] Onset: 2 Unclassified (1 source) Z01.818 - Encounter for other preprocedural examination; Translations: [Z01.818 - Encounter for other preprocedural examination] Onset: 2 Past or Other Problems Problem Classification Problem Date Documented Da te Episodic/Chronic Diabetes mellitus without complication (11 sources) Prediabetes; Translations: [Prediabetes] Onset: 04-02-2023 12-16-2023 Episodic Genitourinary symptoms and ill-defined conditions (20 sources) Proteinuria; Translations: [Nocturia] Onset: 06-27-2022 Resolved: 04-02-2023 09-20-2019 Episodic Joint disorders and dislocations; trauma-related (4 sources) Other tear of medial meniscus, current injury, left knee, initial encounter; Translations: [Other tear of medial meniscus, current injury, left knee, subsequent encounter] Onset: 01-10-2021 Resolved: 04-23-2021 Episodic Mood disorders (8 sources) Mood disorders Onset: 12-16-2023 12-16-2023 Other aftercare (10 sources) Long-term current use of drug therapy; Translations: [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] Onset: 12-16-2023 12-16-2023 Episodic Other connective tissue disease (9 sources) Pain in left lower limb; Translations: [Pain in left leg] Onset: 04-02-2023 04-02-2023 Episodic Other non-traumatic joint disorders (6 sources) Pain in left knee; Translations: [Acute pain of left knee M25.562] Onset: 01-10-2021 Resolved: 07-02-2021 Episodic Other non-traumatic joint disorders (9 sources) Multiple joint pain; Translations: [Pain in unspecified joint] Onset: 04-02-2023 04-02-2023 Episodic Other non-traumatic joint disorders (9 sources) Chronic pain of right upper limb; Translations: [Pain in right shoulder] Onset: 04-02-2023 04-02-2023 Episodic Other screening for suspected conditions (not mental disorders or infectious disease) (20 sources) Raised prostate specific antigen; Translations: [Elevated prostate specific antigen [PSA]] Onset: 07-26-2022 Episodic Residual codes; unclassified (9 sources) Tobacco user; Translations: [Tobacco use] Onset: 04-02-2023 01-06-2024 Episodic Spondylosis; intervertebral disc disorders; other back problems (2 sources) Radiculopathy, lumbar region; Translations: [Radiculopathy, lumbar region] Onset: 03-21-2022 Episodic Unclassified (1 source) Contact with and (suspected) exposure to covid-19 Z20.822 Viral infection (9 sources) Disease caused by 2019-nCoV; Translations: [COVID-19] Onset: 04-02-2023 Resolved: 12-16-2023 12-16-2023 Episodic Viral infection (1 source) COVID-19 Results Test Name Value Interpretation Reference Range Facil ity Urology Office/Clinic Noteon 07-30-2024 Urology Office/Clinic Note Urology Office/Clinic Note Chief Complaint BCG 3 out of 3 HPI Staff BCG 3 out 3 full dose Denies any urological issues and treatment went well the last time. Review of Systems PHQ Score Initial Depression Screen Score: 0 SCORE No fever, chills, malaise, myalgia.No abdominal pain, nausea, vomiting. No dysuria, blood in urine. No change in urgency/frequency, straining, stream changes. No discharge, odor, or change in color of urine. Physical Exam Vitals & Measurements RR: 16 BP: 116/62 WT: 188.275 lb WT: 85.4 kg General: nontoxic, NAD Mouth: moist mucosa Lungs: normal respiratory effort Cardio: regular rate, good distal perfusion Abdomen: nondistended Neurologic: Grossly normal Skin: No rashes or suspicious lesions Assessment/Plan 1. Bladder cancer (C67.9: Malignant neoplasm of bladder, unspecified) S/p TURBT w/ left stent placement 07/18/22. 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 BCG #6 - 10/2022 Cysto 12/10/22 - no classic bt found, but there are red/white areas of uncertainty. TURBT 01/09/23 - bladder mucosa with chronic inflammation, reactive changes and calcifications, no malignancy seen TURBT 02/20/23 - urothelial mucosa with acute inflammation and focal urothelial cytologic atypia, detrusor muscle is present BCG #3 - 04/2023 BCG #3 - 10/2023 Cysto/cyto/FISH neg 01/06/24. Cysto/cyto/FISH neg 04/20/24. Here today for BCG #3 of 3. UA shows small hgb only. Asx. The patient was placed in the appropriate [...] and other bladder irritation symptoms are expected. -Return for scope scheduled 08/24/24 Ordered: BCG, 50 mg, IntraVesical, Once, Stop date 07/30/24 14:13:00 EDT, Routine, Start date 07/30/24 14:13:00 EDT, 07/30/24 14:13:00 EDT Follow-up With When Contact Information [facility] [place] Additional Instructions: For procedure as scheduled. Patient Education Bladder Cancer Problem List/Past Medical History Ongoing Arthritis Bladder cancer BPH (benign prostatic hyperplasia) Elevated PSA Erectile dysfunction Family history of prostate cancer Gastroesophageal reflux disease History of bladder cancer Impotence Kidney stone [...] of prostate using ultrasound (US) guidance. Medications tadalafil 10 mg Tab, 10 mg= 1 tab(s), Oral, Daily, PRN, 3 refills Allergies No Known Allergies Social History Alcohol - Low Risk, 01/06/2024 Substance Abuse - Low Risk, 01/06/2024 Tobacco - High Risk, 01/06/2024 10 or more cigarettes (1/2 pack or more)/day in last 30 days, Smoker, current status unknown Tobacco Use:. Never Smokeless Tobacco Use:. Cigarettes, Yes, 07/29/2024 Family History Prostate cancer: Father. Immunizations Vaccine Date Status Comments BCG 07/29/2024 Given Early/Late Reason: Other : Didn't document yesterday BCG 07/22/2024 Given Early/Late Reason: Other : Forgot to document yesterday BCG 07/15/2024 Given BCG 11/20/2023 Given BCG 11/13/2023 Given BCG 11/06/2023 Given influenza virus vaccine, inactivated - Not Given Postpone due to refusal BCG 05/13/2023 Given BCG 05/05/2023 Given BCG 04/28/2023 Given BCG 10/22/2022 Given BCG 10/14/2022 Given Early/Late Reason: Other : Late documentation. Did not enter correct info BCG 10/14/2022 Given BCG 10/14/2022 Given BCG 10/08/2022 Given BCG 09/17/2022 Given BCG 09/10/2022 Given BCG 09/03/2022 Given BCG 08/27/2022 Given SARS-CoV-2 (COVID-19) mRNA BNT-162b2 vax 02/28/2021 Recorded SARS-CoV-2 (COVID-19) mRNA BNT-162b2 vax 09/01/2020 Recorded SARS-CoV-2 (COVID-19) mRNA BNT-162b2 vax 08/11/2020 Recorded Normal [facility] Comment on above: Result Comment: Elec tronically Signed By: YAHAIRA TADEO PA-C\.br\Date and Time Signed: 07/30/24 14:16 EDT Urology Office/Clinic Noteon 07-23-2024 Urology Office/Clinic Note Urology Office/Clinic Note Chief Complaint BCG #2 HPI Staff BCG 2 out of 3 full dose. Pt has no urinary complaints at this time. Denies any visible blood and abdominal/flank pain. Review of Systems No fever, chills, malaise, myalgia. No abdominal pain, nausea, vomiting. No dysuria, pain w/ ejaculation, pain w/ BM. No blood in urine, ejaculate, or stool. No change in urgency/frequency, straining, stream changes. No discharge, odor, or change in color of urine. No perineal pain/pressure, scrotal pain, or suprapubic pain. [1] Physical Exam Vitals & Measurements T: 37 ???C(Temporal Artery) HR: 62(Peripheral) RR: 16 BP: 125/66 HT: 182 cm HT: 72 in WT: 85.4 kg WT: 188.275 lb BMI: 25.78 General: nontoxic, NAD Mouth: moist mucosa Lungs: normal respiratory effort Cardio: regular rate, good distal perfusion Abdomen: nondistended Neurologic: Grossly normal Skin: No rashes or suspicious lesions Assessment/Plan 1. Bladder cancer (C67.9: Malignant neoplasm of bladder, unspecified) S/p TURBT w/ left stent placement 07/18/22. 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 BCG #6 - 10/2022 Cysto 12/10/22 - no classic bt found, but there are red/white areas of uncertainty. TURBT 01/09/23 - bladder mucosa with chronic inflammation, reactive changes and calcifications, no malignancy seen TURBT 02/20/23 - urothelial mucosa with acute inflammation and focal urothelial cytologic atypia, detrusor muscle is present BCG #3 - 04/2023 BCG #3 - 10/2023 Cysto/cyto/FISH neg 01/06/24. Cysto/cyto/FISH neg 04/20/24. Here today for BCG #2 of 3. UA shows trace hgb only. Asx. The patient was placed in the appropriate [...] and other bladder irritation symptoms are expected. -Return in 1 week for BCG #3 of 3 -Scope scheduled 08/24/24 Ordered: BCG, 50 mg, IntraVesical, Once, Stop date 07/23/24 12:17:00 EDT, Routine, Start date 07/23/24 12:17:00 EDT, 07/23/24 12:17:00 EDT Follow-up With When Contact Information YAHAIRA TADEO PA-C, URL In 1 week [address] [place] [address] Additional Instructions: Patient Education Bladder Cancer Problem List/Past Medical History Ongoing Arthritis Bladder cancer BPH (benign prostatic hyperplasia) Elevated PSA Erectile dysfunction Family history of prostate cancer Gastroesophageal reflux disease History of bladder cancer Impotence Kidney stone [...] of prostate using ultrasound (US) guidance. Medications tadalafil 10 mg Tab, 10 mg= 1 tab(s), Oral, Daily, PRN, 3 refills Rhonda BCG Live (for intravesical use), 50 mg, IntraVesical, Once Allergies No Known Allergies Social History Alcohol - Low Risk, 01/06/2024 Substance Abuse - Low Risk, 01/06/2024 Tobacco - High Risk, 01/06/2024 10 or more cigarettes (1/2 pack or more)/day in last 30 days, Smoker, current status unknown Tobacco Use:. Never Smokeless Tobacco Use:. Cigarettes, Yes, 07/22/2024 Family History Prostate cancer: Father. Immunizations Vaccine Date Status Comments BCG 07/15/2024 Given BCG 11/20/2023 Given BCG 11/13/2023 Given BCG 11/06/2023 Given influenza virus vaccine, inactivated - Not Given Postpone due to refusal BCG 05/13/2023 Given BCG 05/05/2023 Given BCG 04/28/2023 Given BCG 10/22/2022 Given BCG 10/14/2022 Given Early/Late Reason: Other : Late documentation. Did not enter correct info BCG 10/14/2022 Given BCG 10/14/2022 Given BCG 10/08/2022 Given BCG 09/17/2022 Given BCG 09/10/2022 Given BCG 09/03/2022 Given BCG 08/27/2022 Given SARS-CoV-2 (COVID-19) mRNA BNT-162b2 vax 02/28/2021 Recorded SARS-CoV-2 (COVID-19) mRNA BNT-162b2 vax 09/01/2020 Recorded SARS-CoV-2 (COVID-19) mRNA BNT-162b2 vax 08/11/2020 Re (more content not included)... [facility] Comment on above: Result Comment: Elec tronically Signed By: YAHAIRA TADEO PA-C\.br\Date and Time Signed: 07/23/24 12:19 EDT Ambulatory Visit Summaryon 0 07-22-2024 Ambulatory Visit Summary Ambulatory Visit Summary DARIAN FLORENTINO :1955 Visit Date:07/22/2024 Ambulatory Visit Instructions Your Diagnosis Bladder cancer Your Care Team Attending Physician - YAHAIRA TADEO PA-C Primary Care Physician - CATRACHO WILLIS MD This Is Your Medications List tadalafil (tadalafil 10 mg Tab) Procedures Performed [...] guidance. Discharge Vitals Temperature (Temporal Artery) 37 ???C Heart Rate (Peripheral) 62 Respiratory Rate 16 Blood Pressure 125/66 Height 182 cm Height 72 in Weight 85.4 kg Weight 188.275 lb BMI 25.78 What to do next Scheduled Follow-Up Appointments 2024 11:00 AM EDT With: YAHAIRA TADEO PA-C Where: [facility] [address] [place] [address]- Friday 1:15 PM EDT With: BARB RAMIREZ, Tonia Vasquez Where: [facility] [address] [place] [address]- Medications What How Much When Instructions Unchanged tadalafil (tadalafil 10 mg Tab) 1 Tablets By Mouth Every day as needed for for erectile dysfunction Take 1-2 pills by mouth, 1 hour prior to sexual relations. Allergies No Known Allergies Problems Ongoing - Any problem that you are currently receiving treatment for. Arthritis Bladder cancer BPH (benign prostatic hyperplasia) Elevated PSA Erectile dysfunction Family history of prostate cancer Gastroesophageal reflux disease History of bladder cancer Impotence Kidney stone Nocturia Proteinuria Smoker Split urinary stream Urinary urgency Patient Survey You may receive a survey via text or e-mail asking about your office visit. Please share your experience with us by completing your survey. We appreciate your feedback and thank you for choosing us for your care. Normal [facility] Ambulatory Visit Summaryon 0 07-15-2024 Ambulatory Visit Summary Ambulatory Visit Summary DARIAN FLORENTINO :1955 Visit Date:07/15/2024 Ambulatory Visit Instructions Your Diagnosis Bladder cancer Your Care Team Attending Physician - YAHAIRA TADEO PA-C Primary Care Physician - CATRACHO WILLIS MD This Is Your Medications List Contact prescribing physician if questions or concerns tadalafil (tadalafil 10 mg Tab) Procedures Performed [...] (US) guidance. Discharge Vitals Temperature (Temporal Artery) 36.4 ???C Heart Rate (Peripheral) 57 Respiratory Rate 16 Blood Pressure 124/78 Height 182 cm Height 72 in Weight 85.5 kg Weight 188.495 lb BMI 25.81 What to do next Scheduled Follow-Up Appointments July. 2024 10:20 AM EDT With: YAHAIRA TADEO PA-C Where: [facility] [address] [place] [address] [place] [address] 2024 11:00 AM EDT With: YAHAIRA TADEO PA-C Where: [facility] [address] [place] [address] [place] [address]- Friday 1:15 PM EDT With: Tonia DAY MD Where: [facility] [address] [place] [address]- You Need to Schedule the Following Appointments Follow Up with YAHAIRA TADEO PA-C, URL When: In 1 week Where: [address] [place] [address] Medications What How Much When Instructions Unchanged tadalafil (tadalafil 10 mg Tab) 1 Tablets By Mouth Every day as needed for for erectile dysfunction Take 1-2 pills by mouth, 1 hour prior to sexual relations. Contact prescribing physician if questions or concerns Allergies No Known Allergies Problems Ongoing - Any problem that you are currently receiving treatment for. Arthritis Bladder cancer BPH (benign prostatic hyperplasia) Elevated PSA Erectile dysfunction Family history of prostate cancer Gastroesophageal reflux disease History of bladder cancer Impotence Kidney stone [...] you more likely to develop this condition: ??? Smoking. ??? Working where there are risks (occupational exposures), such as working with rubber, leather, clothing fabric, dyes, chemicals, or paint. ??? Being 55 years of age or older. ??? Being male. ??? Having long-term bladder inflammation. ??? Having a history of cancer. This includes: ? A family history of bladder cancer. ? Having had bladder cancer before. ? Having had certain treatments for cancer before, such as: ? Medicines to kill cancer cells (chemotherapy). ? Strong X-ray beams or high-energy capsules to kill cancer cells and shrink tumors (radiation therapy). ??? Having been exposed to arsenic. This is a poisonous substance. What are the signs or symptoms? Early symptoms of this condition include: ??? Blood in your urine. ??? Pain when urinating. ??? Infections of your urinary system (urinary tract infections or UTIs) that happen often. ??? Having to urinate sooner or more often than normal. Late symptoms of this condition include: ??? Not being able to urinate. ??? Pain on one side of your lower back. ??? Loss of appetite. ??? Weight loss. ??? Tiredness (fatigue). ??? Swelling in your feet. ??? Bone pain. How is this diagnosed? This condition is diagnosed based on: ??? Your medical history. ??? A physical exam. ??? Lab tests, such as urine tests. ??? Imaging tests. ??? Your symptoms. You may also have other tests or procedures, such as: ??? A cystoscopy. This involves p (more content not included)... Normal [facility] Urology Office/Clinic Noteon 07-15-2024 Urology Office/Clinic Note Urology Office/Clinic Note Chief Complaint BCG 1 out of 3 full dose HPI Staff 69 year old male patient here for BCG dose 1 of 3 (full dose). Pt will need consent signed. Dx: hx of bladder cancer and ED. Denies any urological issues at this time Review of Systems PHQ Score Initial Depression Screen Score: 0 SCORE No fever, chills, malaise, myalgia. No abdominal pain, nausea, vomiting. No dysuria, pain w/ ejaculation, pain w/ BM. No blood in urine, ejaculate, or stool. No change in urgency/frequency, straining, stream changes. No discharge, odor, or change in color of urine. No perineal pain/pressure, scrotal pain, or suprapubic pain. Physical Exam Vitals & Measurements T: 36.4 ???C(Temporal Artery) HR: 57(Peripheral) RR: 16 BP: 124/78 HT: 182 cm HT: 72 in WT: 85.5 kg WT: 188.495 lb BMI: 25.81 General: nontoxic, NAD Mouth: moist mucosa Lungs: normal respiratory effort Cardio: regular rate, good distal perfusion Abdomen: nondistended Neurologic: Grossly normal Skin: No rashes or suspicious lesions Assessment/Plan 1. Bladder cancer (C67.9: Malignant neoplasm of bladder, unspecified) S/p TURBT w/ left stent placement 07/18/22. 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 BCG #6 - 10/2022 Cysto 12/10/22 - no classic bt found, but there are red/white areas of uncertainty. TURBT 01/09/23 - bladder mucosa with chronic inflammation, reactive changes and calcifications, no malignancy seen TURBT 02/20/23 - urothelial mucosa with acute inflammation and focal urothelial cytologic atypia, detrusor muscle is present BCG #3 - 04/2023 BCG #3 - 10/2023 Cysto/cyto/FISH neg 01/06/24. Cysto/cyto/FISH neg 04/20/24. Here today for BCG #1 of 3. UA shows trace hgb only. Asx. The patient was placed in the appropriate [...] and other bladder irritation symptoms are expected. -Return in 1 week for BCG #2 of 3 -Scope scheduled 08/24/24 Ordered: BCG, 50 mg, IntraVesical, Once, Stop date 07/15/24 11:35:00 EDT, Routine, Start date 07/15/24 11:35:00 EDT, 07/15/24 11:35:00 EDT Urnls Dip Stick Auto w/o Microscopy POC 97120 Orders: ciprofloxacin, 500 mg = 1 tab(s), Oral, Daily, Take 1 tablet the day before the procedure and 1 tablet after the procedure, # 8 tab(s), Refills(s) 0, Pharmacy: [id number], 182, cm, 01/06/24 14:00:00 EDT, Height/Length Dosing, 85, kg, 01/06/24 14:00:00 EDT... Follow-up With When Contact Information ETHAN VILLALTA, YAHAIRA Hallman, URL In 1 week [address] [place] [address] Additional Instructions: Patient Education Bladder Cancer Problem List/Past Medical History Ongoing Arthritis Bladder cancer BPH (benign prostatic hyperplasia) Elevated PSA Erectile dysfunction Family history of prostate cancer Gastroesophageal reflux disease History of bladder cancer Impotence Kidney stone [...] of prostate using ultrasound (US) guidance. Medications tadalafil 10 mg Tab, 10 mg= 1 tab(s), Oral, Daily, PRN, 3 refills Allergies No Known Allergies Social History Alcohol - Low Risk, 01/06/2024 Substance Abuse - Low Risk, 01/06/2024 Tobacco - High Risk, 01/06/2024 10 or more cigarettes (1/2 pack or more)/day in last 30 days, Smoker, current status unknown Tobacco Use:. Never Smokeless Tobacco Use:. Cigarettes, Yes, 07/15/2024 Family History Prostate cancer: Father. Immunizations Vaccine Date Status Comments BCG 07/15/2024 Given BCG 11/20/2023 Given BCG 11/13/2023 Given BCG 11/06/2023 Given influenza virus vaccine, inactivated - Not Given Postpone due to refusal BCG 05/13/2023 Given BCG 05/05/2023 Given BCG 04/28/2023 Given BCG 10/22/2022 Given BCG 10/14/2022 Given Early/Late Reason: Other : Late doc (more content not included)... Normal [facility] Comment on above: Result Comment: Elec tronically Signed By: YAHAIRA TADEO PA-C\.br\Date and Time Signed: 07/15/24 12:[address] LUNG SCREENING LOW DOSEon 06-24-[address] [address] [address] Scan Report Signed Patient: DARIAN FLORENTINO MR#: [id number] : 1955 Acct:[id number] Age/Sex: 69 / M ADM Date: 06/24/24 Loc: CT Attending Dr: Catracho Willis M.D. Ordering Physician: Catracho Willis M.D. Date of Service: 06/24/24 Procedure(s): CT lung screening low-dose Accession Number(s): [id number] cc: Catracho Willis M.D. [address] [address] Patient Name: DARIAN FLORENTINO MRN: [id number] date: 1955 Sex: M Assigned Patient Location: CT Current Patient Location: CT Accession/Order Number: [id number] Exam Date: 06/24/2024 12:16 Report Date: 06/24/2024 12:28 At the request of: CATRACHO WILLIS MD Procedure: CT lung screening low-dose [...] Apple Lentz M.D.06/24/2024 12:28 PM Dictation Location: [place] [address] Electronically authenticated by: [id number] Y Date: 06/24/2024 12:28 Dictated By: Apple Lentz M.D. Signed By: 06/24/24 1230 DD/ 1228 TD/TT: Sap Administrator: [facility] Radiology, Radiologist, - 06/24/2024 [place] [address] CT Scan Report Signed Patient: DARIAN FLORENTINO MR#: [id number] : 1955 Acct:[id number] Age/Sex: 69 / M ADM Date: 06/24/24 Loc: CT Attending Dr: Catracho Willis M.D. Ordering Physician: Catracho Willis M.D. Date of Service: 06/24/24 Procedure(s): CT lung screening low-dose Accession Number(s): [id number] cc: Catracho Willis M.D. [address] [address] Patient Name: DARIAN FLORENTINO MRN: [id number] date: 1955 Sex: M Assigned Patient Location: CT Current Patient Location: CT Accession/Order Number: [id number] Exam Date: 06/24/2024 12:16 Report Date: 06/24/2024 12:28 At the request of: CATRACHO WILLIS MD Procedure: CT lung screening low-dose [...] Apple Lentz M.D.06/24/2024 12:28 PM Dictation Location: [place] [address] Electronically authenticated by: [id number] Y Date: 06/24/2024 12:28 Dictated By: Apple Lentz M.D. Signed By: 06/24/24 1230 DD/ 1228 TD/TT: Sap Administrator: [facility] Radiology Study observation (narrative) [facility] CT LUNG SCREENING LOW DOSEOr dered By: Radiologist Radiology on 06-24-2024 [facility] Work Phone: COVID Cepheidon 06-03-2024 SARS-CoV-2 (COVID-19) RNA VIC+probe Ql (Unsp spec) COVID Cepheid [facility] - Microbiology an d Antimicrobial susceptibilityon 06-03-2024 SARS-CoV-2 (COVID-19) RNA VIC+probe Ql (Unsp spec) Negative [facility] No Panel Informationon 06-03 POC Influenza A (PCR) Negative [facility] POC Influenza B (PCR) Negative [facility] MHPT PSA, DIAGNOSTICon 05-31 PROSTATE SPECIFIC ANTIGEN DX 1.28 ng/mL NINF - 4.00 ng/mL [facility]roV[facility] Fish and Urine Cyt o ([facility])on 04-28-2024 UVF[facility] & UC Diagnosis Info Invalid Interpretation Code [facility] Comment on above: Result Comment: A:Ur [...] with cytology and cystoscopy results. * CPT: 97061, 53237. Microscopic Notes - Microscopic Notes - Abnormal cells 9p21 deletions: Abnormal cells aneploid events: Total cells analyzed: 26 Hematuria: Gross Description Site ID:A color Yellow fixative Alcohol Received 100 mls of clear yellow fluid with the patient's name and, Bladder Wash on the vial. Electronically signed by : on: 04/28/2024 08:58:54 Performed By: #### 1 [id number] #### [facility] [address] [place] [address] Ambulatory Visit Summaryon 0 04-20-2024 Ambulatory Visit Summary Ambulatory Visit Summary DARIAN FLORENTINO :1955 Visit Date:04/20/2024 Ambulatory Visit Instructions Your [...] When: Where: [facility] [address] [place] [address]- Medications What How Much When Instructions Unchanged [...] and co (more content not included)... Normal [facility] UroVysion Fish and Urine Cyt o ( Labs)on 04-20-2024 [facility] Method of Extraction Bladder Wash Normal [facility] Comment on above: Performed By: #### 1 [id number] #### [facility] [address] [place] [address] [facility] Number of Jars 1 Invalid Interpretation Code [facility] Comment on above: Performed By: #### 1 [id number] #### [facility] [address] [facility] [place] [address] [facility] Specimen Bladder Wash Normal [facility] Comment on above: Performed By: #### 1 [id number] #### [facility] [address] [facility] [place] [address] [facility] Type of Service Technical Only Normal [facility] Comment on above: Performed By: #### 1 [id number] #### [facility] [address] [facility] [place] [address] Urology Office/Clinic Noteon 04-20-2024 Urology Office/Clinic Note Urology Office/Clinic Note Chief Complaint Cysto HPI Staff Cysto ABX TAKEN, need fish/cytol History of Present Illness Tests reviewed: I have reviewed the previous health record information and history for this patient from Dr. Day. I have reviewed and verified the staff [...] calcifications. Path sent for second opinion at [facility] - Neg. Benign urothelial mucosa with LP [...] [facility] [address], [place] [address]- Additional Instructions: Schedule BCG x 3 to be done w/in next 2 mos then 3 mo cysto Patient Education Cancer Screening for Males I, Betzaida David, personally scribed for Dr. Day on 04/20/2024 15:00:52. . Documentation recorded by the scribe, Betzaida David, accurately reflects the services(s) I performed and decisions made by me. Authenticated by Dr. Day on 04/20/2024 15:04:40. Problem List/Past Medical History [...] refills tadal (more content not included)... Normal [facility] Comment on above: Result Comment: Elec tronically Signed By: Tonia DAY MD\.br\Date and Time Signed: 04/20/24 15:04 EST\.br\Electronically [...] ck) Spoke to ptpiter for 04/20/24 in [place] office.[facility] Normal [facility] UroVysion Fish and Urine Cyt o ([facility])on 01-12-2024 [facility] & UC Diagnosis Info Invalid Interpretation Code [facility] Comment on above: Result Comment: A:Ur [...] with cytology and cystoscopy results. * CPT: 81323, 87716. MicroScopic Description - MicroScopic Description - Electronically signed by : on: 01/12/2024 13:43:52 Performed By: #### 1 [id number] #### [facility] [address] [place] [address] [facility] Fish and Urine Cyt o ([facility])on 01-06-2024 [facility] Method of Extraction Bladder Wash Normal [facility] Comment on above: Performed By: #### 1 [id number] #### [facility] [address] [facility] [place] [address] [facility] Number of Jars 1 Invalid Interpretation Code [facility] Comment on above: Performed By: #### 1 [id number] #### [facility] [address] [facility] [place] [address] [facility] Specimen Bladder Wash Normal [facility] Comment on above: Performed By: #### 1 [id number] #### [facility] [address] [facility] [place] [address] [facility] Type of Service Technical Only Normal [facility] Comment on above: Performed By: #### 1 [id number] #### [facility] [address] [facility] [place] [address] Urology Office/Clinic Noteon 01-06-2024 Urology Office/Clinic Note Urology Office/Clinic Note Chief Complaint Patient is here for Cysto. HPI Staff Cysto ABX TAKEN, need fish/cytol History of Present Illness Tests reviewed: I have reviewed the previous health record information and history for this patient from Dr. Day. I have reviewed and verified the staff [...] calcifications. Path sent for second opinion at [facility] - Neg. Benign urothelial mucosa with LP [...] this time. Follow-up With When Contact Information Tonia DAY MD, URL [facility] [address], [place] [address]- Additional Instructions: 3 mos surveillance cysto/bt ck/FISH/cytol Patient Education Erectile Dysfunction Cancer Screening for Males I, Betzaida David, personally scribed for Dr. Day on 01/06/2024 14:20:29. . Documentation recorded by the scribe, Betzaida David, accurately reflects the services(s) I performed and decisions made by me. Authenticated by Dr. Day on 01/06/2024 14:23:17. Problem List/Past Medical History [...] tumor (01/09/2023), (more content not included)... Normal [facility] Comment on above: Result Comment: Elec tronically Signed By: Tonia DAY MD\.br\Date and Time Signed: 01/06/24 14:23 EDT\.br\Electronically Co-Signed By: Betzaida David P\.br\Date and Time Co-Signed: 01/06/24 14:20 EDT\.br\Electronically Co-Signed By: Betzaida David P\.br\Date and Time Co-Signed: 01/06/24 14:21 EDT ALL CBC WITH AUTO DIFFon BASOPHILS ABSOLUTE AUTO 0.0 [facility] Basophils/100 WBC (Bld) 0.1 % Low 0.2 - 2.0 % [facility] Eosinophils/100 WBC (Bld) 0.1 % Low 0.9 - 7.0 % [facility] Erythrocyte distribution width (RBC) [Ratio] 13.1 % 11.0 - 15.0 % [facility] Hematocrit (Bld) [Volume fraction] 48.8 % 42.0 - 54.0 % [facility] Hemoglobin (Bld) [Mass/Vol] 16.0 g/dL 14.0 - 18.0 g/dL [facility] IMMATURE GRANULOCYTES ABS AUTO 0.03 [facility] Immature granulocytes/100 WBC (Bld) 0.4 % 0.0 - 0.5 % [facility] Interpretation and review of laboratory results Abnormal [facility] LYMPHOCYTES ABSOLUTE AUTO 1.9 [facility] Lymphocytes/100 WBC (Bld) 26.1 % 20.5 - 60.0 % [facility] MCH (RBC) [Entitic mass] 30.9 pg 25.9 - 34.0 pg [facility] MCHC (RBC) [Mass/Vol] 32.8 g/dL 29.9 - 35.2 g/dL [facility] MCV (RBC) [Entitic vol] 94.4 fL High 80.0 - 94.0 fL [facility] MONOCYTES ABSOLUTE AUTO 0.6 [facility] Monocytes/100 WBC (Bld) 7.9 % 1.7 - 12.0 % [facility] NEUTROPHILS ABSOLUTE AUTO 4.7 [facility] Neutrophils/100 WBC (Bld) 65.4 % 43.0 - 75.0 % [facility] Platelet mean volume (Bld) [Entitic vol] 10.4 fL 9.5 - 13.5 fL [facility] EO # 0.0 [facility] PLT [address] [facility] RBC 5.17 [facility] WBC 7.1 [facility] [facility] Reminderson 11-21-2023 Reminders Reminders - From: Zee Briones To: TYRONE - Maricarmen Day; Cc: Zee Briones; Sent: 05/13/2023 09:52:37 EST Show up: 08/23/2023 09:52:00 EDT Subject: cysto/fish/cytol Due Date/Time: 09/08/2023 09:52:00 EDT Reminder/Recall Patient is due in September 2023 for 3 month cysto/fish/cytol Patient sched for 09/30/23 in [place] office.LG Patient will be due in Dec 2023 for 3 mo cysto/fish./cytol (3 mo bt ck) Patient sched for 01/06/[address] [facility] office. New niharika.LG Normal [facility] Urology Office/Clinic Noteon 11-20-2023 Urology [...] BCG today due to national shortage. EORTC 46750 trial showed no difference between 1/3 dose and full-dose BCG in patients with high-risk disease. Pt is aware of the reasoning and is amenable to proceed as discussed. -Schedule surveillance cysto for 12/2023 Follow-up With When Contact Information BARB RAMIREZ, Tonia Vasquez, URL [facility] [address], [place] [address]- [phone] Additional Instructions: sched surveillance cysto 12/2023 Patient Education Chemotherapy Documentation recorded by the nolan Paul accurately reflects the services(s) I performed and decisions made by me. Authenticated by Yahaira Tadeo PA-C on 11/20/2023 15:07:28. Lisset Smallwood, personally scribed for Yahaira Tadeo PA-C on 11/20/2023 15:03:53. . Problem List/Past [...] refusal BCG (more content not included)... Normal [facility] Comment on above: Result Comment: Elec tronically Signed By: YAHAIRA TADEO PA-C\.br\Date and Time Signed: 11/20/23 15:07 EDT\.br\Electronically Co-Signed By: Lisset Paul\.br\Date and Time Co-Signed: 11/20/23 15:06 EDT Ambulatory Visit Summaryon 0 11-13-2023 Ambulatory Visit Summary Ambulatory Visit Summary DARIAN FLORENTINO :1955 Visit Date:11/13/2023 Ambulatory Visit Instructions Your Diagnosis History of bladder cancer Your Care Team Attending Physician - YAHAIRA TADEO PA-C Primary Care Physician - CATRACHO WILLIS [...] Appointments 2023 2:20 PM EDT With: YAHAIRA TADEO PA-C Where: [facility] [address] [place] [address]- You Need to Schedule the Following Appointments Follow Up with YAHAIRA TADEO PA-C, URL When: Comments: BCG #3 of 3 in 1 week Where: [address] [place] [address] Medications What How Much When [...] to collect (more content not included)... Normal [facility] Urology Office/Clinic Noteon 11-13-2023 Urology Office/Clinic Note [...] for this patient from MAX Estrada& Dr. Day. I have reviewed and verified the staff [...] BCG today due to national shortage. EORTC 38694 trial showed no difference between 1/3 dose and full-dose BCG in patients with high-risk disease. Pt is aware of the reasoning and is amenable to proceed as discussed. -BCG #3 of 3 half dose in 1 week -Cysto in 3 mos, after BCG treatment Follow-up With When Contact Information YAHAIRA TADEO PA-C, URL [address] [facility] [place] [address] Additional Instructions: BCG #3 of 3 in 1 week Patient Education Cancer Screening for Men Documentation recorded by the nolan Greenwood accurately reflects the services(s) I performed and decisions made by me. Authenticated by Yahaira Tadeo PA-C on 11/13/2023 15:04:58. IZheng, personally scribed for Yahaira Tadeo PA-C on 11/13/2023 14:47:12. . Problem List/Past [...] concerns: No. (more content not included)... Normal [facility] Comment on above: Result Comment: Elec tronically Signed By: YAHAIRA TADEO PA-C\.br\Date and Time Signed: 11/13/23 15:05 EDT\.br\Electronically Co-Signed By: Zheng Greenwood\.br\Date and Time Co-Signed: 11/13/23 14:47 EDT Ambulatory Visit Summaryon 0 11-06-2023 Ambulatory Visit Summary Ambulatory Visit Summary DARIAN FLORENTINO :1955 Visit Date:11/06/2023 Ambulatory Visit Instructions Your Diagnosis History of bladder cancer Your Care Team Attending Physician - YAHAIRA TADEO PA-C Primary Care Physician - CATRACHO WILLIS [...] Appointments 2023 2:20 PM EDT With: YAHAIRA TADEO PA-C Where: [facility] [address] [address]- 2023 2:20 PM EDT With: YAHAIRA TADEO PA-C Where: [facility] [address] [address]- You Need to Schedule the Following Appointments Follow Up with YAHAIRA TADEO PA-C, URL When: Comments: 1 week for BCG #2 of 3 half dose Where: [address] [place] [address] Medications What How Much When [...] A cyst (more content not included)... Normal [facility] Urology Office/Clinic Noteon 11-06-2023 Urology Office/Clinic Note [...] and history for this patient from Dr. Day. I have reviewed and verified the staff [...] BCG today due to national shortage. EORTC 12556 trial showed no difference between 1/3 dose and full-dose BCG in patients with high-risk disease. Pt is aware of the reasoning and is amenable to proceed as discussed. -BCG #2 of 3 half dose in 1 week -Cysto in 3 mos, after BCG treatment Follow-up With When Contact Information ETHAN VILLALTA, YAHAIRA Hallman, URL [address] [facility] [place] [address] Additional Instructions: 1 week for BCG #2 of 3 half dose Patient Education Bladder Cancer Documentation recorded by the nolan Greenwood accurately reflects the services(s) I performed and decisions made by me. Authenticated by Yahaira Tadeo PA-C on 11/06/2023 14:53:40. I, Zheng Greenwood, personally scribed for Yahaira Tadeo PA-C on 11/06/2023 14:51:58. . Problem List/Past [...] ([place]) zabrina (more content not included)... Normal [facility] Comment on above: Result Comment: Elec tronically Signed By: YAHAIRA TADEO PA-C\.br\Date and Time Signed: 11/06/23 14:53 EDT\.br\Electronically Co-Signed By: Zheng Greenwood\.br\Date and Time Co-Signed: 11/06/23 14:52 EDT U[facility]Vysion Fish and Urine Cyt o ([facility])on 10-06-2023 UVFISH & UC Diagnosis Info Invalid Interpretation Code [facility] Comment on above: Result Comment: A:Ur [...] on: 10/06/2023 17:48:05 Performed By: #### 1 [id number] #### [facility] [address] [place] [address] Ambulatory Visit Summaryon 0 09-30-2023 Ambulatory Visit Summary Ambulatory Visit Summary DARIAN FLORENTINO :1955 Visit Date:09/30/2023 Ambulatory Visit Instructions Your [...] When: Where: [facility] [address] [place] [phone] Medications What How Much When Instructions Unchanged [...] for blood (more content not included)... Normal [facility] UroVysion Fish and Urine Cyt o ( Labs)on 09-30-2023 UVUC Method of Extraction Bladder Wash Normal [facility] Comment on above: Performed By: #### 1 [id number] #### [facility] [address] [facility] [place] [address] [facility] Number of Jars 1 Invalid Interpretation Code [facility] Comment on above: Performed By: #### 1 [id number] #### [facility] [address] [facility] [place] [address] [facility] Specimen Bladder Wash Normal [facility] Comment on above: Performed By: #### 1 [id number] #### [facility] [address] [place] [address] [facility] Type of Service Global Normal [facility] Comment on above: Performed By: #### 1 [id number] #### [facility] [address] [place] [address] Urology Office/Clinic Noteon 09-30-2023 Urology Office/Clinic Note Urology Office/Clinic Note Chief Complaint cysto with fish/cytol HPI Staff Cysto with FISH/CYTOL. ABX taken History of Present Illness Tests reviewed: reviewed FISH/cytology I have reviewed the previous health record information and history for this patient from Dr. Day. I have reviewed and verified the staff [...] [facility] [address], [place] [phone] Additional Instructions: schedule 3 BCGs, cyst in 3 mos Patient Education Cancer Screening for Men I, Lisset Paul, personally scribed for Dr. Day on 09/30/2023 14:13:09. . Documentation recorded by the scribe, Lisset Paul, accurately reflects the services(s) I performed and decisions made by me. Authenticated by Dr. Day on 09/30/2023 14:15:49. Problem List/Past Medical History [...] of knee (more content not included)... Normal [facility] Comment on above: Result Comment: Elec tronically Signed By: Tonia DAY MD\.br\Date and Time Signed: 09/30/23 14:15 EDT\.br\Electronically Co-Signed By: Lisset Paul\.br\Date and Time Co-Signed: 09/30/23 14:13 EDT UroVysion Fish and Urine Cyt o ([facility])on 06-30-2023 UVFISH & UC Diagnosis Info Invalid Interpretation Code [facility] Comment on above: Result Comment: A:Ur [...] correlated with cytology and cystoscopy results.* CPT 25919, 63093 Microscopic Notes - Microscopic Notes - Abnormal cells 9p21 deletions: Abnormal cells aneploid events: Total cells analyzed: 93 Hematuria: Gross Description Site ID:A color Yellow fixative Alcohol Received 100 mls of clear yellow fluid with the patient's name and, Bladder Wash on the vial. Electronically signed by : on: 06/30/2023 12:01:35 Performed By: #### 1 [id number] ####[facility] [address] [place] [address] Consent for Procedure/Surger yon 06-25-2023 Consent for Procedure/Surgery [id number]# 1.00TIFF Normal [facility] Ambulatory Visit Summaryon 0 06-24-2023 Ambulatory Visit Summary HENRIQUEDARIAN Maury :1955 Visit Date:06/24/2023 Ambulatory Visit Instructions Your [...] Aranda When: Where: [facility] [address] [place] [address] [phone] Medications What How Much When Instructions Unchanged [...] Prostate canc (more content not included)... Normal [facility] Patient Educationon 04-02-20 24 Patient Education Oncology Cancer Screening for Men [...] if anything looks unusual. Men with a iwadwy-mgua-shzsuo risk for skin cancer may want to see a industrial safety and health specialist (astronomy teacher) for an annual body check. What are the benefits of screening? Cancer screening is done to look for cancer in the very early stages, before it spreads and becomes harder to treat and before you would start to notice symptoms. Finding cancer early improves the chances of successful treatment. It ma (more content not included)... Normal [facility] UroVysion Fish and Urine Cyt o ([facility])on 06-24-2023 [facility] Method of Extraction Bladder Wash Normal [facility] Comment on above: Performed By: #### 1 [id number] ####[facility] [address] [place] [address] [facility] Number of Jars 1 Invalid Interpretation Code [facility] Comment on above: Performed By: #### 1 [id number] ####[facility] [address] [place] [address] [facility] Specimen Bladder Wash Normal [facility] Comment on above: Performed By: #### 1 [id number] ####[facility] [address] [place] [address] [facility]UC Type of Service Technical Only Normal [facility] Comment on above: Performed By: #### 1 [id number] ####[facility] [address] [place] [address] Urology Office/Clinic Noteon 06-24-2023 Urology Office/Clinic Note Chief Complaint Pt is here for cystoscopy HPI Staff Darian is a 68 y.o. male here for cystoscopy. FISH/CYTOL needed. ABX taken History of Present Illness Tests reviewed: none I have reviewed the previous health record information and history for this patient from Dr. Day and MAX Estrada. I have reviewed and [...] [facility] [address], [place] [address]- [phone] Additional Instructions: 3 mos for cysto Patient Education Cancer Screening for Men I, Lisset Paul, personally scribed for Dr. Day on 06/24/2023 13:23:26. . Documentation recorded by the scribe, Lisset Paul, accurately reflects the services(s) I performed and decisions made by me. Authenticated by Dr. Day on 06/24/2023 13:25:13. Problem List/Past Medical History [...] - Transurethra (more content not included)... Normal [facility] Comment on above: Result Comment: Elec tronically Signed By: Tonia DAY MD\.br\Date and Time Signed: 06/24/23 13:25 EDT\.br\Electronically Co-Signed By: Lisset Paul\.br\Date and Time Co-Signed: 06/24/23 13:23 EDT Ambulatory Visit Summaryon 0 05-13-2023 Ambulatory Visit Summary DARIAN FLORENTINO :1955 Visit Date:05/13/2023 Ambulatory Visit Instructions Your Diagnosis Nocturia Urinary urgency Elevated PSA Bladder cancer Your Care Team Attending Physician - YAHAIRA TADEO PA-C Primary Care Physician - CATRACHO WILLIS [...] RAMIREZ, Tonia Vasquez Where: [facility] Patient Educationon 05-13-19 24 Patient Education Oncology Bladder Cancer Bladder cancer [...] Follow these instructions at home: ? Take kmja-nzw-lbbtrnk and prescription medicines only as told by [...] important. Where to find more information ? [place] [employer] (ACS): cancer.org ? National Cancer Corb[employer] (NCI): cancer.gov Contact a health care provider [...] have wi (more content not included)... Normal [facility] Urology Office/Clinic Noteon 05-13-2023 Urology Office/Clinic [...] E&M of Est. Patient Moderate 30-39 Min 50872 2. Urinary urgency (R39.15: Urgency of urination) [...] E&M of Est. Patient Moderate 30-39 Min 62952 Urnls Dip Stick Auto w/o Microscopy POC 00058 Follow-up With When Contact Information [facility] [address] [place] [address] Business (1) Additional Instructions: for [...] History Toba (more content not included)... Normal [facility] Comment on above: Result Comment: Elec tronically Signed By: YAHAIRA TADEO PA-C.cristobal\Date and Time Signed: 05/13/23 09:55 EST Ambulatory [...] Appointments Friday 9:00 AM EST With: YAHAIRA TADEO PA-C Where: [facility] Normal [facility] Patient Educationon 05-05-19 Patient Education Oncology Chemotherapy [...] not available, use an alcohol based hand safety fire boss that contains at least 60% alcohol. Have [...] y (more content not included)... Normal [facility] Urology Office/Clinic Noteon 05-05-2023 Urology [...] and history for this patient from Dr. Day. I have reviewed and verified the staff [...] [facility] [address], [place] [phone] Additional Instructions: BCG #3/3 on 05/13/23 Patient Education Chemotherapy I, Lisset Paul, personally scribed for Dr. Day on 05/05/2023 09:36:49. . Documentation recorded by the scribeLisset, accurately reflects the services(s) I performed and decisions made by me. Authenticated by Dr. Day on 05/05/2023 09:40:59. Problem List/Past Medical History [...] tumor (07/18/2022), (more content not included)... Normal [facility] Comment on above: Result Comment: Elec tronically Signed By: Tonia DAY MD\.br\Date and Time Signed: 05/05/23 09:41 EST\.br\Electronically Co-Signed By: Lisset Paul\.br\Date and Time Co-Signed: 05/05/23 09:38 EST Ambulatory Visit Summaryon 0 04-28-2023 Ambulatory Visit Summary DARIAN FLORENTINO :1955 Visit Date:04/28/2023 Ambulatory Visit Instructions Your Diagnosis Bladder cancer Family history of prostate cancer Nocturia Impotence Your Care Team Attending Physician - Tonia DAY MD Primary Care Physician - CATRACHO WILLIS [...] Appointments Friday 8:30 AM EST With: Tonia DAY MD Where: [facility] Normal [address] [place] [address] [place] [address]- \.br\ You Need to Schedule the Following Appointments\.b r\ Follow Up with Tonia DAY MD, URL When: \.br\ Comments:\.br\ f/u scheduled 05/05/23 for BCG #2/3\.br\ Where:\.br\ [facility] [address]\ [place] [address].br\ [phone]\.br\ Medications\.br \ What How Much When Instructions\.b r\ Unchanged mirabegron (Myrbetriq 50 mg oral tablet, extended release) 1 Tablets By Mouth Every day\.br\ Unchanged tadalafil (tadalafil 10 mg Tab) 1 Tablets By Mouth Every day as needed for for erectile dysfunction Take 1-2 pills by mouth, 1 hour prior to sexual relations. \.br\ Medications and Immunizations Administered\.b r\ Given\.br\ [place] BCG Live (for intravesical use), 50 mg, [...] not available, use an alcohol based hand safety fire boss that contains at least 60% alcohol. Have [...] flush.\.br\ ? \.br\ Wash your hands lindy [facility] Patient Educationon 04-28-19 Patient Education Oncology [...] not available, use an alcohol based hand safety fire boss that contains at least 60% alcohol. Have [...] long y (more content not included)... Normal [facility] Urology Office/Clinic Noteon 04-28-2023 Urology Office/Clinic [...] and history for this patient from Dr. Day. I have reviewed and verified the staff [...] [facility] [address], [place] [address] [phone] Additional Instructions: f/u scheduled 05/05/23 for BCG #2/3 Patient Education Chemotherapy I, Lisset Paul, personally scribed for Dr. Day on 04/28/2023 09:16:46. . Documentation recorded by the jacquelineibLisset hallman, accurately reflects the services(s) I performed and decisions made by me. Authenticated by Dr. Day on 04/28/2023 09:24:43. Problem List/Past Medical History Ongoing Bladder cancer BPH (benign prostatic hyperplasia) Elevated PSA Family history of prostate cancer Impotence Kidney stone Nocturia Proteinuria Split urinary stream Historical No qualifying data Procedure/Surgical History TURBT - Transurethral resection of bladder tumor (02/20/2023), TURBT - Transurethral resection of bladder tumor (01/09/2023), Cystoscopy ( (more content not included)... Normal [facility] Comment on above: Result Comment: Elec tronically Signed By: Tonia DAY MD\.br\Date and Time Signed: 04/28/23 09:24 EST\.br\Electronically Co-Signed By: Lisset Paul\.br\Date and Time Co-Signed: 04/28/23 09:19 EST COVID + FLU Quick Testingon 03-28-2023 SARS-CoV-2 (COVID-19) RNA VIC+probe Ql (Unsp spec) Positive [facility] [employer] Other COVID + FLU Quick Testing Negative [employer] Other CBC AUTO DIFFon 07-17-2022 BASO # 0.0 103/ul Normal 0.0-0.1 [facility] Comment on above: Performed By: #### C BC #### [facility] [address] [place] [address] Dr. Viktoria Nuñez Basophils/100 WBC (Bld) 0.3 % Normal 0.2-2.0 [facility] Comment on above: Performed By: #### C BC #### [facility] [address] [place] [address] Dr. Viktoria Nuñez EO # 0.0 103/ul Normal 0.0-0.7 [facility] Comment on above: Performed By: #### C BC #### [facility] [address] [address] [address] Viktoria Nuñez Eosinophils/100 WBC (Bld) 0.0 % Critically low 0.9-7.0 [facility] Comment on above: Performed By: #### C BC #### [facility] [address] [address] [address] Viktoria Nuñez Erythrocyte distribution width (RBC) [Ratio] 13.2 % Normal 11.0-15.0 [facility] Comment on above: Performed By: #### C BC #### [facility] [address] [place] [address] Dr. Viktoria Nuñez Hematocrit (Bld) [Volume fraction] 47.3 % Normal 42.0-54.0 [facility] Comment on above: Performed By: #### C BC #### [facility] [address] [place] [address] Dr. Viktoria Nuñez Hemoglobin (Bld) [Mass/Vol] 15.7 g/dL Normal 14.0-18.0 [facility] Comment on above: Performed By: #### C BC #### [facility] [address] [place] [address] Dr. Viktoria Nuñez IG # 0.03 10e3/ul Normal 0.00-0.03 [facility] Comment on above: Performed By: #### C BC #### [facility] [address] [place] [address] Dr. Viktoria Nuñez IG % 0.4 % Normal 0.0-0.5 [facility] Comment on above: Performed By: #### C BC #### [facility] [address] [place] [address] Dr. Viktoria Nuñez LYMPH # 1.4 103/ul Normal 1.2-3.8 [facility] Comment on above: Performed By: #### C BC #### [facility] [address] [place] [address] Dr. Viktoria Nuñez Lymphocytes/100 WBC (Bld) 18.6 % Critically low 20.5-60.0 [facility] Comment on above: Performed By: #### C BC #### [facility] [address] [place] [address] Dr. Viktoria Nuñez MANUAL DIFF REQ NO Normal [facility] Comment on above: Performed By: #### C BC #### [facility] [address] [place] [address] Dr. Viktoria Nuñez MCH (RBC) [Entitic mass] 30.7 pg Normal 25.9-34.0 [facility] Comment on above: Performed By: #### C BC #### [facility] [address] [place] [address] Dr. Viktoria Nuñez MCHC (RBC) [Mass/Vol] 33.2 g/dL Normal 29.9-35.2 [facility] Comment on above: Performed By: #### C BC #### [facility] [address] [place] [address] Dr. Viktoria Nuñez MCV (RBC) [Entitic vol] 92.4 fL Normal 80.0-94.0 [facility] Comment on above: Performed By: #### C BC #### [facility] [address] [place] [address] Dr. Viktoria Nuñez MONO # 0.6 103/ul Normal 0.3-0.8 [facility] Comment on above: Performed By: #### C BC #### [facility] [address] [place] [address] Dr. Viktoria Nuñez Monocytes/100 WBC (Bld) 7.6 % Normal 1.7-12.0 [facility] Comment on above: Performed By: #### C BC #### [facility] [address] [place] [address] Dr. Viktoria Nuñez NEUT # 5.4 103/ul Normal 1.4-6.5 [facility] Comment on above: Performed By: #### C BC #### [facility] [address] [place] [address] Dr. Viktoria Nuñez Neutrophils/100 WBC (Bld) 73.1 % Normal 43.0-75.0 [facility] Comment on above: Performed By: #### C BC #### [facility] [address] [place] [address] Dr. Viktoria Nuñez Platelet mean volume (Bld) [Entitic vol] 10.1 fL Normal 9.5-13.5 [facility] Comment on above: Performed By: #### C BC #### [facility] [address] [place] [address] Dr. Viktoria Nuñez PLT 235 103/ul Normal 150-450 [facility] Comment on above: Performed By: #### C BC #### [facility] [address] [place] [address] Dr. Viktoria Nuñez RBC 5.12 106/ul Normal 4.70-6.10 [facility] Comment on above: Performed By: #### C BC #### [facility] [address] [place] [address] Dr. Viktoria Nuñez WBC 7.4 103/ul Normal 4.0-11.0 [facility] Comment on above: Performed By: #### C BC #### [facility] [address] [place] [address] Dr. Viktoria Nuñez PROF CHEM 8 (BAS METB)on Anion gap [Moles/Vol] 12.2 mmol/L Normal [facility] Comment on above: Performed By: #### B MP #### [facility] [address] [place] [address] Dr. Viktoria Nuñez Calcium [Mass/Vol] 9.6 mg/dL Normal 8.5-10.1 [facility] Comment on above: Performed By: #### B MP #### [facility] [address] [place] [address] Dr. Viktoria Nuñez Chloride [Moles/Vol] 107 mmol/L Normal 98-107 [facility] Comment on above: Performed By: #### B MP #### [facility] [address] [place] [address] Dr. Viktoria Nuñez CO2 [Moles/Vol] 27.9 mmol/L Normal 21.0-32.0 [facility] Comment on above: Performed By: #### B MP #### [facility] [address] [place] [address] Dr. Viktoria Nuñez Creatinine [Mass/Vol] 1.15 mg/dL Normal 0.70-1.30 [facility] Comment on above: Performed By: #### B MP #### [facility] [address] [place] [address] Dr. Viktoria Nuñez EGFR-AF ANGUILLAN >60 Normal >=60 [facility] Comment on above: Performed By: #### B MP #### [facility] [address] [address] [address] Viktoria Nuñez EGFR-NON AF ANGUILLAN >60 Normal >=60 [facility] Comment on above: Performed By: #### B MP #### [facility] [address] [place] [address] Dr. Viktoria Nuñez Glucose [Mass/Vol] 110 mg/dL Critically high 74-106 [facility] Comment on above: Performed By: #### B MP #### [facility] [address] [address] [address] Viktoria Nuñez Potassium [Moles/Vol] 4.1 mmol/L Normal 3.5-5.1 [facility] Comment on above: Performed By: #### B MP #### [facility] [address] [place] [address] Dr. Viktoria Nuñez Sodium [Moles/Vol] 143 mmol/L Normal 136-145 [facility] Comment on above: Performed By: #### B MP #### [facility] [address] [place] [address] Dr. Viktoria Nuñez Urea nitrogen [Mass/Vol] 20.0 mg/dL Critically high 7.0-18.0 [facility] Comment on above: Performed By: #### B MP #### [facility] [address] [place] [address] Dr. Viktoria Nuñez Urea nitrogen/Creatinine [Mass ratio] 17.4 mg/mg Normal [facility] Comment on above: Performed By: #### B MP #### [facility] [address] [place] [address] Dr. Viktoria Nuñez PROTIMEon 07-17-2022 INR Coag (PPP) [Relative time] 1.03 {INR} Normal [facility] Comment on above: Performed By: #### P T, PTT #### [facility] [address] [place] [address] Dr. Viktoria Nuñez INR GUIDELINES SEE BELOW Normal [facility] Comment on above: Result Comment: RODDY RED INR: 2.0 - 3.0 CONDITIONS NOT LISTED BELOW 2.5 - 3.5 FOR PROSTHETIC HEART VALVE REPLACEMENT 2.5 - 3.5 RECURRENT THROMBOSIS Performed By: #### P T, PTT #### [facility] [address] [place] [address] Dr. Viktoria Nuñez PT Coag (PPP) [Time] 10.9 s Normal 9.0-11.6 [facility] Comment on above: Performed By: #### P T, PTT #### [facility] [address] [place] [address] Dr. Viktoria Nuñez PTTon 07-17-2022 aPTT Coag (Bld) [Time] 28.0 s Normal 22.3-36.2 [facility] Comment on above: Performed By: #### P T, PTT #### [facility] [address] [address] [address] Viktoria Nuñez CREATININEon 06-27-2022 Creatinine [Mass/Vol] 0.96 mg/dL Normal 0.70-1.30 [facility] Comment on above: Performed By: #### C CHRISTOPHER #### [facility] [address] [place] [address] Dr. Viktoria Nuñez EGFR-AF ANGUILLAN >60 Normal >=60 [facility] Comment on above: Performed By: #### C CHRISTOPHER #### [facility] [address] [address] [address] Viktoria Nuñez EGFR-NON AF ANGUILLAN >60 Normal >=60 [facility] Comment on above: Performed By: #### C CHRISTOPHER #### [facility] [address] [place] [address] [address] Vik[address] Nuñez [address] ABD/PELV WO W [...] by: CLARIBEL COX Date: 2022-06-27 09:55 Normal [facility] XR shoulder RT min 2V*on XR shoulder RT min 2V* [facility] [place] [address] [place] [address] XRay Report Signed Patient: Darian Florentino MR#: [id number] 65 : 1955 Acct:[id number] Age/Sex: 67 / M ADM Date: 06/10/22 Loc: [place] Room: Type: [facility] Attending Dr: Mickie Cooper MD Copies to: [...] Cristi Dwyer M.D.06/10/2022 8:07 PM Dictation Location: [facility]- Transcribed By: [facility] 06/10/222006 Dictated By: Cristi Dwyer II, MD 06/10/222002 Signed By: 06/10/222006 Normal [facility] MR lumbar spine wo conon MR lumbar spine wo con [facility] [place] [address] [place] [address] MRI Report Signed Patient: Darian Florentino MR#: [id number] 65 : 1955 Acct:[id number] Age/Sex: 66 / M ADM Date: 03/21/22 [facility] Type: [facility] Attending Dr: Nahid Canchola DO Copies to: [...] Apple Lentz M.D.03/21/2022 3:41 PM Dictation Location: [place] [address] Transcribed By: [place] 03/21/22 1541 Dictated By: Apple Lentz MD 03/21/22 1531 Signed By: 03/21/22 1541 Normal [facility] XR knee LT 2Von 12-03-2021 XR knee LT 2V [facility] [place] [address] [place] [address] XRay Report Signed Patient: Darian Florentino MR#: [id number] 65 : 1955 Acct:[id number] Age/Sex: 66 / M ADM Date: 12/03/21 Loc: [place] Room: Type: [facility] Attending Dr: Nahid Canchola DO Copies to: Nahid Canchola DO Ordering Provider: Nahid Canchola DO Date of Service: 12/03/21 XR/XR knee LT 2V: Status post total left knee replacement LEFT KNEE - 2 views CLINICAL HISTORY: Follow-up TKA COMPARISON: 07/05/2021 FINDINGS: No hardware complication. XR/XR knee LT 2V IMPRESSION: NO HARDWARE COMPLICATION. NO ACUTE BONY PROCESS. Impression dictated by: Naun Haywood Jr. DTraci12/03/2021 3:33 PM Dictation Location: [facility] Transcribed By: PWS 12/03/21 1533 Dictated By: Naun Haywood Jr, 12/03/21 1533 Signed By: 12/03/21 1533 Normal [facility] XR knee LT 2V [facility] [employer] Other XR knee LT 2V [facility] [employer] Other XR knee LT 2V [address] [place] [address] [employer] Other XR knee LT 2V [place] [id number] [facility] [employer] Other XR knee LT 2V XRay Report [facility] [employer] Other XR knee LT 2V Signed [place] [employer] Other XR knee LT 2V Patient: Darian Florentino MR#: [id number] [place] [employer] Other XR knee LT 2V 65 [place] [employer] Other XR knee LT 2V : 1955 Acct:[id number] [place] [employer] Other XR knee LT 2V Age/Sex: 66 / M ADM Date: 12/03/21 [employer] Other XR knee LT 2V Loc: [place] Room: Type: [facility] [employer] Other XR knee LT 2V Attending Dr: Nahid Canchola DO [employer] Other XR knee LT 2V Copies to: Nahid Canchola DO [employer] Other XR knee LT 2V Ordering Provider: Nahid Canchola DO [employer] Other XR knee LT 2V Date of Service: 12/03/21 [employer] Other XR knee LT 2V XR/XR knee LT 2V: Status post total left knee replacement [employer] Other XR knee LT 2V LEFT KNEE - 2 views No rt [employer] Other XR knee LT 2V CLINICAL HISTORY: Follow-up TKA [place] [employer] Other XR knee LT 2V COMPARISON: 07/05/2021 [place] [employer] Other XR knee LT 2V FINDINGS: [employer] Other XR knee LT 2V No hardware complication. [employer] Other XR knee LT 2V XR/XR knee LT 2V [employer] Other XR knee LT 2V IMPRESSION: [employer] Other XR knee LT 2V NO HARDWARE COMPLICATION. NO ACUTE BONY PROCESS. [employer] Other XR knee LT 2V Impression dictated by: Naun Haywood Jr., D.O.12/03/2021 3:33 PM [employer] Other XR knee LT 2V Dictation Location: [facility] [employer] Other XR knee LT 2V Transcribed By: PWS 12/03/21 [facility] [employer] Other XR knee LT 2V Dictated By: Naun Haywood Jr, DO 12/03/21 [facility] [employer] Other XR knee LT 2V Signed By: [employer] Other XR knee LT 2V 12/03/21 [facility] [employer] Other XR pre/post mri xrayon 11-14 XR pre/post mri xray [facility] [place] [address] [place], [place] [id number] MRI Report Signed Patient: Darian Florentino MR#: [id number] 65 : 1955 Acct:[id number] Age/Sex: 66 / M ADM Date: 11/14/21 Loc: [facility] Room: Type: REG CLI Attending Dr: Nahid Canchola DO Copies to: Nahid Canchola DO Ordering Provider: Nahid Canchola DO Date of Service: 11/14/21 MR/MR femur LT wo con: Status post total left knee replacement ([id number]) XR/XR pre/post mri xray: Z96.652 MR femur [...] Cristi Dwyer M.D.11/14/2021 3:52 PM Dictation Location: [place] [address] Transcribed By: [facility] 11/14/21 8554 Dictated By: Cristi Dwyer II, MD 11/14/21 1545 Signed By: 11/14/21 7762 Normal [facility] XR lumbar spine AP/LAT/FLX/E XTon 10-26-2021 XR lumbar spine AP/LAT/FLX/EXT [facility] [place] [address] [place] [address] XRay Report Signed Patient: Darian Florentino MR#: [id number] 65 : 1955 Acct:[id number] Age/Sex: 66 / M ADM Date: 10/26/21 Loc: [place] Room: Type: [facility] Attending Dr: Nahid Canchola DO Copies to: [...] Haywood Jr., D.ODeedee10/26/2021 2:45 PM Dictation Location: [place] [address] Transcribed By: [facility] 10/26/21 1445 Dictated By: Naun Haywood Jr, DO 10/26/21 1443 Signed By: 10/26/21 1445 Normal [facility] C-Reactive Proteinon 022 C-Reactive Protein 1.4 mg/dL High 0.0-1.0 [facility] Comment on above: Result Comment: PERF ORMED BY: [place] [address] PATHOLOGIST MAIL PROCESSOR MARIELA OLVERA M.D. Performed By: #### C RP, CBC, ESR #### [address] Complete Blood Count Auto Di ffon 08-01-2021 Basophils (Bld) [#/Vol] 0.1 10*3/uL Normal 0.0-0.2 [facility] Comment on above: Performed By: #### C RP, CBC, ESR #### [facility] [address] [place] [address] [place] Basophils/100 WBC (Bld) 0.8 % Normal . [facility] Comment on above: Performed By: #### C RP, CBC, ESR #### [facility] [address] [place] [address] [place] Eosinophils (Bld) [#/Vol] 0.2 10*3/uL Normal 0.0-0.45 [facility] Comment on above: Performed By: #### C RP, CBC, ESR #### [facility] [address] Eosinophils/100 WBC (Bld) 1.9 % Normal . [facility] Comment on above: Performed By: #### C RP, CBC, ESR #### [facility] [address] Erythrocyte distribution width (RBC) [Ratio] 13.8 % Normal 12.0-14.8 [facility] Comment on above: Performed By: #### C RP, CBC, ESR #### [facility] [address] Hematocrit (Bld) [Volume fraction] 39.2 % Normal 38.8-50.0 [facility] Comment on above: Performed By: #### C RP, CBC, ESR #### [facility] [address] [place] [address] [place] Hemoglobin (Bld) [Mass/Vol] 13.3 g/dL Normal 13.0-17.0 [facility] Comment on above: Performed By: #### C RP, CBC, ESR #### [facility] [address] [place] [address] [place] Lymphocytes (Bld) [#/Vol] 1.9 10*3/uL Normal 1.00-4.8 [facility] Comment on above: Performed By: #### C RP, CBC, ESR #### [facility] [address] [place] [address] [place] Lymphocytes/100 WBC (Bld) 22.3 % Normal . [facility] Comment on above: Performed By: #### C RP, CBC, ESR #### [facility] [address] MCH (RBC) [Entitic mass] 31.3 pg Normal 27.5-35.2 [facility] Comment on above: Performed By: #### C RP, CBC, ESR #### [facility] [address] MCV (RBC) [Entitic vol] 92.2 fL Normal 83.5-101 [facility] Comment on above: Performed By: #### C RP, CBC, ESR #### [facility] [address] Mean Corpuscular HGB Conc 33.9 g/dL Normal 32.5-35.6 [facility] Comment on above: Performed By: #### C RP, CBC, ESR #### [address] Monocytes (Bld) [#/Vol] 0.7 10*3/uL Normal 0.0-0.8 [facility] Comment on above: Performed By: #### C RP, CBC, ESR #### [address] Monocytes/100 WBC (Bld) 8.8 % Normal . [facility] Comment on above: Performed By: #### C RP, CBC, ESR #### [facility] [address] Neutrophils (Bld) [#/Vol] 5.5 10*3/uL Normal 1.8-7.7 [facility] Comment on above: Performed By: #### C RP, CBC, ESR #### [address] Neutrophils/100 WBC (Bld) 66.2 % Normal . [facility] Comment on above: Performed By: #### C RP, CBC, ESR #### [address] Nucleated RBC/100 WBC (Bld) [Ratio] 0.0 % Normal 0-0.5 [facility] Comment on above: Performed By: #### C RP, CBC, ESR #### [address] Platelet mean volume (Bld) [Entitic vol] 8.5 fL Normal 6.6-10.1 [facility] Comment on above: Performed By: #### C RP, CBC, ESR #### [address] Platelets (Bld) [#/Vol] 380 10*3/uL Normal 150-450 [facility] Comment on above: Performed By: #### C RP, CBC, ESR #### [address] RBC (Bld) [#/Vol] 4.25 10*6/uL Normal 3.90-5.60 [facility] Comment on above: Performed By: #### C RP, CBC, ESR #### [address] WBC (Bld) [#/Vol] 8.3 10*3/uL Normal 4.5-11.0 [facility] Comment on above: Performed By: #### C RP, CBC, ESR #### [address] Erythrocyte Sedimentation Ra susan 08-01-2021 ESR (Bld) [Velocity] 39 mm/h High 0-19 [facility] Comment on above: Result Comment: PERF ORMED BY: [address] [place] [address] PATHOLOGIST MAIL PROCESSOR MARIELA OLVERA M.D. Performed By: #### C RP, CBC, ESR #### [address] [place] 07-05-2021 L Specimen: Received: 07/05/21 Status: VALERY High Num: [id number] Spec Type: Surgical Subm Dr: Nahid Canchola DO Tissues: A Joint/Knee (L KNEE) Procedures: HE Stain, Gross/Micro L4, Decal Patient Age/Sex Location Account Attending Physician Darian Florentino 66/M [place] [id number] Nahid Canchola DO SPEC NUM: RECD: 07/05/21 STATUS: VALERY HIGH NUM: [id number] MELISSA: 07/05/21- DR: Nahid Canchola DO ENTERED: 07/05/21 CAR [...] reveals shine, focally sclerotic cut surfaces. A junior sales representative section of bone is submitted following formalin fixation and decalcification . (SM/JS) Microscopic Description One glass slide with H E stained material has been examined. The microscopic findings support the above pathologic diagnosis. [id number], [id number] Specimen: Received: 07/05/21 Status: VALERY High Num: [id number] Spec Type: Surgical Subm Dr: Nahid Canchola DO Tissues: A Joint/Knee (L KNEE) Procedures: HE Stain, Gross/Micro L4, Decal Patient: Darian Florentino [id number] (Continued) Signed (signature on file) Mariela Olvera MD 07/10/21 1843 Normal [facility] XR knee LT 2Von 07-05-2021 XR knee LT 2V [facility] [place] [address] XRay Report Signed Patient: Darian Florentino MR#: [id number] 65 : 1955 Acct:[id number] Age/Sex: 66 / M ADM Date: 07/05/21 Loc: [place] Room: Type: [facility] Attending Dr: Nahid Canchola DO [...] Apple Lentz M.D.07/05/2021 1:35 PM Dictation Location: [place] [address] Transcribed By: [facility] 07/05/21 3747 Dictated By: Apple Lentz MD 07/05/21 1383 Signed By: 07/05/21 1335 Normal [facility] COVID-19 FRMCon 07-03-2021 SARS-CoV-2 (COVID-19) RNA VIC+probe Ql (Unsp spec) Negative Normal Negative [facility] Comment on above: Order Comment: 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 This test has not been FDA [...] is terminated or revoked sooner. PERFORMED BY: [place] [address] PATHOLOGIST MAIL PROCESSOR MARIELA OLVERA M.D. Performed By: #### C OVID 19 [facility] #### [place] [id number] [facility] Complete Blood Count Auto Di ffon 07-03-2021 Basophils (Bld) [#/Vol] 0.0 10*3/uL Normal 0.0-0.2 [facility] Comment on above: Result Comment: PERF ORMED BY: [place] [address] PATHOLOGIST MAIL PROCESSOR MARIELA OLVERA M.D. Performed By: #### C MP, CBC #### [place] [id number] [place] Basophils/100 WBC (Bld) 0.3 % Normal . [facility] Comment on above: Performed By: #### C MP, CBC #### [facility] [address] [place] [address] [place] Eosinophils (Bld) [#/Vol] 0.2 10*3/uL Normal 0.0-0.45 [facility] Comment on above: Performed By: #### C MP, CBC #### [facility] [address] [place] [address] [place] Eosinophils/100 WBC (Bld) 2.5 % Normal . [facility] Comment on above: Performed By: #### C MP, CBC #### [facility] [address] Erythrocyte distribution width (RBC) [Ratio] 13.5 % Normal 12.0-14.8 [facility] Comment on above: Performed By: #### C MP, CBC #### [facility] [address] Hematocrit (Bld) [Volume fraction] 42.9 % Normal 38.8-50.0 [facility] Comment on above: Performed By: #### C MP, CBC #### [facility] [address] [place] [address] [place] Hemoglobin (Bld) [Mass/Vol] 14.6 g/dL Normal 13.0-17.0 [facility] Comment on above: Performed By: #### C MP, CBC #### [facility] [address] [place] [address] [place] Lymphocytes (Bld) [#/Vol] 1.6 10*3/uL Normal 1.00-4.8 [facility] Comment on above: Performed By: #### C MP, CBC #### [facility] [address] [place] [id number] [place] Lymphocytes/100 WBC (Bld) 23.6 % Normal . [facility] Comment on above: Performed By: #### C MP, CBC #### [facility] [address] [place] [address] [place] MCH (RBC) [Entitic mass] 32.1 pg Normal 27.5-35.2 [facility] Comment on above: Performed By: #### C MP, CBC #### [facility] [address] MCV (RBC) [Entitic vol] 94.3 fL Normal 83.5-101 [facility] Comment on above: Performed By: #### C MP, CBC #### [facility] [address] Mean Corpuscular HGB Conc 34.0 g/dL Normal 32.5-35.6 [facility] Comment on above: Performed By: #### C MP, CBC #### [facility] [address] [place] [address] [place] Monocytes (Bld) [#/Vol] 0.5 10*3/uL Normal 0.0-0.8 [facility] Comment on above: Performed By: #### C MP, CBC #### [facility] [address] Monocytes/100 WBC (Bld) 7.8 % Normal . [facility] Comment on above: Performed By: #### C MP, CBC #### [facility] [address] [place] [address] [place] Neutrophils (Bld) [#/Vol] 4.3 10*3/uL Normal 1.8-7.7 [facility] Comment on above: Performed By: #### C MP, CBC #### [facility] [address] [place] [address] [place] Neutrophils/100 WBC (Bld) 65.8 % Normal . [facility] Comment on above: Performed By: #### C MP, CBC #### [facility] [address] [place] [address] [place] Nucleated RBC/100 WBC (Bld) [Ratio] 0.1 % Normal 0-0.5 [facility] Comment on above: Performed By: #### C MP, CBC #### [facility] [address] Platelet mean volume (Bld) [Entitic vol] 9.1 fL Normal 6.6-10.1 [facility] Comment on above: Performed By: #### C MP, CBC #### [address] Platelets (Bld) [#/Vol] 237 10*3/uL Normal 150-450 [facility] Comment on above: Performed By: #### C MP, CBC #### [address] RBC (Bld) [#/Vol] 4.55 10*6/uL Normal 3.90-5.60 [facility] Comment on above: Performed By: #### C MP, CBC #### [address] WBC (Bld) [#/Vol] 6.6 10*3/uL Normal 4.5-11.0 [facility] Comment on above: Performed By: #### C MP, CBC #### [address] Comprehensive Metabolic Pane renny 07-03-2021 Albumin [Mass/Vol] 3.7 g/dL Normal 3.2-5.5 [facility] Comment on above: Performed By: #### C MP, CBC #### [address] Albumin/Globulin [Mass ratio] 1.4 {ratio} Normal [facility] Comment on above: Performed By: #### C MP, CBC #### [address] ALP [Catalytic activity/Vol] 54 U/L Normal 32-92 [facility] Comment on above: Result Comment: PERF ORMED BY: [place] [address] PATHOLOGIST MAIL PROCESSOR MARIELA OLVERA M.D. Performed By: #### C MP, CBC #### [address] ALT [Catalytic activity/Vol] 20 U/L Normal 10-60 [facility] Comment on above: Performed By: #### C MP, CBC #### [address] AST [Catalytic activity/Vol] 21 U/L Normal 10-42 [facility] Comment on above: Performed By: #### C MP, CBC #### [address] Bilirubin [Mass/Vol] 0.6 mg/dL Normal 0.3-1.2 [facility] Comment on above: Performed By: #### C MP, CBC #### [address] Calcium [Mass/Vol] 9.6 mg/dL Normal 8.2-10.2 [facility] Comment on above: Performed By: #### C MP, CBC #### [address] Chloride [Moles/Vol] 105 mmol/L Normal 95-114 [facility] Comment on above: Performed By: #### C MP, CBC #### [address] CO2 [Moles/Vol] 26.1 mmol/L Normal 22.0-30.0 [facility] Comment on above: Performed By: #### C MP, CBC #### [address] Creatinine [Mass/Vol] 1.10 mg/dL Normal 0.64-1.27 [facility] Comment on above: Performed By: #### C MP, CBC #### [address] Estimated GFR ( Vani > 60 Normal [facility] Comment on above: Result Comment: GFR estimated reference range: According to KDOQI guidelines, <60 ml/min/1.73m2 is sufficient to diagnose a patient with chronic kidney disease. Performed By: #### C MP, CBC #### [address] Estimated GFR (Non- Am > 60 Normal [facility] Comment on above: Performed By: #### C MP, CBC #### [place] [id number] [place] Globulin (S) [Mass/Vol] 2.7 g/dL Normal [facility] Comment on above: Performed By: #### C MP, CBC #### [facility] [address] Glucose [Mass/Vol] 102 mg/dL High 70-100 [facility] Comment on above: Result Comment: [facility] Glucose Reference Range is dependent on time and content of last meal. Glucose of more than 200 mg/dL in a nonstressed, ambulatory subject supports the diagnosis of Diabetes Mellitus. ADA recommended reference range Performed By: #### C MP, CBC #### [address] Potassium [Moles/Vol] 4.5 mmol/L Normal 3.5-5.1 [facility] Comment on above: Performed By: #### C MP, CBC #### [address] Protein [Mass/Vol] 6.4 g/dL Normal 6.1-7.9 [facility] Comment on above: Performed By: #### C MP, CBC #### [address] Sodium [Moles/Vol] 140 mmol/L Normal 136-146 [facility] Comment on above: Performed By: #### C MP, CBC #### [address] Urea nitrogen [Mass/Vol] 17 mg/dL Normal 9-23 [facility] Comment on above: Performed By: #### C MP, CBC #### [address] Vital Signs Date Time Vital Sign Value Performing Clinician Facility 08-17-2024 12:54-0400 Body height 182.88 cm Catracho Willis MD Work Phone: [facility] 08-17-2024 12:54-0400 Body mass index (BMI) [Ratio] 25.1 kg/m2 Catracho Willis MD Work Phone: [facility] 08-17-2024 12:54-0400 Body weight 84 kg Catracho Willis MD Work Phone: [facility] 07-01-2024 14:58-0400 Body height 182.9 cm Dee Sandra [employer] Work Phone: [facility] 07-01-2024 14:58-0400 Body mass index (BMI) [Ratio] 25.77 kg/m2 Dee Bushraz [employer] Work Phone: [facility] [facility] 07-01-2024 14:58-0400 Body temperature 97.81 [degF] Dee Sandra [employer] Work Phone: [facility] 07-01-2024 14:58-0400 Body weight 86.18 kg Dee Sandra [employer] Work Phone: [facility] 07-01-2024 14:58-0400 Diastolic blood pressure 80 mm[Hg] Dee Bushraz [employer] Work Phone: [facility] 07-01-2024 14:58-0400 Heart rate 61 /min Dee Caithholz [employer] Work Phone: [facility] 07-01-2024 14:58-0400 Respiratory rate 18 /min Dee Bushraz [employer] Work Phone: [facility] 07-01-2024 14:58-0400 SaO2% (BldA) [Mass fraction] 93 % Dee Bushraz [employer] Work Phone: [facility] 07-01-2024 14:58-0400 Systolic blood pressure 124 mm[Hg] Dee Caithholz [employer] Work Phone: [facility] 06-03-2024 13:41-0400 Body height 182.88 cm [facility] 06-03-2024 13:41-0400 Body mass index (BMI) [Ratio] 25.2 kg/m2 [facility] 06-03-2024 13:41-0400 Body temperature 98 [degF] [facility] 06-03-2024 13:41-0400 Body weight 84.36 kg [facility] 06-03-2024 13:41-0400 Diastolic blood pressure 78 mm[Hg] [facility] 06-03-2024 13:41-0400 Heart rate 68 /min [facility] 06-03-2024 13:41-0400 Respiratory rate 18 /min [facility] 06-03-2024 13:41-0400 SaO2% (BldA) [Mass fraction] 97 % [facility] 06-03-2024 13:41-0400 Systolic blood pressure 134 mm[Hg] [facility] 04-20-2024 14:10-0500 Blood Pressure Location Tonia DAY [facility] 04-20-2024 14:10-0500 Diastolic blood pressure 78 mm[Hg] Tonia DAY [facility] 04-20-2024 14:10-0500 Heart rate 80 /min Tonia DAY [facility] 04-20-2024 14:10-0500 Respiratory rate 16 /min Tonia DAY [facility] 04-20-2024 14:10-0500 Systolic blood pressure 150 mm[Hg] Tonia DAY [facility] 01-06-2024 13:56-0400 Blood Pressure Location Tonia DAY [facility] 01-06-2024 13:56-0400 Diastolic blood pressure 93 mm[Hg] Tonia DAY [facility] 01-06-2024 13:56-0400 Heart rate 72 /min Tonia DAY [facility] 01-06-2024 13:56-0400 Respiratory rate 16 /min Tonia DAY [facility] 01-06-2024 13:56-0400 Systolic blood pressure 175 mm[Hg] Tonia DAY [facility] 12-16-2023 11:13-0400 Body height 182.9 cm Catracho Willis MD Work Phone: [facility] 12-16-2023 11:13-0400 Body mass index (BMI) [Ratio] 25.23 kg/m2 Catracho Willis MD Work Phone: [facility] 12-16-2023 11:13-0400 Body temperature 97.81 [degF] Catracho Willis MD Work Phone: [facility] 12-16-2023 11:13-0400 Body weight 84.37 kg Catracho Willis MD Work Phone: [facility] 12-16-2023 11:13-0400 Diastolic blood pressure 60 mm[Hg] Catracho Willis MD Work Phone: [facility] 12-16-2023 11:13-0400 Heart rate 61 /min Catracho Willis MD Work Phone: [facility] 12-16-2023 11:13-0400 Respiratory rate 18 /min aCtracho Willis MD Work Phone: [facility] 12-16-2023 11:13-0400 SaO2% (BldA) [Mass fraction] 97 % Catracho Willis MD Work Phone: [facility] 12-16-2023 11:13-0400 Systolic blood pressure 110 mm[Hg] Catracho Willis MD Work Phone: [facility] 11-20-2023 14:38-0400 Diastolic blood pressure 70 mm[Hg] YAHAIRA TADEO [facility] 11-20-2023 14:38-0400 Heart rate 73 /min YAHAIRA ETHAN [facility] 11-20-2023 14:38-0400 Respiratory rate 16 /min YAHAIRA ETHAN [facility] 11-20-2023 14:38-0400 Systolic blood pressure 112 mm[Hg] YAHAIRA ETHAN [facility] 11-06-2023 14:34-0400 Blood Pressure Location YAHAIRA ETHAN [facility] 11-06-2023 14:34-0400 Body temperature 98.6 [degF] YAHAIRA ETHAN [facility] 11-06-2023 14:34-0400 Diastolic blood pressure 87 mm[Hg] YAHAIRA ETHAN [facility] 11-06-2023 14:34-0400 Heart rate 72 /min YAHAIRA ETHAN [facility] 11-06-2023 14:34-0400 Respiratory rate 16 /min YAHAIRA ETHAN [facility] 11-06-2023 14:34-0400 Systolic blood pressure 135 mm[Hg] YAHAIRA ETHAN [facility] 09-30-2023 13:51-0400 Blood Pressure Location Tonia DAY [facility] 09-30-2023 13:51-0400 Diastolic blood pressure 74 mm[Hg] Tonia DAY [facility] 09-30-2023 13:51-0400 Heart rate 62 /min Tonia DAY [facility] 09-30-2023 13:51-0400 Systolic blood pressure 127 mm[Hg] Tonia DAY [facility] 06-24-2023 13:09-0400 Body temperature 98.6 [degF] Tonia DAY [facility] 06-24-2023 13:09-0400 Diastolic blood pressure 77 mm[Hg] Tonia DAY [facility] 06-24-2023 13:09-0400 Heart rate 69 /min Tonia DAY [facility] 06-24-2023 13:09-0400 Respiratory rate 16 /min Tonia DAY [facility] 06-24-2023 13:09-0400 Systolic blood pressure 132 mm[Hg] Tonia DAY [facility] 05-13-2023 09:10-0500 Blood Pressure Location YAHAIRA ETHAN [facility] 05-13-2023 09:10-0500 Diastolic blood pressure 74 mm[Hg] YAHAIRA ETHAN [facility] 05-13-2023 09:10-0500 Heart rate 68 /min YAHAIRA ETHAN [facility] 05-13-2023 09:10-0500 Respiratory rate 16 /min YAHAIRA TADEO [facility] 05-13-2023 09:10-0500 Systolic blood pressure 128 mm[Hg] YAHAIRA TADEO [facility] 05-05-2023 08:39-0500 Blood Pressure Location Tonia DAY [facility] 05-05-2023 08:39-0500 Diastolic blood pressure 71 mm[Hg] Tonia DAY [facility] 05-05-2023 08:39-0500 Heart rate 67 /min Tonia DAY [facility] 05-05-2023 08:39-0500 Respiratory rate 16 /min Tonia DAY [facility] 05-05-2023 08:39-0500 Systolic blood pressure 129 mm[Hg] Tonia DAY [facility] 03-28-2023 18:00-0500 Body height 182.88 cm Margaret Hardy Other [employer] Other 03-28-2023 18:00-0500 Body mass index (BMI) [Ratio] 25.71 kg/m2 Margaret Hardy Other [employer] Other 03-28-2023 18:00-0500 Body temperature 99.6 [degF] Margaret Hardy Other [employer] Other 03-28-2023 18:00-0500 Body weight 86 kg Margaret Hardy Other [employer] Other 03-28-2023 18:00-0500 Diastolic blood pressure 72 mm[Hg] Margarte Hardy Other [employer] Other 03-28-2023 18:00-0500 Respiratory rate 18 /min Margaret Hardy Other [employer] Other 03-28-2023 18:00-0500 SaO2% (BldA) [Mass fraction] 99 % Margaret Hardy Other [employer] Other 03-28-2023 18:00-0500 Systolic blood pressure 133 mm[Hg] Margaret Friasmond Other [employer] Other 03-03-2023 09:12-0500 Blood Pressure Location Tonia DAY [facility] 03-03-2023 09:12-0500 Diastolic blood pressure 79 mm[Hg] Tonia DAY [facility] 03-03-2023 09:12-0500 Heart rate 80 /min Tonia DAY [facility] 03-03-2023 09:12-0500 Respiratory rate 16 /min Tonia DAY [facility] 03-03-2023 09:12-0500 Systolic blood pressure 126 mm[Hg] Tonia DAY [facility] 01-17-2023 10:25-0400 Blood Pressure Location Toniapete DAY [facility] 01-17-2023 10:25-0400 Diastolic blood pressure 66 mm[Hg] Tonia DAY [facility] 01-17-2023 10:25-0400 Heart rate 62 /min Tonia DAY [facility] 01-17-2023 10:25-0400 Respiratory rate 16 /min Tonia DAY [facility] 01-17-2023 10:25-0400 Systolic blood pressure 121 mm[Hg] Tonia DAY [facility] 12-10-2022 13:19-0400 Blood Pressure Location Tonia DAY [facility] 12-10-2022 13:19-0400 Diastolic blood pressure 88 mm[Hg] Tonia DAY [facility] 12-10-2022 13:19-0400 Heart rate 60 /min Tonia DAY [facility] 12-10-2022 13:19-0400 Systolic blood pressure 137 mm[Hg] Tonia DAY [facility] 10-22-2022 09:07-0400 Blood Pressure Location YAHAIRA TADEO [facility] 10-22-2022 09:07-0400 Diastolic blood pressure 73 mm[Hg] YAHAIRA ETHAN [facility] 10-22-2022 09:07-0400 Heart rate 60 /min YAHAIRA ETHAN [facility] 10-22-2022 09:07-0400 Systolic blood pressure 118 mm[Hg] YAHAIRA ETHAN [facility] 10-08-2022 09:01-0400 Blood Pressure Location YAHAIRA ETHAN [facility] 10-08-2022 09:01-0400 Diastolic blood pressure 80 mm[Hg] YAHAIRA ETHAN [facility] 10-08-2022 09:01-0400 Heart rate 80 /min YAHAIRA ETHAN [facility] 10-08-2022 09:01-0400 Respiratory rate 16 /min YAHAIRA ETHAN [facility] 10-08-2022 09:01-0400 Systolic blood pressure 130 mm[Hg] YAHAIRA ETHAN [facility] 09-17-2022 09:11-0400 Blood Pressure Location YAHAIRA ETHAN [facility] 09-17-2022 09:11-0400 Diastolic blood pressure 74 mm[Hg] YAHAIRA ETHAN [facility] 09-17-2022 09:11-0400 Heart rate 80 /min YAHAIRA ETHAN [facility] 09-17-2022 09:11-0400 Respiratory rate 16 /min YAHAIRA ETHAN [facility] 09-17-2022 09:11-0400 Systolic blood pressure 128 mm[Hg] YAHAIRA ETHAN [facility] 09-10-2022 08:55-0400 Blood Pressure Location YAHAIRA ETHAN [facility] 09-10-2022 08:55-0400 Diastolic blood pressure 70 mm[Hg] YAHAIRA ETHAN [facility] 09-10-2022 08:55-0400 Heart rate 66 /min YAHAIRA ETHAN [facility] 09-10-2022 08:55-0400 Systolic blood pressure 127 mm[Hg] YAHAIRA ETHAN [facility] 09-03-2022 09:00-0400 Blood Pressure Location YAHAIRA ETHAN [facility] 09-03-2022 09:00-0400 Diastolic blood pressure 74 mm[Hg] YAHAIRA ETHAN [facility] 09-03-2022 09:00-0400 Heart rate 68 /min YAHAIRA ETHAN [facility] 09-03-2022 09:00-0400 Respiratory rate 16 /min YAHAIRA ETHAN [facility] 09-03-2022 09:00-0400 Systolic blood pressure 128 mm[Hg] YAHAIRA ETHAN [facility] 08-27-2022 09:03-0400 Blood Pressure Location YAHAIRA ETHAN [facility] 08-27-2022 09:03-0400 Diastolic blood pressure 76 mm[Hg] YAHAIRA ETHAN [facility] 08-27-2022 09:03-0400 Heart rate 80 /min YAHAIRA TADEO [facility] 08-27-2022 09:03-0400 Respiratory rate 16 /min YAHAIRA TADEO [facility] 08-27-2022 09:03-0400 Systolic blood pressure 132 mm[Hg] YAHAIRA TADEO [facility] 07-26-2022 08:44-0400 Blood Pressure Location Tonia DAY [facility] 07-26-2022 08:44-0400 Diastolic blood pressure 90 mm[Hg] Tonia DAY [facility] 07-26-2022 08:44-0400 Heart rate 68 /min Tonia DAY [facility] 07-26-2022 08:44-0400 Respiratory rate 16 /min Tonia DAY [facility] 07-26-2022 08:44-0400 Systolic blood pressure 128 mm[Hg] Tonia DAY [facility] 03-29-2022 10:45-0500 Body height 182.88 cm Nahid Canchola Other [employer] Other 03-29-2022 10:45-0500 Body mass index (BMI) [Ratio] 25.09 kg/m2 Nahid Canchola Other [employer] Other 03-29-2022 10:45-0500 Body weight 83.92 kg Nahid Canchola Other [employer] Other 01-07-2022 12:22-0400 Blood Pressure Location Tonia DAY [facility] 01-07-2022 12:22-0400 Diastolic blood pressure 71 mm[Hg] Tonia DAY [facility] 01-07-2022 12:22-0400 Heart rate 65 /min Tonia DAY [facility] 01-07-2022 12:22-0400 Respiratory rate 16 /min Tonia DAY [facility] 01-07-2022 12:22-0400 Systolic blood pressure 124 mm[Hg] Tonia DAY [facility] 09-28-2021 11:00-0400 Body height 182.88 cm Nahid Trish Other [facility] [employer] Other 09-28-2021 11:00-0400 Body mass index (BMI) [Ratio] 25.49 kg/m2 Nahid Trish Other [employer] Other 09-28-2021 11:00-0400 Body weight 85.28 kg Nahid Trish Other [employer] Other 08-01-2021 14:00-0400 Body height 182.88 cm Nahid Trish Other [employer] Other 08-01-2021 14:00-0400 Body mass index (BMI) [Ratio] 25.49 kg/m2 Nahid Trish Other [employer] Other 08-01-2021 14:00-0400 Body weight 85.28 kg Nahid Trish Other [employer] Other 07-18-2021 12:00-0400 Body height 182.88 cm Nahid Trish Other [employer] Other 07-18-2021 12:00-0400 Body mass index (BMI) [Ratio] 26.04 kg/m2 Nahid Trish Other [employer] Other 07-18-2021 12:00-0400 Body weight 87.09 kg Nahid Trish Other [employer] Other 04-23-2021 15:45-0500 Body height 182.88 cm Nahid Trish Other [employer] Other 04-23-2021 15:45-0500 Body mass index (BMI) [Ratio] 26.04 kg/m2 Nahid Trish Other [employer] Other 04-23-2021 15:45-0500 Body weight 87.09 kg Nahid Trish Other [employer] Other 03-12-2021 09:00-0500 Body height 182.88 cm Nahid Trish Other [employer] Other 03-12-2021 09:00-0500 Body mass index (BMI) [Ratio] 26.12 kg/m2 Nahid Trish Other [employer] Other 03-12-2021 09:00-0500 Body weight 87.36 kg Nahid Trish Other [employer] Other 02-12-2021 14:00-0500 Body height 182.88 cm Nahid Trish Other [employer] Other 02-12-2021 14:00-0500 Body mass index (BMI) [Ratio] 26.04 kg/m2 Nahid Canchola Other [employer] Other 02-12-2021 14:00-0500 Body weight 87.09 kg Nahid Canchola Other [employer] Other 01-10-2021 12:00-0400 Body height 182.88 cm Nahid Canchola Other [employer] Other 01-10-2021 12:00-0400 Body mass index (BMI) [Ratio] 26.15 kg/m2 Nahid Canchola Other [employer] Other 01-10-2021 12:00-0400 Body weight 87.45 kg Nahid Canchola Other [employer] Other Encounters Encounter Date Encounter Type Care Provider Facility Start: 08-24-2024 ambulatory Tonia Marcial ty:[facility] Start: 08-17-2024 End: 08-17-2024 ambulatory Catracho Willis MD Work Phone: [facility] Work Phone: Start: 08-17-2024 End: 08-17-2024 Patient encounter procedure Catracho Willis MD Work Phone: [facility] Work Phone: Start: 08-17-2024 Patient encounter procedure Catracho Willis MD Work Phone: [facility] Start: 08-10-2024 End: 08-10-2024 Orders Only Dee Flores [employer] Work Phone: [facility] Comment on above: History of abdominal hernia (Primary Dx); Generalized abdominal pain Start: 07-29-2024 End: 07-29-2024 ambulatory YAHAIRA TADEO Facility:[facility] Start: 07-22-2024 End: 07-22-2024 ambulatory YAHAIRA TADEO Facility:[facility] Start: 07-15-2024 End: 07-15-2024 ambulatory YAHAIRA TADEO Facility:[facility] Start: 07-01-2024 End: 07-01-2024 Office outpatient visit 15 minutes Dee Flores [employer] Work Phone: [facility] Comment on above: History of abdominal hernia (Primary Dx); Cigarette smoker; Malignant neoplasm of urinary bladder, unspecified site (CMS/HCC) Start: 07-01-2024 End: 07-01-2024 ambulatory DEE FLORES Not Available Start: 07-01-2024 End: 07-01-2024 Bamboo flowsheet Dee Flores [employer] Work Phone: [facility] Start: 07-01-2024 End: 07-01-2024 Bamboo flowsheet Dee Sandra [employer] Work Phone: [facility] Start: 06-24-2024 End: 06-24-2024 Clinisync Result Encounter Catracho Willis MD Work Phone: [facility] Unsolicited Start: 06-24-2024 End: 06-24-2024 Clinisync Result Encounter Catracho Willis MD Work Phone: [facility] Unsolicited Start: 06-10-2024 End: 06-10-2024 ambulatory CATRACHO WILLIS Not Available Start: 06-03-2024 End: 06-03-[address] [facility] Work Phone: Start: 06-03-2024 End: 06-03-2024 Patient encounter procedure [facility] [place] Work Phone: Start: 05-31-2024 End: 05-31-2024 Clinisync Result Encounter Generic External Data Provider [facility] Unsolicited Start: 05-31-2024 End: 05-31-2024 Clinisync Result Encounter Generic External Data Provider [facility] External [facility] Unsolicited Start: 04-20-2024 End: 04-20-2024 Lab Drop off Tonia DAY [facility] Start: 04-20-2024 End: 04-20-2024 ambulatory Tonia ADY Facility:[facility] Start: 04-20-2024 End: 04-20-2024 Patient encounter procedure Tonia DAY [facility] [place] Start: 01-06-2024 End: 01-06-2024 ambulatory Tonia DAY Facility:[facility] Start: 01-06-2024 End: 01-06-2024 Lab Drop off Tonia DAY [facility] Start: 01-06-2024 End: 01-06-2024 ambulatory Tonia DAY Facility:[facility] Start: 01-06-2024 End: 01-06-2024 Patient encounter procedure Tonai DAY [facility] Start: 12-19-2023 End: 12-19-2023 Clinisync Result Encounter [...] encounter procedure Catracho Willis MD Work Phone: [facility] Work Phone: Start: 12-16-2023 End: 12-16-2023 Postop follow up visit related to original px Catracho Willis MD Work Phone: [facility] Comment on above: Medicare annual well ness visit, subsequent (Primary Dx); Prediabetes; Screening PSA (prostate specific antigen); Encounter for long-term (current) use of medications; Dyslipidemia (CMS/HCC); Malignant neoplasm of urinary bladder, unspecified site (CMS/HCC) Start: 11-20-2023 End: 11-20-2023 ambulatory YAHAIRA Lexx NAILSRY Facility:[facility] Start: 11-20-2023 End: 11-20-2023 Patient encounter procedure YAHAIRA NAILSRY [facility] Start: 11-13-2023 End: 11-13-2023 ambulatory YAHAIRA E ETHAN Facility:[facility] Start: 11-13-2023 End: 11-13-2023 Patient encounter procedure YAHAIRA Lexx ETHAN [facility] Start: 11-06-2023 End: 11-06-2023 ambulatory [facility] E [facility]AN [facility] Start: 11-06-2023 End: 11-06-2023 Patient encounter procedure YAHAIRA E ETHAN [facility] Start: 09-30-2023 End: 09-30-2023 Lab Drop off Tonia DAY [facility] Start: 09-30-2023 End: 09-30-2023 ambulatory Toniapete DAY Facility:[facility] Start: 09-30-2023 End: 09-30-2023 Patient encounter procedure Tonia DAY [facility] Start: 08-20-2023 End: 08-20-2023 ambulatory FLAQUITA SEE Not Available Start: 06-24-2023 End: 06-24-2023 Lab Drop off Tonia DAY [facility] Start: 06-24-2023 End: 06-24-2023 ambulatory Tonia R DAY Facility:[facility] Start: 06-24-2023 End: 06-24-2023 Patient encounter procedure Tonia DAY [facility] Start: 05-13-2023 End: 05-13-2023 ambulatory YAHAIRA TADEO Facility:[facility] [place] Start: 05-13-2023 End: 05-13-2023 Patient encounter procedure YAHAIRA TADEO [facility] Start: 05-05-2023 End: 05-05-2023 ambulatory Toniapete DAY Facility:[facility] Start: 05-05-2023 End: 05-05-2023 Patient encounter procedure Tonia DAY [facility] Start: 04-28-2023 End: 04-28-2023 ambulatory Tonia Christina DAY Facility:[facility] Start: 03-28-2023 End: 03-28-2023 ambulatory Margaret Hardy Other [employer] Other Start: 03-28-2023 Office outpatient vi sit 15 minutes Margaret Hardy [facility] [place] Start: 03-10-2023 End: 03-10-2023 Patient encounter procedure Tonia DAY [facility] [place] Start: 03-03-2023 End: 03-03-2023 Patient encounter procedure Tonia DAY [facility] [place] Start: 02-26-2023 End: 02-26-2023 Patient encounter procedure Tonia Vasquez DAY [facility] [place] Start: 01-17-2023 End: 01-17-2023 Patient encounter procedure Tonia Vasquez DAY [facility] [place] Start: 12-10-2022 End: 12-10-2022 Patient encounter procedure Tonia DAY [facility] [place] Start: 12-09-2022 End: 12-09-2022 Lab Drop off Tonia DAY [facility] Start: 12-09-2022 End: 12-09-2022 Patient encounter procedure [facility] R [facility] [place] Start: 10-22-2022 End: 10-22-2022 Patient encounter procedure [facility] [place] Start: 10-08-2022 End: 10-08-2022 Patient encounter procedure YAHAIRA TADEO [facility] Start: 09-17-2022 End: 09-17-2022 Patient encounter procedure YAHAIRA TADEO [facility] Start: 09-10-2022 End: 09-10-2022 Patient encounter procedure YAHAIRA TADEO [facility] Start: 09-03-2022 End: 09-03-2022 Patient encounter procedure YAHAIRA TADEO [facility] Start: 08-27-2022 End: 08-27-2022 Lab Drop off YAHAIRA TADEO [facility] Start: 08-27-2022 End: 08-27-2022 Patient encounter procedure YAHAIRA TADEO [facility] Start: 07-26-2022 End: 07-26-2022 Patient encounter procedure Tonia DAY [facility] Start: 07-20-2022 Encounter for preprocedural cardiovascular examination DR TONIA DAY . [facility] Start: 07-20-2022 Encounter for preprocedural laboratory examination DR TONIA DAY . [facility] Start: 07-18-2022 End: 07-18-[address] TONIA DAY . Facility:[facility] Start: 07-17-2022 End: 07-18-[address] TONIA DAY . Facility:[facility] Start: 07-17-2022 End: 07-18-2022 Encounter for preprocedural cardiovascular examination DR TONIA DAY . Facility:[facility] Start: 07-16-2022 End: 07-16-2022 Patient encounter procedure Tonia DAY [facility] Start: 06-27-2022 End: 06-28-[address] TONIA DAY . Facility: Start: 06-10-2022 Office outpatient ne w 45 minutes Mickie Olexa [facility] Start: 06-10-2022 End: 06-10-2022 ambulatory Mickie Cooper Facility:[facility] Start: 06-10-2022 End: 06-10-2022 ambulatory MD Catracho Willis Work Phone: [facility] Work Phone: Start: 06-10-2022 End: 06-10-2022 Patient encounter procedure MD Catracho Willis Work Phone: [facility] Start: 03-29-2022 End: 03-29-2022 ambulatory Nahid Canchola Other [employer] Other Start: 03-29-2022 Patient encounter procedure Nahid Canchola [facility] Start: 03-21-2022 End: 03-21-2022 ambulatory Catracho Willis Facility:[facility] Start: 03-21-2022 End: 03-21-2022 ambulatory MD Catracho Willis Work Phone: [facility] Work Phone: Start: 03-21-2022 End: 03-21-2022 Patient encounter procedure MD Catracho Willis Work Phone: [facility] [address] Work Phone: Start: 01-07-2022 End: 01-07-2022 Patient encounter procedure Tonia DAY [facility] Start: 12-05-2021 End: 12-06-[address] TONIA DAY . Facility:[facility] Start: 12-03-2021 Office outpatient vi sit 15 minutes Nahid Canchola [facility] Start: 12-03-2021 End: 12-03-2021 ambulatory Catracho Willis [employer] Other Start: 12-03-2021 End: 12-03-2021 Patient encounter procedure MD Catracho Willis Work Phone: [facility] Start: 11-14-2021 End: 11-14-2021 ambulatory Nahid Canchola Facility:[facility] Start: 11-14-2021 End: 11-14-2021 Patient encounter procedure MD Catracho Willis Work Phone: [facility] [address] Start: 11-01-2021 End: 11-01-2021 ambulatory Nahid Canchola Other [employer] Other Start: 11-01-2021 Telephone encounter Nahid Canchola [facility] Start: 10-26-2021 End: 10-26-2021 ambulatory Nahid Canchola Facility:[facility] Start: 10-26-2021 End: 10-26-2021 Patient encounter procedure MD Catracho Willis Work Phone: [facility] Start: 10-04-2021 End: 11-15-2021 ambulatory NAHID CANCHOLA Facility: Start: 09-28-2021 End: 09-28-2021 ambulatory Nahid Canchola Other [employer] Other Start: 09-28-2021 Postop follow up vis it related to original px Nahid Trish [facility] Start: 08-17-2021 End: 08-17-2021 ambulatory Nahid Canchola Other [employer] Other Start: 08-17-2021 Postop follow up vis it related to original px Nahid Trish [facility] Start: 08-01-2021 End: 08-01-2021 ambulatory Nahid Coronado [facility] [employer] Other Start: 08-01-2021 Postop follow up vis it related to original px Nahid Trish [facility] Start: 07-31-2021 End: 07-31-2021 ambulatory Nahid Canchola Other [employer] Other Start: 07-31-2021 Telephone encounter Nahid MERRILL [facility] Start: 07-18-2021 End: 07-18-2021 ambulatory Nahid Canchola Other [employer] Other Start: 07-18-2021 Postop follow up vis it related to original px Nahid Trish [facility] Start: 07-05-2021 End: 07-05-2021 ambulatory Catracho Kellierer Facility:[facility] Start: 07-03-2021 End: 07-03-2021 ambulatory Catracho [employer] Other Start: 07-03-2021 Telephone encounter Nahid MERRILL [facility] Start: 07-02-2021 Encounter for other preprocedural examination Nahid Canchola [facility] Start: 07-02-2021 Office outpatient vi sit 25 minutes Nahid Canchola [facility] Start: 07-02-2021 End: 07-02-2021 ambulatory Catracho [employer] Other Start: 06-11-2021 End: 06-11-2021 ambulatory Nahid Canchola Other [employer] Other Start: 06-11-2021 Telephone encounter Nahid MERRILL [facility] Start: 05-28-2021 End: 05-28-2021 ambulatory Nahid Canchola Other [employer] Other Start: 05-28-2021 Telephone encounter Nahid MERRILL [facility] Start: 04-23-2021 End: 04-23-2021 ambulatory Nahid Trish Other [employer] Other Start: 04-23-2021 Office outpatient vi sit 15 minutes Nahid Galavizley [facility] Start: 03-12-2021 End: 03-12-2021 ambulatory Nahid Trish Other [employer] Other Start: 03-12-2021 Office outpatient vi sit 15 minutes Nahid Galavizley [facility] Start: 02-12-2021 End: 02-12-2021 ambulatory Nahid Trish Other [employer] Other Start: 02-12-2021 Office outpatient vi sit 15 minutes Nahid Galavizley [facility] Start: 02-05-2021 End: 02-05-2021 ambulatory Les Paul Other [employer] Other Start: 02-05-2021 Telephone encounter Les Paul [facility] Start: 01-10-2021 Office outpatient vi sit 25 minutes Nahid Canchola [facility] Start: 08-13-2018 Emergency department patient visit CATRACHO WILLIS [facility] Procedures Date Procedure Procedure Detail Performing Clinician Start: 06-24-2024 CT LUNG SCREENING LOW DOSE Catracho Willis MD Work Phone: Start: 05-31-2024 MHPT PSA, DIAGNOSTIC Ge neric External Data Provider Start: 04-20-2024 Cystoscopy Tonia GOMEZ Start: 01-06-2024 Cystoscopy Tonia GOMEZ Start: 12-19-2023 ALL CBC WITH AUTO DIFF Catracho Willis MD Work Phone: Start: 09-30-2023 Flexible cystoscope (physical object) Tonia DAY Start: 06-11-2024 Colonoscopy Catracho harmon MD Work Phone: Start: 06-24-2023 Transurethral cystoscopy Tonia DAY Start: 02-20-2023 Transurethral resect ion of bladder neoplasm Tonia DAY Start: 01-09-2023 Transurethral resect ion of bladder neoplasm Tonia DAY Start: 12-10-2022 Cystoscopy Tonia GOMEZ Start: 07-18-2022 Transurethral resect ion of bladder neoplasm Tonia DAY Start: 06-27-[address] DENICE DAY . Comment on above: Performed By: #### P SAD #### [facility] [address] [place] [address] Dr. Viktoria Nuñez Start: 06-10-2022 Plain X-ray of right shoulder MD Catracho Willis Work Phone: Start: 03-21-2022 MR lumbar spine wo con MD Catracho Willis Work Phone: Start: 12-05-[address] DENICE DAY . Comment on above: Performed By: #### P SAD #### [facility] [address] [place] [address] Dr. iVktoria Nuñez Start: 12-03-2021 X-ray of left knee MD Vickie Willis Work Phone: Start: 11-14-2021 MRI of left femur MD Geoffrey Willis Work Phone: Start: 11-14-2021 XR pre/post mri xray MD Catracho Willis Work Phone: Start: 10-26-2021 X-ray of lumbar spin e, four views MD Catracho Willis Work Phone: Start: 03-24-2021 Arthroplasty of knee Max yissel DAY Start: 10-15-2013 Cystoscopy Toniapete GOMEZ Transrectal biopsy o f prostate using ultrasound guidance Tonia DAY Plan of Treatment Date Care Activity Detail Author Start: 09-01-2033 Screening for malign ant neoplasm of colon [facility] Start: 12-20-2024 End: 12-20-2024 Patient encounter procedure 12/20/2024 10:00 AM EDT Office Visit [facility] [address] [place] [id number] Catracho Willis MD [address] [place] [id number] [facility] Start: 12-15-2024 Medicare Annual Wellness (AWV) Medicare Annual Wellness (AWV) [facility] Start: 11-22-2024 Influenza vaccination Influenz a Vaccine (Season Ended) [facility] Start: 08-17-2024 Plain X-ray of bilateral shoulders XR shoulder BI min 2V [facility] Start: 08-17-2024 XR Shoulder - bilate ral Views [facility] Start: 08-10-2024 End: 08-10-2025 Basic metabolic 1998 panel - Serum or Plasma Basic metabolic panel Lab Routine History of abdominal hernia Generalized abdominal pain Expected: 08/10/2024 (Approximate), Expires: 08/10/2025 [facility] Comment on above: Expected: 08/10/2024 (Approximate), Expires: 08/10/2025 Start: 08-10-2024 End: 08-10-2025 CT Abdomen and Pelvis W contrast IV CT abdomen pelvis w IV contrast Imaging Routine History of abdominal hernia Generalized abdominal pain Expected: 08/10/2024, Expires: 08/10/2025 [facility] Work Phone: Comment on above: Expected: 08/10/2024 , Expires: 08/10/2025 Start: 07-01-2024 End: 07-01-2024 Patient encounter procedure [facility] Comment on above: Cigarette smoker (Pr imary Dx) Start: 12-16-2023 End: 12-15-2024 Basic metabolic 1998 panel - Serum or Plasma Basic metabolic panel Lab Routine Encounter for long-term (current) use of medications Expected: 12/16/2023 (Approximate), Expires: 12/15/2024 [facility] Comment on above: Expected: 12/16/2023 (Approximate), Expires: 12/15/2024 Start: 12-16-2023 End: 12-15-2024 CBC W Auto Differential panel - Blood CBC and differential Lab Routine Encounter for long-term (current) use of medications Expected: 12/16/2023 (Approximate), Expires: 12/15/2024 [facility] Comment on above: Expected: 12/16/2023 (Approximate), Expires: 12/15/2024 Start: 12-16-2023 End: 12-15-2024 Hemoglobin A1c/Hemoglobin.total in Blood Hemoglobin A1c Lab Routine Prediabetes Expected: 12/16/2023 (Approximate), Expires: 12/15/2024 [facility] Work Phone: Comment on above: Expected: 12/16/2023 (Approximate), Expires: 12/15/2024 Start: 12-16-2023 End: 12-15-2024 Hepatic function 1999 panel - Serum or Plasma Hepatic function panel Lab Routine Encounter for long-term (current) use of medications Expected: 12/16/2023 (Approximate), Expires: 12/15/2024 [facility] Comment on above: Expected: 12/16/2023 (Approximate), Expires: 12/15/2024 Start: 12-16-2023 End: 12-15-2024 Lipid 1996 panel - Serum or Plasma Lipid panel Lab Routine Dyslipidemia (CMS/HCC) Expected: 12/16/2023 (Approximate), Expires: 12/15/2024 [facility] Comment on above: Expected: 12/16/2023 (Approximate), Expires: 12/15/2024 Start: 12-16-2023 End: 12-15-2024 Prostate specific Ag [Mass/volume] in Serum or Plasma PSA Lab Routine Screening PSA (prostate specific antigen) Expected: 12/16/2023 (Approximate), Expires: 12/15/2024 [facility] Comment on above: Expected: 12/16/2023 (Approximate), Expires: 12/15/2024 Start: 11-23-2023 Influenza vaccination Influenza Vacc ine (#1) [facility] Start: 11-14-2021 MRI of left femur MR femur LT wo con [facility] Start: 11-14-2021 XR pre/post mri xray XR pre/post mri xray [facility] Start: 11-14-2021 End: 11-14-2021 Patient encounter procedure Departed Clinical [facility] [address] Start: 1973 Pneumococcal Vaccine : 65+ Years (1 of 2 - PCV) Pneumococcal Vaccine: 65+ Years (1 of 2 - PCV) [facility] Start: 1960 Pneumococcal Vaccine : 65+ Years (1 of 2 - PCV) Pneumococcal Vaccine: 65+ Years (1 of 2 - PCV) [facility] Start: 1954 Medicare Annual Wellness (AWV) Medicare Annual Wellness (AWV) [facility] Start: 1955 Screening for malign ant neoplasm of colon [facility] Immunizations Immunization Date Immunization Notes Care Provider Carina david 11-20-2023 bacillus calmette-kely vaccine YAHAIRA TADEO [facility] 11-13-2023 bacillus calmette-kely vaccine YAHAIRA TADEO [facility] 11-06-2023 bacillus calmette-kely vaccine YAHAIRA TADEO [facility] 05-13-2023 bacillus calmette-kely vaccine YAHAIRA TADEO [facility] 05-05-2023 bacillus calmette-kely vaccine Tonia DAY [facility] 04-28-2023 bacillus calmette-kely vaccine Tonia DAY [facility] 10-22-2022 bacillus calmette-kely vaccine YAHAIRA ETHAN [facility] 10-14-2022 bacillus calmette-kely vaccine YAHAIRA ETHAN [facility] Comment on above: Early/Late Reason: E vijay/Late Reason: Other : Late documentation. Did not enter correct info 10-14-2022 bacillus calmette-kely vaccine YAHAIRA ETHAN [facility] 10-08-2022 bacillus calmette-kely vaccine YAHAIRA ETHAN [facility] 09-17-2022 bacillus calmette-kely vaccine YAHAIRA ETHAN [facility] 09-10-2022 bacillus calmette-kely vaccine YAHAIRA ETHAN [facility] 09-03-2022 bacillus calmette-kely vaccine YAHAIRA ETHAN [facility] 08-27-2022 bacillus calmette-kely vaccine YAHAIRA ETHAN [facility] 02-28-2021 COVID-19 mRNA, Comirnaty (Pfizer) MD Catracho Willis Work Phone: [facility] 01-10-2021 Kenalog -40 mg Nahid Canchola Other [employer] Other 09-01-2020 SARS-CoV-2 (COVID-19 ) mRNA BNT-162b2 vax YAHAIRA ETHAN [facility] 08-28-2020 COVID-19 mRNA, Comirnaty (Pfizer) MD Catracho Willis Work Phone: [facility] 08-11-2020 COVID-19 Sue Lux (Pfizer) MD Catracho Willis Work Phone: [facility] NEGATED: Highlighted row has not occurred!06-24-2023 influenza virus vaccine, unspecified formulation Tonia DAY [facility] Payers Date Payer Category Payer Medicare ANTH MEDICARE ADVANTAGE [employer] MEDIC[employer] ADVANTAGE [id number] 2022-Present [address] [place] [address] [id number] 2022 Medicare (Managed Care) [facility] ADVANTAGE [id number] 2022 Unknown [id number] 2021 Medicaid [id number] 2.16.840.1.215527.19 2021 Self-pay [id number] 2021 Unknown [id number] 2018 Unknown [id number] 1959 Medicare [id number] 2.16.840.1.504229.19 1954 Unknown [id number] .16.840.1.320924.3.579.2. 173 1954 Unknown [id number] 2.16.840.1.536808.3.579.2. 593 1954 Unknown [id number] 2.16.840.1.051288.3.579.2. 593 1954 Unknown [id number] 2.16.840.1.309545.3.579.2. 593 1954 Unknown [id number] 2.16.840.1.759732.3.579.2. 593 1954 Unknown [id number] 2.16.840.1.193853.3.579.2. 593 1954 Unknown [id number] 2.16.840.1.642950.3.579.2. 593 1954 Unknown [id number] 2.840.1.393060.3.579.2. 727 1954 Unknown [id number] 2.16.840.1.358191.3.579.2. 727 1954 Unknown [id number] 2.16.840.1.440120.3.579.2. 727 1954 Unknown [id number] 2.16840.1.925642.3.579.2. 727 1954 Unknown [id number] 2.840.1.977200.3.579.2. 727 1954 Unknown [id number] 2.16.840.1.464060.3.579.2. 727 1954 Unknown [id number] 2.16.840.1.444932.3.579.2. 727 1954 Unknown [id number] 2.16.840.1.025149.3.579.2. 727 1954 Unknown [id number] 2.16.840.1.168938.3.579.2. 727 1954 Unknown [id number] 2.16.840.1.894053.3.579.2. 727 1954 Unknown [id number] 2.840.1.888253.3.579.2. 72 1954 Unknown [id number] 2.16840.1.002418.3.579.2. 72 1954 Unknown [id number] 2.840.1.927395.3.579.2. 72 1954 Unknown [id number] 2.840.1.843012.3.579.2. 72 1954 Unknown [id number] 2.840.1.298004.3.579.2. 72 1954 Unknown [id number] 2.840.1.277235.3.579.2. 125 1954 Unknown [id number] .840.1.798009.3.579.2. 125 1954 Unknown [id number] 2.840.1.099962.3.579.2. 125 1954 Unknown [id number] 2.840.1.215772.3.579.2. 125 1954 Unknown [id number] 2.840.1.678006.3.579.2. 72 1954 Unknown [id number] .840.1.009102.3.579.2. 72 1954 Unknown [id number] .840.1.023561.3.579.2. 72 1954 Unknown [id number] 2.840.1.692959.3.579.2. 72 Unknown [place] BC/BS [id number] Unknown [id number] 2.16840.1.103182.3.579.2. 531 Unknown [id number] 2.16.840.1.274282.3.579.2. 531 Unknown [id number] 2.16.840.1.337751.3.579.2. 531 Unknown [id number] 2.16.840.1.795869.3.579.2. 531 Unknown [id number] 2.16.840.1.497692.3.579.2. 531 Unknown [id number] 2.16.840.1.993577.3.579.2. 531 Unknown [id number] 2.16.840.1.450427.3.579.2. 531 Unknown [id number] 2.16.840.1.881393.3.579.2. 531 Unknown [id number] 2.16.840.1.168393.3.579.2. 531 Social History Date Type Detail Facility Start: 12-16-2023 End: 07-01-2024 [facility] Assigned At [facility] Start: 07-05-2021 End: 07-05-2021 Tobacco smoking status NHIS Smoker (finding) [facility] Start: 1955 Sex Assigned At Male [facility] Start: 09-05-2020 Tobacco smoking status Never s moked tobacco (finding) [facility] Start: 06-05-2022 End: 04-20-2024 Tobacco smoking status Heavy tobacco smoker (finding) [facility] Tobacco smoking status Never [facility] Start: 03-24-1972 Tobacco smoking stat us MOIS Smokes tobacco daily [facility] Start: 03-24-1972 History of tobacco use Cigarette Smo ker [facility] Start: 04-02-2023 End: 12-16-2023 Cigarettes smoked current (pack per day) - Reported 1 [facility] Start: 04-02-2023 Tobacco use and exposure Smokeless tobacco non-user [facility] Start: 1955 Sex assigned at Not on file [facility] Start: 06-03-2024 End: 08-17-2024 Sex Male (finding) [facility] Medical Equipment Procedure Code Equipment Code Equipment Origin al Text Equipment Identifier Dates Arthroplasty, knee, total, minimally invasive Orthopaedic cement, non-medicated [id number] FDA Start: 07-05-2021 Arthroplasty, knee, total, minimally invasive Coated knee femur prosthesis ()[id number] FDA Start: 07-05-2021 Arthroplasty, knee, total, minimally invasive Tibial insert [id number] FDA Start: 07-05-2021 Arthroplasty, knee, total, minimally invasive Polyethylene patella prosthesis ()[id number] FDA Start: 07-05-2021 Arthroplasty, knee, total, minimally invasive Uncoated knee tibia prosthesis, metallic ()[id number] FDA Start: 07-05-2021 Functional Status Date Assessment Result Facility 04-20-2024 Functional Status N/A [facility] 01-06-2024 Functional Status N/A [facility] 11-20-2023 Functional Status N/A [facility] 11-06-2023 Functional Status N/A [facility] 09-30-2023 Functional Status N/A [facility] 06-24-2023 Functional Status N/A [facility] 05-13-2023 Functional Status N/A [facility] 05-05-2023 Functional Status N/A [facility] 03-03-2023 Functional Status N/A [facility] 01-17-2023 Functional Status N/A [facility] 12-10-2022 Functional Status N/A [facility] 10-22-2022 Functional Status N/A [facility] 10-08-2022 Functional Status N/A [facility] 09-17-2022 Functional Status N/A [facility] 09-10-2022 Functional Status N/A [facility] 09-03-2022 Functional Status N/A [facility] 08-27-2022 Functional Status N/A [facility] 07-26-2022 Functional Status N/A [facility] 01-07-2022 Functional Status N/A [facility] Clinical Notes 06-28-2010 to 07-30-2024 Dee Flores NP - 07/01/2024 5:24 PM Sebas Flores NP - 07/01/2024 5:22 PM ERKI LINK - 07/01/2024 2:40 PM Sebas Flores NP - 07/01/2024 2:40 PM EDTPatient Instructions Note Date & Type Note Facility 07-30-2024 Note Patient Education Oncology Bladder Cancer Bladder [...] you more likely to develop this condition: ??? Smoking. ??? Working where there are risks (occupational exposures), such as working with rubber, leather, clothing fabric, dyes, chemicals, or paint. ??? Being 55 years of age or older. ??? Being male. ??? Having long-term bladder inflammation. ??? Having a history of cancer. This includes: ? A family history of bladder cancer. ? Having had bladder cancer before. ? Having had certain treatments for cancer before, such as: ? Medicines to kill cancer cells (chemotherapy). ? Strong X-ray beams or high-energy capsules to kill cancer cells and shrink tumors (radiation therapy). ??? Having been exposed to arsenic. This is a poisonous substance. What are the signs or symptoms? Early symptoms of this condition include: ??? Blood in your urine. ??? Pain when urinating. ??? Infections of your urinary system (urinary tract infections or UTIs) that happen often. ??? Having to urinate sooner or more often than normal. Late symptoms of this condition include: ??? Not being able to urinate. ??? Pain on one side of your lower back. ??? Loss of appetite. ??? Weight loss. ??? Tiredness (fatigue). ??? Swelling in your feet. ??? Bone pain. How is this diagnosed? This condition is diagnosed based on: ??? Your medical history. ??? A physical exam. ??? Lab tests, such as urine tests. ??? Imaging tests. ??? Your symptoms. You may also have other tests or procedures, such as: ??? A cystoscopy. This involves putting a narrow tube into your urethra. The urethra is the organ that carries urine from your bladder to the outside of your body. This procedure is done to view the lining of your bladder for tumors. ??? A biopsy. This involves removing a tissue sample to look at under a microscope to check for cancer. Blood tests or imaging tests may be needed. These show how far into the bladder wall cancer has grown, and if cancer has spread to any other parts of your body. Tests may include: ??? CT scan. ??? MRI. ??? Bone scan. ??? X-ray. How is this treated? Your health care provider may recommend one or more types of treatment based on the stage of your cancer. The most common treatments are: ??? Surgery to remove the cancer. Types of surgeries include: ? Removing a tumor on the inside wall of the bladder (transurethral resection). ? Removing the bladder (cystectomy). ??? Radiation therapy. This is often combined with chemotherapy. ??? Chemotherapy. ??? Immunotherapy. This uses medicines to help your body's disease-fighting system (immune system) destroy cancer cells. Follow these instructions at home: ??? Take bnfm-kxc-vocxlyb and prescription medicines only as told by your health care provider. ??? If you were prescribed an antibiotic medicine, take it as told by your health care provider. Do not stop using the antibiotic even if you start to feel better. ??? Eat a healthy diet. Some treatments might affect your appetite. ??? Do not use any products that contain nicotine or tobacco. These products include cigarettes, chewing tobacco, and vaping devices, such as e-cigarettes. If you need help quitting, ask your health care provider. ??? Consider joining a support group. This may help you learn to deal with the stress of having bladder cancer. ??? Tell your cancer care team if you develop side effects. Your team may be able to recommend ways to get relief. ??? Keep all follow-up visits. This is important. Where to find more information ??? [place] [employer] (ACS): cancer.org ??? National Cancer [employer] (NCI): cancer.gov Contact a health care provider if: ??? You have symptoms of a UTI. These include: ? Fever. ? Chills. ? Weakness. ? Muscle aches. ? Pain in your abdomen. ? Urge to urinate that is stronger and happens more often than normal. ? Burning in the bladder or urethra when you urinate. Get help right away if: ??? There is blood in your urine. ??? You cannot urinate. ??? You have severe pain or other symptoms that do not go away. Summary ??? Bladder cancer is a condition where tumors grow in the bladder. ??? Diagnosis is based on your medical history, a physical exam, lab tests, imaging tests, and your symptoms. ??? Your health care provider may recommend one or more types of treatment based on the stage of your cancer. ??? Consider joining a support group. This may help you learn to deal with the stress of having bladder cancer. This information is n (more content not included)... [facility] 07-23-2024 Note Patient Education Oncology Bladder Cancer Bladder [...] you more likely to develop this condition: ??? Smoking. ??? Working where there are risks (occupational exposures), such as working with rubber, leather, clothing fabric, dyes, chemicals, or paint. ??? Being 55 years of age or older. ??? Being male. ??? Having long-term bladder inflammation. ??? Having a history of cancer. This includes: ? A family history of bladder cancer. ? Having had bladder cancer before. ? Having had certain treatments for cancer before, such as: ? Medicines to kill cancer cells (chemotherapy). ? Strong X-ray beams or high-energy capsules to kill cancer cells and shrink tumors (radiation therapy). ??? Having been exposed to arsenic. This is a poisonous substance. What are the signs or symptoms? Early symptoms of this condition include: ??? Blood in your urine. ??? Pain when urinating. ??? Infections of your urinary system (urinary tract infections or UTIs) that happen often. ??? Having to urinate sooner or more often than normal. Late symptoms of this condition include: ??? Not being able to urinate. ??? Pain on one side of your lower back. ??? Loss of appetite. ??? Weight loss. ??? Tiredness (fatigue). ??? Swelling in your feet. ??? Bone pain. How is this diagnosed? This condition is diagnosed based on: ??? Your medical history. ??? A physical exam. ??? Lab tests, such as urine tests. ??? Imaging tests. ??? Your symptoms. You may also have other tests or procedures, such as: ??? A cystoscopy. This involves putting a narrow tube into your urethra. The urethra is the organ that carries urine from your bladder to the outside of your body. This procedure is done to view the lining of your bladder for tumors. ??? A biopsy. This involves removing a tissue sample to look at under a microscope to check for cancer. Blood tests or imaging tests may be needed. These show how far into the bladder wall cancer has grown, and if cancer has spread to any other parts of your body. Tests may include: ??? CT scan. ??? MRI. ??? Bone scan. ??? X-ray. How is this treated? Your health care provider may recommend one or more types of treatment based on the stage of your cancer. The most common treatments are: ??? Surgery to remove the cancer. Types of surgeries include: ? Removing a tumor on the inside wall of the bladder (transurethral resection). ? Removing the bladder (cystectomy). ??? Radiation therapy. This is often combined with chemotherapy. ??? Chemotherapy. ??? Immunotherapy. This uses medicines to help your body's disease-fighting system (immune system) destroy cancer cells. Follow these instructions at home: ??? Take ctbt-oyx-xtenxsc and prescription medicines only as told by your health care provider. ??? If you were prescribed an antibiotic medicine, take it as told by your health care provider. Do not stop using the antibiotic even if you start to feel better. ??? Eat a healthy diet. Some treatments might affect your appetite. ??? Do not use any products that contain nicotine or tobacco. These products include cigarettes, chewing tobacco, and vaping devices, such as e-cigarettes. If you need help quitting, ask your health care provider. ??? Consider joining a support group. This may help you learn to deal with the stress of having bladder cancer. ??? Tell your cancer care team if you develop side effects. Your team may be able to recommend ways to get relief. ??? Keep all follow-up visits. This is important. Where to find more information ??? [place] [employer] (ACS): cancer.org ??? National Cancer Corb[place] (NCI): cancer.gov Contact a health care provider if: ??? You have symptoms of a UTI. These include: ? Fever. ? Chills. ? Weakness. ? Muscle aches. ? Pain in your abdomen. ? Urge to urinate that is stronger and happens more often than normal. ? Burning in the bladder or urethra when you urinate. Get help right away if: ??? There is blood in your urine. ??? You cannot urinate. ??? You have severe pain or other symptoms that do not go away. Summary ??? Bladder cancer is a condition where tumors grow in the bladder. ??? Diagnosis is based on your medical history, a physical exam, lab tests, imaging tests, and your symptoms. ??? Your health care provider may recommend one or more types of treatment based on the stage of your cancer. ??? Consider joining a support group. This may help you learn to deal with the stress of having bladder cancer. This information is n (more content not included)... [facility] 07-15-2024 Note Patient Education Oncology Bladder Cancer Bladder [...] you more likely to develop this condition: ??? Smoking. ??? Working where there are risks (occupational exposures), such as working with rubber, leather, clothing fabric, dyes, chemicals, or paint. ??? Being 55 years of age or older. ??? Being male. ??? Having long-term bladder inflammation. ??? Having a history of cancer. This includes: ? A family history of bladder cancer. ? Having had bladder cancer before. ? Having had certain treatments for cancer before, such as: ? Medicines to kill cancer cells (chemotherapy). ? Strong X-ray beams or high-energy capsules to kill cancer cells and shrink tumors (radiation therapy). ??? Having been exposed to arsenic. This is a poisonous substance. What are the signs or symptoms? Early symptoms of this condition include: ??? Blood in your urine. ??? Pain when urinating. ??? Infections of your urinary system (urinary tract infections or UTIs) that happen often. ??? Having to urinate sooner or more often than normal. Late symptoms of this condition include: ??? Not being able to urinate. ??? Pain on one side of your lower back. ??? Loss of appetite. ??? Weight loss. ??? Tiredness (fatigue). ??? Swelling in your feet. ??? Bone pain. How is this diagnosed? This condition is diagnosed based on: ??? Your medical history. ??? A physical exam. ??? Lab tests, such as urine tests. ??? Imaging tests. ??? Your symptoms. You may also have other tests or procedures, such as: ??? A cystoscopy. This involves putting a narrow tube into your urethra. The urethra is the organ that carries urine from your bladder to the outside of your body. This procedure is done to view the lining of your bladder for tumors. ??? A biopsy. This involves removing a tissue sample to look at under a microscope to check for cancer. Blood tests or imaging tests may be needed. These show how far into the bladder wall cancer has grown, and if cancer has spread to any other parts of your body. Tests may include: ??? CT scan. ??? MRI. ??? Bone scan. ??? X-ray. How is this treated? Your health care provider may recommend one or more types of treatment based on the stage of your cancer. The most common treatments are: ??? Surgery to remove the cancer. Types of surgeries include: ? Removing a tumor on the inside wall of the bladder (transurethral resection). ? Removing the bladder (cystectomy). ??? Radiation therapy. This is often combined with chemotherapy. ??? Chemotherapy. ??? Immunotherapy. This uses medicines to help your body's disease-fighting system (immune system) destroy cancer cells. Follow these instructions at home: ??? Take oykd-eqz-jfhxsgw and prescription medicines only as told by your health care provider. ??? If you were prescribed an antibiotic medicine, take it as told by your health care provider. Do not stop using the antibiotic even if you start to feel better. ??? Eat a healthy diet. Some treatments might affect your appetite. ??? Do not use any products that contain nicotine or tobacco. These products include cigarettes, chewing tobacco, and vaping devices, such as e-cigarettes. If you need help quitting, ask your health care provider. ??? Consider joining a support group. This may help you learn to deal with the stress of having bladder cancer. ??? Tell your cancer care team if you develop side effects. Your team may be able to recommend ways to get relief. ??? Keep all follow-up visits. This is important. Where to find more information ??? [place] [employer] (ACS): cancer.org ??? National Cancer Corb[place] (NCI): cancer.gov Contact a health care provider if: ??? You have symptoms of a UTI. These include: ? Fever. ? Chills. ? Weakness. ? Muscle aches. ? Pain in your abdomen. ? Urge to urinate that is stronger and happens more often than normal. ? Burning in the bladder or urethra when you urinate. Get help right away if: ??? There is blood in your urine. ??? You cannot urinate. ??? You have severe pain or other symptoms that do not go away. Summary ??? Bladder cancer is a condition where tumors grow in the bladder. ??? Diagnosis is based on your medical history, a physical exam, lab tests, imaging tests, and your symptoms. ??? Your health care provider may recommend one or more types of treatment based on the stage of your cancer. ??? Consider joining a support group. This may help you learn to deal with the stress of having bladder cancer. This information is n (more content not included)... [facility] 07-01-2024 History of Presen t illness Narrative Associated Problem(s): History of abdominal hernia Hx of this with a repair umbilical [...] have recommended he mention this to dr day as well Associated Problem(s): Bladder cancer ([facility]) Continue with urology Would recommend saying something to urology team about the discomfort Pt does not have pain, just sore, he started to notice protrusion when laying on his side and would feel/ push around to feel pain. He would get 2-3 on the pain scale. States that it does not bother him when standing/walking, Only when sitting and laying. It has not been a big deal for the last week or so. Images from the original note were not included. Darian Florentino is a 69 y.o. male presents with chief complaint of No chief complaint on file. HPI: Pt does not have pain, just sore, he started to notice protrusion when laying on his side and would feel/ push around to feel pain. He would get 2-3 on the pain scale. States that it does not bother him when standing/walking, Only when sitting and laying. It has not been a big deal for the last week or so. Hx umbilical region hernia repair. No trauma or heavy lifting No NVD bowels are moving well, as well as urination. No scrotal/testicle area pain SUBJECTIVE: MEDICATIONS: Current Outpatient Medications Medication Instructions nicotine polacrilex (Nicorette) 2 MG gum Chew 1 piece every 2-4 hours as needed omeprazole (PriLOSEC) [address] capsule 1 capsule, Daily before breakfast ALLERGIES: No Known Allergies REVIEW OF SYMPTOMS: Review of Systems Constitutional: Negative for activity change, appetite change and unexpected weight change. HENT: Negative for ear pain, nosebleeds, sneezing, trouble swallowing and voice change. Eyes: Negative for pain, discharge and visual disturbance. Respiratory: Negative for apnea, chest tightness and wheezing. Cardiovascular: Negative for leg swelling. Gastrointestinal: Positive for abdominal pain. Negative for abdominal distention, blood in stool, constipation and diarrhea. Genitourinary: Negative for decreased urine volume, difficulty urinating, dysuria and hematuria. Skin: Negative for color change. Neurological: Negative for dizziness, tremors and seizures. Psychiatric/Behavioral: Negative for agitation, decreased concentration, hallucinations, self-injury and suicidal ideas. The patient is not nervous/anxious. Hematological: Negative for adenopathy. Does not bruise/bleed easily. Endocrine: Negative for cold intolerance, heat intolerance, polydipsia and polyuria. Allergic/Immunologic: Negative for environmental allergies and food allergies. PAST MEDICAL HISTORY Past Medical History: Diagnosis Date Anxiety Arthralgia of multiple sites, bilateral At low risk for fall Bilateral carpal tunnel syndrome BPH associated with nocturia Chronic pain in right shoulder 05/23/2014 DDD (degenerative disc disease), lumbar Encounter for long-term (current) use of medications Gastroesophageal reflux disease without esophagitis Globus sensation Hyperglycemia Hypersomnia Left leg pain Lung nodule, multiple Malignant neoplasm of urinary bladder, unspecified site (CMS/HCC) Noise-induced hearing loss of both ears Osteoarthritis, chronic Overweight (BMI 25.0-29.9) Primary osteoarthritis of left knee 05/23/2014 Proteinuria, unspecified type Rupture of right proximal biceps tendon, sequela Tobacco abuse Vitamin D deficiency Past Surgical History: Procedure Laterality Date KNEE SURGERY Right Arthroscopic Knee Surgery - Right; inner knee replacement SHOULDER ARTHROSCOPY Bilateral TOTAL KNEE ARTHROPLASTY Left 07/05/2021 family history includes Cancer in his mother; Heart disease in his father; Hypertension in his father; Parkinsonism in his father. OBJECTIVE: Visit Vitals BP 124/80 (BP Location: Left arm, Patient Position: Sitting, BP Cuff Size: Adult long) Pulse 61 Temp 97.8 F (Temporal) Resp 18 Ht 6' Wt 190 lb SpO2 93% BMI 25.77 kg/m Smoking Status Every Day BSA 2.09 m Physical Exam Vitals and nursing note reviewed. Constitutional: Appearance: Normal appearance. He is not ill-appearing. HENT: Head: Normocephalic. Right Ear: External ear normal. Left Ear: External ear normal. Nose: Nose normal. Mouth/Throat: Mouth: Mucous membranes are moist. Pharynx: Oropharynx is clear. Eyes: Extraocular Movements: Extraocular movements intact. Conjunctiva/sclera: Conjunctivae normal. Cardiovascular: Rate and Rhythm: Normal rate and regular rhythm. Pulses: Normal pulses. Heart sounds: Normal heart sounds. No murmur heard. Pulmonary: Effort: Pulmonary effort is normal. Breath sounds: Normal breath sounds. No wheezing or rhonchi. Abdominal: General: Bowel sounds are normal. There is no distension. Palpations: Abdomen is soft. There is no mass. Tenderness: There is no abdominal tenderness. There is no guarding or rebound. Hernia: No hernia is present. Comments: No definite hernia, possible early weaken muscle wall area Musculoskeletal: Cervical back: Neck supple. Right lower leg: No edema. Left lower leg: No edema. Skin: General: Skin is warm and dry. Capillary Refill: Capillary refill takes 2 to 3 seconds. Neurological: General: No focal deficit present. Mental Status: He is alert. Psychiatric: Mood and Affect: Mood normal. Behavior: Behavior normal. Thought Content: Thought content normal. Judgment: Judgment normal. ASSESSMENT AND PLAN: No follow-ups on file. Problem List Items Addressed This Visit Bladder cancer (CMS/HCC) Continue with urology Would recommend saying something to urology team about the discomfort Cigarette smoker - Primary The patient has been advised of the risks of continued smoking: stroke, [place], all forms of cancer, lung disease, and . Options for quitting smoking include: cold turkey, hypnosis, acupuncture, nicotine replacement meds (gum, lozenges, and patches), Buproprion, and Varenicline. At this time pt is encouraged to evaluate their goals for wanting to quit smoking, and reach out to provider when ready to start this process History of abdominal hernia Hx of this with a repair umbilical [...] have recommended he mention this to dr day as well Associated Problem(s): Cigarette smoker The patient has been advised of the risks of continued smoking: stroke, [place], all forms of cancer, lung disease, and . Options for quitting smoking include: cold turkey, hypnosis, acupuncture, nicotine replacement meds (gum, lozenges, and patches), Buproprion, and Varenicline. At this time pt is encouraged to evaluate their goals for wanting to quit smoking, and reach out to provider when ready to start this process documented in this encounter [facility] 07-01-2024 Instructions Dee Flores NP - 07/01/2024 2:40 PM EDT If red flag symptoms occur, also let urology team know about that as well documented in this encounter [facility] 06-03-2024 Evaluation note Diagnosis Onset Date Resolution Lower respiratory infection (e.g., bronchitis, pneumonia, pneumonitis, noneactive June 03, 2024 1:38pm Arthritis of right glenohumeral joint acute August 17 12:52pm Right rotator cuff tear acute M ay 2024 12:52pm Tendonitis of left rotator cuff acute August 17, 2024 12:52pm [facility] Work Phone: [phone] 110-401901-28-2025 Hospital Discharge instructions Patient Education 04/20/2024 14:55:56 Cancer Screening for Males Cancer Screening for Males A cancer screening is a test or exam that checks for cancer. Work with your health care provider tocreate a cancer screening schedule that protects your health. Who should have screening? All people who are male should be considered for screening of certain cancers, including colorectalcancer, prostate cancer, lung cancer, and skin cancer. Your health care provider may recommend screenings for other types of cancer if: You have had cancer before. You have a family member with cancer. You have genes that could increase the risk of cancer. You have risk factors for certain cancers, such as current or past use of tobacco products or beingoverweight. What are the benefits of screening? Cancer [...] stool. For this test, you will need tocollect stool samples at home. Stool DNA test. This test looks for blood in stool and any changes in DNA that can lead to colon cancer. For this test, you will need to collect a stool sample at home and send it to a lab. All adults should have screenings starting at 45 years old and continuing through 75 years old. Formales 76 85 years old, the decision to [...] start screening at an earlier age. Talk withyour health care provider about which screening test [...] old. Talk with your health care provider aboutwhether screening is right for you and, if [...] if anything looks unusual. Males with a tfauxe-gtsx-wvpnbg risk for skin cancer may want to see a industrial safety and health specialist (astronomy teacher) for an annual body check. Where to find more information [place] [employer]: cancer.org Centers for Disease Control and Prevention: cdc.gov National Cancer Corbett: cancer.gov Contact a health care provider if: [...] provider. Document Revised: 03/18/2023 Document Reviewed: 09/30/2022 [employer] Patient Education 2023 [employer]. Follow Up Care 04/01/2024 13:22:55 With:BARB RAMIREZ, Tonia Vasquez, URL Address: [facility] [address] , [place] [address]- When: Unknown [facility]ora 01-28-2025 NotePatient Education Oncology Cancer Screening for Males A cancer screening is a test or exam that checks for cancer. Work with your health care provider tocreate a cancer screening schedule that protects your health. Who should have screening? All people who are male should be considered for screening of certain cancers, including colorectalcancer, prostate cancer, lung cancer, and skin cancer. [...] old and continuing through 75 years old. Formales 76?85 years old, the decision to be screened should be based on a person's preferences, life expectancy, overall health, and prior screening history. Your health care provider may recommend screening before 45 years old. You will have tests every 1?10 years, depending on your results and the type of screening test. People at increased risk should start screening at an earlier age. Talk withyour health care provider about which screening test [...] such as being an person or having aclose family member with prostate cancer. ??? You have had gene changes or a genetic condition that was passed on to you from a parent (inherited). These gene changes or genetic conditions include BRCA1 or BRCA2 gene mutations or Obrien syndrome. ??? You have symptoms of prostate cancer, such as problems urinating or problems getting or keepingan erection (erectile dysfunction). When you have been screened for prostate cancer, future screening may be recommended based on the results of your blood tests. Prostate cancer screening for males with average risk may start at 50 years old. Males with risk factors may need to be screened earlier, at 40?45 years old. Talk with your health care provider aboutwhether screening is right for you and, if [...] if anything looks unusual. Males with a ladnlq-ijow-xpaqap risk for skin cancer may want to see a industrial safety and health specialist (dermatologi (more content not included)...[facility]01[facility] Evaluation + Plan note Diagnostic Tests Pending * [facility] ([facility]) 04/20/24 [facility] 10-15-2024 Hospital Discharge instructions Patient Education 01/06/2024 14:20:04 Erectile Dysfunction Erectile Dysfunction Erectile dysfunction (ED) is the inability to get or keep an erection in order to have sexual intercourse. ED is considered a symptom of an underlying disorder and is not considered a disease. ED mayinclude: Inability to get an erection. Lack of [...] back or pelvic injuries, multiple sclerosis, Parkinson's disease,spinal cord injury, and stroke. Certain medicines, such [...] or the penis may be too curved toallow for intercourse. Never having nighttime or morning [...] penis. During this procedure, a blood vessel froma different part of the body is placed into the penis to allow blood to flow around (bypass) damaged or blocked blood vessels. Lifestyle changes, such as exercising more, losing weight, and quitting smoking. Follow these instructions at home: Medicines Take pspn-axk-dfjdcuw and prescription medicines only as told by your health care provider. Do not increase the dosage without first discussing it with your health care provider. If you are using self-injections, do injections as directed by your health care provider. Make sureyou avoid any veins that are on the surface of the penis. After giving an injection, apply pressureto the injection site for 5 minutes. Talk [...] need help quitting, ask your health careprovider. Before using a vacuum pump, read the instructions that come with the pump and discuss any questionswith your health care provider. Keep all follow-up [...] provider. Document Revised: 06/06/2021 Document Reviewed: 06/06/2021 [employer] Patient Education 2023 [employer] 01/06/2024 14:10:50 Cancer Screening for Males Cancer Screening for Males A cancer screening is a test or exam that checks for cancer. Work with your health care provider tocreate a cancer screening schedule that protects your health. Who should have screening? All people who are male should be considered for screening of certain cancers, including colorectalcancer, prostate cancer, lung cancer, and skin cancer. Your health care provider may recommend screenings for other types of cancer if: You have had cancer before. You have a family member with cancer. You have genes that could increase the risk of cancer. You have risk factors for certain cancers, such as current or past use of tobacco products or beingoverweight. What are the benefits of screening? Cancer [...] stool. For this test, you will need tocollect stool samples at home. Stool DNA test. This test looks for blood in stool and any changes in DNA that can lead to colon cancer. For this test, you will need to collect a stool sample at home and send it to a lab. All adults should have screenings starting at 45 years old and continuing through 75 years old. Formales [age] years old, the decision to [...] start screening at an earlier age. Talk withyour health care provider about which screening test [...] old. Talk with your health care provider aboutwhether screening is right for you and, if [...] if anything looks unusual. Males with a biwqnb-wrpc-ejzxkn risk for skin cancer may want to see a industrial safety and health specialist (astronomy teacher) for an annual body check. Where to find more information [place] [employer]: cancer.org Centers for Disease Control and Prevention: cdc.gov National Cancer Corbett: cancer.gov Contact a health care provider if: [...] provider. Document Revised: 03/18/2023 Document Reviewed: 09/30/2022 [employer] Patient Education 2023 [employer]. Follow Up Care 12/04/2023 11:26:46 With:BARB RAMIREZ, Tonia Vasquez, URL Address: [facility] [address] , [place] [address]- When: Unknown [facility] 10-15-2024 NotePatient Education Oncology Cancer Screening for Males A cancer screening is a test or exam that checks for cancer. Work with your health care provider tocreate a cancer screening schedule that protects your health. Who should have screening? All people who are male should be considered for screening of certain cancers, including colorectalcancer, prostate cancer, lung cancer, and skin cancer. [...] blood in stool. It can be done athome with a kit. ? Fecal immunochemical test [...] old and continuing through 75 years old. Formales 76?85 years old, the decision to be screened should be based on a person's preferences, life expectancy, overall health, and prior screening history. Your health care provider may recommend screening before 45 years old. You will have tests every 1?10 years, depending on your results and the type of screening test. People at increased risk should start screening at an earlier age. Talk withyour health care provider about which screening test [...] old. Talk with your health care provider aboutwhether screening is right for you and, if [...] if anything looks unusual. Males with a sdrhiw-ffov-wxiaft risk for skin cancer may want to see a industrial safety and health specialist (astronomy teacher) for an annual body check. Where (more content not included)...[facility]10-15-2024 Evaluation + Plan note Diagnostic Tests Pending * UroVysion Fish and Urine Cyto ([facility]) 01/06/24 [facility] 09-24-2024 History of Present illness Narrative* Catracho Willis MD - 12/16/2023 12:16 PM EDTAssociated Problem(s): Medicare annual wellness visit, subsequent Due for labs. Discussed proper diet and regular aerobic exercise. Need aerobic exercise 5-6 days a week for 30 minutes at a time. Smaller portions and limit total calories. Colonoscopy every 10 years. Tetanus every 10 years. Advised not to smoke. Discussed daily Aspirin therapy. * Catracho Willis MD - 12/16/2023 12:16 PM EDTAssociated Problem(s): Bladder cancer ([facility]) Follow with urology. * Catracho Willis MD - 12/16/2023 11:00 AM EDT Subjective Patient ID: Darian Florentino is a 68 y.o. male who presents for Medicare Annual Wellness Visit Subsequent (wellness). Presents for medicare annual wellness visit. Patient feels well today. Weight unchanged since last visit. Active and tries to walk and exercise several days a week. Tries to watch diet and eat healthy. Increased fruits and vegetables. Smaller portions and limits snacking. Tries to limit total dailycalories. Due for labs. LDCT chest normal in [...] Prediabetes Relevant Orders Hemoglobin A1c Bladder cancer (CMS/HCC) Follow with urology. Encounter for long-term (current) [...] Relevant Orders Lipid panel [id number] Hospital Discharge instructions Patient Education 11/20/2023 14:58:25 [...] in the brain or spinal cord (intraventricular orintrathecal chemotherapy). As an installation into the intraperitoneal [...] into a large vein in your chest orupper arm. This may be used for weeks [...] large vein close to your heart (tunneled catheter).This catheter may stay in place for months or years. While you are receiving your chemotherapy medicine, your cancer care team may monitor your blood pressure, heart rate, breathing rate, and blood oxygen level (vital signs) and watch for any problems. Some types of chemotherapy medicine are given only one time. Others are given for months, years, orfor life. What can I expect after treatment? [...] not available, use an alcohol based hand safety fire boss that contains at least 60% alcohol. Have [...] sex while you are taking chemotherapy medicines. Thesemedicines can stay active in your body for [...] 20 seconds after each time you use thetoilet. Keep all follow-up visits. This is important. Eating and drinking Talk with a dietitian about what you should eat and drink during cancer treatment. Always wash fresh fruits and vegetables well before eating them. Drink enough fluid to keep your urine pale yellow. Medicines Take wkbo-adu-zlgpnnt and prescription medicines only as told by [...] the type of cancer being treated. Take uzhr-hdk-hsrlucg and prescription medicines only as told by your health care provider. This information is not intended to replace advice given to you by your health care provider. Make sure you discuss any questions you have with your health care provider. Document Revised: 01/01/2022 Document Reviewed: 01/01/2022 [employer] Patient Education 2022 [employer]. Follow Up Care 10/28/2023 15:46:45 With:BARB RAMIREZ, Tonia Vasquez, URL Address: [facility] [address] , [place] [phone] When: Unknown Comments:sched surveillance cysto 12/2023 [facility] [place] 08-29-2024 NotePatient Education Oncology Chemotherapy Chemotherapy is a cancer [...] different kinds of catheters. You might have onethat: ? Goes into a vein (intravenous catheter). [...] time. Others are given for months, years, orfor life. What can I expect after treatment? [...] hands for at least 20 seconds. If soapand water are not available, use an alcohol based hand safety fire boss that contains at least 60% alcohol. Have [...] 48 hours after you receive treatment. Ask yourhealth care (more content not included)...[facility]08-22-2024 Hospital Discharge instructions Patient Education 11/13/2023 14:35:36 [...] health care provider may recommend screenings for othertypes of cancer if: You had cancer before. [...] stool. For this test, you will need tocollect stool samples at home. Stool DNA test. [...] if anything looks unusual. Men with a srthlr-vphp-bbhpdo risk for skin cancer may want to see a industrial safety and health specialist (astronomy teacher) for an annual body check. What are the benefits of screening? Cancer screening is done to look for cancer in the very early stages, before it spreads and becomesharder to treat and before you would start to notice symptoms. Finding cancer early improves the chances of successful treatment. It may save your life. Where to find more information [place] [employer]: www.cancer.org Centers for Disease Control and Prevention: www.cdc.gov National Cancer Corbett: www.cancer.gov Contact a health care provider if: [...] provider. Document Revised: 08/06/2021 Document Reviewed: 02/04/2020 [employer] Patient Education 2022 [employer]. Follow Up Care 10/28/2023 15:39:59 With:YAHAIRA TADEO PA-C, URL Address: [address] [place] [address] When: Unknown Comments:BCG #3 of 3 in 1 week [facility] 08-22-2024 NotePatient Education Oncology Cancer Screening for Men A [...] health care provider may recommend screenings for othertypes of cancer if: ? You had cancer [...] blood in stool. It can be done athome with a kit. ? Fecal immunochemical test [...] if anything looks unusual. Men with a fymaeb-kytx-naavwq risk for skin cancer may want to see a industrial safety and health specialist (astronomy teacher) for an annual body check. What are the benefits of screening? Cancer screening is done to look for cancer in the very early stages, before it spreads and becomesharder to treat and before you would start to notice symptoms. Finding cancer early improves the chances of success (more content not included)...[facility]08-15-2024 Hospital Discharge instructions Patient Education 11/06/2023 14:46:15 [...] cells. Follow these instructions at home: Take ydyx-fey-dmwngac and prescription medicines only as told by [...] is important. Where to find more information [place] Cancer Society (ACS): cancer.org National Cancer Corbett (NCI): cancer.gov Contact a health care provider [...] provider. Document Revised: 02/18/2022 Document Reviewed: 02/18/2022 [employer] Patient Education 2022 [employer]. Follow Up Care 10/28/2023 15:36:25 With:YAHAIRA TADEO PA-C, URL Address: [address] [place] [address] [place] [address] When: Unknown Comments:1 week for BCG #2 of 3 half dose [facility] 08-15-2024 NotePatient Education Oncology Bladder Cancer Bladder cancer is [...] Follow these instructions at home: ? Take ucgm-bzw-ijznmms and prescription medicines only as told by [...] important. Where to find more information ? [place] [employer] (ACS): cancer.org ? National Cancer Corbett (NCI): cancer.gov Contact a health care provider [...] of treatment based on the stage of yourcancer. ? Consider joining a support group. This may help you learn to deal with the stress of having bladder cancer. This information is not intended to replace advice given to you by your health care provider. Make sure you discuss any q (more content not included)...[facility]07-09-2024 Hospital Discharge instructions Patient Education 09/30/2023 14:07:34 [...] health care provider may recommend screenings for othertypes of cancer if: You had cancer before. [...] stool. For this test, you will need tocollect stool samples at home. Stool DNA test. [...] if anything looks unusual. Men with a jeqmkt-kydh-zyseua risk for skin cancer may want to see a industrial safety and health specialist (astronomy teacher) for an annual body check. What are the benefits of screening? Cancer screening is done to look for cancer in the very early stages, before it spreads and becomesharder to treat and before you would start to notice symptoms. Finding cancer early improves the chances of successful treatment. It may save your life. Where to find more information [place] [employer]: www.cancer.org Centers for Disease Control and Prevention: www.cdc.gov National Cancer Corbett: www.cancer.gov Contact a health care provider if: [...] provider. Document Revised: 08/06/2021 Document Reviewed: 02/04/2020 [employer] Patient Education 2022 [employer]. Follow Up Care 08/08/2023 12:56:50 With:BARB RAMIREZ, Tonia Vasquez, URL Address: [facility] [address] , [place] [phone] When: Unknown Comments:schedule 3 BCGs, cyst in 3 mos [facility] [place] 07-09-2024 NotePatient Education Oncology Cancer Screening for Men A [...] health care provider may recommend screenings for othertypes of cancer if: ? You had cancer [...] blood in stool. It can be done athome with a kit. ? Fecal immunochemical test [...] if anything looks unusual. Men with a ctqvvq-wedw-yrzbho risk for skin cancer may want to see a industrial safety and health specialist (astronomy teacher) for an annual body check. What are the benefits of screening? Cancer screening is done to look for cancer in the very early stages, before it spreads and becomesharder to treat and before you would start to notice symptoms. Finding cancer early improves the chances of success (more content not included)...[facility]07-09-2024 Evaluation + Plan note Diagnostic Tests Pending * UroVysion Fish and Urine Cyto ([facility]) 09/30/23 [facility]04-02-2024 Hospital Discharge instructions Patient Education 06/24/2023 13:20:41 [...] health care provider may recommend screenings for othertypes of cancer if: You had cancer before. [...] stool. For this test, you will need tocollect stool samples at home. Stool DNA test. [...] if anything looks unusual. Men with a fzonmm-qpbm-qvacxh risk for skin cancer may want to see a industrial safety and health specialist (astronomy teacher) for an annual body check. What are the benefits of screening? Cancer screening is done to look for cancer in the very early stages, before it spreads and becomesharder to treat and before you would start to notice symptoms. Finding cancer early improves the chances of successful treatment. It may save your life. Where to find more information [place] [employer]: www.cancer.org Centers for Disease Control and Prevention: www.cdc.gov National Cancer Corbett: www.cancer.gov Contact a health care provider if: [...] provider. Document Revised: 08/06/2021 Document Reviewed: 02/04/2020 [employer] Patient Education 2022 [employer]. Follow Up Care 06/16/2023 14:01:03 With:BARB RAMIREZ, Tonia Vasquez, URL Address: [facility] [address] , [place] [address]- [phone] When: Unknown [facility] [place] 04-02-2024 Evaluation + Plan note Diagnostic Tests Pending * UroVysion Fish and Urine Cyto ([facility]) 06/24/23 [facility]02-20-2024 Hospital Discharge instructions Patient Education 05/13/2023 09:54:46 [...] cells. Follow these instructions at home: Take aaru-eem-ayhabkc and prescription medicines only as told by [...] is important. Where to find more information [place] [employer] (ACS): cancer.org National Cancer Corbett (NCI): cancer.gov Contact a health care provider [...] provider. Document Revised: 02/18/2022 Document Reviewed: 02/18/2022 [employer] Patient Education 2022 [employer]. Follow Up Care 03/28/2023 10:45:13 With:[facility] Address: [address] [place] [address] Business (1) When: Unknown Comments:for procedure as scheduled [facility] 02-12-2024 Hospital Discharge instructions Patient Education 05/05/2023 08:51:28 [...] in the brain or spinal cord (intraventricular orintrathecal chemotherapy). As an installation into the intraperitoneal [...] into a large vein in your chest orupper arm. This may be used for weeks [...] large vein close to your heart (tunneled catheter).This catheter may stay in place for months or years. While you are receiving your chemotherapy medicine, your cancer care team may monitor your blood pressure, heart rate, breathing rate, and blood oxygen level (vital signs) and watch for any problems. Some types of chemotherapy medicine are given only one time. Others are given for months, years, orfor life. What can I expect after treatment? [...] not available, use an alcohol based hand safety fire boss that contains at least 60% alcohol. Have [...] sex while you are taking chemotherapy medicines. Thesemedicines can stay active in your body for [...] 20 seconds after each time you use thetoilet. Keep all follow-up visits. This is important. Eating and drinking Talk with a dietitian about what you should eat and drink during cancer treatment. Always wash fresh fruits and vegetables well before eating them. Drink enough fluid to keep your urine pale yellow. Medicines Take aygf-vfn-ejehqil and prescription medicines only as told by [...] the type of cancer being treated. Take gyza-qmd-cxjzopo and prescription medicines only as told by your health care provider. This information is not intended to replace advice given to you by your health care provider. Make sure you discuss any questions you have with your health care provider. Document Revised: 01/01/2022 Document Reviewed: 01/01/2022 [employer] Patient Education 2022 [employer]. Follow Up Care 03/28/2023 10:43:05 With:BARB RAMIREZ, Tonia Vasquez, URL Address: [facility] [address], [place] [phone] When: Unknown Comments:BCG #3/3 on 05/13/23 [facility] [place] 01-05-2024 Evaluation note* Encounter Date Diagnosis Assessment Notes Treatment Notes Treatment Clinical Notes Mar, Contact with and (suspected) exposure to covid-19 (ICD-10 - Z20.822) Mar, COVID-19 (ICD-10 - U07.1) Discharge Instructions for COVID-19 (Suspected or Confirmed ) material was printed Plenty fluids, get plenty of rest. Continue home medications as prescribed. Take Tylenol or Motrin as needed for aches pains or fevers. Follow-up with your family physician if no improvement in 2 to 3 days [facility] Other 12-11-2023 Hospital Discharge instructions Patient Education [...] cells. Follow these instructions at home: Take hmle-vbr-ztiuxut and prescription medicines only as told by [...] is important. Where to find more information [place] [employer] (ACS): cancer.org National Cancer Corbett (NCI): cancer.gov Contact a health care provider [...] provider. Document Revised: 02/18/2022 Document Reviewed: 02/18/2022 [employer] Patient Education 2022 [employer]. Follow Up Care 01/17/2023 11:24:37 With:BARB RAMIREZ, Tonia Vasquez, URL Address: [facility] [address] , [place] [address]- When: Unknown Comments:After BCG treatments. [facility] 10-27-2023 Hospital Discharge instructions Patient Education [...] cells. Follow these instructions at home: Take vgwn-ekx-mlvbphv and prescription medicines only as told by [...] is important. Where to find more information [place] [employer] (ACS): cancer.org National Cancer Corbett (NCI): cancer.gov Contact a health care provider [...] Document Reviewed: 02/18/2022 [employer] Patient Education 2022 [employer] Follow Up Care 12/12/2022 09:52:31 With:BARB RAMIREZ, Tonia Vasquez, URL Address: [address] [place] [address] [place] [address] When: Unknown [facility] 09-19-2023 Hospital Discharge instructions Patient Education [...] cells. Follow these instructions at home: Take ndfr-zik-dgthtmp and prescription medicines only as told by [...] is important. Where to find more information [place] [employer] (ACS): cancer.org National Cancer Corbett (NCI): cancer.gov Contact a health care provider [...] provider. Document Revised: 02/18/2022 Document Reviewed: 02/18/2022 [employer] Patient Education 2022 [employer] Follow Up Care 10/29/2022 16:25:46 With:BARB RAMIREZ, Tonia Vasquez, ADAM Address: [facility] [address], [place] [address]- [phone] When: Unknown Comments:piter PONCE [facility] 08-01-2023 Hospital Discharge instructions Patient Education 10/22/2022 [...] cells. Follow these instructions at home: Take xtcq-obd-yewguyr and prescription medicines only as told by [...] is important. Where to find more information [place] [employer] (ACS): cancer.org National Cancer Corbett (NCI): cancer.gov Contact a health care provider [...] provider. Document Revised: 02/18/2022 Document Reviewed: 02/18/2022 [employer] Patient Education 2022 [employer] Follow Up Care 09/17/2022 13:12:31 With:BARB RAMIREZ, Tonia Vasquez, URL Address: [address] [place] [address]- When: Unknown [facility] 07-18-2023 Hospital Discharge instructions Patient Education [...] cells. Follow these instructions at home: Take jlyu-mgq-rgktphq and prescription medicines only as told by [...] is important. Where to find more information [place] [employer] (ACS): cancer.org National Cancer Corbett (NCI): cancer.gov Contact a health care provider [...] provider. Document Revised: 02/18/2022 Document Reviewed: 02/18/2022 [employer] Patient Education 2022 [employer] Follow Up Care 08/01/2022 10:02:51 With:BARB RAMIREZ, Tonia Vasquez, URL Address: [address] [place] [address]- When: Unknown [facility] 06-27-2023 Hospital Discharge instructions Patient Education [...] cells. Follow these instructions at home: Take gyiq-wmu-hhlsnym and prescription medicines only as told by [...] is important. Where to find more information [place] [employer] (ACS): cancer.org National Cancer Corbett (NCI): cancer.gov Contact a health care provider [...] provider. Document Revised: 02/18/2022 Document Reviewed: 02/18/2022 [employer] Patient Education 2022 [employer] Follow Up Care 08/01/2022 09:55:17 With:YAHAIRA TADEO PA-C, URL Address: [address] [place] [address] When:Within 1 Week(s) Comments:Piter SILVERIO #4 [facility] 06-20-2023 Hospital Discharge instructions Patient Education [...] cells. Follow these instructions at home: Take rgxc-vxq-dgmbmsr and prescription medicines only as told by [...] is important. Where to find more information [place] [employer] (ACS): cancer.org National Cancer Corbett (NCI): cancer.gov Contact a health care provider [...] provider. Document Revised: 02/18/2022 Document Reviewed: 02/18/2022 [employer] Patient Education 2022 [employer] Follow Up Care 08/01/2022 09:51:36 With:[facility] Address: [address] [place] [address] Business (1) When: Unknown Comments:for procedure as scheduled [facility] [place] 06-13-2023 Hospital Discharge instructions Patient Education 09/03/2022 [...] cells. Follow these instructions at home: Take aslx-lcc-gbvbynm and prescription medicines only as told by [...] is important. Where to find more information [place] [employer] (ACS): cancer.org National Cancer Corbett (NCI): cancer.gov Contact a health care provider [...] provider. Document Revised: 02/18/2022 Document Reviewed: 02/18/2022 [employer] Patient Education 2022 [employer]. [facility] [place] 06-06-2023 Hospital Discharge instructions Patient Education [...] Follow these instructions at home: Medicines Take iari-sov-pdysgnt and prescription medicines only as told by [...] provider. Document Revised: 10/20/2020 Document Reviewed: 10/20/2020 [employer] Patient Education 2022 [employer] [facility] 05-05-2023 Hospital Discharge instructions Patient Education [...] cells. Follow these instructions at home: Take vgip-sos-cnwvlix and prescription medicines only as told by [...] is important. Where to find more information [place] [employer] (ACS): cancer.org National Cancer Corbett (NCI): cancer.gov Contact a health care provider [...] provider. Document Revised: 02/18/2022 Document Reviewed: 02/18/2022 [employer] Patient Education 2022 [employer] Follow Up Care 07/16/2022 10:49:06 With:BARB RAMIREZ, Tonia Vasquez, URL Address: [address] [place] [id number]- When: Unknown [facility] 04-26-2023 NotePROCEDURE: XR CHEST 2 V [...] Electronically authenticated by: NORMA SMALL Date: 2022-07-17 09:32[facility]04-25-2023 Evaluation + Plan noteExtracted from: Title:Urology Progress Note Author:Max DAY MD Date:07/16/22 Impression and Plan Impression: #1. This gentleman's gross hematuria seems to be from multiple bladder tumors. These need to get resected. Plan: #1. We are getting him scheduled to go under anesthesia with paralysis for TURBT, left ureteroscopy, possible laser of bladder tumors and left stent placement. Future Appointments Appointment Date:07/26/2022 08:30:00 AM Scheduled Provider:Tonia DAY MD Location:[facility] Appointment Type:URO Office Visit Appointment Date:01/10/2023 10:45:00 AM Scheduled Provider:Tonia DAY MD Location:[facility] Appointment Type:URO Office Visit Diagnostic Tests Pending * [facility] Urine Cyto ([facility]) 07/16/22 [facility]04-25-2023 Hospital Discharge instructions Patient Education 07/16/2022 [...] degrees. Follow Up Care 06/27/2022 11:11:04 With:Tonia DAY Address: [facility] [address] [place] [address]- Business (1) When: Unknown Comments:Office will call to schedule follow up [facility]03-20-2023 Evaluation note* Encounter Date Diagnosis Assessment [...] Primary osteoarthritis, right shoulder (ICD-10 - M19.011) [facility] Other 01-06-2023 Evaluation note* Encounter Date Diagnosis [...] Dr. Cooper for evaluation and further treatment. [facility] Other 10-17-2022 Hospital Discharge instructions Patient Education [...] if anything looks unusual. Men with a upklli-aosv-goixtf risk for skin cancer may want to see a industrial safety and health specialist (astronomy teacher) for an annual body check. Where to find more information National Cancer [employer]: https://www.cancer.gov/about-cancer/screening Centers for Disease Control and Prevention: https://www.cdc.gov/cancer/dcpc/prevention/screening.htm [place] [employer]: https://www.cancer.org/latest-news/8-nayqjr-phalcovcl-tchrp-ism-yza.html Contact a health care provider if: You [...] 12/05/2016 Document Revised: 11/27/2018 Document Reviewed: 12/05/2016 [employer] Patient Education 2020 [employer]. Follow Up Care 12/04/2020 12:10:49 With:BARB RAMIREZ, Tonia Vasquez, URL Address: [facility] [address] [place] [address] [phone] When:01/07/2023 Comments:TAHMINA [facility] [place] 09-12-2022 Evaluation note* Encounter Date Diagnosis [...] left hamstring, initial encounter (ICD-10 - S76.312A) [facility] Other 08-11-2022 Evaluation note* Encounter Date Diagnosis Assessment Notes Treatment Notes Treatment Clinical Notes Oct, Status post total left knee replacement (ICD-10 - Z96.652) [facility] Other 07-08-2022 Evaluation note* Encounter Date Diagnosis [...] left hamstring, initial encounter (ICD-10 - S76.312A) [facility] Other 05-27-2022 Evaluation note* Encounter Date Diagnosis [...] use of Tylenol as needed for pain. [facility] Other 05-11-2022 Evaluation note* Encounter Date Diagnosis [...] time. Continue icing for his hamstring ecchymosis. [facility] Other 04-27-2022 Evaluation note* Encounter Date Diagnosis [...] and strengthening exercises. Call with questions/concerns . [facility] Other 04-11-2022 Evaluation note* Encounter Date Diagnosis [...] was discussed. I have advised against the prison use of narcotic pain medication. I have [...] M25.562) Jun, Pre-op exam (ICD-10 - Z01.818) [facility] Other 01-31-2022 Evaluation note* Encounter Date Diagnosis [...] pain of left knee (ICD-10 - M25.562) [facility] Other 12-20-2021 Evaluation note* Encounter Date Diagnosis [...] portal. He tolerated this well. Did discuss xkiv-mti-kuqxhgj anti-inflammatory medications and handout has been given. [...] pain of left knee (ICD-10 - M25.562) [facility] Other 11-22-2021 Evaluation note* Encounter Date Diagnosis [...] pain of left knee (ICD-10 - M25.562) [facility] Other 10-20-2021 Evaluation note* Encounter Date Diagnosis [...] as documented in the electronic medical record. [facility] Other 04-07-2011 History general Narrative - Reported* Type Description Date Medical History knee pain Medical History Arthritis Medical History sleeping disorder Surgical History right total knee arthroplasty Surgical History bilateral shoulders [facility] Other 04-07-2011 History general Narrative - Reported* Type Description Date Medical History knee pain Medical History Arthritis Medical History sleeping disorder Medical History acid reflux Surgical History right partial knee arthroplasty 06/28/10 Surgical History bilateral shoulders [facility] Other 04-07-2011 History general Narrative - Reported* Type Description Date Medical History knee pain Medical History Arthritis Medical History sleeping disorder Medical History acid reflux Surgical History right partial knee arthroplasty 06/28/10 Surgical History bilateral shoulders Surgical History LT TKR 07/05/2021 [facility] Other 04-07-2011 History general Narrative - Reported* Type Description Date Medical History knee pain Medical History Arthritis Medical History sleeping disorder Medical History acid reflux Surgical History right partial knee arthroplasty 06/28/10 Surgical History bilateral shoulders Right Cuff Repair Surgical History LT TKR 07/05/2021 [facility] Other 04-07-2011 History general Narrative - Reported* Type Description Date Medical History knee pain Medical History Arthritis Medical History sleeping disorder Medical History acid reflux Surgical History right partial knee arthroplasty 06/28/10 Surgical History bilateral shoulders Right Cuff Repair Surgical History LT TKR 07/05/2021 Surgical History bladder cancer 2022 [facility] Other Evaluation + Plan note Future Appointments Appointment Date:01/10/2023 10:45:00 AM Scheduled Provider:Tonia DAY MD Location:[facility] Appointment Type:URO Office Visit Diagnostic Tests Pending * PSA Total 01/07/22 [facility] evaluation + Plan note Future Appointments Appointment Date:01/10/2023 10:45:00 AM Scheduled Provider:Tonia DAY MD Location:[facility] Appointment Type:URO Office Visit [facility] evaluation + Plan note Future Appointments Appointment Date:09/03/2022 08:45:00 AM Scheduled Provider:YAHAIRA TADEO PA-C Location:[facility] Appointment Type:URO Office Visit Appointment Date:09/10/2022 08:45:00 AM Scheduled Provider:YAHAIRA TADEO PA-C Location:[facility] Appointment Type:URO Office Visit Appointment Date:09/17/2022 08:45:00 AM Scheduled Provider:YAHAIRA TADEO PA-C Location:[facility] Appointment Type:URO Office Visit Appointment Date:10/01/2022 08:45:00 AM Scheduled Provider:YAHAIRA TADEO PA-C Location:[facility] Appointment Type:URO Office Visit Appointment Date:10/08/2022 08:45:00 AM Scheduled Provider:YAHAIRA TADEO PA-C Location:[facility] Appointment Type:URO Office Visit Appointment Date:01/10/2023 10:45:00 AM Scheduled Provider:Tonia DAY MD Location:[facility] Appointment Type:URO Office Visit [facility] evaluation + Plan note Future Appointments Appointment Date:09/03/2022 08:45:00 AM Scheduled Provider:YAHAIRA TADEO PA-C Location:[facility] Appointment Type:URO Office Visit Appointment Date:09/10/2022 08:45:00 AM Scheduled Provider:YAHAIRA TADEO PA-C Location:[facility] Appointment Type:URO Office Visit Appointment Date:09/17/2022 08:45:00 AM Scheduled Provider:YAHAIRA TADEO PA-C Location:[facility] Appointment Type:URO Office Visit Appointment Date:10/01/2022 08:45:00 AM Scheduled Provider:YAHAIRA TADEO PA-C Location:[facility] Appointment Type:URO Office Visit Appointment Date:10/08/2022 08:45:00 AM Scheduled Provider:YAHAIRA TADEO PA-C Location:[facility] Appointment Type:URO Office Visit Appointment Date:01/10/2023 10:45:00 AM Scheduled Provider:Tonia DAY MD Location:[facility] Appointment Type:URO Office Visit Diagnostic Tests Pending * Urine Culture [facility] App[facility]ments Appointment Date:09/10/2022 08:45:00 AM Scheduled Provider:YAHAIRA TADEO PA-C Location:[facility] Appointment Type:URO Office Visit Appointment Date:09/17/2022 08:45:00 AM Scheduled Provider:YAHAIRA TADEO PA-C Location:[facility] Appointment Type:URO Office Visit Appointment Date:10/01/2022 08:45:00 AM Scheduled Provider:YAHAIRA TADEO PA-C Location:[facility] Appointment Type:URO Office Visit Appointment Date:10/08/2022 08:45:00 AM Scheduled Provider:YAHAIRA TADEO PA-C Location:[facility] Appointment Type:URO Office Visit Appointment Date:01/10/2023 10:45:00 AM Scheduled Provider:Tonia DAY MD Location:[facility] Appointment Type:URO Office Visit [facility] evaluation + Plan note Future Appointments Appointment Date:09/17/2022 08:45:00 AM Scheduled Provider:YAHAIRA TADEO PA-C Location:[facility] Appointment Type:URO Office Visit Appointment Date:10/01/2022 08:45:00 AM Scheduled Provider:YAHAIRA TADEO PA-C Location:[facility] Appointment Type:URO Office Visit Appointment Date:10/08/2022 08:45:00 AM Scheduled Provider:YAHAIRA TADEO PA-C Location:[facility] Appointment Type:URO Office Visit Appointment Date:01/10/2023 10:45:00 AM Scheduled Provider:Tonia DAY MD Location:[facility] Appointment Type:URO Office Visit [facility] evaluation + Plan note Future Appointments Appointment Date:10/08/2022 08:45:00 AM Scheduled Provider:YAHAIRA TADEO PA-C Location:[facility] Appointment Type:URO Office Visit Appointment Date:10/14/2022 09:30:00 AM Scheduled Provider:Tonia DAY MD Location:[facility] Appointment Type:URO Office Visit Appointment Date:10/22/2022 08:45:00 AM Scheduled Provider:YAHAIRA TADEO PA-C Location:[facility] Appointment Type:URO Office Visit Appointment Date:01/10/2023 10:45:00 AM Scheduled Provider:Tonia DAY MD Location:[facility] Appointment Type:URO Office Visit [facility] evaluation + Plan note Future Appointments Appointment Date:10/14/2022 09:30:00 AM Scheduled Provider:Tonia DAY MD Location:[facility] Appointment Type:URO Office Visit Appointment Date:10/22/2022 08:45:00 AM Scheduled Provider:YAHAIRA TADEO PA-C Location:[facility] Appointment Type:URO Office Visit Appointment Date:01/10/2023 10:45:00 AM Scheduled Provider:Tonia DAY MD Location:[facility] Appointment Type:URO Office Visit [facility] evaluation + Plan note Future Appointments Appointment Date:12/10/2022 01:30:00 PM Scheduled Provider:Tonia DAY MD Location:[facility] [place] Appointment Type:URO Procedure 15 min Diagnostic Tests Pending * PSA Total [facility]09[facility] App[facility]ments Appointment Date:12/10/2022 01:30:00 PM Scheduled Provider:Tonia DAY MD Location:[facility] Appointment Type:URO Procedure 15 min [facility] evaluation + Plan note Future Appointments Appointment Date:03/03/2023 09:00:00 AM Scheduled Provider:Tonia DAY MD Location:[facility] Appointment Type:URO Office Visit [facility] evaluation + Plan note Future Appointments Appointment Date:05/13/2023 09:00:00 AM Scheduled Provider:YAHAIRA TADEO PA-C Location:[facility] Appointment Type:URO Office Visit [facility] evaluation + Plan note Future Appointments Appointment Date:06/24/2023 01:15:00 PM Scheduled Provider:Tonia DAY MD Location:[facility] Appointment Type:URO Procedure 15 min [facility] evaluation + Plan note Future Appointments Appointment Date:11/13/2023 02:20:00 PM Scheduled Provider:YAHAIRA TADEO PA-C Location:[facility] Appointment Type:URO Office Visit Appointment Date:11/20/2023 02:20:00 PM Scheduled Provider:YAHAIRA TADEO PA-C Location:[facility] Appointment Type:URO Office Visit [facility] evaluation + Plan note Future Appointments Appointment Date:11/20/2023 02:20:00 PM Scheduled Provider:YAHAIRA TADEO PA-C Location:[facility] Appointment Type:URO Office Visit [facility] evaluation noteNo InformationNort [employer] Other Evaluation noteNo assessment information available [facility] Work Phone: evaluation note* Diagnosis Medicare annual wellness visit, subsequent- Primary Prediabetes Other abnormal glucose Screening PSA (prostate specific antigen) Special screening for malignant neoplasm of prostate Encounter for long-term (current) use of medications Encounter for long-term (current) use of other medications Dyslipidemia (CMS/HCC) Other and unspecified hyperlipidemia Malignant neoplasm of urinary bladder, unspecified site (CMS/HCC) documented [facility] Diagnosis Tobacco user- Primary Tobacco use disorder COVID-19 Medicare annual wellness visit, subsequent- Primary Prediabetes Other abnormal glucose Screening PSA (prostate specific antigen) Special screening for malignant neoplasm of prostate Encounter for long-term (current) use of medications Encounter for long-term (current) use of other medications Dyslipidemia (CMS/HCC) Other and unspecified hyperlipidemia Malignant neoplasm of urinary bladder, unspecified site (CMS/HCC) Pneumonia due to infectious organism, unspecified laterality, unspecified part of lung- Primary Chronic obstructive pulmonary disease, unspecified COPD type (CMS/HCC) Cigarette smoker Tobacco use disorder Malignant neoplasm of bladder, unspecified History of abdominal hernia- Primary Cigarette smoker Tobacco use disorder Malignant neoplasm of urinary bladder, unspecified site (CMS/HCC) [facility] Diagnosis Tobacco user- Primary Tobacco use disorder COVID-19 Medicare annual wellness visit, subsequent- Primary Prediabetes Other abnormal glucose Screening PSA (prostate specific antigen) Special screening for malignant neoplasm of prostate Encounter for long-term (current) use of medications Encounter for long-term (current) use of other medications Dyslipidemia (CMS/HCC) Other and unspecified hyperlipidemia Malignant neoplasm of urinary bladder, unspecified site (CMS/HCC) Pneumonia due to infectious organism, unspecified laterality, unspecified part of lung- Primary Chronic obstructive pulmonary disease, unspecified COPD type (CMS/HCC) Cigarette smoker Tobacco use disorder Malignant neoplasm of bladder, unspecified History of abdominal hernia- Primary Cigarette smoker Tobacco use disorder Malignant neoplasm of urinary bladder, unspecified site (CMS/HCC) History of abdominal hernia- Primary Generalized abdominal pain Abdominal pain, generalized documented in this encounter [facility] HealthcareHospital course Narrative No data available for this section [facility] Hospital Discharge instructions No data available for this section [facility] No data available for this section [facility] Summary Purpose Family History Relationship Condition Age at Onset Recorded Date/T george Not Specified Malignant neoplasm of throat Unknown father Malignant neoplasm of prostate Unknown Parkinson's disease Unknown Hypertension Unknown Cardiomegaly Unknown Relationship Condition Age at Onset Recorded Date/T george mother Malignant neoplasm of throat Unknown father Malignant neoplasm of prostate Unknown Parkinson's disease Unknown Hypertension Unknown Cardiomegaly Unknown Advance Directives Advance Directive Response Recorded Date/ Time Advance Directives No November 13, 2020 3:54pm Advance Directive Response Recorded Date/ Time Advance Directives No November 13, 2020 2:54pm Chief Complaint and Reason for Visit Chief Complaint Z96.652 Z96.652 Chief Complaint Radiculopathy Chief Complaint Admit Date Congestion, cough, shortness of breath M arch 2024 1:38pm Chief Complaint Admit Date Congestion, cough, shortness [...] Tendonitis of left rotator cuff July 12:52pm Reason for Referral Reason 06/10/22 @ 10:30 c onsult for right shoulder pain Diagnosis 1 Pain in right should er (M25.511) Referral Organization [facility] Referring Provider First Name Nahid Referring Provider Last Name Trish Referring Provider Specialty Orthopedic Surgery Referred Organization [facility] Referred Provider Mickie Cooper Referred Address [address] [place],[phone] Referred Provider Specialty Orthopedic S urgery Referral Priority Routine Referral Appointment Date 2022-06-10 General Notes Yahaira Moran 10:31:33 AM > received today, sending p2p at this time Yahaira Moran 04/08/2022 10:06:50 AM >patient not scheduled yet Yahaira Moran 04/16/2022 10:37:50 AM >patient not scheduled yet Luisa Yahaira 04/24/2022 10:41:23 AM >patient not scheduled yet [...] section and content) DATE CREATED AUTHOR 08/24/2018 [facility] DATE CREATED AUTHOR AUTHOR'S ORGANIZ ATION 06/25/2022 [facility] DATE CREATED AUTHOR AUTHOR'S ORGANIZ ATION 07/31/2022 [facility] DATE CREATED AUTHOR AUTHOR'S ORGANIZ ATION 03/17/2024 [facility] DATE CREATED AUTHOR AUTHOR'S ORGANIZ ATION 04/05/2024 [facility] DATE CREATED AUTHOR AUTHOR'S ORGANIZ ATION 06/09/2024 [facility] DATE CREATED AUTHOR AUTHOR'S ORGANIZ ATION 07/03/2024 [facility] EPIC DATE CREATED AUTHOR AUTHOR'S ORGANIZ ATION 07/31/2024 [facility] REASON FOR VISIT (unrecogniz ed section [...] Active Mickie Cooper MD Attending Provider Active Equipment Detailer Relationship Specialty Start Date End Date Catracho Willis MD [address] [place] [address] PCP - General Family Medicine 08/20/23 Catracho Willis MD [address] [place] [address] PCP Shantal Amado MA 08/23/23 Equipment Detailer Relationship Specialty Start Date End Date Catracho Willis MD [address] [place] [address] PCP - General Family Medicine 08/20/23 Catracho Willis MD [address] [place] [address] PCP - Aneudy ARANGO 08/23/23 Equipment Detailer Relationship Specialty Start Date End Date Catracho Willis MD [address] [place] [address] PCP - General Family Medicine 08/20/23 Catracho Willis MD [address] [place] [address] PCP Shantal Amaod MA 08/23/23 Equipment Detailer Relationship Specialty Start Date End Date Catracho Willis MD [address] [place] [address] PCP - General Family Medicine 08/20/23 Catracho Willis MD [address] [place] [address] PCP Shantal Amado MA 08/23/23 Team Status: Inactive Member Role Status Dates Catracho Willis MD Primary Care Provider Active S tart: June 03, 2024 End: June 03, 2024 Asha Dacosta APRN Attending Provider Active Start: June 03, 2024 End: June 03, 2024 Equipment Detailer Relationship Specialty Start Date End Date Catracho Willis MD [address] [place] [address] PCP - General Family Medicine 08/20/23 Catracho Willis MD [address] [place] [address] PCP - Aneudy ARANGO 08/23/23 Equipment Detailer Relationship Specialty Start Date End Date Catracho Willis MD [address] [place] [address] PCP - General Family Medicine 08/20/23 Catracho Willis MD [address] [place] [address] PCP - Aneudy ARANGO 08/23/23 Equipment Detailer Relationship Specialty Start Date End Date Catracho Willis MD [address] [place] [address] PCP - General Family Medicine 08/20/23 Catracho Willis MD [address] [place] [address] PCP Shantal Amado MA 08/23/23 Equipment Detailer Relationship Specialty Start Date End Date Catracho Willis MD [address] [place] [address] PCP - General Family Medicine 08/20/23 Team Status: Active Member Role Status Dates Mickie Cooper MD Attending Provider Active Star t: August 17, 2024 Catracho Willis MD Primary Care Provider Active S tart: August 17, 2024 Team Status: Inactive Member Role Status Dates Catracho Willis MD Primary Care Provider Active S tart: August 17, 2024 End: August 17, 2024 Mickie Cooper MD Attending Provider Active Star t: August 17, 2024 End: August 17, 2024 Goals (unrecognized section and content) Goals may [...] BE BASED ON THE PRIMARY CLINICAL RECORDS. [employer] provides no warranty or guarantee of the accuracy or completeness of information in this document.
== END 2024-08-20 08:03 | disposition home or self-care (01) ==
LOC: LAB 08:02
PROVIDERS: PCP Family Medicine; Visit Provider Nurse Practitioner
DX: R10.84 Generalized abdominal pain (principal); Z87.19 Personal history of other diseases of the digestive system; N20.0 Calculus of kidney; N28.1 Cyst of kidney, acquired; K57.90 Diverticulosis of intestine, part unspecified, without perforation or abscess without bleeding
CPT/HCPCS: 36415; 74177; 82565; Q9967

== ENCOUNTER 2024-12-31 09:14 | Outpatient (OUT) | payer MEDICARE, SELFPAY ==
--- OUTSIDE RECORDS SUMMARY | 2024-12-31 09:33 | XMS_ITS | CCD ---
Author Organization [facility] Care Team Providers Care Manufacturing Technology Professor Name Role Phone CATRACHO WILLIS Primary Care UnavailJAMIE Collier Attending Unavailable Nahid Canchola Unavailable Les Paul Unavailable MD Catracho Willis Primary Care Provider [phone] DO Nahid Canchola Attending Provider CATRACHO WILLIS Primary Care Physician MD Catracho Willis Primary Care Provider DO Nahid Canchola Attending Provider MD Catracho Willis Primary Care Provider [phone] DO Nahid Canchola Attending Provider MD Mickie Cooper Attending Provider Mickie Cooper Unavailable DAY ., DR RANDALL Consulting Unavailable DAY ., DR RANDALL Admitting Unavailable LAZARO, DR CATRACHO Coron[place] Primary Care Unavailable DAY ., DR RANDALL Attending Unavailable BROOKE, DR CLARIBEL Vasquez Consulting Unavailable LAZARO, DR CATRACHO [place] Primary Care Unavailable YAHAIRA TADEO Admitting Unavailable YAHAIRA TADEO Attending Unavailable YAHAIRA TADEO Consulting Unavailable DAY ., DR RANDALL Consulting Unavailable DAY ., DR RANDALL Admitting Unavailable LAZARO, DR CATRACHO [place] Primary Care Unavailable DAY ., DR RANDALL Attending Unavailable NAHID CANCHOLA Admitting Unavailable LAZARO, DR CATRACHO [place] Primary Care Unavailable NAHID CANCHOLA Attending Unavailable DAY ., DR RANDALL Attending Unavailable LAZARO, DR CATRACHO [place] Primary Care Unavailable DAY ., DR RANDALL Consulting Unavailable DAY ., DR RANDALL Admitting Unavailable SINAN SANTACRUZ Consulting Unavailable NORMA SMALL Consulting Unavailable DAY ., DR RANDALL Attending Unavailable DAY ., DR RANDALL Admitting Unavailable DAY ., DR RANDALL Consulting Unavailable NADDILIP, DR CATRACHO [place] Primary Care Unavailable DAMEON II, MICKIE Consulting Unavailable FILJESELASHONDA Consulting Unavailable Margaret Hardy Unavailable Catracho Willis MD Primary Care Provider Catracho Willis MD Unavailable YAHAIAR TADEO Attending Unavailable ETHAN, YAHAIRA Hallman Attending Unavailable DAY, Tonia Vasquez Admitting Unavailable DAY, Tonia Vasquez Attending Unavailable DAY, Tonia Vasquez Attending Unavailable ETHAN, YAHAIRA Hallman Attending Unavailable FLAQUITA SEE Attending Unavailable LAZARO, CATRACHO Attending Unavailable LAAZRO, CATRACHO Attending Unavailable DEE FLORES Attending Unavailable Mickie Cooper MD Attending Provider Catracho Willis MD Primary Care Provider BARB, Tonia Vasquez Attending Unavailable DAY, Tonia Vasquez Attending Unavailable DAY, Tonia Vasquez Admitting Unavailable ETHAN, YAHAIRA Hallman Attending Unavailable ETHAN, YAHAIRA Hallman Attending Unavailable DAY, Tonia Vasquez Admitting Unavailable DAY, Tonia Vasquez Attending Unavailable DAY, Tonia Vasquez Attending Unavailable ETHAN, YAHAIRA Hallman Attending Unavailable Catracho Willis MD Primary Care Provider Catracho Willis MD Attending Provider Mickie Cooper MD Attending Provider Catracho Willis Primary Care Unavailable Kenneth, Mickie Attending Unavailable Kenneth, Mickie Admitting Unavailable Olebright, Mickie Attending Unavailable Olexa, Mickie Admitting Unavailable Catracho Willis Primary Care Unavailable Medications Current Medications Medication Drug Class(es) [...] Daily, # 90 tab(s), Refills(s) 3, Pharmacy: [facility], 182, cm, 09/10/22 8:56:00 EDT, Height/Length Dosing, 85, kg, 09/10/22 8:56:00 EDT, Weight Dosing Start Date: 09/10/22 Status: Ordered Start: 04-05-2022 take 1 tablet by brian th once daily Myrbetriq 50 mg oral tablet, extended release 50 mg = 1 tab(s), Oral, Daily, # 30 tab(s), Refills(s) 11, Pharmacy: [facility], 182, cm, 01/07/22 12:37:00 [...] day Active nicotine 2 mg chewing gum (11 sources) Cholinergic Nicotinic Agonist Start: 04-02-2023 nicotine polacrilex (Nicorette) 2 MG gum Indications: Tobacco user Chew 1 piece every 2-4 hours as needed 100 each 1 04/02/2023 Active Roxboro (No Known Home Meds) (2 sources) Start: 12-21-2024 [place] (No Known Home Meds) Active December 21, 2024 12:00am oxybutynin chloride 5 mg oral tablet (12 sources) Cholinergic Muscarinic Antagonist Start: 05-13-2023 End: 05-07-2024 take 1 tablet by mouth at bedtime oxybutynin 5 mg Tab 5 mg = 1 tab(s), Oral, Bedtime, X 30 day(s), # 30 tab(s), Refills(s) 11, Pharmacy: [facility], 182, cm, 05/13/23 9:11:00 [...] for 10 day(s), 20 tab(s), Refill(s) 0, [facility], 182, cm, 03/03/23 9:14:00 EST, Height/Length Dosing, 84, kg, 03/03/23 9:14:00 EST, Weight Dosing Start Date: 03/10/23 Stop Date: 03/20/23 Status: Ordered Start: 08-27-2022 End: 09-03-2022 take 1 tablet by mouth twice daily Bactrim D.S. 800 mg-160 mg Tab 1 tab(s), Oral, BID for 7 day(s), 14 tab(s), Refill(s) 0, [facility], 182, cm, 08/27/22 9:05:00 EDT, Height/Length Dosing, 85, kg, 08/27/22 9:05:00 EDT, Weight Dosing Start Date: 08/27/22 Stop Date: 09/03/22 Status: Ordered Completed/Discontinued Medications Medication Drug Class(es) Dates Sig (Normalized) Sig (Original) [id number] 200 actuat albuterol 0.09 mg/actuat metered dose inhaler (6 sources) beta2-Adrenergic Agonist Start: 06-03-2024 End: 12-20-2024 take 1 puff(s) by inhalation every four hours Albuterol Sulfate 90 mcg/actuation HFA aerosol inhaler Discontinued 2 PUFF INHALATION Q4H 1 June 03, 2024 12:00am December 20, 2024 10:25am amoxicillin 500 mg oral capsule (6 sources) Penicillin-class Antibacterial Start: 05-30-2023 End: 06-03-2024 [...] days Do not fill 07/03/21 Jun, Not-Taking azithromycin 250 mg oral tablet (6 sources) Macrolide Antimicrobial Start: 06-03-2024 End: 12-20-2024 Azithromycin 250 mg tablet Discontinued 0 PO .COMPLEX 6 June 03, 2024 12:00am December 20, 2024 10:25am For 250 mg dose pack: take 500 mg today (day 1), then 250 mg for 4 days (days 2-5) PO benzonatate 100 mg oral capsule (6 sources) Non-narcotic Antitussive Start: 06-03-2024 End: 12-20-2024 take 1 capsule by mouth three times daily Benzonatate 100 mg capsule Discontinued 100 MG PO Three times daily 11 10June 03, 2024 12:00am December 20, 2024 10:25am celecoxib 100 mg oral capsule (4 sources) [...] procedure, # 8 tab(s), Refills(s) 0, Pharmacy: [facility], 182, cm, 01/06/24 14:00:00 EDT, Height/Length Dosing, 85, kg, 01/06/24 14:00:00 EDT, Weight Dosing Start Date: 04/01/24 Status: Ordered Start: 11-05-2022 take 1 tablet by brian th once daily Cipro 500 mg Tab 500 mg = 1 tab(s), Oral, Daily, Take 1 tablet the day before the procedure and 1 tablet after the procedure, # 6 tab(s), Refills(s) 0, Pharmacy: [facility], 182, cm, 10/22/22 9:11:00 EDT, Height/Length Dosing, 84, kg, 10/22/22 9:11:00 EDT,... Start Date: 11/05/22 Status: Ordered Start: 07-26-2022 Cipro 500 mg T ab 500 mg = 1 tab(s), Oral, As Directed, Pt to take 1 tab the day before procedure and the 2nd tab the day of procedure once completed., # 2 tab(s), Refills(s) 0, Pharmacy: [facility], 182, cm, 07/26/22 9:01:00 EDT, Height/Length Dosing, 82, k... Start Date: 07/26/22 Status: Ordered Start: 06-25-2022 take 1 tablet by brian th once daily Cipro 500 mg Tab 500 mg = 1 tab(s), Oral, Daily, Take 1 tablet the day before the procedure and 1 tablet after the procedure, # 2 tab(s), Refills(s) 0, Pharmacy: [facility], 182, cm, 06/05/22 11:46:00 EDT, Height/Length Dosing, 82, kg, 06/05/22 11:46:00 EDT... Start Date: 06/25/22 Status: Ordered clindamycin 300 mg oral capsule (6 sources) Lincosamide Antibacterial Start: 05-29-2023 End: 06-03-2024 [...] Not-Taking diclofenac sodium 0.01 mg/mg topical gel (16 sources) Nonsteroidal Anti-inflammatory Drug Start: 05-18-2021 End: [...] days Do not fill 07/03/21 Jun, Not-Taking methylPREDNISolone 4 mg oral tablet (6 sources) Corticosteroid Start: 06-03-2024 End: 12-20-2024 take 1 tablet by mouth once Methylprednisolone (Medrol (Thien)) 4 mg tablets,dose pack Discontinued 0 PO per package directions June 03, 2024 12:00am December 20, 2024 10:25am PO PER PKG DIR for 6 days Multivitamin Tablet (6 sources) Start: 05-18-2021 End: 06-03-2024 take 1 [...] relations., # 30 tab(s), Refills(s) 3, Pharmacy: [facility], 182, cm, 01/17/23 10:30:00 EDT, Height/Length Dosing, 84, kg, 01/17/23 10:30:00 EDT, Weight Dosing Start Date: 02/17/23 Status: Ordered Quantity: 30.0 Unit: tab(s) Repeat number: 4 Start: 09-21-2021 take 1 tablet by brian [...] period., # 30 tab(s), Refills(s) 3, Pharmacy: [facility], 182, cm, 12/04/20 11:58:0... [...] suspension (20 sources) Corticosteroid Start: 06-10-2022 Kenalog-40 20 May, 2022 40 mg Start: 03-12-2021 Kenalog -40 mg 20 Feb, 2021 40 mg Start: 01-10-2021 Kenalog -40 mg 20 Dec, 2020 40 mg Tylenol Extra Strength 500 MG [...] Date Documented Da te Episodic/Chronic Abdominal pain (8 sources) Generalized abdominal pain; Translations: [Generalized abdominal pain] Onset: 5 08-10-2024 Episodic Anxiety disorders (14 sources) Generalized anxiety disorder; Translations: [Generalized anxiety disorder] Onset: 4 04-02-2023 Chronic Calculus of urinary tract (20 sources) Kidney stone; Translations: [Calculus of kidney] Onset: 3 Episodic Cancer of bladder (20 sources) Malignant tumor of urinary bladder; Translations: [Malignant neoplasm of bladder, unspecified] Onset: 3 Chronic Cancer of bladder (7 sources) History of malignant neoplasm of bladder; Translations: [Personal history of malignant neoplasm of bladder] Onset: 4 Episodic Cancer; other and unspecified primary (13 sources) H/O: malignant neoplasm 06-24-2023 Episodic Chronic obstructive pulmonary disease and bronchiectasis (9 sources) Chronic obstructive lung disease; Translations: [Chronic obstructive pulmonary disease, unspecified] Onset: 5 06-10-2024 Chronic Diabetes mellitus without complication (16 sources) Prediabetes; Translations: [Prediabetes] Onset: 4 12-16-2023 Episodic Disorders of lipid metabolism (5 sources) Dyslipidemia; Translations: [Hyperlipidemia, unspecified] 12-16-2023 Chronic Diverticulosis and diverticulitis (1 source) Diverticulosis of large intestine without perforation or abscess without bleeding; Translations: [DVRTCLOS LG INT NO PERF/ABSC W/O BL] Onset: 3 Chronic Esophageal disorders (20 sources) Gastroesophageal reflux disease without esophagitis; Translations: [Gastro-esophageal reflux disease without esophagitis] Onset: 4 04-02-2023 Chronic Comment on above: Problem List clean-u p per request of Phys. EHR Cmte Outside Source Comme nt: Comment on above: Problem List clean-up per request of Phys. EHR Cmte Genitourinary symptoms and ill-defined conditions (20 sources) Proteinuria; Translations: [Nocturia] Onset: 3 Resolved: 4 09-20-2019 Episodic Hyperplasia of prostate (20 sources) [...] OF BLADDER] Onset: 3 Episodic Nutritional deficiencies (14 sources) Vitamin D deficiency; Translations: [Vitamin D deficiency, unspecified] Onset: 4 04-02-2023 Chronic Osteoarthritis (20 sources) Arthritis of left knee; Translations: [Unilateral primary osteoarthritis, left knee] Onset: 1 Resolved: 2 Chronic Other aftercare (15 sources) Long-term current use of drug therapy; Translations: [Other terminal system operator (current) drug therapy] Onset: 4 12-16-2023 Episodic Other connective tissue disease (10 sources) History of total knee arthroplasty; Translations: [Presence of left artificial knee joint] Chronic Other connective tissue disease (12 sources) Presence of left artificial knee joint; Translations: [PRESENCE LEFT ARTIFICIAL KNEE JOINT] Onset: 2 Resolved: 2 Chronic Other connective tissue disease (14 sources) Pain in left lower limb; Translations: [Pain in left leg] Onset: 4 04-02-2023 Episodic Other connective tissue disease (7 sources) Tendinitis of left rotator cuff; Translations: [Other shoulder lesions, left shoulder] 08-17-2024 Episodic Other connective tissue disease (7 sources) Tear of right rotator cuff; Translations: [Unspecified rotator cuff tear or rupture of right shoulder, not specified as traumatic] 08-17-2024 Episodic Other connective tissue disease (3 sources) Unspecified rotator cuff tear or rupture of right shoulder, not specified as traumatic; Translations: [Rotator cuff (capsule) sprain] Onset: 5 08-17-2024 Episodic Other connective tissue disease (2 sources) Other shoulder lesions, left shoulder; Translations: [Disorders of bursae and tendons in shoulder region, unspecified] 08-17-2024 Episodic Other diseases of bladder and urethra (1 source) Unspecified urethral stricture, male, unspecified site; Translations: [UNSP URETHRAL STRCT MALE UNSP SITE] Onset: 3 Episodic Other gastrointestinal disorders (10 sources) H/O: abdominal hernia; Translations: [Personal history of other diseases of the digestive system] Onset: 5 07-01-2024 Episodic Other lower respiratory disease (2 sources) Unspecified acute lower respiratory infection; Translations: [Other diseases of respiratory system, not elsewhere classified] 06-03-2024 Episodic Other male genital disorders (14 sources) Male erectile dysfunction, unspecified; Translations: [Erectile dysfunction] Onset: 2 Chronic Other male genital disorders (20 sources) Impotence 09-20-2019 Chronic Other nervous system disorders (14 sources) Bilateral carpal tunnel syndrome; Translations: [Carpal tunnel syndrome, bilateral upper limbs] Onset: 4 04-02-2023 Chronic Other non-traumatic joint disorders (14 sources) Multiple joint pain; Translations: [Pain in unspecified joint] Onset: 4 04-02-2023 Episodic Other non-traumatic joint disorders (14 sources) Chronic pain of right upper limb; Translations: [Pain in right shoulder] Onset: 4 04-02-2023 Episodic Other screening for suspected conditions (not mental disorders or infectious disease) (20 sources) Raised prostate specific antigen; Translations: [Elevated prostate specific antigen [PSA]] Onset: 3 Episodic Pneumonia (except that caused by tuberculosis or sexually transmitted disease) (9 sources) Pneumonia; Translations: [Pneumonia, unspecified organism] Onset: 5 06-10-2024 Episodic Residual codes; unclassified (14 sources) Hypersomnia; Translations: [Hypersomnia, unspecified] Onset: 4 [...] HISTORY OTH SPEC CONDITION] Onset: 3 Episodic Residual codes; unclassified (11 sources) Tobacco user; Translations: [Tobacco use] Onset: 4 01-06-2024 Episodic Residual codes; unclassified (1 source) Other specified postprocedural states; Translations: [Other specified postprocedural states] Onset: 5 Episodic Spondylosis; intervertebral disc disorders; other back problems (14 sources) Degeneration of lumbar intervertebral disc; Translations: [Other intervertebral disc degeneration, lumbar region] Onset: 4 04-02-2023 Chronic Spondylosis; intervertebral disc disorders; other back problems (1 source) Radiculopathy, lumbar region Episodic Sprains and strains (7 sources) Sprain of medial collateral ligament of left knee, initial encounter; Translations: [Sprain of medial collateral ligament of left knee, subsequent encounter] Onset: 1 Resolved: 2 Episodic Substance-related disorders (15 sources) Nicotine dependence, cigarettes, uncomplicated; Translations: [Smoker] Onset: 3 04-20-2024 Chronic Comment on above: Added secondary to d ocumentation in Social History. Past or Other Problems Problem Classification Problem Date Documented Da te Episodic/Chronic Joint disorders and dislocations; trauma-related (4 sources) Other tear of medial meniscus, current injury, left knee, initial encounter; Translations: [Other tear of medial meniscus, current injury, left knee, subsequent encounter] Onset: 01-10-2021 Resolved: 04-23-2021 Episodic Mood disorders (10 sources) Mood disorders Onset: 12-16-2023 12-16-2023 Other non-traumatic joint disorders (5 sources) Pain in left knee; Translations: [Acute pain of left knee M25.562] Onset: 01-10-2021 Resolved: 07-02-2021 Episodic Other non-traumatic joint disorders (8 sources) Pain in right shoulder; Translations: [Acute pain of right shoulder] Onset: 08-17-2024 Episodic Unclassified (1 source) Contact with and (suspected) exposure to covid-19 Z20.822 Viral infection (11 sources) Disease caused by 2019-nCoV; Translations: [COVID-19] Onset: 04-02-2023 Resolved: 12-16-2023 12-16-2023 Episodic Viral infection (1 source) COVID-19 Results Test Name Value Interpretation Reference Range Facility X-ray reportOrdered By: Cesario Haywood on 12-21-2024 Study report [facility] [address] [place] [address] XRay Report Signed Patient: Darian Florentino MR#: [id number] : 1955 Acct:[id number] Age/Sex: 69 / M ADM Date: 5 Loc: [facility] Room: Type: [facility] Attending Dr: Mickie Cooper MD Copies to: Mickie Cooper MD~ Ordering Provider: Mickie Cooper MD Date of Service: 12/21/24 XR/XR shoulder RT min 2V*: M75.101 - Unspecified rotator cuff tear or rupture of rig... RIGHT SHOULDER - - 4 views CLINICAL HISTORY: Failed rotator cuff repair. Continued right shoulder pain. COMPARISON: Right shoulder 06/10/2022 FINDINGS: Moderate degenerative changes involving the AC and glenohumeral joints with lossof the subacromial space and moderate to the prior study. No acute bony process. XR/XR shoulder RT min 2V* IMPRESSION: MODERATE DEGENERATIVE CHANGES INVOLVING THE RIGHT SHOULDER WITHOUT ACUTE BONY PROCESS. Impression dictated by: Naun Haywood Jr., D.ODeedee 12/21/2024 4:03 PM Dictation Location: [place] [address] Transcribed By: [facility] 12/21/24 1603 Dictated By: Naun Haywood Jr, DO 12/21/24 1602 Signed By: 12/21/24 1603 [facility] XR shoulder RT min 2V*on XR shoulder RT min 2V* [facility] [address] [place] [address] XRay Report Signed Patient: Darian Florentino MR#: [id number] : 1955 Acct:[id number] Age/Sex: 69 / M ADM Date: 12/21/24 Loc: [facility] Room: Type: [facility] Attending Dr: Mickie Cooper MD Copies to: Mickie Cooper MD Ordering Provider: Mickie Cooper MD Date of Service: 12/21/24 XR/XR shoulder RT min 2V*: M75.101 - Unspecified rotator cuff tear or rupture of rig... RIGHT SHOULDER - - 4 views CLINICAL HISTORY: Failed rotator cuff repair. Continued right shoulder pain. COMPARISON: Right shoulder 06/10/2022 FINDINGS: Moderate degenerative changes involving the AC and glenohumeral joints with loss of the subacromial space and moderate to the prior study. No acute bony process. XR/XR shoulder RT min 2V* IMPRESSION: MODERATE DEGENERATIVE CHANGES INVOLVING THE RIGHT SHOULDER WITHOUT ACUTE BONY PROCESS. Impression dictated by: Naun Haywood Jr., D.ODeedee 12/21/2024 4:03 PM Dictation Location: [place] [address] Transcribed By: [facility] 12/21/24 1603 Dictated By: Naun Haywood Jr, DO 12/21/24 1602 Signed By: 12/21/24 1603 Normal [facility] Reminderson 12-14-2024 Reminders Reminders From: Zee Briones To: [facility] - Recalls Day; Sent: 12/14/2024 15:09:07 EDT Show up: 05/22/2025 15:08:00 EST Subject: cysto/fish/cytol Due Date/Time: 06/20/2025 15:09:00 EDT Reminder/Recall Patient is due in August 2025 for 6 month cysto/fish/cytol, Ck PSA (bt ck) Normal [facility] Reminderson 12-13-2024 Reminders Reminders From: Zee Briones To: [facility] - Recalls Day; Sent: 12/07/2024 09:40:19 EDT Show up: 12/07/2024 09:40:00 EDT Subject: Cysto Reminder/Recall Patient is due in Feb 2025 for 6 month cysto/fish/cytol, bt ck Patient sched for 03/01/25.LG Normal [facility] UroVysion Fish and Urine Cyt o ([facility])on 09-01-2024 UVFISH & UC Diagnosis Info Invalid Interpretation Code [facility] Comment on above: Result Comment: [...] with cytology and cystoscopy results. * CPT: 58618, 18517. Microscopic Notes - Microscopic Notes - Abnormal cells 9p21 deletions: Abnormal cells aneploid events: Total cells analyzed: 200 Hematuria: Gross Description Site ID:A color Yellow fixative Alcohol Received 110 mls of clear yellow fluid with the patient's name and, Bladder Wash on the vial. Electronically signed by : on: 09/01/2024 22:46:55 Performed By: #### 1 [id number] #### [facility] [address] [place] [address] Ambulatory Visit Summaryon 0 08-24-2024 Ambulatory Visit Summary Ambulatory Visit Summary DARIAN FLORENTINO :1955 Visit Date:08/24/2024 Ambulatory Visit Instructions Your Diagnosis History of bladder cancer Erectile dysfunction Your Care Team Attending Physician - BARB RAMIREZ, Tonia Vasquez Primary Care Physician - CATRACHO WILLIS MD This Is Your Medications List Contact prescribing physician if questions or concerns tadalafil (tadalafil 10 mg Tab) Procedures Performed Cystoscopy (08/24/2024), Cystoscopy (04/20/2024), Cystoscopy (01/06/2024), Flexible cystoscope (09/30/2023), [...] (US) guidance. Discharge Vitals Heart Rate (Peripheral) 72 Respiratory Rate 16 Blood Pressure 118/69 What to do next You Need to Schedule the Following Appointments Follow Up with BARB RAMIREZ, ADAM Aranda When: Where: [facility] [address] , [place] [address]- [phone] Medications What How Much When Instructions Unchanged tadalafil (tadalafil 10 mg Tab) 1 Tablets By Mouth Every day as needed for for erectile dysfunction Take 1-2 pills by mouth, 1 hour prior to sexual relations. Contact prescribing physician if questions or concerns Medications and Immunizations Administered Given lidocaine Top 2% Gel w/Appl 6 mL, 6 mL, Topical. For: History of bladder cancer [...] continuing through 75 years old. For males 76???85 years old, the decision to be screened should be based on a person's preferences, life expectancy, overall health, and prior screening history. Your health care provider may adrianna (more content not included)... Normal [facility] UroVysion Fish and Urine Cyt o ( Labs)on 08-24-2024 [facility] Method of Extraction Bladder Wash Normal [facility] Comment on above: Performed By: #### 1 [id number] #### [facility] [address] [place] [address] [facility] Number of Jars 1 Invalid Interpretation Code [facility] Comment on above: Performed By: #### 1 [id number] #### [facility] [address] [place] [address] [facility] Specimen Bladder Wash Normal [facility] Comment on above: Performed By: #### 1 [id number] #### [facility] [address] [place] [address] [facility] Type of Service Technical Only Normal [facility] Comment on above: Performed By: #### 1 [id number] #### [facility] [address] [place] [address] Urology Office/Clinic Noteon 08-24-2024 Urology Office/Clinic Note Urology Office/Clinic Note Chief Complaint Cysto HPI Staff cysto (needs FISH/Cytol) 4 month bt ck History of Present Illness Tests reviewed: op note, FISH/cytol I have reviewed the previous health record information and history for this patient from Dr. Day and MAX Estrada. I have reviewed and verified the staff HPI to be accurate for this encounter. Review of Systems ROS - Provider Constitutional: denies weight loss, [...] & Measurements HR: 72(Peripheral) RR: 16 BP: 118/69 General Appearance: alert, no distress, well nourished, [...] Urethra is: Normal The Prostatic Urethra is: bilobar obstruction The Bladder: No tumors or stones. Minimal red streaking diffusely, presumedly BCG effect. , Trabeculated: Mild (1) The Ureteral orifices: Show [...] calcifications. Path sent for second opinion at [facility] - Neg. Benign urothelial mucosa with LP edema, mild chronic inflammation, and heterotopic calcification. Repeat TURBT 02/20/23 - Neg. Urothelial mucosa with acute inflammation and focal urothelial cytologic atypia. Muscle present and neg. Definitive evidence of residual high grade papillary urothelial carcinoma is not seen. BCG #3/3 05/13/23. BCG #3/3 11/20/23. [1] Last Cysto/cyto/FISH neg 04/20/24. [2] BCG #3/3 07/29/24. Pt had IO cysto to check for bladder tumor recurrence without complications today. Pt took prophylactic abx prior to procedure. Will send bladder wash specimen for FISH/cytol and call pt if positive. Cysto today was negative for recurrence. -Surveillance cysto/FISH/cytol in 6 mos 2. Erectile dysfunction (N52.9: Male erectile dysfunction, unspecified) Tadalafil 10 mg prn. [3] Follow-up With When Contact Information BARB RAMIREZ, Tonia Vasquez, URL [facility] [address] , [place] [phone] Additional Instructions: surveillance cysto/FISH/cytol in 6 mos Patient Education Cancer Screening for Males I, Lisset Paul, personally scribed for Dr. Day on 08/24/2024 13:34:46. . Documentation recorded by the scribe, Lisset Paul, accurately reflects the services(s) I performed and decisions made by me. Authenticated by Dr. Day on 08/24/2024 13:36:05. Problem List/Past Medical History Ongoing Arthritis Bladder cancer BPH (benign prostatic hyperplasia) Elevated PSA Erectile dysfunction Family history of prostate cancer Gastroesophageal reflux disease History of bladder cancer Impotence Kidney stone Nocturia Proteinuria Smoker Split urinary stream Urinary urgency Historical No qualifying data Procedure/Surgical History Cystoscopy (08/24/2024), Cystoscopy (04/20/2024), Cystoscopy (01/06/2024), Flexible cystoscope (09/30/2023), [...] Social History Alcohol - Low Risk, 01/06/2024 (more content not included)... Normal [facility] Comment on above: Result Comment: Elec tronically Signed By: Tonia DAY MD\.br\Date and Time Signed: 08/24/24 13:36 EDT\.br\Electronically Co-Signed By: Lisset Paul.br\Date and Time Co-Signed: 08/24/24 13:[address] [place] [address] CT Scan Report Signed Patient: DARIAN FLORENTINO MR#: [id number] : 1955 Acct:[id number] Age/Sex: 69 / M ADM Date: 08/20/24 Loc: LAB Attending Dr: Dee Flores NP Ordering Physician: Dee Flores NP Date of Service: 08/20/24 Procedure(s): CT abdomen pelvis w con Accession Number(s): [id number] cc: Catracho Willis M.D. [address] [address] Patient Name: DARIAN FLORENTINO MRN: [id number] date: 1955 Sex: M Assigned Patient Location: LAB Current Patient Location: LAB Accession/Order Number: [id number] Exam Date: 08/20/2024 10:04 Report Date: 08/20/2024 10:17 At the request of: DEE FLORES NP Procedure: CT abdomen pelvis w con CT ABDOMEN AND PELVIS WITH CONTRAST CLINICAL DATA: Abdominal pain and burning sensation to the left of the umbilicus. Prior history of hernia. COMPARISON: 06/27/2022 Spiral images were obtained through the abdomen and pelvis following oral and 100 mL of Omnipaque 300. This CT exam was performed using one or more following dose reduction techniques: Automated exposure control, adjustment of the mA and/or kV according to patient size, or use of iterative reconstruction technique. Limited cuts through the lung bases show right lower lobe calcified granuloma. There is decreased attenuation of the hepatic parenchyma in comparison spleen that may be fatty infiltration. A couple subcentimeter hepatic hypodensities are noted. These may be cysts and/or hemangiomas. No calcified gallstones are identified. The spleen, pancreas and adrenal glands show no interval change. There are symmetric renal nephrograms, without hydronephrosis. A stone is again noted at the midpole the right kidney. There are left renal cysts. The largest is exophytic cyst at the midpole measuring approximately 3.6 cm in size, similar to the comparison. There is atherosclerotic plaque involving the aorta and iliac arteries. There are no enlarged nodes or ascites. There is a tiny umbilical hernia containing fat. The small bowel loops are not dilated. Stool is present throughout the colon, greater on the right. There are some left-sided colonic diverticula. Subtle dextroscoliotic curvature and degenerative changes are visualized at the spine. There is also degenerative change with partial ankylosis at the SI joints. Images through the pelvis show normal caliber small bowel loops. No appendiceal inflammation is seen. There is mild distal colonic stool. There are multiple additional sigmoid diverticula, without associated active inflammation. There are calcifications within the prostate. The urinary bladder is not well-distended and the wall appears thickened. No ascites is noted. Mild degenerative changes are visualized at the hips. CT/CT abdomen pelvis w con IMPRESSION: POTENTIAL FATTY LIVER WITH TINY CYSTS AND/OR HEMANGIOMAS. CONTINUED RIGHT NEPHROLITHIASIS. LEFT RENAL CYSTS. NO BOWEL OR URINARY TRACT OBSTRUCTION. DIVERTICULOSIS. UNDER DISTENDED URINARY BLADDER WITH APPARENT WALL THICKENING. NO OTHER ACUTE FINDINGS. Impression dictated by: Apple Lentz M.D. 08/20/2024 10:17 AM Dictation Location: [place] [address] Electronically authenticated by: [id number] Y Date: 08/20/2024 10:17 Dictated By: Apple Lentz M.D. Signed By: 08/20/24 1020 DD/ 1017 TD/TT: Napper Grinder: [facility] Radiology, Radiologist, - 08/20/2024 [place] [address] CT Scan Report Signed Patient: DARIAN FLORENTINO MR#: [id number] : 1955 Acct:[id number] Age/Sex: 69 / M ADM Date: 08/20/24 Loc: LAB Attending Dr: Dee Flores NP Ordering Physician: Dee Flores NP Date of Service: 08/20/24 Procedure(s): CT abdomen pelvis w con Accession Number(s): [id number] cc: Catracho Willis M.D. The [address] [address] Patient Name: DARIAN FLORENTINO MRN: [facility]:[id number] date: 1955 Sex: M Assigned Patient Location: LAB Current Patient Location: LAB Accession/Order Number: [id number] Exam Date: 08/20/2024 10:04 Report Date: 08/20/2024 10:17 At the request of: DEE FLORES NP Procedure: CT abdomen pelvis w con CT ABDOMEN AND PELVIS WITH CONTRAST CLINICAL DATA: Abdominal pain and burning sensation to the left of the umbilicus. Prior history of hernia. COMPARISON: 06/27/2022 Spiral images were obtained through the abdomen and pelvis following oral and 100 mL of Omnipaque 300. This CT exam was performed using one or more following dose reduction techniques: Automated exposure control, adjustment of the mA and/or kV according to patient size, or use of iterative reconstruction technique. Limited cuts through the lung bases show right lower lobe calcified granuloma. There is decreased attenuation of the hepatic parenchyma in comparison spleen that may be fatty infiltration. A couple subcentimeter hepatic hypodensities are noted. These may be cysts and/or hemangiomas. No calcified gallstones are identified. The spleen, pancreas and adrenal glands show no interval change. There are symmetric renal nephrograms, without hydronephrosis. A stone is again noted at the midpole the right kidney. There are left renal cysts. The largest is exophytic cyst at the midpole measuring approximately 3.6 cm in size, similar to the comparison. There is atherosclerotic plaque involving the aorta and iliac arteries. There are no enlarged nodes or ascites. There is a tiny umbilical hernia containing fat. The small bowel loops are not dilated. Stool is present throughout the colon, greater on the right. There are some left-sided colonic diverticula. Subtle dextroscoliotic curvature and degenerative changes are visualized at the spine. There is also degenerative change with partial ankylosis at the SI joints. Images through the pelvis show normal caliber small bowel loops. No appendiceal inflammation is seen. There is mild distal colonic stool. There are multiple additional sigmoid diverticula, without associated active inflammation. There are calcifications within the prostate. The urinary bladder is not well-distended and the wall appears thickened. No ascites is noted. Mild degenerative changes are visualized at the hips. CT/CT abdomen pelvis w con IMPRESSION: POTENTIAL FATTY LIVER WITH TINY CYSTS AND/OR HEMANGIOMAS. CONTINUED RIGHT NEPHROLITHIASIS. LEFT RENAL CYSTS. NO BOWEL OR URINARY TRACT OBSTRUCTION. DIVERTICULOSIS. UNDER DISTENDED URINARY BLADDER WITH APPARENT WALL THICKENING. NO OTHER ACUTE FINDINGS. Impression dictated by: Apple Lentz M.D. 08/20/2024 10:17 AM Dictation Location: [place] [address] Electronically authenticated by: [id number] Y Date: 08/20/2024 10:17 Dictated By: Apple Lentz M.D. Signed By: 08/20/24 1020 DD/ 1017 TD/TT: Napper Grinder: [facility] [employer] Radiology Study observation (narrative) [facility] [employer] CT ABDOMEN PELVIS W CONOrder ed By: Radiologist Radiology on 08-20-2024 [employer] Work Phone: [facility] CREATININEon 08-20-2024 Creatinine [Mass/Vol] 1.02 mg/dL 0.70 - 1.30 mg/dL [facility] [employer] GFR/1.73 sq M.predicted CKD-EPI (S/P/Bld) [Vol rate/Area] >60 >=60 mL/min/1.73m 2 [facility] [employer] TB EGFR-NON AF MACEDONIAN >60 >=60 mL/min/1.73m 2 [facility] [employer] [facility] e X-ray reportOrdered By: Cristi Dwyer on 08-17-2024 Study report [facility] [place] [facility] [facility] [address] [place] [address] XRay Report Signed Patient: Darian Florentino MR#: [id number] : 1955 Acct:[id number] Age/Sex: 69 / M ADM Date: 5 Loc: [facility] Room: Type: [facility] Attending Dr: Mickie Cooper MD Copies to: Mickei Cooper MD~ Ordering Provider: Mickie Cooper MD Date of Service: 08/17/24 XR/XR [...] Dwyer M.D. 08/17/2024 3:43 PM Dictation Location: [place] [address] Transcribed By: [facility] 08/17/241542 Dictated By: Cristi Dwyer II, MD 08/17/24 154 Signed By: 08/17/24 154 [facility] Work Phone: XR shoulder BI min 2Von -2 XR shoulder BI min 2V [facility] [address] [place] [address] XRay Report Signed Patient: Darian Florentino MR#: [id number] : 1955 Acct:[id number] Age/Sex: 69 / M ADM Date: 08/17/24 Loc: [facility] Room: Type: [facility] Attending Dr: Mickie Cooper MD Copies to: Mickie Cooper MD Ordering Provider: Mickie Cooper MD Date of Service: 08/17/24 XR/XR [...] Dwyer M.D. 08/17/2024 3:43 PM Dictation Location: [place] [address] Transcribed By: [facility] 08/17/24 1543 Dictated By: Cristi Dwyer II, MD 08/17/24 1540 Signed By: 08/17/24 1543 Normal [facility] Urology Office/Clinic Noteon 07-30-2024 Urology Office/Clinic Note [...] With When Contact Information [facility] Additional Instructions: For procedure as scheduled. Patient [...] mRNA BNT-162b2 vax 08/11/2020 Recorded Normal [facility] Comment on above: Result Comment: Elec tronically Signed By: YAHAIRA TADEO PA-C\.cristobal\Date and Time Signed: 07/30/24 14:16 EDT Urology [...] 12:17:00 EDT Follow-up With When Contact Information ETHAN VILLALTA, YAHAIRA Hallman, URL In 1 week [address] [place] [address] Additional Instructions: Patient Education Bladder [...] 1 tab(s), Oral, Daily, PRN, 3 refills [place] BCG Live (for intravesical use), 50 mg, [...] vax 08/11/2020 Re (more content not included)... Normal [facility] Comment on above: Result Comment: Elec tronically Signed By: YAHAIRA TADEO PA-C\.br\Date and Time Signed: 07/23/24 12:19 EDT Ambulatory Visit Summaryon 0 07-22-2024 Ambulatory Visit Summary Ambulatory Visit Summary HENRIQUEDARIAN Maury :1955 Visit Date:07/22/2024 Ambulatory Visit Instructions Your [...] do next Scheduled Follow-Up Appointments July. 2024 11:00 AM EDT With: YAHAIRA TADEO PA-C Where: [facility] [address] [place] [address] [place] [address]- Friday 1:15 PM EDT With: Tonia DAY MD Where: [facility] of [address] [place] [address]- Medications What How Much When Instructions Unchanged [...] for choosing us for your care. Normal [facility] Ambulatory Visit Summaryon 0 07-15-2024 Ambulatory Visit [...] YAHAIRA TADEO PA-C Where: [facility] [address] [place] [address]- 2024 11:00 AM EDT With: YAHAIRA TADEO PA-C Where: [facility] [address] [facility] [place] [address]- Friday 1:15 PM EDT With: BARB RAMIREZ, Tonia Vasquez Where: [facility] [place] [address] [place] [address]- You Need to Schedule the Following Appointments Follow Up with ETHAN VILLALTA, ADAM ECKERT When: In 1 week Where: [address] [place] [place] [address] Medications What How Much When [...] involves p (more content not included)... Normal [facility] Urology Office/Clinic Noteon 07-15-2024 Urology [...] Urnls Dip Stick Auto w/o Microscopy POC [address]3065 Orders: ciprofloxacin, 500 mg = 1 tab(s), Oral, Daily, Take 1 tablet the day before the procedure and 1 tablet after the procedure, # 8 tab(s), Refills(s) 0, Pharmacy: [facility], 182, cm, 01/06/24 14:00:00 EDT, Height/Length Dosing, 85, kg, 01/06/24 14:00:00 EDT... Follow-up With When Contact Information YAHAIRA TADEO PA-C, URL In 1 week [address] [place] [address] Additional Instructions: Patient Education Bladder [...] Late doc (more content not included)... Normal [facility] Comment on above: Result Comment: Elec tronically Signed By: YAHAIRA TADEO PA-C\Date and Time Signed: 07/15/24 12:[address] LUNG SCREENING LOW DOSEon 06-24-2024 [place] [address] CT Scan Report Signed Patient: DARIAN FLORENTINO MR#: [id number] : 1955 Acct:[id number] Age/Sex: 69 / M ADM Date: 06/24/24 Loc: CT Attending Dr: Catracho Willis M.D. Ordering Physician: Catracho Willis M.D. Date of Service: 06/24/24 Procedure(s): CT lung screening low-dose Accession Number(s): [id number] cc: Catracho Willis M.D. [place] [address] Patient Name: DARIAN FLORENTINO MRN: [facility]:[id number] date: 1955 Sex: M Assigned Patient Location: CT Current Patient Location: CT Accession/Order Number: [id number] Exam Date: 06/24/2024 12:16 Report Date: 06/24/2024 [...] Apple Lentz M.D.06/24/2024 12:28 PM Dictation Location: [place] [address] Electronically authenticated by: [id number] Date: 06/24/2024 12:28 Dictated By: Apple Lentz M.D. Signed By: 06/24/24 1230 DD/ 1228 TD/TT: Napper Grinder: [facility] Radiology, Radiologist, - 06/24/2024 [place] [address] CT Scan Report Signed Patient: DARIAN FLORENTINO MR#: [id number] : 1955 Acct:[id number] Age/Sex: 69 / M ADM Date: 06/24/24 Loc: CT Attending Dr: Catracho Willis M.D. Ordering Physician: Catracho Willis M.D. Date of Service: 06/24/24 Procedure(s): CT lung screening low-dose Accession Number(s): [id number] cc: Catracho Willis M.D. [place] [id number] Patient Name: DARIAN FLORENTINO MRN: [facility]:[id number] date: 1955 Sex: M Assigned Patient Location: CT Current Patient Location: CT Accession/Order Number: [id number] Exam Date: 06/24/2024 12:16 Report Date: 06/24/2024 [...] Apple Lentz M.D.06/24/2024 12:28 PM Dictation Location: [place] [address] Electronically authenticated by: [id number] Y Date: 06/24/2024 12:28 Dictated By: Apple Lentz M.D. Signed By: 06/24/24 1230 DD/ 1228 TD/TT: Napper Grinder: [facility] Radiology Study observation (narrative) [facility] CT LUNG SCREENING LOW DOSEOr dered By: Radiologist Radiology on 06-24-2024 [facility] [employer] Work Phone: COVID Cepheidon 06-03-2024 SARS-CoV-2 (COVID-19) RNA VIC+probe Ql (Unsp spec) COVID Cepid [facility] - Microbiology an d Antimicrobial susceptibilityon 06-03-2024 SARS-CoV-2 (COVID-19) RNA VIC+probe Ql (Unsp spec) Negative [facility] No Panel Informationon 06-03 POC Influenza A (PCR) Negative [facility] POC Influenza B (PCR) Negative [facility] MHPT PSA, DIAGNOSTICon 05-31 PROSTATE SPECIFIC ANTIGEN DX 1.28 ng/mL NINF - 4.00 ng/mL [facility] UroVysion Fish and Urine Cyt o ([facility])on 04-28-2024 UVFISH & UC Diagnosis Info Invalid Interpretation Code [facility] Comment on above: Result Comment: [...] with cytology and cystoscopy results. * CPT: 02008, 02079. Microscopic Notes - Microscopic Notes - Abnormal cells 9p21 deletions: Abnormal cells aneploid events: Total cells analyzed: 26 Hematuria: Gross Description Site ID:A color Yellow fixative Alcohol Received 100 mls of clear yellow fluid with the patient's name and, Bladder Wash on the vial. Electronically signed by : on: 04/28/2024 08:58:54 Performed By: #### 1 [id number] ####[facility] [address] [place] [address] Ambulatory Visit Summaryon 0 04-20-2024 Ambulatory Visit [...] [facility] [address] , [place] [address]- Medications What How Much When Instructions Unchanged [...] and co (more content not included)... Normal [facility] UroVysion Fish and Urine Cyt o ([facility])on 04-20-2024 [facility] Method of Extraction Bladder Wash Normal [facility] Comment on above: Performed By: #### 1 [id number] ####[facility] [address] [place] [address] [facility] Number of Jars 1 Invalid Interpretation Code [facility] Comment on above: Performed By: #### 1 [id number] ####[facility] [address] [place] [address] [facility] Specimen Bladder Wash Normal [facility] Comment on above: Performed By: #### 1 [id number] ####[facility] [address] [place] [address] [facility] Type of Service Technical Only Normal [facility] Comment on above: Performed By: #### 1 [id number] ####[facility] [address] [place] [address] Urology Office/Clinic Noteon 04-20-2024 Urology Office/Clinic Note [...] calcifications. Path sent for second opinion at [facility] - Neg. Benign urothelial mucosa with [...] Tonia Vasquez, URL [facility] [address] [place] [address]- Additional Instructions: Schedule BCG x 3 to [...] refills tadal (more content not included)... Normal [facility] Comment on above: Result Comment: Elec tronically Signed By: Tonia DAY MD\.br\Date and Time Signed: 04/20/24 15:04 EST\.br\Electronically Co-Signed By: Betzaida David P\.br\Date and Time Co-Signed: 04/20/24 15:01 EST UroVysion Fish and Urine Cyt o ([facility])on 01-12-2024 UVFISH & UC Diagnosis Info Invalid Interpretation Code [facility] Comment on above: Result Comment: [...] with cytology and cystoscopy results. * CPT: 09929, 52796. MicroScopic Description - MicroScopic Description - Electronically signed by : on: 01/12/2024 13:43:52 Performed By: #### 1 [id number] #### [facility] [address] [place] [address] UroVysion Fish and Urine Cyt o ( Labs)on 01-06-2024 [facility] Method of Extraction Bladder Wash Normal [facility] Comment on above: Performed By: #### 1 [id number] #### [facility] [address] [place] [address] [facility] Number of Jars 1 Invalid Interpretation Code [facility] Comment on above: Performed By: #### 1 [id number] #### [facility] [address] [place] [address] [facility] Specimen Bladder Wash Normal [facility] Comment on above: Performed By: #### 1 [id number] #### [facility] [address] [place] [address] [facility] Type of Service Technical Only Normal [facility] Comment on above: Performed By: #### 1 [id number] #### [facility] [address] [place] [address] Urology Office/Clinic Noteon 01-06-2024 Urology Office/Clinic Note [...] calcifications. Path sent for second opinion at [facility] - Neg. Benign urothelial mucosa with [...] cause of ED. Pt inquired about more homeopathic/experimen casey options for ED so he can avoid taking traditional oral meds. Recommended sticking to traditional approved therapies. Not interested in trying any other therapies at this time. Follow-up With When Contact Information BARB RAMIREZ, Tonia Vasquez, URL [facility] [address], [place] [address]- Additional Instructions: 3 mos surveillance cysto/bt ck/FISH/cytol [...] tumor (01/09/2023), (more content not included)... Normal [facility] Comment on above: Result Comment: Elec tronically Signed By: Tonia DAY MD\.br\Date and Time Signed: 01/06/24 14:23 EDT\.br\Electronically Co-Signed By: Betzaida David\.br\Date and Time Co-Signed: 01/06/24 14:20 EDT\.br\Electronically Co-Signed By: Betzaida David\.br\Date and Time Co-Signed: 01/06/24 14:21 EDT ALL CBC WITH AUTO DIFFon BASOPHILS ABSOLUTE AUTO 0.0 [facility] Basophils/100 WBC (Bld) 0.1 % Low 0.2 - 2.0 % [facility] Eosinophils/100 WBC (Bld) 0.1 % Low 0.9 - 7.0 % [facility] Erythrocyte distribution width (RBC) [Ratio] 13.1 % 11.0 - 15.0 % [facility] Hematocrit (Bld) [Volume fraction] 48.8 % 42.0 - 54.0 % [facility] Hemoglobin (Bld) [Mass/Vol] 16.0 g/dL 14.0 - 18.0 g/dL [facility] IMMATURE GRANULOCYTES ABS AUTO 0.03 [facility] Immature granulocytes/100 WBC (Bld) 0.4 % 0.0 - 0.5 % [facility] Interpretation and review of laboratory results Abnormal [facility] LYMPHOCYTES ABSOLUTE AUTO 1.9 [facility] Lymphocytes/100 WBC (Bld) 26.1 % 20.5 - 60.0 % [facility] MCH (RBC) [Entitic mass] 30.9 pg 25.9 - 34.0 pg [facility] MCHC (RBC) [Mass/Vol] 32.8 g/dL 29.9 - 35.2 g/dL [facility] MCV (RBC) [Entitic vol] 94.4 fL High 80.0 - 94.0 fL [facility] MONOCYTES ABSOLUTE AUTO 0.6 [facility] Monocytes/100 WBC (Bld) 7.9 % 1.7 - 12.0 % [facility] NEUTROPHILS ABSOLUTE AUTO 4.[address] [facility] Neutrophils/100 WBC (Bld) 65.4 % 43.0 - 75.0 % [facility] Platelet mean volume (Bld) [Entitic vol] 10.4 fL 9.5 - 13.5 fL [facility] EO # 0.0 [facility] PLT 243 [facility] RBC 5.17 [facility] WBC 7.1 [facility] U[facility] Office/Clinic Noteon 11-20-2023 Urology Office/Clinic Note [...] BCG today due to national shortage. EORTC 75786 trial showed no difference between 1/3 dose and full-dose BCG in patients with high-risk disease. Pt is aware of the reasoning and is amenable to proceed as discussed. -Schedule surveillance cysto for 12/2023 Follow-up With When Contact Information BARB RAMIREZ, Tonia Vasquez, URL [facility] [address], [place] [phone] Additional Instructions: sched surveillance cysto 12/2023 Patient Education Chemotherapy Documentation recorded by the nolan Paul accurately reflects the services(s) I performed and decisions made by me. Authenticated by Yahaira Tadeo PA-C on 11/20/2023 15:07:28. ILisset, personally scribed for Yahaira Tadeo PA-C on [...] refusal BCG (more content not included)... Normal [facility] Comment on above: Result Comment: Elec tronically Signed By: YAHAIRA TADEO PA-C\.br\Date and Time Signed: 11/20/23 15:07 EDT\.br\Electronically Co-Signed By: Lisset Paul\.br\Date and Time Co-Signed: 11/20/23 15:06 EDT Ambulatory Visit Summaryon 0 11-13-2023 Ambulatory Visit Summary Ambulatory Visit Summary HENRIQUEDARIAN Maury :1955 Visit Date:11/13/2023 Ambulatory Visit Instructions Your [...] YAHAIRA TADEO PA-C Where: [facility] [address] [place] [address]- You Need to Schedule the Following Appointments Follow Up with YAHAIRA TADEO PA-C, URL When: Comments: BCG #3 of 3 in 1 week Where: [address] [place] [address] Medications What How Much When [...] BCG today due to national shortage. EORTC 13910 trial showed no difference between 1/3 dose and full-dose BCG in patients with high-risk disease. Pt is aware of the reasoning and is amenable to proceed as discussed. -BCG #3 of 3 half dose in 1 week -Cysto in 3 mos, after BCG treatment Follow-up With When Contact Information ETHAN VILLALTA, YAHAIRA Hallamn, URL [address] [facility] [place] [address] Additional Instructions: BCG #3 of 3 in 1 week Patient Education Cancer Screening for Men Documentation recorded by the nolan Greenwood accurately reflects the services(s) I performed and decisions made by me. Authenticated by Yahaira Tadeo PA-C on 11/13/2023 15:04:58. Zheng Smallwood, personally scribed for Yahaira Tadeo PA-C [...] concerns: No. (more content not included)... Normal [facility] Comment on above: Result Comment: [...] YAHAIRA TADEO PA-C Where: [facility] [address] [address] 2023 2:20 PM EDT With: YAHAIRA TADEO PA-C Where: [facility] [address] [address]- You Need to Schedule the Following Appointments Follow Up with YAHAIRA TADEO PA-C, URL When: Comments: 1 week for BCG #2 of 3 half dose Where: [address] [place] [place] [address] Medications What How Much When [...] cyst (more content not included)... Normal [facility] Urology Office/Clinic Noteon 11-06-2023 Urology [...] BCG today due to national shortage. EORTC 30972 trial showed no difference between 1/3 dose and full-dose BCG in patients with high-risk disease. Pt is aware of the reasoning and is amenable to proceed as discussed. -BCG #2 of 3 half dose in 1 week -Cysto in 3 mos, after BCG treatment Follow-up With When Contact Information ETHAN VILLALTA, YAHAIRA Hallman, URL [address] [place] [address] Additional Instructions: 1 week for [...] (US) zabrina (more content not included)... Normal [facility] Comment on above: Result Comment: Elec tronically Signed By: YAHAIRA TADEO PA-C\.br\Date and Time Signed: 11/06/23 14:53 EDT\.br\Electronically Co-Signed By: Zheng Greenwood\.br\Date and Time Co-Signed: 11/06/23 14:52 EDT [facility] Cyt [facility] ([facility])on 10-06-2023 UVFISH & UC Diagnosis Info Invalid Interpretation Code [facility] Comment on above: Result Comment: [...] on: 10/06/2023 17:48:05 Performed By: #### 1 [id number] #### [facility] [address] [place] [address] [facility] Fish [facility] Urine Cyt [facility] ([facility])on 09-30-2023 UVUC Method of Extraction Bladder Wash Normal [facility] Comment on above: Performed By: #### 1 [id number] #### [facility] [address] [place] [address] [facility] Number of Jars 1 Invalid Interpretation Code [facility] Comment on above: Performed By: #### 1 [id number] #### [facility] [address] [place] [address] [facility] Specimen Bladder Wash Normal [facility] Comment on above: Performed By: #### 1 [id number] #### [facility] [address] [place] [address] [facility] Type of Service Global Normal Fish er [facility] Comment on above: Performed By: #### 1 [id number] #### [facility] [address] [place] [address] COVID + FLU Quick Testingon 03-28-2023 SARS-CoV-2 (COVID-19) RNA VIC+probe Ql (Unsp spec) Positive [facility] Other COVID + FLU Quick Testing Negative [facility] Other CBC AUTO DIFFon 07-17-2022 BASO # 0.0 103/ul Normal 0.0-0.1 [facility] Comment on above: Performed By: #### C BC #### [facility] [address] [place] [address] Dr. Viktoria Nuñez Basophils/100 WBC (Bld) 0.3 % Normal 0.2-2.0 [facility] Comment on above: Performed By: #### C BC #### [facility] [address] [place] [address] Dr. Viktoria Nuñez EO # 0.0 103/ul Normal 0.0-0.7 [facility] Comment on above: Performed By: #### C BC #### [facility] [address] [place] [address] Dr. Viktoria Nuñez Eosinophils/100 WBC (Bld) 0.0 % Critically low 0.9-7.0 [facility] Comment on above: Performed By: #### C BC #### [facility] [address] [place] [address] Dr. Viktoria Nuñez Erythrocyte distribution width (RBC) [Ratio] 13.2 % Normal 11.0-15.0 [facility] Comment on above: Performed By: #### C BC #### [facility] [address] [place] [address] Dr. Viktoria Nuñez Hematocrit (Bld) [Volume fraction] 47.3 % Normal 42.0-54.0 [facility] Comment on above: Performed By: #### C BC #### [facility] [address] [place] [address] Dr. Viktoria Nuñez Hemoglobin (Bld) [Mass/Vol] 15.7 g/dL Normal 14.0-18.0 [facility] Comment on above: Performed By: #### C BC #### [facility] [address] [place] [address] Dr. Viktoria Nuñez IG # 0.03 10e3/ul Normal 0.00-0.03 [facility] Comment on above: Performed By: #### C BC #### [facility] [address] [place] [address] Dr. Viktoria Nuñez IG % 0.4 % Normal 0.0-0.5 [facility] Comment on above: Performed By: #### C BC #### [facility] [address] [place] [address] Dr. Viktoria Nuñez LYMPH # 1.4 103/ul Normal 1.2-3.8 [facility] Comment on above: Performed By: #### C BC #### [facility] [address] [place] [address] Dr. Viktoria Nuñez Lymphocytes/100 WBC (Bld) 18.6 % Critically low 20.5-60.0 [facility] Comment on above: Performed By: #### C BC #### [facility] [address] [place] [address] Dr. Viktoria Nuñez MANUAL DIFF REQ NO Normal [facility] Comment on above: Performed By: #### C BC #### [facility] [address] [place] [address] Dr. Viktoria Nuñez MCH (RBC) [Entitic mass] 30.7 pg Normal 25.9-34.0 [facility] Comment on above: Performed By: #### C BC #### [facility] [address] [place] [address] Dr. Viktoria Nuñez MCHC (RBC) [Mass/Vol] 33.2 g/dL Normal 29.9-35.2 [facility] Comment on above: Performed By: #### C BC #### [facility] [address] [place] [address] Dr. Viktoria Nuñez MCV (RBC) [Entitic vol] 92.4 fL Normal 80.0-94.0 [facility] Comment on above: Performed By: #### C BC #### [facility] [address] [place] [address] Dr. Viktoria Nuñez MONO # 0.6 103/ul Normal 0.3-0.8 [facility] Comment on above: Performed By: #### C BC #### [facility] [address] [place] [address] Dr. Viktoria Nuñez Monocytes/100 WBC (Bld) 7.6 % Normal 1.7-12.0 [facility] Comment on above: Performed By: #### C BC #### [facility] [address] [place] [address] Dr. Viktoria Nuñez NEUT # 5.4 103/ul Normal 1.4-6.5 [facility] Comment on above: Performed By: #### C BC #### [facility] [address] [place] [address] Dr. Viktoria Nuñez Neutrophils/100 WBC (Bld) 73.1 % Normal 43.0-75.0 [facility] Comment on above: Performed By: #### C BC #### [facility] [address] [place] [address] Dr. Viktoria Nuñez Platelet mean volume (Bld) [Entitic vol] 10.1 fL Normal 9.5-13.5 [facility] Comment on above: Performed By: #### C BC #### [facility] [address] [place] [address] Dr. Viktoria Nuñez PLT 235 103/ul Normal 150-450 [facility] Comment on above: Performed By: #### C BC #### [facility] [address] [place] [address] Dr. Viktoria Nuñez RBC 5.12 106/ul Normal 4.70-6.10 [facility] Comment on above: Performed By: #### C BC #### [facility] [address] [place] [address] Dr. Viktoria Nuñez WBC 7.4 103/ul Normal 4.0-11.0 [facility] Comment on above: Performed By: #### C BC #### [facility] [address] [place] [address] Dr. Viktoria Nuñez PROF CHEM 8 (BAS METB)on Anion gap [Moles/Vol] 12.2 mmol/L Normal [facility] Comment on above: Performed By: #### B MP #### [facility] [address] [place] [address] Dr. Viktoria Nuñez Calcium [Mass/Vol] 9.6 mg/dL Normal 8.5-10.1 [facility] Comment on above: Performed By: #### B MP #### [facility] [address] [place] [address] Dr. Viktoria Nuñez Chloride [Moles/Vol] 107 mmol/L Normal 98-107 [facility] Comment on above: Performed By: #### B MP #### [facility] [address] [place] [address] Dr. Viktoria Nuñez CO2 [Moles/Vol] 27.9 mmol/L Normal 21.0-32.0 [facility] Comment on above: Performed By: #### B MP #### [facility] [address] [place] [address] Dr. Viktoria Nuñez Creatinine [Mass/Vol] 1.15 mg/dL Normal 0.70-1.30 [facility] Comment on above: Performed By: #### B MP #### [facility] [address] [address] [address] Viktoria Nuñez EGFR-AF MACEDONIAN >60 Normal >=60 [facility] Comment on above: Performed By: #### B MP #### [facility] [address] [address] [address] Viktoria Nuñez EGFR-NON AF MACEDONIAN >60 Normal >=60 [facility] Comment on above: Performed By: #### B MP #### [facility] [address] [address] [address] Viktoria Nuñez Glucose [Mass/Vol] 110 mg/dL Critically high 74-106 T [facility] Comment on above: Performed By: #### B MP #### [facility] [address] [place] [address] Dr. Viktoria Nuñez Potassium [Moles/Vol] 4.1 mmol/L Normal 3.5-5.1 [facility] Comment on above: Performed By: #### B MP #### [facility] [address] [address] [address] Viktoria Nuñez Sodium [Moles/Vol] 143 mmol/L Normal 136-145 [facility] Comment on above: Performed By: #### B MP #### [facility] [address] [place] [address] Dr. Viktoria Nuñez Urea nitrogen [Mass/Vol] 20.0 mg/dL Critically high 7.0-18.0 [facility] Comment on above: Performed By: #### B MP #### [facility] [address] [place] [address] Dr. Viktoria Nuñez Urea nitrogen/Creatinine [Mass ratio] 17.4 mg/mg Normal [facility] Comment on above: Performed By: #### B MP #### [facility] [address] [place] [address] Dr. Viktoria Nuñez PROTIMEon 07-17-2022 INR Coag (PPP) [Relative time] 1.03 {INR} Normal [facility] Comment on above: Performed By: #### P T, PTT #### [facility] [address] [place] [address] Dr. Viktoria Nuñez INR GUIDELINES SEE BELOW Normal [facility] Comment on above: Result Comment: RODDY RED INR: 2.0 - 3.0 CONDITIONS NOT LISTED BELOW 2.5 - 3.5 FOR PROSTHETIC HEART VALVE REPLACEMENT 2.5 - 3.5 RECURRENT THROMBOSIS Performed By: #### P T, PTT #### [facility] [address] [place] [address] Dr. Viktoria Nuñez PT Coag (PPP) [Time] 10.9 s Normal 9.0-11.6 [facility] Comment on above: Performed By: #### P T, PTT #### [facility] [address] [place] [address] Dr. Viktoria Nuñez PTTon 07-17-2022 aPTT Coag (Bld) [Time] 28.0 s Normal 22.3-36.2 [facility] Comment on above: Performed By: #### P T, PTT #### [facility] [address] [place] [address] Dr. Viktoria Nuñez CREATININEon 06-27-2022 Creatinine [Mass/Vol] 0.96 mg/dL Normal 0.70-1.30 [facility] Comment on above: Performed By: #### C CHRISTOPHER #### [facility] [address] [place] [address] Dr. Viktoria Nuñez EGFR-AF MACEDONIAN >60 Normal >=60 [facility] Comment on above: Performed By: #### C CHRISTOPHER #### [facility] [address] [place] [address] Dr. Viktoria Nuñez EGFR-NON AF MACEDONIAN >60 Normal >=60 [facility] Comment on above: Performed By: #### C CHRISTOPHER #### [facility] [address] [place] [address] [address] Nuñez [address] ABD/PELV WO W [...] by: CLARIBEL COX Date: 2022-06-27 09:55 Normal [facility] XR knee LT 2Von 12-03-2021 XR knee LT 2V [facility] [employer] Other XR knee LT 2V [facility] [employer] Other XR knee LT 2V [address] [facility] [employer] Other [place]R [place] [address] [address] [facility] [employer] Other XR knee LT 2V XRay Report [facility] [employer] Other XR knee LT 2V Signed Gary [employer] Other XR knee LT 2V Patient: Chris Florentino MR#: [id number] [employer] Other XR knee LT 2V 65 [employer] Other XR knee LT 2V : 1955 Acct:[id number] [employer] Other XR knee LT 2V Age/Sex: 66 / M ADM Date: 12/03/21 [employer] Other XR knee LT 2V Loc: [facility]XD Room: Type : REG CLI [employer] Other XR knee LT 2V Attending Dr: Nahid Canchola DO [employer] Other XR knee LT 2V Copies to: Nahid Canchola DO [employer] Other XR knee LT 2V Ordering Provider: Nahid Canchola DO [employer] Other XR knee LT 2V Date of Service: 12/03/21 [employer] Other XR knee LT 2V XR/XR knee LT 2V: Status post total left knee replacement [employer] Other XR knee LT 2V LEFT KNEE - 2 views No rt [employer] Other XR knee LT 2V CLINICAL HISTORY: Follow-up TKA [employer] Other XR knee LT 2V COMPARISON: 07/05/2021 [employer] Other XR knee LT 2V FINDINGS: [employer] Other XR knee LT 2V No hardware complication. [employer] Other XR knee LT 2V XR/XR knee LT 2V [employer] Other XR knee LT 2V IMPRESSION: [employer] Other XR knee LT 2V NO HARDWARE COMPLICATION. NO ACUTE BONY PROCESS. [employer] Other XR knee LT 2V Impression dictated by: Naun Haywood Jr., DTraci12/03/2021 3:33 PM [employer] Other XR knee LT 2V Dictation Location: [address] [employer] Other XR knee LT 2V Transcribed By: PWS 12/03/21 [facility] [employer] Other XR knee LT 2V Dictated By: Naun Haywood Jr DO 12/03/21 [facility] [employer] Other XR knee LT 2V Signed By: [employer] Other XR knee LT 2V 12/03/21 [facility] [employer] Other Vital Signs Date Time Vital Sign Value Performing Clinician Facility 12-21-2024 10:34-0400 Body height 182.88 cm Catracho Willis MD Work Phone: [facility] 12-21-2024 10:34-0400 Body mass index (BMI) [Ratio] 24.8 kg/m2 Catracho Willis MD Work Phone: [facility] 12-21-2024 10:34-0400 Body weight 83 kg Catracho Willis MD Work Phone: [facility] 12-21-2024 10:34-0400 Heart rate 72 /min Catracho Willis MD Work Phone: [facility] 12-21-2024 10:34-0400 SaO2% (BldA) [Mass fraction] 99 % Catracho Willis MD Work Phone: [facility] 12-20-2024 10:24-0400 Body height 182.88 cm Catracho Willis MD Work Phone: [facility] 12-20-2024 10:24-0400 Body mass index (BMI) [Ratio] 24.8 kg/m2 Catracho Willis MD Work Phone: [facility] 12-20-2024 10:24-0400 Body temperature 97.8 [degF] Catracho Willis MD Work Phone: [facility] 12-20-2024 10:24-0400 Body weight 83 kg Catracho Willis MD Work Phone: [facility] 12-20-2024 10:24-0400 Diastolic blood pressure 58 mm[Hg] Catracho Willis MD Work Phone: [facility] 12-20-2024 10:24-0400 Heart rate 66 /min Catracho Willis MD Work Phone: [facility] 12-20-2024 10:24-0400 Respiratory rate 18 /min Catracho Willis MD Work Phone: [facility] 12-20-2024 10:24-0400 SaO2% (BldA) [Mass fraction] 99 % Catracho Willis MD Work Phone: [facility] 12-20-2024 10:24-0400 Systolic blood pressure 114 mm[Hg] Catracho Willis MD Work Phone: [facility] 08-17-2024 12:54-0400 Body height 182.88 cm Catracho Willis MD Work Phone: [facility] 08-17-2024 12:54-0400 Body mass index (BMI) [Ratio] 25.1 kg/m2 Catracho Willis MD Work Phone: [facility] 08-17-2024 12:54-0400 Body weight 84 kg Catracho Willis MD Work Phone: [facility] 07-01-2024 14:58-0400 Body height 182.9 cm Dee Flores NET TECH[employer]ICAL ARCHITECT Work Phone: [facility] 07-01-2024 14:58-0400 Body mass index (BMI) [Ratio] 25.77 kg/m2 Dee Flores NET TECHNICAL ARCHITECT Work Phone: [facility] 07-01-2024 14:58-0400 Body temperature 97.81 [degF] Dee Flores NET TECHNICAL ARCHITECT Work Phone: [facility] 07-01-2024 14:58-0400 Body weight 86.18 kg Dee Flores NET TECHNICAL ARCHITECT Work Phone: [facility] 07-01-2024 14:58-0400 Diastolic blood pressure 80 mm[Hg] Dee Flores NET TECHNICAL ARCHITECT Work Phone: [facility] 07-01-2024 14:58-0400 Heart rate 61 /min Dee Flores NET TECHNICAL ARCHITECT Work Phone: [facility] 07-01-2024 14:58-0400 Respiratory rate 18 /min Dee Flores NET TECHNICAL ARCHITECT Work Phone: [facility] 07-01-2024 14:58-0400 SaO2% (BldA) [Mass fraction] 93 % Dee Flores NET TECHNICAL ARCHITECT Work Phone: [facility] 07-01-2024 14:58-0400 Systolic blood pressure 124 mm[Hg] Dee Flores NET TECHNICAL ARCHITECT Work Phone: [facility] 06-03-2024 13:41-0400 Body height 182.88 cm [facility] 06-03-2024 13:41-0400 Body mass index (BMI) [Ratio] 25.2 kg/m2 [facility] 06-03-2024 13:41-0400 Body temperature 98 [degF] [facility] 06-03-2024 13:41-0400 Body weight 84.36 kg [facility] 06-03-2024 13:41-0400 Diastolic blood pressure 78 mm[Hg] [facility] 06-03-2024 13:41-0400 Heart rate 68 /min [facility] 06-03-2024 13:41-0400 Respiratory rate 18 /min [facility] 06-03-2024 13:41-0400 SaO2% (BldA) [Mass fraction] 97 % [facility] 06-03-2024 13:41-0400 Systolic blood pressure 134 mm[Hg] [facility] 04-20-2024 14:10-0500 Blood Pressure Location Tonia DAY [facility] 04-20-2024 14:10-0500 Diastolic blood pressure 78 mm[Hg] Tonia DAY [facility] 04-20-2024 14:10-0500 Heart rate 80 /min Tonia DAY [facility] 04-20-2024 14:10-0500 Respiratory rate 16 /min Tonia DAY [facility] 04-20-2024 14:10-0500 Systolic blood pressure 150 mm[Hg] Tonia DAY [facility] 01-06-2024 13:56-0400 Blood Pressure Location Tonia DAY [facility] 01-06-2024 13:56-0400 Diastolic blood pressure 93 mm[Hg] Tonia DAY [facility] 01-06-2024 13:56-0400 Heart rate 72 /min Tonia DAY [facility] 01-06-2024 13:56-0400 Respiratory rate 16 /min Tonia DAY [facility] 01-06-2024 13:56-0400 Systolic blood pressure 175 mm[Hg] Tonia DAY [facility] 12-16-2023 11:13-0400 Body height 182.9 cm Catracho Willis MD Work Phone: [facility] 12-16-2023 11:13-0400 Body mass index (BMI) [Ratio] 25.23 kg/m2 Catracho Willis MD Work Phone: [facility] 12-16-2023 11:13-0400 Body temperature 97.81 [degF] Catracho Willis MD Work Phone: [facility] 12-16-2023 11:13-0400 Body weight 84.37 kg Catracho Willis MD Work Phone: [facility] 12-16-2023 11:13-0400 Diastolic blood pressure 60 mm[Hg] Catracho Willis MD Work Phone: [facility] 12-16-2023 11:13-0400 Heart rate 61 /min Catracho Willis MD Work Phone: [facility] 12-16-2023 11:13-0400 Respiratory rate 18 /min Catracho Willis MD Work Phone: [facility] 12-16-2023 11:13-0400 SaO2% (BldA) [Mass fraction] 97 % Catracho Willis MD Work Phone: [facility] 12-16-2023 11:13-0400 Systolic blood pressure 110 mm[Hg] Catracho Willis MD Work Phone: [facility] 11-20-2023 14:38-0400 Diastolic blood pressure 70 mm[Hg] YAHAIRA TADEO [facility] 11-20-2023 14:38-0400 Heart rate 73 /min YAHAIRA TADEO [facility] 11-20-2023 14:38-0400 Respiratory rate 16 /min YAHAIRA TADEO [facility] 11-20-2023 14:38-0400 Systolic blood pressure 112 mm[Hg] YAHAIRA ETHAN [facility] 11-06-2023 14:34-0400 Blood Pressure Location YAHAIRA ETHAN [facility] 11-06-2023 14:34-0400 Body temperature 98.6 [degF] YAHAIRA ETHAN [facility] 11-06-2023 14:34-0400 Diastolic blood pressure 87 mm[Hg] YAHAIRA ETHAN [facility] 11-06-2023 14:34-0400 Heart rate 72 /min YAHAIRA ETHAN [facility] 11-06-2023 14:34-0400 Respiratory rate 16 /min YAHAIRA ETHAN [facility] 11-06-2023 14:34-0400 Systolic blood pressure 135 mm[Hg] YAHAIRA ETHAN [facility] 09-30-2023 13:51-0400 Blood Pressure Location Tonia DAY [facility] 09-30-2023 13:51-0400 Diastolic blood pressure 74 mm[Hg] Tonia DAY [facility] 09-30-2023 13:51-0400 Heart rate 62 /min Tonia DAY [facility] 09-30-2023 13:51-0400 Systolic blood pressure 127 mm[Hg] Tonia DAY [facility] 06-24-2023 13:09-0400 Body temperature 98.6 [degF] Tonia DAY [facility] 06-24-2023 13:09-0400 Diastolic blood pressure 77 mm[Hg] Tonia DAY [facility] 06-24-2023 13:09-0400 Heart rate 69 /min Tonia DAY [facility] 06-24-2023 13:09-0400 Respiratory rate 16 /min [facility] [facility] 06-24-2023 13:09-0400 Systolic blood pressure 132 mm[Hg] Tonia DAY [facility] 05-13-2023 09:10-0500 Blood Pressure Location YAHAIRA ETHAN [facility] 05-13-2023 09:10-0500 Diastolic blood pressure 74 mm[Hg] YAHAIRA ETHAN [facility] 05-13-2023 09:10-0500 Heart rate 68 /min YAHAIRA ETHAN [facility] 05-13-2023 09:10-0500 Respiratory rate 16 /min YAHAIRA ETHAN [facility] 05-13-2023 09:10-0500 Systolic blood pressure 128 mm[Hg] YAHAIRA ETHAN [facility] 05-05-2023 08:39-0500 Blood Pressure Location Tonia DAY [facility] 05-05-2023 08:39-0500 Diastolic blood pressure 71 mm[Hg] Tonia DAY [facility] 05-05-2023 08:39-0500 Heart rate 67 /min Tonia DAY [facility] 05-05-2023 08:39-0500 Respiratory rate 16 /min Tonia DAY [facility] 05-05-2023 08:39-0500 Systolic blood pressure 129 mm[Hg] Tonia DAY [facility] 03-28-2023 18:00-0500 Body height 182.88 cm Margaret Hardy Other [facility] Other 03-28-2023 18:00-0500 Body mass index (BMI) [Ratio] 25.71 kg/m2 Margaret Hardy Other [facility] Other 03-28-2023 18:00-0500 Body temperature 99.6 [degF] Margaret Hardy Other [facility] Other 03-28-2023 18:00-0500 Body weight 86 kg Margaret Hardy Other [facility] Other 03-28-2023 18:00-0500 Diastolic blood pressure 72 mm[Hg] Margaret Hardy Other [facility] Other 03-28-2023 18:00-0500 Respiratory rate 18 /min Margaret Hardy Other [facility] Other 03-28-2023 18:00-0500 SaO2% (BldA) [Mass fraction] 99 % Margaret Hardy Other [facility] [employer] Other 03-28-2023 18:00-0500 Systolic blood pressure 133 mm[Hg] Margaret Hardy Other [facility] Other 03-03-2023 09:12-0500 Blood Pressure Location Tonia DAY [facility] 03-03-2023 09:12-0500 Diastolic blood pressure 79 mm[Hg] Tonia DAY [facility] 03-03-2023 09:12-0500 Heart rate 80 /min Tonia DAY [facility] 03-03-2023 09:12-0500 Respiratory rate 16 /min Tonia DAY [facility] 03-03-2023 09:12-0500 Systolic blood pressure 126 mm[Hg] Tonia DAY [facility] 01-17-2023 10:25-0400 Blood Pressure Location Tonia DAY [facility] 01-17-2023 10:25-0400 Diastolic blood pressure 66 mm[Hg] Tonia DAY [facility] 01-17-2023 10:25-0400 Heart rate 62 /min Tonia DAY [facility] 01-17-2023 10:25-0400 Respiratory rate 16 /min Tonia DAY [facility] 01-17-2023 10:25-0400 Systolic blood pressure 121 mm[Hg] Tonia DAY [facility] 12-10-2022 13:19-0400 Blood Pressure Location Tonia DAY [facility] 12-10-2022 13:19-0400 Diastolic blood pressure 88 mm[Hg] Tonia DAY [facility] 12-10-2022 13:19-0400 Heart rate 60 /min Tonia DAY [facility] 12-10-2022 13:19-0400 Systolic blood pressure 137 mm[Hg] Tonia DAY [facility] 10-22-2022 09:07-0400 Blood Pressure Location YAHAIRA ETHAN [facility] 10-22-2022 09:07-0400 Diastolic blood pressure 73 mm[Hg] YAHAIRA ETHAN [facility] 10-22-2022 09:07-0400 Heart rate 60 /min YAHAIRA ETHAN [facility] 10-22-2022 09:07-0400 Systolic blood pressure 118 mm[Hg] YAHAIRA ETHAN [facility] 10-08-2022 09:01-0400 Blood Pressure Location YAHAIRA TEHAN [facility] 10-08-2022 09:01-0400 Diastolic blood pressure 80 mm[Hg] YAHAIRA ETHAN [facility] 10-08-2022 09:01-0400 Heart rate 80 /min YAHAIRA ETHAN [facility] 10-08-2022 09:01-0400 Respiratory rate 16 /min YAHAIRA ETHAN [facility] 10-08-2022 09:01-0400 Systolic blood pressure 130 mm[Hg] YAHAIRA ETHAN [facility] 09-17-2022 09:11-0400 Blood Pressure Location YAHAIRA ETHAN [facility] 09-17-2022 09:11-0400 Diastolic blood pressure 74 mm[Hg] YAHAIRA ETHAN [facility] 09-17-2022 09:11-0400 Heart rate 80 /min YAHAIRA ETHAN [facility] 09-17-2022 09:11-0400 Respiratory rate 16 /min YAHAIRA ETHAN [facility] 09-17-2022 09:11-0400 Systolic blood pressure 128 mm[Hg] YAHAIRA ETHAN [facility] 09-10-2022 08:55-0400 Blood Pressure Location YAHAIRA ETHAN [facility] 09-10-2022 08:55-0400 Diastolic blood pressure 70 mm[Hg] YAHAIRA ETHAN [facility] 09-10-2022 08:55-0400 Heart rate 66 /min YAHAIRA ETHAN [facility] 09-10-2022 08:55-0400 Systolic blood pressure 127 mm[Hg] YAHAIRA ETHAN [facility] 09-03-2022 09:00-0400 Blood Pressure Location YAHAIRA ETHAN [facility] 09-03-2022 09:00-0400 Diastolic blood pressure 74 mm[Hg] YAHAIRA ETHAN [facility] 09-03-2022 09:00-0400 Heart rate 68 /min YAHAIRA ETHAN [facility] 09-03-2022 09:00-0400 Respiratory rate 16 /min YAHAIRA ETHAN [facility] 09-03-2022 09:00-0400 Systolic blood pressure 128 mm[Hg] YAHAIRA ETHAN [facility] 08-27-2022 09:03-0400 Blood Pressure Location YAHAIRA ETHAN [facility] 08-27-2022 09:03-0400 Diastolic blood pressure 76 mm[Hg] YAHAIRA ETHAN [facility] 08-27-2022 09:03-0400 Heart rate 80 /min YAHAIRA ETHAN [facility] 08-27-2022 09:03-0400 Respiratory rate 16 /min YAHAIRA ETHAN [facility] 08-27-2022 09:03-0400 Systolic blood pressure 132 mm[Hg] YAHAIRA ETHAN [facility] 07-26-2022 08:44-0400 Blood Pressure Location Toniapete DAY [facility] 07-26-2022 08:44-0400 Diastolic blood pressure 90 mm[Hg] Tonia DAY [facility] 07-26-2022 08:44-0400 Heart rate 68 /min Tonia DYA [facility] 07-26-2022 08:44-0400 Respiratory rate 16 /min Toniapete DAY [facility] 07-26-2022 08:44-0400 Systolic blood pressure 128 mm[Hg] Tonia DAY [facility] 03-29-2022 10:45-0500 Body height 182.88 cm Nahid Galavizley Other [facility] Other 03-29-2022 10:45-0500 Body mass index (BMI) [Ratio] 25.09 kg/m2 Nahid Galavizley Other [facility] Other 03-29-2022 10:45-0500 Body weight 83.92 kg Nahid Trish Other [facility] Other 01-07-2022 12:22-0400 Blood Pressure Location Tonia DAY [facility] 01-07-2022 12:22-0400 Diastolic blood pressure 71 mm[Hg] Tonia DAY [facility] 01-07-2022 12:22-0400 Heart rate 65 /min Toniapete DAY [facility] 01-07-2022 12:22-0400 Respiratory rate 16 /min Tonia DAY [facility] 01-07-2022 12:22-0400 Systolic blood pressure 124 mm[Hg] Tonia DAY [facility] 09-28-2021 11:00-0400 Body height 182.88 cm Nahid Canchola Other [employer] [facility] [employer] Other 09-28-2021 11:00-0400 Body mass index (BMI) [Ratio] 25.49 kg/m2 Nahid Trish Other [facility] Other 09-28-2021 11:00-0400 Body weight 85.28 kg Nahid Canchola Other [facility] Other 08-01-2021 14:00-0400 Body height 182.88 cm Nahid Trish Other [facility] Other 08-01-2021 14:00-0400 Body mass index (BMI) [Ratio] 25.49 kg/m2 Nahid Trish Other [facility] Other 08-01-2021 14:00-0400 Body weight 85.28 kg Nahid Trish Other [facility] Other 07-18-2021 12:00-0400 Body height 182.88 cm Nahid Trish Other [facility] Other 07-18-2021 12:00-0400 Body mass index (BMI) [Ratio] 26.04 kg/m2 Nahid Trish Other [facility] Other 07-18-2021 12:00-0400 Body weight 87.09 kg Nahid Trish Other [facility] Other 04-23-2021 15:45-0500 Body height 182.88 cm Nahid Trish Other [facility] Other 04-23-2021 15:45-0500 Body mass index (BMI) [Ratio] 26.04 kg/m2 Nahid Trish Other [facility] Other 04-23-2021 15:45-0500 Body weight 87.09 kg Nahid Trish Other [facility] Other 03-12-2021 09:00-0500 Body height 182.88 cm Nahid Trish Other [facility] Other 03-12-2021 09:00-0500 Body mass index (BMI) [Ratio] 26.12 kg/m2 Nahid Trish Other [facility] Other 03-12-2021 09:00-0500 Body weight 87.36 kg Nahid Trish Other [facility] Other 02-12-2021 14:00-0500 Body height 182.88 cm Nahid Trish Other [facility] Other 02-12-2021 14:00-0500 Body mass index (BMI) [Ratio] 26.04 kg/m2 Nahid Trish Other [facility] Other 02-12-2021 14:00-0500 Body weight 87.09 kg Nahid Trish Other [facility] Other 01-10-2021 12:00-0400 Body height 182.88 cm Nahid Canchola Other [facility] Other 01-10-2021 12:00-0400 Body mass index (BMI) [Ratio] 26.15 kg/m2 Nahid Canchola Other [facility] Other 01-10-2021 12:00-0400 Body weight 87.45 kg Nahid Canchola Other [facility] Other Encounters Encounter Date Encounter Type Care Provider Facility Start: 12-21-2024 End: 12-21-2024 Patient encounter procedure Mickie Cooper MD -[facility] Work Phone: Start: 12-21-2024 End: 12-21-2024 ambulatory Catracho Willis MD Work Phone: [facility] Work Phone: Start: 12-20-2024 End: 12-20-2024 ambulatory Catracho Willis MD Work Phone: [facility] Work Phone: Start: 12-20-2024 End: 12-20-2024 Patient encounter procedure Catracho Willis MD -[facility] Work Phone: Start: 08-24-2024 End: 08-24-2024 ambulatory [place]onia DAY [place] [place]: 08-24-2024 End: 08-24-2024 Lab Drop off Tonia DAY [facility] Start: 08-24-2024 End: 08-24-2024 ambulatory Tonia DAY Facility: [place] Start: 08-24-2024 End: 08-24-2024 Patient encounter procedure Tonia DAY [facility] [place] Start: 08-20-2024 End: 08-20-2024 Clinisync Result Encounter Dee Flores NET TE[employer]ICAL ARCHITECT Work Phone: [facility] Unsolicited Start: 08-20-2024 End: 08-20-2024 Clinisync Result Encounter Dee Sandra NET TECHNICAL ARCHITECT Work Phone: [facility] Unsolicited Start: 08-17-2024 End: 08-17-2024 ambulatory Catracho Willis MD Work Phone: [facility] Work Phone: Start: 08-17-2024 End: 08-17-2024 Patient encounter procedure Catracho Willis MD Work Phone[facility] Work Phone: Start: 08-17-2024 End: 08-17-2024 Patient encounter procedure Catracho Willis MD Work Phone: [facility] Start: 08-17-2024 End: 08-17-2024 ambulatory Catracho Willis MD Work Phone: [facility] Work Phone: Start: 08-10-2024 End: 08-10-2024 Orders Only Dee Flores NET TECHNICAL ARCHITECT Work Phone: [facility] Comment on above: History of abdominal hernia (Primary Dx); Generalized abdominal pain Start: 07-29-2024 End: 07-29-2024 ambulatory YAHAIRA E ETHAN Facility:[facility] [place] Start: 07-22-2024 End: 07-22-2024 ambulatory YAHAIRA E ETHAN Facility:[facility] Start: 07-15-2024 End: 07-15-2024 ambulatory YAHAIRA E ETHAN Facility:[facility] [place] Start: 07-01-2024 End: 07-01-2024 Office outpatient visit 15 minutes Dee Flores NP Work Phone: [facility] Comment on above: History of abdominal hernia (Primary Dx); Cigarette smoker; Malignant neoplasm of urinary bladder, unspecified site ([facility]/HCC) Start: 07-01-2024 End: 07-01-2024 ambulatory DEE SANDRA Not Available Start: 07-01-2024 End: 07-01-2024 Bamboo flowsheet Dee Caitysabeltrish NET TECHNICAL ARCHITECT Work Phone: [facility] Start: 07-01-2024 End: 07-01-2024 Bamboo flowsheet Dee Caitysabeltrish NET TECHNICAL ARCHITECT Work Phone: [facility] Start: 06-24-2024 End: 06-24-2024 Clinisync Result Encounter Catracho Willis MD Work Phone: [facility] Unsolicited Start: 06-24-2024 End: 06-24-2024 Clinisync Result Encounter Catracho Willis MD Work Phone: [facility] Unsolicited Start: 06-10-2024 End: 06-10-2024 ambulatory CATRACHO WILLIS Not Available Start: 06-03-2024 End: 06-03-2024 ambulatory [facility] Work Phone: Start: 06-03-2024 End: 06-03-2024 Patient encounter procedure [facility] [place] Work Phone: Start: 05-31-2024 End: 05-31-2024 Clinisync Result Encounter Generic External Data Provider [facility] Unsolicited Start: 05-31-2024 End: 05-31-2024 Clinisync Result Encounter Generic External Data Provider [facility] Unsolicited Start: 04-20-2024 End: 04-20-2024 Lab Drop off Tonia DAY [facility] Start: 04-20-2024 End: 04-20-2024 ambulatory [place] DAY [place]: 04-20-2024 End: 04-20-2024 Patient encounter procedure Tonia DAY [facility] Start: 01-06-2024 End: 01-06-2024 ambulatory [place]onia DAY [place] [place]: 01-06-2024 End: 01-06-2024 Lab Drop off Tonia DAY [facility] Start: 01-06-2024 End: 01-06-2024 ambulatory Toniapete DAY Facility:[facility] Start: 01-06-2024 End: 01-06-2024 Patient encounter procedure Tonia DAY [facility] Start: 12-19-2023 End: 12-19-2023 Clinisync Result Encounter [...] encounter procedure Catracho Willis MD Work Phone: [facility] Work Phone: Start: 12-16-2023 End: 12-16-2023 Postop follow up visit related to original px Catracho Willis MD Work Phone: [facility] Comment on above: Medicare annual well ness visit, subsequent (Primary Dx); Prediabetes; Screening PSA (prostate specific antigen); Encounter for long-term (current) use of medications; Dyslipidemia ([facility]/HCC); Malignant neoplasm of urinary bladder, unspecified site (CMS/HCC) Start: 11-20-2023 End: 11-20-2023 ambulatory YAHAIRA TADEO Facility:[facility] Start: 11-20-2023 End: 11-20-2023 Patient encounter procedure [facility]HAIRA TADEO [facility] Start: 11-13-2023 End: 11-13-2023 ambulatory YAHAIRA TADEO Facility:[facility] Start: 11-13-2023 End: 11-13-2023 Patient encounter procedure YAHAIRA TADEO [facility] Start: 11-06-2023 End: 11-06-2023 ambulatory [facility] Start: 11-06-2023 End: 11-06-2023 Patient encounter procedure YAHAIRA TADEO [facility] Start: 09-30-2023 End: 09-30-2023 Lab Drop off Tonia DAY [facility] Start: 09-30-2023 End: 09-30-2023 Patient encounter procedure Tonia DAY [facility] [place] Start: 08-20-2023 End: 08-20-2023 ambulatory FLAQUITA SEE Not Available Start: 06-24-2023 End: 06-24-2023 Lab Drop off Tonia DAY [facility] Start: 06-24-2023 End: 06-24-2023 Patient encounter procedure Tonia DAY [facility] [employer] Start: 05-13-2023 End: 05-13-2023 Patient encounter procedure YAHAIRA TADEO [facility] [employer] Start: 05-05-2023 End: 05-05-2023 Patient encounter procedure Tonia DAY [facility] [employer] Start: 03-28-2023 End: 03-28-2023 ambulatory Margaret Hardy Other [facility] Other Start: 03-28-2023 Office outpatient vi sit 15 minutes Margaret Hardy [facility] [place] Start: 03-10-2023 End: 03-10-2023 Patient encounter procedure Tonia DAY [facility] [employer] Start: 03-03-2023 End: 03-03-2023 Patient encounter procedure Tonia DAY [facility] [employer] Start: 02-26-2023 End: 02-26-2023 Patient encounter procedure Tonia DAY [facility] [employer] Start: 01-17-2023 End: 01-17-2023 Patient encounter procedure Tonia DAY [facility] [employer] Start: 12-10-2022 End: 12-10-2022 Patient encounter procedure Tonia DAY [facility] Start: 12-09-2022 End: 12-09-2022 Lab Drop off Tonia DAY [facility] Start: 12-09-2022 End: 12-09-2022 Patient encounter procedure Tonia DAY [facility] Start: 10-22-2022 End: 10-22-2022 Patient encounter procedure YAHAIRA Lexx NAILSRY [facility] Start: 10-08-2022 End: 10-08-2022 Patient encounter procedure YAHAIRA Lexx NAILSRY [facility] Start: 09-17-2022 End: 09-17-2022 Patient encounter procedure YAHAIRA Lexx ETHAN [facility] Start: 09-10-2022 End: 09-10-2022 Patient encounter procedure YAHAIRA E ETHAN [facility] Start: 09-03-2022 End: 09-03-2022 Patient encounter procedure YAHAIRA E ETHAN [facility] Start: 08-27-2022 End: 08-27-2022 Lab Drop off YAHAIRA E ETHAN [facility] Start: 08-27-2022 End: 08-27-2022 Patient encounter procedure YAHAIRA E ETHAN [facility] Start: 07-26-2022 End: 07-26-2022 Patient encounter procedure Tonia DAY [facility] Start: 07-20-2022 Encounter for preprocedural cardiovascular examination DR TONIA DAY . [facility] Start: 07-20-2022 Encounter for preprocedural laboratory examination DR TONIA DAY . [facility] Start: 07-18-2022 End: 07-18-[address] TONIA DAY . Facility:[facility] Start: 07-17-2022 End: 07-18-[address] TONIA DAY . Facility:[facility] Start: 07-17-2022 End: 07-18-2022 Encounter for preprocedural cardiovascular examination DR TONIA DAY . Facility:[facility] Start: 07-16-2022 End: 07-16-2022 Patient encounter procedure Tonia DAY [facility] Start: 06-27-2022 End: 06-28-[address] TONIA DAY . Facility:[facility] Start: 06-10-2022 Office outpatient ne w 45 minutes Mickie Cooper [facility] Start: 06-10-2022 End: 06-10-2022 ambulatory MD Catracho Willis Work Phone: [facility] Work Phone: Start: 06-10-2022 End: 06-10-2022 Patient encounter procedure MD Catracho Willis Work Phone: [facility] Start: 03-29-2022 End: 03-29-2022 ambulatory Nahid Canchola Other [facility] Other Start: 03-29-2022 Patient encounter procedure Nahid Canchola [facility] Start: 03-21-2022 End: 03-21-2022 ambulatory MD Catracho Willis Work Phone: [facility] Work Phone: Start: 03-21-2022 End: 03-21-2022 Patient encounter procedure MD Catracho Willis Work Phone: [facility] [address] Work Phone: Start: 01-07-2022 End: 01-07-2022 Patient encounter procedure Tonia DAY [facility] Start: 12-05-2021 End: 12-06-[address] TONIA DAY . Facility:[facility] Start: 12-03-2021 End: 12-03-2021 ambulatory Nahid Canchola Other [facility] Other Start: 12-03-2021 Office outpatient vi sit 15 minutes Nahid Canchola [facility] Start: 12-03-2021 End: 12-03-2021 Patient encounter procedure MD Catracho Willis Work Phone: [facility] Start: 11-14-2021 End: 11-14-2021 Patient encounter procedure MD Catracho Willis Work Phone: [facility] [address] Start: 11-01-2021 End: 11-01-2021 ambulatory Nahid Canchola Other [facility] Other Start: 11-01-2021 Telephone encounter Nahid MERRILL [facility] Start: 10-26-2021 End: 10-26-2021 Patient encounter procedure MD Catracho Willis Work Phone: [facility] Start: 10-04-2021 End: 11-15-2021 ambulatory NAHID CANCHOLA Facility:[facility] Start: 09-28-2021 End: 09-28-2021 ambulatory Nahid Canchola Other [facility] Other Start: 09-28-2021 Postop follow up vis it related to original px Nahid Trish [facility] Start: 08-17-2021 End: 08-17-2021 ambulatory Nahid Galavizley Other [facility] Other Start: 08-17-2021 Postop follow up vis it related to original px Nahid Trish [facility] Start: 08-01-2021 End: 08-01-2021 ambulatory Nahid Trish Other [facility] Other Start: 08-01-2021 Postop follow up vis it related to original px Nahid Trish [facility] Start: 07-31-2021 End: 07-31-2021 ambulatory Nahiddarling Canchola Other [facility] Other Start: 07-31-2021 Telephone encounter Nahid Canchola FP [facility] Start: 07-18-2021 End: 07-18-2021 ambulatory Nahiddarling Canchola Other [facility] Other Start: 07-18-2021 Postop follow up vis it related to original px Nahid Trish [facility] Start: 07-03-2021 End: 07-03-2021 ambulatory Nahid Canchola Other [facility] Other Start: 07-03-2021 Telephone encounter Nahid Canchola [facility] Start: 07-02-2021 End: 07-02-2021 ambulatory Nahid Canchola Other [facility] Other Start: 07-02-2021 Encounter for other preprocedural examination Nahid Canchola [facility] Start: 07-02-2021 Office outpatient vi sit 25 minutes Nahid Canchola [facility] Start: 06-11-2021 End: 06-11-2021 ambulatory Nahid Canchola Other [facility] Other Start: 06-11-2021 Telephone encounter Nahid Galavizley [facility] Start: 05-28-2021 End: 05-28-2021 ambulatory Nahid Canchola Other [facility] Other Start: 05-28-2021 Telephone encounter Nahid Trish [facility] Start: 04-23-2021 End: 04-23-2021 ambulatory Nahid Canchola Other [facility] Other Start: 04-23-2021 Office outpatient vi sit 15 minutes Nahid Canchola [facility] Start: 03-12-2021 End: 03-12-2021 ambulatory Nahid Canchola Other [facility] Other Start: 03-12-2021 Office outpatient vi sit 15 minutes Nahid Canchola [facility] Start: 02-12-2021 End: 02-12-2021 ambulatory Nahid Canchola Other [facility] Other Start: 02-12-2021 Office outpatient vi sit 15 minutes Nahid Canchola [facility] Start: 02-05-2021 End: 02-05-2021 ambulatory Les Paul Other [facility] Other Start: 02-05-2021 Telephone encounter Les Paul [facility] Start: 01-10-2021 Office outpatient vi sit 25 minutes Nahid Canchola [facility] Start: 08-13-2018 Emergency department patient visit CATRACHO WILLIS [facility] Procedures Date Procedure Procedure Detail Performing Clinician Start: 12-21-2024 Plain X-ray of right shoulder Catracho Willis MD Work Phone: Start: 08-24-2024 Cystoscopy Tonia GOMEZ Start: 08-20-2024 CT ABDOMEN PELVIS W CON Dee Sandra NET TECHNICAL ARCHITECT Work Phone: Start: 08-20-2024 [facility] CREATININE Dee Chavira julio cesar NET TECHNICAL ARCHITECT Work Phone: Start: 08-17-2024 Plain X-ray of bilat eral shoulders Catracho Willis MD Work Phone: Start: 06-24-2024 CT LUNG SCREENING LOW DOSE Catracho Willis MD Work Phone: Start: 05-31-2024 MHPT PSA, DIAGNOSTIC [employer] External Data Provider Start: 04-20-2024 Cystoscopy Tonia GOMEZ Start: 01-06-2024 Cystoscopy Tonia GOMEZ Start: 12-19-2023 ALL CBC WITH AUTO DIFF Catracho Willis MD Work Phone: Start: 09-30-2023 Flexible cystoscope (physical object) Tonia DAY Start: 09-02-2023 Colonoscopy Catracho harmon MD Work Phone: Start: 06-24-2023 Transurethral cystoscopy Toniapete DAY Start: 02-20-2023 Transurethral resect ion of bladder neoplasm Tonia DAY Start: 01-09-2023 Transurethral resect ion of bladder neoplasm Tonia BARB Start: 12-10-2022 Cystoscopy Tonia GOMEZ Start: 07-18-2022 Transurethral resect ion of bladder neoplasm Tonia BARB Start: 06-27-[address] DENICE DAY . Comment on above: Performed By: #### P SAD #### [facility] [address] [place] [address] Dr. Viktoria Nuñez Start: 06-10-2022 Plain X-ray of right shoulder MD Catracho Willis Work Phone: Start: 03-21-2022 MR lumbar spine wo con MD Catracho Wlilis Work Phone: Start: 12-05-[address] DENICE DAY . Comment on above: Performed By: #### P SAD #### [facility] [address] [place] [address] Dr. Viktoria Nuñez Start: 12-03-2021 X-ray of left knee MD Vickie Willis Work Phone: Start: 11-14-2021 MRI of left femur MD Geoffrey Willis Work Phone: Start: 11-14-2021 XR pre/post mri xray MD Catracho Willis Work Phone: Start: 10-26-2021 X-ray of lumbar spin e, four views MD Catracho Willis Work Phone: Start: 03-24-2021 Arthroplasty of knee Max DAY Start: 10-15-2013 Cystoscopy Tonia GOMEZ History of repair of musculotendinous cuff of shoulder History of repair of rotator cuff Catracho Willis MD Work Phone: Comment on above: bilateral History of repair of musculotendinous cuff of shoulder History of repair of rotator cuff Mickie Cooper MD Transrectal biopsy o f prostate using ultrasound guidance Tonia DAY Plan of Treatment Date Care Activity Detail Author Start: 09-01-2033 Screening for malign ant neoplasm of colon [facility] Start: 12-21-2024 Plain X-ray of right shoulder XR shoulder RT min 2V* [facility] Start: 12-21-2024 XR Shoulder - right Views [facility] Start: 12-20-2024 End: 12-20-2024 Patient encounter procedure 12/20/2024 10:00 AM EDT Office Visit [facility] [address] [place] [address] Catracho Willis MD [address] [place] [address] [facility] Start: 12-15-2024 Medicare Annual Well ness (AWV) Medicare Annual Wellness (AWV) [facility] Start: 11-22-2024 Influenza vaccination Influenz a Vaccine (Season Ended) [facility] Start: 08-17-2024 Plain X-ray of bilat eral shoulders XR shoulder BI min 2V [facility] Start: 08-17-2024 XR Shoulder - bilate ral Views [facility] Start: 08-10-2024 End: 08-10-2025 Basic metabolic 1997 panel - Serum or Plasma Basic metabolic panel Lab Routine History of abdominal hernia Generalized abdominal pain Expected: 08/10/2024 (Approximate), Expires: 08/10/2025 [facility] Comment on above: Expected: 08/10/2024 (Approximate), Expires: 08/10/2025 Start: 08-10-2024 End: 08-10-2025 CT Abdomen and Pelvis W contrast IV CT abdomen pelvis w IV contrast Imaging Routine History of abdominal hernia Generalized abdominal pain Expected: 08/10/2024, Expires: 08/10/2025 [facility] Work Phone: Comment on above: Expected: 08/10/2024 , Expires: 08/10/2025 Start: 07-01-2024 End: 07-01-2024 Patient encounter procedure [facility] Comment on above: Cigarette smoker (Pr imary Dx) Start: 12-16-2023 End: 12-15-2024 Basic metabolic 1997 panel - Serum or Plasma Basic metabolic panel Lab Routine Encounter for long-term (current) use of medications Expected: 12/16/2023 (Approximate), Expires: 12/15/2024 [facility] Comment on above: Expected: 12/16/2023 (Approximate), Expires: 12/15/2024 Start: 12-16-2023 End: 12-15-2024 CBC W Auto Differential panel - Blood CBC and differential Lab Routine Encounter for long-term (current) use of medications Expected: 12/16/2023 (Approximate), Expires: 12/15/2024 [facility] Comment on above: Expected: 12/16/2023 (Approximate), Expires: 12/15/2024 Start: 12-16-2023 End: 12-15-2024 Hemoglobin A1c/Hemoglobin.total in Blood Hemoglobin A1c Lab Routine Prediabetes Expected: 12/16/2023 (Approximate), Expires: 12/15/2024 [facility] Work Phone: Comment on above: Expected: 12/16/2023 (Approximate), Expires: 12/15/2024 Start: 12-16-2023 End: 12-15-2024 Hepatic function 2000 panel - Serum or Plasma Hepatic function panel Lab Routine Encounter for long-term (current) use of medications Expected: 12/16/2023 (Approximate), Expires: 12/15/2024 [facility] Comment on above: Expected: 12/16/2023 (Approximate), Expires: 12/15/2024 Start: 12-16-2023 End: 12-15-2024 Lipid 1996 panel - Serum or Plasma Lipid panel Lab Routine Dyslipidemia (CMS/HCC) Expected: 12/16/2023 (Approximate), Expires: 12/15/2024 [facility] Comment on above: Expected: 12/16/2023 (Approximate), Expires: 12/15/2024 Start: 12-16-2023 End: 12-15-2024 Prostate specific Ag [Mass/volume] in Serum or Plasma PSA Lab Routine Screening PSA (prostate specific antigen) Expected: 12/16/2023 (Approximate), Expires: 12/15/2024 [facility] Comment on above: Expected: 12/16/2023 (Approximate), Expires: 12/15/2024 Start: 11-23-2023 Influenza vaccination Influenza Vacc ine (#1) [facility] Start: 11-14-2021 MRI of left femur MR femur LT wo con [facility] Start: 11-14-2021 XR pre/post mri xray XR pre/post mri xray [facility] Start: 11-14-2021 End: 11-14-2021 Patient encounter procedure Departed Clinical [facility] [address] Start: 1973 Pneumococcal Vaccine : 65+ Years (1 of 2 - PCV) Pneumococcal Vaccine: 65+ Years (1 of 2 - PCV) [facility] Start: 1960 Pneumococcal Vaccine : 65+ Years (1 of 2 - PCV) Pneumococcal Vaccine: 65+ Years (1 of 2 - PCV) [facility] Start: 1954 Medicare Annual Well ness (AWV) Medicare Annual Wellness (AWV) [facility] Start: 1954 Screening for malign ant neoplasm of colon [facility] Comprehensive metabo lic 2000 panel - Serum or Plasma [facility] Immunizations Immunization Date Immunization Notes Care Provider Fa frankie 07-29-2024 bacillus calmette-kely vaccine Tonia DAY [facility] Comment on above: Early/Late Reason: E vijay/Late Reason: Other : Didn't document yesterday 07-22-2024 bacillus calmette-kely vaccine Tonia DAY [facility] Comment on above: Early/Late Reason: E vijay/Late Reason: Other : Forgot to document yesterday 07-15-2024 bacillus calmette-kely vaccine Tonia DAY [facility] 11-20-2023 bacillus calmette-kely vaccine YAHAIRA TADEO [facility] 11-13-2023 bacillus calmette-kely vaccine YAHAIRAMICHELE TADEO [facility] 11-06-2023 bacillus calmette-kely vaccine YAHAIRA ETHAN [facility] 05-13-2023 bacillus calmette-kely vaccine YAHAIRA ETHAN [facility] 05-05-2023 bacillus calmette-kely vaccine Tonia DAY [facility] 04-28-2023 bacillus calmette-kely vaccine Tonia DAY [facility] 10-22-2022 bacillus calmette-kely vaccine YAHAIRA ETHAN [facility] 10-14-2022 bacillus calmette-kely vaccine YAHAIRA ETHAN [facility] Comment on above: Early/Late Reason: E vijay/Late Reason: Other : Late documentation. Did not enter correct info 10-14-2022 bacillus calmette-kely vaccine YAHAIRA ETHAN [facility] 10-08-2022 bacillus calmette-kely vaccine YAHAIRA ETHAN [facility] 09-17-2022 bacillus calmette-kely vaccine YAHAIRA ETHAN [facility] 09-10-2022 bacillus calmette-kely vaccine YAHAIRA ETHAN [facility] 09-03-2022 bacillus calmette-kely vaccine YAHAIRA ETHAN [facility] 08-27-2022 bacillus calmette-kely vaccine YAHAIRA ETHAN [facility] 02-28-2021 COVID-Sue Wilhelm (Pfizer) MD Catracho Willis Work Phone: [facility] 01-10-2021 Kenalog -40 mg Nahid Canchola Other [employer] Other 09-01-2020 SARS-CoV-2 (COVID-19 ) mRNA BNT-162b2 vax YAHAIRA TADEO [facility] 08-28-2020 COVID-19 mRNASue (Pfizer) MD Catracho Willis Work Phone: [facility] 08-11-2020 COVID-19 Sue Lux (Pfizer) MD Catracho Willis Work Phone: [facility] NEGATED: Highlighted row has not occurred!06-24-2023 influenza virus vaccine, unspecified formulation Tonia DAY [facility] [place] Payers Date Payer Category Payer Self-pay [id number] 2023 Medicaid [id number] 2023 Medicaid [id number] 2022 Medicare [id number]. [id number] 2022 Medicare (Managed Care) [employer] [id number]. [id number] 2022 Unknown [id number] 2018 Unknown [id number] 1959 Medicare [id number] 2.16.840.1.161627.19 1954 Unknown [id number] 2.16.840.1.766976.3.579.2. 173 1954 Unknown [id number] 2.16.840.1.340537.3.579.2. 593 1954 Unknown [id number] 2.16.840.1.296993.3.579.2. 593 1954 Unknown [id number] 2.16.840.1.355999.3.579.2. 593 1954 Unknown [id number] 2.16.840.1.142578.3.579.2. 593 1954 Unknown [id number] 2.16.840.1.779482.3.579.2. 593 1954 Unknown [id number] 2.16.840.1.036424.3.579.2. 593 1954 Unknown [id number] 2.16.840.1.902611.3.579.2. 727 1954 Unknown [id number] 2.16.840.1.315508.3.579.2. 727 1954 Unknown [id number] 2.16.840.1.618119.3.579.2. 727 1954 Unknown [id number] 2.16.840.1.165985.3.579.2. 727 1954 Unknown [id number] 2.16.840.1.955187.3.579.2. 727 1954 Unknown [id number] 2.16.840.1.174843.3.579.2. 1259 1954 Unknown [id number] 2.16.840.1.364296.3.579.2. 1259 1954 Unknown [id number] 2.16.840.1.720329.3.579.2. 1259 1954 Unknown [id number] 2.16.840.1.699557.3.579.2. 1259 1954 Unknown [id number] 2.16.840.1.435758.3.579.2. 727 1954 Unknown [id number] 2.16840.1.125505.3.579.2. 727 1954 Unknown [id number] 2.16.840.1.677085.3.579.2. 727 1954 Unknown [id number] 2.16.840.1.889858.3.579.2. 72 1954 Unknown [id number] 2.16840.1.910388.3.579.2. 727 1954 Unknown [id number] 2.0.1.180211.3.579.2. 72 1954 Unknown [id number] 2.16840.1.900954.3.579.2. 72 Unknown [place] BC/BS [id number] Unknown HCAP/HFA/FAP Active [id number] Unknown [id number] 2.1.954391.3.579.2. 531 Unknown [id number] 2.0.1.396312.3.579.2. 531 Social History Date Type Detail Facility Start: 12-16-2023 End: 07-01-2024 Sex Assigned At [facility] Start: 07-05-2021 End: 07-05-2021 Tobacco smoking status NHIS Smoker (finding) [facility] Start: 1955 Sex Assigned At Male [facility] Start: 09-05-2020 Tobacco smoking status Never s moked tobacco (finding) [facility] Start: 06-05-2022 End: 08-24-2024 Tobacco smoking status Heavy tobacco smoker (finding) [facility] Tobacco smoking status Never [facility] Start: 04-02-2023 End: 12-20-2024 Tobacco smoking status NHIS Smokes tobacco daily [facility] Start: 03-24-1972 History of tobacco use Cigarette Smo ker [facility] Start: 04-02-2023 End: 12-16-2023 Cigarettes smoked current (pack per day) - Reported 1 [facility] Start: 04-02-2023 Tobacco use and exposure Smoke less tobacco non-user [facility] Start: 1955 Sex assigned at Not on file [facility] Start: 11-22-2015 End: 06-03-2024 Sex Male (finding) [facility] Sexual Orientation [facility] Medical Equipment Procedure Code Equipment Code Equipment Origin al Text Equipment Identifier Dates Arthroplasty, knee, total, minimally invasive Orthopaedic cement, non-medicated [id number] FDA Start: 07-05-2021 Arthroplasty, knee, total, minimally invasive Coated knee femur prosthesis ()[id number] FDA Start: 07-05-2021 Arthroplasty, knee, total, minimally invasive Tibial insert ()[id number] FDA Start: 07-05-2021 Arthroplasty, knee, total, minimally invasive Polyethylene patella prosthesis ()[id number] FDA Start: 07-05-2021 Arthroplasty, knee, total, minimally invasive Uncoated knee tibia prosthesis, metallic ()[id number] FDA Start: 07-05-2021 Functional Status Date Assessment Result Facility 04-20-2024 Functional Status N/A [facility] 01-06-2024 Functional Status N/A [facility] 11-20-2023 Functional Status N/A [facility] 11-06-2023 Functional Status N/A [facility] 09-30-2023 Functional Status N/A [facility] 06-24-2023 Functional Status N/A [facility] 05-13-2023 Functional Status N/A [facility] 05-05-2023 Functional Status N/A [facility] 03-03-2023 Functional Status N/A [facility] 01-17-2023 Functional Status N/A [facility] 12-10-2022 Functional Status N/A [facility] 10-22-2022 Functional Status N/A [facility] 10-08-2022 Functional Status N/A [facility] 09-17-2022 Functional Status N/A [facility] 09-10-2022 Functional Status N/A [facility] 09-03-2022 Functional Status N/A [facility] 08-27-2022 Functional Status N/A [facility] 07-26-2022 Functional Status N/A [facility] 01-07-2022 Functional Status N/A [facility] Clinical Notes 06-28-2010 to 12-20-2024 Note Date & Type Note Facility 12-20-2024 Evaluation note Diagnosis Onset Date Resolution Medicare annual wellness visit, subsequent acute December 20, 2024 10:01am Arthritis of right glenohumeral joint acute November 10:23am Bladder cancer acute December 21, 2024 10:23am Right rotator cuff tear acute S eptember 2024 10:23am Tendonitis of left rotator cuff acute December 21, 2024 10:23am History of repair of rotator cuff inactive December 21, 2024 10:23am [facility] Work Phone: 1(983) 458-913206-03-2025 Hospital Discharge instructions Patient Education 08/24/2024 13:33:58 Cancer Screening for Males Cancer Screening for [...] if anything looks unusual. Males with a ynwvla-ozbg-ykvjhs risk for skin cancer may want to see a resolution specialist (laundry washer) for an annual body check. Where to find more information [place] [employer]: cancer.org Centers for Disease Control and Prevention: cdc.gov National Cancer [place]: cancer.gov Contact a health care provider if: [...] provider. Document Revised: 03/18/2023 Document Reviewed: 09/30/2022 [employer] Patient Education 2023 [employer]. Follow Up Care 06/21/2024 15:05:02 With:BARB RAMIREZ, Tonia Vasquez, URL Address: [facility] [address] , [place] [address]- [id number] When: Unknown [facility] Dora 06-03-2025 Evaluation + Plan note Diagnostic Tests Pending * [facility] ([facility]) 08/24/24 [facility] 06-03-2025 NotePatient Education Oncology Cancer Screening for Males [...] if anything looks unusual. Males with a sppjfb-qtmc-rctrat risk for skin cancer may want to see a resolution specialist (dermatologi (more content not included)...[facility]05-09-2025 NotePatient Education Oncology Bladder Cancer Bladder cancer [...] Follow these instructions at home: ??? Take gxmi-cmo-gitnyzf and prescription medicines only as told by your health care provider. ??? If you were prescribed an antibiotic medicine, take it as told by your health care provider. Donot stop using the antibiotic even if you [...] Your team may be able to recommend waysto get relief. ??? Keep all follow-up visits. This is important. Where to find more information ??? [place] [employer] (ACS): cancer.org ??? National Cancer [place] (NCI): cancer.gov Contact a health care provider [...] physical exam, lab tests, imaging tests, and yoursymptoms. ??? Your health care provider may recommend one or more types of treatment based on the stage of your cancer. ??? Consider joining a support group. This may help you learn to deal with the stress of having bladder cancer. This information is n (more content not included)...[facility] 07-23-2024 NotePatient Education Oncology Bladder Cancer Bladder cancer [...] Follow these instructions at home: ??? Take kedm-olq-wvmhnen and prescription medicines only as told by your health care provider. ??? If you were prescribed an antibiotic medicine, take it as told by your health care provider. Donot stop using the antibiotic even if you [...] Your team may be able to recommend waysto get relief. ??? Keep all follow-up visits. This is important. Where to find more information ??? [place] [employer] (ACS): cancer.org ??? National Cancer [place] (NCI): cancer.gov Contact a health care provider [...] physical exam, lab tests, imaging tests, and yoursymptoms. ??? Your health care provider may recommend one or more types of treatment based on the stage of your cancer. ??? Consider joining a support group. This may help you learn to deal with the stress of having bladder cancer. This information is n (more content not included)...[facility] 07-15-2024 NotePatient Education Oncology Bladder Cancer Bladder cancer [...] Follow these instructions at home: ??? Take yrvb-lvw-exnpgwu and prescription medicines only as told by your health care provider. ??? If you were prescribed an antibiotic medicine, take it as told by your health care provider. Donot stop using the antibiotic even if you [...] Your team may be able to recommend waysto get relief. ??? Keep all follow-up visits. This is important. Where to find more information ??? [place] [employer] (ACS): cancer.org ??? National Cancer [place] (NCI): cancer.gov Contact a health care provider [...] physical exam, lab tests, imaging tests, and yoursymptoms. ??? Your health care provider may recommend one or more types of treatment based on the stage of your cancer. ??? Consider joining a support group. This may help you learn to deal with the stress of having bladder cancer. This information is n (more content not included)...[facility] 07-01-2024 History of Present illness Narrative* Dee Flores, RADHA - 07/01/2024 5:24 PM EDTAssociated Problem(s): History of abdominal hernia Hx of this with a repair umbilical It does appear questionable if there is another hernia in the LLQ inner upper quad. No definite butpossible Discussed we could order CT scan, or monitor. We talked about the red flags as well to watch for Pt would like to monitor for now. If worsens he will reach out DD: strain, or related to bladder cancer treatment I have recommended he mention this to dr day as well * Dee Flores NP - 07/01/2024 5:22 PM EDTAssociated Problem(s): Bladder cancer ([facility]) Continue with urology Would recommend saying something to urology team about the discomfort * ERIK DA SILVA - 07/01/2024 2:40 PM EDT Pt does not have pain, just sore, he started to notice protrusion when laying on his side and wouldfeel/ push around to feel pain. He would get 2-3 on the pain scale. States that it does not bother him when standing/walking, Only when sitting and laying. It has not been a big deal for the last week or so. * Dee Flores NP - 07/01/2024 2:40 PM EDT Images from the original note were not included. Darian Florentino is a 69 y.o. male presents with chief complaint of No chief complaint on file. HPI: Pt does not have pain, just sore, he started to notice protrusion when laying on his side and wouldfeel/ push around to feel pain. He would [...] Malignant neoplasm of urinary bladder, unspecified site ([facility]) Noise-induced hearing loss of both ears Osteoarthritis, [...] List Items Addressed This Visit Bladder cancer (CMS/[facility]) Continue with urology Would recommend saying something to urology team about the discomfort Cigarette smoker - Primary The patient has been advised of the risks of continued smoking: stroke, [place], all forms of cancer, lung disease, and . Options for quitting smoking include: cold turkey, hypnosis, acupuncture, nicotine replacement meds(gum, lozenges, and patches), Buproprion, and Varenicline. At this time pt is encouraged to evaluate their goals for wanting to quit smoking, and reach out toprovider when ready to start this process History of abdominal hernia Hx of this with a repair umbilical It does appear questionable if there is another hernia in the LLQ inner upper quad. No definite butpossible Discussed we could order CT scan, or monitor. We talked about the red flags as well to watch for Pt would like to monitor for now. If worsens he will reach out DD: strain, or related to bladder cancer treatment I have recommended he mention this to dr day as well * Dee Flores NP - 07/01/2024 7:22 AM EDTAssociated Problem(s): Cigarette smoker The patient has been advised of the risks of continued smoking: stroke, [place], all forms of cancer, lung disease, and . Options for quitting smoking include: cold turkey, hypnosis, acupuncture, nicotine replacement meds(gum, lozenges, and patches), Buproprion, and Varenicline. At this time pt is encouraged to evaluate their goals for wanting to quit smoking, and reach out toprovider when ready to start this process documented in this [facility]04-10-2025 Instructions* Patient Instructions* Dee Flores NP - 07/01/2024 2:40 PM EDT If red flag symptoms occur, also let urology team know about that as well documented in this [facility]03-13-2025 Evaluation note* Diagnosis Onset Date Resolution Status Admit Date Lower respiratory infection (e.g., bronchitis, pneumonia, pneumonitis, noneactive June 03, 2024 1:38pm Arthritis of right glenohumeral joint acute August 17 12:52pm Right rotator cuff tear acute M 2024 12:52pm Tendonitis of left rotator cuff acute August 17, 2024 1 2:52pm [facility] Work Phone: 1(575) 945-169301-28-2025 Hospital Discharge instructions Patient Education 04/20/2024 14:55:56 [...] if anything looks unusual. Males with a ozpdwj-nydi-hakyrb risk for skin cancer may want to see a resolution specialist (laundry washer) for an annual body check. Where to find more information [place] [employer]: cancer.org Centers for Disease Control and Prevention: cdc.gov National Cancer [place]: cancer.gov Contact a health care provider if: [...] provider. Document Revised: 03/18/2023 Document Reviewed: 09/30/2022 [employer] Patient Education 2023 Domobios. Follow Up Care 04/01/2024 13:22:55 With:BARB RAMIREZ, Tonia Vasquez, URL Address: [facility] [address] , [place] [address]- When: Unknown [facility] 01-28-2025 NotePatient Education Oncology Cancer Screening for [...] if anything looks unusual. Males with a mmzypu-iahr-bhlstr risk for skin cancer may want to see a resolution specialist (dermatologi (more content not included)...[facility]01-28-2025 Evaluation + Plan note Diagnostic Tests Pending * UroVysion Fish and Urine Cyto ([facility]) 04/20/24 [facility] 10-15-2024 Hospital Discharge instructions Patient Education [...] Follow these instructions at home: Medicines Take oclh-omq-syivcwh and prescription medicines only as told by [...] provider. Document Revised: 06/06/2021 Document Reviewed: 06/06/2021 [employer] Patient Education 2023 Domobios. 01/06/2024 14:10:50 Cancer Screening for Males Cancer [...] if anything looks unusual. Males with a gfhayg-ytfi-mxmhbq risk for skin cancer may want to see a resolution specialist (laundry washer) for an annual body check. Where to find more information [place] [employer]: cancer.org Centers for Disease Control and Prevention: cdc.gov National Cancer [place]: cancer.gov Contact a health care provider if: [...] provider. Document Revised: 03/18/2023 Document Reviewed: 09/30/2022 [employer] Patient Education 2023 Domobios. Follow Up Care 12/04/2023 11:26:46 With:BARB RAMIREZ, Tonia R, URL Address: [facility] [address] [place] [address]- When: Unknown [facility] [place] 10-15-2024 NotePatient Education Oncology Cancer Screening for [...] if anything looks unusual. Males with a dnbinx-ieyb-pkolzl risk for skin cancer may want to see a resolution specialist (laundry washer) for an annual body check. Where (more content not included)...[facility]10-15-2024 Evaluation + Plan note Diagnostic Tests Pending * UroVysion Fish and Urine Cyto ([facility]) 01/06/24 [facility] [id number] History of Present illness Narrative* Catracho Willis [...] 12/16/2023 12:16 PM EDTAssociated Problem(s): Bladder cancer ([facility]) Follow with urology. * Catracho Willis MD [...] Prediabetes Relevant Orders Hemoglobin A1c Bladder cancer ([facility]/HCC) Follow with urology. Encounter for long-term (current) [...] Relevant Orders Lipid panel documented in this encounterThe Rehabilitation [id number] Hospital Discharge instructions Patient Education 11/20/2023 14:58:25 [...] not available, use an alcohol based hand medical office technologist that contains at least 60% alcohol. Have [...] keep your urine pale yellow. Medicines Take kray-kgr-yvjjrmc and prescription medicines only as told by [...] the type of cancer being treated. Take rjtj-afk-wjmrokf and prescription medicines only as told by your health care provider. This information is not intended to replace advice given to you by your health care provider. Make sure you discuss any questions you have with your health care provider. Document Revised: 01/01/2022 Document Reviewed: 01/01/2022 [employer] Patient Education 2022 Dom[employer]ios. Follow Up Care 10/28/2023 15:46:45 With:BARB RAMIREZ, Tonia Vasquez, URL Address: [facility] [address], [place] [phone] When: Unknown Comments:sched surveillance cysto 12/2023 [facility] [place] 08-29-2024 NotePatient Education Oncology Chemotherapy Chemotherapy [...] not available, use an alcohol based hand medical office technologist that contains at least 60% alcohol. Have [...] treatment. Ask yourhealth care (more content not included)...[facility]08-22-2024 Hospital Discharge instructions Patient Education 11/13/2023 14:35:36 [...] if anything looks unusual. Men with a ldmlac-quan-bpzcrt risk for skin cancer may want to see a resolution specialist (laundry washer) for an annual body check. What are the benefits of screening? Cancer screening is done to look for cancer in the very early stages, before it spreads and becomesharder to treat and before you would start to notice symptoms. Finding cancer early improves the chances of successful treatment. It may save your life. Where to find more information [place] [employer]: www.cancer.org Centers for Disease Control and Prevention: www.cdc.gov National Cancer [place]: www.cancer.gov Contact a health care provider if: [...] provider. Document Revised: 08/06/2021 Document Reviewed: 02/04/2020 [employer] Patient Education 2022 Domobios. Follow Up Care 10/28/2023 15:39:59 With:YAHAIRA TADEO PA-C, URL Address: [address] [place] [address] When: Unknown Comments:BCG #3 of 3 in 1 week [facility] [place] 08-22-2024 NotePatient Education Oncology Cancer Screening for [...] if anything looks unusual. Men with a osmmcm-zvhh-fzxgok risk for skin cancer may want to see a resolution specialist (laundry washer) for an annual body check. What are the benefits of screening? Cancer screening is done to look for cancer in the very early stages, before it spreads and becomesharder to treat and before you would start to notice symptoms. Finding cancer early improves the chances of success (more content not included)...[facility]08-15-2024 Hospital Discharge instructions Patient Education 11/06/2023 14:46:15 [...] cells. Follow these instructions at home: Take xmin-hom-bylgxbd and prescription medicines only as told by [...] is important. Where to find more information [place] [employer] (ACS): cancer.org National Cancer [place] (NCI): cancer.gov Contact a health care provider [...] provider. Document Revised: 02/18/2022 Document Reviewed: 02/18/2022 [employer] Patient Education 2022 Domobios. Follow Up Care 10/28/2023 15:36:25 With:ETHAN VILLALTA, YAHAIRA Hallman, URL Address: [address] [place] [place] [address] When: Unknown Comments:1 week for BCG #2 of 3 half dose [facility] 08-15-2024 NotePatient Education Oncology Bladder Cancer Bladder [...] Follow these instructions at home: ? Take tvex-onf-erjhkuf and prescription medicines only as told by [...] important. Where to find more information ? [place] [employer] (ACS): cancer.org ? National Cancer [place] (NCI): cancer.gov Contact a health care provider [...] you discuss any q (more content not included)...[facility]07-09-2024 Hospital Discharge instructions Patient Education 09/30/2023 14:07:34 [...] if anything looks unusual. Men with a tpqqeb-zydw-phhwxh risk for skin cancer may want to see a resolution specialist (laundry washer) for an annual body check. What are the benefits of screening? Cancer screening is done to look for cancer in the very early stages, before it spreads and becomesharder to treat and before you would start to notice symptoms. Finding cancer early improves the chances of successful treatment. It may save your life. Where to find more information [place] [employer]: www.cancer.org Centers for Disease Control and Prevention: www.cdc.gov National Cancer [place]: www.cancer.gov Contact a health care provider if: [...] provider. Document Revised: 08/06/2021 Document Reviewed: 02/04/2020 [employer] Patient Education 2022 Domobios. Follow Up Care 08/08/2023 12:56:50 With:BARB RAMIREZ, Tonia Vasquez, URL Address: [facility] [address] , [place] [phone] When: Unknown Comments:schedule 3 BCGs, cyst in 3 mos [facility] [place] 07-09-2024 Evaluation + Plan note Diagnostic Tests Pending * UroVysion Fish and Urine Cyto ([facility]) 09/30/23 [facility]04-02-2024 Hospital Discharge instructions Patient Education 06/24/2023 [...] if anything looks unusual. Men with a bhjrxm-gkmn-lfjodv risk for skin cancer may want to see a resolution specialist (laundry washer) for an annual body check. What are the benefits of screening? Cancer screening is done to look for cancer in the very early stages, before it spreads and becomesharder to treat and before you would start to notice symptoms. Finding cancer early improves the chances of successful treatment. It may save your life. Where to find more information [place] [employer]: www.cancer.org Centers for Disease Control and Prevention: www.cdc.gov National Cancer [place]: www.cancer.gov Contact a health care provider if: [...] provider. Document Revised: 08/06/2021 Document Reviewed: 02/04/2020 [employer] Patient Education 2022 [employer] Inc. Follow Up Care 06/16/2023 14:01:03 With:BARB RAMIREZ, Tonia Vasquez, URL Address: [facility] [address], [place] [phone] When: Unknown [facility] [place] 04-02-2024 Evaluation + Plan note Diagnostic Tests Pending * UroVysion Fish and Urine Cyto ([facility]) 06/24/23 [facility]02-20-2024 Hospital Discharge instructions Patient Education 05/13/2023 [...] cells. Follow these instructions at home: Take sriy-xxd-jsszqig and prescription medicines only as told by [...] is important. Where to find more information [place] [employer] (ACS): cancer.org National Cancer [place] (NCI): cancer.gov Contact a health care provider [...] provider. Document Revised: 02/18/2022 Document Reviewed: 02/18/2022 [employer] Patient Education 2022 Domobios. Follow Up Care 03/28/2023 10:45:13 With:[facility] Address: [address] [place] [place] [address] Business (1) When: Unknown Comments:for procedure as scheduled [facility] 02-12-2024 Hospital Discharge instructions Patient Education 05/05/2023 [...] not available, use an alcohol based hand medical office technologist that contains at least 60% alcohol. Have [...] keep your urine pale yellow. Medicines Take didi-pwq-wkkyble and prescription medicines only as told by [...] the type of cancer being treated. Take vewk-njo-rvzjwod and prescription medicines only as told by your health care provider. This information is not intended to replace advice given to you by your health care provider. Make sure you discuss any questions you have with your health care provider. Document Revised: 01/01/2022 Document Reviewed: 01/01/2022 [employer] Patient Education 2022 Domobios. Follow Up Care 03/28/2023 10:43:05 With:BARB RAMIREZ, Tonia Vasquez, URL Address: [facility] [address] , [place] [phone] When: Unknown Comments:BCG #3/3 on 05/13/23 [facility] [place] 01-05-2024 Evaluation note* Encounter Date Diagnosis [...] no improvement in 2 to 3 days [facility] Other 12-11-2023 Hospital Discharge instructions Patient Education [...] cells. Follow these instructions at home: Take pnyb-jkv-djzkvbb and prescription medicines only as told by [...] is important. Where to find more information [place] [employer] (ACS): cancer.org National Cancer [place] (NCI): cancer.gov Contact a health care provider [...] provider. Document Revised: 02/18/2022 Document Reviewed: 02/18/2022 [employer] Patient Education 2022 Domobios. Follow Up Care 01/17/2023 11:24:37 With:BARB RAMIREZ, Tonia Vasquez, URL Address: [facility] [address], [place] [address]- When: Unknown Comments:After BCG treatments. [facility] 10-27-2023 Hospital Discharge instructions Patient Education 01/17/2023 [...] cells. Follow these instructions at home: Take tmjd-ulq-vqimsxd and prescription medicines only as told by [...] is important. Where to find more information [place] [employer] (ACS): cancer.org National Cancer [place] (NCI): cancer.gov Contact a health care provider [...] provider. Document Revised: 02/18/2022 Document Reviewed: 02/18/2022 [employer] Patient Education 2022 Domobios. Follow Up Care 12/12/2022 09:52:31 With:BARB RAMIREZ, Tonia Vasquez, URL Address: [address] [place], [place] [address]- When: Unknown [facility] 09-19-2023 Hospital Discharge instructions Patient Education 12/10/2022 [...] cells. Follow these instructions at home: Take jnic-dos-bvtsnxx and prescription medicines only as told by [...] is important. Where to find more information [place] [employer] (ACS): cancer.org National Cancer [place] (NCI): cancer.gov Contact a health care provider [...] provider. Document Revised: 02/18/2022 Document Reviewed: 02/18/2022 [employer] Patient Education 2022 Domobios. Follow Up Care 10/29/2022 16:25:46 With:BARB RAMIREZ, Tonia Vasquez, URL Address: [facility] [address] [place] [phone] When: Unknown Comments:piter PONCE [facility] 08-01-2023 Hospital Discharge instructions Patient Education 10/22/2022 [...] cells. Follow these instructions at home: Take ihos-xys-lbecjne and prescription medicines only as told by [...] is important. Where to find more information [place] [employer] (ACS): cancer.org National Cancer [place] (NCI): cancer.gov Contact a health care provider [...] provider. Document Revised: 02/18/2022 Document Reviewed: 02/18/2022 [employer] Patient Education 2022 [employer] Inc. Follow Up Care 09/17/2022 13:12:31 With:BARB RAMIREZ, oTnia Vasquez, URL Address: [address] [place] [address] [place] [address] When: Unknown [facility] 07-18-2023 Hospital Discharge instructions Patient Education 10/08/2022 [...] cells. Follow these instructions at home: Take jvdh-avw-xqdhohx and prescription medicines only as told by [...] is important. Where to find more information [place] [employer] (ACS): cancer.org National Cancer [place] (NCI): cancer.gov Contact a health care provider [...] Document Reviewed: 02/18/2022 Elsevier Patient Education 2022 Domobios. Follow Up Care 08/01/2022 10:02:51 With:BARB RAMIREZ, Tonia Vasquez, URL Address: [address] [place] [address] [place] [address] When: Unknown [facility] Hospital Discharge instructions Patient Education 09/17/2022 [...] cells. Follow these instructions at home: Take peqb-tfp-qjdtmxr and prescription medicines only as told by [...] is important. Where to find more information [place] [employer] (ACS): cancer.org National Cancer [place] (NCI): cancer.gov Contact a health care provider [...] provider. Document Revised: 02/18/2022 Document Reviewed: 02/18/2022 [employer] Patient Education 2022 Domobios. Follow Up Care 08/01/2022 09:55:17 With:ETHAN VILLALTA, YAHAIRA Hallman, URL Address: [address] [place] [address] When:Within 1 Week(s) Comments:Piter BCG #4 [facility] 06-20-2023 Hospital Discharge instructions Patient Education 09/10/2022 [...] cells. Follow these instructions at home: Take ttet-csb-ajbbhyl and prescription medicines only as told by [...] is important. Where to find more information [place] [employer] (ACS): cancer.org National Cancer [place] (NCI): cancer.gov Contact a health care provider [...] provider. Document Revised: 02/18/2022 Document Reviewed: 02/18/2022 [employer] Patient Education 2022 Domobios. Follow Up Care 08/01/2022 09:51:36 With:[facility] Address: [facility] [place] [address] Business (1) When: Unknown Comments:for procedure as scheduled [facility] 06-13-2023 Hospital Discharge instructions Patient Education 09/03/2022 [...] cells. Follow these instructions at home: Take ppep-ppb-yeantpq and prescription medicines only as told by [...] is important. Where to find more information [place] [employer] (ACS): cancer.org National Cancer [place] (NCI): cancer.gov Contact a health care provider [...] Document Reviewed: 02/18/2022 Elsevier Patient Education 2022 Domobios. [facility] 06-06-2023 Hospital Discharge instructions Patient Education 08/27/2022 [...] Follow these instructions at home: Medicines Take vibt-xil-xdajosb and prescription medicines only as told by [...] Document Reviewed: 10/20/2020 Elsevier Patient Education 2022 Domobios. [facility] [place] 05-05-2023 Hospital Discharge instructions Patient Education 07/26/2022 [...] cells. Follow these instructions at home: Take urtt-jgx-jumzxxl and prescription medicines only as told by [...] is important. Where to find more information [place] [employer] (ACS): cancer.org National Cancer [place] (NCI): cancer.gov Contact a health care provider [...] provider. Document Revised: 02/18/2022 Document Reviewed: 02/18/2022 [employer] Patient Education 2022 Domobios. Follow Up Care 07/16/2022 10:49:06 With:BARB RAMIREZ, Tonia Vasquez, URL Address: [address] [place] [address]- When: Unknown [facility] 04-26-2023 NotePROCEDURE: XR CHEST 2 V DATE: [...] Electronically authenticated by: NORMA SMALL Date: 2022-07-17 09:32[facility]04-25-2023 Evaluation + Plan noteExtracted from: Title:Urology Progress Note Author:BARB RAMIREZ, Max Vasquez Date:07/16/22 Impression and Plan Impression: #1. This gentleman's gross hematuria seems to be from multiple bladder tumors. These need to get resected. Plan: #1. We are getting him scheduled to go under anesthesia with paralysis for TURBT, left ureteroscopy, possible laser of bladder tumors and left stent placement. Future Appointments Appointment Date:07/26/2022 08:30:00 AM Scheduled Provider:Tonia DAY MD [facility] Appointment Type:URO Office Visit Appointment Date:01/10/2023 10:45:00 AM Scheduled Provider:Tonia DAY MD Location:[facility] Appointment Type:URO Office Visit Diagnostic Tests Pending * UroVysion Fish and Urine Cyto ([facility]) 07/16/22 [facility]04-25-2023 Hospital Discharge instructions Patient Education 07/16/2022 [...] With:Tonia DAY Address: [facility] [address] [place] [address]- Business (1) When: Unknown Comments:Office will call to schedule follow up [facility]03-20-2023 Evaluation note* Encounter Date Diagnosis Assessment [...] Primary osteoarthritis, right shoulder (ICD-10 - M19.011) [facility] Other 01-06-2023 Evaluation note* Encounter Date Diagnosis [...] Dr. Cooper for evaluation and further treatment. [facility] Other 10-17-2022 Hospital Discharge instructions Patient Education [...] if anything looks unusual. Men with a tspcid-bnmu-turwkf risk for skin cancer may want to see a resolution specialist (laundry washer) for an annual body check. Where to find more information National Cancer [place]: https://www.cancer.gov/about-cancer/screening Centers for Disease Control and Prevention: https://www.cdc.gov/cancer/dcpc/prevention/screening.htm [place] [employer]: https://www.cancer.org/latest-news/6-fqaqop-bwbzzmbcu-dzfax-efh-nfx.html Contact a health care provider if: You [...] 12/05/2016 Document Revised: 11/27/2018 Document Reviewed: 12/05/2016 [employer] Patient Education 2020 Domobios. Follow Up Care 12/04/2020 12:10:49 With:BARB RAMIREZ, Tonia Vasquez, URL Address: [facility] [address] [place] [phone] When:01/07/2023 Comments:PSA [facility] [place] 09-12-2022 Evaluation note* Encounter Date Diagnosis [...] left hamstring, initial encounter (ICD-10 - S76.312A) [facility] Other 08-11-2022 Evaluation note* Encounter Date Diagnosis Assessment Notes Treatment Notes Treatment Clinical Notes Oct, Status post total left knee replacement (ICD-10 - Z96.652) [facility] Other 07-08-2022 Evaluation note* Encounter Date Diagnosis [...] left hamstring, initial encounter (ICD-10 - S76.312A) [facility] Other 05-27-2022 Evaluation note* Encounter Date Diagnosis [...] use of Tylenol as needed for pain. [facility] Other 05-11-2022 Evaluation note* Encounter Date Diagnosis [...] time. Continue icing for his hamstring ecchymosis. [facility] Other 04-27-2022 Evaluation note* Encounter Date Diagnosis [...] and strengthening exercises. Call with questions/concerns . [facility] Other 04-11-2022 Evaluation note* Encounter Date Diagnosis [...] done prior to surgical procedure to limit raomna-operative risks. I have discussed the planned procedure, [...] M25.562) Jun, Pre-op exam (ICD-10 - Z01.818) [facility] Other 01-31-2022 Evaluation note* Encounter Date Diagnosis [...] pain of left knee (ICD-10 - M25.562) [facility] Other 12-20-2021 Evaluation note* Encounter Date Diagnosis [...] portal. He tolerated this well. Did discuss vify-gdz-hrcssde anti-inflammatory medications and handout has been given. We have sent Mary Louadam to the pharmacy. I will plan to [...] pain of left knee (ICD-10 - M25.562) [facility] Other 11-22-2021 Evaluation note* Encounter Date Diagnosis [...] pain of left knee (ICD-10 - M25.562) [facility] Other 10-20-2021 Evaluation note* Encounter Date Diagnosis [...] as documented in the electronic medical record. [facility] Other 04-07-2011 History general Narrative - Reported* Type Description Date Medical History knee pain Medical History Arthritis Medical History sleeping disorder Surgical History right total knee arthroplasty Surgical History bilateral shoulders [facility] Other 04-07-2011 History general Narrative - Reported* Type Description Date Medical History knee pain Medical History Arthritis Medical History sleeping disorder Medical History acid reflux Surgical History right partial knee arthroplasty 06/28/10 Surgical History bilateral shoulders [facility] Other 04-07-2011 History general Narrative - Reported* Type Description Date Medical History knee pain Medical History Arthritis Medical History sleeping disorder Medical History acid reflux Surgical History right partial knee arthroplasty 06/28/10 Surgical History bilateral shoulders Surgical History LT TKR 07/05/2021 [facility] Other 04-07-2011 History general Narrative - Reported* Type Description Date Medical History knee pain Medical History Arthritis Medical History sleeping disorder Medical History acid reflux Surgical History right partial knee arthroplasty 06/28/10 Surgical History bilateral shoulders Right Cuff Repair Surgical History LT TKR 07/05/2021 [facility] Other 04-07-2011 History general Narrative - Reported* Type Description Date Medical History knee pain Medical History Arthritis Medical History sleeping disorder Medical History acid reflux Surgical History right partial knee arthroplasty 06/28/10 Surgical History bilateral shoulders Right Cuff Repair Surgical History LT TKR 07/05/2021 Surgical History bladder cancer 2022 [facility] Other Evaluation + Plan note Future Appointments Appointment Date:01/10/2023 10:45:00 AM Scheduled Provider:Tonia DAY MD Location:[facility] Appointment Type:URO Office Visit Diagnostic Tests Pending * PSA Total 01/07/22 [facility] Administration evaluation + Plan note Future Appointments Appointment Date:01/10/2023 10:45:00 AM Scheduled Provider:Tonia DAY MD Location:[facility] Appointment Type:URO Office Visit [facility] evaluation + Plan note Future Appointments Appointment Date:09/03/2022 08:45:00 AM Scheduled Provider:YAHAIRA TADEO PA-C Location:[facility] Appointment Type:URO Office Visit Appointment Date:09/10/2022 08:45:00 AM Scheduled Provider:YAHAIRA TADEO PA-C Location:[facility] Appointment Type:URO Office Visit Appointment Date:09/17/2022 08:45:00 AM Scheduled Provider:YAHAIRA TADEO PA-C Location:[facility] Appointment Type:URO Office Visit Appointment Date:10/01/2022 08:45:00 AM Scheduled Provider:YAHAIRA TADEO PA-C Location:[facility] Appointment Type:URO Office Visit Appointment Date:10/08/2022 08:45:00 AM Scheduled Provider:YAHAIRA TADEO PA-C Location:[facility] Appointment Type:URO Office Visit Appointment Date:01/10/2023 10:45:00 AM Scheduled Provider:Tonia DAY MD Location:[facility] Appointment Type:URO Office Visit [facility] evaluation + Plan note Future Appointments Appointment Date:09/03/2022 08:45:00 AM Scheduled Provider:YAHAIRA TADEO PA-C Location:[facility] Appointment Type:URO Office Visit Appointment Date:09/10/2022 08:45:00 AM Scheduled Provider:YAHAIRA TADEO PA-C Location:[facility] Appointment Type:URO Office Visit Appointment Date:09/17/2022 08:45:00 AM Scheduled Provider:YAHAIRA TADEO PA-C Location:[facility] Appointment Type:URO Office Visit Appointment Date:10/01/2022 08:45:00 AM Scheduled Provider:YAHAIRA TADEO PA-C Location:[facility] Appointment Type:URO Office Visit Appointment Date:10/08/2022 08:45:00 AM Scheduled Provider:YAHAIRA TADEO PA-C Location:[facility] Appointment Type:URO Office Visit Appointment Date:01/10/2023 10:45:00 AM Scheduled Provider:Tonia DAY MD Location:[facility] Appointment Type:URO Office Visit Diagnostic Tests Pending * [facility] App[facility]ments Appointment Date:09/10/2022 08:45:00 AM Scheduled Provider:YAHAIRA TADEO PA-C Location:[facility] Appointment Type:URO Office Visit Appointment Date:09/17/2022 08:45:00 AM Scheduled Provider:YAHAIRA TADEO PA-C Location:[facility] Appointment Type:URO Office Visit Appointment Date:10/01/2022 08:45:00 AM Scheduled Provider:YAHAIRA TADEO PA-C Location:[facility] Appointment Type:URO Office Visit Appointment Date:10/08/2022 08:45:00 AM Scheduled Provider:YAHAIRA TADEO PA-C Location:[facility] Appointment Type:URO Office Visit Appointment Date:01/10/2023 10:45:00 AM Scheduled Provider:Tonia DAY MD Location:[facility] Appointment Type:URO Office Visit [facility] evaluation + Plan note Future Appointments Appointment Date:09/17/2022 08:45:00 AM Scheduled Provider:YAHAIRA TADEO PA-C Location:[facility] Appointment Type:URO Office Visit Appointment Date:10/01/2022 08:45:00 AM Scheduled Provider:YAHAIRA TADEO PA-C Location:[facility] Appointment Type:URO Office Visit Appointment Date:10/08/2022 08:45:00 AM Scheduled Provider:YAHAIRA TADEO PA-C Location:[facility] Appointment Type:URO Office Visit Appointment Date:01/10/2023 10:45:00 AM Scheduled Provider:Tonia DAY MD Location:[facility] Appointment Type:URO Office Visit [facility] evaluation + Plan note Future Appointments Appointment Date:10/08/2022 08:45:00 AM Scheduled Provider:YAHAIRA TADEO PA-C Location:[facility] Appointment Type:URO Office Visit Appointment Date:10/14/2022 09:30:00 AM Scheduled Provider:Tonia DAY MD Location:[facility] Appointment Type:URO Office Visit Appointment Date:10/22/2022 08:45:00 AM Scheduled Provider:YAHAIRA TADEO PA-C Location:[facility] Appointment Type:URO Office Visit Appointment Date:01/10/2023 10:45:00 AM Scheduled Provider:Tonia DAY MD Location:[facility] Appointment Type:URO Office Visit [facility] evaluation + Plan note Future Appointments Appointment Date:10/14/2022 09:30:00 AM Scheduled Provider:Tonia DAY MD Location:[facility] Appointment Type:URO Office Visit Appointment Date:10/22/2022 08:45:00 AM Scheduled Provider:YAHAIRA TADEO PA-C Location:[facility] Appointment Type:URO Office Visit Appointment Date:01/10/2023 10:45:00 AM Scheduled Provider:Tonia DAY MD Location:[facility] Appointment Type:URO Office Visit [facility] evaluation + Plan note Future Appointments Appointment Date:12/10/2022 01:30:00 PM Scheduled Provider:Tonia DAY MD Location:[facility] Appointment Type:URO Procedure 15 min Diagnostic Tests Pending * PSA Total [facility]09[facility] Future App[facility]ments Appointment Date:12/10/2022 01:30:00 PM Scheduled Provider:Tonia DAY MD Location[facility] Appointment Type:URO Procedure 15 min [facility] evaluation + Plan note Future Appointments Appointment Date:03/03/2023 09:00:00 AM Scheduled Provider:Tonia DAY MD Location:[facility] Appointment Type:URO Office Visit [facility] evaluation + Plan note Future Appointments Appointment Date:05/13/2023 09:00:00 AM Scheduled Provider:YAHAIRA TADEO PA-C Location:[facility] Appointment Type:URO Office Visit [facility] evaluation + Plan note Future Appointments Appointment Date:06/24/2023 01:15:00 PM Scheduled Provider:Tonia DAY MD Location:[facility] Appointment Type:URO Procedure 15 min [facility] evaluation + Plan note Future Appointments Appointment Date:11/13/2023 02:20:00 PM Scheduled Provider:YAHAIRA TADEO PA-C Location:[facility] Appointment Type:URO Office Visit Appointment Date:11/20/2023 02:20:00 PM Scheduled Provider:YAHAIRA TADEO PA-C Location:[facility] Appointment Type:URO Office Visit [facility] evaluation + Plan note Future Appointments Appointment Date:11/20/2023 02:20:00 PM Scheduled Provider:YAHAIRA TADEO PA-C Location:[facility] Appointment Type:URO Office Visit [facility] evaluation noteNo InformationNortEstoreify Other Evaluation noteNo assessment information available [facility] Work Phone: Evaluation note* Diagnosis Medicare annual [...] Malignant neoplasm of urinary bladder, unspecified site ([facility]) Pneumonia due to infectious organism, unspecified laterality, unspecified part of lung- Primary Chronic obstructive pulmonary disease, unspecified COPD type ([facility]/HCC) Cigarette smoker Tobacco use disorder Malignant neoplasm of bladder, unspecified History of abdominal hernia- Primary Cigarette smoker Tobacco use disorder Malignant neoplasm of urinary bladder, unspecified site ([facility]/HCC) History of abdominal hernia- Primary Generalized abdominal pain Abdominal pain, generalized documented in this encounter [facility] HealthcareEvaluation note* Diagnosis Onset Date Resolution Status Admit Date Medicare annual wellness visit, subsequent acute November 10:01am [facility] Work Phone: Hospital course Narrative No data available for this section [facility] Discharge instructions No data available for this section [facility] No data available for this section [facility] reason for referral (narrative)No reason for referral information availableDetw[facility] Work Phone: Summary Purpose Family History No Family History [...] left rotator cuff July 12:52pm Reason for Visit Admit Date [place] [facility] [place] December 20, 2024 10:01am Chief Complaint Admit Date M75.101 - Unspecified rotator cuff tear or rupture December 21, 2024 9:49am OP SP RT SHOULDER PAIN WANTS INJ Septemb er 2024 10:23am Reason for Visit Admit Date [place] [facility] December 20, 2024 10:01am Arthritis of right glenohumeral joint Se ptember 2024 10:23am Bladder cancer December 21, 2024 10:23am Right rotator cuff tear December 21, 2024 10:23am Tendonitis of left rotator cuff Septembe r 2024 10:23am History of repair of rotator cuff Septem bill 2024 10:23am Reason for Referral Reason 06/10/22 @ 10:30 c onsult for right shoulder pain Diagnosis 1 Pain in right should er (M25.511) Referral Organization [facility] Dora Stephens pedjay Referring Provider First Name Nahid Referring Provider Last Name Trish Referring Provider Specialty Orthopedic Surgery Referred Organization [facility] Referred Provider Mickie Cooper Referred Address [address], [place],[address] Referred Provider Specialty Orthopedic S urgery Referral [...] and content) DATE CREATED AUTHOR 08/24/2018 [facility] DATE CREATED AUTHOR AUTHOR'S ORGANIZ ATION 07/31/2022 [facility] DATE CREATED AUTHOR AUTHOR'S ORGANIZ ATION 03/17/2024 [facility] DATE CREATED AUTHOR AUTHOR'S ORGANIZ ATION 07/03/2024 [facility] EPIC DATE CREATED AUTHOR AUTHOR'S ORGANIZ ATION 08/25/2024 [facility] DATE CREATED AUTHOR AUTHOR'S ORGANIZ ATION 09/04/2024 [facility] DATE CREATED AUTHOR AUTHOR'S ORGANIZ ATION 10/09/2024 [facility] DATE CREATED AUTHOR AUTHOR'S ORGANIZ ATION 12/14/2024 [facility] DATE CREATED AUTHOR AUTHOR'S ORGANIZ ATION 12/31/2024 [facility] REASON FOR VISIT (unrecogniz ed section and [...] Active Mickie Cooper MD Attending Provider Active 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 Start Date End Date Catracho Willis MD [address] [place] [phone] PCP - General Family Medicine 08/20/23 Catracho Willis MD [address] [place] [address] PCP Shantal Amado MA 08/23/23 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 Start Date End Date Catracho Willis MD [address] [place] [phone] PCP - General Family Medicine 08/20/23 Cartacho Willis MD [address] [place] [address] PCP Shantal Amado MA 08/23/23 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 Start Date End Date Catracho Willis MD [address] [place] [address] PCP - General Family Medicine 08/20/23 Catracho Willis MD [address] [place] [address] PCP Shantal Amado MA 08/23/23 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 Start Date End Date Catracho Willis MD [address] [place] [address] PCP - General Family Medicine 08/20/23 Catracho Willis MD [address] [place] [address] PCP Shantal Amado MA 08/23/23 Team Status: Inactive Member Role Status Dates Catracho Willis MD Primary Care Provider Active S tart: June 03, 2024 End: June 03, 2024 Asha Dacosta APRN Attending Provider Active Start: June 03, 2024 End: June 03, 2024 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 Start Date End Date Catracho Willis MD [address] [place] [address] PCP - General Family Medicine 08/20/23 Catracho Willis MD [address] [place] [address] PCP - Aneudy ARANGO 08/23/23 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 Start Date End Date Catracho Willis MD [address] [place] [address] PCP - General Family Medicine 08/20/23 Catracho Willis MD [address] [place] [address] PCP - Aneudy ARANGO 08/23/23 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 Start Date End Date Catracho Willis MD [address] [place] [phone] PCP - General Family Medicine 08/20/23 Catracho Willis MD [address] [place] [address] PCP - Aneudy ARANGO 08/23/23 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 Start Date End Date Catracho Willis MD [address] [place] [phone] PCP - General Family Medicine 08/20/23 Team Status: Active Member Role Status Kashmir Cooper MD Attending Provider Active Star t: August 17, 2024 Catracho Willis MD Primary Care Provider Active S tart: August 17, 2024 Team Status: Inactive Member Role Status Kashmir Willis MD Primary Care Provider Active S tart: August 17, 2024 End: August 17, 2024 Mickie Cooper MD Attending Provider Active Star t: August 17, 2024 End: August 17, 2024 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 Start Date End Date Catracho Willis MD [address] [place] [address] PCP - General Family Medicine 08/20/23 Team Status: Inactive Member Role Status Kashmir Cooper MD Attending Provider Active Star t: August 17, 2024 End: August 17, 2024 Catracho Willis MD Primary Care Provider Active S tart: August 17, 2024 End: August 17, 2024 Team Status: Inactive Member Role Status Kashmir Willis MD Primary Care Provider Active S tart: December 20, 2024 End: December 20, 2024 Catracho Willis MD Attending Provider Active Star t: December 20, 2024 End: December 20, 2024 Team Status: Active Member Role Status Kashmir Cooper MD Attending Provider Active Star t: December 21, 2024 Catracho Willis MD Primary Care Provider Active S tart: December 21, 2024 Team Status: Inactive Member Role Status Kashmir Willis MD Primary Care Provider Active S tart: December 21, 2024 End: December 21, 2024 Mickie Cooper MD Attending Provider Active Star t: December 21, 2024 End: December 21, 2024 Team Status: Inactive Member Role Status Kashmir Cooper MD Attending Provider Active Star t: December 21, 2024 End: December 21, 2024 Catracho Willis MD Primary Care Provider Active S tart: December 21, 2024 End: December 21, 2024 Goals (unrecognized section and content) Goals [...] BE BASED ON THE PRIMARY CLINICAL RECORDS. [facility]. provides no warranty or guarantee of the accuracy or completeness of information in this document.
[2024-12-31 11:23] LABS: Hematocrit 45.9 % (42.0-54.0); Hemoglobin 15.2 g/dL (14.0-18.0); Immature Granulocytes Abs Auto 0.10 10^3/uL (0.00-0.03); Immature Granulocytes Pct Auto 1.1 % (0.0-0.5); Lymphocytes Absolute Auto 2.0 10^3/uL (1.2-3.8); Mean Corpuscular HGB Conc 33.1 g/dL (29.9-35.2); Mean Corpuscular Hemoglobin 31.1 pg (25.9-34.0); Mean Corpuscular Volume 94.1 fL (80.0-94.0); Platelet Count 266 10^3/uL (150-450); Red Blood Count 4.88 10^6/uL (4.70-6.10); White Blood Count 9.5 10^3/uL (4.0-11.0)
[2024-12-31 13:47] LABS: Alanine Aminotransferase 26 U/L (16-63); Albumin Globulin Ratio 1.2; Albumin Level 3.9 g/dL (3.4-5.0); Alkaline Phosphatase 67 U/L (46-116); Anion Gap 10.9; Aspartate Amino Transferase 21 U/L (15-37); Blood Urea Nitrogen 17.0 mg/dL (7.0-18.0); Calcium 9.1 mg/dL (8.5-10.1); Carbon Dioxide 28.3 mmol/L (21.0-32.0); Chloride 105 mmol/L (98-107); Cholesterol 193 mg/dL (<=200); Estimated GFR (African America >60 (>=60 mL/min/1.73m^2); Estimated GFR (Non-African Ame >60 (>=60 mL/min/1.73m^2); Globulin 3.3 g/dL; Glucose 97 mg/dL (74-106); HDL Cholesterol 53 mg/dL (40-60); Potassium 4.2 mmol/L (3.5-5.1); Sodium 140 mmol/L (136-145); Thyroid Stimulating Hormone 1.549 uIU/mL (0.358-3.740); Total Protein 7.2 g/dL (6.4-8.2); Triglycerides 37 mg/dL (<=150); VLDL CHOLESTEROL 7.4 mg/dL
== END 2024-12-31 09:15 | disposition home or self-care (01) ==
LOC: LAB 09:14
PROVIDERS: PCP Family Medicine; Visit Provider Family Medicine
DX: R73.03 Prediabetes (principal); E78.5 Hyperlipidemia, unspecified; Z79.899 Other long term (current) drug therapy; R53.83 Other fatigue
CPT/HCPCS: 36415; 80053; 80061; 83036; 84443; 85025